=== PATIENT | male | born 1980 | race Caucasian/White ===

== ENCOUNTER 2020-01-16 00:09 | Inpatient (IN) | payer OTHER ==
[~2020-01-16] VITALS: Ht 170 cm; Wt 69.1 kg
[2020-01-16] VITALS (25 sets, daily range): BP systolic 85–132; BP diastolic 53–80
[~2020-01-16 00:09] MED LIST: ALPR2TAB6 PO; HALOPERIDOL 5 MG/ML (HALDOL) AMP ONE; HYOS0.1217 PO; INSU100I10 SQ; INSU100I14 SQ; INSU100I29 SQ; LORazepam INJ 2 MG/ML (ATIVAN) VIAL ONE; NF-ADDXR30 PO; ONDA-42 SL; RISP1TAB3 PO; VENL150C PO; diphenhydrAMINE 50 MG/ML INJ (BENADRYL) ONE
[2020-01-16] MEDS ORDERED: NS IV 1000 ML 1,000 ML IV SCH ×2 (00:10→00:50)
[2020-01-16] MEDS ORDERED: HALOPERIDOL 5 MG/ML (HALDOL) AMP IM/IV ONE (00:15)
[2020-01-16] MEDS ORDERED: diphenhydrAMINE 50 MG/ML INJ (BENADRYL) IVP ONE ×2 (00:15→00:30)
[2020-01-16] MEDS ORDERED: LORazepam INJ 2 MG/ML (ATIVAN) VIAL IVP ONE ×2 (00:15→00:30)
--- OUTSIDE RECORDS SUMMARY | 2020-01-16 00:16 | XMS REPORT ---
Author Author Darien VILLALOBOS Organization [facility] Address [address] [place] [address] Care Team Providers Care Building Associate Name Role Phone CHRISTOPHER VILLALOBOS Unavailable PROBLEMS Type Condition ICD9-CM Code [id number] Code Onset Dates Condition S tatus SNOMED Code Problem Diabetes type 1, controlled E10.9 Ac tive [id number] Problem Type 2 diabetes mellitus with hyperglycemia E11.65 Active 283279801618887 Problem Type 1 diabetes mellitus with hyperglycemia E10.65 Active [id number] Problem Uncontrolled type 1 diabetes mellitus without complication E10.9 Active 859090100 Problem Type 1 diabetes mellitus without complication E10. 9 Active 523432013 Problem Type 1 diabetes mellitus with diabetic polyneuropathy E10.42 Active 81785082 Problem Mood disorder F39 Active 297266 05 Problem Other chronic pain G89.29 Active 8 8128932 Problem Schizoaffective disorder, depressive type F25.1 Active [id number] ALLERGIES No Information ENCOUNTERS Encounter Location Date Diagnosis [facility] [address] [facility] [id number] [address] [place] [address] Oct, [facility] [address] [facility] [id number] [address] [place] [address] Jun, [facility] [address] [facility] [id number] [address] [place] [address] Jun, [facility] [address] [facility] [id number] [address] [place] [address] Jun, [facility] [address] [facility] [id number] [address] [place] [address] May, Type 1 diabetes mellitus wit hout complication E10.9 [facility] [address] [facility] [id number] [address] [place] [address] May, Type 1 diabetes mellitus wit hout complication E10.9 ; Encounter for immunization Z23 and Mood disorder F39 [facility] [address] [id number] [address] [place] [address] December, [place] [address] [id number] [address] [place] [address] Nov, [place] [address] [facility] [id number] [address] [place] [address] Nov, Uncontrolled type 1 diabetes mellitus without complication E10.9 [place] [address] [facility] [id number] [address] [place] [address] Nov, Impingement syndrome, should er, right M75.41 and Adhesive capsulitis of right shoulder M75.01 [place] [address] [facility] [id number] [address] [place] [address] Nov, Uncontrolled type 1 diabetes mellitus without complication E10.9 [place] [address] [place] [id number] [address] [place] [address] Oct, Uncontrolled type 1 diabetes mellitus without complication E10.9 ; Other chronic pain G89.29 ; Pain in right shoulder M25.511 and Schizoaffective disorder, depressive type F25.1 [place] [address] [facility] [id number] [address] [place] [address] May, Mood disorder F39 and Contro lled diabetes mellitus type 1 without complications E10.9 [place] [address] [facility] [id number] [address] [place] [address] May, [place] [address] [facility] [id number] [address] [place] [address] May, [place] [address] [facility] [id number] [address] [place] [address] 30 Apr, 2016 Mood disorder F39 ; 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 and Type 1 diabetes mellitus with hyperglycemia E10.65 [place] [address] [facility] [id number] [address] [place] [address] Apr, Mood disorder F39 [place] [address] [id number] [address] [place] [address] Mar, [facility] [address] [id number] [address] [place] [address] Feb, [facility] [address] [id number] [address] [place] [address] Jan, [facility] [address] [facility] [id number] [address] [place] [address] Jan, [facility] [address] [id number] [address] [place] [address] Jan, [facility] [address] [facility] [id number] [address] [place] [address] December, [facility] [address] [facility] [id number] [address] [place] [address] December, 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 and Controlled type 1 diabetes mellitus with diabetic neuropathy, with long-term current use of insulin E10.40 [facility] [address] [facility] [id number] [address] [place] [address] December, Schizo-affective schizophren ia F25.0 [facility] [address] [facility] [id number] [address] [place] [address] Nov, [facility] [address] [facility] [id number] [address] [place] [address] Nov, Anxiety disorder, unspecifie d F41.9 and Schizo-affective schizophrenia F25.0 [facility] [address] [facility] [id number] [address] [place] [address] Nov, Schizo-affective schizophren ia F25.0 [facility] [address] [facility] [id number] [address] [place] [address] Oct, [facility] [address] [facility] [id number] [address] [place] [address] Sep, [facility] [address] [place] [id number] [address] [place] [address] Sep, [facility] [address] [place] [id number] [place] [address] Sep, [facility] [address] [place] [id number] [address] [place] [address] Aug, [facility] [address] [address] Aug, [facility] [address] [place] [id number] [place] [address] Jul, [place] [address] [address] Jul, Diabetes type 1, controlled E10.9 [place] [address] [address] Jun, Diabetes mellitus without me ntion of complication, type II or unspecified type, uncontrolled 250.02 [place] [address] [address] 09 Jun, 2015 Diabetes type 1, controlled E10.9 [place] [address] [address] May, Diabetes mellitus without me ntion of complication, type II or unspecified type, uncontrolled 250.02 [place] [address] [address] May, Anxiety 300.00 [facility] [address] [id number] 09 May, 2015 Diabetes type 1, controlled E10.9 ; Schizo-affective schizophrenia F25.0 ; Mood disorder F39 and Bipolar 1 disorder F31.9 [place] [address] [address] May, [facility] [address] [address] May, Anxiety F41.9 and Depression F32.9 [facility] [address] [address] Apr, Diabetes mellitus without me ntion of complication, type II or unspecified type, uncontrolled 250.02 [facility] [address] [place] [id number] [place] [address] Apr, Anxiety 300.00 and Diabetes mellitus without mention of complication, type II or unspecified type, uncontrolled 250.02 [facility] [address] [address] Apr, [facility] [address] [address] Apr, Anxiety 300.00 and Depressio n 311 [facility] [address] [address] Apr, Major depression, recurrent 296.30 ; Anxiety, generalized 300.02 and No condition on Prole II V71.09 [facility] [address] [address] Apr, [facility] [address] [address] Mar, Diabetes mellitus without me ntion of complication, type II or unspecified type, uncontrolled 250.02 and Anxiety 300.00 [facility] [address] [address] Mar, [facility] [address] [address] Feb, [facility] [address] [address] Feb, [facility] [address] [address] Feb, [facility] [address] [address] Jan, [facility] [address] [id number] [address] [place] [address] Jan, [facility] [address] [id number] [address] [place] [address] Jan, [facility] [address] [id number] [address] [place] [address] Jan, [facility] [address] [id number] [address] [place] [address] December, [facility] [address] [id number] [address] [place] [id number] December, Dental examination V72.2 [facility] [address] [id number] [address] [place] [address] December, Tooth pain 525.9 [facility] [address] [id number] [address] [place] [address] December, [facility] [address] [id number] [address] [place] [address] Nov, [facility] [address] [id number] [address] [place] [address] Nov, [facility] [address] [id number] [address] [place] [address] Oct, [facility] [address] [id number] [address] [place] [address] Oct, [facility] [address] [id number] [address] [place] [address] Sep, [facility] [address] [id number] [address] [place] [address] Sep, [facility] [address] [id number] [address] [place] [address] Sep, [facility] [address] [id number] [address] [place] [address] Sep, [facility] [address] [id number] [address] [place] [address], [place] [address] Aug, [facility] [address] [id number] [address] [place] [address], [place] [address] Aug, [facility] [address] [id number] [address] [place] [address], [place] [address] Aug, [facility] [address] [id number] [address] [place] [address], [place] [address] Aug, [facility] [address] [id number] [address] [place] [address], [place] [address] Jul, [facility] [address] [id number] [address] [place] [address], [place] [address] Jul, [facility] [address] [id number] [address] [place] [address], [place] [address] Jun, [facility] [address] [id number] [address] [place] [address], [place] [address] Jun, [facility] [address] [id number] [address] [place] [address], [place] [address] May, [facility] [address] [id number] [address] [place] [address], [place] [address] May, [facility] [address] [id number] [address] [place] [address], [place] [address] May, [facility] [address] [id number] [address] [place] [address], [place] [address] May, [facility] [address] [id number] [address] [place] [address], [place] [address] May, [facility] [address] [id number] [address] [place] [address], [place] [address] May, [facility] [address] [id number] [address] [place] [address], [place] [address] Apr, [facility] [address] [id number] [address] [place] [address], [place] [address] Apr, [facility] [address] [id number] [facility] [place] [address] Apr, [facility] [address] [id number] [address] [place] [address], [place] [address] Apr, [facility] [address] [id number] [address] [place] [address], [place] [address] Apr, [facility] [address] [id number] [address] [place] [address], [place] [address] Apr, [facility] [address] [id number] [address] [place] [address], [place] [address] Mar, [facility] [address] [id number] [address] [place] [address], [place] [address] Mar, [facility] [address] [id number] [address] [place] [address], [place] [address] Mar, [facility] [address] [id number] [address] [place] [address], [place] [address] Mar, [facility] [address] [id number] [address] [place] [address], [place] [address] Feb, [facility] [address] [id number] [address] [place] [address], [place] [address] Feb, [facility] [address] [id number] [address] [place] [address], [place] [address] Feb, [facility] [address] [id number] [address] [place] [address], [place] [address] Feb, [facility] [address] [id number] [address] [place] [address], [place] [address] Jan, [facility] [address] [id number] [address] [place] [address], [place] [address] Jan, [facility] [address] [id number] [address] [place] [address], [place] [address] 16 Jan, 2014 [facility] [address] [id number] [address] [place] [address], [place] [address] Jan, [facility] [address] [id number] [facility] [place] [address] Jan, [facility] [address] [id number] [address] [place] [address], [place] [address] Jan, [facility] [address] [id number] [address] [place] [address], [place] [address] Jan, [facility] [address] [id number] [address] [place] [address], [place] [address] Jan, [facility] [address] [id number] [address] [place] [address], [place] [address] Jan, [facility] [address] [id number] [address] [place] [address], [place] [address] Jan, [facility] [address] [id number] [address] [place] [address], [place] [address] December, [facility] [address] [id number] [address] [place] [address], [place] [address] December, [facility] [address] [id number] [address] [place] [address], [place] [address] December, [facility] [address] [id number] [address] [place] [address], [place] [address] December, [facility] [address] [id number] [address] [place] [address], [place] [address] December, [facility] [address] [id number] [address] [place] [address], [place] [address] Nov, [facility] [address] [id number] [address] [place] [address], [place] [address] Nov, [facility] [address] [id number] [address] [place] [address], [place] [address] Nov, [facility] [address] [id number] [address] [place] [address], [place] [address] Oct, [facility] [address] [id number] [facility] [place] [address] 29 Oct, 2013 [facility] [address] [id number] [address] [place] [address], [place] [address] 29 Oct, 2013 [facility] [address] [id number] [facility] [place] [address] Oct, [facility] [address] [id number] [address] [place] [address], [place] [address] Oct, [facility] [address] [id number] [address] [place] [address], [place] [address] Oct, [facility] [address] [id number] [address] [place] [address], [place] [address] Oct, [facility] [address] [id number] [address] [place] [address], [place] [address] Oct, [facility] [address] [id number] [address] [place] [address], [place] [address] Oct, [facility] [address] [id number] [address] [place] [address], [place] [address] Sep, [facility] [address] [id number] [address] [place] [address], [place] [address] Sep, [facility] [address] [id number] [address] [place] [address], [place] [address] Aug, [facility] [address] [id number] [address] [place] [address], [place] [address] Aug, [facility] [address] [id number] [address] [place] [address], [place] [address] Aug, [facility] [address] [id number] [address] [place] [address], [place] [address] Aug, [facility] [address] [id number] [address] [place] [address], [place] [address] Jul, [facility] [address] [id number] [address] [place] [address], [place] [address] Jul, [facility] [address] [id number] [address] [place] [address], [place] [address] Jul, [facility] [address] [id number] [address] [place] [address], [place] [address] Jul, [facility] [address] [id number] [address] [place] [address], [place] [address] Jun, [facility] [address] [id number] [address] [place] [address], [place] [address] Jun, [facility] [address] [id number] [address] [place] [address], [place] [address] Jun, [facility] [address] [id number] [address] [place] [address], [place] [address] Jun, [facility] [address] [id number] [address] [place] [address], [place] [address] May, [facility] [address] [id number] [address] [place] [address], [place] [address] May, [facility] [address] [id number] [address] [place] [address], [place] [address] May, [facility] [address] [id number] [address] [place] [address] May, [facility] [address] [id number] [address] [place] [address] May, [facility] [address] [id number] [address] [place] [address] May, [facility] [address] [id number] [address] [place] [address], [place] [address] Apr, [facility] [address] [id number] [address] [place] [address], [place] [address] Mar, [facility] [address] [id number] [address] [place] [address], [place] [address] Mar, [facility] [address] [id number] [address] [place] [address], [place] [address] Mar, [facility] [address] [id number] [address] [place] [address], [place] [address] Feb, [facility] [address] [id number] [address] [place] [address], [place] [address] Feb, [facility] [address] [id number] [address] [place] [address], [place] [address] Feb, [facility] [address] [id number] [address] [place] [address], [place] [address] Jan, [facility] [address] [id number] [address] [place] [address], [place] [address] Jan, [facility] [address] [id number] [address] [place] [address], [place] [address] December, [facility] [address] [id number] [address] [place] [address], [place] [address] December, [facility] [address] [id number] [address] [place] [address], [place] [address] December, [facility] [address] [id number] [address] [place] [address], [place] [address] Nov, [facility] [address] [id number] [address] [place] [address], [place] [address] Nov, [facility] [address] [id number] [address] [place] [address], [place] [address] Nov, [facility] [address] [id number] [address] [place] [address], [place] [address] 2012 [facility] [address] [id number] [address] [place] [address], [place] [address] 15 Nov, 2012 [facility] [address] [id number] [address] [place] [address], [place] [address] Nov, [facility] [address] [id number] [address] [place] [address], [place] [address] Oct, [facility] [address] [id number] [address] [place] [address], [place] [address] 14 Oct, 2012 [facility] [address] [id number] [address] [place] [address], [place] [address] Oct, [facility] [address] [id number] [address] [place] [address], [place] [address] 06 Oct, 2012 [facility] [address] [id number] [address] [place] [address], [place] [address] 28 Sep, 2012 [facility] [address] [id number] [address] [place] [address], [place] [address] Sep, [facility] [address] [id number] [address] [place] [address], [place] [address] Sep, [facility] [address] [id number] [address] [place] [address], [place] [address] Sep, [facility] [address] [id number] [address] [place] [address], [place] [address] Sep, [facility] [address] [id number] [address] [place] [address], [place] [address] Aug, [facility] [address] [id number] [address] [place] [address], [place] [address] Aug, [facility] [address] [id number] [address] [place] [address], [place] [address] Aug, [facility] [address] [id number] [address] [place] [address], [place] [address] Aug, [facility] [address] [id number] [address] [place] [address], [place] [address] Aug, [facility] [address] [id number] [address] [place] [address], [place] [address] Aug, [facility] [address] [id number] [address] [place] [address], [place] [address] 15 May, 2011 [facility] [address] [id number] [address] [place] [address] May, IMMUNIZATIONS No Known Immunizations SOCIAL HISTORY Never Assessed REASON FOR VISIT PLAN OF CARE VITAL SIGNS Height 69 in 2013-07-03 Weight 151 lbs 2013-07-03 Heart Rate 100 bpm 2013-07-03 Respiratory Rate 20 2013-07-03 Blood pressure systolic 156 mmHg 2013-07-03 Blood pressure diastolic 90 mmHg 2013-07-03 MEDICATIONS Unknown Medications RESULTS No Results PROCEDURES No Known procedures INSTRUCTIONS MEDICATIONS ADMINISTERED No Known Medications MEDICAL (GENERAL) HISTORY Type Description Date Medical History type I diabetes Medical History hx of MRSA infections Medical History depression Medical History anxiety Surgical History I & D-MRSA Hospitalization History MRSA 2003
--- OUTSIDE RECORDS SUMMARY | 2020-01-16 00:16 | XMS REPORT ---
Author Author [employer] [facility] Address [address] [address] Care Team Providers Care Vision Care Associate Name Role Phone WILFREDOCHRISTOPHER Unavailable Unavailable WILFREDO, CHRISTOPHER Unavailable Unavailable WILFREDO, CHRISTOPHER Unavailable WILFREDO, CHRISTOPHER Unavailable Unavailable [facility] Unavailable DOUG SIERRA Unavailable Unavailable CORDELL MELENDEZ Unavailable Unavailable Migration, Doctor Unavailable Unavailable Migration, Doctor Unavailable Unavailable Migration, Doctor Unavailable Unavailable Migration, Doctor Unavailable Unavailable Migration, Doctor Unavailable Unavailable Migration, Doctor Unavailable Unavailable Migration, Doctor Unavailable Unavailable Migration, Doctor Unavailable Unavailable WILFREDO, CHRISTOPHER Unavailable WILFREDO, CHRISTOPHER Unavailable WILFREDO, CHRISTOPHER Unavailable WILFREDO, CHRISTOPHER Unavailable WILFREDO, CHRISTOPHER Unavailable WILFREDO, CHRISTOPHER Unavailable CORDELL Toscano Unavailable WILFREDO, CHRISTOPHER Unavailable WILFREDO, CHRISTOPHER Unavailable WILFREDO, CHRISTOPHER Unavailable WILFREDO, CHRISTOPHER Unavailable WILFREDO, CHRISTOPHER Unavailable WILFREDO, CHRISTOPHER Unavailable WILFREDO, CHRISTOPHER Unavailable CORDELL Toscano Unavailable NAHUN LLAMAS Unavailable Unavailable WILFREDO, CHRISTOPHER Unavailable WILFREDO, CHRISTOPHER Unavailable CORDELL Toscano Unavailable WILFREDO, CHRISTOPHER Unavailable WILFREDO, CHRISTOPHER Unavailable WILFREDO, CHRISTOPHER Unavailable WILFREDO, CHRISTOPHER Unavailable WILFREDO, CHRISTOPHER Unavailable WILFREDO, CHRISTOPHER Unavailable WILFREDO, CHRISTOPHER Unavailable WILFREDO, CHRISTOPHER Unavailable WILFREDO, CHRISTOPHER Unavailable WILFREDO, CHRISTOPHER Unavailable WILFREDO, CHRISTOPHER Unavailable WILFREDO, CHRISTOPHER Unavailable WILFREDO, CHRISTOPHER Unavailable WILFREDO, CHRISTOPHER Unavailable WILFREDO, CHRISTOPHER Unavailable WILFREDO, CHRISTOPHER Unavailable Migration, Doctor Unavailable Unavailable WILFREDO, CHRISTOPHER Unavailable WILFREDO, CHRISTOPHER Unavailable Unavailable Unavailable Unavailable Unavailable Allergies The data below is from unstructured sources Substance Reaction Event Type Date Status N.K.D.A. Unknown Non Corey g Allergy December, Unknown Substance Reaction Event Type N.K.D.A. Info Not Available Non Drug Allergy No Information Medications The data below is from unstructured sourcesNo Known Medications No Known Medications No Known Medications No Known Medications No Known Medications No Known Medications No Known Medications No Known Medications No Known Medications No Known Medications No Known Medications Unknown Medications Unknown Medications Unknown Medications Unknown Medications Unknown Medications Unknown Medications Unknown Medications Unknown Medications Unknown Medications Unknown Medications Unknown Medications Unknown Medications Unknown Medications Unknown Medications Unknown Medications Unknown Medications Unknown Medications Unknown Medications Unknown Medications Unknown Medications Unknown Medications Unknown Medications Unknown Medications Unknown Medications Unknown Medications Unknown Medications Unknown Medications Unknown Medications Unknown Medications Unknown Medications Unknown Medications Unknown Medications Unknown Medications Unknown Medications Unknown Medications Unknown Medications Unknown Medications Unknown Medications Unknown Medications Unknown Medications Unknown Medications Unknown Medications Unknown Medications Unknown Medications Unknown Medications Unknown Medications Unknown Medications Unknown Medications Unknown Medications Unknown Medications Unknown Medications Unknown Medications Unknown Medications Unknown Medications Unknown Medications Unknown Medications Unknown Medications No Known Medications No Known Medications No Known Medications No Known Medications No Known Medications No Known Medications No Known Medications No Known Medications No Known Medications No Known Medications No Known Medications No Known Medications No Known Medications No Known Medications No Known Medications No Known Medications No Known Medications No Known Medications No Known Medications No Known Medications No Known Medications No Known Medications No Known Medications No Known Medications No Known Medications No Known Medications No Known Medications No Known Medications No Known Medications No Known Medications No Known Medications No Known Medications No Known Medications No Known Medications No Known Medications No Known Medications No Known Medications No Known Medications No Known Medications No Known Medications No Known Medications No Known Medications No Known Medications No Known Medications No Known Medications No Known Medications No Known Medications No Known Medications No Known Medications No Known Medications No Known Medications No Known Medications No Known Medications No Known Medications No Known Medications No Known Medications Unknown Medications No Known Medications Problems Problem Normalized Date Last Normalized Normalized Provider Fa cility Classification Problem(s) Recorded Problem Problem Sta tus Duration Residual Chronic pain Episodic Active CHRISTOPHER Lo ity codes; Translations: [address] [place] [address] unclassified [ Other of [facility] (20 sources.) chronic pain] [place] ([id number]) Immunizations Encounter for Episodic Active CHRISTOPHER Briseno ommunity and screening immunization [address] [place] [address] for infectious Translations: of [facility] disease (20 [ - Encounter [place] ([id number]) sources.) for immunization Z23] Procedures Procedure Normalized Procedure Procedure Result Performer Facility Date 05-27-2013 Blood count complete no information no name [facility] auto&auto difrntl wbc [facility] ([id number]) 05-27-2013 Collection venous no information no name [facility] blood venipuncture [facility] ([id number]) 05-27-2013 Comprehensive no information no name [facility] metabolic panel [facility] ([id number]) 02-03-2014 Hemoglobin no information no name [facility] glycosylated a1c [facility] ([id number]) 09-16-2013 Hemoglobin no information no name [facility] glycosylated a1c [facility] ([id number]) 05-27-2013 Lipid panel no information no name [facility] ([id number]) 02-14-2014 Psychotherapy no information no name [facility] w/patient 45 minutes [facility] ([id number]) 05-27-2013 Rheumatoid factor no information no name [facility] quantitative [facility] ([id number]) 09-16-2013 Urine albumin no information no name [facility] semiquantitative [facility] ([id number]) Immunizations Normalized Immunization Date Notes Care Provider Facili ty Immunization influenza, seasonal, 06-17-2019 no information no name [facility] injectable [facility] ([id number]) Results The data below is from unstructured sourcesNo Known Results No Known Results No Known Results No Known Results No Known Results No Known Results No Known Results No Known Results No Known Results No Known Results No Known Results No Known Results No Known Results No Known Results No Known Results No Known Results No Known Results No Known Results No Known Results No Known Results No Known Results No Known Results No Known Results No Known Results No Known Results No Known Results No Known Results No Known Results No Known Results No Known Results No Known Results No Known Results No Known Results No Known Results No Known Results No Known Results No Known Results No Known Results No Known Results No Known Results No Known Results No Known Results No Known Results No Results No Results No Results No Results No Results No Results No Results No Results No Results No Results No Results No Results No Results No Results No Results No Results No Results No Results No Results No Results No Results No Results No Results No Results No Results No Results No Results No Results No Results No Results No Results No Results No Results No Results No Results No Results No Results No Results No Results No Results No Results No Results No Results No Results No Results No Results No Results No Results No Results No Results No Results No Results No Results No Results No Results No Results No Results No Results No Results No Results Vital Signs Vital Sign Value Interpretation Reference Date Time Care Prov ider Facility (Normalized) (Normalized) Range Body height 175.26 cm (no code) cm 11-15-2013 [facility] [id number] [address] [place] [address] ([id number]) Body height 175.26 cm (no code) cm 10-16-2013 [facility] 11:27-0500 15048 [facility] ([id number]) Body height 175.26 cm (no code) cm 09-16-2013 [facility] 14:15-[id number] [place] [address] ([id number]) Body height 175.26 cm (no code) cm 07-03-2013 [facility] 15:04-0500 [id number] (Other Health Center Phone: of [facility] ([id number]) Body 97.5 [degF] (no code) 97.8 - 99.0 03-03-2014 [facility] Temperature [degF] 10:32-[id number] [place] [address] ([id number]) Body 97.3 [degF] (no code) 97.8 - 99.0 02-03-2014 [facility] Temperature [degF] 18:18-[id number] [place] [address] ([id number]) Body 97.3 [degF] (no code) 97.8 - 99.0 11-15-2013 [facility] temperature [degF] 15:34-0400 40840 [facility] ([id number]) Body 96.8 [degF] (no code) 97.8 - 99.0 10-16-2013 [facility] temperature [degF] 11:270500 43140 [facility] ([id number]) Body 97.2 [degF] (no code) 97.8 - 99.0 09-16-2013 [facility] temperature [degF] 14:15-0500 75838 [facility] ([id number]) Body weight 69.81 kg (no code) kg 03-03-2014 [facility] 10:32-0400 12086 [facility] ([id number]) Body weight 68.09 kg (no code) kg 02-03-2014 [facility] 18:18-[id number] [place] [address] ([id number]) Body weight 71.99 kg (no code) kg 11-15-2013 [facility] 15:34-[id number] [place] [address] ([id number]) Body weight 68.22 kg (no code) kg 10-16-2013 [facility] 11:2705[id number] [place] [address] ([id number]) Body weight 68.72 kg (no code) kg 09-16-2013 [facility] 14:150500 [address] [place] [address] ([id number]) Body weight 68.49 kg (no code) kg 07-03-2013 [facility] 15:040500 [id number] (Other Health Center Phone: of [facility] ([id number]) Height 175.26 cm (no code) cm 03-03-2014 CHRISTOPHER Briseno [facility] 10:32-0400 20402 [facility] ([id number]) Height 175.26 cm (no code) cm 02-03-2014 CHRISTOPHER Briseno [facility] 18:180400 [id number] [place] [address] ([id number]) Interventions No Information Plan of Treatment The data below is from unstructured sources Discharge Date 02/10/16 4:58pm Disposition 81 HOME-SELF CARE W PLAN READM Instructions/Education Provided ALCO HOL AND SUBSTANCE ABUSE Prescriptions See Medication Section Additional Instructions/Education pt to be discharged to [facility] for [facility] Care Plan and Goals See Discharge In structions Section Goals No Information Social History No Information Functional Status The data below is from unstructured sources Query Response Date Etienne rded Patient Orientation Person Place Time Situation February 10, 2016 4:59pm Comprehension Ability Understands Co ncepts February 10, 2016 4:00pm Mental Status No Information Encounters Encounter Normalized Encounter Encounter Diagnosis Care Provi denilson Organization Date Type 07-12-2019 [facility] no information MANOHAR DALJIT (no phone) [facility] (no phone) 06-17-2019 [facility] Type 1 diabetes NAHUN LLAMAS (no [facility] mellitus without phone) (no phone) complications 07-12-2019 Patient encounter no information no name no or ganization name procedure 11-11-2019 Telephone encounter no information NAHUN LLAMAS (n o [facility] phone) (no phone) 07-12-2019 Telephone encounter no information NAHUN LLAMAS (n o [facility] phone) (no phone) 07-04-2019 Telephone encounter no information NAHUN LLAMAS (n o [facility] phone) (no phone) 06-19-2019 Telephone encounter Type 1 diabetes NAHUN LLAMAS ( no [facility] mellitus without phone) (no phone) complications Medical Equipment No Information Payers No Information History general Narrative - Reported Note Type Note Facility History general Narrative - Reported Type Medical type I diabetes History Medical hx of MRSA infections History Medical depression History Medical anxiety History Surgical I & D-MRSA History Hospitaliz MRSA 2004 ation History [facility] ([id number]) Summary Purpose eClinicalWorks SubmissioneClinicalWorks SubmissioneClinicalWorks SubmissioneClinicalWorks SubmissioneClinicalWorks SubmissioneClinicalWorks SubmissioneClinicalWorks SubmissioneClinicalWorks SubmissioneClinicalWorks SubmissioneClinicalWorks SubmissioneClinicalWorks SubmissioneClinicalWorks SubmissioneClinicalWorks SubmissioneClinicalWorks SubmissioneClinicalWorks SubmissioneClinicalWorks SubmissioneClinicalWorks SubmissioneClinicalWorks SubmissioneClinicalWorks SubmissioneClinicalWorks SubmissioneClinicalWorks SubmissioneClinicalWorks SubmissioneClinicalWorks SubmissioneClinicalWorks Submission Advance Directives Directive Response Recor ded Date/Time Advance Directives No 3:12am Health Care Power of Automatic Maintainer No 02/10/16 3:12am Organ Donor Yes 02/10/16 3:12am Resuscitation Status DNR-Pt Request 02/10/16 3:12am Discharge Instructions Patient Instructions Physician Instructions New, Converted or Re-Newed RX: Other (no changes to insulin regimen) Goal/Follow Up Appt: Please call [facility] at [phone] to arrange an appointment with Jitendra upon discharge. Patient Instructions: Please take insulin as prescribed. [facility]: Per [facility]. Discharge Diet: ADA Diet Pneu Vac Indicated: Yes Care Plan Patient Instructions:: Please take insulin as prescribed. Goal:: Please call [facility] at [phone] to arrange an appointment with Jitendra upon discharge. Additional Source Comments This clinical document has been generated using [employer] software that has been certified by the Office of the National Coordinator for Health Information Technology (ONC 15.99.04.3023.Diam.31.00.0.165801) and the National Committee for [employer] (NCQA, as an eMeasure certified technology). FOR RECORDS PERTAINING TO PATIENTS WHO ARE OR HAVE BEEN ENROLLED IN A CHEMICAL D EPENDENCY/SUBSTANCE ABUSE PROGRAM, SOME INFORMATION MAY BE OMITTED. This clinica l summary was aggregated from multiple sources. Caution should be exercised in using it in the provision of clinical care. This summary normalizes information from multiple sources, and as a consequence, information in this document may ma terially change the coding, format and clinical context of patient data. In radha tion, data may be omitted in some cases. CLINICAL DECISIONS SHOULD BE BASED ON T HE PRIMARY CLINICAL RECORDS. [employer] provides no warranty or guara ntee of the accuracy or completeness of information in this document.The followi ng information is based on time limited clinical information UNRECOGNIZED CONTENT PROVIDED BELOW FOR UNRECOGNIZED SECTION REASON FOR VISIT [id number] UNRECOGNIZED CONTENT PROVIDED BELOW FOR UNRECOGNIZED SECTION MEDICAL (GENERAL) HISTORY Type Description Date Medical History type I diabetes Medical History hx of MRSA infections Medical History depression Medical History anxiety Surgical History I & D-MRSA Hospitalization History MRSA 2004
--- OUTSIDE RECORDS SUMMARY | 2020-01-16 00:17 | XMS REPORT ---
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 9 Active 471883826 Problem Type 1 diabetes mellitus with diabetic polyneuropathy E10.42 Active 09627350 Problem Mood disorder F39 Active 212918 05 Problem Other chronic pain G89.29 Active 8 6281366 Problem Schizoaffective disorder, depressive type F25.1 Active [id number] ALLERGIES No Information ENCOUNTERS Encounter Location Date Diagnosis [facility] [address] [facility] [id number] [address] [place] [id number] Oct, [facility] [address] [facility] [id number] [address] [place] [id number] Jun, [facility] [address] [facility] [id number] [address] [place] [id number] Jun, [facility] [address] [facility] [id number] [address] [place] [id number] Jun, [facility] [address] [facility] [id number] [address] [place] [id number] May, Type 1 diabetes mellitus wit hout complication E10.9 [facility] [address] [facility] [id number] [address] [place] [id number] May, Type 1 diabetes mellitus wit hout complication E10.9 ; Encounter for immunization Z23 and Mood disorder F39 [facility] [address] [id number] [address] [place] [id number] December, [place] [address] [id number] [address] [place] [id number] Nov, [place] [address] [facility] [id number] [address] [place] [id number] Nov, Uncontrolled type 1 diabetes mellitus without complication E10.9 [place] [address] [facility] [id number] [address] [place] [phone] Nov, Impingement syndrome, should er, right M75.41 and Adhesive capsulitis of right shoulder M75.01 [place] [address] [facility] [id number] [address] [place] [address] Nov, Uncontrolled type 1 diabetes mellitus without complication E10.9 [place] [address] [place] [id number] [address] [place] [phone] Oct, Uncontrolled type 1 diabetes mellitus without complication E10.9 ; Other chronic pain G89.29 ; Pain in right shoulder M25.511 and Schizoaffective disorder, depressive type F25.1 [place] [address] [facility] [id number] [address] [place] [phone] May, Mood disorder F39 and Contro lled diabetes mellitus type 1 without complications E10.9 [place] [address] [facility] [id number] [address] [place] [address] May, [place] [address] [facility] [id number] [address] [place] [id number] May, [place] [address] [facility] [id number] [address] [place] [id number] 30 Apr, 2016 Mood disorder F39 ; 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 and Type 1 diabetes mellitus with hyperglycemia E10.65 [place] [address] [facility] [id number] [address] [place] [phone] Apr, Mood disorder F39 [place] [id number] [id number] [address] [place] [phone] Mar, [facility] [address] [id number] [address] [place] [id number] Feb, [facility] [address] [id number] [address] [place] [id number] Jan, [facility] [address] [facility] [id number] [address] [place] [id number] Jan, [facility] [address] [id number] [address] [place] [id number] Jan, [facility] [address] [facility] [id number] [address] [place] [id number] December, [facility] [address] [facility] [id number] [address] [place] [phone] December, 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 and Controlled type 1 diabetes mellitus with diabetic neuropathy, with long-term current use of insulin E10.40 [facility] [address] [facility] [id number] [address] [place] [id number] December, Schizo-affective schizophren ia F25.0 [facility] [address] [facility] [id number] [address] [place] [phone] Nov, [facility] [address] [facility] [id number] [address] [place] [id number] Nov, Anxiety disorder, unspecifie d F41.9 and Schizo-affective schizophrenia F25.0 [facility] [address] [facility] [id number] [address] [place] [phone] Nov, Schizo-affective schizophren ia F25.0 [facility] [address] [facility] [id number] [address] [place] [phone] Oct, [facility] [address] [facility] [id number] [address] [place] [phone] Sep, [facility] [address] [place] [id number] [address] [place] [phone] Sep, [facility] [address] [place] [id number] [place] [address] Sep, [facility] [address] [place] [id number] [address] [place] [id number] Aug, [facility] [address] [address] Aug, [facility] [address] [place] [id number] [place] [address] Jul, [place] [address] [id number] Jul, Diabetes type 1, controlled E10.9 [place] [address] [address] Jun, Diabetes mellitus without me ntion of complication, type II or unspecified type, uncontrolled 250.02 [place] [address] [id number] 09 Jun, 2015 Diabetes type 1, controlled E10.9 [place] [address] [address] May, Diabetes mellitus without me ntion of complication, type II or unspecified type, uncontrolled 250.02 [place] [address] [address] May, Anxiety 300.00 [facility] [address] [id number] 09 May, 2015 Diabetes type 1, controlled E10.9 ; Schizo-affective schizophrenia F25.0 ; Mood disorder F39 and Bipolar 1 disorder F31.9 [place] [address] [address] May, [facility] [address] [address] May, Anxiety F41.9 and Depression F32.9 [facility] [address] [address] Apr, Diabetes mellitus without me ntion of complication, type II or unspecified type, uncontrolled 250.02 [facility] [address] [place] [id number] [place] [address] Apr, Anxiety 300.00 and Diabetes mellitus without mention of complication, type II or unspecified type, uncontrolled 250.02 [facility] [address] [address] Apr, [facility] [address] [address] Apr, Anxiety 300.00 and Depressio n 311 [facility] [address] [address] Apr, Major depression, recurrent 296.30 ; Anxiety, generalized 300.02 and No condition on [place] II V71.09 [facility] [address] [address] Apr, [facility] [address] [address] Mar, Diabetes mellitus without me ntion of complication, type II or unspecified type, uncontrolled 250.02 and Anxiety 300.00 [facility] [address] [address] Mar, [facility] [address] [address] Feb, [facility] [address] [address] Feb, [facility] [address] [address] Feb, [facility] [address] [address] Jan, [facility] [address] [id number] [address] [place] [phone] Jan, [facility] [address] [id number] [address] [place] [phone] Jan, [facility] [address] [id number] [address] [place] [phone] Jan, [facility] [address] [id number] [address] [place] [phone] December, [facility] [address] [id number] [address] [place] [id number] December, Dental examination V72.2 [facility] [address] [id number] [address] [place] [phone] December, Tooth pain 525.9 [facility] [address] [id number] [address] [place] [phone] December, [facility] [address] [id number] [address] [place] [phone] Nov, [facility] [address] [id number] [address] [place] [id number] Nov, [facility] [address] [id number] [address] [place] [phone] Oct, [facility] [address] [id number] [address] [place] [id number] Oct, [facility] [address] [id number] [address] [place] [phone] Sep, [facility] [address] [id number] [address] [place] [id number] Sep, [facility] [address] [id number] [address] [place] [id number] Sep, [facility] [address] [id number] [address] [place] [phone] Sep, [facility] [address] [id number] [address] [place] [address], [place] [address] Aug, [facility] [address] [id number] [address] [place] [address], [place] [address] Aug, [facility] [address] [id number] [address] [place] [address], [place] [address] Aug, [facility] [address] [id number] [address] [place] [address], [place] [address] Aug, [facility] [address] [id number] [address] [place] [address], [place] [address] Jul, [facility] [address] [id number] [address] [place] [address], [place] [address] Jul, [facility] [address] [id number] [address] [place] [address], [place] [address] Jun, [facility] [address] [id number] [address] [place] [address], [place] [address] Jun, [facility] [address] [id number] [address] [place] [address], [place] [address] May, [facility] [address] [id number] [address] [place] [address], [place] [address] May, [facility] [address] [id number] [address] [place] [address], [place] [address] May, [facility] [address] [id number] [address] [place] [address], [place] [address] May, [facility] [address] [id number] [address] [place] [address], [place] [address] May, [facility] [address] [id number] [address] [place] [address], [place] [address] May, [facility] [address] [id number] [address] [place] [address], [place] [address] Apr, [facility] [address] [id number] [address] [place] [address], [place] [address] Apr, [facility] [address] [id number] [facility] [place] [address] Apr, [facility] [address] [id number] [address] [place] [address], [place] [address] Apr, [facility] [address] [id number] [address] [place] [address], [place] [address] Apr, [facility] [address] [id number] [address] [place] [address], [place] [address] Apr, [facility] [address] [id number] [address] [place] [address], [place] [address] Mar, [facility] [address] [id number] [address] [place] [address], [place] [address] Mar, [facility] [address] [id number] [address] [place] [address], [place] [address] Mar, [facility] [address] [id number] [address] [place] [address], [place] [address] Mar, [facility] [address] [id number] [address] [place] [address], [place] [address] Feb, [facility] [address] [id number] [address] [place] [address], [place] [address] Feb, [facility] [address] [id number] [address] [place] [address], [place] [address] Feb, [facility] [address] [id number] [address] [place] [address], [place] [address] Feb, [facility] [address] [id number] [address] [place] [address], [place] [address] Jan, [facility] [address] [id number] [address] [place] [address], [place] [address] Jan, [facility] [address] [id number] [address] [place] [address], [place] [address] 16 Jan, 2014 [facility] [address] [id number] [address] [place] [address], [place] [address] Jan, [facility] [address] [id number] [facility] [place] [address] Jan, [facility] [address] [id number] [address] [place] [address], [place] [address] Jan, [facility] [address] [id number] [address] [place] [address], [place] [address] Jan, [facility] [address] [id number] [address] [place] [address], [place] [address] Jan, [facility] [address] [id number] [address] [place] [address], [place] [address] Jan, [facility] [address] [id number] [address] [place] [address], [place] [address] Jan, [facility] [address] [id number] [address] [place] [address], [place] [address] December, [facility] [address] [id number] [address] [place] [address], [place] [address] December, [facility] [address] [id number] [address] [place] [address], [place] [address] December, [facility] [address] [id number] [address] [place] [address], [place] [address] December, [facility] [address] [id number] [address] [place] [address], [place] [address] December, [facility] [address] [id number] [address] [place] [address], [place] [address] Nov, [facility] [address] [id number] [address] [place] [address], [place] [address] Nov, [facility] [address] [id number] [address] [place] [address], [place] [address] Nov, [facility] [address] [id number] [address] [place] [address], [place] [address] Oct, [facility] [address] [id number] [facility] [place] [address] 29 Oct, 2013 [facility] [address] [id number] [address] [place] [address], [place] [address] 29 Oct, 2013 [facility] [address] [id number] [facility] [place] [address] Oct, [facility] [address] [id number] [address] [place] [address], [place] [address] Oct, [facility] [address] [id number] [address] [place] [address], [place] [address] Oct, [facility] [address] [id number] [address] [place] [address], [place] [address] Oct, [facility] [address] [id number] [address] [place] [address], [place] [address] Oct, [facility] [address] [id number] [address] [place] [address], [place] [address] Oct, [facility] [address] [id number] [address] [place] [address], [place] [address] Sep, [facility] [address] [id number] [address] [place] [address], [place] [address] Sep, [facility] [address] [id number] [address] [place] [address], [place] [address] Aug, [facility] [address] [id number] [address] [place] [address], [place] [address] Aug, [facility] [address] [id number] [address] [place] [address], [place] [address] Aug, [facility] [address] [id number] [address] [place] [address], [place] [address] Aug, [facility] [address] [id number] [address] [place] [address], [place] [address] Jul, [facility] [address] [id number] [address] [place] [address], [place] [address] Jul, [facility] [address] [id number] [address] [place] [address], [place] [address] Jul, [facility] [address] [id number] [address] [place] [address], [place] [address] Jul, [facility] [address] [id number] [address] [place] [address], [place] [address] Jun, [facility] [address] [id number] [address] [place] [address], [place] [address] Jun, [facility] [address] [id number] [address] [place] [address], [place] [address] Jun, [facility] [address] [id number] [address] [place] [address], [place] [address] Jun, [facility] [address] [id number] [address] [place] [address], [place] [address] May, [facility] [address] [id number] [address] [place] [address], [place] [address] May, [facility] [address] [id number] [address] [place] [address], [place] [address] May, [facility] [address] [id number] [address] [place] [address] May, [facility] [address] [id number] [address] [place] [address] May, [facility] [address] [id number] [address] [place] [address] May, [facility] [address] [id number] [address] [place] [address], [place] [address] Apr, [facility] [address] [id number] [address] [place] [address], [place] [address] Mar, [facility] [address] [id number] [address] [place] [address], [place] [address] Mar, [facility] [address] [id number] [address] [place] [address], [place] [address] Mar, [facility] [address] [id number] [address] [place] [address], [place] [address] Feb, [facility] [address] [id number] [address] [place] [address], [place] [address] Feb, [facility] [address] [id number] [address] [place] [address], [place] [address] Feb, [facility] [address] [id number] [address] [place] [address], [place] [address] Jan, [facility] [address] [id number] [address] [place] [address], [place] [address] Jan, [facility] [place] [address] [id number] [address] [place] [address], [place] [address] December, [facility] [place] [address] [id number] [address] [place] [address], [place] [address] December, [facility] [place] [address] [id number] [address] [place] [address], [place] [address] December, [facility] [place] [address] [id number] [address] [place] [address], [place] [address] Nov, [facility] [address] [id number] [address] [place] [address], [place] [address] Nov, [facility] [place] [address] [id number] [address] [place] [address], [place] [address] Nov, [facility] [place] [address] [id number] [address] [place] [address], [place] [address] 2012 [facility] [address] [id number] [address] [place] [address], [place] [address] 15 Nov, 2012 [facility] [address] [id number] [address] [place] [address], [place] [address] Nov, [facility] [place] [address] [id number] [address] [place] [address], [place] [address] Oct, [facility] [address] [id number] [address] [place] [address], [place] [address] 14 Oct, 2012 [facility] [address] [id number] [address] [place] [address], [place] [address] Oct, [facility] [address] [id number] [address] [place] [address], [place] [address] 06 Oct, 2012 [facility] [address] [id number] [address] [place] [address], [place] [address] 28 Sep, 2012 [facility] [address] [id number] [address] [place] [address], [place] [address] Sep, [facility] [address] [id number] [address] [place] [address], [place] [address] Sep, [facility] [address] [id number] [address] [place] [address], [place] [address] Sep, [facility] [address] [id number] [address] [place] [address], [place] [address] Sep, [facility] [address] [id number] [address] [place] [address], [place] [address] Aug, [facility] [address] [id number] [address] [place] [address], [place] [address] Aug, [facility] [address] [id number] [address] [place] [address], [place] [address] Aug, [facility] [address] [id number] [address] [place] [address], [place] [address] Aug, [facility] [address] [id number] [address] [place] [address], [place] [address] Aug, [facility] [address] [id number] [address] [place] [address], [place] [address] Aug, [facility] [address] [id number] [address] [place] [address], [place] [address] 15 May, 2011 [facility] [address] [id number] [address] [place] [address] May, IMMUNIZATIONS No Known Immunizations SOCIAL HISTORY Never Assessed REASON FOR VISIT PLAN OF CARE VITAL SIGNS MEDICATIONS Unknown Medications RESULTS No Results PROCEDURES No Known procedures INSTRUCTIONS MEDICATIONS ADMINISTERED No Known Medications MEDICAL (GENERAL) HISTORY Type Description Date Medical History type I diabetes Medical History hx of MRSA infections Medical History depression Medical History anxiety Surgical History [facility] Hospitalization History MRSA 2004
--- OUTSIDE RECORDS SUMMARY | 2020-01-16 00:17 | XMS REPORT ---
Author Author Darien VILLALOBOS Organization [facility] Address [address] [place] [address] Care Team Providers Care Inspector Air Carrier Name Role Phone CHRISTOPHER VILLALOBOS Unavailable PROBLEMS Type Condition ICD9-CM Code FAZ17-BW Code Onset Dates Condition S tatus SNOMED Code Problem Diabetes type 1, controlled E10.9 Ac tive 63265083 Problem Type 2 diabetes mellitus with hyperglycemia E11.65 Active 252609447539903 Problem Type 1 diabetes mellitus with hyperglycemia E10.65 Active [id number] Problem Uncontrolled type 1 diabetes mellitus without complication E10.9 Active 312122244 Problem Type 1 diabetes mellitus without complication E10. 9 Active 737697429 Problem Type 1 diabetes mellitus with diabetic polyneuropathy E10.42 Active 70537857 Problem Mood disorder F39 Active 077662 05 Problem Other chronic pain G89.29 Active 8 3899708 Problem Schizoaffective disorder, depressive type F25.1 Active [id number] ALLERGIES No Information ENCOUNTERS Encounter Location Date Diagnosis [facility] [address] [facility] [id number] [address] [place] [address] Oct, [facility] [address] [facility] [id number] [address] [place] [address] Jun, [facility] [address] [facility] [id number] [address] [place] [address] Jun, [facility] [address] [facility] [id number] [address] [place] [address] Jun, [facility] [address] [facility] [id number] [address] [place] [address] May, Type 1 diabetes mellitus wit hout complication E10.9 [facility] [address] [facility] [id number] [address] [place] [address] May, Type 1 diabetes mellitus wit hout complication E10.9 ; Encounter for immunization Z23 and Mood disorder F39 [facility] [address] [id number] [address] [place] [address] December, [place] [address] [id number] [address] [place] [address] Nov, [place] [address] [facility] [id number] [address] [place] [address] Nov, Uncontrolled type 1 diabetes mellitus without complication E10.9 [place] [address] [facility] [id number] [address] [place] [address] Nov, Impingement syndrome, should er, right M75.41 and Adhesive capsulitis of right shoulder M75.01 [place] [address] [facility] [id number] [address] [place] [address] Nov, Uncontrolled type 1 diabetes mellitus without complication E10.9 [place] [address] [place] [id number] [address] [place] [address] Oct, Uncontrolled type 1 diabetes mellitus without complication E10.9 ; Other chronic pain G89.29 ; Pain in right shoulder M25.511 and Schizoaffective disorder, depressive type F25.1 [place] [address] [facility] [id number] [address] [place] [address] May, Mood disorder F39 and Contro lled diabetes mellitus type 1 without complications E10.9 [place] [address] [facility] [id number] [address] [place] [address] May, [place] [address] [facility] [id number] [address] [place] [address] May, [place] [address] [facility] [id number] [address] [place] [address] 30 Apr, 2016 Mood disorder F39 ; 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 and Type 1 diabetes mellitus with hyperglycemia E10.65 [place] [address] [facility] [id number] [address] [place] [address] Apr, Mood disorder F39 [place] [address] [id number] [address] [place] [address] Mar, [facility] [address] [id number] [address] [place] [address] Feb, [facility] [address] [id number] [address] [place] [address] Jan, [facility] [address] [facility] [id number] [address] [place] [address] Jan, [facility] [address] [id number] [address] [place] [address] Jan, [facility] [address] [facility] [id number] [address] [place] [address] December, [facility] [address] [facility] [id number] [address] [place] [address] December, 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 and Controlled type 1 diabetes mellitus with diabetic neuropathy, with long-term current use of insulin E10.40 [facility] [address] [facility] [id number] [address] [place] [address] December, Schizo-affective schizophren ia F25.0 [facility] [address] [facility] [id number] [address] [place] [address] Nov, [facility] [address] [facility] [id number] [address] [place] [address] Nov, Anxiety disorder, unspecifie d F41.9 and Schizo-affective schizophrenia F25.0 [facility] [address] [facility] [id number] [address] [place] [address] Nov, Schizo-affective schizophren ia F25.0 [facility] [address] [facility] [id number] [address] [place] [address] Oct, [facility] [address] [facility] [id number] [address] [place] [address] Sep, [facility] [address] [place] [id number] [address] [place] [address] Sep, [facility] [address] [place] [id number] [place] [address] Sep, [facility] [address] [place] [id number] [address] [place] [address] Aug, [facility] [address] [address] Aug, [facility] [address] [place] [id number] [place] [address] Jul, [place] [address] [address] Jul, Diabetes type 1, controlled E10.9 [place] [address] [address] Jun, Diabetes mellitus without me ntion of complication, type II or unspecified type, uncontrolled 250.02 [place] [address] [address] 09 Jun, 2015 Diabetes type 1, controlled E10.9 [place] [address] [address] May, Diabetes mellitus without me ntion of complication, type II or unspecified type, uncontrolled 250.02 [place] [address] [address] May, Anxiety 300.00 [facility] [address] [address] 09 May, 2015 Diabetes type 1, controlled E10.9 ; Schizo-affective schizophrenia F25.0 ; Mood disorder F39 and Bipolar 1 disorder F31.9 [place] [address] [address] May, [facility] [address] [address] May, Anxiety F41.9 and Depression F32.9 [facility] [address] [address] Apr, Diabetes mellitus without me ntion of complication, type II or unspecified type, uncontrolled 250.02 [facility] [address] [place] [id number] [place] [address] Apr, Anxiety 300.00 and Diabetes mellitus without mention of complication, type II or unspecified type, uncontrolled 250.02 [facility] [address] [address] Apr, [facility] [address] [address] Apr, Anxiety 300.00 and Depressio n 311 [facility] [address] [address] Apr, Major depression, recurrent 296.30 ; Anxiety, generalized 300.02 and No condition on [place] V71.09 [facility] [address] [address] Apr, [facility] [address] [address] Mar, Diabetes mellitus without me ntion of complication, type II or unspecified type, uncontrolled 250.02 and Anxiety 300.00 [facility] [address] [address] Mar, [facility] [address] [address] Feb, [facility] [address] [address] Feb, [facility] [address] [address] Feb, [facility] [address] [address] Jan, [facility] [address] [id number] [address] [place] [address] Jan, [facility] [address] [id number] [address] [place] [address] Jan, [facility] [address] [id number] [address] [place] [address] Jan, [facility] [address] [id number] [address] [place] [address] December, [facility] [address] [id number] [address] [place] [id number] December, Dental examination V72.2 [facility] [address] [id number] [address] [place] [address] December, Tooth pain 525.9 [facility] [address] [id number] [address] [place] [address] December, [facility] [address] [id number] [address] [place] [address] Nov, [facility] [address] [id number] [address] [place] [address] Nov, [facility] [address] [id number] [address] [place] [address] Oct, [facility] [address] [id number] [address] [place] [address] Oct, [facility] [address] [id number] [address] [place] [address] Sep, [facility] [address] [id number] [address] [place] [address] Sep, [facility] [address] [id number] [address] [place] [address] Sep, [facility] [address] [id number] [address] [place] [address] Sep, [facility] [address] [id number] [address] [place] [address], [place] [address] Aug, [facility] [address] [id number] [address] [place] [address], [place] [address] Aug, [facility] [address] [id number] [address] [place] [address], [place] [address] Aug, [facility] [address] [id number] [address] [place] [address], [place] [address] Aug, [facility] [address] [id number] [address] [place] [address], [place] [address] Jul, [facility] [address] [id number] [address] [place] [address], [place] [address] Jul, [facility] [address] [id number] [address] [place] [address], [place] [address] Jun, [facility] [address] [id number] [address] [place] [address], [place] [address] Jun, [facility] [address] [id number] [address] [place] [address], [place] [address] May, [facility] [address] [id number] [address] [place] [address], [place] [address] May, [facility] [address] [id number] [address] [place] [address], [place] [address] May, [facility] [address] [id number] [address] [place] [address], [place] [address] May, [facility] [address] [id number] [address] [place] [address], [place] [address] May, [facility] [address] [id number] [address] [place] [address], [place] [address] May, [facility] [address] [id number] [address] [place] [address], [place] [address] Apr, [facility] [address] [id number] [address] [place] [address], [place] [address] Apr, [facility] [address] [id number] [facility] [place] [address] Apr, [facility] [address] [id number] [address] [place] [address], [place] [address] Apr, [facility] [address] [id number] [address] [place] [address], [place] [address] Apr, [facility] [address] [id number] [address] [place] [address], [place] [address] Apr, [facility] [address] [id number] [address] [place] [address], [place] [address] Mar, [facility] [address] [id number] [address] [place] [address], [place] [address] Mar, [facility] [address] [id number] [address] [place] [address], [place] [address] Mar, [facility] [address] [id number] [address] [place] [address], [place] [address] Mar, [facility] [address] [id number] [address] [place] [address], [place] [address] Feb, [facility] [address] [id number] [address] [place] [address], [place] [address] Feb, [facility] [address] [id number] [address] [place] [address], [place] [address] Feb, [facility] [address] [id number] [address] [place] [address], [place] [address] Feb, [facility] [address] [id number] [address] [place] [address], [place] [address] Jan, [facility] [address] [id number] [address] [place] [address], [place] [address] Jan, [facility] [address] [id number] [address] [place] [address], [place] [address] 16 Jan, 2014 [facility] [address] [id number] [address] [place] [address], [place] [address] Jan, [facility] [address] [id number] [facility] [place] [address] Jan, [facility] [address] [id number] [address] [place] [address], [place] [address] Jan, [facility] [address] [id number] [address] [place] [address], [place] [address] Jan, [facility] [address] [id number] [address] [place] [address], [place] [address] Jan, [facility] [address] [id number] [address] [place] [address], [place] [address] Jan, [facility] [address] [id number] [address] [place] [address], [place] [address] Jan, [facility] [address] [id number] [address] [place] [address], [place] [address] December, [facility] [address] [id number] [address] [place] [address], [place] [address] December, [facility] [address] [id number] [address] [place] [address], [place] [address] December, [facility] [address] [id number] [address] [place] [address], [place] [address] December, [facility] [address] [id number] [address] [place] [address], [place] [address] December, [facility] [address] [id number] [address] [place] [address], [place] [address] Nov, [facility] [address] [id number] [address] [place] [address], [place] [address] Nov, [facility] [address] [id number] [address] [place] [address], [place] [address] Nov, [facility] [address] [id number] [address] [place] [address], [place] [address] Oct, [facility] [address] [id number] [facility] [place] [address] 29 Oct, 2013 [facility] [address] [id number] [address] [place] [address], [place] [address] 29 Oct, 2013 [facility] [address] [id number] [facility] [place] [address] Oct, [facility] [address] [id number] [address] [place] [address], [place] [address] Oct, [facility] [address] [id number] [address] [place] [address], [place] [address] Oct, [facility] [address] [id number] [address] [place] [address], [place] [address] Oct, [facility] [address] [id number] [address] [place] [address], [place] [address] Oct, [facility] [address] [id number] [address] [place] [address], [place] [address] Oct, [facility] [address] [id number] [address] [place] [address], [place] [address] Sep, [facility] [address] [id number] [address] [place] [address], [place] [address] Sep, [facility] [address] [id number] [address] [place] [address], [place] [address] Aug, [facility] [address] [id number] [address] [place] [address], [place] [address] Aug, [facility] [address] [id number] [address] [place] [address], [place] [address] Aug, [facility] [address] [id number] [address] [place] [address], [place] [address] Aug, [facility] [address] [id number] [address] [place] [address], [place] [address] Jul, [facility] [address] [id number] [address] [place] [address], [place] [address] Jul, [facility] [address] [id number] [address] [place] [address], [place] [address] Jul, [facility] [address] [id number] [address] [place] [address], [place] [address] Jul, [facility] [address] [id number] [address] [place] [address], [place] [address] Jun, [facility] [address] [id number] [address] [place] [address], [place] [address] Jun, [facility] [address] [id number] [address] [place] [address], [place] [address] Jun, [facility] [address] [id number] [address] [place] [address], [place] [address] Jun, [facility] [address] [id number] [address] [place] [address], [place] [address] May, [facility] [address] [id number] [address] [place] [address], [place] [address] May, [facility] [address] [id number] [address] [place] [address], [place] [address] May, [facility] [address] [id number] [address] [place] [address] May, [facility] [address] [id number] [address] [place] [address] May, [facility] [address] [id number] [address] [place] [address] May, [facility] [address] [id number] [address] [place] [address], [place] [address] Apr, [facility] [address] [id number] [address] [place] [address], [place] [address] Mar, [facility] [address] [id number] [address] [place] [address], [place] [address] Mar, [facility] [address] [id number] [address] [place] [address], [place] [address] Mar, [facility] [address] [id number] [address] [place] [address], [place] [address] Feb, [facility] [address] [id number] [address] [place] [address], [place] [address] Feb, [facility] [address] [id number] [address] [place] [address], [place] [address] Feb, [facility] [address] [id number] [address] [place] [address], [place] [address] Jan, [facility] [address] [id number] [address] [place] [address], [place] [address] Jan, [facility] [address] [id number] [address] [place] [address], [place] [address] December, [facility] [address] [id number] [address] [place] [address], [place] [address] December, [facility] [address] [id number] [address] [place] [address], [place] [address] December, [facility] [address] [id number] [address] [place] [address], [place] [address] Nov, [facility] [address] [id number] [address] [place] [address], [place] [address] Nov, [facility] [address] [id number] [address] [place] [address], [place] [address] Nov, [facility] [address] [id number] [address] [place] [address], [place] [address] 2012 [facility] [address] [id number] [address] [place] [address], [place] [address] 15 Nov, 2012 [facility] [address] [id number] [address] [place] [address], [place] [address] Nov, [facility] [address] [id number] [address] [place] [address], [place] [address] Oct, [facility] [address] [id number] [address] [place] [address], [place] [address] 14 Oct, 2012 [facility] [address] [id number] [address] [place] [address], [place] [address] Oct, [facility] [address] [id number] [address] [place] [address], [place] [address] 06 Oct, 2012 [facility] [address] [id number] [address] [place] [address], [place] [address] 28 Sep, 2012 [facility] [address] [id number] [address] [place] [address], [place] [address] Sep, [facility] [address] [id number] [address] [place] [address], [place] [address] Sep, [facility] [address] [id number] [address] [place] [address], [place] [address] Sep, [facility] [address] [id number] [address] [place] [address], [place] [address] Sep, [facility] [address] [id number] [address] [place] [address], [place] [address] Aug, [facility] [address] [id number] [address] [place] [address], [place] [address] Aug, [facility] [address] [id number] [address] [place] [address], [place] [address] Aug, [facility] [address] [id number] [address] [place] [address], [place] [address] Aug, [facility] [address] [id number] [address] [place] [address], [place] [address] Aug, [facility] [address] [id number] [address] [place] [address], [place] [address] Aug, [facility] [address] [id number] [address] [place] [address], [place] [address] 15 May, 2011 [facility] [address] [id number] [address] [place] [address] May, IMMUNIZATIONS No Known Immunizations SOCIAL HISTORY [...]
--- OUTSIDE RECORDS SUMMARY | 2020-01-16 00:17 | XMS REPORT ---
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 9 Active 237907260 Problem Type 1 diabetes mellitus with diabetic polyneuropathy E10.42 Active 37298523 Problem Mood disorder F39 Active 145770 05 Problem Other chronic pain G89.29 Active 8 4853362 Problem Schizoaffective disorder, depressive type F25.1 Active [id number] ALLERGIES No Information ENCOUNTERS Encounter Location Date Diagnosis [facility] [address] [facility] [id number] [address] [place] [address] Oct, [facility] [address] [facility] [id number] [address] [place] [address] Jun, [facility] [address] [facility] [id number] [address] [place] [address] Jun, [facility] [address] [facility] [id number] [address] [place] [address] Jun, [facility] [address] [facility] [id number] [address] [place] [address] May, Type 1 diabetes mellitus wit hout complication E10.9 [facility] [address] [facility] [id number] [address] [place] [address] May, Type 1 diabetes mellitus wit hout complication E10.9 ; Encounter for immunization Z23 and Mood disorder F39 [facility] [address] [id number] [address] [place] [address] December, [facility] [address] [id number] [address] [place] [address] Nov, [facility] [address] [id number] [address] [place] [address] Nov, Uncontrolled type 1 diabetes mellitus without complication E10.9 [place] [address] [facility] [id number] [address] [place] [address] Nov, Impingement syndrome, should er, right M75.41 and Adhesive capsulitis of right shoulder M75.01 [place] [address] [facility] [id number] [address] [place] [address] Nov, Uncontrolled type 1 diabetes mellitus without complication E10.9 [place] [address] [facility] [id number] [address] [place] [address] Oct, Uncontrolled type 1 diabetes mellitus without complication E10.9 ; Other chronic pain G89.29 ; Pain in right shoulder M25.511 and Schizoaffective disorder, depressive type F25.1 [place] [address] [facility] [id number] [address] [place] [address] May, Mood disorder F39 and Contro lled diabetes mellitus type 1 without complications E10.9 [place] [address] [facility] [id number] [address] [place] [address] May, [facility] [address] [facility] [id number] [address] [place] [address] May, [place] [address] [id number] [address] [place] [address] Apr, Mood disorder F39 ; 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 and Type 1 diabetes mellitus with hyperglycemia E10.65 [facility] [address] [id number] [address] [place] [address] Apr, Mood disorder F39 [place] [address] [facility] [id number] [address] [place] [address] Mar, [facility] [address] [facility] [id number] [address] [place] [address] Feb, [facility] [address] [place] [id number] [address] [place] [address] Jan, [facility] [address] [place] [id number] [place] [address] Jan, [facility] [address] [place] [id number] [place] [address] Jan, [facility] [address] [place] [id number] [address] [place] [address] December, [facility] [address] [place] [id number] [place] [address] December, 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 and Controlled type 1 diabetes mellitus with diabetic neuropathy, with long-term current use of insulin E10.40 [facility] [address] [place] [id number] [address] [place] [address] December, Schizo-affective schizophren ia F25.0 [facility] [address] [place] [id number] [address] [place] [address] Nov, [facility] [address] [place] [id number] [place] [address] Nov, Anxiety disorder, unspecifie d F41.9 and Schizo-affective schizophrenia F25.0 [facility] [address] [place] [id number] [address] [place] [address] Nov, Schizo-affective schizophren ia F25.0 [facility] [address] [place] [id number] [address] [place] [address] Oct, [facility] [address] [place] [id number] [address] [place] [address] Sep, [facility] [address] [place] [id number] [address] [place] [address] Sep, [facility] [address] [facility] [id number] [address] [place] [address] Sep, [facility] [address] [place] [id number] [place] [address] Aug, [facility] [address] [place] [id number] [address] [place] [address] Aug, [facility] [address] [place] [id number] [address] [place] [address] Jul, [facility] [address] [place] [id number] [address] [place] [address] Jul, Diabetes type 1, controlled E10.9 [facility] [address] [place] [id number] [address] [place] [address] Jun, Diabetes mellitus without me ntion of complication, type II or unspecified type, uncontrolled 250.02 [facility] [address] [address] 09 Jun, 2015 Diabetes type 1, controlled E10.9 [facility] [address] [place] [id number] [address] [place] [address] May, Diabetes mellitus without me ntion of complication, type II or unspecified type, uncontrolled 250.02 [facility] [address] [place] [id number] [address] [place] [address] 12 May, 2015 Anxiety 300.00 [facility] [address] [place] [id number] [address] [place] [address] 09 May, 2015 Diabetes type 1, controlled E10.9 ; Schizo-affective schizophrenia F25.0 ; Mood disorder F39 and Bipolar 1 disorder F31.9 [facility] [address] [place] [id number] [address] [place] [address] May, [facility] [address] [place] [id number] [address] [place] [address] May, Anxiety F41.9 and Depression F32.9 [facility] [address] [address] Apr, Diabetes mellitus without me ntion of complication, type II or unspecified type, uncontrolled 250.02 [facility] [address] [address] Apr, Anxiety 300.00 and Diabetes mellitus without mention of complication, type II or unspecified type, uncontrolled 250.02 [facility] [address] [address] Apr, [facility] [address] [address] Apr, Anxiety 300.00 and Depressio n 311 [facility] [address] [address] Apr, Major depression, recurrent 296.30 ; Anxiety, generalized 300.02 and No condition on [place] II V71.09 [facility] [address] [address] Apr, [facility] [address] [address] Mar, Diabetes mellitus without me ntion of complication, type II or unspecified type, uncontrolled 250.02 and Anxiety 300.00 [facility] [address] [address] Mar, [facility] [address] [address] Feb, [facility] [address] [address] Feb, [facility] [address] [address] Feb, [facility] [address] [address] Jan, [facility] [address] [address] Jan, [facility] [address] [id number] [address] [place] [address] Jan, [facility] [address] [id number] [address] [place] [address] Jan, [facility] [address] [id number] [address] [place] [address] December, [facility] [address] [id number] [address] [place] [id number] December, Dental examination V72.2 [facility] [address] [id number] [address] [place] [address] December, Tooth pain 525.9 [facility] [address] [id number] [address] [place] [address] December, [facility] [address] [id number] [address] [place] [address] Nov, [facility] [address] [id number] [address] [place] [address] Nov, [facility] [address] [id number] [address] [place] [address] Oct, [facility] [address] [id number] [address] [place] [address] Oct, [facility] [address] [id number] [address] [place] [address] Sep, [facility] [address] [id number] [address] [place] [address] Sep, [facility] [address] [id number] [address] [place] [address] Sep, [facility] [address] [id number] [address] [place] [address] Sep, [facility] [address] [id number] [address] [place] [address] Aug, [facility] [address] [id number] [address] [place] [address], [place] [address] Aug, [facility] [address] [id number] [address] [place] [address], [place] [address] Aug, [facility] [address] [id number] [address] [place] [address], [place] [address] Aug, [facility] [address] [id number] [address] [place] [address], [place] [address] Jul, [facility] [address] [id number] [address] [place] [address], [place] [address] Jul, [facility] [address] [id number] [address] [place] [address], [place] [address] Jun, [facility] [address] [id number] [address] [place] [address], [place] [address] Jun, [facility] [address] [id number] [address] [place] [address], [place] [address] May, [facility] [address] [id number] [address] [place] [address], [place] [address] May, [facility] [address] [id number] [address] [place] [address], [place] [address] May, [facility] [address] [id number] [address] [place] [address], [place] [address] May, [facility] [address] [id number] [address] [place] [address], [place] [address] May, [facility] [address] [id number] [address] [place] [address], [place] [address] May, [facility] [address] [id number] [address] [place] [address], [place] [address] Apr, [facility] [address] [id number] [address] [place] [address], [place] [address] Apr, [facility] [address] [id number] [address] [place] [address], [place] [address] Apr, [facility] [address] [id number] [facility] [place] [address] Apr, [facility] [address] [id number] [address] [place] [address], [place] [address] Apr, [facility] [address] [id number] [address] [place] [address], [place] [address] Apr, [facility] [address] [id number] [address] [place] [address], [place] [address] Mar, [facility] [address] [id number] [address] [place] [address], [place] [address] Mar, [facility] [address] [id number] [address] [place] [address], [place] [address] Mar, [facility] [address] [id number] [address] [place] [address], [place] [address] Mar, [facility] [address] [id number] [address] [place] [address], [place] [address] Feb, [facility] [address] [id number] [address] [place] [address], [place] [address] Feb, [facility] [address] [id number] [address] [place] [address], [place] [address] Feb, [facility] [address] [id number] [address] [place] [address], [place] [address] Feb, [facility] [address] [id number] [address] [place] [address], [place] [address] Jan, [facility] [address] [id number] [address] [place] [address], [place] [address] Jan, [facility] [address] [id number] [address] [place] [address], [place] [address] Jan, [facility] [address] [id number] [address] [place] [address], [place] [address] Jan, [facility] [address] [id number] [facility] [place] [address] Jan, [facility] [address] [id number] [address] [place] [address], [place] [address] Jan, [facility] [address] [id number] [facility] [place] [address] Jan, [facility] [address] [id number] [address] [place] [address], [place] [address] Jan, [facility] [address] [id number] [address] [place] [address], [place] [address] Jan, [facility] [address] [id number] [address] [place] [address], [place] [address] Jan, [facility] [address] [id number] [address] [place] [address], [place] [address] December, [facility] [address] [id number] [address] [place] [address], [place] [address] December, [facility] [address] [id number] [address] [place] [address], [place] [address] December, [facility] [address] [id number] [address] [place] [address], [place] [address] December, [facility] [address] [id number] [address] [place] [address], [place] [address] December, [facility] [address] [id number] [address] [place] [address], [place] [address] Nov, [facility] [address] [id number] [address] [place] [address], [place] [address] Nov, [facility] [address] [id number] [address] [place] [address], [place] [address] Nov, [facility] [address] [id number] [address] [place] [address], [place] [address] Oct, [facility] [address] [id number] [address] [place] [address], [place] [address] Oct, [facility] [address] [id number] [address] [place] [address], [place] [address] Oct, [facility] [address] [id number] [address] [place] [address], [place] [address] Oct, [facility] [address] [id number] [address] [place] [address], [place] [address] Oct, [facility] [address] [id number] [address] [place] [address], [place] [address] Oct, [facility] [address] [id number] [address] [place] [address], [place] [address] Oct, [facility] [address] [id number] [address] [place] [address], [place] [address] Oct, [facility] [address] [id number] [address] [place] [address], [place] [address] Oct, [facility] [address] [id number] [address] [place] [address], [place] [address] Sep, [facility] [address] [id number] [address] [place] [address], [place] [address] Sep, [facility] [address] [id number] [address] [place] [address], [place] [address] Aug, [facility] [address] [id number] [address] [place] [address], [place] [address] Aug, [facility] [address] [id number] [address] [place] [address], [place] [address] Aug, [facility] [address] [id number] [address] [place] [address], [place] [address] Aug, [facility] [address] [id number] [address] [place] [address], [place] [address] Jul, [facility] [address] [id number] [address] [place] [address], [place] [address] Jul, [facility] [address] [id number] [address] [place] [address], [place] [address] Jul, [facility] [address] [id number] [address] [place] [address], [place] [address] Jul, [facility] [address] [id number] [address] [place] [address], [place] [address] Jun, [facility] [address] [id number] [address] [place] [address], [place] [address] Jun, [facility] [address] [id number] [address] [place] [address], [place] [address] Jun, [facility] [address] [id number] [address] [place] [address], [place] [address] Jun, [facility] [address] [id number] [address] [place] [address], [place] [address] May, [facility] [address] [id number] [address] [place] [address], [place] [address] May, [facility] [address] [id number] [address] [place] [address], [place] [address] May, [facility] [address] [id number] [address] [place] [address], [place] [address] May, [facility] [address] [id number] [address] [place] [address], [place] [address] May, [facility] [address] [id number] [address] [place] [address], [place] [address] May, [facility] [address] [id number] [address] [place] [address], [place] [address] Apr, [facility] [address] [id number] [address] [place] [address], [place] [address] Mar, [facility] [address] [id number] [address] [place] [address], [place] [address] Mar, [facility] [address] [id number] [address] [place] [address], [place] [address] Mar, [facility] [address] [id number] [address] [place] [address], [place] [address] Feb, [facility] [address] [id number] [address] [place] [address], [place] [address] Feb, [facility] [address] [id number] [address] [place] [address], [place] [address] Feb, [facility] [address] [id number] [address] [place] [address], [place] [address] Jan, [facility] [address] [id number] [address] [place] [address], [place] [address] Jan, [facility] [address] [id number] [address] [place] [address], [place] [address] December, [facility] [address] [id number] [address] [place] [address], [place] [address] December, [facility] [address] [id number] [address] [place] [address], [place] [address] December, [facility] [address] [id number] [address] [place] [address], [place] [address] Nov, [facility] [address] [id number] [address] [place] [address], [place] [address] 24 Nov, 2012 [facility] [address] [id number] [address] [place] [address], [place] [address] Nov, [facility] [address] [id number] [address] [place] [address], [place] [address] 2012 [facility] [address] [id number] [address] [place] [address], [place] [address] 15 Nov, 2012 [facility] [address] [id number] [address] [place] [address], [place] [address] 05 Nov, 2012 [facility] [address] [id number] [address] [place] [address], [place] [address] 25 Oct, 2012 [facility] [address] [id number] [address] [place] [address], [place] [address] Oct, [facility] [address] [id number] [address] [place] [address], [place] [address] Oct, [facility] [address] [id number] [address] [place] [address] Oct, [facility] [address] [id number] [address] [place] [address] Sep, [facility] [address] [id number] [address] [place] [address] Sep, [facility] [address] [id number] [address] [place] [address], [place] [address] Sep, [facility] [address] [id number] [address] [place] [address] Sep, [facility] [address] [id number] [address] [place] [address] Sep, [facility] [address] [id number] [address] [place] [address] Aug, [facility] [address] [id number] [address] [place] [address] Aug, [facility] [address] [id number] [address] [place] [phone] Aug, [facility] [address] [id number] [address] [place] [address] Aug, [facility] [address] [id number] [address] [place] [address] Aug, [facility] [address] [id number] [address] [place] [address] Aug, [facility] [address] [id number] [address] [place] [phone] May, [facility] [address] [id number] [address] [place] [phone] May, IMMUNIZATIONS No Known Immunizations SOCIAL HISTORY [...]
--- OUTSIDE RECORDS SUMMARY | 2020-01-16 00:17 | XMS REPORT ---
Author Author Darien VILLALOBOS Organization [facility] Address [address] [place] [address] Care Team Providers Care Scorer Helper Name Role Phone CHRISTOPHER VILLALOBOS Unavailable PROBLEMS Type Condition ICD9-CM Code CHX91-CB Code Onset Dates Condition S tatus SNOMED Code Problem Diabetes type 1, controlled E10.9 Ac tive 96555099 Problem Type 2 diabetes mellitus with hyperglycemia E11.65 Active [id number] Problem Type 1 diabetes mellitus with hyperglycemia E10.65 Active [id number] Problem Uncontrolled type 1 diabetes mellitus without complication E10.9 Active 206309184 Problem Type 1 diabetes mellitus without complication E10. 9 Active 891479359 Problem Type 1 diabetes mellitus with diabetic polyneuropathy E10.42 Active 86274484 Problem Mood disorder F39 Active 824530 05 Problem Other chronic pain G89.29 Active 8 6183192 Problem Schizoaffective disorder, depressive type F25.1 Active [id number] ALLERGIES No Information ENCOUNTERS Encounter Location Date Diagnosis [facility] [address] [facility] [id number] [address] [place] [phone] Oct, [facility] [address] [facility] [id number] [address] [place] [phone] Jun, [facility] [address] [facility] [id number] [address] [place] [phone] Jun, [facility] [address] [facility] [id number] [address] [place] [phone] Jun, [facility] [address] [facility] [id number] [address] [place] [phone] May, Type 1 diabetes mellitus wit hout complication E10.9 [facility] [address] [facility] [id number] [address] [place] [address] May, Type 1 diabetes mellitus wit hout complication E10.9 ; Encounter for immunization Z23 and Mood disorder F39 [facility] [address] [id number] [address] [place] [address] December, [place] [address] [id number] [address] [place] [phone] Nov, [place] [address] [facility] [id number] [address] [place] [phone] Nov, Uncontrolled type 1 diabetes mellitus without complication E10.9 [place] [address] [facility] [id number] [address] [place] [phone] Nov, Impingement syndrome, should er, right M75.41 and Adhesive capsulitis of right shoulder M75.01 [place] [address] [facility] [id number] [address] [place] [phone] Nov, Uncontrolled type 1 diabetes mellitus without complication E10.9 [place] [address] [place] [id number] [address] [place] [phone] Oct, Uncontrolled type 1 diabetes mellitus without complication E10.9 ; Other chronic pain G89.29 ; Pain in right shoulder M25.511 and Schizoaffective disorder, depressive type F25.1 [place] [address] [facility] [id number] [address] [place] [phone] May, Mood disorder F39 and Contro lled diabetes mellitus type 1 without complications E10.9 [place] [address] [facility] [id number] [address] [place] [phone] May, [place] [address] [facility] [id number] [address] [place] [phone] May, [place] [address] [facility] [id number] [address] [place] [phone] 30 Apr, 2016 Mood disorder F39 ; 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 and Type 1 diabetes mellitus with hyperglycemia E10.65 [place] [address] [facility] [id number] [address] [place] [phone] Apr, Mood disorder F39 [place] [address] [id number] [address] [place] [phone] Mar, [facility] [address] [id number] [address] [place] [phone] Feb, [facility] [address] [id number] [address] [place] [phone] Jan, [facility] [address] [facility] [id number] [address] [place] [phone] Jan, [facility] [address] [id number] [address] [place] [phone] Jan, [facility] [address] [facility] [id number] [address] [place] [phone] December, [facility] [address] 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 [id number] [address] [place] [phone] December, Schizo-affective schizophren ia F25.0 [facility] [address] [facility] [id number] [address] [place] [phone] Nov, [facility] [address] [facility] [id number] [address] [place] [address] Nov, Anxiety disorder, unspecifie d F41.9 and Schizo-affective schizophrenia F25.0 [facility] [address] [facility] [id number] [address] [place] [phone] Nov, Schizo-affective schizophren ia F25.0 [facility] [address] [facility] [id number] [address] [place] [phone] Oct, [facility] [address] [facility] [id number] [address] [place] [phone] Sep, [facility] [address] [place] [id number] [address] [place] [phone] Sep, [facility] [address] [place] [id number] [place] [address] Sep, [facility] [address] [place] [id number] [address] [place] [phone] Aug, [facility] [address] [id number] Aug, [facility] [address] [place] [id number] [place] [address] Jul, [place] [address] [address] Jul, Diabetes type 1, controlled E10.9 [place] [address] [address] Jun, Diabetes mellitus without me ntion of complication, type II or unspecified type, uncontrolled 250.02 [place] [address] [id number] 09 Jun, 2015 Diabetes type 1, controlled E10.9 [place] [address] [address] May, Diabetes mellitus without me ntion of complication, type II or unspecified type, uncontrolled 250.02 [place] [address] [address] May, Anxiety 300.00 [facility] [address] [id number] 09 May, 2015 Diabetes type 1, controlled E10.9 ; Schizo-affective schizophrenia F25.0 ; Mood disorder F39 and Bipolar 1 disorder F31.9 [place] [address] [phone] May, [facility] [address] [address] May, Anxiety F41.9 and Depression F32.9 [facility] [address] [address] Apr, Diabetes mellitus without me ntion of complication, type II or unspecified type, uncontrolled 250.02 [facility] [address] [place] [id number] [place] [address] Apr, Anxiety 300.00 and Diabetes mellitus without mention of complication, type II or unspecified type, uncontrolled 250.02 [facility] [address] [address] Apr, [facility] [address] [address] Apr, Anxiety 300.00 and Depressio n 311 [facility] [address] [address] Apr, Major depression, recurrent 296.30 ; Anxiety, generalized 300.02 and No condition on [place] II V71.09 [facility] [address] [address] Apr, [facility] [address] [address] Mar, Diabetes mellitus without me ntion of complication, type II or unspecified type, uncontrolled 250.02 and Anxiety 300.00 [facility] [address] [address] Mar, [facility] [address] [address] Feb, [facility] [address] [address] Feb, [facility] [address] [address] Feb, [facility] [address] [address] Jan, [facility] [address] [id number] [address] [place] [phone] Jan, [facility] [address] [id number] [address] [place] [phone] Jan, [facility] [address] [id number] [address] [place] [phone] Jan, [facility] [address] [id number] [address] [place] [phone] December, [facility] [address] [id number] [address] [place] [id number] December, Dental examination V72.2 [facility] [address] [id number] [address] [place] [phone] December, Tooth pain 525.9 [facility] [address] [id number] [address] [place] [phone] December, [facility] [address] [id number] [address] [place] [phone] Nov, [facility] [address] [id number] [address] [place] [phone] Nov, [facility] [address] [id number] [address] [place] [phone] Oct, [facility] [address] [id number] [address] [place] [phone] Oct, [facility] [address] [id number] [address] [place] [phone] Sep, [facility] [address] [id number] [address] [place] [phone] Sep, [facility] [address] [id number] [address] [place] [phone] Sep, [facility] [address] [id number] [address] [place] [phone] Sep, [facility] [address] [id number] [address] [place] [address], [place] [address] Aug, [facility] [address] [id number] [address] [place] [address], [place] [address] Aug, [facility] [address] [id number] [address] [place] [address], [place] [address] Aug, [facility] [address] [id number] [address] [place] [address], [place] [address] Aug, [facility] [address] [id number] [address] [place] [address], [place] [address] Jul, [facility] [address] [id number] [address] [place] [address], [place] [address] Jul, [facility] [address] [id number] [address] [place] [address], [place] [address] Jun, [facility] [address] [id number] [address] [place] [address], [place] [address] Jun, [facility] [address] [id number] [address] [place] [address], [place] [address] May, [facility] [address] [id number] [address] [place] [address], [place] [address] May, [facility] [address] [id number] [address] [place] [address], [place] [address] May, [facility] [address] [id number] [address] [place] [address], [place] [address] May, [facility] [address] [id number] [address] [place] [address], [place] [address] May, [facility] [address] [id number] [address] [place] [address], [place] [address] May, [facility] [address] [id number] [address] [place] [address], [place] [address] Apr, [facility] [address] [id number] [address] [place] [address], [place] [address] Apr, [facility] [address] [id number] [facility] [place] [address] Apr, [facility] [address] [id number] [address] [place] [address], [place] [address] Apr, [facility] [address] [id number] [address] [place] [address], [place] [address] Apr, [facility] [address] [id number] [address] [place] [address], [place] [address] Apr, [facility] [address] [id number] [address] [place] [address], [place] [address] Mar, [facility] [address] [id number] [address] [place] [address], [place] [address] Mar, [facility] [address] [id number] [address] [place] [address], [place] [address] Mar, [facility] [address] [id number] [address] [place] [address], [place] [address] Mar, [facility] [address] [id number] [address] [place] [address], [place] [address] Feb, [facility] [address] [id number] [address] [place] [address], [place] [address] Feb, [facility] [address] [id number] [address] [place] [address], [place] [address] Feb, [facility] [address] [id number] [address] [place] [address], [place] [address] Feb, [facility] [address] [id number] [address] [place] [address], [place] [address] Jan, [facility] [address] [id number] [address] [place] [address], [place] [address] Jan, [facility] [address] [id number] [address] [place] [address], [place] [address] 16 Jan, 2014 [facility] [address] [id number] [address] [place] [address], [place] [address] Jan, [facility] [address] [id number] [facility] [place] [address] Jan, [facility] [address] [id number] [address] [place] [address], [place] [address] Jan, [facility] [address] [id number] [address] [place] [address], [place] [address] Jan, [facility] [address] [id number] [address] [place] [address], [place] [address] Jan, [facility] [address] [id number] [address] [place] [address], [place] [address] Jan, [facility] [address] [id number] [address] [place] [address], [place] [address] Jan, [facility] [address] [id number] [address] [place] [address], [place] [address] December, [facility] [address] [id number] [address] [place] [address], [place] [address] December, [facility] [address] [id number] [address] [place] [address], [place] [address] December, [facility] [address] [id number] [address] [place] [address], [place] [address] December, [facility] [address] [id number] [address] [place] [address], [place] [address] December, [facility] [address] [id number] [address] [place] [address], [place] [address] Nov, [facility] [address] [id number] [address] [place] [address], [place] [address] Nov, [facility] [address] [id number] [address] [place] [address], [place] [address] Nov, [facility] [address] [id number] [address] [place] [address], [place] [address] Oct, [facility] [address] [id number] [facility] [place] [address] 29 Oct, 2013 [facility] [address] [id number] [address] [place] [address], [place] [address] 29 Oct, 2013 [facility] [address] [id number] [facility] [place] [address] Oct, [facility] [address] [id number] [address] [place] [address], [place] [address] Oct, [facility] [address] [id number] [address] [place] [address], [place] [address] Oct, [facility] [address] [id number] [address] [place] [address], [place] [address] Oct, [facility] [address] [id number] [address] [place] [address], [place] [address] Oct, [facility] [address] [id number] [address] [place] [address], [place] [address] Oct, [facility] [address] [id number] [address] [place] [address], [place] [address] Sep, [facility] [address] [id number] [address] [place] [address], [place] [address] Sep, [facility] [address] [id number] [address] [place] [address], [place] [address] Aug, [facility] [address] [id number] [address] [place] [address], [place] [address] Aug, [facility] [address] [id number] [address] [place] [address], [place] [address] Aug, [facility] [address] [id number] [address] [place] [address], [place] [address] Aug, [facility] [address] [id number] [address] [place] [address], [place] [address] Jul, [facility] [address] [id number] [address] [place] [address], [place] [address] Jul, [facility] [address] [id number] [address] [place] [address], [place] [address] Jul, [facility] [address] [id number] [address] [place] [address], [place] [address] Jul, [facility] [address] [id number] [address] [place] [address], [place] [address] Jun, [facility] [address] [id number] [address] [place] [address], [place] [address] Jun, [facility] [address] [id number] [address] [place] [address], [place] [address] Jun, [facility] [address] [id number] [address] [place] [address], [place] [address] Jun, [facility] [address] [id number] [address] [place] [address], [place] [address] May, [facility] [address] [id number] [address] [place] [address], [place] [address] May, [facility] [address] [id number] [address] [place] [address], [place] [address] May, [facility] [address] [id number] [address] [place] [address] May, [facility] [address] [id number] [address] [place] [address] May, [facility] [address] [id number] [address] [place] [address] May, [facility] [address] [id number] [address] [place] [address], [place] [address] Apr, [facility] [address] [id number] [address] [place] [address], [place] [address] Mar, [facility] [address] [id number] [address] [place] [address], [place] [address] Mar, [facility] [address] [id number] [address] [place] [address], [place] [address] Mar, [facility] [place] [address] [id number] [address] [place] [address], [place] [address] Feb, [facility] [address] [id number] [address] [place] [address], [place] [address] Feb, [facility] [address] [id number] [address] [place] [address], [place] [address] Feb, [facility] [address] [id number] [address] [place] [address], [place] [address] Jan, [facility] [address] [id number] [address] [place] [address], [place] [address] Jan, [facility] [place] [address] [id number] [address] [place] [address], [place] [address] December, [facility] [place] [address] [id number] [address] [place] [address], [place] [address] December, [facility] [place] [address] [id number] [address] [place] [address], [place] [address] December, [facility] [place] [address] [id number] [address] [place] [address], [place] [address] Nov, [facility] [address] [id number] [address] [place] [address], [place] [address] Nov, [facility] [place] [address] [id number] [address] [place] [address], [place] [address] Nov, [facility] [place] [address] [id number] [address] [place] [address], [place] [address] 2012 [facility] [address] [id number] [address] [place] [address], [place] [address] 15 Nov, 2012 [facility] [address] [id number] [address] [place] [address], [place] [address] Nov, [facility] [place] [address] [id number] [address] [place] [address], [place] [address] Oct, [facility] [address] [id number] [address] [place] [address], [place] [address] 14 Oct, 2012 [facility] [address] [id number] [address] [place] [address], [place] [address] Oct, [facility] [address] [id number] [address] [place] [address], [place] [address] 06 Oct, 2012 [facility] [address] [id number] [address] [place] [address], [place] [address] 28 Sep, 2012 [facility] [address] [id number] [address] [place] [address], [place] [address] Sep, [facility] [address] [id number] [address] [place] [address], [place] [address] Sep, [facility] [address] [id number] [address] [place] [address], [place] [address] Sep, [facility] [address] [id number] [address] [place] [address], [place] [address] Sep, [facility] [address] [id number] [address] [place] [address], [place] [address] Aug, [facility] [address] [id number] [address] [place] [address], [place] [address] Aug, [facility] [address] [id number] [address] [place] [address], [place] [address] Aug, [facility] [address] [id number] [address] [place] [address], [place] [address] Aug, [facility] [address] [id number] [address] [place] [address], [place] [address] Aug, [facility] [address] [id number] [address] [place] [address], [place] [address] Aug, [facility] [address] [id number] [address] [place] [address], [place] [address] 15 May, 2011 [facility] [address] [id number] [address] [place] [address] May, IMMUNIZATIONS No Known Immunizations SOCIAL HISTORY [...]
--- OUTSIDE RECORDS SUMMARY | 2020-01-16 00:17 | XMS REPORT ---
Author Author Darien VILLALOBOS Organization [facility] Address [address] [place] [address] Care Team Providers Care Clay Washer Name Role Phone CHRISTOPHER VILLALOBOS Unavailable PROBLEMS Type Condition ICD9-CM Code MNS50-HE Code Onset Dates Condition S tatus SNOMED Code Problem Diabetes type 1, controlled E10.9 Ac tive 03305942 Problem Type 2 diabetes mellitus with hyperglycemia E11.65 Active [id number] Problem Type 1 diabetes mellitus with hyperglycemia E10.65 Active [id number] Problem Uncontrolled type 1 diabetes mellitus without complication E10.9 Active 374543680 Problem Type 1 diabetes mellitus without complication E10. 9 Active 823292930 Problem Type 1 diabetes mellitus with diabetic polyneuropathy E10.42 Active 23332958 Problem Mood disorder F39 Active 532941 05 Problem Other chronic pain G89.29 Active 8 6245321 Problem Schizoaffective disorder, depressive type F25.1 Active [id number] ALLERGIES No Information ENCOUNTERS Encounter Location Date Diagnosis [facility] [address] [facility] [id number] [address] [place] [address] Oct, [facility] [address] [facility] [id number] [address] [place] [address] Jun, [facility] [address] [facility] [id number] [address] [place] [address] Jun, [facility] [address] [facility] [id number] [address] [place] [address] Jun, [facility] [address] [facility] [id number] [address] [place] [address] May, Type 1 diabetes mellitus wit hout complication E10.9 [facility] [address] [facility] [id number] [address] [place] [address] May, Type 1 diabetes mellitus wit hout complication E10.9 ; Encounter for immunization Z23 and Mood disorder F39 [facility] [address] [id number] [address] [place] [address] December, [place] [address] [id number] [address] [place] [address] Nov, [place] [address] [facility] [id number] [address] [place] [address] Nov, Uncontrolled type 1 diabetes mellitus without complication E10.9 [place] [address] [facility] [id number] [address] [place] [address] Nov, Impingement syndrome, should er, right M75.41 and Adhesive capsulitis of right shoulder M75.01 [place] [address] [facility] [id number] [address] [place] [address] Nov, Uncontrolled type 1 diabetes mellitus without complication E10.9 [place] [address] [place] [id number] [address] [place] [address] Oct, Uncontrolled type 1 diabetes mellitus without complication E10.9 ; Other chronic pain G89.29 ; Pain in right shoulder M25.511 and Schizoaffective disorder, depressive type F25.1 [place] [address] [facility] [id number] [address] [place] [address] May, Mood disorder F39 and Contro lled diabetes mellitus type 1 without complications E10.9 [place] [address] [facility] [id number] [address] [place] [address] May, [place] [address] [facility] [id number] [address] [place] [address] May, [place] [address] [facility] [id number] [address] [place] [address] 30 Apr, 2016 Mood disorder F39 ; 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 and Type 1 diabetes mellitus with hyperglycemia E10.65 [place] [address] [facility] [id number] [address] [place] [address] Apr, Mood disorder F39 [place] [address] [id number] [address] [place] [address] Mar, [facility] [address] [id number] [address] [place] [address] Feb, [facility] [address] [id number] [address] [place] [address] Jan, [facility] [address] [facility] [id number] [address] [place] [address] Jan, [facility] [address] [id number] [address] [place] [address] Jan, [facility] [address] [facility] [id number] [address] [place] [address] December, [facility] [address] [facility] [id number] [address] [place] [address] December, 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 and Controlled type 1 diabetes mellitus with diabetic neuropathy, with long-term current use of insulin E10.40 [facility] [address] [facility] [id number] [address] [place] [address] December, Schizo-affective schizophren ia F25.0 [facility] [address] [facility] [id number] [address] [place] [address] Nov, [facility] [address] [facility] [id number] [address] [place] [address] Nov, Anxiety disorder, unspecifie d F41.9 and Schizo-affective schizophrenia F25.0 [facility] [address] [facility] [id number] [address] [place] [address] Nov, Schizo-affective schizophren ia F25.0 [facility] [address] [facility] [id number] [address] [place] [address] Oct, [facility] [address] [facility] [id number] [address] [place] [address] Sep, [facility] [address] [place] [id number] [address] [place] [address] Sep, [facility] [address] [place] [id number] [place] [address] Sep, [facility] [address] [place] [id number] [address] [place] [address] Aug, [facility] [address] [address] Aug, [facility] [address] [place] [id number] [place] [address] Jul, [place] [address] [address] Jul, Diabetes type 1, controlled E10.9 [place] [address] [address] Jun, Diabetes mellitus without me ntion of complication, type II or unspecified type, uncontrolled 250.02 [place] [address] [address] 09 Jun, 2015 Diabetes type 1, controlled E10.9 [place] [address] [address] May, Diabetes mellitus without me ntion of complication, type II or unspecified type, uncontrolled 250.02 [place] [address] [address] May, Anxiety 300.00 [facility] [address] [address] 09 May, 2015 Diabetes type 1, controlled E10.9 ; Schizo-affective schizophrenia F25.0 ; Mood disorder F39 and Bipolar 1 disorder F31.9 [place] [address] [address] May, [facility] [address] [address] May, Anxiety F41.9 and Depression F32.9 [facility] [address] [address] Apr, Diabetes mellitus without me ntion of complication, type II or unspecified type, uncontrolled 250.02 [facility] [address] [place] [id number] [place] [address] Apr, Anxiety 300.00 and Diabetes mellitus without mention of complication, type II or unspecified type, uncontrolled 250.02 [facility] [address] [address] Apr, [facility] [address] [address] Apr, Anxiety 300.00 and Depressio n 311 [facility] [address] [address] Apr, Major depression, recurrent 296.30 ; Anxiety, generalized 300.02 and No condition on [place] II V71.09 [facility] [address] [address] Apr, [facility] [address] [address] Mar, Diabetes mellitus without me ntion of complication, type II or unspecified type, uncontrolled 250.02 and Anxiety 300.00 [facility] [address] [address] Mar, [facility] [address] [address] Feb, [facility] [address] [address] Feb, [facility] [address] [address] Feb, [facility] [address] [address] Jan, [facility] [address] [id number] [address] [place] [address] Jan, [facility] [address] [id number] [address] [place] [address] Jan, [facility] [address] [id number] [address] [place] [address] Jan, [facility] [address] [id number] [address] [place] [address] December, [facility] [address] [id number] [address] [place] [id number] December, Dental examination V72.2 [facility] [address] [id number] [address] [place] [address] December, Tooth pain 525.9 [facility] [address] [id number] [address] [place] [address] December, [facility] [address] [id number] [address] [place] [address] Nov, [facility] [address] [id number] [address] [place] [address] Nov, [facility] [address] [id number] [address] [place] [address] Oct, [facility] [address] [id number] [address] [place] [address] Oct, [facility] [address] [id number] [address] [place] [address] Sep, [facility] [address] [id number] [address] [place] [address] Sep, [facility] [address] [id number] [address] [place] [address] Sep, [facility] [address] [id number] [address] [place] [address] Sep, [facility] [address] [id number] [address] [place] [address], [place] [address] Aug, [facility] [address] [id number] [address] [place] [address], [place] [address] Aug, [facility] [address] [id number] [address] [place] [address], [place] [address] Aug, [facility] [address] [id number] [address] [place] [address], [place] [address] Aug, [facility] [address] [id number] [address] [place] [address], [place] [address] Jul, [facility] [address] [id number] [address] [place] [address], [place] [address] Jul, [facility] [address] [id number] [address] [place] [address], [place] [address] Jun, [facility] [address] [id number] [address] [place] [address], [place] [address] Jun, [facility] [address] [id number] [address] [place] [address], [place] [address] May, [facility] [address] [id number] [address] [place] [address], [place] [address] May, [facility] [address] [id number] [address] [place] [address], [place] [address] May, [facility] [address] [id number] [address] [place] [address], [place] [address] May, [facility] [address] [id number] [address] [place] [address], [place] [address] May, [facility] [address] [id number] [address] [place] [address], [place] [address] May, [facility] [address] [id number] [address] [place] [address], [place] [address] Apr, [facility] [address] [id number] [address] [place] [address], [place] [address] Apr, [facility] [address] [id number] [facility] [place] [address] Apr, [facility] [address] [id number] [address] [place] [address], [place] [address] Apr, [facility] [address] [id number] [address] [place] [address], [place] [address] Apr, [facility] [address] [id number] [address] [place] [address], [place] [address] Apr, [facility] [address] [id number] [address] [place] [address], [place] [address] Mar, [facility] [address] [id number] [address] [place] [address], [place] [address] Mar, [facility] [address] [id number] [address] [place] [address], [place] [address] Mar, [facility] [address] [id number] [address] [place] [address], [place] [address] Mar, [facility] [address] [id number] [address] [place] [address], [place] [address] Feb, [facility] [address] [id number] [address] [place] [address], [place] [address] Feb, [facility] [address] [id number] [address] [place] [address], [place] [address] Feb, [facility] [address] [id number] [address] [place] [address], [place] [address] Feb, [facility] [address] [id number] [address] [place] [address], [place] [address] Jan, [facility] [address] [id number] [address] [place] [address], [place] [address] Jan, [facility] [address] [id number] [address] [place] [address], [place] [address] 16 Jan, 2014 [facility] [address] [id number] [address] [place] [address], [place] [address] Jan, [facility] [address] [id number] [facility] [place] [address] Jan, [facility] [address] [id number] [address] [place] [address], [place] [address] Jan, [facility] [address] [id number] [address] [place] [address], [place] [address] Jan, [facility] [address] [id number] [address] [place] [address], [place] [address] Jan, [facility] [address] [id number] [address] [place] [address], [place] [address] Jan, [facility] [address] [id number] [address] [place] [address], [place] [address] Jan, [facility] [address] [id number] [address] [place] [address], [place] [address] December, [facility] [address] [id number] [address] [place] [address], [place] [address] December, [facility] [address] [id number] [address] [place] [address], [place] [address] December, [facility] [address] [id number] [address] [place] [address], [place] [address] December, [facility] [address] [id number] [address] [place] [address], [place] [address] December, [facility] [address] [id number] [address] [place] [address], [place] [address] Nov, [facility] [address] [id number] [address] [place] [address], [place] [address] Nov, [facility] [address] [id number] [address] [place] [address], [place] [address] Nov, [facility] [address] [id number] [address] [place] [address], [place] [address] Oct, [facility] [address] [id number] [facility] [place] [address] 29 Oct, 2013 [facility] [address] [id number] [address] [place] [address], [place] [address] 29 Oct, 2013 [facility] [address] [id number] [facility] [place] [address] Oct, [facility] [address] [id number] [address] [place] [address], [place] [address] Oct, [facility] [address] [id number] [address] [place] [address], [place] [address] Oct, [facility] [address] [id number] [address] [place] [address], [place] [address] Oct, [facility] [address] [id number] [address] [place] [address], [place] [address] Oct, [facility] [address] [id number] [address] [place] [address], [place] [address] Oct, [facility] [address] [id number] [address] [place] [address], [place] [address] Sep, [facility] [address] [id number] [address] [place] [address], [place] [address] Sep, [facility] [address] [id number] [address] [place] [address], [place] [address] Aug, [facility] [address] [id number] [address] [place] [address], [place] [address] Aug, [facility] [address] [id number] [address] [place] [address], [place] [address] Aug, [facility] [address] [id number] [address] [place] [address], [place] [address] Aug, [facility] [address] [id number] [address] [place] [address], [place] [address] Jul, [facility] [address] [id number] [address] [place] [address], [place] [address] Jul, [facility] [address] [id number] [address] [place] [address], [place] [address] Jul, [facility] [address] [id number] [address] [place] [address], [place] [address] Jul, [facility] [address] [id number] [address] [place] [address], [place] [address] Jun, [facility] [address] [id number] [address] [place] [address], [place] [address] Jun, [facility] [address] [id number] [address] [place] [address], [place] [address] Jun, [facility] [address] [id number] [address] [place] [address], [place] [address] Jun, [facility] [address] [id number] [address] [place] [address], [place] [address] May, [facility] [address] [id number] [address] [place] [address], [place] [address] May, [facility] [address] [id number] [address] [place] [address], [place] [address] May, [facility] [address] [id number] [address] [place] [address] May, [facility] [address] [id number] [address] [place] [address] May, [facility] [address] [id number] [address] [place] [address] May, [facility] [address] [id number] [address] [place] [address], [place] [address] Apr, [facility] [address] [id number] [address] [place] [address], [place] [address] Mar, [facility] [address] [id number] [address] [place] [address], [place] [address] Mar, [facility] [address] [id number] [address] [place] [address], [place] [address] Mar, [facility] [address] [id number] [address] [place] [address], [place] [address] Feb, [facility] [address] [id number] [address] [place] [address], [place] [address] Feb, [facility] [address] [id number] [address] [place] [address], [place] [address] Feb, [facility] [address] [id number] [address] [place] [address], [place] [address] Jan, [facility] [address] [id number] [address] [place] [address], [place] [address] Jan, [facility] [address] [id number] [address] [place] [address], [place] [address] December, [facility] [address] [id number] [address] [place] [address], [place] [address] December, [facility] [address] [id number] [address] [place] [address], [place] [address] December, [facility] [address] [id number] [address] [place] [address], [place] [address] Nov, [facility] [address] [id number] [address] [place] [address], [place] [address] Nov, [facility] [address] [id number] [address] [place] [address], [place] [address] Nov, [facility] [address] [id number] [address] [place] [address], [place] [address] 2012 [facility] [address] [id number] [address] [place] [address], [place] [address] 15 Nov, 2012 [facility] [address] [id number] [address] [place] [address], [place] [address] Nov, [facility] [address] [id number] [address] [place] [address], [place] [address] Oct, [facility] [address] [id number] [address] [place] [address], [place] [address] 14 Oct, 2012 [facility] [address] [id number] [address] [place] [address], [place] [address] Oct, [facility] [address] [id number] [address] [place] [address], [place] [address] 06 Oct, 2012 [facility] [address] [id number] [address] [place] [address], [place] [address] 28 Sep, 2012 [facility] [address] [id number] [address] [place] [address], [place] [address] Sep, [facility] [address] [id number] [address] [place] [address], [place] [address] Sep, [facility] [address] [id number] [address] [place] [address], [place] [address] Sep, [facility] [address] [id number] [address] [place] [address], [place] [address] Sep, [facility] [address] [id number] [address] [place] [address], [place] [address] Aug, [facility] [address] [id number] [address] [place] [address], [place] [address] Aug, [facility] [address] [id number] [address] [place] [address], [place] [address] Aug, [facility] [address] [id number] [address] [place] [address], [place] [address] Aug, [facility] [address] [id number] [address] [place] [address], [place] [address] Aug, [facility] [address] [id number] [address] [place] [address], [place] [address] Aug, [facility] [address] [id number] [address] [place] [address], [place] [address] 15 May, 2011 [facility] [address] [id number] [address] [place] [address] May, IMMUNIZATIONS No Known Immunizations SOCIAL HISTORY [...]
--- OUTSIDE RECORDS SUMMARY | 2020-01-16 00:17 | XMS REPORT ---
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 9 Active 298871810 Problem Type 1 diabetes mellitus with diabetic polyneuropathy E10.42 Active 03319169 Problem Mood disorder F39 Active 523766 05 Problem Other chronic pain G89.29 Active 8 5952546 Problem Schizoaffective disorder, depressive type F25.1 Active [id number] ALLERGIES No Information ENCOUNTERS Encounter Location Date Diagnosis [facility] [address] [facility] [id number] [address] [place] [id number] Oct, [facility] [address] [facility] [id number] [address] [place] [phone] Jun, [facility] [address] [facility] [id number] [address] [place] [id number] Jun, [facility] [address] [facility] [id number] [address] [place] [id number] Jun, [facility] [address] [facility] [id number] [address] [place] [id number] May, Type 1 diabetes mellitus wit hout complication E10.9 [facility] [address] [facility] [id number] [address] [place] [address] May, Type 1 diabetes mellitus wit hout complication E10.9 ; Encounter for immunization Z23 and Mood disorder F39 [facility] [address] [id number] [address] [place] [id number] December, [place] [address] [id number] [address] [place] [phone] Nov, [place] [address] [facility] [id number] [address] [place] [id number] Nov, Uncontrolled type 1 diabetes mellitus without complication E10.9 [place] [address] [facility] [id number] [address] [place] [id number] Nov, Impingement syndrome, should er, right M75.41 and Adhesive capsulitis of right shoulder M75.01 [place] [address] [facility] [id number] [address] [place] [id number] Nov, Uncontrolled type 1 diabetes mellitus without complication E10.9 [place] [address] [place] [id number] [address] [place] [id number] Oct, Uncontrolled type 1 diabetes mellitus without complication E10.9 ; Other chronic pain G89.29 ; Pain in right shoulder M25.511 and Schizoaffective disorder, depressive type F25.1 [place] [address] [facility] [id number] [address] [place] [id number] May, Mood disorder F39 and Contro lled diabetes mellitus type 1 without complications E10.9 [place] [address] [facility] [id number] [address] [place] [address] May, [place] [address] [facility] [id number] [address] [place] [address] May, [place] [address] [facility] [id number] [address] [place] [id number] 30 Apr, 2016 Mood disorder F39 ; 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 and Type 1 diabetes mellitus with hyperglycemia E10.65 [place] [address] [facility] [id number] [address] [place] [address] Apr, Mood disorder F39 [place] [id number] [id number] [address] [place] [phone] Mar, [facility] [address] [id number] [address] [place] [id number] Feb, [facility] [address] [id number] [address] [place] [id number] Jan, [facility] [address] [facility] [id number] [address] [place] [phone] Jan, [facility] [address] [id number] [address] [place] [id number] Jan, [facility] [address] [facility] [id number] [address] [place] [phone] December, [facility] [address] 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 [id number] [address] [place] [phone] December, Schizo-affective schizophren ia F25.0 [facility] [address] [facility] [id number] [address] [place] [id number] Nov, [facility] [address] [facility] [id number] [address] [place] [address] Nov, Anxiety disorder, unspecifie d F41.9 and Schizo-affective schizophrenia F25.0 [facility] [address] [facility] [id number] [address] [place] [id number] Nov, Schizo-affective schizophren ia F25.0 [facility] [address] [facility] [id number] [address] [place] [id number] Oct, [facility] [address] [facility] [id number] [address] [place] [id number] Sep, [facility] [address] [place] [id number] [address] [place] [phone] Sep, [facility] [address] [place] [id number] [place] [address] Sep, [facility] [address] [place] [id number] [address] [place] [phone] Aug, [facility] [address] [address] Aug, [facility] [address] [place] [id number] [place] [address] Jul, [place] [address] [address] Jul, Diabetes type 1, controlled E10.9 [place] [address] [address] Jun, Diabetes mellitus without me ntion of complication, type II or unspecified type, uncontrolled 250.02 [place] [address] [address] 09 Jun, 2015 Diabetes type 1, controlled E10.9 [place] [address] [address] May, Diabetes mellitus without me ntion of complication, type II or unspecified type, uncontrolled 250.02 [place] [address] [address] May, Anxiety 300.00 [facility] [address] [address] 09 May, 2015 Diabetes type 1, controlled E10.9 ; Schizo-affective schizophrenia F25.0 ; Mood disorder F39 and Bipolar 1 disorder F31.9 [place] [address] [address] May, [facility] [address] [address] May, Anxiety F41.9 and Depression F32.9 [facility] [address] [address] Apr, Diabetes mellitus without me ntion of complication, type II or unspecified type, uncontrolled 250.02 [facility] [address] [place] [id number] [place] [address] Apr, Anxiety 300.00 and Diabetes mellitus without mention of complication, type II or unspecified type, uncontrolled 250.02 [facility] [address] [address] Apr, [facility] [address] [address] Apr, Anxiety 300.00 and Depressio n 311 [facility] [address] [address] Apr, Major depression, recurrent 296.30 ; Anxiety, generalized 300.02 and No condition on [place] II V71.09 [facility] [address] [address] Apr, [facility] [address] [address] Mar, Diabetes mellitus without me ntion of complication, type II or unspecified type, uncontrolled 250.02 and Anxiety 300.00 [facility] [address] [address] Mar, [facility] [address] [address] Feb, [facility] [address] [id number] Feb, [facility] [address] [address] Feb, [facility] [address] [address] Jan, [facility] [address] [id number] [address] [place] [id number] Jan, [facility] [address] [id number] [address] [place] [id number] Jan, [facility] [address] [id number] [address] [place] [address] Jan, [facility] [address] [id number] [address] [place] [id number] December, [facility] [address] [id number] [address] [place] [id number] December, Dental examination V72.2 [facility] [address] [id number] [address] [place] [address] December, Tooth pain 525.9 [facility] [address] [id number] [address] [place] [id number] December, [facility] [address] [id number] [address] [place] [id number] Nov, [facility] [address] [id number] [address] [place] [phone] Nov, [facility] [address] [id number] [address] [place] [id number] Oct, [facility] [address] [id number] [address] [place] [id number] Oct, [facility] [address] [id number] [address] [place] [phone] Sep, [facility] [address] [id number] [address] [place] [id number] Sep, [facility] [address] [id number] [address] [place] [id number] Sep, [facility] [address] [id number] [address] [place] [id number] Sep, [facility] [address] [id number] [address] [place] [address], [place] [address] Aug, [facility] [address] [id number] [address] [place] [address], [place] [address] Aug, [facility] [address] [id number] [address] [place] [address], [place] [address] Aug, [facility] [address] [id number] [address] [place] [address], [place] [address] Aug, [facility] [address] [id number] [address] [place] [address], [place] [address] Jul, [facility] [address] [id number] [address] [place] [address], [place] [address] Jul, [facility] [address] [id number] [address] [place] [address], [place] [address] Jun, [facility] [address] [id number] [address] [place] [address], [place] [address] Jun, [facility] [address] [id number] [address] [place] [address], [place] [address] May, [facility] [address] [id number] [address] [place] [address], [place] [address] May, [facility] [address] [id number] [address] [place] [address], [place] [address] May, [facility] [address] [id number] [address] [place] [address], [place] [address] May, [facility] [address] [id number] [address] [place] [address], [place] [address] May, [facility] [address] [id number] [address] [place] [address], [place] [address] May, [facility] [address] [id number] [address] [place] [address], [place] [address] Apr, [facility] [address] [id number] [address] [place] [address], [place] [address] Apr, [facility] [address] [id number] [facility] [place] [address] Apr, [facility] [address] [id number] [address] [place] [address], [place] [address] Apr, [facility] [address] [id number] [address] [place] [address], [place] [address] Apr, [facility] [address] [id number] [address] [place] [address], [place] [address] Apr, [facility] [address] [id number] [address] [place] [address], [place] [address] Mar, [facility] [address] [id number] [address] [place] [address], [place] [address] Mar, [facility] [address] [id number] [address] [place] [address], [place] [address] Mar, [facility] [address] [id number] [address] [place] [address], [place] [address] Mar, [facility] [address] [id number] [address] [place] [address], [place] [address] Feb, [facility] [address] [id number] [address] [place] [address], [place] [address] Feb, [facility] [address] [id number] [address] [place] [address], [place] [address] Feb, [facility] [address] [id number] [address] [place] [address], [place] [address] Feb, [facility] [address] [id number] [address] [place] [address], [place] [address] Jan, [facility] [address] [id number] [address] [place] [address], [place] [address] Jan, [facility] [address] [id number] [address] [place] [address], [place] [address] 16 Jan, 2014 [facility] [address] [id number] [address] [place] [address], [place] [address] Jan, [facility] [address] [id number] [facility] [place] [address] Jan, [facility] [address] [id number] [address] [place] [address], [place] [address] Jan, [facility] [address] [id number] [address] [place] [address], [place] [address] Jan, [facility] [address] [id number] [address] [place] [address], [place] [address] Jan, [facility] [address] [id number] [address] [place] [address], [place] [address] Jan, [facility] [address] [id number] [address] [place] [address], [place] [address] Jan, [facility] [address] [id number] [address] [place] [address], [place] [address] December, [facility] [address] [id number] [address] [place] [address], [place] [address] December, [facility] [address] [id number] [address] [place] [address], [place] [address] December, [facility] [address] [id number] [address] [place] [address], [place] [address] December, [facility] [address] [id number] [address] [place] [address], [place] [address] December, [facility] [address] [id number] [address] [place] [address], [place] [address] Nov, [facility] [address] [id number] [address] [place] [address], [place] [address] Nov, [facility] [address] [id number] [address] [place] [address], [place] [address] Nov, [facility] [address] [id number] [address] [place] [address], [place] [address] Oct, [facility] [address] [id number] [facility] [place] [address] 29 Oct, 2013 [facility] [address] [id number] [address] [place] [address], [place] [address] 29 Oct, 2013 [facility] [address] [id number] [facility] [place] [address] Oct, [facility] [address] [id number] [address] [place] [address], [place] [address] Oct, [facility] [address] [id number] [address] [place] [address], [place] [address] Oct, [facility] [address] [id number] [address] [place] [address], [place] [address] Oct, [facility] [address] [id number] [address] [place] [address], [place] [address] Oct, [facility] [address] [id number] [address] [place] [address], [place] [address] Oct, [facility] [address] [id number] [address] [place] [address], [place] [address] Sep, [facility] [address] [id number] [address] [place] [address], [place] [address] Sep, [facility] [address] [id number] [address] [place] [address], [place] [address] Aug, [facility] [address] [id number] [address] [place] [address], [place] [address] Aug, [facility] [address] [id number] [address] [place] [address], [place] [address] Aug, [facility] [address] [id number] [address] [place] [address], [place] [address] Aug, [facility] [address] [id number] [address] [place] [address], [place] [address] Jul, [facility] [address] [id number] [address] [place] [address], [place] [address] Jul, [facility] [address] [id number] [address] [place] [address], [place] [address] Jul, [facility] [address] [id number] [address] [place] [address], [place] [address] Jul, [facility] [address] [id number] [address] [place] [address], [place] [address] Jun, [facility] [address] [id number] [address] [place] [address], [place] [address] Jun, [facility] [address] [id number] [address] [place] [address], [place] [address] Jun, [facility] [address] [id number] [address] [place] [address], [place] [address] Jun, [facility] [address] [id number] [address] [place] [address], [place] [address] May, [facility] [address] [id number] [address] [place] [address], [place] [address] May, [facility] [address] [id number] [address] [place] [address], [place] [address] May, [facility] [address] [id number] [address] [place] [address] May, [facility] [address] [id number] [address] [place] [address] May, [facility] [address] [id number] [address] [place] [address] May, [facility] [address] [id number] [address] [place] [address], [place] [address] Apr, [facility] [address] [id number] [address] [place] [address], [place] [address] Mar, [facility] [address] [id number] [address] [place] [address], [place] [address] Mar, [facility] [address] [id number] [address] [place] [address], [place] [address] Mar, [facility] [address] [id number] [address] [place] [address], [place] [address] Feb, [facility] [address] [id number] [address] [place] [address], [place] [address] Feb, [facility] [address] [id number] [address] [place] [address], [place] [address] Feb, [facility] [address] [id number] [address] [place] [address], [place] [address] Jan, [facility] [address] [id number] [address] [place] [address], [place] [address] Jan, [facility] [address] [id number] [address] [place] [address], [place] [address] December, [facility] [address] [id number] [address] [place] [address], [place] [address] December, [facility] [address] [id number] [address] [place] [address], [place] [address] December, [facility] [address] [id number] [address] [place] [address], [place] [address] Nov, [facility] [address] [id number] [address] [place] [address], [place] [address] Nov, [facility] [address] [id number] [address] [place] [address], [place] [address] Nov, [facility] [address] [id number] [address] [place] [address], [place] [address] 2012 [facility] [address] [id number] [address] [place] [address], [place] [address] 15 Nov, 2012 [facility] [address] [id number] [address] [place] [address], [place] [address] Nov, [facility] [address] [id number] [address] [place] [address], [place] [address] Oct, [facility] [address] [id number] [address] [place] [address], [place] [address] 14 Oct, 2012 [facility] [address] [id number] [address] [place] [address], [place] [address] Oct, [facility] [address] [id number] [address] [place] [address], [place] [address] 06 Oct, 2012 [facility] [address] [id number] [address] [place] [address], [place] [address] 28 Sep, 2012 [facility] [address] [id number] [address] [place] [address], [place] [address] Sep, [facility] [address] [id number] [address] [place] [address], [place] [address] Sep, [facility] [address] [id number] [address] [place] [address], [place] [address] Sep, [facility] [address] [id number] [address] [place] [address], [place] [address] Sep, [facility] [address] [id number] [address] [place] [address], [place] [address] Aug, [facility] [address] [id number] [address] [place] [address], [place] [address] Aug, [facility] [address] [id number] [address] [place] [address], [place] [address] Aug, [facility] [address] [id number] [address] [place] [address], [place] [address] Aug, [facility] [address] [id number] [address] [place] [address], [place] [address] Aug, [facility] [address] [id number] [address] [place] [address], [place] [address] Aug, [facility] [address] [id number] [address] [place] [address], [place] [address] 15 May, 2011 [facility] [address] [id number] [address] [place] [id number] 15 May, 2011 IMMUNIZATIONS No Known Immunizations SOCIAL HISTORY Never Assessed REASON FOR VISIT PLAN OF CARE VITAL SIGNS MEDICATIONS Unknown Medications RESULTS No Results PROCEDURES Procedure Date Ordered Result Body Site COMPLETE CBC W/AUTO DIFF WBC May 27, 2013 RHEUMATOID FACTOR, QUANT May 27, 2013 LIPID PANEL May 27, 2013 COMPREHEN METABOLIC PANEL May 27, 2013 VENIPUNCT, ROUTINE* May 27, 2013 INSTRUCTIONS MEDICATIONS ADMINISTERED No Known Medications MEDICAL (GENERAL) HISTORY Type Description Date Medical History type I diabetes Medical History hx of MRSA infections Medical History depression Medical History anxiety Surgical History I & D-[facility]SA Hospitalization History MRSA 2004
--- OUTSIDE RECORDS SUMMARY | 2020-01-16 00:18 | XMS REPORT ---
Author Author Darien VILLALOBOS Organization [facility] Address [address] [place] [address] Care Team Providers Care Box Office Agent Name Role Phone CHRISTOPHER VILLALOBOS Unavailable PROBLEMS Type Condition ICD9-CM Code LBW41-AT Code Onset Dates Condition S tatus SNOMED Code Problem Diabetes type 1, controlled E10.9 Ac tive 09485868 Problem Type 2 diabetes mellitus with hyperglycemia E11.65 Active [id number] Problem Type 1 diabetes mellitus with hyperglycemia E10.65 Active [id number] Problem Uncontrolled type 1 diabetes mellitus without complication E10.9 Active 318262872 Problem Type 1 diabetes mellitus without complication E10. 9 Active 842156034 Problem Type 1 diabetes mellitus with diabetic polyneuropathy E10.42 Active 76653819 Problem Mood disorder F39 Active 908476 05 Problem Other chronic pain G89.29 Active 8 6015888 Problem Schizoaffective disorder, depressive type F25.1 Active [id number] ALLERGIES No Information ENCOUNTERS Encounter Location Date Diagnosis [facility] [address] [facility] [id number] [address] [place] [address] Oct, [facility] [address] [facility] [id number] [address] [place] [address] Jun, [facility] [address] [facility] [id number] [address] [place] [address] Jun, [facility] [address] [facility] [id number] [address] [place] [address] Jun, [facility] [address] [facility] [id number] [address] [place] [address] May, Type 1 diabetes mellitus wit hout complication E10.9 [facility] [address] [facility] [id number] [address] [place] [address] May, Type 1 diabetes mellitus wit hout complication E10.9 ; Encounter for immunization Z23 and Mood disorder F39 [facility] [address] [id number] [address] [place] [address] December, [place] [address] [id number] [address] [place] [address] Nov, [place] [address] [facility] [id number] [address] [place] [address] Nov, Uncontrolled type 1 diabetes mellitus without complication E10.9 [place] [address] [facility] [id number] [address] [place] [address] Nov, Impingement syndrome, should er, right M75.41 and Adhesive capsulitis of right shoulder M75.01 [place] [address] [facility] [id number] [address] [place] [address] Nov, Uncontrolled type 1 diabetes mellitus without complication E10.9 [place] [address] [place] [id number] [address] [place] [address] Oct, Uncontrolled type 1 diabetes mellitus without complication E10.9 ; Other chronic pain G89.29 ; Pain in right shoulder M25.511 and Schizoaffective disorder, depressive type F25.1 [place] [address] [facility] [id number] [address] [place] [address] May, Mood disorder F39 and Contro lled diabetes mellitus type 1 without complications E10.9 [place] [address] [facility] [id number] [address] [place] [address] May, [place] [address] [facility] [id number] [address] [place] [address] May, [place] [address] [facility] [id number] [address] [place] [address] 30 Apr, 2016 Mood disorder F39 ; 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 and Type 1 diabetes mellitus with hyperglycemia E10.65 [place] [address] [facility] [id number] [address] [place] [address] Apr, Mood disorder F39 [place] [address] [id number] [address] [place] [address] Mar, [facility] [address] [id number] [address] [place] [address] Feb, [facility] [address] [id number] [address] [place] [address] Jan, [facility] [address] [facility] [id number] [address] [place] [address] Jan, [facility] [address] [id number] [address] [place] [address] Jan, [facility] [address] [facility] [id number] [address] [place] [address] December, [facility] [address] [facility] [id number] [address] [place] [address] December, 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0 [facility] [address] [facility] [id number] [address] [place] [address] Nov, Schizo-affective schizophren ia F25.0 [facility] [address] [facility] [id number] [address] [place] [address] Oct, [facility] [address] [facility] [id number] [address] [place] [address] Sep, [facility] [address] [place] [id number] [address] [place] [address] Sep, [facility] [address] [place] [id number] [place] [address] Sep, [facility] [address] [place] [id number] [address] [place] [address] Aug, [facility] [address] [address] Aug, [facility] [address] [place] [id number] [place] [address] Jul, [place] [address] [address] Jul, Diabetes type 1, controlled E10.9 [place] [address] [address] Jun, Diabetes mellitus without me ntion of complication, type II or unspecified type, uncontrolled 250.02 [place] [address] [address] 09 Jun, 2015 Diabetes type 1, controlled E10.9 [place] [address] [address] May, Diabetes mellitus without me ntion of complication, type II or unspecified type, uncontrolled 250.02 [place] [address] [address] May, Anxiety 300.00 [facility] [address] [address] 09 May, 2015 Diabetes type 1, controlled E10.9 ; Schizo-affective schizophrenia F25.0 ; Mood disorder F39 and Bipolar 1 disorder F31.9 [place] [address] [address] May, [facility] [address] [address] May, Anxiety F41.9 and Depression F32.9 [facility] [address] [address] Apr, Diabetes mellitus without me ntion of complication, type II or unspecified type, uncontrolled 250.02 [facility] [address] [place] [id number] [place] [address] Apr, Anxiety 300.00 and Diabetes mellitus without mention of complication, type II or unspecified type, uncontrolled 250.02 [facility] [address] [address] Apr, [facility] [address] [address] Apr, Anxiety 300.00 and Depressio n 311 [facility] [address] [address] Apr, Major depression, recurrent 296.30 ; Anxiety, generalized 300.02 and No condition on [place] II V71.09 [facility] [address] [address] Apr, [facility] [address] [address] Mar, Diabetes mellitus without me ntion of complication, type II or unspecified type, uncontrolled 250.02 and Anxiety 300.00 [facility] [address] [address] Mar, [facility] [address] [address] Feb, [facility] [address] [address] Feb, [facility] [address] [address] Feb, [facility] [address] [address] Jan, [facility] [address] [id number] [address] [place] [address] Jan, [facility] [address] [id number] [address] [place] [address] Jan, [facility] [address] [id number] [address] [place] [address] Jan, [facility] [address] [id number] [address] [place] [address] December, [facility] [address] [id number] [address] [place] [id number] December, Dental examination V72.2 [facility] [address] [id number] [address] [place] [address] December, Tooth pain 525.9 [facility] [address] [id number] [address] [place] [address] December, [facility] [address] [id number] [address] [place] [address] Nov, [facility] [address] [id number] [address] [place] [address] Nov, [facility] [address] [id number] [address] [place] [address] Oct, [facility] [address] [id number] [address] [place] [address] Oct, [facility] [address] [id number] [address] [place] [address] Sep, [facility] [address] [id number] [address] [place] [address] Sep, [facility] [address] [id number] [address] [place] [address] Sep, [facility] [address] [id number] [address] [place] [address] Sep, [facility] [address] [id number] [address] [place] [address], [place] [address] Aug, [facility] [address] [id number] [address] [place] [address], [place] [address] Aug, [facility] [address] [id number] [address] [place] [address], [place] [address] Aug, [facility] [address] [id number] [address] [place] [address], [place] [address] Aug, [facility] [address] [id number] [address] [place] [address], [place] [address] Jul, [facility] [address] [id number] [address] [place] [address], [place] [address] Jul, [facility] [address] [id number] [address] [place] [address], [place] [address] Jun, [facility] [address] [id number] [address] [place] [address], [place] [address] Jun, [facility] [address] [id number] [address] [place] [address], [place] [address] May, [facility] [address] [id number] [address] [place] [address], [place] [address] May, [facility] [address] [id number] [address] [place] [address], [place] [address] May, [facility] [address] [id number] [address] [place] [address], [place] [address] May, [facility] [address] [id number] [address] [place] [address], [place] [address] May, [facility] [address] [id number] [address] [place] [address], [place] [address] May, [facility] [address] [id number] [address] [place] [address], [place] [address] Apr, [facility] [address] [id number] [address] [place] [address], [place] [address] Apr, [facility] [address] [id number] [facility] [place] [address] Apr, [facility] [address] [id number] [address] [place] [address], [place] [address] Apr, [facility] [address] [id number] [address] [place] [address], [place] [address] Apr, [facility] [address] [id number] [address] [place] [address], [place] [address] Apr, [facility] [address] [id number] [address] [place] [address], [place] [address] Mar, [facility] [address] [id number] [address] [place] [address], [place] [address] Mar, [facility] [address] [id number] [address] [place] [address], [place] [address] Mar, [facility] [address] [id number] [address] [place] [address], [place] [address] Mar, [facility] [address] [id number] [address] [place] [address], [place] [address] Feb, [facility] [address] [id number] [address] [place] [address], [place] [address] Feb, [facility] [address] [id number] [address] [place] [address], [place] [address] Feb, [facility] [address] [id number] [address] [place] [address], [place] [address] Feb, [facility] [address] [id number] [address] [place] [address], [place] [address] Jan, [facility] [address] [id number] [address] [place] [address], [place] [address] Jan, [facility] [address] [id number] [address] [place] [address], [place] [address] 16 Jan, 2014 [facility] [address] [id number] [address] [place] [address], [place] [address] Jan, [facility] [address] [id number] [facility] [place] [address] Jan, [facility] [address] [id number] [address] [place] [address], [place] [address] Jan, [facility] [address] [id number] [address] [place] [address], [place] [address] Jan, [facility] [address] [id number] [address] [place] [address], [place] [address] Jan, [facility] [address] [id number] [address] [place] [address], [place] [address] Jan, [facility] [address] [id number] [address] [place] [address], [place] [address] Jan, [facility] [address] [id number] [address] [place] [address], [place] [address] December, [facility] [address] [id number] [address] [place] [address], [place] [address] December, [facility] [address] [id number] [address] [place] [address], [place] [address] December, [facility] [address] [id number] [address] [place] [address], [place] [address] December, [facility] [address] [id number] [address] [place] [address], [place] [address] December, [facility] [address] [id number] [address] [place] [address], [place] [address] Nov, [facility] [address] [id number] [address] [place] [address], [place] [address] Nov, [facility] [address] [id number] [address] [place] [address], [place] [address] Nov, [facility] [address] [id number] [address] [place] [address], [place] [address] Oct, [facility] [address] [id number] [facility] [place] [address] 29 Oct, 2013 [facility] [address] [id number] [address] [place] [address], [place] [address] 29 Oct, 2013 [facility] [address] [id number] [facility] [place] [address] Oct, [facility] [address] [id number] [address] [place] [address], [place] [address] Oct, [facility] [address] [id number] [address] [place] [address], [place] [address] Oct, [facility] [address] [id number] [address] [place] [address], [place] [address] Oct, [facility] [address] [id number] [address] [place] [address], [place] [address] Oct, [facility] [address] [id number] [address] [place] [address], [place] [address] Oct, [facility] [address] [id number] [address] [place] [address], [place] [address] Sep, [facility] [address] [id number] [address] [place] [address], [place] [address] Sep, [facility] [address] [id number] [address] [place] [address], [place] [address] Aug, [facility] [address] [id number] [address] [place] [address], [place] [address] Aug, [facility] [address] [id number] [address] [place] [address], [place] [address] Aug, [facility] [address] [id number] [address] [place] [address], [place] [address] Aug, [facility] [address] [id number] [address] [place] [address], [place] [address] Jul, [facility] [address] [id number] [address] [place] [address], [place] [address] Jul, [facility] [address] [id number] [address] [place] [address], [place] [address] Jul, [facility] [address] [id number] [address] [place] [address], [place] [address] Jul, [facility] [address] [id number] [address] [place] [address], [place] [address] Jun, [facility] [address] [id number] [address] [place] [address], [place] [address] Jun, [facility] [address] [id number] [address] [place] [address], [place] [address] Jun, [facility] [address] [id number] [address] [place] [address], [place] [address] Jun, [facility] [address] [id number] [address] [place] [address], [place] [address] May, [facility] [address] [id number] [address] [place] [address], [place] [address] May, [facility] [address] [id number] [address] [place] [address], [place] [address] May, [facility] [address] [id number] [address] [place] [address] May, [facility] [address] [id number] [address] [place] [address] May, [facility] [address] [id number] [address] [place] [address] May, [facility] [address] [id number] [address] [place] [address], [place] [address] Apr, [facility] [address] [id number] [address] [place] [address], [place] [address] Mar, [facility] [address] [id number] [address] [place] [address], [place] [address] Mar, [facility] [address] [id number] [address] [place] [address], [place] [address] Mar, [facility] [address] [id number] [address] [place] [address], [place] [address] Feb, [facility] [address] [id number] [address] [place] [address], [place] [address] Feb, [facility] [address] [id number] [address] [place] [address], [place] [address] Feb, [facility] [address] [id number] [address] [place] [address], [place] [address] Jan, [facility] [address] [id number] [address] [place] [address], [place] [address] Jan, [facility] [address] [id number] [address] [place] [address], [place] [address] December, [facility] [address] [id number] [address] [place] [address], [place] [address] December, [facility] [address] [id number] [address] [place] [address], [place] [address] December, [facility] [address] [id number] [address] [place] [address], [place] [address] Nov, [facility] [address] [id number] [address] [place] [address], [place] [address] Nov, [facility] [address] [id number] [address] [place] [address], [place] [address] Nov, [facility] [address] [id number] [address] [place] [address], [place] [address] 2012 [facility] [address] [id number] [address] [place] [address], [place] [address] 15 Nov, 2012 [facility] [address] [id number] [address] [place] [address], [place] [address] Nov, [facility] [address] [id number] [address] [place] [address], [place] [address] Oct, [facility] [address] [id number] [address] [place] [address], [place] [address] 14 Oct, 2012 [facility] [address] [id number] [address] [place] [address], [place] [address] Oct, [facility] [address] [id number] [address] [place] [address], [place] [address] 06 Oct, 2012 [facility] [address] [id number] [address] [place] [address], [place] [address] 28 Sep, 2012 [facility] [address] [id number] [address] [place] [address], [place] [address] Sep, [facility] [address] [id number] [address] [place] [address], [place] [address] Sep, [facility] [address] [id number] [address] [place] [address], [place] [address] Sep, [facility] [address] [id number] [address] [place] [address], [place] [address] Sep, [facility] [address] [id number] [address] [place] [address], [place] [address] Aug, [facility] [address] [id number] [address] [place] [address], [place] [address] Aug, [facility] [address] [id number] [address] [place] [address], [place] [address] Aug, [facility] [address] [id number] [address] [place] [address], [place] [address] Aug, [facility] [address] [id number] [address] [place] [address], [place] [address] Aug, [facility] [address] [id number] [address] [place] [address], [place] [address] Aug, [facility] [address] [id number] [address] [place] [address], [place] [address] 15 May, 2011 [facility] [address] [id number] [address] [place] [id number] May, IMMUNIZATIONS No Known Immunizations SOCIAL HISTORY [...]
--- OUTSIDE RECORDS SUMMARY | 2020-01-16 00:18 | XMS REPORT ---
Author Author Darien VILLALOBOS Organization [facility] Address [address] [place] [address] Care Team Providers Care Senior Instructor Name Role Phone CHRISTOPHER VILLALOBOS Unavailable PROBLEMS Type Condition ICD9-CM Code HLW50-VP Code Onset Dates Condition S tatus SNOMED Code Problem Diabetes type 1, controlled E10.9 Ac tive 59267635 Problem Type 2 diabetes mellitus with hyperglycemia E11.65 Active 826286769140304 Problem Type 1 diabetes mellitus with hyperglycemia E10.65 Active [id number] Problem Uncontrolled type 1 diabetes mellitus without complication E10.9 Active 929897567 Problem Type 1 diabetes mellitus without complication E10. 9 Active 299901917 Problem Type 1 diabetes mellitus with diabetic polyneuropathy E10.42 Active 49250791 Problem Mood disorder F39 Active 996674 05 Problem Other chronic pain G89.29 Active 8 9926495 Problem Schizoaffective disorder, depressive type F25.1 Active [id number] ALLERGIES No Information ENCOUNTERS Encounter Location Date Diagnosis [place] [address] [address] Oct, [facility] [address] [address] Jun, [facility] [address] [address] Jun, [facility] [address] [address] Jun, [facility] [address] [address] May, Type 1 diabetes mellitus without complic ation E10.9 [facility] [address] [address] May, Type 1 diabetes mellitus without complic ation E10.9 ; Encounter for immunization Z23 and Mood disorder F39 [place] [address] [address] December, [place] [address] [address] Nov, [place] [address] [address] Nov, Uncontrolled type 1 diabetes mellitus wi thout complication E10.9 [place] [address] [address] Nov, Impingement syndrome, shoulder, right M7 5.41 and Adhesive capsulitis of right shoulder M75.01 [place] [address] [address] Nov, Uncontrolled type 1 diabetes mellitus wi thout complication E10.9 [place] [address] [address] Oct, Uncontrolled type 1 diabetes mellitus wi thout complication E10.9 ; Other chronic pain G89.29 ; Pain in right shoulder M25.511 and Schizoaffective disorder, depressive type F25.1 [place] [address] [address] May, Mood disorder F39 and Controlled diabete s mellitus type 1 without complications E10.9 [place] [address] [address] May, [place] [address] [address] May, [place] [address] [address] Apr, Mood disorder F39 ; Type 1 diabetes jerome itus with diabetic polyneuropathy E10.42 and Type 1 diabetes mellitus with hyperglycemia E10.65 [place] [address] [address] Apr, Mood disorder F39 [place] [address] [address] Mar, [facility] [address] [place] [address] [id number] [place] [address] Feb, [facility] [id number] [place] [address] Jan, [facility] [id number] [place] [address] Jan, [facility] [address] [place] [address] [id number] [place] [address] Jan, [facility] [address] [place] [address] [id number] [place] [address] December, [facility] [address] [place] [address] [id number] [place] [address] December, Schizoid personality disorder in adult F 60.1 and Controlled type 1 diabetes mellitus with diabetic neuropathy, with long-term current use of insulin E10.40 [facility] [address] [place] [address] [id number] [place] [address] December, Schizo-affective schizophrenia F25.0 [facility] [address] [id number] [place] [address] Nov, [facility] [address] [address] Nov, Anxiety disorder, unspecified F41.9 and Schizo-affective schizophrenia F25.0 [facility] [id number] [place] [address] Nov, Schizo-affective schizophrenia F25.0 [facility] [address] [id number] [place] [address] Oct, [facility] [address] [id number] [place] [address] Sep, [facility] [address] [place] [address] [id number] [place] [address] Sep, [facility] [address] [id number] [place] [address] Sep, [facility] [address] [address] Aug, [facility] [address] [address] Aug, [facility] [address] [address] Jul, [place] [address] [address] Jul, Diabetes type 1, controlled E10.9 [place] [address] [address] Jun, Diabetes mellitus without mention of com plication, type II or unspecified type, uncontrolled 250.02 [place] [address] [address] Jun, Diabetes type 1, controlled E10.9 [place] [address] [address] May, Diabetes mellitus without mention of com plication, type II or unspecified type, uncontrolled 250.02 [place] [address] [address] May, Anxiety [address] [address] May, Diabetes type 1, controlled E10.9 ; Schi zo-affective schizophrenia F25.0 ; Mood disorder F39 and Bipolar 1 disorder F31.9 [place] [address] [address] May, [place] [address] [address] May, Anxiety F41.9 and Depression F32.[address] [address] Apr, Diabetes mellitus without mention of com plication, type II or unspecified type, uncontrolled 250.02 [place] [address] [address] Apr, Anxiety 300.00 and Diabetes mellitus wit hout mention of complication, type II or unspecified type, uncontrolled 250.02 [facility] [address] [address] Apr, [facility] [address] [address] Apr, Anxiety 300.00 and Depression 311 [facility] [address] [address] Apr, Major depression, recurrent 296.30 ; Anx iety, generalized 300.02 and No condition on Harmony II V71.09 [facility] [address] [address] Apr, [facility] [address] [address] Mar, Diabetes mellitus without mention of com plication, type II or unspecified type, uncontrolled 250.02 and Anxiety 300.00 [facility] [address] [address] Mar, [facility] [address] [address] Feb, [facility] [address] [address] Feb, [facility] [address] [address] Feb, [facility] [address] [address] Jan, [facility] [address] [address] Jan, [facility] [address] [address] Jan, [facility] [address] [address] Jan, [facility] [address] [address] December, [facility] [address] [facility] [place] [id number] December, Dental examination V72.2 [facility] [id number] [place] [address] December, Tooth pain 525.9 [facility] [id number] [place] [address] December, [facility] [id number] [place] [address] Nov, [facility] [id number] [place] [address] Nov, [facility] [id number] [place] [address] Oct, [facility] [id number] [place] [address] Oct, [facility] [id number] [place] [address] Sep, [facility] [id number] [place] [address] Sep, [facility] [id number] [place] [address] Sep, [facility] [id number] [place] [address] Sep, [facility] [id number] [place] [address] Aug, [facility] [id number] [place] [address] Aug, [facility] [id number] [place] [address] Aug, [facility] [id number] [place] [address] Aug, [facility] [id number] [place] [address] Jul, [facility] [address] [facility] [id number] [place] [address] Jul, [facility] [address] [id number] [place] [address] Jun, [facility] [id number] [place] [address] Jun, [facility] [id number] [place] [address] May, [facility] [address] [facility] [id number] [place] [address] May, [facility] [address] [facility] [id number] [place] [address] May, [facility] [id number] [place] [address] May, [facility] [id number] [place] [address] May, [facility] [id number] [place] [address] May, [facility] [id number] [place] [address] Apr, [facility] [id number] [place] [address] Apr, [facility] [id number] [place] [address] 17 Apr, 2014 [facility] [id number] [place] [address] 17 Apr, 2014 [facility] [id number] [place] [address] 08 Apr, 2014 [facility] [id number] [place] [address] 08 Apr, 2014 [facility] [id number] [place] [address] Mar, [facility] [id number] [place] [address] Mar, [facility] [address] [facility] [id number] [facility] [place] [address] Mar, [facility] [address] [facility] [id number] [facility] [place] [address] Mar, [facility] [id number] [place] [address] Feb, [facility] [address] [facility] [id number] [facility] [place] [address] Feb, [facility] [address] [facility] [id number] [facility] [place] [address] Feb, [facility] [address] [facility] [id number] [place] [address] Feb, [facility] [id number] [place] [address] Jan, [facility] [id number] [place] [address] Jan, [facility] [address] [facility] [id number] [place] [address] Jan, [facility] [id number] [place] [address] Jan, [facility] [id number] [place] [address] Jan, [facility] [id number] [place] [address] Jan, [facility] [address] [facility] [id number] [place] [address] Jan, [facility] [address] [facility] [id number] [place] [address] Jan, [facility] [id number] [place] [address] Jan, [facility] [id number] [place] [address] Jan, [facility] [id number] [place] [address] December, [facility] [id number] [place] [address] December, [facility] [id number] [place] [address] December, [facility] [id number] [place] [address] December, [facility] [id number] [place] [address] December, [facility] [id number] [place] [address] Nov, [facility] [id number] [place] [address] Nov, [facility] [id number] [place] [address] Nov, [facility] [id number] [place] [address] Oct, [facility] [id number] [place] [address] Oct, [facility] [id number] [place] [address] Oct, [facility] [id number] [place] [address] Oct, [facility] [id number] [place] [address] Oct, [facility] [id number] [place] [address] Oct, [facility] [id number] [place] [address] Oct, [facility] [id number] [place] [address] Oct, [facility] [id number] [place] [address] Oct, [facility] [id number] [place] [address] Sep, [facility] [id number] [place] [address] Sep, [facility] [id number] [place] [address] Aug, [facility] [id number] [place] [address] Aug, [facility] [id number] [place] [address] Aug, [facility] [id number] [place] [address] Aug, [facility] [id number] [place] [address] Jul, [facility] [id number] [place] [address] Jul, [facility] [id number] [place] [address] Jul, [facility] [id number] [place] [address] Jul, [facility] [id number] [place] [address] Jun, [facility] [id number] [place] [address] Jun, [facility] [id number] [place] [address] Jun, [facility] [id number] [place] [address] Jun, [facility] [id number] [place] [address] May, [facility] [id number] [place] [address] May, [facility] [id number] [place] [address] May, [facility] [id number] [place] [address] May, [facility] [id number] [place] [address] May, [facility] [id number] [place] [address] May, [facility] [id number] [place] [address] Apr, [facility] [id number] [place] [address] Mar, [facility] [id number] [place] [address] Mar, [facility] [id number] [place] [address] Mar, [facility] [id number] [place] [address] Feb, [facility] [id number] [place] [address] Feb, [facility] [id number] [place] [address] Feb, [facility] [id number] [place] [address] Jan, [facility] [id number] [place] [address] Jan, [facility] [id number] [place] [address] December, [facility] [id number] [place] [address] December, [facility] [id number] [place] [address] December, [facility] [id number] [place] [address] Nov, [facility] [id number] [facility] [place] [address] 24 Nov, 2012 [facility] [address] [id number] [place] [address] 23 Nov, 2012 [facility] [id number] [place] [address] 2012 [facility] [id number] [place] [address] 15 Nov, 2012 [facility] [id number] [place] [address] 05 Nov, 2012 [facility] [id number] [place] [address] 25 Oct, 2012 [facility] [id number] [place] [address] 14 Oct, 2012 [facility] [id number] [place] [address] Oct, [facility] [id number] [place] [address] 06 Oct, 2012 [facility] [id number] [place] [address] 28 Sep, 2012 [facility] [id number] [place] [address] Sep, [facility] [id number] [place] [address] 18 Sep, 2012 [facility] [id number] [place] [address] Sep, [facility] [id number] [place] [address] Sep, [facility] [id number] [place] [address] Aug, [facility] [id number] [place] [address] Aug, [facility] [id number] [place] [address] Aug, [facility] [id number] [place] [address] Aug, [facility] [id number] [place] [address] Aug, [facility] [id number] [place] [address] Aug, [facility] [id number] [place] [address] May, [facility] [id number] [place] [address] May, IMMUNIZATIONS No Known Immunizations SOCIAL HISTORY [...]
--- OUTSIDE RECORDS SUMMARY | 2020-01-16 00:18 | XMS REPORT ---
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 9 Active 330307931 Problem Type 1 diabetes mellitus with diabetic polyneuropathy E10.42 Active 70816818 Problem Mood disorder F39 Active 830078 05 Problem Other chronic pain G89.29 Active 8 9163251 Problem Schizoaffective disorder, depressive type F25.1 Active [id number] ALLERGIES No Information ENCOUNTERS Encounter Location Date Diagnosis [place] [address] [address] Oct, [facility] [address] [address] Jun, [facility] [address] [address] Jun, [facility] [address] [address] Jun, [facility] [address] [address] May, Type 1 diabetes mellitus without complic ation E10.9 [facility] [address] [address] May, Type 1 diabetes mellitus without complic ation E10.9 ; Encounter for immunization Z23 and Mood disorder F39 [place] [address] [address] December, [place] [address] [address] Nov, [place] [address] [address] Nov, Uncontrolled type 1 diabetes mellitus wi thout complication E10.9 [place] [address] [address] Nov, Impingement syndrome, shoulder, right M7 5.41 and Adhesive capsulitis of right shoulder M75.01 [place] [address] [address] Nov, Uncontrolled type 1 diabetes mellitus wi thout complication E10.9 [place] [address] [address] Oct, Uncontrolled type 1 diabetes mellitus wi thout complication E10.9 ; Other chronic pain G89.29 ; Pain in right shoulder M25.511 and Schizoaffective disorder, depressive type F25.1 [place] [address] [address] May, Mood disorder F39 and Controlled diabete s mellitus type 1 without complications E10.9 [place] [address] [address] May, [place] [address] [address] May, [place] [address] [address] Apr, Mood disorder F39 ; Type 1 diabetes jerome itus with diabetic polyneuropathy E10.42 and Type 1 diabetes mellitus with hyperglycemia E10.65 [place] [address] [address] Apr, Mood disorder F39 [place] [address] [address] Mar, [facility] [address] [place] [id number] [place] [address] Feb, [facility] [address] [place] [address] [id number] [place] [address] Jan, [facility] [id number] [place] [address] Jan, [facility] [address] [place] [address] [id number] [place] [address] Jan, [facility] [address] [place] [address] [id number] [place] [address] December, [facility] [address] [place] [address] [id number] [place] [address] December, Schizoid personality disorder in adult F 60.1 and Controlled type 1 diabetes mellitus with diabetic neuropathy, with long-term current use of insulin E10.40 [facility] [address] [place] [address] [id number] [place] [address] December, Schizo-affective schizophrenia F25.0 [facility] [address] [place] [address] [id number] [place] [address] Nov, [facility] [address] [address] Nov, Anxiety disorder, unspecified F41.9 and Schizo-affective schizophrenia F25.0 [facility] [address] [place] [id number] [place] [address] Nov, Schizo-affective schizophrenia F25.0 [facility] [address] [id number] [place] [address] Oct, [facility] [id number] [place] [address] Sep, [facility] [address] [address] [id number] [place] [address] Sep, [facility] [address] [place] [address] [id number] [place] [address] Sep, [facility] [address] [address] Aug, [facility] [address] [address] Aug, [facility] [address] [address] Jul, [place] [address] [address] Jul, Diabetes type 1, controlled E10.9 [place] [address] [address] Jun, Diabetes mellitus without mention of com plication, type II or unspecified type, uncontrolled 250.02 [place] [address] [address] Jun, Diabetes type 1, controlled E10.9 [place] [address] [address] May, Diabetes mellitus without mention of com plication, type II or unspecified type, uncontrolled 250.02 [place] [address] [address] May, Anxiety 300.[address] [address] May, Diabetes type 1, controlled E10.9 ; Schi zo-affective schizophrenia F25.0 ; Mood disorder F39 and Bipolar 1 disorder F31.9 [place] [address] [address] May, [place] [address] [address] May, Anxiety F41.9 and Depression F32.[address] [address] Apr, Diabetes mellitus without mention of com plication, type II or unspecified type, uncontrolled 250.02 [place] [address] [address] Apr, Anxiety 300.00 and Diabetes mellitus wit hout mention of complication, type II or unspecified type, uncontrolled 250.02 [facility] [address] [address] Apr, [facility] [address] [address] Apr, Anxiety 300.00 and Depression 311 [facility] [address] [address] Apr, Major depression, recurrent 296.30 ; Anx iety, generalized 300.02 and No condition on Winters II V71.09 [facility] [address] [address] Apr, [facility] [address] [address] Mar, Diabetes mellitus without mention of com plication, type II or unspecified type, uncontrolled 250.02 and Anxiety 300.00 [facility] [address] [address] Mar, [facility] [address] [address] Feb, [facility] [address] [address] Feb, [facility] [address] [address] Feb, [facility] [address] [address] Jan, [facility] [address] [address] Jan, [facility] [address] [address] Jan, [facility] [address] [address] Jan, [facility] [address] [address] December, [facility] [address] [id number] [place] [id number] December, Dental examination V72.2 [facility] [address] [id number] [place] [address] December, Tooth pain 525.9 [facility] [id number] [place] [address] December, [facility] [id number] [place] [address] Nov, [facility] [id number] [place] [address] Nov, [facility] [id number] [place] [address] Oct, [facility] [id number] [place] [address] Oct, [facility] [address] [id number] [place] [address] Sep, [facility] [address] [id number] [place] [address] Sep, [facility] [address] [id number] [place] [address] Sep, [facility] [address] [id number] [place] [address] Sep, [facility] [address] [id number] [place] [address] Aug, [facility] [id number] [place] [address] Aug, [facility] [id number] [place] [address] Aug, [facility] [address] [id number] [place] [address] Aug, [facility] [address] [place] [id number] [place] [address] Jul, [facility] [address] [facility] [id number] [place] [address] Jul, [facility] [address] [facility] [id number] [place] [address] Jun, [facility] [address] [id number] [place] [address] Jun, [facility] [address] [id number] [place] [address] May, [facility] [address] [facility] [id number] [place] [address] May, [facility] [address] [facility] [id number] [place] [address] May, [facility] [address] [facility] [id number] [place] [address] May, [facility] [address] [facility] [id number] [place] [address] May, [facility] [address] [facility] [id number] [place] [address] May, [facility] [address] [facility] [id number] [place] [address] Apr, [facility] [address] [facility] [id number] [place] [address] Apr, [facility] [address] [id number] [place] [address] 17 Apr, 2014 [facility] [address] [facility] [id number] [place] [address] 17 Apr, 2014 [facility] [address] [facility] [id number] [place] [address] 08 Apr, 2014 [facility] [address] [facility] [id number] [place] [address] 08 Apr, 2014 [facility] [address] [facility] [id number] [place] [address] Mar, [facility] [address] [facility] [id number] [place] [address] Mar, [facility] [address] [facility] [id number] [facility] [place] [address] Mar, [facility] [address] [facility] [id number] [facility] [place] [address] Mar, [facility] [address] [facility] [id number] [place] [address] Feb, [facility] [address] [facility] [id number] [facility] [place] [address] Feb, [facility] [address] [facility] [id number] [facility] [place] [address] Feb, [facility] [address] [facility] [id number] [place] [address] Feb, [facility] [address] [facility] [id number] [place] [address] Jan, [facility] [address] [facility] [id number] [place] [address] Jan, [facility] [address] [facility] [id number] [place] [address] Jan, [facility] [address] [facility] [id number] [place] [address] Jan, [facility] [address] [facility] [id number] [place] [address] Jan, [facility] [address] [id number] [place] [address] Jan, [facility] [address] [facility] [id number] [place] [address] Jan, [facility] [address] [facility] [id number] [place] [address] Jan, [facility] [address] [facility] [id number] [place] [address] Jan, [facility] [address] [id number] [place] [address] Jan, [facility] [address] [id number] [place] [address] December, [facility] [address] [id number] [place] [address] December, [facility] [address] [id number] [place] [address] December, [facility] [address] [id number] [place] [address] December, [facility] [address] [id number] [place] [address] December, [facility] [address] [id number] [place] [address] Nov, [facility] [address] [id number] [place] [address] Nov, [facility] [address] [id number] [place] [address] Nov, [facility] [address] [id number] [place] [address] Oct, [facility] [address] [id number] [place] [address] Oct, [facility] [address] [id number] [place] [address] Oct, [facility] [address] [id number] [place] [address] Oct, [facility] [address] [id number] [place] [address] Oct, [facility] [address] [id number] [place] [address] Oct, [facility] [address] [id number] [place] [address] Oct, [facility] [address] [id number] [place] [address] Oct, [facility] [address] [id number] [place] [address] Oct, [facility] [address] [id number] [place] [address] Sep, [facility] [address] [id number] [place] [address] Sep, [facility] [address] [id number] [place] [address] Aug, [facility] [address] [id number] [place] [address] Aug, [facility] [address] [id number] [place] [address] Aug, [facility] [address] [id number] [place] [address] Aug, [facility] [address] [id number] [place] [address] Jul, [facility] [address] [id number] [place] [address] Jul, [facility] [address] [id number] [place] [address] Jul, [facility] [address] [id number] [place] [address] Jul, [facility] [address] [id number] [place] [address] Jun, [facility] [address] [id number] [place] [address] Jun, [facility] [address] [id number] [place] [address] Jun, [facility] [address] [id number] [place] [address] Jun, [facility] [address] [id number] [place] [address] May, [facility] [address] [id number] [place] [address] May, [facility] [address] [id number] [place] [address] May, [facility] [address] [id number] [place] [address] May, [facility] [address] [id number] [place] [address] May, [facility] [address] [id number] [place] [address] May, [facility] [address] [id number] [place] [address] Apr, [facility] [address] [id number] [place] [address] Mar, [facility] [address] [id number] [place] [address] Mar, [facility] [address] [id number] [place] [address] Mar, [facility] [address] [id number] [place] [address] Feb, [facility] [address] [id number] [place] [address] Feb, [facility] [address] [id number] [place] [address] Feb, [facility] [address] [id number] [place] [address] Jan, [facility] [address] [id number] [place] [address] Jan, [facility] [address] [id number] [place] [address] December, [facility] [address] [id number] [place] [address] December, [facility] [address] [id number] [place] [address] December, [facility] [address] [id number] [place] [address] Nov, [facility] [address] [id number] [facility] [place] [address] 24 Nov, 2012 [facility] [address] [id number] [place] [address] 23 Nov, 2012 [facility] [address] [id number] [place] [address] 2012 [facility] [address] [id number] [place] [address] 15 Nov, 2012 [facility] [address] [id number] [place] [address] 05 Nov, 2012 [facility] [address] [id number] [place] [address] 25 Oct, 2012 [facility] [address] [id number] [place] [address] 14 Oct, 2012 [facility] [address] [id number] [place] [address] Oct, [facility] [address] [id number] [place] [address] 06 Oct, 2012 [facility] [address] [id number] [place] [address] 28 Sep, 2012 [facility] [address] [id number] [place] [address] Sep, [facility] [address] [id number] [place] [address] 18 Sep, 2012 [facility] [address] [id number] [place] [address] Sep, [facility] [address] [id number] [place] [address] Sep, [facility] [address] [id number] [place] [address] Aug, [facility] [address] [id number] [place] [address] Aug, [facility] [address] [id number] [place] [address] Aug, [facility] [address] [id number] [place] [address] Aug, [facility] [address] [id number] [place] [address] Aug, [facility] [address] [id number] [place] [address] Aug, [facility] [address] [id number] [place] [address] May, [facility] [address] [id number] [place] [address] May, IMMUNIZATIONS No Known Immunizations SOCIAL HISTORY [...]
--- OUTSIDE RECORDS SUMMARY | 2020-01-16 00:18 | XMS REPORT ---
Author Author Darien VILLALOBOS Organization [facility] Address [address] [place] [address] Care Team Providers Care Apartment Leasing Manager Name Role Phone CHRISTOPHER VILLALOBOS Unavailable PROBLEMS Type Condition ICD9-CM Code RBL61-CL Code Onset Dates Condition S tatus SNOMED Code Problem Diabetes type 1, controlled E10.9 Ac tive 69889476 Problem Type 2 diabetes mellitus with hyperglycemia E11.65 Active [id number] Problem Type 1 diabetes mellitus with hyperglycemia E10.65 Active [id number] Problem Uncontrolled type 1 diabetes mellitus without complication E10.9 Active 966805307 Problem Type 1 diabetes mellitus without complication E10. 9 Active 903512953 Problem Type 1 diabetes mellitus with diabetic polyneuropathy E10.42 Active 67896637 Problem Mood disorder F39 Active 864058 05 Problem Other chronic pain G89.29 Active 8 6318005 Problem Schizoaffective disorder, depressive type F25.1 Active [id number] ALLERGIES No Information ENCOUNTERS Encounter Location Date Diagnosis [facility] [address] [id number] [address] [place] [address] Oct, [facility] [address] [id number] [address] [place] [address] Jun, [facility] [address] [id number] [address] [place] [address] Jun, [facility] [address] [id number] [address] [place] [address] Jun, [facility] [address] [id number] [address] [place] [address] May, Type 1 diabetes mellitus wit hout complication E10.9 [facility] [address] [id number] [address] [place] [address] May, Type 1 diabetes mellitus wit hout complication E10.9 ; Encounter for immunization Z23 and Mood disorder F39 [facility] [address] [id number] [address] [place] [address] December, [place] [address] [id number] [address] [place] [address] Nov, [place] [address] [id number] [address] [place] [address] Nov, Uncontrolled type 1 diabetes mellitus without complication E10.9 [place] [address] [id number] [address] [place] [address] Nov, Impingement syndrome, should er, right M75.41 and Adhesive capsulitis of right shoulder M75.01 [place] [address] [id number] [address] [place] [address] Nov, Uncontrolled type 1 diabetes mellitus without complication E10.9 [place] [address] [place] [id number] [address] [place] [address] Oct, Uncontrolled type 1 diabetes mellitus without complication E10.9 ; Other chronic pain G89.29 ; Pain in right shoulder M25.511 and Schizoaffective disorder, depressive type F25.1 [place] [address] [id number] [address] [place] [address] May, Mood disorder F39 and Contro lled diabetes mellitus type 1 without complications E10.9 [place] [address] [id number] [address] [place] [address] May, [place] [address] [id number] [address] [place] [address] May, [place] [address] [id number] [address] [place] [address] 30 Apr, 2016 Mood disorder F39 ; 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 and Type 1 diabetes mellitus with hyperglycemia E10.65 [place] [address] [id number] [address] [place] [address] Apr, Mood disorder F39 [place] [id number] [id number] [address] [place] [address] Mar, [facility] [address] [id number] [address] [place] [address] Feb, [facility] [address] [id number] [address] [place] [address] Jan, [facility] [address] [id number] [address] [place] [address] Jan, [facility] [address] [id number] [address] [place] [address] Jan, [facility] [address] [id number] [address] [place] [address] December, [facility] [address] [id number] [address] [place] [address] December, 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 and Controlled type 1 diabetes mellitus with diabetic neuropathy, with long-term current use of insulin E10.40 [facility] [address] [id number] [address] [place] [address] December, Schizo-affective schizophren ia F25.0 [facility] [address] [id number] [address] [place] [address] Nov, [facility] [address] [id number] [address] [place] [address] Nov, Anxiety disorder, unspecifie d F41.9 and Schizo-affective schizophrenia F25.0 [facility] [address] [id number] [address] [place] [address] Nov, Schizo-affective schizophren ia F25.0 [facility] [address] [id number] [address] [place] [address] Oct, [facility] [address] [id number] [address] [place] [address] Sep, [facility] [address] [place] [id number] [address] [place] [address] Sep, [facility] [address] [place] [id number] [place] [address] Sep, [facility] [address] [place] [id number] [address] [place] [address] Aug, [facility] [address] [address] Aug, [facility] [address] [place] [id number] [place] [address] Jul, [place] [address] [address] Jul, Diabetes type 1, controlled E10.9 [place] [address] [address] Jun, Diabetes mellitus without me ntion of complication, type II or unspecified type, uncontrolled 250.02 [place] [address] [address] 09 Jun, 2015 Diabetes type 1, controlled E10.9 [place] [address] [address] May, Diabetes mellitus without me ntion of complication, type II or unspecified type, uncontrolled 250.02 [place] [address] [address] May, Anxiety 300.00 [facility] [address] [address] 09 May, 2015 Diabetes type 1, controlled E10.9 ; Schizo-affective schizophrenia F25.0 ; Mood disorder F39 and Bipolar 1 disorder F31.9 [place] [address] [address] May, [facility] [address] [address] May, Anxiety F41.9 and Depression F32.9 [facility] [address] [address] Apr, Diabetes mellitus without me ntion of complication, type II or unspecified type, uncontrolled 250.02 [facility] [address] [place] [id number] [place] [address] Apr, Anxiety 300.00 and Diabetes mellitus without mention of complication, type II or unspecified type, uncontrolled 250.02 [facility] [address] [address] Apr, [facility] [address] [address] Apr, Anxiety 300.00 and Depressio n 311 [facility] [address] [address] Apr, Major depression, recurrent 296.30 ; Anxiety, generalized 300.02 and No condition on [place] II V71.09 [facility] [address] [address] Apr, [facility] [address] [address] Mar, Diabetes mellitus without me ntion of complication, type II or unspecified type, uncontrolled 250.02 and Anxiety 300.00 [facility] [address] [address] Mar, [facility] [address] [address] Feb, [facility] [address] [address] Feb, [facility] [address] [address] Feb, [facility] [address] [address] Jan, [facility] [address] [id number] [address] [place] [address] Jan, [facility] [address] [id number] [address] [place] [address] Jan, [facility] [address] [id number] [address] [place] [address] Jan, [facility] [address] [id number] [address] [place] [address] December, [facility] [address] [id number] [address] [place] [id number] December, Dental examination V72.2 [facility] [address] [id number] [address] [place] [address] December, Tooth pain 525.9 [facility] [address] [id number] [address] [place] [address] December, [facility] [address] [id number] [address] [place] [address] Nov, [facility] [address] [id number] [address] [place] [address] Nov, [facility] [address] [id number] [address] [place] [address] Oct, [facility] [address] [id number] [address] [place] [address] Oct, [facility] [address] [id number] [address] [place] [address] Sep, [facility] [address] [id number] [address] [place] [address] Sep, [facility] [address] [id number] [address] [place] [address] Sep, [facility] [address] [id number] [address] [place] [address] Sep, [facility] [address] [id number] [address] [place] [address], [place] [address] Aug, [facility] [address] [id number] [address] [place] [address], [place] [address] Aug, [facility] [address] [id number] [address] [place] [address], [place] [address] Aug, [facility] [address] [id number] [address] [place] [address], [place] [address] Aug, [facility] [address] [id number] [address] [place] [address], [place] [address] Jul, [facility] [address] [id number] [address] [place] [address], [place] [address] Jul, [facility] [address] [id number] [address] [place] [address], [place] [address] Jun, [facility] [address] [id number] [address] [place] [address], [place] [address] Jun, [facility] [address] [id number] [address] [place] [address], [place] [address] May, [facility] [address] [id number] [address] [place] [address], [place] [address] May, [facility] [address] [id number] [address] [place] [address], [place] [address] May, [facility] [address] [id number] [address] [place] [address], [place] [address] May, [facility] [address] [id number] [address] [place] [address], [place] [address] May, [facility] [address] [id number] [address] [place] [address], [place] [address] May, [facility] [address] [id number] [address] [place] [address], [place] [address] Apr, [facility] [address] [id number] [address] [place] [address], [place] [address] Apr, [facility] [address] [id number] [facility] [place] [address] Apr, [facility] [address] [id number] [address] [place] [address], [place] [address] Apr, [facility] [address] [id number] [address] [place] [address], [place] [address] Apr, [facility] [address] [id number] [address] [place] [address], [place] [address] Apr, [facility] [address] [id number] [address] [place] [address], [place] [address] Mar, [facility] [address] [id number] [address] [place] [address], [place] [address] Mar, [facility] [address] [id number] [address] [place] [address], [place] [address] Mar, [facility] [address] [id number] [address] [place] [address], [place] [address] Mar, [facility] [address] [id number] [address] [place] [address], [place] [address] Feb, [facility] [address] [id number] [address] [place] [address], [place] [address] Feb, [facility] [address] [id number] [address] [place] [address], [place] [address] Feb, [facility] [address] [id number] [address] [place] [address], [place] [address] Feb, [facility] [address] [id number] [address] [place] [address], [place] [address] Jan, [facility] [address] [id number] [address] [place] [address], [place] [address] Jan, [facility] [address] [id number] [address] [place] [address], [place] [address] 16 Jan, 2014 [facility] [address] [id number] [address] [place] [address], [place] [address] Jan, [facility] [address] [id number] [facility] [place] [address] Jan, [facility] [address] [id number] [address] [place] [address], [place] [address] Jan, [facility] [address] [id number] [address] [place] [address], [place] [address] Jan, [facility] [address] [id number] [address] [place] [address], [place] [address] Jan, [facility] [address] [id number] [address] [place] [address], [place] [address] Jan, [facility] [address] [id number] [address] [place] [address], [place] [address] Jan, [facility] [address] [id number] [address] [place] [address], [place] [address] December, [facility] [address] [id number] [address] [place] [address], [place] [address] December, [facility] [address] [id number] [address] [place] [address], [place] [address] December, [facility] [address] [id number] [address] [place] [address], [place] [address] December, [facility] [address] [id number] [address] [place] [address], [place] [address] December, [facility] [address] [id number] [address] [place] [address], [place] [address] Nov, [facility] [address] [id number] [address] [place] [address], [place] [address] Nov, [facility] [address] [id number] [address] [place] [address], [place] [address] Nov, [facility] [address] [id number] [address] [place] [address], [place] [address] Oct, [facility] [address] [id number] [facility] [place] [address] 29 Oct, 2013 [facility] [address] [id number] [address] [place] [address], [place] [address] 29 Oct, 2013 [facility] [address] [id number] [facility] [place] [address] Oct, [facility] [address] [id number] [address] [place] [address], [place] [address] Oct, [facility] [address] [id number] [address] [place] [address], [place] [address] Oct, [facility] [address] [id number] [address] [place] [address], [place] [address] Oct, [facility] [address] [id number] [address] [place] [address], [place] [address] Oct, [facility] [address] [id number] [address] [place] [address], [place] [address] Oct, [facility] [address] [id number] [address] [place] [address], [place] [address] Sep, [facility] [address] [id number] [address] [place] [address], [place] [address] Sep, [facility] [address] [id number] [address] [place] [address], [place] [address] Aug, [facility] [address] [id number] [address] [place] [address], [place] [address] Aug, [facility] [address] [id number] [address] [place] [address], [place] [address] Aug, [facility] [address] [id number] [address] [place] [address], [place] [address] Aug, [facility] [address] [id number] [address] [place] [address], [place] [address] Jul, [facility] [address] [id number] [address] [place] [address], [place] [address] Jul, [facility] [address] [id number] [address] [place] [address], [place] [address] Jul, [facility] [address] [id number] [address] [place] [address], [place] [address] Jul, [facility] [address] [id number] [address] [place] [address], [place] [address] Jun, [facility] [address] [id number] [address] [place] [address], [place] [address] Jun, [facility] [address] [id number] [address] [place] [address], [place] [address] Jun, [facility] [address] [id number] [address] [place] [address], [place] [address] Jun, [facility] [address] [id number] [address] [place] [address], [place] [address] May, [facility] [address] [id number] [address] [place] [address], [place] [address] May, [facility] [address] [id number] [address] [place] [address], [place] [address] May, [facility] [address] [id number] [address] [place] [address] May, [facility] [address] [id number] [address] [place] [address] May, [facility] [address] [id number] [address] [place] [address] May, [facility] [address] [id number] [address] [place] [address], [place] [address] Apr, [facility] [address] [id number] [address] [place] [address], [place] [address] Mar, [facility] [address] [id number] [address] [place] [address], [place] [address] Mar, [facility] [address] [id number] [address] [place] [address], [place] [address] Mar, [facility] [address] [id number] [address] [place] [address], [place] [address] Feb, [facility] [address] [id number] [address] [place] [address], [place] [address] Feb, [facility] [address] [id number] [address] [place] [address], [place] [address] Feb, [facility] [address] [id number] [address] [place] [address], [place] [address] Jan, [facility] [address] [id number] [address] [place] [address], [place] [address] Jan, [facility] [address] [id number] [address] [place] [address], [place] [address] December, [facility] [address] [id number] [address] [place] [address], [place] [address] December, [facility] [address] [id number] [address] [place] [address], [place] [address] December, [facility] [address] [id number] [address] [place] [address], [place] [address] Nov, [facility] [address] [id number] [address] [place] [address], [place] [address] Nov, [facility] [address] [id number] [address] [place] [address], [place] [address] Nov, [facility] [address] [id number] [address] [place] [address], [place] [address] 2012 [facility] [address] [id number] [address] [place] [address], [place] [address] 15 Nov, 2012 [facility] [address] [id number] [address] [place] [address], [place] [address] Nov, [facility] [address] [id number] [address] [place] [address], [place] [address] Oct, [facility] [address] [id number] [address] [place] [address], [place] [address] 14 Oct, 2012 [facility] [address] [id number] [address] [place] [address], [place] [address] Oct, [facility] [address] [id number] [address] [place] [address], [place] [address] 06 Oct, 2012 [facility] [address] [id number] [address] [place] [address], [place] [address] 28 Sep, 2012 [facility] [address] [id number] [address] [place] [address], [place] [address] Sep, [facility] [address] [id number] [address] [place] [address], [place] [address] Sep, [facility] [address] [id number] [address] [place] [address], [place] [address] Sep, [facility] [address] [id number] [address] [place] [address], [place] [address] Sep, [facility] [address] [id number] [address] [place] [address], [place] [address] Aug, [facility] [address] [id number] [address] [place] [address], [place] [address] Aug, [facility] [address] [id number] [address] [place] [address], [place] [address] Aug, [facility] [address] [id number] [address] [place] [address], [place] [address] Aug, [facility] [address] [id number] [address] [place] [address], [place] [address] Aug, [facility] [address] [id number] [address] [place] [address], [place] [address] Aug, [facility] [address] [id number] [address] [place] [address], [place] [address] 15 May, 2011 [facility] [address] [id number] [address] [place] [address] May, IMMUNIZATIONS No Known Immunizations SOCIAL HISTORY Never Assessed REASON FOR VISIT PLAN OF CARE VITAL SIGNS Height 69 in 2013-09-16 Weight 151.5 lbs 2013-09-16 Temperature 97.2 degrees Fahrenheit 2013-09-16 Heart Rate 100 bpm 2013-09-16 Respiratory Rate 18 2013-09-16 Blood pressure systolic 148 mmHg 2013-09-16 Blood pressure diastolic 72 mmHg 2013-09-16 MEDICATIONS Unknown Medications RESULTS No Results PROCEDURES Procedure Date Ordered Result Body Site GLYCATED HEMOGLOBIN TEST Sep 16, 2013 MICROALBUMIN, SEMIQUANT Sep 16, 2013 INSTRUCTIONS MEDICATIONS ADMINISTERED No Known Medications MEDICAL (GENERAL) HISTORY Type Description Date Medical History type I diabetes Medical History hx of MRSA infections Medical History depression Medical History anxiety Surgical History I & D-MRSA Hospitalization History MRSA 2004
--- OUTSIDE RECORDS SUMMARY | 2020-01-16 00:19 | XMS REPORT ---
Author Author Darien VILLALOBOS Organization [facility] Address [address] [place] [address] Care Team Providers Care Cancer Program Coordinator Name Role Phone CHRISTOPHER VILLALOBOS Unavailable PROBLEMS Type Condition ICD9-CM Code EUE97-CQ Code Onset Dates Condition S tatus SNOMED Code Problem Diabetes type 1, controlled E10.9 Ac tive 14630310 Problem Type 2 diabetes mellitus with hyperglycemia E11.65 Active 873032053212929 Problem Type 1 diabetes mellitus with hyperglycemia E10.65 Active 565969042302123 Problem Uncontrolled type 1 diabetes mellitus without complication E10.9 Active 842470328 Problem Type 1 diabetes mellitus without complication E10. 9 Active 977350814 Problem Type 1 diabetes mellitus with diabetic polyneuropathy E10.42 Active 09085037 Problem Mood disorder F39 Active 360732 05 Problem Other chronic pain G89.29 Active 8 4764387 Problem Schizoaffective disorder, depressive type F25.1 Active 32644190 ALLERGIES No Information ENCOUNTERS Encounter Location Date Diagnosis [place] [address] [address] Jun, [facility] [address] [address] Jun, [facility] [address] [address] Jun, [facility] [address] [address] May, Type 1 diabetes mellitus without complic ation E10.9 [facility] [address] [address] May, Type 1 diabetes mellitus without complic ation E10.9 ; Encounter for immunization Z23 and Mood disorder F39 [facility] [address] [address] December, [place] [address] [address] Nov, [place] [address] [address] Nov, Uncontrolled type 1 diabetes mellitus wi thout complication E10.9 [place] [address] [address] Nov, Impingement syndrome, shoulder, right M7 5.41 and Adhesive capsulitis of right shoulder M75.01 [place] [address] [address] Nov, Uncontrolled type 1 diabetes mellitus wi thout complication E10.9 [place] [address] [address] Oct, Uncontrolled type 1 diabetes mellitus wi thout complication E10.9 ; Other chronic pain G89.29 ; Pain in right shoulder M25.511 and Schizoaffective disorder, depressive type F25.1 [place] [address] [address] May, Mood disorder F39 and Controlled diabete s mellitus type 1 without complications E10.9 [place] [address] [address] May, [place] [address] [address] May, [place] [address] [address] Apr, Mood disorder F39 ; Type 1 diabetes jerome itus with diabetic polyneuropathy E10.42 and Type 1 diabetes mellitus with hyperglycemia E10.65 [place] [address] [address] Apr, Mood disorder F39 [place] [address] [address] Mar, [place] [address] [address] Feb, [facility] [address] [id number] [place] [address] Jan, [facility] [address] [place] [id number] [place] [address] Jan, [facility] [address] [place] [id number] [place] [address] Jan, [facility] [address] [place] [id number] [place] [address] December, [facility] [address] [place] [id number] [place] [address] December, Schizoid personality disorder in adult F 60.1 and Controlled type 1 diabetes mellitus with diabetic neuropathy, with long-term current use of insulin E10.40 [facility] [address] [place] [id number] [place] [address] December, Schizo-affective schizophrenia F25.0 [facility] [address] [place] [id number] [place] [address] Nov, [facility] [address] [place] [id number] [place] [address] Nov, Anxiety disorder, unspecified F41.9 and Schizo-affective schizophrenia F25.0 [facility] [address] [place] [id number] [place] [address] Nov, Schizo-affective schizophrenia F25.0 [facility] [address] [place] [id number] [place] [address] Oct, [facility] [address] [place] [id number] [place] [address] Sep, [facility] [address] [place] [id number] [place] [address] Sep, [facility] [address] [place] [id number] [place] [address] Sep, [facility] [address] [place] [id number] [place] [address] Aug, [facility] [address] [address] Aug, [facility] [address] [address] Jul, [place] [address] [address] Jul, Diabetes type 1, controlled E10.9 [place] [address] [address] Jun, Diabetes mellitus without mention of com plication, type II or unspecified type, uncontrolled 250.02 [place] [address] [address] Jun, Diabetes type 1, controlled E10.9 [place] [address] [address] May, Diabetes mellitus without mention of com plication, type II or unspecified type, uncontrolled 250.02 [place] [address] [address] May, Anxiety 300.00 [place] [address] [address] May, Diabetes type 1, controlled E10.9 ; Schi zo-affective schizophrenia F25.0 ; Mood disorder F39 and Bipolar 1 disorder F31.9 [place] [address] [address] May, [place] [address] [address] May, Anxiety F41.9 and Depression F32.[address] [address] Apr, Diabetes mellitus without mention of com plication, type II or unspecified type, uncontrolled 250.02 [place] [address] [address] Apr, Anxiety 300.00 and Diabetes mellitus wit hout mention of complication, type II or unspecified type, uncontrolled 250.02 [facility] [address] [place] [id number] [place] [address] 16 Apr, 2015 [facility] [address] [address] Apr, Anxiety 300.00 and Depression 311 [facility] [address] [place] [id number] [place] [address] Apr, Major depression, recurrent 296.30 ; Anx iety, generalized 300.02 and No condition on [place] II V71.09 [facility] [address] [address] Apr, [facility] [address] [address] Mar, Diabetes mellitus without mention of com plication, type II or unspecified type, uncontrolled 250.02 and Anxiety 300.00 [facility] [address] [address] Mar, [facility] [address] [address] Feb, [facility] [address] [address] Feb, [facility] [address] [address] Feb, [facility] [address] [address] Jan, [facility] [address] [address] Jan, [facility] [address] [address] Jan, [facility] [address] [address] Jan, [facility] [address] [place] [id number] [place] [address] December, [facility] [address] [place] [id number] [place] [id number] December, Dental examination V72.2 [facility] [address] [place] [id number] [place] [address] December, Tooth pain 525.9 [facility] [address] [id number] [place] [address] December, [facility] [address] [place] [id number] [place] [address] Nov, [facility] [address] [place] [id number] [place] [address] Nov, [facility] [address] [place] [id number] [place] [address] Oct, [facility] [address] [place] [id number] [place] [address] Oct, [facility] [address] [place] [id number] [place] [address] Sep, [facility] [address] [place] [id number] [place] [address] Sep, [facility] [address] [place] [id number] [place] [address] Sep, [facility] [address] [place] [id number] [place] [address] Sep, [facility] [address] [place] [id number] [place] [address] Aug, [facility] [address] [place] [id number] [place] [address] Aug, [facility] [address] [place] [id number] [place] [address] Aug, [facility] [address] [place] [id number] [place] [address] Aug, [facility] [address] [place] [id number] [place] [address] Jul, [facility] [address] [place] [id number] [place] [address] Jul, [facility] [address] [facility] [id number] [place] [address] Jun, [facility] [address] [id number] [place] [address] Jun, [facility] [address] [id number] [place] [address] May, [facility] [address] [id number] [place] [address] May, [facility] [address] [facility] [id number] [place] [address] May, [facility] [address] [id number] [place] [address] May, [facility] [address] [id number] [place] [address] May, [facility] [address] [id number] [place] [address] May, [facility] [address] [id number] [place] [address] Apr, [facility] [address] [id number] [place] [address] Apr, [facility] [address] [id number] [place] [address] Apr, [facility] [address] [id number] [place] [address] Apr, [facility] [address] [id number] [place] [address] 08 Apr, 2014 [facility] [address] [id number] [place] [address] Apr, [facility] [address] [id number] [place] [address] Mar, [facility] [address] [id number] [place] [address] Mar, [facility] [address] [id number] [place] [address] Mar, [facility] [address] [facility] [id number] [place] [address] Mar, [facility] [address] [facility] [id number] [place] [address] Feb, [facility] [address] [id number] [place] [address] Feb, [facility] [address] [facility] [id number] [place] [address] Feb, [facility] [address] [facility] [id number] [place] [address] Feb, [facility] [address] [facility] [id number] [place] [address] Jan, [facility] [address] [id number] [place] [address] Jan, [facility] [address] [id number] [place] [address] Jan, [facility] [address] [facility] [id number] [place] [address] Jan, [facility] [address] [id number] [place] [address] Jan, [facility] [address] [id number] [place] [address] Jan, [facility] [address] [id number] [place] [address] Jan, [facility] [address] [facility] [id number] [place] [address] Jan, [facility] [address] [id number] [place] [address] Jan, [facility] [address] [id number] [place] [address] Jan, [facility] [address] [id number] [place] [address] December, [facility] [address] [id number] [place] [address] December, [facility] [address] [id number] [place] [address] December, [facility] [address] [id number] [place] [address] December, [facility] [address] [id number] [place] [address] December, [facility] [address] [id number] [place] [address] Nov, [facility] [address] [id number] [place] [address] Nov, [facility] [address] [id number] [place] [address] Nov, [facility] [address] [id number] [place] [address] Oct, [facility] [address] [id number] [place] [address] Oct, [facility] [address] [id number] [place] [address] Oct, [facility] [address] [id number] [place] [address] Oct, [facility] [address] [id number] [place] [address] Oct, [facility] [address] [id number] [place] [address] Oct, [facility] [address] [id number] [place] [address] Oct, [facility] [address] [id number] [place] [address] Oct, [facility] [address] [id number] [place] [address] Oct, [facility] [address] [id number] [place] [address] Sep, [facility] [address] [id number] [place] [address] Sep, [facility] [address] [id number] [place] [address] Aug, [facility] [address] [id number] [place] [address] Aug, [facility] [address] [id number] [place] [address] Aug, [facility] [address] [id number] [place] [address] Aug, [facility] [address] [id number] [place] [address] Jul, [facility] [address] [id number] [place] [address] Jul, [facility] [address] [id number] [place] [address] Jul, [facility] [address] [id number] [place] [address] Jul, [facility] [address] [id number] [place] [address] Jun, [facility] [address] [id number] [place] [address] Jun, [facility] [address] [id number] [place] [address] Jun, [facility] [address] [id number] [place] [address] Jun, [facility] [address] [id number] [place] [address] May, [facility] [address] [id number] [place] [address] May, [facility] [address] [id number] [place] [address] May, [facility] [address] [id number] [place] [address] 08 May, 2013 [facility] [address] [id number] [place] [address] May, [facility] [address] [id number] [place] [address] May, [facility] [address] [id number] [place] [address] Apr, [facility] [address] [id number] [place] [address] Mar, [facility] [address] [id number] [place] [address] Mar, [facility] [address] [id number] [place] [address] Mar, [facility] [address] [id number] [place] [address] Feb, [facility] [address] [id number] [place] [address] Feb, [facility] [address] [id number] [place] [address] Feb, [facility] [address] [id number] [place] [address] Jan, [facility] [address] [id number] [place] [address] Jan, [facility] [address] [id number] [place] [address] December, [facility] [address] [id number] [place] [address] December, [facility] [address] [id number] [place] [address] December, [facility] [address] [id number] [place] [address] Nov, [facility] [address] [id number] [place] [address] Nov, [facility] [address] [id number] [place] [address] 23 Nov, 2012 [facility] [address] [id number] [place] [address] 2012 [facility] [address] [id number] [place] [address] 15 Nov, 2012 [facility] [address] [id number] [place] [address] 05 Nov, 2012 [facility] [address] [id number] [place] [address] 25 Oct, 2012 [facility] [address] [id number] [place] [address] 14 Oct, 2012 [facility] [address] [id number] [place] [address] Oct, [facility] [address] [id number] [place] [address] Oct, [facility] [address] [id number] [place] [address] Sep, [facility] [address] [id number] [place] [address] Sep, [facility] [address] [id number] [place] [address] Sep, [facility] [address] [id number] [place] [address] Sep, [facility] [address] [id number] [place] [address] Sep, [facility] [address] [id number] [place] [address] Aug, [facility] [address] [id number] [place] [address] Aug, [facility] [address] [id number] [place] [address] Aug, [facility] [address] [id number] [place] [address] Aug, [facility] [address] [id number] [place] [address] Aug, [facility] [address] [id number] [place] [address] Aug, [facility] [address] [facility] [id number] [place] [address] May, [facility] [address] [id number] [place] [address] May, IMMUNIZATIONS No Known Immunizations SOCIAL HISTORY [...]
--- OUTSIDE RECORDS SUMMARY | 2020-01-16 00:19 | XMS REPORT ---
Author Author Darien VILLALOBOS Organization [facility] Address [address] [place] [address] Care Team Providers Care Budget Assistant Name Role Phone CHRISTOPHER VILLALOBOS Unavailable PROBLEMS Type Condition ICD9-CM Code [id number] Code Onset Dates Condition S tatus SNOMED Code Problem Diabetes type 1, controlled E10.9 Ac tive 64538104 Problem Type 2 diabetes mellitus with hyperglycemia E11.65 Active 823804658687448 Problem Type 1 diabetes mellitus with hyperglycemia E10.65 Active 077332404189105 Problem Uncontrolled type 1 diabetes mellitus without complication E10.9 Active 408525853 Problem Type 1 diabetes mellitus without complication E10. 9 Active 674247880 Problem Type 1 diabetes mellitus with diabetic polyneuropathy E10.42 Active 88786308 Problem Mood disorder F39 Active 081607 05 Problem Other chronic pain G89.29 Active 8 9708293 Problem Schizoaffective disorder, depressive type F25.1 Active [id number] ALLERGIES No Information ENCOUNTERS Encounter Location Date Diagnosis [place] [address] [address] Jun, [facility] [address] [address] Jun, [facility] [address] [address] Jun, [facility] [address] [address] May, Type 1 diabetes mellitus without complic ation E10.9 [facility] [address] [address] May, Type 1 diabetes mellitus without complic ation E10.9 ; Encounter for immunization Z23 and Mood disorder F39 [facility] [address] [address] December, [place] [address] [address] Nov, [place] [address] [address] Nov, Uncontrolled type 1 diabetes mellitus wi thout complication E10.9 [place] [address] [address] Nov, Impingement syndrome, shoulder, right M7 5.41 and Adhesive capsulitis of right shoulder M75.01 [place] [address] [address] Nov, Uncontrolled type 1 diabetes mellitus wi thout complication E10.9 [place] [address] [address] Oct, Uncontrolled type 1 diabetes mellitus wi thout complication E10.9 ; Other chronic pain G89.29 ; Pain in right shoulder M25.511 and Schizoaffective disorder, depressive type F25.1 [place] [address] [address] May, Mood disorder F39 and Controlled diabete s mellitus type 1 without complications E10.9 [place] [address] [address] May, [place] [address] [address] May, [place] [address] [address] Apr, Mood disorder F39 ; Type 1 diabetes jerome itus with diabetic polyneuropathy E10.42 and Type 1 diabetes mellitus with hyperglycemia E10.65 [place] [address] [address] Apr, Mood disorder F39 [place] [address] [address] Mar, [place] [address] [address] Feb, [facility] [id number] [place] [address] Jan, [facility] [address] [place] [id number] [place] [address] Jan, [facility] [address] [place] [address] [id number] [place] [address] Jan, [facility] [id number] [place] [address] December, [facility] [id number] [place] [address] December, Schizoid personality disorder in adult F 60.1 and Controlled type 1 diabetes mellitus with diabetic neuropathy, with long-term current use of insulin E10.40 [facility] [address] [place] [id number] [place] [address] December, Schizo-affective schizophrenia F25.0 [facility] [address] [id number] [place] [address] Nov, [facility] [address] [place] [address] [id number] [place] [address] Nov, Anxiety disorder, unspecified F41.9 and Schizo-affective schizophrenia F25.0 [facility] [id number] [place] [address] Nov, Schizo-affective schizophrenia F25.0 [facility] [address] [id number] [place] [address] Oct, [facility] [id number] [place] [address] Sep, [facility] [id number] [place] [address] Sep, [facility] [address] [place] [address] [id number] [place] [address] Sep, [facility] [address] [place] [id number] [place] [address] Aug, [facility] [address] [address] Aug, [facility] [address] [address] Jul, [place] [address] [address] Jul, Diabetes type 1, controlled E10.9 [place] [address] [address] Jun, Diabetes mellitus without mention of com plication, type II or unspecified type, uncontrolled 250.02 [place] [address] [address] Jun, Diabetes type 1, controlled E10.9 [place] [address] [address] May, Diabetes mellitus without mention of com plication, type II or unspecified type, uncontrolled 250.02 [place] [address] [address] May, Anxiety 300.00 [place] [address] [address] May, Diabetes type 1, controlled E10.9 ; Schi zo-affective schizophrenia F25.0 ; Mood disorder F39 and Bipolar 1 disorder F31.9 [place] [address] [address] May, [place] [address] [address] May, Anxiety F41.9 and Depression F32.[address] [address] Apr, Diabetes mellitus without mention of com plication, type II or unspecified type, uncontrolled 250.02 [place] [address] [address] Apr, Anxiety 300.00 and Diabetes mellitus wit hout mention of complication, type II or unspecified type, uncontrolled 250.02 [facility] [address] [place] [id number] [place] [address] 16 Apr, 2015 [facility] [address] [address] Apr, Anxiety 300.00 and Depression 311 [facility] [address] [address] [id number] [place] [address] Apr, Major depression, recurrent 296.30 ; Anx iety, generalized 300.02 and No condition on [place] II V71.09 [facility] [address] [address] Apr, [facility] [address] [address] Mar, Diabetes mellitus without mention of com plication, type II or unspecified type, uncontrolled 250.02 and Anxiety 300.00 [facility] [address] [address] Mar, [facility] [address] [address] Feb, [facility] [address] [address] Feb, [facility] [address] [address] Feb, [facility] [address] [address] Jan, [facility] [address] [address] Jan, [facility] [address] [address] Jan, [facility] [address] [address] Jan, [facility] [address] [place] [id number] [place] [address] December, [facility] [address] [id number] [place] [id number] December, Dental examination V72.2 [facility] [address] [place] [address] [id number] [place] [address] December, Tooth pain 525.9 [facility] [id number] [place] [address] December, [facility] [address] [address] [id number] [place] [address] Nov, [facility] [address] [address] [id number] [place] [address] Nov, [facility] [address] [id number] [place] [address] Oct, [facility] [id number] [place] [address] Oct, [facility] [address] [id number] [place] [address] Sep, [facility] [address] [id number] [place] [address] Sep, [facility] [address] [id number] [place] [address] Sep, [facility] [id number] [place] [address] Sep, [facility] [address] [id number] [place] [address] Aug, [facility] [id number] [place] [address] Aug, [facility] [address] [id number] [place] [address] Aug, [facility] [id number] [place] [address] Aug, [facility] [id number] [place] [address] Jul, [facility] [id number] [place] [address] Jul, [facility] [address] [facility] [id number] [place] [address] Jun, [facility] [id number] [place] [address] Jun, [facility] [id number] [place] [address] May, [facility] [id number] [place] [address] May, [facility] [address] [facility] [id number] [place] [address] May, [facility] [id number] [place] [address] May, [facility] [id number] [place] [address] May, [facility] [id number] [place] [address] May, [facility] [id number] [place] [address] Apr, [facility] [id number] [place] [address] Apr, [facility] [id number] [place] [address] Apr, [facility] [id number] [place] [address] Apr, [facility] [id number] [place] [address] 08 Apr, 2014 [facility] [id number] [place] [address] Apr, [facility] [id number] [place] [address] Mar, [facility] [id number] [place] [address] Mar, [facility] [id number] [place] [address] Mar, [facility] [address] [facility] [id number] [facility] [place] [address] Mar, [facility] [address] [facility] [id number] [facility] [place] [address] Feb, [facility] [id number] [place] [address] Feb, [facility] [address] [facility] [id number] [facility] [place] [address] Feb, [facility] [address] [facility] [id number] [facility] [place] [address] Feb, [facility] [address] [facility] [id number] [place] [address] Jan, [facility] [id number] [place] [address] Jan, [facility] [id number] [place] [address] Jan, [facility] [address] [facility] [id number] [place] [address] Jan, [facility] [id number] [place] [address] Jan, [facility] [id number] [place] [address] Jan, [facility] [id number] [place] [address] Jan, [facility] [address] [facility] [id number] [place] [address] Jan, [facility] [id number] [place] [address] Jan, [facility] [id number] [place] [address] Jan, [facility] [id number] [place] [address] December, [facility] [id number] [place] [address] December, [facility] [id number] [place] [address] December, [facility] [id number] [place] [address] December, [facility] [id number] [place] [address] December, [facility] [id number] [place] [address] Nov, [facility] [id number] [place] [address] Nov, [facility] [id number] [place] [address] Nov, [facility] [id number] [place] [address] Oct, [facility] [id number] [place] [address] Oct, [facility] [id number] [place] [address] Oct, [facility] [id number] [place] [address] Oct, [facility] [id number] [place] [address] Oct, [facility] [id number] [place] [address] Oct, [facility] [id number] [place] [address] Oct, [facility] [id number] [place] [address] Oct, [facility] [id number] [place] [address] Oct, [facility] [id number] [place] [address] Sep, [facility] [id number] [place] [address] Sep, [facility] [id number] [place] [address] Aug, [facility] [id number] [place] [address] Aug, [facility] [id number] [place] [address] Aug, [facility] [id number] [place] [address] Aug, [facility] [id number] [place] [address] Jul, [facility] [id number] [place] [address] Jul, [facility] [id number] [place] [address] Jul, [facility] [id number] [place] [address] Jul, [facility] [id number] [place] [address] Jun, [facility] [id number] [place] [address] Jun, [facility] [id number] [place] [address] Jun, [facility] [id number] [place] [address] Jun, [facility] [id number] [place] [address] May, [facility] [id number] [place] [address] May, [facility] [id number] [place] [address] May, [facility] [id number] [place] [address] 08 May, 2013 [facility] [id number] [place] [address] May, [facility] [id number] [place] [address] May, [facility] [id number] [place] [address] Apr, [facility] [id number] [place] [address] Mar, [facility] [id number] [place] [address] Mar, [facility] [id number] [place] [address] Mar, [facility] [id number] [place] [address] Feb, [facility] [id number] [place] [address] Feb, [facility] [id number] [place] [address] Feb, [facility] [id number] [place] [address] Jan, [facility] [id number] [place] [address] Jan, [facility] [id number] [place] [address] December, [facility] [id number] [place] [address] December, [facility] [id number] [place] [address] December, [facility] [id number] [place] [address] Nov, [facility] [id number] [place] [address] Nov, [facility] [id number] [place] [address] 23 Nov, 2012 [facility] [address] [id number] [place] [address] 2012 [facility] [id number] [place] [address] 15 Nov, 2012 [facility] [id number] [place] [address] 05 Nov, 2012 [facility] [id number] [place] [address] 25 Oct, 2012 [facility] [id number] [place] [address] 14 Oct, 2012 [facility] [id number] [place] [address] Oct, [facility] [id number] [place] [address] Oct, [facility] [id number] [place] [address] Sep, [facility] [id number] [place] [address] Sep, [facility] [id number] [place] [address] Sep, [facility] [id number] [place] [address] Sep, [facility] [id number] [place] [address] Sep, [facility] [id number] [place] [address] Aug, [facility] [id number] [place] [address] Aug, [facility] [id number] [place] [address] Aug, [facility] [id number] [place] [address] Aug, [facility] [id number] [place] [address] Aug, [facility] [id number] [place] [address] Aug, [facility] [address] [facility] [id number] [place] [address] May, [facility] [id number] [place] [address] May, IMMUNIZATIONS No Known Immunizations SOCIAL HISTORY [...]
--- OUTSIDE RECORDS SUMMARY | 2020-01-16 00:19 | XMS REPORT ---
Author Author Darien VILLALOBOS Organization [facility] Address [address] [place] [address] Care Team Providers Care Pneumatic Tube Fitter Name Role Phone CHRISTOPHER VILLALOBOS Unavailable PROBLEMS Type Condition ICD9-CM Code DPU25-QD Code Onset Dates Condition S tatus SNOMED Code Problem Diabetes type 1, controlled E10.9 Ac tive 33872322 Problem Type 2 diabetes mellitus with hyperglycemia E11.65 Active 120572165603263 Problem Type 1 diabetes mellitus with hyperglycemia E10.65 Active [id number] Problem Uncontrolled type 1 diabetes mellitus without complication E10.9 Active 498705768 Problem Type 1 diabetes mellitus without complication E10. 9 Active 183431036 Problem Type 1 diabetes mellitus with diabetic polyneuropathy E10.42 Active 30237979 Problem Mood disorder F39 Active 869475 05 Problem Other chronic pain G89.29 Active 8 5026669 Problem Schizoaffective disorder, depressive type F25.1 Active [id number] ALLERGIES No Information ENCOUNTERS Encounter Location Date Diagnosis [place] [address] [address] Jun, [facility] [address] [address] Jun, [facility] [address] [address] Jun, [facility] [address] [address] May, Type 1 diabetes mellitus without complic ation E10.9 [facility] [address] [address] May, Type 1 diabetes mellitus without complic ation E10.9 ; Encounter for immunization Z23 and Mood disorder F39 [facility] [address] [address] December, [place] [address] [address] Nov, [place] [address] [address] Nov, Uncontrolled type 1 diabetes mellitus wi thout complication E10.9 [place] [address] [address] Nov, Impingement syndrome, shoulder, right M7 5.41 and Adhesive capsulitis of right shoulder M75.01 [place] [address] [address] Nov, Uncontrolled type 1 diabetes mellitus wi thout complication E10.9 [place] [address] [address] Oct, Uncontrolled type 1 diabetes mellitus wi thout complication E10.9 ; Other chronic pain G89.29 ; Pain in right shoulder M25.511 and Schizoaffective disorder, depressive type F25.1 [place] [address] [address] May, Mood disorder F39 and Controlled diabete s mellitus type 1 without complications E10.9 [place] [address] [address] May, [place] [address] [address] May, [place] [address] [address] Apr, Mood disorder F39 ; Type 1 diabetes jerome itus with diabetic polyneuropathy E10.42 and Type 1 diabetes mellitus with hyperglycemia E10.65 [place] [address] [address] Apr, Mood disorder F39 [place] [address] [address] Mar, [place] [address] [address] Feb, [facility] [id number] [place] [address] Jan, [facility] [address] [place] [id number] [place] [address] Jan, [facility] [address] [place] [address] [id number] [place] [address] Jan, [facility] [address] [place] [id number] [place] [address] December, [facility] [address] [id number] [place] [address] December, Schizoid personality disorder in adult F 60.1 and Controlled type 1 diabetes mellitus with diabetic neuropathy, with long-term current use of insulin E10.40 [facility] [address] [place] [id number] [place] [address] December, Schizo-affective schizophrenia F25.0 [facility] [address] [place] [id number] [place] [address] Nov, [facility] [address] [place] [address] [id number] [place] [address] Nov, Anxiety disorder, unspecified F41.9 and Schizo-affective schizophrenia F25.0 [facility] [address] [place] [address] [id number] [place] [address] Nov, Schizo-affective schizophrenia F25.0 [facility] [address] [place] [address] [id number] [place] [address] Oct, [facility] [address] [place] [address] [id number] [place] [address] Sep, [facility] [address] [place] [address] [id number] [place] [address] Sep, [facility] [address] [place] [address] [id number] [place] [address] Sep, [facility] [address] [place] [id number] [place] [address] Aug, [facility] [address] [address] Aug, [facility] [address] [address] Jul, [place] [address] [address] Jul, Diabetes type 1, controlled E10.9 [place] [address] [address] Jun, Diabetes mellitus without mention of com plication, type II or unspecified type, uncontrolled 250.02 [place] [address] [address] Jun, Diabetes type 1, controlled E10.9 [place] [address] [address] May, Diabetes mellitus without mention of com plication, type II or unspecified type, uncontrolled 250.02 [place] [address] [address] May, Anxiety 300.00 [place] [address] [address] May, Diabetes type 1, controlled E10.9 ; Schi zo-affective schizophrenia F25.0 ; Mood disorder F39 and Bipolar 1 disorder F31.9 [place] [address] [address] May, [place] [address] [address] May, Anxiety F41.9 and Depression F32.[address] [address] Apr, Diabetes mellitus without mention of com plication, type II or unspecified type, uncontrolled 250.02 [place] [address] [address] Apr, Anxiety 300.00 and Diabetes mellitus wit hout mention of complication, type II or unspecified type, uncontrolled 250.02 [facility] [address] [id number] [place] [address] 16 Apr, 2015 [facility] [address] [address] Apr, Anxiety 300.00 and Depression 311 [facility] [address] [id number] [place] [address] Apr, Major depression, recurrent 296.30 ; Anx iety, generalized 300.02 and No condition on Sparkman II V71.09 [facility] [address] [address] Apr, [facility] [address] [address] Mar, Diabetes mellitus without mention of com plication, type II or unspecified type, uncontrolled 250.02 and Anxiety 300.00 [facility] [address] [address] Mar, [facility] [address] [address] Feb, [facility] [address] [address] Feb, [facility] [address] [address] Feb, [facility] [address] [address] Jan, [facility] [address] [address] Jan, [facility] [address] [address] Jan, [facility] [address] [address] Jan, [facility] [address] [address] [id number] [place] [address] December, [facility] [address] [place] [id number] [place] [id number] December, Dental examination V72.2 [facility] [address] [place] [id number] [place] [address] December, Tooth pain 525.9 [facility] [id number] [place] [address] December, [facility] [address] [place] [id number] [place] [address] Nov, [facility] [address] [place] [id number] [place] [address] Nov, [facility] [address] [place] [id number] [place] [address] Oct, [facility] [address] [place] [id number] [place] [address] Oct, [facility] [address] [place] [id number] [place] [address] Sep, [facility] [address] [place] [id number] [place] [address] Sep, [facility] [address] [place] [address] [id number] [place] [address] Sep, [facility] [address] [place] [id number] [place] [address] Sep, [facility] [address] [place] [id number] [place] [address] Aug, [facility] [address] [place] [id number] [place] [address] Aug, [facility] [address] [place] [id number] [place] [address] Aug, [facility] [address] [place] [id number] [place] [address] Aug, [facility] [address] [place] [id number] [place] [address] Jul, [facility] [address] [place] [id number] [place] [address] Jul, [facility] [address] [facility] [id number] [place] [address] Jun, [facility] [id number] [place] [address] Jun, [facility] [id number] [place] [address] May, [facility] [id number] [place] [address] May, [facility] [address] [facility] [id number] [place] [address] May, [facility] [id number] [place] [address] May, [facility] [id number] [place] [address] May, [facility] [id number] [place] [address] May, [facility] [id number] [place] [address] Apr, [facility] [id number] [place] [address] Apr, [facility] [id number] [place] [address] Apr, [facility] [id number] [place] [address] Apr, [facility] [id number] [place] [address] 08 Apr, 2014 [facility] [id number] [place] [address] Apr, [facility] [id number] [place] [address] Mar, [facility] [id number] [place] [address] Mar, [facility] [id number] [place] [address] Mar, [facility] [address] [facility] [id number] [facility] [place] [address] Mar, [facility] [address] [facility] [id number] [facility] [place] [address] Feb, [facility] [id number] [place] [address] Feb, [facility] [address] [facility] [id number] [facility] [place] [address] Feb, [facility] [address] [facility] [id number] [facility] [place] [address] Feb, [facility] [address] [facility] [id number] [place] [address] Jan, [facility] [id number] [place] [address] Jan, [facility] [id number] [place] [address] Jan, [facility] [address] [facility] [id number] [place] [address] Jan, [facility] [id number] [place] [address] Jan, [facility] [id number] [place] [address] Jan, [facility] [id number] [place] [address] Jan, [facility] [address] [facility] [id number] [place] [address] Jan, [facility] [id number] [place] [address] Jan, [facility] [id number] [place] [address] Jan, [facility] [id number] [place] [address] December, [facility] [id number] [place] [address] December, [facility] [id number] [place] [address] December, [facility] [id number] [place] [address] December, [facility] [id number] [place] [address] December, [facility] [id number] [place] [address] Nov, [facility] [id number] [place] [address] Nov, [facility] [id number] [place] [address] Nov, [facility] [id number] [place] [address] Oct, [facility] [id number] [place] [address] Oct, [facility] [id number] [place] [address] Oct, [facility] [id number] [place] [address] Oct, [facility] [id number] [place] [address] Oct, [facility] [id number] [place] [address] Oct, [facility] [id number] [place] [address] Oct, [facility] [id number] [place] [address] Oct, [facility] [id number] [place] [address] Oct, [facility] [id number] [place] [address] Sep, [facility] [id number] [place] [address] Sep, [facility] [id number] [place] [address] Aug, [facility] [id number] [place] [address] Aug, [facility] [id number] [place] [address] Aug, [facility] [id number] [place] [address] Aug, [facility] [id number] [place] [address] Jul, [facility] [id number] [place] [address] Jul, [facility] [id number] [place] [address] Jul, [facility] [id number] [place] [address] Jul, [facility] [id number] [place] [address] Jun, [facility] [id number] [place] [address] Jun, [facility] [id number] [place] [address] Jun, [facility] [id number] [place] [address] Jun, [facility] [id number] [place] [address] May, [facility] [id number] [place] [address] May, [facility] [id number] [place] [address] May, [facility] [id number] [place] [address] 08 May, 2013 [facility] [id number] [place] [address] May, [facility] [id number] [place] [address] May, [facility] [id number] [place] [address] Apr, [facility] [id number] [place] [address] Mar, [facility] [id number] [place] [address] Mar, [facility] [id number] [place] [address] Mar, [facility] [id number] [place] [address] Feb, [facility] [id number] [place] [address] Feb, [facility] [id number] [place] [address] Feb, [facility] [id number] [place] [address] Jan, [facility] [id number] [place] [address] Jan, [facility] [id number] [place] [address] December, [facility] [id number] [place] [address] December, [facility] [id number] [place] [address] December, [facility] [id number] [place] [address] Nov, [facility] [id number] [place] [address] Nov, [facility] [id number] [place] [address] 23 Nov, 2012 [facility] [address] [id number] [place] [address] 2012 [facility] [id number] [place] [address] 15 Nov, 2012 [facility] [id number] [place] [address] 05 Nov, 2012 [facility] [id number] [place] [address] 25 Oct, 2012 [facility] [id number] [place] [address] 14 Oct, 2012 [facility] [id number] [place] [address] Oct, [facility] [id number] [place] [address] Oct, [facility] [id number] [place] [address] Sep, [facility] [id number] [place] [address] Sep, [facility] [id number] [place] [address] Sep, [facility] [id number] [place] [address] Sep, [facility] [id number] [place] [address] Sep, [facility] [id number] [place] [address] Aug, [facility] [id number] [place] [address] Aug, [facility] [id number] [place] [address] Aug, [facility] [id number] [place] [address] Aug, [facility] [id number] [place] [address] Aug, [facility] [id number] [place] [address] Aug, [facility] [id number] [place] [address] May, [facility] [id number] [place] [address] May, IMMUNIZATIONS No Known Immunizations SOCIAL HISTORY Never Assessed REASON FOR VISIT PLAN OF CARE VITAL SIGNS Height 69 in 2013-11-15 Weight 158.7 lbs 2013-11-15 Temperature 97.3 degrees Fahrenheit 2013-11-15 Heart Rate 110 bpm 2013-11-15 Respiratory Rate 18 2013-11-15 Blood pressure systolic 128 mmHg 2013-11-15 Blood pressure diastolic 84 mmHg 2013-11-15 MEDICATIONS Unknown Medications RESULTS No Results PROCEDURES No Known procedures INSTRUCTIONS MEDICATIONS ADMINISTERED No Known Medications MEDICAL (GENERAL) HISTORY Type Description Date Medical History type I diabetes Medical History hx of MRSA infections Medical History depression Medical History anxiety Surgical History I & D-MRSA Hospitalization History MRSA 2003
--- OUTSIDE RECORDS SUMMARY | 2020-01-16 00:19 | XMS REPORT ---
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 9 Active 974890865 Problem Type 1 diabetes mellitus with diabetic polyneuropathy E10.42 Active 78408271 Problem Mood disorder F39 Active 851764 05 Problem Other chronic pain G89.29 Active 8 0337001 Problem Schizoaffective disorder, depressive type F25.1 Active 62911125 ALLERGIES No Information ENCOUNTERS Encounter Location Date Diagnosis [place] [address] [address] Jun, [facility] [address] [address] Jun, [facility] [address] [address] Jun, [facility] [address] [address] May, Type 1 diabetes mellitus without complic ation E10.9 [facility] [address] [address] May, Type 1 diabetes mellitus without complic ation E10.9 ; Encounter for immunization Z23 and Mood disorder F39 [facility] [address] [address] December, [place] [address] [address] Nov, [place] [address] [address] Nov, Uncontrolled type 1 diabetes mellitus wi thout complication E10.9 [place] [address] [address] Nov, Impingement syndrome, shoulder, right M7 5.41 and Adhesive capsulitis of right shoulder M75.01 [place] [address] [address] Nov, Uncontrolled type 1 diabetes mellitus wi thout complication E10.9 [place] [address] [address] Oct, Uncontrolled type 1 diabetes mellitus wi thout complication E10.9 ; Other chronic pain G89.29 ; Pain in right shoulder M25.511 and Schizoaffective disorder, depressive type F25.1 [place] [address] [address] May, Mood disorder F39 and Controlled diabete s mellitus type 1 without complications E10.9 [place] [address] [address] May, [place] [address] [address] May, [place] [address] [address] Apr, Mood disorder F39 ; Type 1 diabetes jerome itus with diabetic polyneuropathy E10.42 and Type 1 diabetes mellitus with hyperglycemia E10.65 [place] [address] [address] Apr, Mood disorder F39 [place] [address] [address] Mar, [place] [address] [address] Feb, [facility] [address] [id number] [place] [address] Jan, [facility] [address] [place] [id number] [place] [address] Jan, [facility] [address] [place] [address] [id number] [place] [address] Jan, [facility] [id number] [place] [address] December, [facility] [address] [id number] [place] [address] December, Schizoid personality disorder in adult F 60.1 and Controlled type 1 diabetes mellitus with diabetic neuropathy, with long-term current use of insulin E10.40 [facility] [address] [place] [id number] [place] [address] December, Schizo-affective schizophrenia F25.0 [facility] [address] [place] [address] [id number] [place] [address] Nov, [facility] [address] [place] [address] [id number] [place] [address] Nov, Anxiety disorder, unspecified F41.9 and Schizo-affective schizophrenia F25.0 [facility] [address] [place] [address] [id number] [place] [address] Nov, Schizo-affective schizophrenia F25.0 [facility] [address] [address] [id number] [place] [address] Oct, [facility] [id number] [place] [address] Sep, [facility] [address] [id number] [place] [address] Sep, [facility] [id number] [place] [address] Sep, [facility] [address] [id number] [place] [address] Aug, [facility] [address] [address] Aug, [facility] [address] [address] Jul, [place] [address] [address] Jul, Diabetes type 1, controlled E10.9 [place] [address] [address] Jun, Diabetes mellitus without mention of com plication, type II or unspecified type, uncontrolled 250.02 [place] [address] [address] Jun, Diabetes type 1, controlled E10.9 [place] [address] [address] May, Diabetes mellitus without mention of com plication, type II or unspecified type, uncontrolled 250.02 [place] [address] [address] May, Anxiety 300.00 [place] [address] [address] May, Diabetes type 1, controlled E10.9 ; Schi zo-affective schizophrenia F25.0 ; Mood disorder F39 and Bipolar 1 disorder F31.9 [place] [address] [address] May, [place] [address] [address] May, Anxiety F41.9 and Depression F32.[address] [address] Apr, Diabetes mellitus without mention of com plication, type II or unspecified type, uncontrolled 250.02 [place] [address] [address] Apr, Anxiety 300.00 and Diabetes mellitus wit hout mention of complication, type II or unspecified type, uncontrolled 250.02 [facility] [address] [place] [address] [id number] [place] [address] 16 Apr, 2015 [facility] [address] [address] Apr, Anxiety 300.00 and Depression 311 [facility] [address] [place] [id number] [place] [address] Apr, Major depression, recurrent 296.30 ; Anx iety, generalized 300.02 and No condition on Vaiden II V71.09 [facility] [address] [address] Apr, [facility] [address] [address] Mar, Diabetes mellitus without mention of com plication, type II or unspecified type, uncontrolled 250.02 and Anxiety 300.00 [facility] [address] [address] Mar, [facility] [address] [address] Feb, [facility] [address] [address] Feb, [facility] [address] [address] Feb, [facility] [address] [address] Jan, [facility] [address] [address] Jan, [facility] [address] [address] Jan, [facility] [address] [address] Jan, [facility] [address] [place] [id number] [place] [address] December, [facility] [id number] [place] [id number] December, Dental examination V72.2 [facility] [address] [id number] [place] [address] December, Tooth pain 525.9 [facility] [address] [id number] [place] [address] December, [facility] [address] [id number] [place] [address] Nov, [facility] [id number] [place] [address] Nov, [facility] [address] [id number] [place] [address] Oct, [facility] [address] [id number] [place] [address] Oct, [facility] [id number] [place] [address] Sep, [facility] [id number] [place] [address] Sep, [facility] [id number] [place] [address] Sep, [facility] [id number] [place] [address] Sep, [facility] [id number] [place] [address] Aug, [facility] [id number] [place] [address] Aug, [facility] [id number] [place] [address] Aug, [facility] [id number] [place] [address] Aug, [facility] [id number] [place] [address] Jul, [facility] [id number] [place] [address] Jul, [facility] [address] [facility] [id number] [place] [address] Jun, [facility] [address] [id number] [place] [address] Jun, [facility] [address] [id number] [place] [address] May, [facility] [address] [id number] [place] [address] May, [facility] [address] [facility] [id number] [place] [address] May, [facility] [address] [id number] [place] [address] May, [facility] [address] [id number] [place] [address] May, [facility] [address] [id number] [place] [address] May, [facility] [address] [id number] [place] [address] Apr, [facility] [address] [id number] [place] [address] Apr, [facility] [address] [id number] [place] [address] Apr, [facility] [address] [id number] [place] [address] Apr, [facility] [address] [id number] [place] [address] 08 Apr, 2014 [facility] [address] [id number] [place] [address] Apr, [facility] [address] [id number] [place] [address] Mar, [facility] [address] [id number] [place] [address] Mar, [facility] [address] [id number] [place] [address] Mar, [facility] [address] [facility] [id number] [facility] [place] [address] Mar, [facility] [address] [facility] [id number] [facility] [place] [address] Feb, [facility] [address] [id number] [place] [address] Feb, [facility] [address] [facility] [id number] [facility] [place] [address] Feb, [facility] [address] [facility] [id number] [facility] [place] [address] Feb, [facility] [address] [facility] [id number] [place] [address] Jan, [facility] [address] [id number] [place] [address] Jan, [facility] [address] [id number] [place] [address] Jan, [facility] [address] [facility] [id number] [place] [address] Jan, [facility] [address] [id number] [place] [address] Jan, [facility] [address] [id number] [place] [address] Jan, [facility] [address] [id number] [place] [address] Jan, [facility] [address] [facility] [id number] [place] [address] Jan, [facility] [address] [id number] [place] [address] Jan, [facility] [address] [id number] [place] [address] Jan, [facility] [address] [id number] [place] [address] December, [facility] [address] [id number] [place] [address] December, [facility] [address] [id number] [place] [address] December, [facility] [address] [id number] [place] [address] December, [facility] [address] [id number] [place] [address] December, [facility] [address] [id number] [place] [address] Nov, [facility] [address] [id number] [place] [address] Nov, [facility] [address] [id number] [place] [address] Nov, [facility] [address] [id number] [place] [address] Oct, [facility] [address] [id number] [place] [address] Oct, [facility] [address] [id number] [place] [address] Oct, [facility] [address] [id number] [place] [address] Oct, [facility] [address] [id number] [place] [address] Oct, [facility] [address] [id number] [place] [address] Oct, [facility] [address] [id number] [place] [address] Oct, [facility] [address] [id number] [place] [address] Oct, [facility] [address] [id number] [place] [address] Oct, [facility] [address] [id number] [place] [address] Sep, [facility] [address] [id number] [place] [address] Sep, [facility] [address] [id number] [place] [address] Aug, [facility] [address] [id number] [place] [address] Aug, [facility] [address] [id number] [place] [address] Aug, [facility] [address] [id number] [place] [address] Aug, [facility] [address] [id number] [place] [address] Jul, [facility] [address] [id number] [place] [address] Jul, [facility] [id number] [place] [address] Jul, [facility] [address] [id number] [place] [address] Jul, [facility] [address] [id number] [place] [address] Jun, [facility] [address] [id number] [place] [address] Jun, [facility] [address] [id number] [place] [address] Jun, [facility] [address] [id number] [place] [address] Jun, [facility] [address] [id number] [place] [address] May, [facility] [address] [id number] [place] [address] May, [facility] [address] [id number] [place] [address] May, [facility] [address] [id number] [place] [address] 08 May, 2013 [facility] [address] [id number] [place] [address] May, [facility] [address] [id number] [place] [address] May, [facility] [address] [id number] [place] [address] Apr, [facility] [address] [id number] [place] [address] Mar, [facility] [address] [id number] [place] [address] Mar, [facility] [address] [id number] [place] [address] Mar, [facility] [address] [id number] [place] [address] Feb, [facility] [address] [id number] [place] [address] Feb, [facility] [address] [id number] [place] [address] Feb, [facility] [address] [id number] [place] [address] Jan, [facility] [address] [id number] [place] [address] Jan, [facility] [address] [id number] [place] [address] December, [facility] [address] [id number] [place] [address] December, [facility] [address] [id number] [place] [address] December, [facility] [address] [id number] [place] [address] Nov, [facility] [address] [id number] [place] [address] Nov, [facility] [address] [id number] [place] [address] 23 Nov, 2012 [facility] [address] [id number] [place] [address] 2012 [facility] [address] [id number] [place] [address] 15 Nov, 2012 [facility] [address] [id number] [place] [address] 05 Nov, 2012 [facility] [address] [id number] [place] [address] 25 Oct, 2012 [facility] [address] [id number] [place] [address] 14 Oct, 2012 [facility] [address] [id number] [place] [address] Oct, [facility] [address] [id number] [place] [address] Oct, [facility] [address] [id number] [place] [address] Sep, [facility] [address] [id number] [place] [address] Sep, [facility] [address] [id number] [place] [address] Sep, [facility] [address] [id number] [place] [address] Sep, [facility] [address] [id number] [place] [address] Sep, [facility] [address] [id number] [place] [address] Aug, [facility] [address] [id number] [place] [address] Aug, [facility] [address] [id number] [place] [address] Aug, [facility] [address] [id number] [place] [address] Aug, [facility] [address] [id number] [place] [address] Aug, [facility] [address] [id number] [place] [address] Aug, [facility] [address] [id number] [place] [address] May, [facility] [address] [id number] [place] [address] May, IMMUNIZATIONS No Known Immunizations SOCIAL HISTORY Never Assessed REASON FOR VISIT PLAN OF CARE VITAL SIGNS Height 69 in 2013-10-16 Weight 150.4 lbs 2013-10-16 Temperature 96.8 degrees Fahrenheit 2013-10-16 Heart Rate 88 bpm 2013-10-16 Respiratory Rate 20 2013-10-16 Blood pressure systolic 110 mmHg 2013-10-16 Blood pressure diastolic 60 mmHg 2013-10-16 MEDICATIONS Unknown Medications RESULTS No Results PROCEDURES No Known procedures INSTRUCTIONS MEDICATIONS ADMINISTERED No Known Medications MEDICAL (GENERAL) HISTORY Type Description Date Medical History type I diabetes Medical History hx of MRSA infections Medical History depression Medical History anxiety Surgical History I & D-MRSA Hospitalization History MRSA 2003
--- OUTSIDE RECORDS SUMMARY | 2020-01-16 00:19 | XMS REPORT ---
Author Author Darien VILLALOBOS Organization [facility] Address [address] [place] [address] Care Team Providers Care Health [facility] Manager Name Role Phone CHRISTOPHER VILLALOBOS Unavailable PROBLEMS Type Condition ICD9-CM Code [id number] Code Onset Dates Condition S tatus SNOMED Code Problem Diabetes type 1, controlled E10.9 Ac tive 42397881 Problem Type 2 diabetes mellitus with hyperglycemia E11.65 Active 512397091709997 Problem Type 1 diabetes mellitus with hyperglycemia E10.65 Active [id number] Problem Uncontrolled type 1 diabetes mellitus without complication E10.9 Active 649433296 Problem Type 1 diabetes mellitus without complication E10. 9 Active 393327996 Problem Type 1 diabetes mellitus with diabetic polyneuropathy E10.42 Active 69352172 Problem Mood disorder F39 Active 863649 05 Problem Other chronic pain G89.29 Active 8 2519965 Problem Schizoaffective disorder, depressive type F25.1 Active [id number] ALLERGIES No Information ENCOUNTERS Encounter Location Date Diagnosis [place] [address] [address] Jun, [facility] [address] [address] Jun, [facility] [address] [address] Jun, [facility] [address] [address] May, Type 1 diabetes mellitus without complic ation E10.9 [facility] [address] [address] May, Type 1 diabetes mellitus without complic ation E10.9 ; Encounter for immunization Z23 and Mood disorder F39 [facility] [address] [address] December, [place] [address] [address] Nov, [place] [address] [address] Nov, Uncontrolled type 1 diabetes mellitus wi thout complication E10.9 [place] [address] [address] Nov, Impingement syndrome, shoulder, right M7 5.41 and Adhesive capsulitis of right shoulder M75.01 [place] [address] [address] Nov, Uncontrolled type 1 diabetes mellitus wi thout complication E10.9 [place] [address] [address] Oct, Uncontrolled type 1 diabetes mellitus wi thout complication E10.9 ; Other chronic pain G89.29 ; Pain in right shoulder M25.511 and Schizoaffective disorder, depressive type F25.1 [place] [address] [address] May, Mood disorder F39 and Controlled diabete s mellitus type 1 without complications E10.9 [place] [address] [address] May, [place] [address] [address] May, [place] [address] [address] Apr, Mood disorder F39 ; Type 1 diabetes jerome itus with diabetic polyneuropathy E10.42 and Type 1 diabetes mellitus with hyperglycemia E10.65 [place] [address] [address] Apr, Mood disorder F39 [place] [address] [address] Mar, [place] [address] [address] Feb, [facility] [address] [id number] [place] [address] Jan, [facility] [address] [place] [id number] [place] [address] Jan, [facility] [address] [place] [address] [id number] [place] [address] Jan, [facility] [address] [place] [id number] [place] [address] December, [facility] [address] [place] [id number] [place] [address] December, Schizoid personality disorder in adult F 60.1 and Controlled type 1 diabetes mellitus with diabetic neuropathy, with long-term current use of insulin E10.40 [facility] [address] [place] [address] [id number] [place] [address] December, Schizo-affective schizophrenia F25.0 [facility] [address] [place] [id number] [place] [address] Nov, [facility] [address] [place] [address] [id number] [place] [address] Nov, Anxiety disorder, unspecified F41.9 and Schizo-affective schizophrenia F25.0 [facility] [address] [place] [address] [id number] [place] [address] Nov, Schizo-affective schizophrenia F25.0 [facility] [address] [place] [address] [id number] [place] [address] Oct, [facility] [address] [place] [address] [id number] [place] [address] Sep, [facility] [address] [place] [id number] [place] [address] Sep, [facility] [address] [place] [id number] [place] [address] Sep, [facility] [address] [place] [id number] [place] [address] Aug, [facility] [address] [address] Aug, [facility] [address] [address] Jul, [place] [address] [address] Jul, Diabetes type 1, controlled E10.9 [place] [address] [address] Jun, Diabetes mellitus without mention of com plication, type II or unspecified type, uncontrolled 250.02 [place] [address] [address] Jun, Diabetes type 1, controlled E10.9 [place] [address] [address] May, Diabetes mellitus without mention of com plication, type II or unspecified type, uncontrolled 250.02 [place] [address] [address] May, Anxiety 300.00 [place] [address] [address] May, Diabetes type 1, controlled E10.9 ; Schi zo-affective schizophrenia F25.0 ; Mood disorder F39 and Bipolar 1 disorder F31.9 [place] [address] [address] May, [place] [address] [address] May, Anxiety F41.9 and Depression F32.[address] [address] Apr, Diabetes mellitus without mention of com plication, type II or unspecified type, uncontrolled 250.02 [place] [address] [address] Apr, Anxiety 300.00 and Diabetes mellitus wit hout mention of complication, type II or unspecified type, uncontrolled 250.02 [facility] [address] [place] [id number] [place] [address] 16 Apr, 2015 [facility] [address] [address] Apr, Anxiety 300.00 and Depression 311 [facility] [address] [place] [address] [id number] [place] [address] Apr, Major depression, recurrent 296.30 ; Anx iety, generalized 300.02 and No condition on Winston II V71.09 [facility] [address] [address] Apr, [facility] [address] [address] Mar, Diabetes mellitus without mention of com plication, type II or unspecified type, uncontrolled 250.02 and Anxiety 300.00 [facility] [address] [address] Mar, [facility] [address] [address] Feb, [facility] [address] [address] Feb, [facility] [address] [address] Feb, [facility] [address] [address] Jan, [facility] [address] [address] Jan, [facility] [address] [address] Jan, [facility] [address] [address] Jan, [facility] [address] [place] [address] [id number] [place] [address] December, [facility] [id number] [place] [id number] December, Dental examination V72.2 [facility] [id number] [place] [address] December, Tooth pain 525.9 [facility] [address] [id number] [place] [address] December, [facility] [address] [place] [id number] [place] [address] Nov, [facility] [address] [place] [id number] [place] [address] Nov, [facility] [address] [place] [address] [id number] [place] [address] Oct, [facility] [address] [place] [address] [id number] [place] [address] Oct, [facility] [address] [place] [id number] [place] [address] Sep, [facility] [address] [place] [id number] [place] [address] Sep, [facility] [address] [place] [id number] [place] [address] Sep, [facility] [address] [place] [id number] [place] [address] Sep, [facility] [address] [place] [id number] [place] [address] Aug, [facility] [address] [place] [id number] [place] [address] Aug, [facility] [address] [place] [address] [id number] [place] [address] Aug, [facility] [address] [place] [address] [id number] [place] [address] Aug, [facility] [address] [place] [id number] [place] [address] Jul, [facility] [address] [place] [id number] [place] [address] Jul, [facility] [address] [facility] [id number] [place] [address] Jun, [facility] [address] [id number] [place] [address] Jun, [facility] [address] [id number] [place] [address] May, [facility] [address] [id number] [place] [address] May, [facility] [address] [facility] [id number] [place] [address] May, [facility] [address] [id number] [place] [address] May, [facility] [address] [id number] [place] [address] May, [facility] [address] [id number] [place] [address] May, [facility] [address] [id number] [place] [address] Apr, [facility] [address] [id number] [place] [address] Apr, [facility] [address] [id number] [place] [address] Apr, [facility] [address] [id number] [place] [address] Apr, [facility] [address] [id number] [place] [address] 08 Apr, 2014 [facility] [address] [id number] [place] [address] Apr, [facility] [address] [id number] [place] [address] Mar, [facility] [address] [id number] [place] [address] Mar, [facility] [address] [id number] [place] [address] Mar, [facility] [address] [facility] [id number] [facility] [place] [address] Mar, [facility] [address] [facility] [id number] [facility] [place] [address] Feb, [facility] [address] [id number] [place] [address] Feb, [facility] [address] [facility] [id number] [facility] [place] [address] Feb, [facility] [address] [facility] [id number] [facility] [address] Feb, [facility] [address] [facility] [id number] [place] [address] Jan, [facility] [address] [id number] [place] [address] Jan, [facility] [address] [id number] [place] [address] Jan, [facility] [address] [facility] [id number] [place] [address] Jan, [facility] [address] [id number] [place] [address] Jan, [facility] [address] [id number] [place] [address] Jan, [facility] [address] [id number] [place] [address] Jan, [facility] [address] [facility] [id number] [place] [address] Jan, [facility] [address] [id number] [place] [address] Jan, [facility] [address] [id number] [place] [address] Jan, [facility] [address] [id number] [place] [address] December, [facility] [address] [id number] [place] [address] December, [facility] [address] [id number] [place] [address] December, [facility] [address] [id number] [place] [address] December, [facility] [address] [id number] [place] [address] December, [facility] [address] [id number] [place] [address] Nov, [facility] [address] [id number] [place] [address] Nov, [facility] [address] [id number] [place] [address] Nov, [facility] [address] [id number] [place] [address] Oct, [facility] [address] [id number] [place] [address] Oct, [facility] [address] [id number] [place] [address] Oct, [facility] [address] [id number] [place] [address] Oct, [facility] [address] [id number] [place] [address] Oct, [facility] [address] [id number] [place] [address] Oct, [facility] [address] [id number] [place] [address] Oct, [facility] [address] [id number] [place] [address] Oct, [facility] [address] [id number] [place] [address] Oct, [facility] [address] [id number] [place] [address] Sep, [facility] [address] [id number] [place] [address] Sep, [facility] [address] [id number] [place] [address] Aug, [facility] [address] [id number] [place] [address] Aug, [facility] [address] [id number] [place] [address] Aug, [facility] [address] [id number] [place] [address] Aug, [facility] [address] [id number] [place] [address] Jul, [facility] [address] [id number] [place] [address] Jul, [facility] [id number] [place] [address] Jul, [facility] [address] [id number] [place] [address] Jul, [facility] [address] [id number] [place] [address] Jun, [facility] [address] [id number] [place] [address] Jun, [facility] [address] [id number] [place] [address] Jun, [facility] [address] [id number] [place] [address] Jun, [facility] [address] [id number] [place] [address] May, [facility] [address] [id number] [place] [address] May, [facility] [address] [id number] [place] [address] May, [facility] [address] [id number] [place] [address] 08 May, 2013 [facility] [address] [id number] [place] [address] May, [facility] [address] [id number] [place] [address] May, [facility] [address] [id number] [place] [address] Apr, [facility] [address] [id number] [place] [address] Mar, [facility] [address] [id number] [place] [address] Mar, [facility] [address] [id number] [place] [address] Mar, [facility] [address] [id number] [place] [address] Feb, [facility] [address] [id number] [place] [address] Feb, [facility] [address] [id number] [place] [address] Feb, [facility] [address] [id number] [place] [address] Jan, [facility] [address] [id number] [place] [address] Jan, [facility] [address] [id number] [place] [address] December, [facility] [address] [id number] [place] [address] December, [facility] [address] [id number] [place] [address] December, [facility] [address] [id number] [place] [address] Nov, [facility] [address] [id number] [place] [address] Nov, [facility] [address] [id number] [place] [address] 23 Nov, 2012 [facility] [address] [id number] [place] [address] 2012 [facility] [address] [id number] [place] [address] 15 Nov, 2012 [facility] [address] [id number] [place] [address] 05 Nov, 2012 [facility] [address] [id number] [place] [address] 25 Oct, 2012 [facility] [address] [id number] [place] [address] 14 Oct, 2012 [facility] [address] [id number] [place] [address] Oct, [facility] [address] [id number] [place] [address] Oct, [facility] [address] [id number] [place] [address] Sep, [facility] [address] [id number] [place] [address] Sep, [facility] [address] [id number] [place] [address] Sep, [facility] [address] [id number] [place] [address] Sep, [facility] [address] [id number] [place] [address] Sep, [facility] [address] [id number] [place] [address] Aug, [facility] [address] [id number] [place] [address] Aug, [facility] [address] [id number] [place] [address] Aug, [facility] [address] [id number] [place] [address] Aug, [facility] [address] [id number] [place] [address] Aug, [facility] [address] [id number] [place] [address] Aug, [facility] [address] [facility] [id number] [place] [address] May, [facility] [address] [id number] [place] [address] May, IMMUNIZATIONS No Known Immunizations SOCIAL HISTORY [...]
--- OUTSIDE RECORDS SUMMARY | 2020-01-16 00:20 | XMS REPORT ---
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 9 Active 644173712 Problem Type 1 diabetes mellitus with diabetic polyneuropathy E10.42 Active 83654151 Problem Mood disorder F39 Active 477582 05 Problem Other chronic pain G89.29 Active 8 4116085 Problem Schizoaffective disorder, depressive type F25.1 Active [id number] ALLERGIES No Information ENCOUNTERS Encounter Location Date Diagnosis [place] [address] [address] Jun, [place] [address] [address] Jun, [place] [address] [address] Jun, [facility] [address] [address] May, Type 1 diabetes mellitus without complic ation E10.9 [place] [address] [address] May, Type 1 diabetes mellitus without complic ation E10.9 ; Encounter for immunization Z23 and Mood disorder F39 [place] [address] [address] December, [facility] [address] [address] Nov, [facility] [address] [address] Nov, Uncontrolled type 1 diabetes mellitus wi thout complication E10.9 [place] [address] [address] Nov, Impingement syndrome, shoulder, right M7 5.41 and Adhesive capsulitis of right shoulder M75.01 [place] [address] [address] Nov, Uncontrolled type 1 diabetes mellitus wi thout complication E10.9 [place] [address] [address] Oct, Uncontrolled type 1 diabetes mellitus wi thout complication E10.9 ; Other chronic pain G89.29 ; Pain in right shoulder M25.511 and Schizoaffective disorder, depressive type F25.1 [place] [address] [address] May, Mood disorder F39 and Controlled diabete s mellitus type 1 without complications E10.9 [place] [address] [address] May, [place] [address] [address] May, [facility] [address] [address] Apr, Mood disorder F39 ; Type 1 diabetes jerome itus with diabetic polyneuropathy E10.42 and Type 1 diabetes mellitus with hyperglycemia E10.65 [place] [address] [address] Apr, Mood disorder F39 [facility] [address] [address] Mar, [facility] [address] [address] Feb, [facility] [address] [place] [id number] [place] [address] Jan, [facility] [id number] [place] [address] Jan, [facility] [address] [place] [id number] [place] [address] Jan, [facility] [address] [address] December, [facility] [address] [address] December, Schizoid personality disorder in adult F 60.1 and Controlled type 1 diabetes mellitus with diabetic neuropathy, with long-term current use of insulin E10.40 [facility] [address] [id number] [place] [address] December, Schizo-affective schizophrenia F25.0 [facility] [address] [address] Nov, [facility] [address] [address] Nov, Anxiety disorder, unspecified F41.9 and Schizo-affective schizophrenia F25.0 [facility] [address] [place] [id number] [place] [address] Nov, Schizo-affective schizophrenia F25.0 [facility] [address] [id number] [place] [address] Oct, [facility] [address] [address] [id number] [place] [address] Sep, [facility] [address] [address] Sep, [facility] [address] [address] Sep, [facility] [address] [address] Aug, [place] [address] [address] Aug, [place] [address] [address] Jul, [place] [address] [address] Jul, Diabetes type 1, controlled E10.9 [place] [address] [address] Jun, Diabetes mellitus without mention of com plication, type II or unspecified type, uncontrolled 250.02 [place] [address] [address] Jun, Diabetes type 1, controlled E10.9 [place] [address] [address] May, Diabetes mellitus without mention of com plication, type II or unspecified type, uncontrolled 250.02 [place] [address] [address] May, Anxiety 300.[address] [address] May, Diabetes type 1, controlled E10.9 ; Schi zo-affective schizophrenia F25.0 ; Mood disorder F39 and Bipolar [address] disorder [address]31.[address] [address] May, [place] [address] [address] May, Anxiety F41.9 and Depression F32.[address] [address] Apr, Diabetes mellitus without mention of com plication, type II or unspecified type, uncontrolled 250.02 [place] [address] [address] Apr, Anxiety 300.00 and Diabetes mellitus wit hout mention of complication, type II or unspecified type, uncontrolled 250.02 [facility] [address] [place] [id number] [place] [address] Apr, [facility] [address] [address] Apr, Anxiety 300.00 and Depression 311 [facility] [address] [place] [id number] [place] [address] Apr, Major depression, recurrent 296.30 ; Anx iety, generalized 300.02 and No condition on [place] II V71.09 [facility] [address] [place] [id number] [place] [address] Apr, [facility] [address] [address] Mar, Diabetes mellitus without mention of com plication, type II or unspecified type, uncontrolled 250.02 and Anxiety 300.00 [facility] [address] [place] [id number] [place] [address] Mar, [facility] [address] [address] Feb, [facility] [address] [place] [id number] [place] [address] Feb, [facility] [address] [address] [id number] [place] [address] Feb, [facility] [address] [address] [id number] [place] [address] Jan, [facility] [address] [address] Jan, [facility] [address] [place] [id number] [place] [address] Jan, [facility] [address] [address] [id number] [place] [address] Jan, [facility] [address] [address] [id number] [place] [address] December, [facility] [id number] [place] [id number] December, Dental examination V72.2 [facility] [address] [place] [id number] [place] [address] December, Tooth pain 525.9 [facility] [address] [id number] [place] [address] December, [facility] [address] [id number] [place] [address] Nov, [facility] [address] [place] [id number] [place] [address] Nov, [facility] [address] [place] [id number] [place] [address] Oct, [facility] [address] [place] [address] [id number] [place] [address] Oct, [facility] [address] [place] [address] [id number] [place] [address] Sep, [facility] [address] [place] [id number] [place] [address] Sep, [facility] [address] [place] [id number] [place] [address] Sep, [facility] [address] [place] [id number] [place] [address] Sep, [facility] [address] [id number] [place] [address] Aug, [facility] [address] [place] [id number] [place] [address] Aug, [facility] [address] [place] [id number] [place] [address] Aug, [facility] [address] [place] [id number] [place] [address] Aug, [facility] [address] [id number] [place] [address] Jul, [facility] [address] [place] [id number] [place] [address] Jul, [facility] [address] [facility] [id number] [place] [address] Jun, [facility] [address] [facility] [id number] [place] [address] Jun, [facility] [address] [id number] [place] [address] May, [facility] [address] [facility] [id number] [place] [address] May, [facility] [address] [facility] [id number] [place] [address] May, [facility] [address] [id number] [place] [address] May, [facility] [address] [id number] [place] [address] May, [facility] [address] [id number] [place] [address] May, [facility] [address] [id number] [place] [address] Apr, [facility] [address] [id number] [place] [address] Apr, [facility] [address] [id number] [place] [address] Apr, [facility] [address] [id number] [place] [address] 17 Apr, 2014 [facility] [address] [id number] [place] [address] 08 Apr, 2014 [facility] [address] [id number] [place] [address] 08 Apr, 2014 [facility] [address] [id number] [place] [address] Mar, [facility] [address] [id number] [place] [address] Mar, [facility] [address] [id number] [place] [address] Mar, [facility] [address] [facility] [id number] [place] [address] Mar, [facility] [address] [facility] [id number] [place] [address] Feb, [facility] [address] [id number] [place] [address] Feb, [facility] [address] [facility] [id number] [place] [address] Feb, [facility] [address] [facility] [id number] [place] [address] Feb, [facility] [address] [id number] [place] [address] Jan, [facility] [address] [id number] [place] [address] Jan, [facility] [address] [id number] [place] [address] Jan, [facility] [address] [id number] [place] [address] Jan, [facility] [address] [id number] [place] [address] Jan, [facility] [address] [id number] [place] [address] Jan, [facility] [address] [id number] [place] [address] Jan, [facility] [address] [id number] [place] [address] Jan, [facility] [address] [id number] [place] [address] Jan, [facility] [address] [id number] [place] [address] Jan, [facility] [address] [id number] [place] [address] December, [facility] [address] [facility] [id number] [place] [address] December, [facility] [address] [id number] [place] [address] December, [facility] [address] [id number] [place] [address] December, [facility] [address] [id number] [place] [address] December, [facility] [address] [id number] [place] [address] Nov, [facility] [address] [id number] [place] [address] Nov, [facility] [address] [id number] [place] [address] Nov, [facility] [address] [id number] [place] [address] Oct, [facility] [address] [id number] [place] [address] Oct, [facility] [address] [id number] [place] [address] Oct, [facility] [address] [id number] [place] [address] Oct, [facility] [address] [id number] [place] [address] Oct, [facility] [address] [id number] [place] [address] Oct, [facility] [address] [facility] [id number] [place] [address] Oct, [facility] [address] [id number] [place] [address] Oct, [facility] [address] [id number] [place] [address] Oct, [facility] [address] [id number] [place] [address] Sep, [facility] [address] [id number] [place] [address] Sep, [facility] [address] [id number] [place] [address] Aug, [facility] [address] [id number] [place] [address] Aug, [facility] [address] [id number] [place] [address] Aug, [facility] [address] [id number] [place] [address] Aug, [facility] [address] [id number] [place] [address] Jul, [facility] [address] [id number] [place] [address] Jul, [facility] [address] [id number] [place] [address] Jul, [facility] [address] [id number] [place] [address] Jul, [facility] [address] [id number] [place] [address] Jun, [facility] [address] [id number] [place] [address] Jun, [facility] [address] [id number] [place] [address] Jun, [facility] [address] [id number] [place] [address] Jun, [facility] [address] [id number] [place] [address] May, [facility] [address] [id number] [place] [address] May, [facility] [id number] [place] [address] May, [facility] [address] [id number] [place] [address] 08 May, 2013 [facility] [address] [facility] [id number] [place] [address] May, [facility] [address] [id number] [place] [address] May, [facility] [address] [id number] [place] [address] Apr, [facility] [address] [id number] [place] [address] Mar, [facility] [address] [id number] [place] [address] Mar, [facility] [address] [id number] [place] [address] Mar, [facility] [address] [id number] [place] [address] Feb, [facility] [address] [id number] [place] [address] Feb, [facility] [address] [id number] [place] [address] Feb, [facility] [address] [id number] [place] [address] Jan, [facility] [address] [id number] [place] [address] Jan, [facility] [address] [id number] [place] [address] December, [facility] [address] [id number] [place] [address] December, [facility] [address] [id number] [place] [address] December, [facility] [address] [id number] [place] [address] Nov, [facility] [address] [id number] [place] [address] Nov, [facility] [address] [id number] [place] [address] 23 Nov, 2012 [facility] [address] [id number] [place] [address] 2012 [facility] [address] [id number] [place] [address] 15 Nov, 2012 [facility] [address] [id number] [place] [address] 05 Nov, 2012 [facility] [address] [id number] [place] [address] 25 Oct, 2012 [facility] [address] [id number] [place] [address] 14 Oct, 2012 [facility] [address] [id number] [place] [address] Oct, [facility] [address] [id number] [place] [address] 06 Oct, 2012 [facility] [address] [id number] [place] [address] 28 Sep, 2012 [facility] [address] [id number] [place] [address] Sep, [facility] [address] [id number] [place] [address] 18 Sep, 2012 [facility] [address] [id number] [place] [address] Sep, [facility] [address] [id number] [place] [address] Sep, [facility] [address] [id number] [place] [address] Aug, [facility] [address] [id number] [place] [address] Aug, [facility] [address] [id number] [place] [address] Aug, [facility] [address] [id number] [place] [address] Aug, [facility] [address] [id number] [place] [address] Aug, [facility] [address] [id number] [place] [address] Aug, [facility] [address] [id number] [place] [address] May, [facility] [address] [id number] [place] [address] May, IMMUNIZATIONS No Known Immunizations SOCIAL HISTORY Never Assessed REASON FOR VISIT PLAN OF CARE VITAL SIGNS MEDICATIONS Unknown Medications RESULTS No Results PROCEDURES Procedure Date Ordered Result Body Site PSYTX PT&/FAMILY 45 MINUTES February 14, 2014 INSTRUCTIONS MEDICATIONS ADMINISTERED No Known Medications MEDICAL (GENERAL) HISTORY Type Description Date Medical History type I diabetes Medical History hx of MRSA infections Medical History depression Medical History anxiety Surgical History I & D-MRSA Hospitalization History MRSA 2004
--- OUTSIDE RECORDS SUMMARY | 2020-01-16 00:20 | XMS REPORT ---
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 9 Active 589889784 Problem Type 1 diabetes mellitus with hyperglycemia E10.65 Active [id number] Problem Mood disorder F39 Active 245246 05 Problem Other chronic pain G89.29 Active 8 1834413 Problem Schizoaffective disorder, depressive type F25.1 Active 82584513 ALLERGIES No Information ENCOUNTERS Encounter Location Date Diagnosis [place] [id number] [address] Jun, [facility] [address] [address] Jun, [facility] [address] [address] Jun, [facility] [address] [address] May, Type 1 diabetes mellitus without complic ation E10.9 [facility] [address] [address] May, Type 1 diabetes mellitus without complic ation E10.9 ; Encounter for immunization Z23 and Mood disorder F39 [facility] [address] [address] December, [place] [address] [address] Nov, [place] [address] [address] Nov, Uncontrolled type 1 diabetes mellitus wi thout complication E10.9 [place] [address] [address] Nov, Impingement syndrome, shoulder, right M7 5.41 and Adhesive capsulitis of right shoulder M75.01 [place] [address] [address] Nov, Uncontrolled type 1 diabetes mellitus wi thout complication E10.9 [place] [address] [address] Oct, Uncontrolled type 1 diabetes mellitus wi thout complication E10.9 ; Other chronic pain G89.29 ; Pain in right shoulder M25.511 and Schizoaffective disorder, depressive type F25.1 [place] [address] [address] May, Mood disorder F39 and Controlled diabete s mellitus type 1 without complications E10.9 [place] [address] [address] May, [place] [address] [address] May, [place] [address] [address] Apr, Mood disorder F39 ; Type 1 diabetes jerome itus with diabetic polyneuropathy E10.42 and Type 1 diabetes mellitus with hyperglycemia E10.65 [place] [address] [address] Apr, Mood disorder F39 [place] [address] [address] Mar, [place] [address] [address] Feb, [facility] [address] [id number] [place] [address] Jan, [facility] [address] [place] [id number] [place] [address] Jan, [facility] [address] [id number] [place] [address] Jan, [facility] [address] [id number] [place] [address] December, [facility] [address] [place] [id number] [place] [address] December, Schizoid personality disorder in adult F 60.1 and Controlled type 1 diabetes mellitus with diabetic neuropathy, with long-term current use of insulin E10.40 [facility] [id number] [place] [address] December, Schizo-affective schizophrenia F25.0 [facility] [address] [place] [id number] [place] [address] Nov, [facility] [address] [address] [id number] [place] [address] Nov, Anxiety disorder, unspecified F41.9 and Schizo-affective schizophrenia F25.0 [facility] [address] [id number] [place] [address] Nov, Schizo-affective schizophrenia F25.0 [facility] [address] [id number] [place] [address] Oct, [facility] [address] [id number] [place] [address] Sep, [facility] [address] [id number] [place] [address] Sep, [facility] [address] [id number] [place] [address] Sep, [facility] [address] [id number] [place] [address] Aug, [facility] [address] [address] Aug, [facility] [address] [address] Jul, [place] [address] [address] Jul, Diabetes type 1, controlled E10.9 [place] [address] [address] Jun, Diabetes mellitus without mention of com plication, type II or unspecified type, uncontrolled 250.02 [place] [address] [address] Jun, Diabetes type 1, controlled E10.9 [place] [address] [address] May, Diabetes mellitus without mention of com plication, type II or unspecified type, uncontrolled 250.02 [place] [address] [address] May, Anxiety 300.00 [place] [address] [address] May, Diabetes type 1, controlled E10.9 ; Schi zo-affective schizophrenia F25.0 ; Mood disorder F39 and Bipolar 1 disorder F31.9 [place] [address] [address] May, [place] [address] [address] May, Anxiety F41.9 and Depression F32.[address] [address] Apr, Diabetes mellitus without mention of com plication, type II or unspecified type, uncontrolled 250.02 [place] [address] [address] Apr, Anxiety 300.00 and Diabetes mellitus wit hout mention of complication, type II or unspecified type, uncontrolled 250.02 [facility] [address] [place] [id number] [place] [address] 16 Apr, 2015 [facility] [address] [address] Apr, Anxiety 300.00 and Depression 311 [facility] [address] [place] [id number] [place] [address] Apr, Major depression, recurrent 296.30 ; Anx iety, generalized 300.02 and No condition on [place] II V71.09 [facility] [address] [address] Apr, [facility] [address] [address] Mar, Diabetes mellitus without mention of com plication, type II or unspecified type, uncontrolled 250.02 and Anxiety 300.00 [facility] [address] [address] Mar, [facility] [address] [address] Feb, [facility] [address] [address] Feb, [facility] [address] [address] Feb, [facility] [address] [address] Jan, [facility] [address] [address] Jan, [facility] [address] [address] Jan, [facility] [address] [address] Jan, [facility] [address] [place] [id number] [place] [address] December, [facility] [id number] [place] [id number] December, Dental examination V72.2 [facility] [id number] [place] [address] December, Tooth pain 525.9 [facility] [address] [id number] [place] [address] December, [facility] [id number] [place] [address] Nov, [facility] [id number] [place] [address] Nov, [facility] [address] [address] [id number] [place] [address] Oct, [facility] [address] [address] [id number] [place] [address] Oct, [facility] [id number] [place] [address] Sep, [facility] [id number] [place] [address] Sep, [facility] [id number] [place] [address] Sep, [facility] [address] [id number] [place] [address] Sep, [facility] [id number] [place] [address] Aug, [facility] [id number] [place] [address] Aug, [facility] [id number] [place] [address] Aug, [facility] [address] [id number] [place] [address] Aug, [facility] [id number] [place] [address] Jul, [facility] [id number] [place] [address] Jul, [facility] [address] [facility] [id number] [place] [address] Jun, [facility] [address] [id number] [place] [address] Jun, [facility] [address] [id number] [place] [address] May, [facility] [address] [id number] [place] [address] May, [facility] [address] [facility] [id number] [place] [address] May, [facility] [address] [id number] [place] [address] May, [facility] [address] [id number] [place] [address] May, [facility] [address] [id number] [place] [address] May, [facility] [address] [id number] [place] [address] Apr, [facility] [address] [id number] [place] [address] Apr, [facility] [address] [id number] [place] [address] Apr, [facility] [address] [id number] [place] [address] Apr, [facility] [address] [id number] [place] [address] 08 Apr, 2014 [facility] [address] [id number] [place] [address] Apr, [facility] [address] [id number] [place] [address] Mar, [facility] [address] [id number] [place] [address] Mar, [facility] [address] [id number] [place] [address] Mar, [facility] [address] [facility] [id number] [facility] [place] [address] Mar, [facility] [address] [facility] [id number] [facility] [place] [address] Feb, [facility] [address] [id number] [place] [address] Feb, [facility] [address] [facility] [id number] [facility] [place] [address] Feb, [facility] [address] [facility] [id number] [facility] [place] [address] Feb, [facility] [address] [facility] [id number] [place] [address] Jan, [facility] [address] [id number] [place] [address] Jan, [facility] [address] [id number] [place] [address] Jan, [facility] [address] [facility] [id number] [place] [address] Jan, [facility] [address] [id number] [place] [address] Jan, [facility] [address] [id number] [place] [address] Jan, [facility] [address] [id number] [place] [address] Jan, [facility] [address] [facility] [id number] [place] [address] Jan, [facility] [address] [id number] [place] [address] Jan, [facility] [address] [id number] [place] [address] Jan, [facility] [address] [id number] [place] [address] December, [facility] [address] [id number] [place] [address] December, [facility] [address] [id number] [place] [address] December, [facility] [address] [id number] [place] [address] December, [facility] [address] [id number] [place] [address] December, [facility] [address] [id number] [place] [address] Nov, [facility] [address] [id number] [place] [address] Nov, [facility] [address] [id number] [place] [address] Nov, [facility] [address] [id number] [place] [address] Oct, [facility] [address] [id number] [place] [address] Oct, [facility] [address] [id number] [place] [address] Oct, [facility] [address] [id number] [place] [address] Oct, [facility] [address] [id number] [place] [address] Oct, [facility] [address] [id number] [place] [address] Oct, [facility] [address] [id number] [place] [address] Oct, [facility] [address] [id number] [place] [address] Oct, [facility] [address] [id number] [place] [address] Oct, [facility] [address] [id number] [place] [address] Sep, [facility] [address] [id number] [place] [address] Sep, [facility] [address] [id number] [place] [address] Aug, [facility] [address] [id number] [place] [address] Aug, [facility] [address] [id number] [place] [address] Aug, [facility] [address] [id number] [place] [address] Aug, [facility] [address] [id number] [place] [address] Jul, [facility] [address] [id number] [place] [address] Jul, [facility] [id number] [place] [address] Jul, [facility] [address] [id number] [place] [address] Jul, [facility] [address] [id number] [place] [address] Jun, [facility] [address] [id number] [place] [address] Jun, [facility] [address] [id number] [place] [address] Jun, [facility] [address] [id number] [place] [address] Jun, [facility] [address] [id number] [place] [address] May, [facility] [address] [id number] [place] [address] May, [facility] [address] [id number] [place] [address] May, [facility] [address] [id number] [place] [address] 08 May, 2013 [facility] [address] [id number] [place] [address] May, [facility] [address] [id number] [place] [address] May, [facility] [address] [id number] [place] [address] Apr, [facility] [address] [id number] [place] [address] Mar, [facility] [address] [id number] [place] [address] Mar, [facility] [address] [id number] [place] [address] Mar, [facility] [address] [id number] [place] [address] Feb, [facility] [address] [id number] [place] [address] Feb, [facility] [address] [id number] [place] [address] Feb, [facility] [address] [id number] [place] [address] Jan, [facility] [address] [id number] [place] [address] Jan, [facility] [address] [id number] [place] [address] December, [facility] [address] [id number] [place] [address] December, [facility] [address] [id number] [place] [address] December, [facility] [address] [id number] [place] [address] Nov, [facility] [address] [id number] [place] [address] Nov, [facility] [address] [id number] [place] [address] 23 Nov, 2012 [facility] [address] [id number] [place] [address] 2012 [facility] [address] [id number] [place] [address] 15 Nov, 2012 [facility] [address] [id number] [place] [address] 05 Nov, 2012 [facility] [address] [id number] [place] [address] 25 Oct, 2012 [facility] [address] [id number] [place] [address] 14 Oct, 2012 [facility] [address] [id number] [place] [address] Oct, [facility] [address] [id number] [place] [address] Oct, [facility] [address] [id number] [place] [address] Sep, [facility] [address] [id number] [place] [address] Sep, [facility] [address] [id number] [place] [address] Sep, [facility] [address] [id number] [place] [address] Sep, [facility] [address] [id number] [place] [address] Sep, [facility] [address] [id number] [place] [address] Aug, [facility] [address] [id number] [place] [address] Aug, [facility] [address] [id number] [place] [address] Aug, [facility] [address] [id number] [place] [address] Aug, [facility] [address] [id number] [place] [address] Aug, [facility] [address] [id number] [place] [address] Aug, [facility] [address] [facility] [id number] [place] [address] May, [facility] [address] [id number] [place] [address] May, IMMUNIZATIONS No Known Immunizations SOCIAL HISTORY [...]
--- OUTSIDE RECORDS SUMMARY | 2020-01-16 00:20 | XMS REPORT ---
Author Author Darien VILLALOBOS Organization [facility] Address [address] [place] [address] Care Team Providers Care Stockfeed Miller Name Role Phone CHRISTOPHER VILLALOBOS Unavailable PROBLEMS Type Condition ICD9-CM Code POB04-[place] Code Onset Dates Condition S tatus SNOMED Code Problem Diabetes type 1, controlled E10.9 Ac tive 39962680 Problem Type 2 diabetes mellitus with hyperglycemia E11.65 Active [id number] Problem Type 1 diabetes mellitus with hyperglycemia E10.65 Active [id number] Problem Uncontrolled type 1 diabetes mellitus without complication E10.9 Active 521375961 Problem Type 1 diabetes mellitus without complication E10. 9 Active 792554915 Problem Type 1 diabetes mellitus with diabetic polyneuropathy E10.42 Active 42693422 Problem Mood disorder F39 Active 324263 05 Problem Other chronic pain G89.29 Active 8 6777791 Problem Schizoaffective disorder, depressive type F25.1 Active [id number] ALLERGIES No Information ENCOUNTERS Encounter Location Date Diagnosis [place] [address] [address] Jun, [facility] [address] [address] Jun, [facility] [address] [address] Jun, [facility] [address] [address] May, Type 1 diabetes mellitus without complic ation E10.9 [facility] [address] [address] May, Type 1 diabetes mellitus without complic ation E10.9 ; Encounter for immunization Z23 and Mood disorder F39 [facility] [address] [address] December, [place] [address] [address] Nov, [place] [address] [address] Nov, Uncontrolled type 1 diabetes mellitus wi thout complication E10.9 [place] [address] [address] Nov, Impingement syndrome, shoulder, right M7 5.41 and Adhesive capsulitis of right shoulder M75.01 [place] [address] [address] Nov, Uncontrolled type 1 diabetes mellitus wi thout complication E10.9 [place] [address] [address] Oct, Uncontrolled type 1 diabetes mellitus wi thout complication E10.9 ; Other chronic pain G89.29 ; Pain in right shoulder M25.511 and Schizoaffective disorder, depressive type F25.1 [place] [address] [address] May, Mood disorder F39 and Controlled diabete s mellitus type 1 without complications E10.9 [place] [address] [address] May, [place] [address] [address] May, [place] [address] [address] Apr, Mood disorder F39 ; Type 1 diabetes jerome itus with diabetic polyneuropathy E10.42 and Type 1 diabetes mellitus with hyperglycemia E10.65 [place] [address] [address] Apr, Mood disorder F39 [place] [address] [address] Mar, [place] [address] [address] Feb, [facility] [address] [id number] [place] [address] Jan, [facility] [address] [place] [id number] [place] [address] Jan, [facility] [address] [id number] [place] [address] Jan, [facility] [id number] [place] [address] December, [facility] [address] [place] [address] [id number] [place] [address] December, Schizoid personality disorder in adult F 60.1 and Controlled type 1 diabetes mellitus with diabetic neuropathy, with long-term current use of insulin E10.40 [facility] [address] [address] [id number] [place] [address] December, Schizo-affective schizophrenia F25.0 [facility] [address] [place] [address] [id number] [place] [address] Nov, [facility] [address] [address] [id number] [place] [address] Nov, Anxiety disorder, unspecified F41.9 and Schizo-affective schizophrenia F25.0 [facility] [address] [id number] [place] [address] Nov, Schizo-affective schizophrenia F25.0 [facility] [address] [place] [address] [id number] [place] [address] Oct, [facility] [address] [id number] [place] [address] Sep, [facility] [address] [place] [address] [id number] [place] [address] Sep, [facility] [address] [place] [address] [id number] [place] [address] Sep, [facility] [address] [place] [address] [id number] [place] [address] Aug, [facility] [address] [address] Aug, [facility] [address] [address] Jul, [place] [address] [address] Jul, Diabetes type 1, controlled E10.9 [place] [address] [address] Jun, Diabetes mellitus without mention of com plication, type II or unspecified type, uncontrolled 250.02 [place] [address] [address] Jun, Diabetes type 1, controlled E10.9 [place] [address] [address] May, Diabetes mellitus without mention of com plication, type II or unspecified type, uncontrolled 250.02 [place] [address] [address] May, Anxiety 300.00 [place] [address] [address] May, Diabetes type 1, controlled E10.9 ; Schi zo-affective schizophrenia F25.0 ; Mood disorder F39 and Bipolar 1 disorder F31.9 [place] [address] [address] May, [place] [address] [address] May, Anxiety F41.9 and Depression F32.[address] [address] Apr, Diabetes mellitus without mention of com plication, type II or unspecified type, uncontrolled 250.02 [place] [address] [address] Apr, Anxiety 300.00 and Diabetes mellitus wit hout mention of complication, type II or unspecified type, uncontrolled 250.02 [facility] [address] [place] [id number] [place] [address] 16 Apr, 2015 [facility] [address] [address] Apr, Anxiety 300.00 and Depression 311 [facility] [address] [place] [id number] [place] [address] Apr, Major depression, recurrent 296.30 ; Anx iety, generalized 300.02 and No condition on Miracle II V71.09 [facility] [address] [address] Apr, [facility] [address] [address] Mar, Diabetes mellitus without mention of com plication, type II or unspecified type, uncontrolled 250.02 and Anxiety 300.00 [facility] [address] [address] Mar, [facility] [address] [address] Feb, [facility] [address] [address] Feb, [facility] [address] [address] Feb, [facility] [address] [address] Jan, [facility] [address] [address] Jan, [facility] [address] [address] Jan, [facility] [address] [address] Jan, [facility] [address] [place] [address] [id number] [place] [address] December, [facility] [id number] [place] [id number] December, Dental examination V72.2 [facility] [address] [id number] [place] [address] December, Tooth pain 525.9 [facility] [address] [id number] [place] [address] December, [facility] [address] [id number] [place] [address] Nov, [facility] [address] [id number] [place] [address] Nov, [facility] [address] [place] [id number] [place] [address] Oct, [facility] [address] [place] [address] [id number] [place] [address] Oct, [facility] [id number] [place] [address] Sep, [facility] [address] [address] [id number] [place] [address] Sep, [facility] [id number] [place] [address] Sep, [facility] [address] [id number] [place] [address] Sep, [facility] [address] [id number] [place] [address] Aug, [facility] [id number] [place] [address] Aug, [facility] [address] [id number] [place] [address] Aug, [facility] [address] [id number] [place] [address] Aug, [facility] [id number] [place] [address] Jul, [facility] [address] [id number] [place] [address] Jul, [facility] [address] [facility] [id number] [place] [address] Jun, [facility] [address] [id number] [place] [address] Jun, [facility] [address] [id number] [place] [address] May, [facility] [address] [id number] [place] [address] May, [facility] [address] [facility] [id number] [place] [address] May, [facility] [address] [id number] [place] [address] May, [facility] [address] [id number] [place] [address] May, [facility] [address] [id number] [place] [address] May, [facility] [address] [id number] [place] [address] Apr, [facility] [address] [id number] [place] [address] Apr, [facility] [address] [id number] [place] [address] Apr, [facility] [address] [id number] [place] [address] Apr, [facility] [address] [id number] [place] [address] 08 Apr, 2014 [facility] [address] [id number] [place] [address] Apr, [facility] [address] [id number] [place] [address] Mar, [facility] [address] [id number] [place] [address] Mar, [facility] [address] [id number] [place] [address] Mar, [facility] [address] [facility] [id number] [place] [address] Mar, [facility] [address] [facility] [id number] [place] [address] Feb, [facility] [address] [id number] [place] [address] Feb, [facility] [address] [facility] [id number] [place] [address] Feb, [facility] [address] [facility] [id number] [place] [address] Feb, [facility] [address] [facility] [id number] [place] [address] Jan, [facility] [address] [id number] [place] [address] Jan, [facility] [address] [id number] [place] [address] Jan, [facility] [address] [facility] [id number] [place] [address] Jan, [facility] [address] [id number] [place] [address] Jan, [facility] [address] [id number] [place] [address] Jan, [facility] [address] [id number] [place] [address] Jan, [facility] [address] [facility] [id number] [place] [address] Jan, [facility] [address] [id number] [place] [address] Jan, [facility] [address] [id number] [place] [address] Jan, [facility] [address] [id number] [place] [address] December, [facility] [address] [id number] [place] [address] December, [facility] [address] [id number] [place] [address] December, [facility] [address] [id number] [place] [address] December, [facility] [address] [id number] [place] [address] December, [facility] [address] [id number] [place] [address] Nov, [facility] [address] [id number] [place] [address] Nov, [facility] [address] [id number] [place] [address] Nov, [facility] [address] [id number] [place] [address] Oct, [facility] [address] [id number] [place] [address] Oct, [facility] [address] [id number] [place] [address] Oct, [facility] [address] [id number] [place] [address] Oct, [facility] [address] [id number] [place] [address] Oct, [facility] [address] [id number] [place] [address] Oct, [facility] [address] [id number] [place] [address] Oct, [facility] [address] [id number] [place] [address] Oct, [facility] [address] [id number] [place] [address] Oct, [facility] [address] [id number] [place] [address] Sep, [facility] [address] [id number] [place] [address] Sep, [facility] [address] [id number] [place] [address] Aug, [facility] [address] [id number] [place] [address] Aug, [facility] [address] [id number] [place] [address] Aug, [facility] [address] [id number] [place] [address] Aug, [facility] [address] [id number] [place] [address] Jul, [facility] [address] [id number] [place] [address] Jul, [facility] [id number] [place] [address] Jul, [facility] [address] [id number] [place] [address] Jul, [facility] [address] [id number] [place] [address] Jun, [facility] [address] [id number] [place] [address] Jun, [facility] [address] [id number] [place] [address] Jun, [facility] [address] [id number] [place] [address] Jun, [facility] [address] [id number] [place] [address] May, [facility] [address] [id number] [place] [address] May, [facility] [address] [id number] [place] [address] May, [facility] [address] [id number] [place] [address] 08 May, 2013 [facility] [address] [id number] [place] [address] May, [facility] [address] [id number] [place] [address] May, [facility] [address] [id number] [place] [address] Apr, [facility] [address] [id number] [place] [address] Mar, [facility] [address] [id number] [place] [address] Mar, [facility] [address] [id number] [place] [address] Mar, [facility] [address] [id number] [place] [address] Feb, [facility] [address] [id number] [place] [address] Feb, [facility] [address] [id number] [place] [address] Feb, [facility] [address] [id number] [place] [address] Jan, [facility] [address] [id number] [place] [address] Jan, [facility] [address] [id number] [place] [address] December, [facility] [address] [id number] [place] [address] December, [facility] [address] [id number] [place] [address] December, [facility] [address] [id number] [place] [address] Nov, [facility] [address] [id number] [place] [address] Nov, [facility] [address] [id number] [place] [address] 23 Nov, 2012 [facility] [address] [id number] [place] [address] 2012 [facility] [address] [id number] [place] [address] 15 Nov, 2012 [facility] [address] [id number] [place] [address] 05 Nov, 2012 [facility] [address] [id number] [place] [address] 25 Oct, 2012 [facility] [address] [id number] [place] [address] 14 Oct, 2012 [facility] [address] [id number] [place] [address] Oct, [facility] [address] [id number] [place] [address] Oct, [facility] [address] [id number] [place] [address] Sep, [facility] [address] [id number] [place] [address] Sep, [facility] [address] [id number] [place] [address] Sep, [facility] [address] [id number] [place] [address] Sep, [facility] [address] [id number] [place] [address] Sep, [facility] [address] [id number] [place] [address] Aug, [facility] [address] [id number] [place] [address] Aug, [facility] [address] [id number] [place] [address] Aug, [facility] [address] [id number] [place] [address] Aug, [facility] [address] [id number] [place] [address] Aug, [facility] [address] [id number] [place] [address] Aug, [facility] [address] [facility] [id number] [place] [address] May, [facility] [address] [id number] [place] [address] May, IMMUNIZATIONS No Known Immunizations SOCIAL HISTORY [...]
--- OUTSIDE RECORDS SUMMARY | 2020-01-16 00:20 | XMS REPORT ---
Author Author Darien VILLALOBOS Organization [facility] Address [address] [place] [address] Care Team Providers Care Moto Mix Operator Name Role Phone CHRISTOPHER VILLALOBOS Unavailable PROBLEMS Type Condition ICD9-CM Code USL24-HZ Code Onset Dates Condition S tatus SNOMED Code Problem Diabetes type 1, controlled E10.9 Ac tive 18138565 Problem Type 2 diabetes mellitus with hyperglycemia E11.65 Active 027750887188242 Problem Type 1 diabetes mellitus with hyperglycemia E10.65 Active 147488254439424 Problem Uncontrolled type 1 diabetes mellitus without complication E10.9 Active 796300458 Problem Type 1 diabetes mellitus without complication E10. 9 Active 492684348 Problem Type 1 diabetes mellitus with diabetic polyneuropathy E10.42 Active 20581107 Problem Mood disorder F39 Active 020215 05 Problem Other chronic pain G89.29 Active 8 2335082 Problem Schizoaffective disorder, depressive type F25.1 Active [id number] ALLERGIES No Information ENCOUNTERS Encounter Location Date Diagnosis [place] [address] [address] Jun, [facility] [address] [address] Jun, [facility] [address] [address] Jun, [facility] [address] [address] May, Type 1 diabetes mellitus without complic ation E10.9 [facility] [address] [address] May, Type 1 diabetes mellitus without complic ation E10.9 ; Encounter for immunization Z23 and Mood disorder F39 [facility] [address] [address] December, [place] [address] [address] Nov, [place] [address] [address] Nov, Uncontrolled type 1 diabetes mellitus wi thout complication E10.9 [place] [address] [address] Nov, Impingement syndrome, shoulder, right M7 5.41 and Adhesive capsulitis of right shoulder M75.01 [place] [address] [address] Nov, Uncontrolled type 1 diabetes mellitus wi thout complication E10.9 [place] [address] [address] Oct, Uncontrolled type 1 diabetes mellitus wi thout complication E10.9 ; Other chronic pain G89.29 ; Pain in right shoulder M25.511 and Schizoaffective disorder, depressive type F25.1 [place] [address] [address] May, Mood disorder F39 and Controlled diabete s mellitus type 1 without complications E10.9 [place] [address] [address] May, [place] [address] [address] May, [place] [address] [address] Apr, Mood disorder F39 ; Type 1 diabetes jerome itus with diabetic polyneuropathy E10.42 and Type 1 diabetes mellitus with hyperglycemia E10.65 [place] [address] [address] Apr, Mood disorder F39 [place] [address] [address] Mar, [place] [address] [address] Feb, [facility] [address] [id number] [place] [address] Jan, [facility] [address] [place] [id number] [place] [address] Jan, [facility] [address] [id number] [place] [address] Jan, [facility] [address] [id number] [place] [address] December, [facility] [address] [place] [address] [id number] [place] [address] December, Schizoid personality disorder in adult F 60.1 and Controlled type 1 diabetes mellitus with diabetic neuropathy, with long-term current use of insulin E10.40 [facility] [address] [place] [address] [id number] [place] [address] December, Schizo-affective schizophrenia F25.0 [facility] [address] [place] [id number] [place] [address] Nov, [facility] [address] [place] [address] [id number] [place] [address] Nov, Anxiety disorder, unspecified F41.9 and Schizo-affective schizophrenia F25.0 [facility] [address] [place] [address] [id number] [place] [address] Nov, Schizo-affective schizophrenia F25.0 [facility] [address] [place] [address] [id number] [place] [address] Oct, [facility] [address] [id number] [place] [address] Sep, [facility] [address] [place] [address] [id number] [place] [address] Sep, [facility] [address] [id number] [place] [address] Sep, [facility] [address] [place] [id number] [place] [address] Aug, [facility] [address] [address] Aug, [facility] [address] [address] Jul, [place] [address] [address] Jul, Diabetes type 1, controlled E10.9 [place] [address] [address] Jun, Diabetes mellitus without mention of com plication, type II or unspecified type, uncontrolled 250.02 [place] [address] [address] Jun, Diabetes type 1, controlled E10.9 [place] [address] [address] May, Diabetes mellitus without mention of com plication, type II or unspecified type, uncontrolled 250.02 [place] [address] [address] May, Anxiety 300.00 [place] [address] [address] May, Diabetes type 1, controlled E10.9 ; Schi zo-affective schizophrenia F25.0 ; Mood disorder F39 and Bipolar 1 disorder F31.9 [place] [address] [address] May, [place] [address] [address] May, Anxiety F41.9 and Depression F32.[address] [address] Apr, Diabetes mellitus without mention of com plication, type II or unspecified type, uncontrolled 250.02 [place] [address] [address] Apr, Anxiety 300.00 and Diabetes mellitus wit hout mention of complication, type II or unspecified type, uncontrolled 250.02 [facility] [address] [place] [address] [id number] [place] [address] 16 Apr, 2015 [facility] [address] [address] Apr, Anxiety 300.00 and Depression 311 [facility] [address] [place] [id number] [place] [address] Apr, Major depression, recurrent 296.30 ; Anx iety, generalized 300.02 and No condition on [place] V71.09 [facility] [address] [address] Apr, [facility] [address] [address] Mar, Diabetes mellitus without mention of com plication, type II or unspecified type, uncontrolled 250.02 and Anxiety 300.00 [facility] [address] [address] Mar, [facility] [address] [address] Feb, [facility] [address] [address] Feb, [facility] [address] [address] Feb, [facility] [address] [address] Jan, [facility] [address] [address] Jan, [facility] [address] [address] Jan, [facility] [address] [address] Jan, [facility] [address] [place] [id number] [place] [address] December, [facility] [id number] [place] [id number] December, Dental examination V72.2 [facility] [address] [address] [id number] [place] [address] December, Tooth pain 525.9 [facility] [address] [id number] [place] [address] December, [facility] [address] [place] [address] [id number] [place] [address] Nov, [facility] [address] [id number] [place] [address] Nov, [facility] [address] [id number] [place] [address] Oct, [facility] [address] [place] [id number] [place] [address] Oct, [facility] [address] [place] [id number] [place] [address] Sep, [facility] [address] [id number] [place] [address] Sep, [facility] [address] [place] [id number] [place] [address] Sep, [facility] [address] [place] [address] [id number] [place] [address] Sep, [facility] [address] [place] [id number] [place] [address] Aug, [facility] [address] [id number] [place] [address] Aug, [facility] [address] [place] [id number] [place] [address] Aug, [facility] [address] [id number] [place] [address] Aug, [facility] [address] [id number] [place] [address] Jul, [facility] [address] [place] [id number] [place] [address] Jul, [facility] [address] [facility] [id number] [place] [address] Jun, [facility] [address] [id number] [place] [address] Jun, [facility] [address] [id number] [place] [address] May, [facility] [address] [id number] [place] [address] May, [facility] [address] [facility] [id number] [place] [address] May, [facility] [address] [id number] [place] [address] May, [facility] [address] [id number] [place] [address] May, [facility] [address] [id number] [place] [address] May, [facility] [address] [id number] [place] [address] Apr, [facility] [address] [id number] [place] [address] Apr, [facility] [address] [id number] [place] [address] Apr, [facility] [address] [id number] [place] [address] Apr, [facility] [address] [id number] [place] [address] 08 Apr, 2014 [facility] [address] [id number] [place] [address] Apr, [facility] [address] [id number] [place] [address] Mar, [facility] [address] [id number] [place] [address] Mar, [facility] [address] [id number] [place] [address] Mar, [facility] [address] [facility] [id number] [facility] [address] Mar, [facility] [address] [facility] [id number] [facility] [address] Feb, [facility] [address] [id number] [place] [address] Feb, [facility] [address] [facility] [id number] [facility] [place] [address] Feb, [facility] [address] [facility] [id number] [facility] [place] [address] Feb, [facility] [address] [facility] [id number] [place] [address] Jan, [facility] [address] [id number] [place] [address] Jan, [facility] [address] [id number] [place] [address] Jan, [facility] [address] [facility] [id number] [place] [address] Jan, [facility] [address] [id number] [place] [address] Jan, [facility] [address] [id number] [place] [address] Jan, [facility] [address] [id number] [place] [address] Jan, [facility] [address] [facility] [id number] [place] [address] Jan, [facility] [address] [id number] [place] [address] Jan, [facility] [address] [id number] [place] [address] Jan, [facility] [address] [id number] [place] [address] December, [facility] [address] [id number] [place] [address] December, [facility] [address] [id number] [place] [address] December, [facility] [address] [id number] [place] [address] December, [facility] [address] [id number] [place] [address] December, [facility] [address] [id number] [place] [address] Nov, [facility] [address] [id number] [place] [address] Nov, [facility] [address] [id number] [place] [address] Nov, [facility] [address] [id number] [place] [address] Oct, [facility] [address] [id number] [place] [address] Oct, [facility] [address] [id number] [place] [address] Oct, [facility] [address] [id number] [place] [address] Oct, [facility] [address] [id number] [place] [address] Oct, [facility] [address] [id number] [place] [address] Oct, [facility] [address] [id number] [place] [address] Oct, [facility] [address] [id number] [place] [address] Oct, [facility] [address] [id number] [place] [address] Oct, [facility] [address] [id number] [place] [address] Sep, [facility] [address] [id number] [place] [address] Sep, [facility] [address] [id number] [place] [address] Aug, [facility] [address] [id number] [place] [address] Aug, [facility] [address] [id number] [place] [address] Aug, [facility] [address] [id number] [place] [address] Aug, [facility] [address] [id number] [place] [address] Jul, [facility] [address] [id number] [place] [address] Jul, [facility] [address] [id number] [place] [address] Jul, [facility] [address] [id number] [place] [address] Jul, [facility] [address] [id number] [place] [address] Jun, [facility] [address] [id number] [place] [address] Jun, [facility] [address] [id number] [place] [address] Jun, [facility] [address] [id number] [place] [address] Jun, [facility] [address] [id number] [place] [address] May, [facility] [address] [id number] [place] [address] May, [facility] [address] [id number] [place] [address] May, [facility] [address] [id number] [place] [address] 08 May, 2013 [facility] [address] [id number] [place] [address] May, [facility] [address] [id number] [place] [address] May, [facility] [address] [id number] [place] [address] Apr, [facility] [address] [id number] [place] [address] Mar, [facility] [address] [id number] [place] [address] Mar, [facility] [address] [id number] [place] [address] Mar, [facility] [address] [id number] [place] [address] Feb, [facility] [address] [id number] [place] [address] Feb, [facility] [address] [id number] [place] [address] Feb, [facility] [address] [id number] [place] [address] Jan, [facility] [address] [id number] [place] [address] Jan, [facility] [address] [id number] [place] [address] December, [facility] [address] [id number] [place] [address] December, [facility] [address] [id number] [place] [address] December, [facility] [address] [id number] [place] [address] Nov, [facility] [address] [id number] [place] [address] Nov, [facility] [address] [id number] [place] [address] 23 Nov, 2012 [facility] [address] [id number] [place] [address] 2012 [facility] [address] [id number] [place] [address] 15 Nov, 2012 [facility] [address] [id number] [place] [address] 05 Nov, 2012 [facility] [address] [id number] [place] [address] 25 Oct, 2012 [facility] [address] [id number] [place] [address] 14 Oct, 2012 [facility] [address] [id number] [place] [address] Oct, [facility] [address] [id number] [place] [address] Oct, [facility] [address] [id number] [place] [address] Sep, [facility] [address] [id number] [place] [address] Sep, [facility] [address] [id number] [place] [address] Sep, [facility] [address] [id number] [place] [address] Sep, [facility] [address] [id number] [place] [address] Sep, [facility] [address] [id number] [place] [address] Aug, [facility] [address] [id number] [place] [address] Aug, [facility] [address] [id number] [place] [address] Aug, [facility] [address] [id number] [place] [address] Aug, [facility] [address] [id number] [place] [address] Aug, [facility] [address] [id number] [place] [address] Aug, [facility] [address] [facility] [id number] [place] [address] May, [facility] [address] [id number] [place] [address] May, IMMUNIZATIONS No Known Immunizations SOCIAL HISTORY [...]
--- OUTSIDE RECORDS SUMMARY | 2020-01-16 00:21 | XMS REPORT ---
Author Author Darien VILLALOBOS Organization [facility] Address [address] [place] [address] Care Team Providers Care Car Clerk Pullman Name Role Phone CHRISTOPHER VILLALOBOS Unavailable PROBLEMS Type Condition ICD9-CM Code YJR71-CT Code Onset Dates Condition S tatus SNOMED Code Problem Diabetes type 1, controlled E10.9 Ac tive 08124542 Problem Type 2 diabetes mellitus with hyperglycemia E11.65 Active 228022599819683 Problem Other chronic pain G89.29 Active 8 2966078 Problem Schizoaffective disorder, depressive type F25.1 Active 82414516 Problem Type 1 diabetes mellitus with hyperglycemia E10.65 Active [id number] Problem Type 1 diabetes mellitus with diabetic polyneuropathy E10.42 Active 49427223 Problem Mood disorder F39 Active 951447 05 Problem Uncontrolled type 1 diabetes mellitus without complication E10.9 Active [id number] ALLERGIES No Information ENCOUNTERS Encounter Location Date Diagnosis [place] [address] [place] [id number] [address] [place] [address] December, [place] [address] [place] [id number] [address] [place] [address] Nov, [place] [address] [place] [id number] [address] [place] [address] 14 Nov, 2016 Uncontrolled type 1 diabetes mellitus without complication E10.9 [facility] [address] [facility] [id number] [address] [place] [id number] 13 Nov, 2016 Impingement syndrome, should er, right M75.41 and Adhesive capsulitis of right shoulder M75.01 [facility] [address] [facility] [id number] [address] [place] [address] 03 Nov, 2016 Uncontrolled type 1 diabetes mellitus without complication E10.9 [facility] [address] [place] [id number] [address] [place] [address] Oct, Uncontrolled type 1 diabetes mellitus without complication E10.9 ; Other chronic pain G89.29 ; Pain in right shoulder M25.511 and Schizoaffective disorder, depressive type F25.1 [facility] [address] [id number] [address] [place] [address] May, Mood disorder F39 and Contro lled diabetes mellitus type 1 without complications E10.9 [facility] [address] [id number] [address] [place] [address] May, [facility] [address] [id number] [address] [place] [address] May, [facility] [address] [id number] [address] [place] [address] Apr, Mood disorder F39 ; 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 and Type 1 diabetes mellitus with hyperglycemia E10.65 [facility] [address] [id number] [address] [place] [address] Apr, Mood disorder F39 [facility] [address] [id number] [address] [place] [address] Mar, [facility] [address] [id number] [address] [place] [address] Feb, [facility] [address] [id number] [address] [place] [address] Jan, [facility] [address] [id number] [address] [place] [address] Jan, [facility] [address] [id number] [address] [place] [address] Jan, [facility] [address] [id number] [address] [place] [address] December, [facility] [address] [id number] [address] [place] [address] December, 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 and Controlled type 1 diabetes mellitus with diabetic neuropathy, with long-term current use of insulin E10.40 [facility] [address] [facility] [id number] [address] [place] [id number] December, Schizo-affective schizophren ia F25.0 [facility] [address] [facility] [id number] [address] [place] [address] Nov, [facility] [address] [facility] [id number] [address] [place] [address] Nov, Anxiety disorder, unspecifie d F41.9 and Schizo-affective schizophrenia F25.0 [facility] [address] [facility] [id number] [address] [place] [address] Nov, Schizo-affective schizophren ia F25.0 [facility] [address] [facility] [id number] [address] [place] [address] Oct, [facility] [address] [facility] [id number] [address] [place] [address] Sep, [facility] [address] [facility] [id number] [address] [place] [address] Sep, [facility] [address] [facility] [id number] [address] [place] [address] Sep, [facility] [address] [facility] [id number] [address] [place] [address] Aug, [facility] [address] [facility] [id number] [address] [place] [address] Aug, [facility] [address] [facility] [id number] [address] [place] [address] Jul, [facility] [address] [place] [id number] [address] [place] [address] Jul, Diabetes type 1, controlled E10.9 [facility] [address] [facility] [id number] [address] [place] [address] Jun, Diabetes mellitus without me ntion of complication, type II or unspecified type, uncontrolled 250.02 [facility] [address] [address] Jun, Diabetes type 1, controlled E10.9 [place] [address] [address] May, Diabetes mellitus without me ntion of complication, type II or unspecified type, uncontrolled 250.02 [place] [address] [address] May, Anxiety 300.00 [place] [address] [address] May, Diabetes type 1, controlled E10.9 ; Schizo-affective schizophrenia F25.0 ; Mood disorder F39 and Bipolar 1 disorder F31.9 [place] [address] [address] May, [place] [address] [address] May, Anxiety F41.9 and Depression F32.9 [place] [address] [address] Apr, Diabetes mellitus without me ntion of complication, type II or unspecified type, uncontrolled 250.02 [place] [address] [address] Apr, Anxiety 300.00 and Diabetes mellitus without mention of complication, type II or unspecified type, uncontrolled 250.02 [facility] [address] [address] Apr, [place] [address] [address] Apr, Anxiety 300.00 and Depressio n 311 [place] [address] [address] Apr, Major depression, recurrent 296.30 ; Anxiety, generalized 300.02 and No condition on [place] II V71.09 [facility] [address] [id number] [address] [place] [address] Apr, [facility] [address] [id number] [address] [place] [address] Mar, Diabetes mellitus without me ntion of complication, type II or unspecified type, uncontrolled 250.02 and Anxiety 300.00 [facility] [address] [id number] [address] [place] [id number] Mar, [facility] [address] [id number] [address] [place] [phone] Feb, [facility] [address] [id number] [address] [place] [address] Feb, [facility] [address] [id number] [address] [place] [address] Feb, [facility] [address] [id number] [address] [place] [address] Jan, [facility] [address] [id number] [address] [place] [phone] Jan, [facility] [address] [id number] [address] [place] [address] Jan, [facility] [address] [facility] [id number] [address] [place] [address] Jan, [facility] [address] [id number] [address] [place] [phone] December, [facility] [address] [id number] [address] [place] [id number] December, Dental examination V72.2 [facility] [address] [id number] [address] [place] [address] December, Tooth pain 525.9 [facility] [address] [id number] [address] [place] [address] December, [facility] [address] [id number] [address] [place] [address], [place] [address] 14 Nov, 2014 [facility] [address] [id number] [address] [place] [address], [place] [address] 13 Nov, 2014 [facility] [address] [id number] [address] [place] [address], [place] [address] Oct, [facility] [address] [id number] [address] [place] [address], [place] [address] Oct, [facility] [address] [id number] [address] [place] [address], [place] [address] Sep, [facility] [address] [id number] [address] [place] [address], [place] [address] Sep, [facility] [address] [id number] [address] [place] [address], [place] [address] Sep, [facility] [address] [id number] [address] [place] [address], [place] [address] Sep, [facility] [address] [id number] [address] [place] [address], [place] [address] Aug, [facility] [address] [id number] [address] [place] [address], [place] [address] Aug, [facility] [address] [id number] [address] [place] [address], [place] [address] Aug, [facility] [address] [id number] [address] [place] [address], [place] [address] Aug, [facility] [address] [id number] [address] [place] [address], [place] [address] Jul, [facility] [address] [id number] [address] [place] [address], [place] [address] Jul, [facility] [address] [id number] [address] [place] [address], [place] [address] Jun, [facility] [address] [id number] [address] [place] [address], [place] [address] Jun, [facility] [address] [id number] [address] [place] [address], [place] [address] May, [facility] [address] [id number] [address] [place] [address], [place] [address] May, [facility] [address] [id number] [address] [place] [address], [place] [address] May, [facility] [address] [id number] [address] [place] [address], [place] [address] May, [facility] [address] [id number] [address] [place] [address], [place] [address] May, [facility] [address] [id number] [address] [place] [address], [place] [address] May, [facility] [address] [id number] [address] [place] [address], [place] [address] Apr, [facility] [address] [id number] [address] [place] [address], [place] [address] Apr, [facility] [address] [id number] [address] [place] [address], [place] [address] 17 Apr, 2014 [facility] [address] [id number] [address] [place] [address], [place] [address] 17 Apr, 2014 [facility] [address] [id number] [address] [place] [address], [place] [address] 08 Apr, 2014 [facility] [address] [id number] [address] [place] [address], [place] [address] 08 Apr, 2014 [facility] [address] [id number] [address] [place] [address], [place] [address] Mar, [facility] [address] [id number] [address] [place] [address], [place] [address] Mar, [facility] [address] [id number] [address] [place] [address], [place] [address] Mar, [facility] [address] [id number] [address] [place] [address] Mar, [facility] [address] [id number] [facility] [place] [address] Feb, [facility] [address] [id number] [address] [place] [address], [place] [address] Feb, [facility] [address] [id number] [address] [place] [address], [place] [address] Feb, [facility] [address] [id number] [address] [place] [address], [place] [address] Feb, [facility] [address] [id number] [address] [place] [address], [place] [address] Jan, [facility] [address] [id number] [address] [place] [address], [place] [address] Jan, [facility] [address] [id number] [address] [place] [address], [place] [address] Jan, [facility] [address] [id number] [address] [place] [address], [place] [address] Jan, [facility] [address] [id number] [address] [place] [address], [place] [address] Jan, [facility] [address] [id number] [address] [place] [address], [place] [address] Jan, [facility] [address] [id number] [address] [place] [address], [place] [address] Jan, [facility] [address] [id number] [address] [place] [address], [place] [address] Jan, [facility] [address] [id number] [address] [place] [address], [place] [address] Jan, [facility] [address] [id number] [address] [place] [address], [place] [address] Jan, [facility] [address] [id number] [address] [place] [address], [place] [address] December, [facility] [address] [id number] [facility] [place] [address] December, [facility] [address] [id number] [facility] [place] [address] December, [facility] [address] [id number] [facility] [place] [address] December, [facility] [address] [id number] [facility] [place] [address] December, [facility] [address] [id number] [facility] [place] [address] Nov, [facility] [address] [id number] [address] [place] [address], [place] [address] Nov, [facility] [address] [id number] [address] [place] [address], [place] [address] Nov, [facility] [address] [id number] [address] [place] [address], [place] [address] Oct, [facility] [address] [id number] [address] [place] [address], [place] [address] Oct, [facility] [address] [id number] [address] [place] [address], [place] [address] Oct, [facility] [address] [id number] [address] [place] [address], [place] [address] Oct, [facility] [address] [id number] [address] [place] [address], [place] [address] Oct, [facility] [address] [id number] [address] [place] [address], [place] [address] Oct, [facility] [address] [id number] [address] [place] [address], [place] [address] Oct, [facility] [address] [id number] [address] [place] [address], [place] [address] Oct, [facility] [address] [id number] [address] [place] [address] [address] Oct, [facility] [address] [id number] [address] [place] [address], [place] [address] Sep, [facility] [address] [id number] [address] [place] [address], [place] [address] Sep, [facility] [address] [id number] [address] [place] [address], [place] [address] Aug, [facility] [address] [id number] [address] [place] [address], [place] [address] Aug, [facility] [address] [id number] [address] [place] [address], [place] [address] Aug, [facility] [address] [id number] [address] [place] [address], [place] [address] Aug, [facility] [address] [id number] [address] [place] [address], [place] [address] Jul, [facility] [address] [id number] [address] [place] [address], [place] [address] Jul, [facility] [address] [id number] [address] [place] [address], [place] [address] Jul, [facility] [address] [id number] [address] [place] [address], [place] [address] Jul, [facility] [address] [id number] [address] [place] [address], [place] [address] Jun, [facility] [address] [id number] [address] [place] [address] Jun, [facility] [address] [id number] [address] [place] [address], [place] [address] Jun, [facility] [address] [id number] [address] [place] [address], [place] [address] Jun, [facility] [address] [id number] [address] [place] [address], [place] [address] May, [facility] [address] [id number] [address] [place] [address], [place] [address] May, [facility] [address] [id number] [address] [place] [address], [place] [address] May, [facility] [address] [id number] [address] [place] [address], [place] [address] May, [facility] [address] [id number] [address] [place] [address], [place] [address] May, [facility] [address] [id number] [address] [place] [address], [place] [address] May, [facility] [address] [id number] [address] [place] [address], [place] [address] Apr, [facility] [address] [id number] [address] [place] [address], [place] [address] Mar, [facility] [address] [id number] [address] [place] [address], [place] [address] Mar, [facility] [address] [id number] [address] [place] [address], [place] [address] Mar, [facility] [address] [id number] [address] [place] [address], [place] [address] Feb, [facility] [address] [id number] [address] [place] [address], [place] [address] Feb, [facility] [address] [id number] [address] [place] [address], [place] [address] Feb, [facility] [address] [id number] [address] [place] [address], [place] [address] Jan, [facility] [address] [id number] [address] [place] [address], [place] [address] Jan, [facility] [address] [id number] [address] [place] [address], [place] [address] December, [facility] [address] [id number] [address] [place] [address], [place] [address] December, [facility] [address] [id number] [address] [place] [address], [place] [address] December, [facility] [address] [id number] [address] [place] [address], [place] [address] 29 Nov, 2012 [facility] [address] [id number] [address] [place] [address], [place] [address] 24 Nov, 2012 [facility] [address] [id number] [address] [place] [address], [place] [address] Nov, [facility] [address] [id number] [address] [place] [address], [place] [address] 2012 [facility] [address] [id number] [address] [place] [address], [place] [address] 15 Nov, 2012 [facility] [address] [id number] [address] [place] [address], [place] [address] Nov, [facility] [address] [id number] [address] [place] [address], [place] [address] Oct, [facility] [address] [id number] [address] [place] [address], [place] [address] Oct, [facility] [address] [id number] [address] [place] [address], [place] [address] Oct, [facility] [address] [id number] [address] [place] [address], [place] [address] Oct, [facility] [address] [id number] [address] [place] [address], [place] [address] 28 Sep, 2012 [facility] [address] [id number] [address] [place] [address], [place] [address] Sep, [facility] [address] [id number] [address] [place] [address], [place] [address] 18 Sep, 2012 [facility] [address] [id number] [address] [place] [address], [place] [address] Sep, [facility] [address] [id number] [address] [place] [id number] Sep, [facility] [address] [id number] [address] [place] [id number] Aug, [facility] [address] [id number] [address] [place] [id number] Aug, [facility] [address] [id number] [address] [place] [phone] Aug, [facility] [address] [id number] [address] [place] [id number] Aug, [facility] [address] [id number] [address] [place] [phone] Aug, [facility] [address] [id number] [address] [place] [id number] Aug, [facility] [address] [id number] [address] [place] [id number] May, [facility] [address] [id number] [address] [place] [id number] May, IMMUNIZATIONS No Known Immunizations SOCIAL HISTORY [...]
--- OUTSIDE RECORDS SUMMARY | 2020-01-16 00:21 | XMS REPORT ---
Author Author Darien VILLALOBOS Organization [facility] Address [address] [place] [address] Care Team Providers Care Electrician Ship Name Role Phone CHRISTOPHER VILLALOBOS Unavailable PROBLEMS Type Condition ICD9-CM Code WYS43-AW Code Onset Dates Condition S tatus SNOMED Code Problem Diabetes type 1, controlled E10.9 Ac tive 68840941 Problem Type 2 diabetes mellitus with hyperglycemia E11.65 Active [id number] Problem Type 1 diabetes mellitus with hyperglycemia E10.65 Active [id number] Problem Uncontrolled type 1 diabetes mellitus without complication E10.9 Active 098034370 Problem Type 1 diabetes mellitus without complication E10. 9 Active 490125789 Problem Type 1 diabetes mellitus with diabetic polyneuropathy E10.42 Active 41541512 Problem Mood disorder F39 Active 636502 05 Problem Other chronic pain G89.29 Active 8 1869675 Problem Schizoaffective disorder, depressive type F25.1 Active [id number] ALLERGIES No Information ENCOUNTERS Encounter Location Date Diagnosis [place] [address] [address] Jun, [facility] [address] [address] Jun, [facility] [address] [address] Jun, [facility] [address] [address] May, Type 1 diabetes mellitus without complic ation E10.9 [facility] [address] [address] May, Type 1 diabetes mellitus without complic ation E10.9 ; Encounter for immunization Z23 and Mood disorder F39 [facility] [address] [address] December, [place] [address] [address] Nov, [place] [address] [address] Nov, Uncontrolled type 1 diabetes mellitus wi thout complication E10.9 [place] [address] [address] Nov, Impingement syndrome, shoulder, right M7 5.41 and Adhesive capsulitis of right shoulder M75.01 [place] [address] [address] Nov, Uncontrolled type 1 diabetes mellitus wi thout complication E10.9 [place] [address] [address] Oct, Uncontrolled type 1 diabetes mellitus wi thout complication E10.9 ; Other chronic pain G89.29 ; Pain in right shoulder M25.511 and Schizoaffective disorder, depressive type F25.1 [place] [address] [address] May, Mood disorder F39 and Controlled diabete s mellitus type 1 without complications E10.9 [place] [address] [address] May, [place] [address] [address] May, [place] [address] [address] Apr, Mood disorder F39 ; Type 1 diabetes jerome itus with diabetic polyneuropathy E10.42 and Type 1 diabetes mellitus with hyperglycemia E10.65 [place] [address] [address] Apr, Mood disorder F39 [place] [address] [address] Mar, [place] [address] [address] Feb, [facility] [address] [id number] [place] [address] Jan, [facility] [address] [place] [id number] [place] [address] Jan, [facility] [id number] [place] [address] Jan, [facility] [id number] [place] [address] December, [facility] [id number] [place] [address] December, Schizoid personality disorder in adult F 60.1 and Controlled type 1 diabetes mellitus with diabetic neuropathy, with long-term current use of insulin E10.40 [facility] [address] [place] [id number] [place] [address] December, Schizo-affective schizophrenia F25.0 [facility] [address] [place] [id number] [place] [address] Nov, [facility] [address] [place] [id number] [place] [address] Nov, Anxiety disorder, unspecified F41.9 and Schizo-affective schizophrenia F25.0 [facility] [id number] [place] [address] Nov, Schizo-affective schizophrenia F25.0 [facility] [id number] [place] [address] Oct, [facility] [id number] [place] [address] Sep, [facility] [id number] [place] [address] Sep, [facility] [id number] [place] [address] Sep, [facility] [id number] [place] [address] Aug, [facility] [address] [address] Aug, [facility] [address] [address] Jul, [place] [address] [address] Jul, Diabetes type 1, controlled E10.9 [place] [address] [address] Jun, Diabetes mellitus without mention of com plication, type II or unspecified type, uncontrolled 250.02 [place] [address] [address] Jun, Diabetes type 1, controlled E10.9 [place] [address] [address] May, Diabetes mellitus without mention of com plication, type II or unspecified type, uncontrolled 250.02 [place] [address] [address] May, Anxiety 300.00 [place] [address] [address] May, Diabetes type 1, controlled E10.9 ; Schi zo-affective schizophrenia F25.0 ; Mood disorder F39 and Bipolar 1 disorder F31.9 [place] [address] [address] May, [place] [address] [address] May, Anxiety F41.9 and Depression F32.[address] [address] Apr, Diabetes mellitus without mention of com plication, type II or unspecified type, uncontrolled 250.02 [place] [address] [address] Apr, Anxiety 300.00 and Diabetes mellitus wit hout mention of complication, type II or unspecified type, uncontrolled 250.02 [facility] [address] [place] [address] [address] [place] [address] 16 Apr, 2015 [facility] [address] [address] Apr, Anxiety 300.00 and Depression 311 [facility] [address] [place] [address] [address] [place] [address] Apr, Major depression, recurrent 296.30 ; Anx iety, generalized 300.02 and No condition on Bruce II V71.09 [facility] [address] [address] Apr, [facility] [address] [address] Mar, Diabetes mellitus without mention of com plication, type II or unspecified type, uncontrolled 250.02 and Anxiety 300.00 [facility] [address] [address] Mar, [facility] [address] [address] Feb, [facility] [address] [address] Feb, [facility] [address] [address] Feb, [facility] [address] [address] Jan, [facility] [address] [address] Jan, [facility] [address] [address] Jan, [facility] [address] [address] Jan, [facility] [address] [place] [id number] [place] [address] December, [facility] [address] [id number] [place] [id number] December, Dental examination V72.2 [facility] [address] [place] [id number] [place] [address] December, Tooth pain 525.9 [facility] [address] [id number] [place] [address] December, [facility] [address] [place] [id number] [place] [address] Nov, [facility] [id number] [place] [address] Nov, [facility] [id number] [place] [address] Oct, [facility] [id number] [place] [address] Oct, [facility] [id number] [place] [address] Sep, [facility] [id number] [place] [address] Sep, [facility] [id number] [place] [address] Sep, [facility] [id number] [place] [address] Sep, [facility] [address] [place] [id number] [place] [address] Aug, [facility] [id number] [place] [address] Aug, [facility] [id number] [place] [address] Aug, [facility] [id number] [place] [address] Aug, [facility] [id number] [place] [address] Jul, [facility] [id number] [place] [address] Jul, [facility] [address] [facility] [id number] [place] [address] Jun, [facility] [address] [id number] [place] [address] Jun, [facility] [address] [id number] [place] [address] May, [facility] [address] [id number] [place] [address] May, [facility] [address] [facility] [id number] [place] [address] May, [facility] [address] [id number] [place] [address] May, [facility] [address] [id number] [place] [address] May, [facility] [address] [id number] [place] [address] May, [facility] [address] [id number] [place] [address] Apr, [facility] [address] [id number] [place] [address] Apr, [facility] [address] [id number] [place] [address] Apr, [facility] [address] [id number] [place] [address] Apr, [facility] [address] [id number] [place] [address] 08 Apr, 2014 [facility] [address] [id number] [place] [address] Apr, [facility] [address] [id number] [place] [address] Mar, [facility] [address] [id number] [place] [address] Mar, [facility] [address] [id number] [place] [address] Mar, [facility] [address] [facility] [id number] [place] [address] Mar, [facility] [address] [facility] [id number] [place] [address] Feb, [facility] [address] [id number] [place] [address] Feb, [facility] [address] [facility] [id number] [place] [address] Feb, [facility] [address] [facility] [id number] [place] [address] Feb, [facility] [address] [facility] [id number] [place] [address] Jan, [facility] [address] [id number] [place] [address] Jan, [facility] [address] [id number] [place] [address] Jan, [facility] [address] [facility] [id number] [place] [address] Jan, [facility] [address] [id number] [place] [address] Jan, [facility] [address] [id number] [place] [address] Jan, [facility] [address] [id number] [place] [address] Jan, [facility] [address] [facility] [id number] [place] [address] Jan, [facility] [address] [id number] [place] [address] Jan, [facility] [address] [id number] [place] [address] Jan, [facility] [address] [id number] [place] [address] December, [facility] [address] [id number] [place] [address] December, [facility] [address] [id number] [place] [address] December, [facility] [address] [id number] [place] [address] December, [facility] [address] [id number] [place] [address] December, [facility] [address] [id number] [place] [address] Nov, [facility] [address] [id number] [place] [address] Nov, [facility] [address] [id number] [place] [address] Nov, [facility] [address] [id number] [place] [address] Oct, [facility] [address] [id number] [place] [address] Oct, [facility] [address] [id number] [place] [address] Oct, [facility] [address] [id number] [place] [address] Oct, [facility] [address] [id number] [place] [address] Oct, [facility] [address] [id number] [place] [address] Oct, [facility] [address] [id number] [place] [address] Oct, [facility] [address] [id number] [place] [address] Oct, [facility] [address] [id number] [place] [address] Oct, [facility] [address] [id number] [place] [address] Sep, [facility] [address] [id number] [place] [address] Sep, [facility] [address] [id number] [place] [address] Aug, [facility] [address] [id number] [place] [address] Aug, [facility] [address] [id number] [place] [address] Aug, [facility] [address] [id number] [place] [address] Aug, [facility] [address] [id number] [place] [address] Jul, [facility] [address] [id number] [place] [address] Jul, [facility] [address] [place] [id number] [place] [address] Jul, [facility] [address] [id number] [place] [address] Jul, [facility] [address] [id number] [place] [address] Jun, [facility] [address] [id number] [place] [address] Jun, [facility] [address] [id number] [place] [address] Jun, [facility] [address] [id number] [place] [address] Jun, [facility] [address] [id number] [place] [address] May, [facility] [address] [id number] [place] [address] May, [facility] [address] [id number] [place] [address] May, [facility] [address] [id number] [place] [address] 08 May, 2013 [facility] [address] [id number] [place] [address] May, [facility] [address] [id number] [place] [address] May, [facility] [address] [id number] [place] [address] Apr, [facility] [address] [id number] [place] [address] Mar, [facility] [address] [id number] [place] [address] Mar, [facility] [address] [id number] [place] [address] Mar, [facility] [address] [id number] [place] [address] Feb, [facility] [address] [id number] [place] [address] Feb, [facility] [address] [id number] [place] [address] Feb, [facility] [address] [id number] [place] [address] Jan, [facility] [address] [id number] [place] [address] Jan, [facility] [address] [id number] [place] [address] December, [facility] [address] [id number] [place] [address] December, [facility] [address] [id number] [place] [address] December, [facility] [address] [id number] [place] [address] Nov, [facility] [address] [id number] [place] [address] Nov, [facility] [address] [id number] [place] [address] 23 Nov, 2012 [facility] [address] [id number] [place] [address] 2012 [facility] [address] [id number] [place] [address] 15 Nov, 2012 [facility] [address] [id number] [place] [address] 05 Nov, 2012 [facility] [address] [id number] [place] [address] 25 Oct, 2012 [facility] [address] [id number] [place] [address] 14 Oct, 2012 [facility] [address] [id number] [place] [address] Oct, [facility] [address] [id number] [place] [address] Oct, [facility] [address] [id number] [place] [address] Sep, [facility] [address] [id number] [place] [address] Sep, [facility] [address] [id number] [place] [address] Sep, [facility] [address] [id number] [place] [address] Sep, [facility] [address] [id number] [place] [address] Sep, [facility] [address] [id number] [place] [address] Aug, [facility] [address] [id number] [place] [address] Aug, [facility] [address] [id number] [place] [address] Aug, [facility] [address] [id number] [place] [address] Aug, [facility] [address] [id number] [place] [address] Aug, [facility] [address] [id number] [place] [address] Aug, [facility] [address] [id number] [place] [address] May, [facility] [address] [id number] [place] [address] May, IMMUNIZATIONS No Known Immunizations SOCIAL HISTORY Never Assessed REASON FOR VISIT PLAN OF CARE VITAL SIGNS Height 69 in 2014-03-03 Weight 153.9 lbs 2014-03-03 Temperature 97.5 degrees Fahrenheit 2014-03-03 Heart Rate 100 bpm 2014-03-03 Respiratory Rate 16 2014-03-03 Blood pressure systolic 126 mmHg 2014-03-03 Blood pressure diastolic 84 mmHg 2014-03-03 MEDICATIONS Unknown Medications RESULTS No Results PROCEDURES No Known procedures INSTRUCTIONS MEDICATIONS ADMINISTERED No Known Medications MEDICAL (GENERAL) HISTORY Type Description Date Medical History type I diabetes Medical History hx of MRSA infections Medical History depression Medical History anxiety Surgical History I & D-MRSA Hospitalization History MRSA 2003
--- OUTSIDE RECORDS SUMMARY | 2020-01-16 00:21 | XMS REPORT ---
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 Tender Name Role Phone CHRISTOPHER VILLALOBOS Unavailable PROBLEMS Type Condition ICD9-CM Code RUO39-CJ Code Onset Dates Condition S tatus SNOMED Code Problem Diabetes type 1, controlled E10.9 Ac tive 88096009 Problem Type 2 diabetes mellitus with hyperglycemia E11.65 Active 340791235350872 Problem Other chronic pain G89.29 Active 8 3985676 Problem Schizoaffective disorder, depressive type F25.1 Active 19970191 Problem Type 1 diabetes mellitus with hyperglycemia E10.65 Active [id number] Problem Type 1 diabetes mellitus with diabetic polyneuropathy E10.42 Active 31745981 Problem Mood disorder F39 Active 211193 05 Problem Uncontrolled type 1 diabetes mellitus without complication E10.9 Active [id number] ALLERGIES No Information ENCOUNTERS Encounter Location Date Diagnosis [place] [address] [place] [id number] [address] [place] [address] December, [place] [address] [place] [id number] [address] [place] [address] Nov, [place] [address] [place] [id number] [address] [place] [address] 14 Nov, 2016 Uncontrolled type 1 diabetes mellitus without complication E10.9 [facility] [address] [facility] [id number] [address] [place] [address] 13 Nov, 2016 Impingement syndrome, should er, right M75.41 and Adhesive capsulitis of right shoulder M75.01 [facility] [address] [facility] [id number] [address] [place] [address] 03 Nov, 2016 Uncontrolled type 1 diabetes mellitus without complication E10.9 [facility] [address] [place] [id number] [address] [place] [address] Oct, Uncontrolled type 1 diabetes mellitus without complication E10.9 ; Other chronic pain G89.29 ; Pain in right shoulder M25.511 and Schizoaffective disorder, depressive type F25.1 [facility] [address] [id number] [address] [place] [address] May, Mood disorder F39 and Contro lled diabetes mellitus type 1 without complications E10.9 [facility] [address] [id number] [address] [place] [address] May, [facility] [address] [id number] [address] [place] [address] May, [facility] [address] [id number] [address] [place] [address] Apr, Mood disorder F39 ; 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 and Type 1 diabetes mellitus with hyperglycemia E10.65 [facility] [address] [id number] [address] [place] [address] Apr, Mood disorder F39 [facility] [address] [id number] [address] [place] [address] Mar, [facility] [address] [id number] [address] [place] [address] Feb, [facility] [address] [id number] [address] [place] [address] Jan, [facility] [address] [id number] [address] [place] [address] Jan, [facility] [address] [id number] [address] [place] [address] Jan, [facility] [address] [id number] [address] [place] [address] December, [facility] [address] [id number] [address] [place] [address] December, 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 and Controlled type 1 diabetes mellitus with diabetic neuropathy, with long-term current use of insulin E10.40 [facility] [address] [facility] [id number] [address] [place] [address] December, Schizo-affective schizophren ia F25.0 [facility] [address] [facility] [id number] [address] [place] [address] Nov, [facility] [address] [facility] [id number] [address] [place] [address] Nov, Anxiety disorder, unspecifie d F41.9 and Schizo-affective schizophrenia F25.0 [facility] [address] [facility] [id number] [address] [place] [address] Nov, Schizo-affective schizophren ia F25.0 [facility] [address] [facility] [id number] [address] [place] [address] Oct, [facility] [address] [facility] [id number] [address] [place] [address] Sep, [facility] [address] [facility] [id number] [address] [place] [address] Sep, [facility] [address] [facility] [id number] [address] [place] [address] Sep, [facility] [address] [facility] [id number] [address] [place] [address] Aug, [facility] [address] [facility] [id number] [address] [place] [address] Aug, [facility] [address] [facility] [id number] [address] [place] [address] Jul, [facility] [address] [place] [id number] [address] [place] [address] Jul, Diabetes type 1, controlled E10.9 [facility] [address] [facility] [id number] [address] [place] [address] Jun, Diabetes mellitus without me ntion of complication, type II or unspecified type, uncontrolled 250.02 [facility] [address] [address] Jun, Diabetes type 1, controlled E10.9 [place] [address] [address] May, Diabetes mellitus without me ntion of complication, type II or unspecified type, uncontrolled 250.02 [place] [address] [address] May, Anxiety 300.00 [place] [address] [address] May, Diabetes type 1, controlled E10.9 ; Schizo-affective schizophrenia F25.0 ; Mood disorder F39 and Bipolar 1 disorder F31.9 [place] [address] [address] May, [place] [address] [address] May, Anxiety F41.9 and Depression F32.9 [place] [address] [id number] Apr, Diabetes mellitus without me ntion of complication, type II or unspecified type, uncontrolled 250.02 [place] [address] [address] Apr, Anxiety 300.00 and Diabetes mellitus without mention of complication, type II or unspecified type, uncontrolled 250.02 [facility] [address] [address] Apr, [place] [address] [address] Apr, Anxiety 300.00 and Depressio n 311 [place] [address] [address] Apr, Major depression, recurrent 296.30 ; Anxiety, generalized 300.02 and No condition on Merrick II V71.09 [facility] [address] [id number] [address] [place] [address] Apr, [facility] [address] [id number] [address] [place] [address] Mar, Diabetes mellitus without me ntion of complication, type II or unspecified type, uncontrolled 250.02 and Anxiety 300.00 [facility] [address] [id number] [address] [place] [address] Mar, [facility] [address] [id number] [address] [place] [address] Feb, [facility] [address] [id number] [address] [place] [address] Feb, [facility] [address] [id number] [address] [place] [address] Feb, [facility] [address] [id number] [address] [place] [address] Jan, [facility] [address] [id number] [address] [place] [address] Jan, [facility] [address] [id number] [address] [place] [address] Jan, [facility] [address] [facility] [id number] [address] [place] [address] Jan, [facility] [address] [id number] [address] [place] [address] December, [facility] [address] [id number] [address] [place] [address] [id number] December, Dental examination V72.2 [facility] [address] [id number] [address] [place] [address] December, Tooth pain 525.9 [facility] [address] [id number] [address] [place] [address] December, [facility] [address] [id number] [address] [place] [address], [place] [address] 14 Nov, 2014 [facility] [address] [id number] [address] [place] [address], [place] [address] 13 Nov, 2014 [facility] [address] [id number] [address] [place] [address], [place] [address] Oct, [facility] [address] [id number] [address] [place] [address], [place] [address] Oct, [facility] [address] [id number] [address] [place] [address], [place] [address] Sep, [facility] [address] [id number] [address] [place] [address], [place] [address] Sep, [facility] [address] [id number] [address] [place] [address], [place] [address] Sep, [facility] [address] [id number] [address] [place] [address], [place] [address] Sep, [facility] [address] [id number] [address] [place] [address], [place] [address] Aug, [facility] [address] [id number] [address] [place] [address], [place] [address] Aug, [facility] [address] [id number] [address] [place] [address], [place] [address] Aug, [facility] [address] [id number] [address] [place] [address], [place] [address] Aug, [facility] [address] [id number] [address] [place] [address], [place] [address] Jul, [facility] [address] [id number] [address] [place] [address], [place] [address] Jul, [facility] [address] [id number] [address] [place] [address], [place] [address] Jun, [facility] [address] [id number] [address] [place] [address], [place] [address] Jun, [facility] [address] [id number] [address] [place] [address], [place] [address] May, [facility] [address] [id number] [address] [place] [address], [place] [address] May, [facility] [address] [id number] [address] [place] [address], [place] [address] May, [facility] [address] [id number] [address] [place] [address], [place] [address] May, [facility] [address] [id number] [address] [place] [address], [place] [address] May, [facility] [address] [id number] [address] [place] [address], [place] [address] May, [facility] [address] [id number] [address] [place] [address], [place] [address] Apr, [facility] [address] [id number] [address] [place] [address], [place] [address] Apr, [facility] [address] [id number] [address] [place] [address], [place] [address] 17 Apr, 2014 [facility] [address] [id number] [address] [place] [address], [place] [address] 17 Apr, 2014 [facility] [address] [id number] [address] [place] [address], [place] [address] 08 Apr, 2014 [facility] [address] [id number] [address] [place] [address], [place] [address] 08 Apr, 2014 [facility] [address] [id number] [address] [place] [address], [place] [address] Mar, [facility] [address] [id number] [address] [place] [address], [place] [address] Mar, [facility] [address] [id number] [address] [place] [address], [place] [address] Mar, [facility] [address] [id number] [address] [place] [address] Mar, [facility] [address] [id number] [facility] [place] [address] Feb, [facility] [address] [id number] [address] [place] [address], [place] [address] Feb, [facility] [address] [id number] [address] [place] [address], [place] [address] Feb, [facility] [address] [id number] [address] [place] [address], [place] [address] Feb, [facility] [address] [id number] [address] [place] [address], [place] [address] Jan, [facility] [address] [id number] [address] [place] [address], [place] [address] Jan, [facility] [address] [id number] [address] [place] [address], [place] [address] Jan, [facility] [address] [id number] [address] [place] [address], [place] [address] Jan, [facility] [address] [id number] [address] [place] [address], [place] [address] Jan, [facility] [address] [id number] [address] [place] [address], [place] [address] Jan, [facility] [address] [id number] [address] [place] [address], [place] [address] Jan, [facility] [address] [id number] [address] [place] [address], [place] [address] Jan, [facility] [address] [id number] [address] [place] [address], [place] [address] Jan, [facility] [address] [id number] [address] [place] [address], [place] [address] Jan, [facility] [address] [id number] [address] [place] [address], [place] [address] December, [facility] [address] [id number] [facility] [place] [address] December, [facility] [address] [id number] [facility] [place] [address] December, [facility] [address] [id number] [facility] [place] [address] December, [facility] [address] [id number] [facility] [place] [address] December, [facility] [address] [id number] [facility] [place] [address] Nov, [facility] [address] [id number] [address] [place] [address], [place] [address] Nov, [facility] [address] [id number] [address] [place] [address], [place] [address] Nov, [facility] [address] [id number] [address] [place] [address], [place] [address] Oct, [facility] [address] [id number] [address] [place] [address], [place] [address] Oct, [facility] [address] [id number] [address] [place] [address], [place] [address] Oct, [facility] [address] [id number] [address] [place] [address], [place] [address] Oct, [facility] [address] [id number] [address] [place] [address], [place] [address] Oct, [facility] [address] [id number] [address] [place] [address], [place] [address] Oct, [facility] [address] [id number] [address] [place] [address], [place] [address] Oct, [facility] [address] [id number] [address] [place] [address], [place] [address] Oct, [facility] [address] [id number] [address] [place] [address] [address] Oct, [facility] [address] [id number] [address] [place] [address], [place] [address] Sep, [facility] [address] [id number] [address] [place] [address], [place] [address] Sep, [facility] [address] [id number] [address] [place] [address], [place] [address] Aug, [facility] [address] [id number] [address] [place] [address], [place] [address] Aug, [facility] [address] [id number] [address] [place] [address], [place] [address] Aug, [facility] [address] [id number] [address] [place] [address], [place] [address] Aug, [facility] [address] [id number] [address] [place] [address], [place] [address] Jul, [facility] [address] [id number] [address] [place] [address], [place] [address] Jul, [facility] [address] [id number] [address] [place] [address], [place] [address] Jul, [facility] [address] [id number] [address] [place] [address], [place] [address] Jul, [facility] [address] [id number] [address] [place] [address], [place] [address] Jun, [facility] [address] [id number] [address] [place] [address] Jun, [facility] [address] [id number] [address] [place] [address], [place] [address] Jun, [facility] [address] [id number] [address] [place] [address], [place] [address] Jun, [facility] [address] [id number] [address] [place] [address], [place] [address] May, [facility] [address] [id number] [address] [place] [address], [place] [address] May, [facility] [address] [id number] [address] [place] [address], [place] [address] May, [facility] [address] [id number] [address] [place] [address], [place] [address] May, [facility] [address] [id number] [address] [place] [address], [place] [address] May, [facility] [address] [id number] [address] [place] [address], [place] [address] May, [facility] [address] [id number] [address] [place] [address], [place] [address] Apr, [facility] [address] [id number] [address] [place] [address], [place] [address] Mar, [facility] [address] [id number] [address] [place] [address], [place] [address] Mar, [facility] [address] [id number] [address] [place] [address], [place] [address] Mar, [facility] [address] [id number] [address] [place] [address], [place] [address] Feb, [facility] [address] [id number] [address] [place] [address], [place] [address] Feb, [facility] [address] [id number] [address] [place] [address], [place] [address] Feb, [facility] [address] [id number] [address] [place] [address], [place] [address] Jan, [facility] [address] [id number] [address] [place] [address], [place] [address] Jan, [facility] [address] [id number] [address] [place] [address], [place] [address] December, [facility] [address] [id number] [address] [place] [address], [place] [address] December, [facility] [address] [id number] [address] [place] [address], [place] [address] December, [facility] [address] [id number] [address] [place] [address], [place] [address] 29 Nov, 2012 [facility] [address] [id number] [address] [place] [address], [place] [id number] 24 Nov, 2012 [facility] [address] [id number] [address] [place] [address], [place] [address] Nov, [facility] [address] [id number] [address] [place] [address], [place] [address] 2012 [facility] [address] [id number] [address] [place] [address], [place] [address] [address], [address] [facility] [address] [id number] [address] [place] [address], [place] [address] Nov, [facility] [address] [id number] [address] [place] [address], [place] [address] Oct, [facility] [address] [id number] [address] [place] [address], [place] [address] Oct, [facility] [address] [id number] [address] [place] [address], [place] [address] Oct, [facility] [address] [id number] [address] [place] [address], [place] [address] Oct, [facility] [address] [id number] [address] [place] [address], [place] [address] 28 Sep, 2012 [facility] [address] [id number] [address] [place] [address], [place] [address] Sep, [facility] [address] [id number] [address] [place] [address], [place] [id number] 18 Sep, 2012 [facility] [address] [id number] [address] [place] [address], [place] [address] Sep, [facility] [address] [id number] [address] [place] [id number] Sep, [facility] [address] [id number] [address] [place] [id number] Aug, [facility] [address] [id number] [address] [place] [id number] Aug, [facility] [address] [id number] [address] [place] [id number] Aug, [facility] [address] [id number] [address] [place] [id number] Aug, [facility] [address] [id number] [address] [place] [id number] Aug, [facility] [address] [id number] [address] [place] [id number] Aug, [facility] [address] [id number] [address] [place] [id number] May, [facility] [address] [id number] [address] [place] [id number] May, IMMUNIZATIONS No Known Immunizations SOCIAL HISTORY [...]
--- OUTSIDE RECORDS SUMMARY | 2020-01-16 00:21 | XMS REPORT ---
Author Author Darien VILLALOBOS Organization [facility] Address [address] [place] [address] Care Team Providers Care Sas Programmer Remote Name Role Phone CHRISTOPHER VILLALOBOS Unavailable PROBLEMS Type Condition ICD9-CM Code BSU24-[id number] Code Onset Dates Condition S tatus SNOMED Code Problem Diabetes type 1, controlled E10.9 Ac tive 91159810 Problem Type 2 diabetes mellitus with hyperglycemia E11.65 Active [id number] Problem Other chronic pain G89.29 Active 8 1336415 Problem Schizoaffective disorder, depressive type F25.1 Active 47687519 Problem Type 1 diabetes mellitus with hyperglycemia E10.65 Active 949033012099710 Problem Type 1 diabetes mellitus with diabetic polyneuropathy E10.42 Active 98293274 Problem Mood disorder F39 Active 908481 05 Problem Uncontrolled type 1 diabetes mellitus without complication E10.9 Active [id number] ALLERGIES No Information ENCOUNTERS Encounter Location Date Diagnosis [place] [address] [place] [id number] [address] [place] [address] December, [place] [address] [place] [id number] [address] [place] [address] Nov, [place] [address] [place] [id number] [address] [place] [address] 14 Nov, 2016 Uncontrolled type 1 diabetes mellitus without complication E10.9 [facility] [address] [facility] [id number] [address] [place] [address] 13 Nov, 2016 Impingement syndrome, should er, right M75.41 and Adhesive capsulitis of right shoulder M75.01 [facility] [address] [facility] [id number] [address] [place] [address] 03 Nov, 2016 Uncontrolled type 1 diabetes mellitus without complication E10.9 [facility] [address] [place] [id number] [address] [place] [address] Oct, Uncontrolled type 1 diabetes mellitus without complication E10.9 ; Other chronic pain G89.29 ; Pain in right shoulder M25.511 and Schizoaffective disorder, depressive type F25.1 [facility] [address] [id number] [address] [place] [address] May, Mood disorder F39 and Contro lled diabetes mellitus type 1 without complications E10.9 [facility] [address] [id number] [address] [place] [address] May, [facility] [address] [id number] [address] [place] [address] May, [facility] [address] [id number] [address] [place] [address] Apr, Mood disorder F39 ; 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 and Type 1 diabetes mellitus with hyperglycemia E10.65 [facility] [address] [id number] [address] [place] [address] Apr, Mood disorder F39 [facility] [address] [id number] [address] [place] [address] Mar, [facility] [address] [id number] [address] [place] [address] Feb, [facility] [address] [id number] [address] [place] [address] Jan, [facility] [address] [id number] [address] [place] [address] Jan, [facility] [address] [id number] [address] [place] [address] Jan, [facility] [address] [id number] [address] [place] [address] December, [facility] [address] [id number] [address] [place] [address] December, 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 and Controlled type 1 diabetes mellitus with diabetic neuropathy, with long-term current use of insulin E10.40 [facility] [address] [facility] [id number] [address] [place] [address] December, Schizo-affective schizophren ia F25.0 [facility] [address] [facility] [id number] [address] [place] [address] Nov, [facility] [address] [facility] [id number] [address] [place] [address] Nov, Anxiety disorder, unspecifie d F41.9 and Schizo-affective schizophrenia F25.0 [facility] [address] [facility] [id number] [address] [place] [address] Nov, Schizo-affective schizophren ia F25.0 [facility] [address] [facility] [id number] [address] [place] [address] Oct, [facility] [address] [facility] [id number] [address] [place] [address] Sep, [facility] [address] [facility] [id number] [address] [place] [address] Sep, [facility] [address] [facility] [id number] [address] [place] [address] Sep, [facility] [address] [facility] [id number] [address] [place] [address] Aug, [facility] [address] [facility] [id number] [address] [place] [address] Aug, [facility] [address] [facility] [id number] [address] [place] [address] Jul, [facility] [address] [place] [id number] [address] [place] [address] Jul, Diabetes type 1, controlled E10.9 [facility] [address] [facility] [id number] [address] [place] [address] Jun, Diabetes mellitus without me ntion of complication, type II or unspecified type, uncontrolled 250.02 [facility] [address] [address] Jun, Diabetes type 1, controlled E10.9 [place] [address] [address] May, Diabetes mellitus without me ntion of complication, type II or unspecified type, uncontrolled 250.02 [place] [address] [address] May, Anxiety 300.00 [place] [address] [address] May, Diabetes type 1, controlled E10.9 ; Schizo-affective schizophrenia F25.0 ; Mood disorder F39 and Bipolar 1 disorder F31.9 [place] [address] [address] May, [place] [address] [address] May, Anxiety F41.9 and Depression F32.9 [place] [address] [address] Apr, Diabetes mellitus without me ntion of complication, type II or unspecified type, uncontrolled 250.02 [place] [address] [address] Apr, Anxiety 300.00 and Diabetes mellitus without mention of complication, type II or unspecified type, uncontrolled 250.02 [facility] [address] [address] Apr, [place] [address] [address] Apr, Anxiety 300.00 and Depressio n 311 [place] [address] [address] Apr, Major depression, recurrent 296.30 ; Anxiety, generalized 300.02 and No condition on [place] II V71.09 [facility] [address] [id number] [address] [place] [address] Apr, [facility] [address] [id number] [address] [place] [address] Mar, Diabetes mellitus without me ntion of complication, type II or unspecified type, uncontrolled 250.02 and Anxiety 300.00 [facility] [address] [id number] [address] [place] [address] Mar, [facility] [address] [id number] [address] [place] [address] Feb, [facility] [address] [id number] [address] [place] [address] Feb, [facility] [address] [id number] [address] [place] [address] Feb, [facility] [address] [id number] [address] [place] [address] Jan, [facility] [address] [id number] [address] [place] [address] Jan, [facility] [address] [id number] [address] [place] [address] Jan, [facility] [address] [facility] [id number] [address] [place] [address] Jan, [facility] [address] [id number] [address] [place] [address] December, [facility] [address] [id number] [address] [place] [id number] December, Dental examination V72.2 [facility] [address] [id number] [address] [place] [address] December, Tooth pain 525.9 [facility] [address] [id number] [address] [place] [address] December, [facility] [address] [id number] [address] [place] [address], [place] [address] 14 Nov, 2014 [facility] [address] [id number] [address] [place] [address], [place] [address] 13 Nov, 2014 [facility] [address] [id number] [address] [place] [address], [place] [address] Oct, [facility] [address] [id number] [address] [place] [address], [place] [address] Oct, [facility] [address] [id number] [address] [place] [address], [place] [address] Sep, [facility] [address] [id number] [address] [place] [address], [place] [address] Sep, [facility] [address] [id number] [address] [place] [address], [place] [address] Sep, [facility] [address] [id number] [address] [place] [address], [place] [address] Sep, [facility] [address] [id number] [address] [place] [address], [place] [address] Aug, [facility] [address] [id number] [address] [place] [address], [place] [address] Aug, [facility] [address] [id number] [address] [place] [address], [place] [address] Aug, [facility] [address] [id number] [address] [place] [address], [place] [address] Aug, [facility] [address] [id number] [address] [place] [address], [place] [address] Jul, [facility] [address] [id number] [address] [place] [address], [place] [address] Jul, [facility] [address] [id number] [address] [place] [address], [place] [address] Jun, [facility] [address] [id number] [address] [place] [address], [place] [address] Jun, [facility] [address] [id number] [address] [place] [address], [place] [address] May, [facility] [address] [id number] [address] [place] [address], [place] [address] May, [facility] [address] [id number] [address] [place] [address], [place] [address] May, [facility] [address] [id number] [address] [place] [address], [place] [address] May, [facility] [address] [id number] [address] [place] [address], [place] [address] May, [facility] [address] [id number] [address] [place] [address], [place] [address] May, [facility] [address] [id number] [address] [place] [address], [place] [address] Apr, [facility] [address] [id number] [address] [place] [address], [place] [address] Apr, [facility] [address] [id number] [address] [place] [address], [place] [address] 17 Apr, 2014 [facility] [address] [id number] [address] [place] [address], [place] [address] 17 Apr, 2014 [facility] [address] [id number] [address] [place] [address], [place] [address] 08 Apr, 2014 [facility] [address] [id number] [address] [place] [address], [place] [address] 08 Apr, 2014 [facility] [address] [id number] [address] [place] [address], [place] [address] Mar, [facility] [address] [id number] [address] [place] [address], [place] [address] Mar, [facility] [address] [id number] [address] [place] [address], [place] [address] Mar, [facility] [address] [id number] [address] [place] [address] Mar, [facility] [address] [id number] [facility] [place] [address] Feb, [facility] [address] [id number] [address] [place] [address], [place] [address] Feb, [facility] [address] [id number] [address] [place] [address], [place] [address] Feb, [facility] [address] [id number] [address] [place] [address], [place] [address] Feb, [facility] [address] [id number] [address] [place] [address], [place] [address] Jan, [facility] [address] [id number] [address] [place] [address], [place] [address] Jan, [facility] [address] [id number] [address] [place] [address], [place] [address] Jan, [facility] [address] [id number] [address] [place] [address], [place] [address] Jan, [facility] [address] [id number] [address] [place] [address], [place] [address] Jan, [facility] [address] [id number] [address] [place] [address], [place] [address] Jan, [facility] [address] [id number] [address] [place] [address], [place] [address] Jan, [facility] [address] [id number] [address] [place] [address], [place] [address] Jan, [facility] [address] [id number] [address] [place] [address], [place] [address] Jan, [facility] [address] [id number] [address] [place] [address], [place] [address] Jan, [facility] [address] [id number] [address] [place] [address], [place] [address] December, [facility] [address] [id number] [facility] [place] [address] December, [facility] [address] [id number] [facility] [place] [address] December, [facility] [address] [id number] [facility] [place] [address] December, [facility] [address] [id number] [facility] [place] [address] December, [facility] [address] [id number] [facility] [place] [address] Nov, [facility] [address] [id number] [address] [place] [address], [place] [address] Nov, [facility] [address] [id number] [address] [place] [address], [place] [address] Nov, [facility] [address] [id number] [address] [place] [address], [place] [address] Oct, [facility] [address] [id number] [address] [place] [address], [place] [address] Oct, [facility] [address] [id number] [address] [place] [address], [place] [address] Oct, [facility] [address] [id number] [address] [place] [address], [place] [address] Oct, [facility] [address] [id number] [address] [place] [address], [place] [address] Oct, [facility] [address] [id number] [address] [place] [address], [place] [address] Oct, [facility] [address] [id number] [address] [place] [address], [place] [address] Oct, [facility] [address] [id number] [address] [place] [address], [place] [address] Oct, [facility] [address] [id number] [address] [place] [address] [address] Oct, [facility] [address] [id number] [address] [place] [address], [place] [address] Sep, [facility] [address] [id number] [address] [place] [address], [place] [address] Sep, [facility] [address] [id number] [address] [place] [address], [place] [address] Aug, [facility] [address] [id number] [address] [place] [address], [place] [address] Aug, [facility] [address] [id number] [address] [place] [address], [place] [address] Aug, [facility] [address] [id number] [address] [place] [address], [place] [address] Aug, [facility] [address] [id number] [address] [place] [address], [place] [address] Jul, [facility] [address] [id number] [address] [place] [address], [place] [address] Jul, [facility] [address] [id number] [address] [place] [address], [place] [address] Jul, [facility] [address] [id number] [address] [place] [address], [place] [address] Jul, [facility] [address] [id number] [address] [place] [address], [place] [address] Jun, [facility] [address] [id number] [address] [place] [address] Jun, [facility] [address] [id number] [address] [place] [address], [place] [address] Jun, [facility] [address] [id number] [address] [place] [address], [place] [address] Jun, [facility] [address] [id number] [address] [place] [address], [place] [address] May, [facility] [address] [id number] [address] [place] [address], [place] [address] May, [facility] [address] [id number] [address] [place] [address], [place] [address] May, [facility] [address] [id number] [address] [place] [address], [place] [address] May, [facility] [address] [id number] [address] [place] [address], [place] [address] May, [facility] [address] [id number] [address] [place] [address], [place] [address] May, [facility] [address] [id number] [address] [place] [address], [place] [address] Apr, [facility] [address] [id number] [address] [place] [address], [place] [address] Mar, [facility] [address] [id number] [address] [place] [address], [place] [address] Mar, [facility] [address] [id number] [address] [place] [address], [place] [address] Mar, [facility] [address] [id number] [address] [place] [address], [place] [address] Feb, [facility] [address] [id number] [address] [place] [address], [place] [address] Feb, [facility] [address] [id number] [address] [place] [address], [place] [address] Feb, [facility] [address] [id number] [address] [place] [address], [place] [address] Jan, [facility] [address] [id number] [address] [place] [address], [place] [address] Jan, [facility] [address] [id number] [address] [place] [address], [place] [address] December, [facility] [address] [id number] [address] [place] [address], [place] [address] December, [facility] [address] [id number] [address] [place] [address], [place] [address] December, [facility] [address] [id number] [address] [place] [address], [place] [address] 29 Nov, 2012 [facility] [address] [id number] [address] [place] [address], [place] [address] 24 Nov, 2012 [facility] [address] [id number] [address] [place] [address], [place] [address] Nov, [facility] [address] [id number] [address] [place] [address], [place] [address] 2012 [facility] [address] [id number] [address] [place] [address], [place] [address] 15 Nov, 2012 [facility] [address] [id number] [address] [place] [address], [place] [address] Nov, [facility] [address] [id number] [address] [place] [address], [place] [address] Oct, [facility] [address] [id number] [address] [place] [address], [place] [address] Oct, [facility] [address] [id number] [address] [place] [address], [place] [address] Oct, [facility] [address] [id number] [address] [place] [address], [place] [address] Oct, [facility] [address] [id number] [address] [place] [address], [place] [address] 28 Sep, 2012 [facility] [address] [id number] [address] [place] [address], [place] [address] Sep, [facility] [address] [id number] [address] [place] [address], [place] [address] 18 Sep, 2012 [facility] [address] [id number] [address] [place] [address], [place] [address] Sep, [facility] [address] [id number] [address] [place] [phone] Sep, [facility] [address] [id number] [address] [place] [phone] Aug, [facility] [address] [id number] [address] [place] [phone] Aug, [facility] [address] [id number] [address] [place] [phone] Aug, [facility] [address] [id number] [address] [place] [phone] Aug, [facility] [address] [id number] [address] [place] [phone] Aug, [facility] [address] [id number] [address] [place] [id number] Aug, [facility] [address] [id number] [address] [place] [phone] May, [facility] [address] [id number] [address] [place] [id number] May, IMMUNIZATIONS No Known Immunizations SOCIAL HISTORY [...]
--- OUTSIDE RECORDS SUMMARY | 2020-01-16 00:21 | XMS REPORT ---
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 9 Active 442406362 Problem Type 1 diabetes mellitus with diabetic polyneuropathy E10.42 Active 17503822 Problem Mood disorder F39 Active 507450 05 Problem Other chronic pain G89.29 Active 8 3970781 Problem Schizoaffective disorder, depressive type F25.1 Active [id number] ALLERGIES No Information ENCOUNTERS Encounter Location Date Diagnosis [place] [address] [address] Jun, [facility] [address] [address] Jun, [facility] [address] [address] Jun, [facility] [address] [address] May, Type 1 diabetes mellitus without complic ation E10.9 [facility] [address] [address] May, Type 1 diabetes mellitus without complic ation E10.9 ; Encounter for immunization Z23 and Mood disorder F39 [facility] [address] [address] December, [place] [address] [address] Nov, [place] [address] [address] Nov, Uncontrolled type 1 diabetes mellitus wi thout complication E10.9 [place] [address] [address] Nov, Impingement syndrome, shoulder, right M7 5.41 and Adhesive capsulitis of right shoulder M75.01 [place] [address] [address] Nov, Uncontrolled type 1 diabetes mellitus wi thout complication E10.9 [place] [address] [address] Oct, Uncontrolled type 1 diabetes mellitus wi thout complication E10.9 ; Other chronic pain G89.29 ; Pain in right shoulder M25.511 and Schizoaffective disorder, depressive type F25.1 [place] [address] [address] May, Mood disorder F39 and Controlled diabete s mellitus type 1 without complications E10.9 [place] [address] [address] May, [place] [address] [address] May, [place] [address] [address] Apr, Mood disorder F39 ; Type 1 diabetes jerome itus with diabetic polyneuropathy E10.42 and Type 1 diabetes mellitus with hyperglycemia E10.65 [place] [address] [address] Apr, Mood disorder F39 [place] [address] [address] Mar, [place] [address] [address] Feb, [facility] [address] [id number] [place] [address] Jan, [facility] [address] [place] [id number] [place] [address] Jan, [facility] [address] [place] [address] [id number] [place] [address] Jan, [facility] [address] [place] [address] [id number] [place] [address] December, [facility] [address] [address] [id number] [place] [address] December, Schizoid personality disorder in adult F 60.1 and Controlled type 1 diabetes mellitus with diabetic neuropathy, with long-term current use of insulin E10.40 [facility] [id number] [place] [address] December, Schizo-affective schizophrenia F25.0 [facility] [address] [id number] [place] [address] Nov, [facility] [id number] [place] [address] Nov, Anxiety disorder, unspecified F41.9 and Schizo-affective schizophrenia F25.0 [facility] [id number] [place] [address] Nov, Schizo-affective schizophrenia F25.0 [facility] [address] [place] [id number] [place] [address] Oct, [facility] [address] [place] [id number] [place] [address] Sep, [facility] [address] [id number] [place] [address] Sep, [facility] [address] [place] [address] [id number] [place] [address] Sep, [facility] [address] [place] [address] [id number] [place] [address] Aug, [facility] [address] [address] Aug, [facility] [address] [address] Jul, [place] [address] [address] Jul, Diabetes type 1, controlled E10.9 [place] [address] [address] Jun, Diabetes mellitus without mention of com plication, type II or unspecified type, uncontrolled 250.02 [place] [address] [address] Jun, Diabetes type 1, controlled E10.9 [place] [address] [address] May, Diabetes mellitus without mention of com plication, type II or unspecified type, uncontrolled 250.02 [place] [address] [address] May, Anxiety 300.00 [place] [address] [address] May, Diabetes type 1, controlled E10.9 ; Schi zo-affective schizophrenia F25.0 ; Mood disorder F39 and Bipolar 1 disorder F31.9 [place] [address] [address] May, [place] [address] [address] May, Anxiety F41.9 and Depression F32.[address] [address] Apr, Diabetes mellitus without mention of com plication, type II or unspecified type, uncontrolled 250.02 [place] [address] [address] Apr, Anxiety 300.00 and Diabetes mellitus wit hout mention of complication, type II or unspecified type, uncontrolled 250.02 [facility] [address] [id number] [place] [address] 16 Apr, 2015 [facility] [address] [address] Apr, Anxiety 300.00 and Depression 311 [facility] [address] [place] [id number] [place] [address] Apr, Major depression, recurrent 296.30 ; Anx iety, generalized 300.02 and No condition on [place] II V71.09 [facility] [address] [address] Apr, [facility] [address] [address] Mar, Diabetes mellitus without mention of com plication, type II or unspecified type, uncontrolled 250.02 and Anxiety 300.00 [facility] [address] [address] Mar, [facility] [address] [address] Feb, [facility] [address] [address] Feb, [facility] [address] [address] Feb, [facility] [address] [address] Jan, [facility] [address] [address] Jan, [facility] [address] [address] Jan, [facility] [address] [address] Jan, [facility] [address] [place] [id number] [place] [address] December, [facility] [id number] [place] [id number] December, Dental examination V72.2 [facility] [address] [id number] [place] [address] December, Tooth pain 525.9 [facility] [address] [id number] [place] [address] December, [facility] [address] [id number] [place] [address] Nov, [facility] [address] [place] [id number] [place] [address] Nov, [facility] [id number] [place] [address] Oct, [facility] [id number] [place] [address] Oct, [facility] [address] [id number] [place] [address] Sep, [facility] [address] [place] [id number] [place] [address] Sep, [facility] [address] [place] [id number] [place] [address] Sep, [facility] [address] [place] [address] [id number] [place] [address] Sep, [facility] [address] [place] [address] [id number] [place] [address] Aug, [facility] [id number] [place] [address] Aug, [facility] [id number] [place] [address] Aug, [facility] [id number] [place] [address] Aug, [facility] [id number] [place] [address] Jul, [facility] [id number] [place] [address] Jul, [facility] [address] [facility] [id number] [place] [address] Jun, [facility] [address] [id number] [place] [address] Jun, [facility] [address] [id number] [place] [address] May, [facility] [address] [id number] [place] [address] May, [facility] [address] [facility] [id number] [place] [address] May, [facility] [address] [id number] [place] [address] May, [facility] [address] [id number] [place] [address] May, [facility] [address] [id number] [place] [address] May, [facility] [address] [id number] [place] [address] Apr, [facility] [address] [id number] [place] [address] Apr, [facility] [address] [id number] [place] [address] Apr, [facility] [address] [id number] [place] [address] Apr, [facility] [address] [id number] [place] [address] 08 Apr, 2014 [facility] [address] [id number] [place] [address] Apr, [facility] [address] [id number] [place] [address] Mar, [facility] [address] [id number] [place] [address] Mar, [facility] [address] [id number] [place] [address] Mar, [facility] [address] [facility] [id number] [facility] [place] [address] Mar, [facility] [address] [facility] [id number] [facility] [place] [address] Feb, [facility] [address] [id number] [place] [address] Feb, [facility] [address] [facility] [id number] [facility] [place] [address] Feb, [facility] [address] [facility] [id number] [facility] [place] [address] Feb, [facility] [address] [facility] [id number] [place] [address] Jan, [facility] [address] [id number] [place] [address] Jan, [facility] [address] [id number] [place] [address] Jan, [facility] [address] [facility] [id number] [place] [address] Jan, [facility] [address] [id number] [place] [address] Jan, [facility] [address] [id number] [place] [address] Jan, [facility] [address] [id number] [place] [address] Jan, [facility] [address] [facility] [id number] [place] [address] Jan, [facility] [address] [id number] [place] [address] Jan, [facility] [address] [id number] [place] [address] Jan, [facility] [address] [id number] [place] [address] December, [facility] [address] [id number] [place] [address] December, [facility] [address] [id number] [place] [address] December, [facility] [address] [id number] [place] [address] December, [facility] [address] [id number] [place] [address] December, [facility] [address] [id number] [place] [address] Nov, [facility] [address] [id number] [place] [address] Nov, [facility] [address] [id number] [place] [address] Nov, [facility] [address] [id number] [place] [address] Oct, [facility] [address] [id number] [place] [address] Oct, [facility] [address] [id number] [place] [address] Oct, [facility] [address] [id number] [place] [address] Oct, [facility] [address] [id number] [place] [address] Oct, [facility] [address] [id number] [place] [address] Oct, [facility] [address] [id number] [place] [address] Oct, [facility] [address] [id number] [place] [address] Oct, [facility] [address] [id number] [place] [address] Oct, [facility] [address] [id number] [place] [address] Sep, [facility] [address] [id number] [place] [address] Sep, [facility] [address] [id number] [place] [address] Aug, [facility] [address] [id number] [place] [address] Aug, [facility] [address] [id number] [place] [address] Aug, [facility] [address] [id number] [place] [address] Aug, [facility] [address] [id number] [place] [address] Jul, [facility] [address] [id number] [place] [address] Jul, [facility] [id number] [place] [address] Jul, [facility] [address] [id number] [place] [address] Jul, [facility] [address] [id number] [place] [address] Jun, [facility] [address] [id number] [place] [address] Jun, [facility] [address] [id number] [place] [address] Jun, [facility] [address] [id number] [place] [address] Jun, [facility] [address] [id number] [place] [address] May, [facility] [address] [id number] [place] [address] May, [facility] [address] [id number] [place] [address] May, [facility] [address] [id number] [place] [address] 08 May, 2013 [facility] [address] [id number] [place] [address] May, [facility] [address] [id number] [place] [address] May, [facility] [address] [id number] [place] [address] Apr, [facility] [address] [id number] [place] [address] Mar, [facility] [address] [id number] [place] [address] Mar, [facility] [address] [id number] [place] [address] Mar, [facility] [address] [id number] [place] [address] Feb, [facility] [address] [id number] [place] [address] Feb, [facility] [address] [id number] [place] [address] Feb, [facility] [address] [id number] [place] [address] Jan, [facility] [address] [id number] [place] [address] Jan, [facility] [address] [id number] [place] [address] December, [facility] [address] [id number] [place] [address] December, [facility] [address] [id number] [place] [address] December, [facility] [address] [id number] [place] [address] Nov, [facility] [address] [id number] [place] [address] Nov, [facility] [address] [id number] [place] [address] 23 Nov, 2012 [facility] [address] [id number] [place] [address] 2012 [facility] [address] [id number] [place] [address] 15 Nov, 2012 [facility] [address] [id number] [place] [address] 05 Nov, 2012 [facility] [address] [id number] [place] [address] 25 Oct, 2012 [facility] [address] [id number] [place] [address] 14 Oct, 2012 [facility] [address] [id number] [place] [address] Oct, [facility] [address] [id number] [place] [address] Oct, [facility] [address] [id number] [place] [address] Sep, [facility] [address] [id number] [place] [address] Sep, [facility] [address] [id number] [place] [address] Sep, [facility] [address] [id number] [place] [address] Sep, [facility] [address] [id number] [place] [address] Sep, [facility] [address] [id number] [place] [address] Aug, [facility] [address] [id number] [place] [address] Aug, [facility] [address] [id number] [place] [address] Aug, [facility] [address] [id number] [place] [address] Aug, [facility] [address] [facility] [id number] [place] [address] Aug, [facility] [address] [id number] [place] [address] Aug, [facility] [address] [id number] [place] [address] May, [facility] [address] [id number] [place] [address] May, IMMUNIZATIONS No Known Immunizations SOCIAL HISTORY Never Assessed REASON FOR VISIT PLAN OF CARE VITAL SIGNS Height 69 in 2014-02-03 Weight 150.1 lbs 2014-02-03 Temperature 97.3 degrees Fahrenheit 2014-02-03 Heart Rate 88 bpm 2014-02-03 Respiratory Rate 18 2014-02-03 Blood pressure systolic 122 mmHg 2014-02-03 Blood pressure diastolic 86 mmHg 2014-02-03 MEDICATIONS Unknown Medications RESULTS No Results PROCEDURES Procedure Date Ordered Result Body Site GLYCATED HEMOGLOBIN TEST February 03, 2014 INSTRUCTIONS MEDICATIONS ADMINISTERED No Known Medications MEDICAL (GENERAL) HISTORY Type Description Date Medical History type I diabetes Medical History hx of MRSA infections Medical History depression Medical History anxiety Surgical History I & D-[facility] Hospitalization History MRSA 2003
--- OUTSIDE RECORDS SUMMARY | 2020-01-16 00:21 | XMS REPORT ---
Author Author Darien Toscano Organization [facility] Address [address] [place] [address] Care Team Providers Care G[employer] Support Name Role Phone Everton CORDELL Unavailable PROBLEMS Type Condition ICD9-CM Code [id number] Code Onset Dates Condition S tatus SNOMED Code Problem Diabetes type 1, controlled E10.9 Ac tive 44507039 Problem Type 2 diabetes mellitus with hyperglycemia E11.65 Active [id number] Problem Other chronic pain G89.29 Active 8 7251250 Problem Schizoaffective disorder, depressive type F25.1 Active 52058727 Problem Type 1 diabetes mellitus with hyperglycemia E10.65 Active [id number] Problem Type 1 diabetes mellitus with diabetic polyneuropathy E10.42 Active 68367290 Problem Mood disorder F39 Active 664323 05 Problem Uncontrolled type 1 diabetes mellitus without complication E10.9 Active [id number] ALLERGIES No Information ENCOUNTERS Encounter Location Date Diagnosis [place] [address] [address] [facility] [id number] [address] [place] [phone] December, [place] [address] [address] [facility] [id number] [address] [place] [phone] Nov, [place] [id number] [facility] [id number] [address] [place] [phone] 14 Nov, 2016 Uncontrolled type 1 diabetes mellitus without complication E10.9 [facility] [address] [facility] [id number] [address] [place] [phone] 13 Nov, 2016 Impingement syndrome, should er, right M75.41 and Adhesive capsulitis of right shoulder M75.01 [facility] [address] [facility] [id number] [address] [place] [phone] 03 Nov, 2016 Uncontrolled type 1 diabetes mellitus without complication E10.9 [facility] [address] [facility] [id number] [address] [place] [address] Oct, Uncontrolled type 1 diabetes mellitus without complication E10.9 ; Other chronic pain G89.29 ; Pain in right shoulder M25.511 and Schizoaffective disorder, depressive type F25.1 [facility] [address] [id number] [address] [place] [address] May, Mood disorder F39 and Contro lled diabetes mellitus type 1 without complications E10.9 [facility] [address] [id number] [address] [place] [phone] May, [facility] [address] [id number] [address] [place] [address] May, [facility] [address] [id number] [address] [place] [phone] Apr, Mood disorder F39 ; 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 and Type 1 diabetes mellitus with hyperglycemia E10.65 [facility] [address] [id number] [address] [place] [phone] Apr, Mood disorder F39 [facility] [address] [id number] [address] [place] [phone] Mar, [facility] [address] [id number] [address] [place] [id number] Feb, [facility] [address] [id number] [address] [place] [address] Jan, [facility] [address] [id number] [address] [place] [phone] Jan, [facility] [address] [id number] [address] [place] [address] Jan, [facility] [address] [id number] [address] [place] [address] December, [facility] [address] [facility] [id number] [address] [place] [phone] December, 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 and Controlled type 1 diabetes mellitus with diabetic neuropathy, with long-term current use of insulin E10.40 [facility] [address] [facility] [id number] [address] [place] [address] December, Schizo-affective schizophren ia F25.0 [facility] [address] [facility] [id number] [address] [place] [phone] Nov, [facility] [address] [facility] [id number] [address] [place] [address] Nov, Anxiety disorder, unspecifie d F41.9 and Schizo-affective schizophrenia F25.0 [facility] [address] [facility] [id number] [address] [place] [phone] Nov, Schizo-affective schizophren ia F25.0 [facility] [address] [facility] [id number] [address] [place] [phone] Oct, [facility] [address] [facility] [id number] [address] [place] [phone] Sep, [facility] [address] [facility] [id number] [address] [place] [address] Sep, [facility] [address] [place] [id number] [address] [place] [phone] Sep, [facility] [address] [facility] [id number] [address] [place] [phone] Aug, [facility] [address] [facility] [id number] [address] [place] [phone] Aug, [facility] [address] [facility] [id number] [address] [place] [phone] Jul, [facility] [address] [place] [id number] [address] [place] [phone] Jul, Diabetes type 1, controlled E10.9 [facility] [address] [facility] [id number] [address] [place] [address] Jun, Diabetes mellitus without me ntion of complication, type II or unspecified type, uncontrolled 250.02 [place] [address] [address] [place] [id number] [address] [place] [address] Jun, Diabetes type 1, controlled E10.9 [place] [address] [address] [place] [id number] [place], [place] [id number] May, Diabetes mellitus without me ntion of complication, type II or unspecified type, uncontrolled 250.02 [place] [address] [address] May, Anxiety 300.00 [place] [address] [address] May, Diabetes type 1, controlled E10.9 ; Schizo-affective schizophrenia F25.0 ; Mood disorder F39 and Bipolar 1 disorder F31.9 [place] [address] [address] May, [place] [address] [address] May, Anxiety F41.9 and Depression F32.9 [place] [address] [address] Apr, Diabetes mellitus without me ntion of complication, type II or unspecified type, uncontrolled 250.02 [place] [address] [id number] Apr, Anxiety 300.00 and Diabetes mellitus without mention of complication, type II or unspecified type, uncontrolled 250.02 [place] [address] [address] [place] [id number] [address] [place] [address] Apr, [place] [address] [address] Apr, Anxiety 300.00 and Depressio n 311 [place] [address] [address] Apr, Major depression, recurrent 296.30 ; Anxiety, generalized 300.02 and No condition on [place] II V71.09 [facility] [address] [id number] [address] [place] [phone] Apr, [facility] [address] [facility] [id number] [address] [place] [phone] Mar, Diabetes mellitus without me ntion of complication, type II or unspecified type, uncontrolled 250.02 and Anxiety 300.00 [facility] [address] [id number] [address] [place] [phone] Mar, [facility] [address] [id number] [address] [place] [phone] Feb, [facility] [address] [id number] [address] [place] [phone] Feb, [facility] [address] [facility] [id number] [address] [place] [phone] Feb, [facility] [address] [facility] [id number] [address] [place] [phone] Jan, [facility] [address] [id number] [address] [place] [phone] Jan, [facility] [address] [facility] [id number] [address] [place] [phone] Jan, [facility] [address] [facility] [id number] [address] [place] [phone] Jan, [facility] [address] [facility] [id number] [address] [place] [phone] December, [facility] [address] [id number] [address] [place] [id number] December, Dental examination V72.2 [facility] [address] [place] [id number] [address] [place] [phone] December, Tooth pain 525.9 [facility] [address] [facility] [id number] [address] [place] [phone] December, [facility] [address] [id number] [address] [place] [address], [place] [address] 14 Nov, 2014 [facility] [address] [id number] [address] [place] [address], [place] [address] Nov, [facility] [address] [id number] [address] [place] [address], [place] [address] Oct, [facility] [address] [id number] [address] [place] [address], [place] [address] Oct, [facility] [address] [id number] [address] [place] [address], [place] [address] Sep, [facility] [address] [id number] [address] [place] [address], [place] [address] Sep, [facility] [address] [id number] [address] [place] [address], [place] [address] Sep, [facility] [address] [id number] [address] [place] [address], [place] [address] Sep, [facility] [address] [id number] [address] [place] [address], [place] [address] Aug, [facility] [address] [id number] [address] [place] [address], [place] [address] Aug, [facility] [address] [id number] [address] [place] [address], [place] [address] Aug, [facility] [address] [id number] [address] [place] [address], [place] [address] Aug, [facility] [address] [id number] [address] [place] [address], [place] [address] Jul, [facility] [address] [id number] [address] [place] [address], [place] [address] Jul, [facility] [address] [id number] [address] [place] [address], [place] [address] Jun, [facility] [address] [id number] [address] [place] [phone] Jun, [facility] [address] [id number] [address] [place] [address], [place] [address] May, [facility] [address] [id number] [address] [place] [address], [place] [address] May, [facility] [address] [id number] [address] [place] [address], [place] [address] May, [facility] [address] [id number] [address] [place] [address], [place] [address] May, [facility] [address] [id number] [address] [place] [address], [place] [address] May, [facility] [address] [id number] [address] [place] [address], [place] [address] May, [facility] [address] [id number] [address] [place] [address], [place] [address] Apr, [facility] [address] [id number] [address] [place] [address], [place] [address] Apr, [facility] [address] [id number] [address] [place] [address], [place] [address] Apr, [facility] [address] [id number] [address] [place] [address], [place] [address] Apr, [facility] [address] [id number] [address] [place] [address], [place] [address] Apr, [facility] [address] [id number] [address] [place] [address], [place] [address] 08 Apr, 2014 [facility] [address] [id number] [address] [place] [address], [place] [address] Mar, [facility] [address] [id number] [address] [place] [address], [place] [address] Mar, [facility] [address] [id number] [address] [place] [address], [place] [address] Mar, [facility] [address] [id number] [facility] [place] [address] Mar, [facility] [address] [id number] [facility] [place] [address] Feb, [facility] [address] [id number] [facility] [place] [address] Feb, [facility] [address] [id number] [address] [place] [address], [place] [address] Feb, [facility] [address] [id number] [address] [place] [address], [place] [address] Feb, [facility] [address] [id number] [address] [place] [address], [place] [address] Jan, [facility] [address] [id number] [address] [place] [address], [place] [address] Jan, [facility] [address] [id number] [address] [place] [address], [place] [address] Jan, [facility] [address] [id number] [address] [place] [address], [place] [address] Jan, [facility] [address] [id number] [address] [place] [address], [place] [address] Jan, [facility] [address] [id number] [address] [place] [address], [place] [address] Jan, [facility] [address] [id number] [address] [place] [address], [place] [address] Jan, [facility] [address] [id number] [address] [place] [address], [place] [address] Jan, [facility] [address] [id number] [address] [place] [address], [place] [address] Jan, [facility] [address] [id number] [address] [place] [address], [place] [address] Jan, [facility] [address] [id number] [address] [place] [address], [place] [address] December, [facility] [address] [id number] [facility] [place] [address] December, [facility] [address] [id number] [address] [place] [address], [place] [address] December, [facility] [address] [id number] [address] [place] [address], [place] [address] December, [facility] [address] [id number] [address] [place] [address], [place] [address] December, [facility] [address] [id number] [address] [place] [address], [place] [address] Nov, [facility] [address] [id number] [address] [place] [address], [place] [address] Nov, [facility] [address] [id number] [address] [place] [address], [place] [address] Nov, [facility] [address] [id number] [address] [place] [address], [place] [address] Oct, [facility] [address] [id number] [address] [place] [address], [place] [address] Oct, [facility] [address] [id number] [address] [place] [address], [place] [address] Oct, [facility] [address] [id number] [address] [place] [address], [place] [address] Oct, [facility] [address] [id number] [address] [place] [address], [place] [address] Oct, [facility] [address] [id number] [address] [place] [address], [place] [address] Oct, [facility] [address] [id number] [address] [place] [address], [place] [address] Oct, [facility] [address] [id number] [address] [place] [address], [place] [address] Oct, [facility] [address] [id number] [address] [place] [address], [place] [address] Oct, [facility] [address] [id number] [address] [place] [address], [place] [address] Sep, [facility] [address] [id number] [address] [place] [address], [place] [address] Sep, [facility] [address] [id number] [address] [place] [address], [place] [address] Aug, [facility] [address] [id number] [address] [place] [address], [place] [address] Aug, [facility] [address] [id number] [address] [place] [address], [place] [address] Aug, [facility] [address] [id number] [address] [place] [address], [place] [address] Aug, [facility] [address] [id number] [address] [place] [address], [place] [address] Jul, [facility] [address] [id number] [address] [place] [address], [place] [address] Jul, [facility] [address] [id number] [address] [place] [address], [place] [address] Jul, [facility] [address] [id number] [address] [place] [address], [place] [address] Jul, [facility] [address] [id number] [address] [place] [address], [place] [address] Jun, [facility] [address] [id number] [address] [place] [address], [place] [address] Jun, [facility] [address] [id number] [address] [place] [address], [place] [address] Jun, [facility] [address] [id number] [address] [place] [address], [place] [address] Jun, [facility] [address] [id number] [address] [place] [address], [place] [address] May, [facility] [address] [id number] [address] [place] [address], [place] [address] May, [facility] [address] [id number] [address] [place] [address], [place] [address] May, [facility] [address] [id number] [address] [place] [address], [place] [address] May, [facility] [address] [id number] [address] [place] [address], [place] [address] May, [facility] [address] [id number] [address] [place] [address], [place] [address] May, [facility] [address] [id number] [address] [place] [address], [place] [address] Apr, [facility] [address] [id number] [address] [place] [address], [place] [address] Mar, [facility] [address] [id number] [address] [place] [address], [place] [address] Mar, [facility] [address] [id number] [address] [place] [address], [place] [address] Mar, [facility] [address] [id number] [address] [place] [address], [place] [address] Feb, [facility] [address] [id number] [address] [place] [address], [place] [address] Feb, [facility] [address] [id number] [address] [place] [address], [place] [address] Feb, [facility] [address] [id number] [address] [place] [address], [place] [address] Jan, [facility] [address] [id number] [address] [place] [address], [place] [address] Jan, [facility] [address] [id number] [address] [place] [address], [place] [address] December, [facility] [address] [id number] [address] [place] [address], [place] [address] December, [facility] [address] [id number] [address] [place] [address], [place] [address] December, [facility] [address] [id number] [address] [place] [address], [place] [address] 29 Nov, 2012 [facility] [address] [id number] [address] [place] [address], [place] [address] Nov, [facility] [address] [id number] [address] [place] [address], [place] [address] Nov, [facility] [address] [id number] [address] [place] [address], [place] [address] 2012 [facility] [address] [id number] [address] [place] [address], [place] [address] 15 Nov, 2012 [facility] [address] [id number] [address] [place] [address], [place] [phone] 05 Nov, 2012 [facility] [address] [id number] [address] [place] [address], [place] [address] Oct, [facility] [address] [id number] [address] [place] [address], [place] [phone] 14 Oct, 2012 [facility] [address] [id number] [address] [place] [address], [place] [address] Oct, [facility] [address] [id number] [address] [place] [address], [place] [phone] Oct, [facility] [address] [id number] [address] [place] [address], [place] [address] 28 Sep, 2012 [facility] [address] [id number] [address] [place] [address], [place] [address] Sep, [facility] [address] [id number] [address] [place] [address], [place] [address] 18 Sep, 2012 [facility] [address] [id number] [address] [place] [address], [place] [address] 11 Sep, 2012 [facility] [address] [id number] [address] [place] [phone] Sep, [facility] [address] [id number] [address] [place] [phone] Aug, [facility] [address] [id number] [address] [place] [phone] Aug, [facility] [address] [id number] [address] [place] [phone] Aug, [facility] [address] [id number] [address] [place] [id number] Aug, [facility] [address] [id number] [address] [place] [phone] Aug, [facility] [address] [id number] [address] [place] [phone] Aug, [facility] [address] [id number] [address] [place] [phone] May, [facility] [address] [id number] [address] [place] [phone] May, IMMUNIZATIONS No Known Immunizations SOCIAL HISTORY Never Assessed REASON FOR VISIT PLAN OF CARE VITAL SIGNS MEDICATIONS Unknown Medications RESULTS No Results PROCEDURES Procedure Date Ordered Result Body Site PSYCH DIAGNOSTIC EVALUATION January 24, 2014 INSTRUCTIONS MEDICATIONS ADMINISTERED No Known Medications MEDICAL (GENERAL) HISTORY Type Description Date Medical History type I diabetes Medical History hx of MRSA infections Medical History depression Medical History anxiety Surgical History I & D-MRSA Hospitalization History MRSA 2004
--- OUTSIDE RECORDS SUMMARY | 2020-01-16 00:22 | XMS REPORT ---
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 Name Role Phone Everton CORDELL Unavailable PROBLEMS Type Condition ICD9-CM Code HAT85-SG Code Onset Dates Condition S tatus SNOMED Code Problem Diabetes type 1, controlled E10.9 Ac tive 30644661 Problem Type 2 diabetes mellitus with hyperglycemia E11.65 Active 891653363627420 Problem Other chronic pain G89.29 Active 8 7418323 Problem Schizoaffective disorder, depressive type F25.1 Active 98884341 Problem Type 1 diabetes mellitus with hyperglycemia E10.65 Active [id number] Problem Type 1 diabetes mellitus with diabetic polyneuropathy E10.42 Active 33898967 Problem Mood disorder F39 Active 437501 05 Problem Uncontrolled type 1 diabetes mellitus without complication E10.9 Active [id number] ALLERGIES No Information ENCOUNTERS Encounter Location Date Diagnosis [place] [address] [address] [facility] [id number] [address] [place] [address] December, [place] [address] [address] [facility] [id number] [address] [place] [address] Nov, [facility] [address] [facility] [id number] [address] [place] [address] 14 Nov, 2016 Uncontrolled type 1 diabetes mellitus without complication E10.9 [facility] [address] [facility] [id number] [address] [place] [address] 13 Nov, 2016 Impingement syndrome, should er, right M75.41 and Adhesive capsulitis of right shoulder M75.01 [facility] [address] [facility] [id number] [address] [place] [address] 03 Nov, 2016 Uncontrolled type 1 diabetes mellitus without complication E10.9 [facility] [address] [facility] [id number] [address] [place] [address] Oct, Uncontrolled type 1 diabetes mellitus without complication E10.9 ; Other chronic pain G89.29 ; Pain in right shoulder M25.511 and Schizoaffective disorder, depressive type F25.1 [facility] [address] [id number] [address] [place] [address] May, Mood disorder F39 and Contro lled diabetes mellitus type 1 without complications E10.9 [facility] [address] [id number] [address] [place] [address] May, [facility] [address] [id number] [address] [place] [address] May, [facility] [address] [id number] [address] [place] [address] Apr, Mood disorder F39 ; 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 and Type 1 diabetes mellitus with hyperglycemia E10.65 [facility] [address] [id number] [address] [place] [address] Apr, Mood disorder F39 [facility] [address] [id number] [address] [place] [address] Mar, [facility] [address] [id number] [address] [place] [address] Feb, [facility] [address] [id number] [address] [place] [address] Jan, [facility] [address] [id number] [address] [place] [address] Jan, [facility] [address] [id number] [address] [place] [address] Jan, [facility] [address] [id number] [address] [place] [address] December, [facility] [address] [facility] [id number] [address] [place] [address] December, 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 and Controlled type 1 diabetes mellitus with diabetic neuropathy, with long-term current use of insulin E10.40 [facility] [address] [facility] [id number] [address] [place] [address] December, Schizo-affective schizophren ia F25.0 [facility] [address] [facility] [id number] [address] [place] [phone] Nov, [facility] [address] [facility] [id number] [address] [place] [address] Nov, Anxiety disorder, unspecifie d F41.9 and Schizo-affective schizophrenia F25.0 [facility] [address] [facility] [id number] [address] [place] [id number] Nov, Schizo-affective schizophren ia F25.0 [facility] [address] [facility] [id number] [address] [place] [address] Oct, [facility] [address] [facility] [id number] [address] [place] [address] Sep, [facility] [address] [facility] [id number] [address] [place] [address] Sep, [facility] [address] [place] [id number] [address] [place] [address] Sep, [facility] [address] [facility] [id number] [address] [place] [address] Aug, [facility] [address] [facility] [id number] [address] [place] [address] Aug, [facility] [address] [facility] [id number] [address] [place] [address] Jul, [facility] [address] [place] [id number] [address] [place] [address] Jul, Diabetes type 1, controlled E10.9 [facility] [address] [facility] [id number] [address] [place] [address] Jun, Diabetes mellitus without me ntion of complication, type II or unspecified type, uncontrolled 250.02 [place] [address] [address] [place] [id number] [place] [address] Jun, Diabetes type 1, controlled E10.9 [place] [address] [address] [place] [id number] [place], [place] [id number] May, Diabetes mellitus without me ntion of complication, type II or unspecified type, uncontrolled 250.02 [place] [address] [address] May, Anxiety 300.00 [place] [address] [address] May, Diabetes type 1, controlled E10.9 ; Schizo-affective schizophrenia F25.0 ; Mood disorder F39 and Bipolar 1 disorder F31.9 [place] [address] [address] May, [place] [address] [address] May, Anxiety F41.9 and Depression F32.9 [place] [address] [address] Apr, Diabetes mellitus without me ntion of complication, type II or unspecified type, uncontrolled 250.02 [place] [address] [address] Apr, Anxiety 300.00 and Diabetes mellitus without mention of complication, type II or unspecified type, uncontrolled 250.02 [place] [address] [address] [place] [id number] [place] [address] Apr, [place] [address] [address] Apr, Anxiety 300.00 and Depressio n 311 [place] [address] [address] Apr, Major depression, recurrent 296.30 ; Anxiety, generalized 300.02 and No condition on [place] II V71.09 [facility] [address] [id number] [address] [place] [address] Apr, [facility] [address] [facility] [id number] [address] [place] [address] Mar, Diabetes mellitus without me ntion of complication, type II or unspecified type, uncontrolled 250.02 and Anxiety 300.00 [facility] [address] [id number] [address] [place] [address] Mar, [facility] [address] [id number] [address] [place] [address] Feb, [facility] [address] [id number] [address] [place] [address] Feb, [facility] [address] [facility] [id number] [address] [place] [address] Feb, [facility] [address] [facility] [id number] [address] [place] [address] Jan, [facility] [address] [id number] [address] [place] [address] Jan, [facility] [address] [facility] [id number] [address] [place] [address] Jan, [facility] [address] [facility] [id number] [address] [place] [address] Jan, [facility] [address] [facility] [id number] [address] [place] [address] December, [facility] [address] [id number] [address] [place] [id number] December, Dental examination V72.2 [facility] [address] [place] [id number] [address] [place] [address] December, Tooth pain 525.9 [facility] [address] [facility] [id number] [address] [place] [address] December, [facility] [address] [id number] [address] [place] [address], [place] [address] 14 Nov, 2014 [facility] [address] [id number] [address] [place] [address], [place] [address] Nov, [facility] [address] [id number] [address] [place] [address], [place] [address] Oct, [facility] [address] [id number] [address] [place] [address], [place] [address] Oct, [facility] [address] [id number] [address] [place] [address], [place] [address] Sep, [facility] [address] [id number] [address] [place] [address], [place] [address] Sep, [facility] [address] [id number] [address] [place] [address], [place] [address] Sep, [facility] [address] [id number] [address] [place] [address], [place] [address] Sep, [facility] [address] [id number] [address] [place] [address], [place] [address] Aug, [facility] [address] [id number] [address] [place] [address], [place] [address] Aug, [facility] [address] [id number] [address] [place] [address], [place] [address] Aug, [facility] [address] [id number] [address] [place] [address], [place] [address] Aug, [facility] [address] [id number] [address] [place] [address], [place] [address] Jul, [facility] [address] [id number] [address] [place] [address], [place] [address] Jul, [facility] [address] [id number] [address] [place] [address], [place] [address] Jun, [facility] [address] [id number] [address] [place] [phone] Jun, [facility] [address] [id number] [address] [place] [address], [place] [address] May, [facility] [address] [id number] [address] [place] [address], [place] [address] May, [facility] [address] [id number] [address] [place] [address], [place] [address] May, [facility] [address] [id number] [address] [place] [address], [place] [address] May, [facility] [address] [id number] [address] [place] [address], [place] [address] May, [facility] [address] [id number] [address] [place] [address], [place] [address] May, [facility] [address] [id number] [address] [place] [address], [place] [address] Apr, [facility] [address] [id number] [address] [place] [address], [place] [address] Apr, [facility] [address] [id number] [address] [place] [address], [place] [address] Apr, [facility] [address] [id number] [address] [place] [address], [place] [address] Apr, [facility] [address] [id number] [address] [place] [address], [place] [address] Apr, [facility] [address] [id number] [address] [place] [address], [place] [address] 08 Apr, 2014 [facility] [address] [id number] [address] [place] [address], [place] [address] Mar, [facility] [address] [id number] [address] [place] [address], [place] [address] Mar, [facility] [address] [id number] [address] [place] [address], [place] [address] Mar, [facility] [address] [id number] [facility] [place] [address] Mar, [facility] [address] [id number] [facility] [place] [address] Feb, [facility] [address] [id number] [facility] [place] [address] Feb, [facility] [address] [id number] [address] [place] [address], [place] [address] Feb, [facility] [address] [id number] [address] [place] [address], [place] [address] Feb, [facility] [address] [id number] [address] [place] [address], [place] [address] Jan, [facility] [address] [id number] [address] [place] [address], [place] [address] Jan, [facility] [address] [id number] [address] [place] [address], [place] [address] Jan, [facility] [address] [id number] [address] [place] [address], [place] [address] Jan, [facility] [address] [id number] [address] [place] [address], [place] [address] Jan, [facility] [address] [id number] [address] [place] [address], [place] [address] Jan, [facility] [address] [id number] [address] [place] [address], [place] [address] Jan, [facility] [address] [id number] [address] [place] [address], [place] [address] Jan, [facility] [address] [id number] [address] [place] [address], [place] [address] Jan, [facility] [address] [id number] [address] [place] [address], [place] [address] Jan, [facility] [address] [id number] [address] [place] [address], [place] [address] December, [facility] [address] [id number] [facility] [place] [address] December, [facility] [address] [id number] [address] [place] [address], [place] [address] December, [facility] [address] [id number] [address] [place] [address], [place] [address] December, [facility] [address] [id number] [address] [place] [address], [place] [address] December, [facility] [address] [id number] [address] [place] [address], [place] [address] Nov, [facility] [address] [id number] [address] [place] [address], [place] [address] Nov, [facility] [address] [id number] [address] [place] [address], [place] [address] Nov, [facility] [address] [id number] [address] [place] [address], [place] [address] Oct, [facility] [address] [id number] [address] [place] [address], [place] [address] Oct, [facility] [address] [id number] [address] [place] [address], [place] [address] Oct, [facility] [address] [id number] [address] [place] [address], [place] [address] Oct, [facility] [address] [id number] [address] [place] [address], [place] [address] Oct, [facility] [address] [id number] [address] [place] [address], [place] [address] Oct, [facility] [address] [id number] [address] [place] [address], [place] [address] Oct, [facility] [address] [id number] [address] [place] [address], [place] [address] Oct, [facility] [address] [id number] [address] [place] [address], [place] [address] Oct, [facility] [address] [id number] [address] [place] [address], [place] [address] Sep, [facility] [address] [id number] [address] [place] [address], [place] [address] Sep, [facility] [address] [id number] [address] [place] [address], [place] [address] Aug, [facility] [address] [id number] [address] [place] [address], [place] [address] Aug, [facility] [address] [id number] [address] [place] [address], [place] [address] Aug, [facility] [address] [id number] [address] [place] [address], [place] [address] Aug, [facility] [address] [id number] [address] [place] [address], [place] [address] Jul, [facility] [address] [id number] [address] [place] [address], [place] [address] Jul, [facility] [address] [id number] [address] [place] [address], [place] [address] Jul, [facility] [address] [id number] [address] [place] [address], [place] [address] Jul, [facility] [address] [id number] [address] [place] [address], [place] [address] Jun, [facility] [address] [id number] [address] [place] [address], [place] [address] Jun, [facility] [address] [id number] [address] [place] [address], [place] [address] Jun, [facility] [address] [id number] [address] [place] [address], [place] [address] Jun, [facility] [address] [id number] [address] [place] [address], [place] [address] May, [facility] [address] [id number] [address] [place] [address], [place] [address] May, [facility] [address] [id number] [address] [place] [address], [place] [address] May, [facility] [address] [id number] [address] [place] [address], [place] [address] May, [facility] [address] [id number] [address] [place] [address], [place] [address] May, [facility] [address] [id number] [address] [place] [address], [place] [address] May, [facility] [address] [id number] [address] [place] [address], [place] [address] Apr, [facility] [address] [id number] [address] [place] [address], [place] [address] Mar, [facility] [address] [id number] [address] [place] [address], [place] [address] Mar, [facility] [address] [id number] [address] [place] [address], [place] [address] Mar, [facility] [address] [id number] [address] [place] [address], [place] [address] Feb, [facility] [address] [id number] [address] [place] [address], [place] [address] Feb, [facility] [address] [id number] [address] [place] [address], [place] [address] Feb, [facility] [address] [id number] [address] [place] [address], [place] [address] Jan, [facility] [address] [id number] [address] [place] [address], [place] [address] Jan, [facility] [address] [id number] [address] [place] [address], [place] [address] December, [facility] [address] [id number] [address] [place] [address], [place] [address] December, [facility] [address] [id number] [address] [place] [address], [place] [address] December, [facility] [address] [id number] [address] [place] [address], [place] [address] 29 Nov, 2012 [facility] [address] [id number] [address] [place] [address], [place] [address] Nov, [facility] [address] [id number] [address] [place] [address], [place] [address] Nov, [facility] [address] [id number] [address] [place] [address], [place] [address] 2012 [facility] [address] [id number] [address] [place] [address], [place] [address] 15 Nov, 2012 [facility] [address] [id number] [address] [place] [address], [place] [address] 05 Nov, 2012 [facility] [address] [id number] [address] [place] [address], [place] [address] Oct, [facility] [address] [id number] [address] [place] [address], [place] [address] 14 Oct, 2012 [facility] [address] [id number] [address] [place] [address], [place] [address] Oct, [facility] [address] [id number] [address] [place] [address], [place] [address] Oct, [facility] [address] [id number] [address] [place] [address], [place] [address] 28 Sep, 2012 [facility] [address] [id number] [address] [place] [address], [place] [address] Sep, [facility] [address] [id number] [address] [place] [address], [place] [address] 18 Sep, 2012 [facility] [address] [id number] [address] [place] [address], [place] [address] 11 Sep, 2012 [facility] [address] [id number] [address] [place] [id number] Sep, [facility] [address] [id number] [address] [place] [phone] Aug, [facility] [address] [id number] [address] [place] [address] Aug, [facility] [address] [id number] [address] [place] [id number] Aug, [facility] [address] [id number] [address] [place] [address] Aug, [facility] [address] [id number] [address] [place] [id number] Aug, [facility] [address] [id number] [address] [place] [id number] Aug, [facility] [address] [id number] [address] [place] [address] May, [facility] [address] [id number] [address] [place] [id number] May, IMMUNIZATIONS No Known Immunizations SOCIAL HISTORY Never Assessed REASON FOR VISIT PLAN OF CARE VITAL SIGNS MEDICATIONS Unknown Medications RESULTS No Results PROCEDURES Procedure Date Ordered Result Body Site PSYTX PT&/FAMILY 30 MINUTES March 14, 2014 INSTRUCTIONS MEDICATIONS ADMINISTERED No Known Medications MEDICAL (GENERAL) HISTORY Type Description Date Medical History type I diabetes Medical History hx of MRSA infections Medical History depression Medical History anxiety Surgical History I & D-MRSA Hospitalization History MRSA 2004
--- OUTSIDE RECORDS SUMMARY | 2020-01-16 00:22 | XMS REPORT ---
Author Author Darien VILLALOBOS Organization [facility] Address [address] [place] [address] Care Team Providers Care Health Information Technologist Name Role Phone CHRISTOPHER VILLALOBOS Unavailable PROBLEMS Type Condition ICD9-CM Code GES47-XR Code Onset Dates Condition S tatus SNOMED Code Problem Diabetes type 1, controlled E10.9 Ac tive 38320640 Problem Type 2 diabetes mellitus with hyperglycemia E11.65 Active [id number] Problem Other chronic pain G89.29 Active 8 8739981 Problem Schizoaffective disorder, depressive type F25.1 Active 08023850 Problem Type 1 diabetes mellitus with hyperglycemia E10.65 Active [id number] Problem Type 1 diabetes mellitus with diabetic polyneuropathy E10.42 Active 38964670 Problem Mood disorder F39 Active 026487 05 Problem Uncontrolled type 1 diabetes mellitus without complication E10.9 Active [id number] ALLERGIES No Information ENCOUNTERS Encounter Location Date Diagnosis [place] [address] [place] [id number] [address] [place] [id number] December, [place] [address] [place] [id number] [address] [place] [address] Nov, [place] [address] [place] [id number] [address] [place] [id number] 14 Nov, 2016 Uncontrolled type 1 diabetes mellitus without complication E10.9 [facility] [address] [facility] [id number] [address] [place] [id number] 13 Nov, 2016 Impingement syndrome, should er, right M75.41 and Adhesive capsulitis of right shoulder M75.01 [facility] [address] [facility] [id number] [address] [place] [id number] 03 Nov, 2016 Uncontrolled type 1 diabetes mellitus without complication E10.9 [facility] [address] [place] [id number] [address] [place] [id number] Oct, Uncontrolled type 1 diabetes mellitus without complication E10.9 ; Other chronic pain G89.29 ; Pain in right shoulder M25.511 and Schizoaffective disorder, depressive type F25.1 [facility] [address] [id number] [address] [place] [id number] May, Mood disorder F39 and Contro lled diabetes mellitus type [address] [facility] [address] [id number] [address] [place] [id number] May, [facility] [address] [id number] [address] [place] [address] May, [facility] [address] [id number] [address] [place] [id number] Apr, Mood disorder F39 ; 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 and Type 1 diabetes mellitus with hyperglycemia E10.65 [facility] [address] [id number] [address] [place] [phone] Apr, Mood disorder F39 [facility] [address] [id number] [address] [place] [phone] Mar, [facility] [address] [id number] [address] [place] [phone] Feb, [facility] [address] [id number] [address] [place] [id number] Jan, [facility] [address] [id number] [address] [place] [address] Jan, [facility] [address] [id number] [address] [place] [phone] Jan, [facility] [address] [id number] [address] [place] [address] December, [facility] [address] [id number] [address] [place] [address] December, 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 and Controlled type 1 diabetes mellitus with diabetic neuropathy, with long-term current use of insulin E10.40 [facility] [address] [facility] [id number] [address] [place] [id number] December, Schizo-affective schizophren ia F25.0 [facility] [address] [facility] [id number] [address] [place] [phone] Nov, [facility] [address] [facility] [id number] [address] [place] [phone] Nov, Anxiety disorder, unspecifie d F41.9 and Schizo-affective schizophrenia F25.0 [facility] [address] [facility] [id number] [address] [place] [phone] Nov, Schizo-affective schizophren ia F25.0 [facility] [address] [facility] [id number] [address] [place] [phone] Oct, [facility] [address] [facility] [id number] [address] [place] [address] Sep, [facility] [address] [facility] [id number] [address] [place] [phone] Sep, [facility] [address] [facility] [id number] [address] [place] [phone] Sep, [facility] [address] [facility] [id number] [address] [place] [phone] Aug, [facility] [address] [facility] [id number] [address] [place] [phone] Aug, [facility] [address] [facility] [id number] [address] [place] [phone] Jul, [facility] [address] [place] [id number] [address] [place] [id number] Jul, Diabetes type 1, controlled E10.9 [facility] [address] [facility] [id number] [address] [place] [phone] Jun, Diabetes mellitus without me ntion of complication, type II or unspecified type, uncontrolled 250.02 [facility] [address] [address] Jun, Diabetes type 1, controlled E10.9 [place] [address] [address] May, Diabetes mellitus without me ntion of complication, type II or unspecified type, uncontrolled 250.02 [place] [address] [address] May, Anxiety 300.00 [place] [address] [address] May, Diabetes type 1, controlled E10.9 ; Schizo-affective schizophrenia F25.0 ; Mood disorder F39 and Bipolar 1 disorder F31.9 [place] [address] [address] May, [place] [address] [address] May, Anxiety F41.9 and Depression F32.9 [place] [address] [address] Apr, Diabetes mellitus without me ntion of complication, type II or unspecified type, uncontrolled 250.02 [place] [address] [address] Apr, Anxiety 300.00 and Diabetes mellitus without mention of complication, type II or unspecified type, uncontrolled 250.02 [facility] [address] [address] Apr, [place] [address] [address] Apr, Anxiety 300.00 and Depressio n 311 [place] [address] [address] Apr, Major depression, recurrent 296.30 ; Anxiety, generalized 300.02 and No condition on Page II V71.09 [facility] [address] [id number] [address] [place] [address] Apr, [facility] [address] [id number] [address] [place] [phone] Mar, Diabetes mellitus without me ntion of complication, type II or unspecified type, uncontrolled 250.[address] [facility] [address] [id number] [address] [place] [address] Mar, [facility] [address] [id number] [address] [place] [phone] Feb, [facility] [address] [id number] [address] [place] [address] Feb, [facility] [address] [id number] [address] [place] [phone] Feb, [facility] [address] [id number] [address] [place] [phone] Jan, [facility] [address] [id number] [address] [place] [id number] Jan, [facility] [address] [id number] [address] [place] [phone] Jan, [facility] [address] [facility] [id number] [address] [place] [phone] Jan, [facility] [address] [id number] [address] [place] [id number] December, [facility] [address] [id number] [address] [place] [id number] December, Dental examination V72.2 [facility] [address] [id number] [address] [place] [id number] December, Tooth pain 525.9 [facility] [address] [id number] [address] [place] [phone] December, [facility] [address] [id number] [address] [place] [address], [place] [address] 14 Nov, 2014 [facility] [address] [id number] [address] [place] [address], [place] [address] 13 Nov, 2014 [facility] [address] [id number] [address] [place] [address], [place] [address] Oct, [facility] [address] [id number] [address] [place] [address], [place] [address] Oct, [facility] [address] [id number] [address] [place] [address], [place] [address] Sep, [facility] [address] [id number] [address] [place] [address], [place] [address] Sep, [facility] [address] [id number] [address] [place] [address], [place] [address] Sep, [facility] [address] [id number] [address] [place] [address], [place] [address] Sep, [facility] [address] [id number] [address] [place] [address], [place] [address] Aug, [facility] [address] [id number] [address] [place] [address], [place] [address] Aug, [facility] [address] [id number] [address] [place] [address], [place] [address] Aug, [facility] [address] [id number] [address] [place] [address], [place] [address] Aug, [facility] [address] [id number] [address] [place] [address], [place] [address] Jul, [facility] [address] [id number] [address] [place] [address], [place] [address] Jul, [facility] [address] [id number] [address] [place] [address], [place] [address] Jun, [facility] [address] [id number] [address] [place] [address], [place] [address] Jun, [facility] [address] [id number] [address] [place] [address], [place] [address] May, [facility] [address] [id number] [address] [place] [address], [place] [address] May, [facility] [address] [id number] [address] [place] [address], [place] [address] May, [facility] [address] [id number] [address] [place] [address], [place] [address] May, [facility] [address] [id number] [address] [place] [address], [place] [address] May, [facility] [address] [id number] [address] [place] [address], [place] [address] May, [facility] [address] [id number] [address] [place] [address], [place] [address] Apr, [facility] [address] [id number] [address] [place] [address], [place] [address] Apr, [facility] [address] [id number] [address] [place] [address], [place] [address] 17 Apr, 2014 [facility] [address] [id number] [address] [place] [address], [place] [address] 17 Apr, 2014 [facility] [address] [id number] [address] [place] [address], [place] [address] 08 Apr, 2014 [facility] [address] [id number] [address] [place] [address], [place] [address] 08 Apr, 2014 [facility] [address] [id number] [address] [place] [address], [place] [address] Mar, [facility] [address] [id number] [address] [place] [address], [place] [address] Mar, [facility] [address] [id number] [address] [place] [address], [place] [address] Mar, [facility] [address] [id number] [address] [place] [address] Mar, [facility] [address] [id number] [facility] [place] [address] Feb, [facility] [address] [id number] [address] [place] [address], [place] [address] Feb, [facility] [address] [id number] [address] [place] [address], [place] [address] Feb, [facility] [address] [id number] [address] [place] [address], [place] [address] Feb, [facility] [address] [id number] [address] [place] [address], [place] [address] Jan, [facility] [address] [id number] [address] [place] [address], [place] [address] Jan, [facility] [address] [id number] [address] [place] [address], [place] [address] Jan, [facility] [address] [id number] [address] [place] [address], [place] [address] Jan, [facility] [address] [id number] [address] [place] [address], [place] [address] Jan, [facility] [address] [id number] [address] [place] [address], [place] [address] Jan, [facility] [address] [id number] [address] [place] [address], [place] [address] Jan, [facility] [address] [id number] [address] [place] [address], [place] [address] Jan, [facility] [address] [id number] [address] [place] [address], [place] [address] Jan, [facility] [address] [id number] [address] [place] [address], [place] [address] Jan, [facility] [address] [id number] [address] [place] [address], [place] [address] December, [facility] [address] [id number] [facility] [place] [address] December, [facility] [address] [id number] [facility] [place] [address] December, [facility] [address] [id number] [facility] [place] [address] December, [facility] [address] [id number] [facility] [place] [address] December, [facility] [address] [id number] [facility] [place] [address] Nov, [facility] [address] [id number] [address] [place] [address], [place] [address] Nov, [facility] [address] [id number] [address] [place] [address], [place] [address] Nov, [facility] [address] [id number] [address] [place] [address], [place] [address] Oct, [facility] [address] [id number] [address] [place] [address], [place] [address] Oct, [facility] [address] [id number] [address] [place] [address], [place] [address] Oct, [facility] [address] [id number] [address] [place] [address], [place] [address] Oct, [facility] [address] [id number] [address] [place] [address], [place] [address] Oct, [facility] [address] [id number] [address] [place] [address], [place] [address] Oct, [facility] [address] [id number] [address] [place] [address], [place] [address] Oct, [facility] [address] [id number] [address] [place] [address], [place] [address] Oct, [facility] [address] [id number] [address] [place] [address] [address] Oct, [facility] [address] [id number] [address] [place] [address], [place] [address] Sep, [facility] [address] [id number] [address] [place] [address], [place] [address] Sep, [facility] [address] [id number] [address] [place] [address], [place] [address] Aug, [facility] [address] [id number] [address] [place] [address], [place] [address] Aug, [facility] [address] [id number] [address] [place] [address], [place] [address] Aug, [facility] [address] [id number] [address] [place] [address], [place] [address] Aug, [facility] [address] [id number] [address] [place] [address], [place] [address] Jul, [facility] [address] [id number] [address] [place] [address], [place] [address] Jul, [facility] [address] [id number] [address] [place] [address], [place] [address] Jul, [facility] [address] [id number] [address] [place] [address], [place] [address] Jul, [facility] [address] [id number] [address] [place] [address], [place] [address] Jun, [facility] [address] [id number] [address] [place] [address] Jun, [facility] [address] [id number] [address] [place] [address], [place] [address] Jun, [facility] [address] [id number] [address] [place] [address], [place] [address] Jun, [facility] [address] [id number] [address] [place] [address], [place] [address] May, [facility] [address] [id number] [address] [place] [address], [place] [address] May, [facility] [address] [id number] [address] [place] [address], [place] [address] May, [facility] [address] [id number] [address] [place] [address], [place] [address] May, [facility] [address] [id number] [address] [place] [address], [place] [address] May, [facility] [address] [id number] [address] [place] [address], [place] [address] May, [facility] [address] [id number] [address] [place] [address], [place] [address] Apr, [facility] [address] [id number] [address] [place] [address], [place] [address] Mar, [facility] [address] [id number] [address] [place] [address], [place] [address] Mar, [facility] [address] [id number] [address] [place] [address], [place] [address] Mar, [facility] [address] [id number] [address] [place] [address], [place] [address] Feb, [facility] [address] [id number] [address] [place] [address], [place] [address] Feb, [facility] [address] [id number] [address] [place] [address], [place] [address] Feb, [facility] [address] [id number] [address] [place] [address], [place] [address] Jan, [facility] [address] [id number] [address] [place] [address], [place] [address] Jan, [facility] [address] [id number] [address] [place] [address], [place] [address] December, [facility] [address] [id number] [address] [place] [address], [place] [address] December, [facility] [address] [id number] [address] [place] [address], [place] [address] December, [facility] [address] [id number] [address] [place] [address], [place] [address] 29 Nov, 2012 [facility] [address] [id number] [address] [place] [address], [place] [address] 24 Nov, 2012 [facility] [address] [id number] [address] [place] [address], [place] [address] Nov, [facility] [address] [id number] [address] [place] [address], [place] [address] 2012 [facility] [address] [id number] [address] [place] [address], [place] [address] 15 Nov, 2012 [facility] [address] [id number] [address] [place] [address], [place] [address] Nov, [facility] [address] [id number] [address] [place] [address], [place] [address] Oct, [facility] [address] [id number] [address] [place] [address], [place] [address] Oct, [facility] [address] [id number] [address] [place] [address], [place] [address] Oct, [facility] [address] [id number] [address] [place] [address], [place] [address] Oct, [facility] [address] [id number] [address] [place] [address], [place] [address] 28 Sep, 2012 [facility] [address] [id number] [address] [place] [address], [place] [address] Sep, [facility] [address] [id number] [address] [place] [address], [place] [address] 18 Sep, 2012 [facility] [address] [id number] [address] [place] [address], [place] [address] Sep, [facility] [address] [id number] [address] [place] [id number] Sep, [facility] [address] [id number] [address] [place] [id number] Aug, [facility] [address] [id number] [address] [place] [phone] Aug, [facility] [address] [id number] [address] [place] [phone] Aug, [facility] [address] [id number] [address] [place] [phone] Aug, [facility] [address] [id number] [address] [place] [phone] Aug, [facility] [address] [id number] [address] [place] [phone] Aug, [facility] [address] [id number] [address] [place] [id number] May, [facility] [address] [id number] [address] [place] [id number] May, IMMUNIZATIONS No Known Immunizations SOCIAL HISTORY [...]
--- OUTSIDE RECORDS SUMMARY | 2020-01-16 00:22 | XMS REPORT ---
Author Author Darien VILLALOBOS Organization [facility] Address [address] [place] [address] Care Team Providers Care Placement Secretary Name Role Phone CHRISTOPHER VILLALOBOS Unavailable PROBLEMS Type Condition ICD9-CM Code [id number] Code Onset Dates Condition S tatus SNOMED Code Problem Diabetes type 1, controlled E10.9 Ac tive 52317673 Problem Type 2 diabetes mellitus with hyperglycemia E11.65 Active [id number] Problem Other chronic pain G89.29 Active 8 6326372 Problem Schizoaffective disorder, depressive type F25.1 Active 68773022 Problem Type 1 diabetes mellitus with hyperglycemia E10.65 Active [id number] Problem Type 1 diabetes mellitus with diabetic polyneuropathy E10.42 Active 54754282 Problem Mood disorder F39 Active 738632 05 Problem Uncontrolled type 1 diabetes mellitus without complication E10.9 Active [id number] ALLERGIES No Information ENCOUNTERS Encounter Location Date Diagnosis [place] [address] [place] [id number] [place] [address] December, [place] [address] [place] [id number] [address] [place] [address] Nov, [place] [address] [place] [id number] [address] [place] [address] 14 Nov, 2016 Uncontrolled type 1 diabetes mellitus without complication E10.9 [facility] [address] [facility] [id number] [address] [place] [address] 13 Nov, 2016 Impingement syndrome, should er, right M75.41 and Adhesive capsulitis of right shoulder M75.01 [facility] [address] [facility] [id number] [address] [place] [address] 03 Nov, 2016 Uncontrolled type 1 diabetes mellitus without complication E10.9 [facility] [address] [place] [id number] [address] [place] [address] Oct, Uncontrolled type 1 diabetes mellitus without complication E10.9 ; Other chronic pain G89.29 ; Pain in right shoulder M25.511 and Schizoaffective disorder, depressive type F25.1 [facility] [address] [id number] [address] [place] [address] May, Mood disorder F39 and Contro lled diabetes mellitus type 1 without complications E10.9 [facility] [address] [id number] [address] [place] [address] May, [facility] [address] [id number] [address] [place] [address] May, [facility] [address] [id number] [address] [place] [address] Apr, Mood disorder F39 ; 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 and Type 1 diabetes mellitus with hyperglycemia E10.65 [facility] [address] [id number] [address] [place] [address] Apr, Mood disorder F39 [facility] [address] [id number] [address] [place] [address] Mar, [facility] [address] [id number] [address] [place] [address] Feb, [facility] [address] [id number] [address] [place] [address] Jan, [facility] [address] [id number] [address] [place] [address] Jan, [facility] [address] [id number] [address] [place] [address] Jan, [facility] [address] [id number] [address] [place] [address] December, [facility] [address] [id number] [address] [place] [address] December, 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 and Controlled type 1 diabetes mellitus with diabetic neuropathy, with long-term current use of insulin E10.40 [facility] [address] [facility] [id number] [address] [place] [address] December, Schizo-affective schizophren ia F25.0 [facility] [address] [facility] [id number] [address] [place] [address] Nov, [facility] [address] [facility] [id number] [address] [place] [address] Nov, Anxiety disorder, unspecifie d F41.9 and Schizo-affective schizophrenia F25.0 [facility] [address] [facility] [id number] [address] [place] [address] Nov, Schizo-affective schizophren ia F25.0 [facility] [address] [facility] [id number] [address] [place] [address] Oct, [facility] [address] [facility] [id number] [address] [place] [address] Sep, [facility] [address] [facility] [id number] [address] [place] [address] Sep, [facility] [address] [facility] [id number] [address] [place] [address] Sep, [facility] [address] [facility] [id number] [address] [place] [address] Aug, [facility] [address] [facility] [id number] [address] [place] [address] Aug, [facility] [address] [facility] [id number] [address] [place] [address] Jul, [facility] [address] [place] [id number] [address] [place] [address] Jul, Diabetes type 1, controlled E10.9 [facility] [address] [facility] [id number] [address] [place] [address] Jun, Diabetes mellitus without me ntion of complication, type II or unspecified type, uncontrolled 250.02 [facility] [address] [address] Jun, Diabetes type 1, controlled E10.9 [place] [address] [address] May, Diabetes mellitus without me ntion of complication, type II or unspecified type, uncontrolled 250.02 [place] [address] [address] May, Anxiety 300.00 [place] [address] [address] May, Diabetes type 1, controlled E10.9 ; Schizo-affective schizophrenia F25.0 ; Mood disorder F39 and Bipolar 1 disorder F31.9 [place] [address] [address] May, [place] [address] [address] May, Anxiety F41.9 and Depression F32.9 [place] [address] [address] Apr, Diabetes mellitus without me ntion of complication, type II or unspecified type, uncontrolled 250.02 [place] [address] [address] Apr, Anxiety 300.00 and Diabetes mellitus without mention of complication, type II or unspecified type, uncontrolled 250.02 [facility] [address] [address] Apr, [place] [address] [address] Apr, Anxiety 300.00 and Depressio n 311 [place] [address] [address] Apr, Major depression, recurrent 296.30 ; Anxiety, generalized 300.02 and No condition on [place] V71.09 [facility] [address] [id number] [address] [place] [address] Apr, [facility] [address] [id number] [address] [place] [address] Mar, Diabetes mellitus without me ntion of complication, type II or unspecified type, uncontrolled 250.02 and Anxiety 300.00 [facility] [address] [id number] [address] [place] [address] Mar, [facility] [address] [id number] [address] [place] [address] Feb, [facility] [address] [id number] [address] [place] [address] Feb, [facility] [address] [id number] [address] [place] [address] Feb, [facility] [address] [id number] [address] [place] [address] Jan, [facility] [address] [id number] [address] [place] [address] Jan, [facility] [address] [id number] [address] [place] [address] Jan, [facility] [address] [facility] [id number] [address] [place] [address] Jan, [facility] [address] [id number] [address] [place] [address] December, [facility] [address] [id number] [address] [place] [id number] December, Dental examination V72.2 [facility] [address] [id number] [address] [place] [address] December, Tooth pain 525.9 [facility] [address] [id number] [address] [place] [address] December, [facility] [address] [id number] [address] [place] [address], [place] [address] 14 Nov, 2014 [facility] [address] [id number] [address] [place] [address], [place] [address] 13 Nov, 2014 [facility] [address] [id number] [address] [place] [address], [place] [address] Oct, [facility] [address] [id number] [address] [place] [address], [place] [address] Oct, [facility] [address] [id number] [address] [place] [address], [place] [address] Sep, [facility] [address] [id number] [address] [place] [address], [place] [address] Sep, [facility] [address] [id number] [address] [place] [address], [place] [address] Sep, [facility] [address] [id number] [address] [place] [address], [place] [address] Sep, [facility] [address] [id number] [address] [place] [address], [place] [address] Aug, [facility] [address] [id number] [address] [place] [address], [place] [address] Aug, [facility] [address] [id number] [address] [place] [address], [place] [address] Aug, [facility] [address] [id number] [address] [place] [address], [place] [address] Aug, [facility] [address] [id number] [address] [place] [address], [place] [address] Jul, [facility] [address] [id number] [address] [place] [address], [place] [address] Jul, [facility] [address] [id number] [address] [place] [address], [place] [address] Jun, [facility] [address] [id number] [address] [place] [address], [place] [address] Jun, [facility] [address] [id number] [address] [place] [address], [place] [address] May, [facility] [address] [id number] [address] [place] [address], [place] [address] May, [facility] [address] [id number] [address] [place] [address], [place] [address] May, [facility] [address] [id number] [address] [place] [address], [place] [address] May, [facility] [address] [id number] [address] [place] [address], [place] [address] May, [facility] [address] [id number] [address] [place] [address], [place] [address] May, [facility] [address] [id number] [address] [place] [address], [place] [address] Apr, [facility] [address] [id number] [address] [place] [address], [place] [address] Apr, [facility] [address] [id number] [address] [place] [address], [place] [address] 17 Apr, 2014 [facility] [address] [id number] [address] [place] [address], [place] [address] 17 Apr, 2014 [facility] [address] [id number] [address] [place] [address], [place] [address] 08 Apr, 2014 [facility] [address] [id number] [address] [place] [address], [place] [address] 08 Apr, 2014 [facility] [address] [id number] [address] [place] [address], [place] [address] Mar, [facility] [address] [id number] [address] [place] [address], [place] [address] Mar, [facility] [address] [id number] [address] [place] [address], [place] [address] Mar, [facility] [address] [id number] [address] [place] [address] Mar, [facility] [address] [id number] [facility] [place] [address] Feb, [facility] [address] [id number] [address] [place] [address], [place] [address] Feb, [facility] [address] [id number] [address] [place] [address], [place] [address] Feb, [facility] [address] [id number] [address] [place] [address], [place] [address] Feb, [facility] [address] [id number] [address] [place] [address], [place] [address] Jan, [facility] [address] [id number] [address] [place] [address], [place] [address] Jan, [facility] [address] [id number] [address] [place] [address], [place] [address] Jan, [facility] [address] [id number] [address] [place] [address], [place] [address] Jan, [facility] [address] [id number] [address] [place] [address], [place] [address] Jan, [facility] [address] [id number] [address] [place] [address], [place] [address] Jan, [facility] [address] [id number] [address] [place] [address], [place] [address] Jan, [facility] [address] [id number] [address] [place] [address], [place] [address] Jan, [facility] [address] [id number] [address] [place] [address], [place] [address] Jan, [facility] [address] [id number] [address] [place] [address], [place] [address] Jan, [facility] [address] [id number] [address] [place] [address], [place] [address] December, [facility] [address] [id number] [facility] [place] [address] December, [facility] [address] [id number] [facility] [place] [address] December, [facility] [address] [id number] [facility] [place] [address] December, [facility] [address] [id number] [facility] [place] [address] December, [facility] [address] [id number] [facility] [place] [address] Nov, [facility] [address] [id number] [address] [place] [address], [place] [address] Nov, [facility] [address] [id number] [address] [place] [address], [place] [address] Nov, [facility] [address] [id number] [address] [place] [address], [place] [address] Oct, [facility] [address] [id number] [address] [place] [address], [place] [address] Oct, [facility] [address] [id number] [address] [place] [address], [place] [address] Oct, [facility] [address] [id number] [address] [place] [address], [place] [address] Oct, [facility] [address] [id number] [address] [place] [address], [place] [address] Oct, [facility] [address] [id number] [address] [place] [address], [place] [address] Oct, [facility] [address] [id number] [address] [place] [address], [place] [address] Oct, [facility] [address] [id number] [address] [place] [address], [place] [address] Oct, [facility] [address] [id number] [address] [place] [address] [address] Oct, [facility] [address] [id number] [address] [place] [address], [place] [address] Sep, [facility] [address] [id number] [address] [place] [address], [place] [address] Sep, [facility] [address] [id number] [address] [place] [address], [place] [address] Aug, [facility] [address] [id number] [address] [place] [address], [place] [address] Aug, [facility] [address] [id number] [address] [place] [address], [place] [address] Aug, [facility] [address] [id number] [address] [place] [address], [place] [address] Aug, [facility] [address] [id number] [address] [place] [address], [place] [address] Jul, [facility] [address] [id number] [address] [place] [address], [place] [address] Jul, [facility] [address] [id number] [address] [place] [address], [place] [address] Jul, [facility] [address] [id number] [address] [place] [address], [place] [address] Jul, [facility] [address] [id number] [address] [place] [address], [place] [address] Jun, [facility] [address] [id number] [address] [place] [address] Jun, [facility] [address] [id number] [address] [place] [address], [place] [address] Jun, [facility] [address] [id number] [address] [place] [address], [place] [address] Jun, [facility] [address] [id number] [address] [place] [address], [place] [address] May, [facility] [address] [id number] [address] [place] [address], [place] [address] May, [facility] [address] [id number] [address] [place] [address], [place] [address] May, [facility] [address] [id number] [address] [place] [address], [place] [address] May, [facility] [address] [id number] [address] [place] [address], [place] [address] May, [facility] [address] [id number] [address] [place] [address], [place] [address] May, [facility] [address] [id number] [address] [place] [address], [place] [address] Apr, [facility] [address] [id number] [address] [place] [address], [place] [address] Mar, [facility] [address] [id number] [address] [place] [address], [place] [address] Mar, [facility] [address] [id number] [address] [place] [address], [place] [address] Mar, [facility] [address] [id number] [address] [place] [address], [place] [address] Feb, [facility] [address] [id number] [address] [place] [address], [place] [address] Feb, [facility] [address] [id number] [address] [place] [address], [place] [address] Feb, [facility] [address] [id number] [address] [place] [address], [place] [address] Jan, [facility] [address] [id number] [address] [place] [address], [place] [address] Jan, [facility] [address] [id number] [address] [place] [address], [place] [address] December, [facility] [address] [id number] [address] [place] [address], [place] [address] December, [facility] [address] [id number] [address] [place] [address], [place] [address] December, [facility] [address] [id number] [address] [place] [address], [place] [address] 29 Nov, 2012 [facility] [address] [id number] [address] [place] [address], [place] [address] 24 Nov, 2012 [facility] [address] [id number] [address] [place] [address], [place] [address] Nov, [facility] [address] [id number] [address] [place] [id number], [place] [id number] 2012 [facility] [address] [id number] [address] [place] [id number], [place] [id number] 15 Nov, 2012 [facility] [address] [id number] [address] [place] [id number], [place] [id number] Nov, [facility] [address] [id number] [address] [place] [id number], [place] [id number] Oct, [facility] [address] [id number] [address] [place] [id number], [place] [id number] Oct, [facility] [address] [id number] [address] [place] [id number], [place] [id number] Oct, [facility] [address] [id number] [address] [place] [id number], [place] [id number] Oct, [facility] [address] [id number] [address] [place] [id number], [place] [id number] 28 Sep, 2012 [facility] [address] [id number] [address] [place] [id number], [place] [id number] Sep, [facility] [address] [id number] [address] [place] [id number], [place] [id number] 18 Sep, 2012 [facility] [address] [id number] [address] [place] [id number], [place] [id number] Sep, [facility] [address] [id number] [address] [place] [id number] Sep, [facility] [address] [id number] [address] [place] [phone] Aug, [facility] [address] [id number] [address] [place] [id number] Aug, [facility] [address] [id number] [address] [place] [id number] Aug, [facility] [address] [id number] [address] [place] [id number] Aug, [facility] [address] [id number] [address] [place] [id number] Aug, [facility] [address] [id number] [address] [place] [id number] Aug, [facility] [address] [id number] [address] [place] [id number] May, [facility] [address] [id number] [address] [place] [id number] May, IMMUNIZATIONS No Known Immunizations SOCIAL HISTORY [...]
--- OUTSIDE RECORDS SUMMARY | 2020-01-16 00:22 | XMS REPORT ---
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 Name Role Phone CHRISTOPHER VILLALOBOS Unavailable PROBLEMS Type Condition ICD9-CM Code LMN55-SX Code Onset Dates Condition S tatus SNOMED Code Problem Diabetes type 1, controlled E10.9 Ac tive 74972743 Problem Type 2 diabetes mellitus with hyperglycemia E11.65 Active [id number] Problem Other chronic pain G89.29 Active 8 1492427 Problem Schizoaffective disorder, depressive type F25.1 Active 97432055 Problem Type 1 diabetes mellitus with hyperglycemia E10.65 Active [id number] Problem Type 1 diabetes mellitus with diabetic polyneuropathy E10.42 Active 03793608 Problem Mood disorder F39 Active 875777 05 Problem Uncontrolled type 1 diabetes mellitus without complication E10.9 Active [id number] ALLERGIES No Information ENCOUNTERS Encounter Location Date Diagnosis [place] [address] [place] [id number] [address] [place] [address] December, [place] [address] [place] [id number] [address] [place] [address] Nov, [place] [address] [place] [id number] [address] [place] [address] 14 Nov, 2016 Uncontrolled type 1 diabetes mellitus without complication E10.9 [facility] [address] [facility] [id number] [address] [place] [address] 13 Nov, 2016 Impingement syndrome, should er, right M75.41 and Adhesive capsulitis of right shoulder M75.01 [facility] [address] [facility] [id number] [address] [place] [address] 03 Nov, 2016 Uncontrolled type 1 diabetes mellitus without complication E10.9 [facility] [address] [place] [id number] [address] [place] [address] Oct, Uncontrolled type 1 diabetes mellitus without complication E10.9 ; Other chronic pain G89.29 ; Pain in right shoulder M25.511 and Schizoaffective disorder, depressive type F25.1 [facility] [address] [id number] [address] [place] [address] May, Mood disorder F39 and Contro lled diabetes mellitus type 1 without complications E10.9 [facility] [address] [id number] [address] [place] [address] May, [facility] [address] [id number] [address] [place] [address] May, [facility] [address] [id number] [address] [place] [address] Apr, Mood disorder F39 ; 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 and Type 1 diabetes mellitus with hyperglycemia E10.65 [facility] [address] [id number] [address] [place] [address] Apr, Mood disorder F39 [facility] [address] [id number] [address] [place] [address] Mar, [facility] [address] [id number] [address] [place] [address] Feb, [facility] [address] [id number] [address] [place] [address] Jan, [facility] [address] [id number] [address] [place] [address] Jan, [facility] [address] [id number] [address] [place] [address] Jan, [facility] [address] [id number] [address] [place] [address] December, [facility] [address] [id number] [address] [place] [address] December, 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 and Controlled type 1 diabetes mellitus with diabetic neuropathy, with long-term current use of insulin E10.40 [facility] [address] [facility] [id number] [address] [place] [address] December, Schizo-affective schizophren ia F25.0 [facility] [address] [facility] [id number] [address] [place] [address] Nov, [facility] [address] [facility] [id number] [address] [place] [address] Nov, Anxiety disorder, unspecifie d F41.9 and Schizo-affective schizophrenia F25.0 [facility] [address] [facility] [id number] [address] [place] [address] Nov, Schizo-affective schizophren ia F25.0 [facility] [address] [facility] [id number] [address] [place] [address] Oct, [facility] [address] [facility] [id number] [address] [place] [address] Sep, [facility] [address] [facility] [id number] [address] [place] [address] Sep, [facility] [address] [facility] [id number] [address] [place] [address] Sep, [facility] [address] [facility] [id number] [address] [place] [address] Aug, [facility] [address] [facility] [id number] [address] [place] [address] Aug, [facility] [address] [facility] [id number] [address] [place] [address] Jul, [facility] [address] [place] [id number] [address] [place] [address] Jul, Diabetes type 1, controlled E10.9 [facility] [address] [facility] [id number] [address] [place] [address] Jun, Diabetes mellitus without me ntion of complication, type II or unspecified type, uncontrolled 250.02 [facility] [address] [address] Jun, Diabetes type 1, controlled E10.9 [place] [address] [address] May, Diabetes mellitus without me ntion of complication, type II or unspecified type, uncontrolled 250.02 [place] [address] [address] May, Anxiety 300.00 [place] [address] [address] May, Diabetes type 1, controlled E10.9 ; Schizo-affective schizophrenia F25.0 ; Mood disorder F39 and Bipolar 1 disorder F31.9 [place] [address] [address] May, [place] [address] [address] May, Anxiety F41.9 and Depression F32.9 [place] [address] [address] Apr, Diabetes mellitus without me ntion of complication, type II or unspecified type, uncontrolled 250.02 [place] [address] [address] Apr, Anxiety 300.00 and Diabetes mellitus without mention of complication, type II or unspecified type, uncontrolled 250.02 [facility] [address] [address] Apr, [place] [address] [address] Apr, Anxiety 300.00 and Depressio n 311 [place] [address] [address] Apr, Major depression, recurrent 296.30 ; Anxiety, generalized 300.02 and No condition on Windber II V71.09 [facility] [address] [id number] [address] [place] [address] Apr, [facility] [address] [id number] [address] [place] [address] Mar, Diabetes mellitus without me ntion of complication, type II or unspecified type, uncontrolled 250.02 and Anxiety 300.00 [facility] [address] [id number] [address] [place] [address] Mar, [facility] [address] [id number] [address] [place] [address] Feb, [facility] [address] [id number] [address] [place] [address] Feb, [facility] [address] [id number] [address] [place] [address] Feb, [facility] [address] [id number] [address] [place] [address] Jan, [facility] [address] [id number] [address] [place] [address] Jan, [facility] [address] [id number] [address] [place] [address] Jan, [facility] [address] [facility] [id number] [address] [place] [address] Jan, [facility] [address] [id number] [address] [place] [address] December, [facility] [address] [id number] [address] [place] [id number] December, Dental examination V72.2 [facility] [address] [id number] [address] [place] [address] December, Tooth pain 525.9 [facility] [address] [id number] [address] [place] [address] December, [facility] [address] [id number] [address] [place] [address], [place] [address] 14 Nov, 2014 [facility] [address] [id number] [address] [place] [address], [place] [address] 13 Nov, 2014 [facility] [address] [id number] [address] [place] [address], [place] [address] Oct, [facility] [address] [id number] [address] [place] [address], [place] [address] Oct, [facility] [address] [id number] [address] [place] [address], [place] [address] Sep, [facility] [address] [id number] [address] [place] [address], [place] [address] Sep, [facility] [address] [id number] [address] [place] [address], [place] [address] Sep, [facility] [address] [id number] [address] [place] [address], [place] [address] Sep, [facility] [address] [id number] [address] [place] [address], [place] [address] Aug, [facility] [address] [id number] [address] [place] [address], [place] [address] Aug, [facility] [address] [id number] [address] [place] [address], [place] [address] Aug, [facility] [address] [id number] [address] [place] [address], [place] [address] Aug, [facility] [address] [id number] [address] [place] [address], [place] [address] Jul, [facility] [address] [id number] [address] [place] [address], [place] [address] Jul, [facility] [address] [id number] [address] [place] [address], [place] [address] Jun, [facility] [address] [id number] [address] [place] [address], [place] [address] Jun, [facility] [address] [id number] [address] [place] [address], [place] [address] May, [facility] [address] [id number] [address] [place] [address], [place] [address] May, [facility] [address] [id number] [address] [place] [address], [place] [address] May, [facility] [address] [id number] [address] [place] [address], [place] [address] May, [facility] [address] [id number] [address] [place] [address], [place] [address] May, [facility] [address] [id number] [address] [place] [address], [place] [address] May, [facility] [address] [id number] [address] [place] [address], [place] [address] Apr, [facility] [address] [id number] [address] [place] [address], [place] [address] Apr, [facility] [address] [id number] [address] [place] [address], [place] [address] 17 Apr, 2014 [facility] [address] [id number] [address] [place] [address], [place] [address] 17 Apr, 2014 [facility] [address] [id number] [address] [place] [address], [place] [address] 08 Apr, 2014 [facility] [address] [id number] [address] [place] [address], [place] [address] 08 Apr, 2014 [facility] [address] [id number] [address] [place] [address], [place] [address] Mar, [facility] [address] [id number] [address] [place] [address], [place] [address] Mar, [facility] [address] [id number] [address] [place] [address], [place] [address] Mar, [facility] [address] [id number] [address] [place] [address] Mar, [facility] [address] [id number] [facility] [place] [address] Feb, [facility] [address] [id number] [address] [place] [address], [place] [address] Feb, [facility] [address] [id number] [address] [place] [address], [place] [address] Feb, [facility] [address] [id number] [address] [place] [address], [place] [address] Feb, [facility] [address] [id number] [address] [place] [address], [place] [address] Jan, [facility] [address] [id number] [address] [place] [address], [place] [address] Jan, [facility] [address] [id number] [address] [place] [address], [place] [address] Jan, [facility] [address] [id number] [address] [place] [address], [place] [address] Jan, [facility] [address] [id number] [address] [place] [address], [place] [address] Jan, [facility] [address] [id number] [address] [place] [address], [place] [address] Jan, [facility] [address] [id number] [address] [place] [address], [place] [address] Jan, [facility] [address] [id number] [address] [place] [address], [place] [address] Jan, [facility] [address] [id number] [address] [place] [address], [place] [address] Jan, [facility] [address] [id number] [address] [place] [address], [place] [address] Jan, [facility] [address] [id number] [address] [place] [address], [place] [address] December, [facility] [address] [id number] [facility] [place] [address] December, [facility] [address] [id number] [facility] [place] [address] December, [facility] [address] [id number] [facility] [place] [address] December, [facility] [address] [id number] [facility] [place] [address] December, [facility] [address] [id number] [facility] [place] [address] Nov, [facility] [address] [id number] [address] [place] [address], [place] [address] Nov, [facility] [address] [id number] [address] [place] [address], [place] [address] Nov, [facility] [address] [id number] [address] [place] [address], [place] [address] Oct, [facility] [address] [id number] [address] [place] [address], [place] [address] Oct, [facility] [address] [id number] [address] [place] [address], [place] [address] Oct, [facility] [address] [id number] [address] [place] [address], [place] [address] Oct, [facility] [address] [id number] [address] [place] [address], [place] [address] Oct, [facility] [address] [id number] [address] [place] [address], [place] [address] Oct, [facility] [address] [id number] [address] [place] [address], [place] [address] Oct, [facility] [address] [id number] [address] [place] [address], [place] [address] Oct, [facility] [address] [id number] [address] [place] [address] [address] Oct, [facility] [address] [id number] [address] [place] [address], [place] [address] Sep, [facility] [address] [id number] [address] [place] [address], [place] [address] Sep, [facility] [address] [id number] [address] [place] [address], [place] [address] Aug, [facility] [address] [id number] [address] [place] [address], [place] [address] Aug, [facility] [address] [id number] [address] [place] [address], [place] [address] Aug, [facility] [address] [id number] [address] [place] [address], [place] [address] Aug, [facility] [address] [id number] [address] [place] [address], [place] [address] Jul, [facility] [address] [id number] [address] [place] [address], [place] [address] Jul, [facility] [address] [id number] [address] [place] [address], [place] [address] Jul, [facility] [address] [id number] [address] [place] [address], [place] [address] Jul, [facility] [address] [id number] [address] [place] [address], [place] [address] Jun, [facility] [address] [id number] [address] [place] [address] Jun, [facility] [address] [id number] [address] [place] [address], [place] [address] Jun, [facility] [address] [id number] [address] [place] [address], [place] [address] Jun, [facility] [address] [id number] [address] [place] [address], [place] [address] May, [facility] [address] [id number] [address] [place] [address], [place] [address] May, [facility] [address] [id number] [address] [place] [address], [place] [address] May, [facility] [address] [id number] [address] [place] [address], [place] [address] May, [facility] [address] [id number] [address] [place] [address], [place] [address] May, [facility] [address] [id number] [address] [place] [address], [place] [address] May, [facility] [address] [id number] [address] [place] [address], [place] [address] Apr, [facility] [address] [id number] [address] [place] [address], [place] [address] Mar, [facility] [address] [id number] [address] [place] [address], [place] [address] Mar, [facility] [address] [id number] [address] [place] [address], [place] [address] Mar, [facility] [address] [id number] [address] [place] [address], [place] [address] Feb, [facility] [address] [id number] [address] [place] [address], [place] [address] Feb, [facility] [address] [id number] [address] [place] [address], [place] [address] Feb, [facility] [address] [id number] [address] [place] [address], [place] [address] Jan, [facility] [address] [id number] [address] [place] [address], [place] [address] Jan, [facility] [address] [id number] [address] [place] [address], [place] [address] December, [facility] [address] [id number] [address] [place] [address], [place] [address] December, [facility] [address] [id number] [address] [place] [address], [place] [address] December, [facility] [address] [id number] [address] [place] [address], [place] [address] 29 Nov, 2012 [facility] [address] [id number] [address] [place] [address], [place] [address] 24 Nov, 2012 [facility] [address] [id number] [address] [place] [address], [place] [address] Nov, [facility] [address] [id number] [address] [place] [address], [place] [address] 2012 [facility] [address] [id number] [address] [place] [address], [place] [address] 15 Nov, 2012 [facility] [address] [id number] [address] [place] [address], [place] [address] Nov, [facility] [address] [id number] [address] [place] [address], [place] [address] Oct, [facility] [address] [id number] [address] [place] [address], [place] [address] Oct, [facility] [address] [id number] [address] [place] [address], [place] [address] Oct, [facility] [address] [id number] [address] [place] [address], [place] [address] Oct, [facility] [address] [id number] [address] [place] [address], [place] [address] 28 Sep, 2012 [facility] [address] [id number] [address] [place] [address], [place] [address] Sep, [facility] [address] [id number] [address] [place] [address], [place] [address] 18 Sep, 2012 [facility] [address] [id number] [address] [place] [address], [place] [address] Sep, [facility] [address] [id number] [address] [place] [address] Sep, [facility] [address] [id number] [address] [place] [address] Aug, [facility] [address] [id number] [address] [place] [address] Aug, [facility] [address] [id number] [address] [place] [id number] Aug, [facility] [address] [id number] [address] [place] [id number] Aug, [facility] [address] [id number] [address] [place] [address] Aug, [facility] [address] [id number] [address] [place] [address] Aug, [facility] [address] [id number] [address] [place] [id number] May, [facility] [address] [id number] [address] [place] [id number] May, IMMUNIZATIONS No Known Immunizations SOCIAL HISTORY [...]
--- OUTSIDE RECORDS SUMMARY | 2020-01-16 00:22 | XMS REPORT ---
Author Author Darien VILLALOBOS Organization [facility] Address [address] [place] [address] Care Team Providers Care Newspaper Writer Name Role Phone CHRISTOPHER VILLALOBOS Unavailable PROBLEMS Type Condition ICD9-CM Code XGV90-RS Code Onset Dates Condition S tatus SNOMED Code Problem Diabetes type 1, controlled E10.9 Ac tive 16217656 Problem Type 2 diabetes mellitus with hyperglycemia E11.65 Active [id number] Problem Other chronic pain G89.29 Active 8 9324867 Problem Schizoaffective disorder, depressive type F25.1 Active 27400813 Problem Type 1 diabetes mellitus with hyperglycemia E10.65 Active [id number] Problem Type 1 diabetes mellitus with diabetic polyneuropathy E10.42 Active 83428084 Problem Mood disorder F39 Active 150287 05 Problem Uncontrolled type 1 diabetes mellitus without complication E10.9 Active [id number] ALLERGIES No Information ENCOUNTERS Encounter Location Date Diagnosis [place] [address] [place] [id number] [address] [place] [id number] December, [place] [address] [place] [id number] [address] [place] [address] Nov, [place] [address] [place] [id number] [address] [place] [id number] 14 Nov, 2016 Uncontrolled type 1 diabetes mellitus without complication E10.9 [facility] [address] [facility] [id number] [address] [place] [id number] 13 Nov, 2016 Impingement syndrome, should er, right M75.41 and Adhesive capsulitis of right shoulder M75.01 [facility] [address] [facility] [id number] [address] [place] [id number] 03 Nov, 2016 Uncontrolled type 1 diabetes mellitus without complication E10.9 [facility] [address] [place] [id number] [address] [place] [id number] Oct, Uncontrolled type 1 diabetes mellitus without complication E10.9 ; Other chronic pain G89.29 ; Pain in right shoulder M25.511 and Schizoaffective disorder, depressive type F25.1 [facility] [address] [id number] [address] [place] [id number] May, Mood disorder F39 and Contro lled diabetes mellitus type 1 without complications E10.9 [facility] [address] [id number] [address] [place] [phone] May, [facility] [address] [id number] [address] [place] [phone] May, [facility] [address] [id number] [address] [place] [id number] Apr, Mood disorder F39 ; 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 and Type 1 diabetes mellitus with hyperglycemia E10.65 [facility] [address] [id number] [address] [place] [phone] Apr, Mood disorder F39 [facility] [address] [id number] [address] [place] [phone] Mar, [facility] [address] [id number] [address] [place] [phone] Feb, [facility] [address] [id number] [address] [place] [address] Jan, [facility] [address] [id number] [address] [place] [id number] Jan, [facility] [address] [id number] [address] [place] [phone] Jan, [facility] [address] [id number] [address] [place] [id number] December, [facility] [address] [id number] [address] [place] [id number] December, 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 and Controlled type 1 diabetes mellitus with diabetic neuropathy, with long-term current use of insulin E10.40 [facility] [address] [facility] [id number] [address] [place] [id number] December, Schizo-affective schizophren ia F25.0 [facility] [address] [facility] [id number] [address] [place] [id number] Nov, [facility] [address] [facility] [id number] [address] [place] [id number] Nov, Anxiety disorder, unspecifie d F41.9 and Schizo-affective schizophrenia F25.0 [facility] [address] [facility] [id number] [address] [place] [phone] Nov, Schizo-affective schizophren ia F25.0 [facility] [address] [facility] [id number] [address] [place] [id number] Oct, [facility] [address] [facility] [id number] [address] [place] [id number] Sep, [facility] [address] [facility] [id number] [address] [place] [address] Sep, [facility] [address] [facility] [id number] [address] [place] [id number] Sep, [facility] [address] [facility] [id number] [address] [place] [phone] Aug, [facility] [address] [facility] [id number] [address] [place] [id number] Aug, [facility] [address] [facility] [id number] [address] [place] [id number] Jul, [facility] [address] [place] [id number] [address] [place] [id number] Jul, Diabetes type 1, controlled E10.9 [facility] [address] [facility] [id number] [address] [place] [id number] Jun, Diabetes mellitus without me ntion of complication, type II or unspecified type, uncontrolled 250.02 [facility] [address] [id number] Jun, Diabetes type 1, controlled E10.9 [place] [address] [address] May, Diabetes mellitus without me ntion of complication, type II or unspecified type, uncontrolled 250.02 [place] [address] [address] May, Anxiety 300.00 [place] [address] [address] May, Diabetes type 1, controlled E10.9 ; Schizo-affective schizophrenia F25.0 ; Mood disorder F39 and Bipolar 1 disorder F31.9 [place] [address] [address] May, [place] [address] [address] May, Anxiety F41.9 and Depression F32.9 [place] [address] [address] Apr, Diabetes mellitus without me ntion of complication, type II or unspecified type, uncontrolled 250.02 [place] [address] [id number] Apr, Anxiety 300.00 and Diabetes mellitus without mention of complication, type II or unspecified type, uncontrolled 250.02 [facility] [address] [id number] Apr, [place] [address] [address] Apr, Anxiety 300.00 and Depressio n 311 [place] [address] [address] Apr, Major depression, recurrent 296.30 ; Anxiety, generalized 300.02 and No condition on [place] V71.09 [facility] [address] [id number] [address] [place] [address] Apr, [facility] [address] [id number] [address] [place] [id number] Mar, Diabetes mellitus without me ntion of complication, type II or unspecified type, uncontrolled 250.02 and Anxiety 300.00 [facility] [address] [id number] [address] [place] [address] Mar, [facility] [address] [id number] [address] [place] [phone] Feb, [facility] [address] [id number] [address] [place] [phone] Feb, [facility] [address] [id number] [address] [place] [id number] Feb, [facility] [address] [id number] [address] [place] [id number] Jan, [facility] [address] [id number] [address] [place] [id number] Jan, [facility] [address] [id number] [address] [place] [phone] Jan, [facility] [address] [facility] [id number] [address] [place] [address] Jan, [facility] [address] [id number] [address] [place] [phone] December, [facility] [address] [id number] [address] [place] [address] [id number] December, Dental examination V72.2 [facility] [address] [id number] [address] [place] [id number] December, Tooth pain 525.9 [facility] [address] [id number] [address] [place] [phone] December, [facility] [address] [id number] [address] [place] [address], [place] [address] 14 Nov, 2014 [facility] [address] [id number] [address] [place] [address], [place] [address] 13 Nov, 2014 [facility] [address] [id number] [address] [place] [address], [place] [address] Oct, [facility] [address] [id number] [address] [place] [address], [place] [address] Oct, [facility] [address] [id number] [address] [place] [address], [place] [address] Sep, [facility] [address] [id number] [address] [place] [address], [place] [address] Sep, [facility] [address] [id number] [address] [place] [address], [place] [address] Sep, [facility] [address] [id number] [address] [place] [address], [place] [address] Sep, [facility] [address] [id number] [address] [place] [address], [place] [address] Aug, [facility] [address] [id number] [address] [place] [address], [place] [address] Aug, [facility] [address] [id number] [address] [place] [address], [place] [address] Aug, [facility] [address] [id number] [address] [place] [address], [place] [address] Aug, [facility] [address] [id number] [address] [place] [address], [place] [address] Jul, [facility] [address] [id number] [address] [place] [address], [place] [address] Jul, [facility] [address] [id number] [address] [place] [address], [place] [address] Jun, [facility] [address] [id number] [address] [place] [address], [place] [address] Jun, [facility] [address] [id number] [address] [place] [address], [place] [address] May, [facility] [address] [id number] [address] [place] [address], [place] [address] May, [facility] [address] [id number] [address] [place] [address], [place] [address] May, [facility] [address] [id number] [address] [place] [address], [place] [address] May, [facility] [address] [id number] [address] [place] [address], [place] [address] May, [facility] [address] [id number] [address] [place] [address], [place] [address] May, [facility] [address] [id number] [address] [place] [address], [place] [address] Apr, [facility] [address] [id number] [address] [place] [address], [place] [address] Apr, [facility] [address] [id number] [address] [place] [address], [place] [address] 17 Apr, 2014 [facility] [address] [id number] [address] [place] [address], [place] [address] 17 Apr, 2014 [facility] [address] [id number] [address] [place] [address], [place] [address] 08 Apr, 2014 [facility] [address] [id number] [address] [place] [address], [place] [address] 08 Apr, 2014 [facility] [address] [id number] [address] [place] [address], [place] [address] Mar, [facility] [address] [id number] [address] [place] [address], [place] [address] Mar, [facility] [address] [id number] [address] [place] [address], [place] [address] Mar, [facility] [address] [id number] [address] [place] [address] Mar, [facility] [address] [id number] [facility] [place] [address] Feb, [facility] [address] [id number] [address] [place] [address], [place] [address] Feb, [facility] [address] [id number] [address] [place] [address], [place] [address] Feb, [facility] [address] [id number] [address] [place] [address], [place] [address] Feb, [facility] [address] [id number] [address] [place] [address], [place] [address] Jan, [facility] [address] [id number] [address] [place] [address], [place] [address] Jan, [facility] [address] [id number] [address] [place] [address], [place] [address] Jan, [facility] [address] [id number] [address] [place] [address], [place] [address] Jan, [facility] [address] [id number] [address] [place] [address], [place] [address] Jan, [facility] [address] [id number] [address] [place] [address], [place] [address] Jan, [facility] [address] [id number] [address] [place] [address], [place] [address] Jan, [facility] [address] [id number] [address] [place] [address], [place] [address] Jan, [facility] [address] [id number] [address] [place] [address], [place] [address] Jan, [facility] [address] [id number] [address] [place] [address], [place] [address] Jan, [facility] [address] [id number] [address] [place] [address], [place] [address] December, [facility] [address] [id number] [facility] [place] [address] December, [facility] [address] [id number] [facility] [place] [address] December, [facility] [address] [id number] [facility] [place] [address] December, [facility] [address] [id number] [facility] [place] [address] December, [facility] [address] [id number] [facility] [place] [address] Nov, [facility] [address] [id number] [address] [place] [address], [place] [address] Nov, [facility] [address] [id number] [address] [place] [address], [place] [address] Nov, [facility] [address] [id number] [address] [place] [address], [place] [address] Oct, [facility] [address] [id number] [address] [place] [address], [place] [address] Oct, [facility] [address] [id number] [address] [place] [address], [place] [address] Oct, [facility] [address] [id number] [address] [place] [address], [place] [address] Oct, [facility] [address] [id number] [address] [place] [address], [place] [address] Oct, [facility] [address] [id number] [address] [place] [address], [place] [address] Oct, [facility] [address] [id number] [address] [place] [address], [place] [address] Oct, [facility] [address] [id number] [address] [place] [address], [place] [address] Oct, [facility] [address] [id number] [address] [place] [address] [address] Oct, [facility] [address] [id number] [address] [place] [address], [place] [address] Sep, [facility] [address] [id number] [address] [place] [address], [place] [address] Sep, [facility] [address] [id number] [address] [place] [address], [place] [address] Aug, [facility] [address] [id number] [address] [place] [address], [place] [address] Aug, [facility] [address] [id number] [address] [place] [address], [place] [address] Aug, [facility] [address] [id number] [address] [place] [address], [place] [address] Aug, [facility] [address] [id number] [address] [place] [address], [place] [address] Jul, [facility] [address] [id number] [address] [place] [address], [place] [address] Jul, [facility] [address] [id number] [address] [place] [address], [place] [address] Jul, [facility] [address] [id number] [address] [place] [address], [place] [address] Jul, [facility] [address] [id number] [address] [place] [address], [place] [address] Jun, [facility] [address] [id number] [address] [place] [address] Jun, [facility] [address] [id number] [address] [place] [address], [place] [address] Jun, [facility] [address] [id number] [address] [place] [address], [place] [address] Jun, [facility] [address] [id number] [address] [place] [address], [place] [address] May, [facility] [address] [id number] [address] [place] [address], [place] [address] May, [facility] [address] [id number] [address] [place] [address], [place] [address] May, [facility] [address] [id number] [address] [place] [address], [place] [address] May, [facility] [address] [id number] [address] [place] [address], [place] [address] May, [facility] [address] [id number] [address] [place] [address], [place] [address] May, [facility] [address] [id number] [address] [place] [address], [place] [address] Apr, [facility] [address] [id number] [address] [place] [address], [place] [address] Mar, [facility] [address] [id number] [address] [place] [address], [place] [address] Mar, [facility] [address] [id number] [address] [place] [address], [place] [address] Mar, [facility] [address] [id number] [address] [place] [address], [place] [address] Feb, [facility] [address] [id number] [address] [place] [address], [place] [address] Feb, [facility] [address] [id number] [address] [place] [address], [place] [address] Feb, [facility] [address] [id number] [address] [place] [address], [place] [address] Jan, [facility] [address] [id number] [address] [place] [address], [place] [address] Jan, [facility] [address] [id number] [address] [place] [address], [place] [address] December, [facility] [address] [id number] [address] [place] [address], [place] [address] December, [facility] [address] [id number] [address] [place] [address], [place] [address] December, [facility] [address] [id number] [address] [place] [address], [place] [address] 29 Nov, 2012 [facility] [address] [id number] [address] [place] [address], [place] [address] 24 Nov, 2012 [facility] [address] [id number] [address] [place] [address], [place] [address] Nov, [facility] [address] [id number] [address] [place] [address], [place] [address] 2012 [facility] [address] [id number] [address] [place] [address], [place] [address] 15 Nov, 2012 [facility] [address] [id number] [address] [place] [address], [place] [address] Nov, [facility] [address] [id number] [address] [place] [address], [place] [address] Oct, [facility] [address] [id number] [address] [place] [address], [place] [address] Oct, [facility] [address] [id number] [address] [place] [address], [place] [id number] Oct, [facility] [address] [id number] [address] [place] [address], [place] [id number] Oct, [facility] [address] [id number] [address] [place] [address], [place] [id number] 28 Sep, 2012 [facility] [address] [id number] [address] [place] [address], [place] [id number] Sep, [facility] [address] [id number] [address] [place] [address], [place] [id number] 18 Sep, 2012 [facility] [address] [id number] [address] [place] [address], [place] [id number] Sep, [facility] [address] [id number] [address] [place] [phone] Sep, [facility] [address] [id number] [address] [place] [phone] Aug, [facility] [address] [id number] [address] [place] [phone] Aug, [facility] [address] [id number] [address] [place] [id number] Aug, [facility] [address] [id number] [address] [place] [phone] Aug, [facility] [address] [id number] [address] [place] [id number] Aug, [facility] [address] [id number] [address] [place] [phone] Aug, [facility] [address] [id number] [address] [place] [phone] May, [facility] [address] [id number] [address] [place] [id number] May, IMMUNIZATIONS No Known Immunizations SOCIAL HISTORY [...]
--- OUTSIDE RECORDS SUMMARY | 2020-01-16 00:22 | XMS REPORT ---
Author Author Darien VILLALOBOS Organization [facility] Address [address] [place] [address] Care Team Providers Care Rn Acls Name Role Phone CHRISTOPHER VILLALOBOS Unavailable PROBLEMS Type Condition ICD9-CM Code CFL64-AS Code Onset Dates Condition S tatus SNOMED Code Problem Diabetes type 1, controlled E10.9 Ac tive 49264153 Problem Type 2 diabetes mellitus with hyperglycemia E11.65 Active 910305392725650 Problem Other chronic pain G89.29 Active 8 2198204 Problem Schizoaffective disorder, depressive type F25.1 Active 91476357 Problem Type 1 diabetes mellitus with hyperglycemia E10.65 Active [id number] Problem Type 1 diabetes mellitus with diabetic polyneuropathy E10.42 Active 01429799 Problem Mood disorder F39 Active 046580 05 Problem Uncontrolled type 1 diabetes mellitus without complication E10.9 Active [id number] ALLERGIES No Information ENCOUNTERS Encounter Location Date Diagnosis [place] [address] [place] [id number] [address] [place] [address] December, [place] [address] [place] [id number] [address] [place] [address] Nov, [place] [address] [place] [id number] [address] [place] [address] 14 Nov, 2016 Uncontrolled type 1 diabetes mellitus without complication E10.9 [facility] [address] [facility] [id number] [address] [place] [address] 13 Nov, 2016 Impingement syndrome, should er, right M75.41 and Adhesive capsulitis of right shoulder M75.01 [facility] [address] [facility] [id number] [address] [place] [address] 03 Nov, 2016 Uncontrolled type 1 diabetes mellitus without complication E10.9 [facility] [address] [place] [id number] [address] [place] [address] Oct, Uncontrolled type 1 diabetes mellitus without complication E10.9 ; Other chronic pain G89.29 ; Pain in right shoulder M25.511 and Schizoaffective disorder, depressive type F25.1 [facility] [address] [id number] [address] [place] [address] May, Mood disorder F39 and Contro lled diabetes mellitus type 1 without complications E10.9 [facility] [address] [id number] [address] [place] [address] May, [facility] [address] [id number] [address] [place] [address] May, [facility] [address] [id number] [address] [place] [address] Apr, Mood disorder F39 ; 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 and Type 1 diabetes mellitus with hyperglycemia E10.65 [facility] [address] [id number] [address] [place] [address] Apr, Mood disorder F39 [facility] [address] [id number] [address] [place] [address] Mar, [facility] [address] [id number] [address] [place] [address] Feb, [facility] [address] [id number] [address] [place] [address] Jan, [facility] [address] [id number] [address] [place] [address] Jan, [facility] [address] [id number] [address] [place] [address] Jan, [facility] [address] [id number] [address] [place] [address] December, [facility] [address] [id number] [address] [place] [address] December, 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 and Controlled type 1 diabetes mellitus with diabetic neuropathy, with long-term current use of insulin E10.40 [facility] [address] [facility] [id number] [address] [place] [address] December, Schizo-affective schizophren ia F25.0 [facility] [address] [facility] [id number] [address] [place] [address] Nov, [facility] [address] [facility] [id number] [address] [place] [address] Nov, Anxiety disorder, unspecifie d F41.9 and Schizo-affective schizophrenia F25.0 [facility] [address] [facility] [id number] [address] [place] [address] Nov, Schizo-affective schizophren ia F25.0 [facility] [address] [facility] [id number] [address] [place] [address] Oct, [facility] [address] [facility] [id number] [address] [place] [address] Sep, [facility] [address] [facility] [id number] [address] [place] [address] Sep, [facility] [address] [facility] [id number] [address] [place] [address] Sep, [facility] [address] [facility] [id number] [address] [place] [address] Aug, [facility] [address] [facility] [id number] [address] [place] [address] Aug, [facility] [address] [facility] [id number] [address] [place] [address] Jul, [facility] [address] [place] [id number] [address] [place] [address] Jul, Diabetes type 1, controlled E10.9 [facility] [address] [facility] [id number] [address] [place] [address] Jun, Diabetes mellitus without me ntion of complication, type II or unspecified type, uncontrolled 250.02 [facility] [address] [address] Jun, Diabetes type 1, controlled E10.9 [place] [address] [address] May, Diabetes mellitus without me ntion of complication, type II or unspecified type, uncontrolled 250.02 [place] [address] [address] May, Anxiety 300.00 [place] [address] [address] May, Diabetes type 1, controlled E10.9 ; Schizo-affective schizophrenia F25.0 ; Mood disorder F39 and Bipolar 1 disorder F31.9 [place] [address] [address] May, [place] [address] [address] May, Anxiety F41.9 and Depression F32.9 [place] [address] [address] Apr, Diabetes mellitus without me ntion of complication, type II or unspecified type, uncontrolled 250.02 [place] [address] [address] Apr, Anxiety 300.00 and Diabetes mellitus without mention of complication, type II or unspecified type, uncontrolled 250.02 [facility] [address] [address] Apr, [place] [address] [address] Apr, Anxiety 300.00 and Depressio n 311 [place] [address] [address] Apr, Major depression, recurrent 296.30 ; Anxiety, generalized 300.02 and No condition on [place] II V71.09 [facility] [address] [id number] [address] [place] [address] Apr, [facility] [address] [id number] [address] [place] [address] Mar, Diabetes mellitus without me ntion of complication, type II or unspecified type, uncontrolled 250.02 and Anxiety 300.00 [facility] [address] [id number] [address] [place] [address] Mar, [facility] [address] [id number] [address] [place] [address] Feb, [facility] [address] [id number] [address] [place] [address] Feb, [facility] [address] [id number] [address] [place] [address] Feb, [facility] [address] [id number] [address] [place] [address] Jan, [facility] [address] [id number] [address] [place] [address] Jan, [facility] [address] [id number] [address] [place] [address] Jan, [facility] [address] [facility] [id number] [address] [place] [address] Jan, [facility] [address] [id number] [address] [place] [address] December, [facility] [address] [id number] [address] [place] [id number] December, Dental examination V72.2 [facility] [address] [id number] [address] [place] [address] December, Tooth pain 525.9 [facility] [address] [id number] [address] [place] [address] December, [facility] [address] [id number] [address] [place] [address], [place] [address] 14 Nov, 2014 [facility] [address] [id number] [address] [place] [address], [place] [address] 13 Nov, 2014 [facility] [address] [id number] [address] [place] [address], [place] [address] Oct, [facility] [address] [id number] [address] [place] [address], [place] [address] Oct, [facility] [address] [id number] [address] [place] [address], [place] [address] Sep, [facility] [address] [id number] [address] [place] [address], [place] [address] Sep, [facility] [address] [id number] [address] [place] [address], [place] [address] Sep, [facility] [address] [id number] [address] [place] [address], [place] [address] Sep, [facility] [address] [id number] [address] [place] [address], [place] [address] Aug, [facility] [address] [id number] [address] [place] [address], [place] [address] Aug, [facility] [address] [id number] [address] [place] [address], [place] [address] Aug, [facility] [address] [id number] [address] [place] [address], [place] [address] Aug, [facility] [address] [id number] [address] [place] [address], [place] [address] Jul, [facility] [address] [id number] [address] [place] [address], [place] [address] Jul, [facility] [address] [id number] [address] [place] [address], [place] [address] Jun, [facility] [address] [id number] [address] [place] [address], [place] [address] Jun, [facility] [address] [id number] [address] [place] [address], [place] [address] May, [facility] [address] [id number] [address] [place] [address], [place] [address] May, [facility] [address] [id number] [address] [place] [address], [place] [address] May, [facility] [address] [id number] [address] [place] [address], [place] [address] May, [facility] [address] [id number] [address] [place] [address], [place] [address] May, [facility] [address] [id number] [address] [place] [address], [place] [address] May, [facility] [address] [id number] [address] [place] [address], [place] [address] Apr, [facility] [address] [id number] [address] [place] [address], [place] [address] Apr, [facility] [address] [id number] [address] [place] [address], [place] [address] 17 Apr, 2014 [facility] [address] [id number] [address] [place] [address], [place] [address] 17 Apr, 2014 [facility] [address] [id number] [address] [place] [address], [place] [address] 08 Apr, 2014 [facility] [address] [id number] [address] [place] [address], [place] [address] 08 Apr, 2014 [facility] [address] [id number] [address] [place] [address], [place] [address] Mar, [facility] [address] [id number] [address] [place] [address], [place] [address] Mar, [facility] [address] [id number] [address] [place] [address], [place] [address] Mar, [facility] [address] [id number] [address] [place] [address] Mar, [facility] [address] [id number] [facility] [place] [address] Feb, [facility] [address] [id number] [address] [place] [address], [place] [address] Feb, [facility] [address] [id number] [address] [place] [address], [place] [address] Feb, [facility] [address] [id number] [address] [place] [address], [place] [address] Feb, [facility] [address] [id number] [address] [place] [address], [place] [address] Jan, [facility] [address] [id number] [address] [place] [address], [place] [address] Jan, [facility] [address] [id number] [address] [place] [address], [place] [address] Jan, [facility] [address] [id number] [address] [place] [address], [place] [address] Jan, [facility] [address] [id number] [address] [place] [address], [place] [address] Jan, [facility] [address] [id number] [address] [place] [address], [place] [address] Jan, [facility] [address] [id number] [address] [place] [address], [place] [address] Jan, [facility] [address] [id number] [address] [place] [address], [place] [address] Jan, [facility] [address] [id number] [address] [place] [address], [place] [address] Jan, [facility] [address] [id number] [address] [place] [address], [place] [address] Jan, [facility] [address] [id number] [address] [place] [address], [place] [address] December, [facility] [address] [id number] [facility] [place] [address] December, [facility] [address] [id number] [facility] [place] [address] December, [facility] [address] [id number] [facility] [place] [address] December, [facility] [address] [id number] [facility] [place] [address] December, [facility] [address] [id number] [facility] [place] [address] Nov, [facility] [address] [id number] [address] [place] [address], [place] [address] Nov, [facility] [address] [id number] [address] [place] [address], [place] [address] Nov, [facility] [address] [id number] [address] [place] [address], [place] [address] Oct, [facility] [address] [id number] [address] [place] [address], [place] [address] Oct, [facility] [address] [id number] [address] [place] [address], [place] [address] Oct, [facility] [address] [id number] [address] [place] [address], [place] [address] Oct, [facility] [address] [id number] [address] [place] [address], [place] [address] Oct, [facility] [address] [id number] [address] [place] [address], [place] [address] Oct, [facility] [address] [id number] [address] [place] [address], [place] [address] Oct, [facility] [address] [id number] [address] [place] [address], [place] [address] Oct, [facility] [address] [id number] [address] [place] [address] [address] Oct, [facility] [address] [id number] [address] [place] [address], [place] [address] Sep, [facility] [address] [id number] [address] [place] [address], [place] [address] Sep, [facility] [address] [id number] [address] [place] [address], [place] [address] Aug, [facility] [address] [id number] [address] [place] [address], [place] [address] Aug, [facility] [address] [id number] [address] [place] [address], [place] [address] Aug, [facility] [address] [id number] [address] [place] [address], [place] [address] Aug, [facility] [address] [id number] [address] [place] [address], [place] [address] Jul, [facility] [address] [id number] [address] [place] [address], [place] [address] Jul, [facility] [address] [id number] [address] [place] [address], [place] [address] Jul, [facility] [address] [id number] [address] [place] [address], [place] [address] Jul, [facility] [address] [id number] [address] [place] [address], [place] [address] Jun, [facility] [address] [id number] [address] [place] [address] Jun, [facility] [address] [id number] [address] [place] [address], [place] [address] Jun, [facility] [address] [id number] [address] [place] [address], [place] [address] Jun, [facility] [address] [id number] [address] [place] [address], [place] [address] May, [facility] [address] [id number] [address] [place] [address], [place] [address] May, [facility] [address] [id number] [address] [place] [address], [place] [address] May, [facility] [address] [id number] [address] [place] [address], [place] [address] May, [facility] [address] [id number] [address] [place] [address], [place] [address] May, [facility] [address] [id number] [address] [place] [address], [place] [address] May, [facility] [address] [id number] [address] [place] [address], [place] [address] Apr, [facility] [address] [id number] [address] [place] [address], [place] [address] Mar, [facility] [address] [id number] [address] [place] [address], [place] [address] Mar, [facility] [address] [id number] [address] [place] [address], [place] [address] Mar, [facility] [address] [id number] [address] [place] [address], [place] [address] Feb, [facility] [address] [id number] [address] [place] [address], [place] [address] Feb, [facility] [address] [id number] [address] [place] [address], [place] [address] Feb, [facility] [address] [id number] [address] [place] [address], [place] [address] Jan, [facility] [address] [id number] [address] [place] [address], [place] [address] Jan, [facility] [address] [id number] [address] [place] [address], [place] [address] December, [facility] [address] [id number] [address] [place] [address], [place] [address] December, [facility] [address] [id number] [address] [place] [address], [place] [address] December, [facility] [address] [id number] [address] [place] [address], [place] [address] 29 Nov, 2012 [facility] [address] [id number] [address] [place] [address], [place] [address] 24 Nov, 2012 [facility] [address] [id number] [address] [place] [address], [place] [address] Nov, [facility] [address] [id number] [address] [place] [address], [place] [address] 2012 [facility] [address] [id number] [address] [place] [address], [place] [address] 15 Nov, 2012 [facility] [address] [id number] [address] [place] [address], [place] [address] Nov, [facility] [address] [id number] [address] [place] [address], [place] [id number] Oct, [facility] [address] [id number] [address] [place] [address], [place] [address] Oct, [facility] [address] [id number] [address] [place] [address], [place] [address] Oct, [facility] [address] [id number] [address] [place] [address], [place] [address] Oct, [facility] [address] [id number] [address] [place] [address], [place] [address] 28 Sep, 2012 [facility] [address] [id number] [address] [place] [address], [place] [id number] Sep, [facility] [address] [id number] [address] [place] [address], [place] [id number] 18 Sep, 2012 [facility] [address] [id number] [address] [place] [address], [place] [address] Sep, [facility] [address] [id number] [address] [place] [phone] Sep, [facility] [address] [id number] [address] [place] [phone] Aug, [facility] [address] [id number] [address] [place] [id number] Aug, [facility] [address] [id number] [address] [place] [id number] Aug, [facility] [address] [id number] [address] [place] [id number] Aug, [facility] [address] [id number] [address] [place] [id number] Aug, [facility] [address] [id number] [address] [place] [phone] Aug, [facility] [address] [id number] [address] [place] [phone] May, [facility] [address] [id number] [address] [place] [id number] May, IMMUNIZATIONS No Known Immunizations SOCIAL HISTORY Never Assessed REASON FOR VISIT PLAN OF CARE VITAL SIGNS Height 69 in 2014-05-21 Weight 176.4 lbs 2014-05-21 Temperature 96.9 degrees Fahrenheit 2014-05-21 Heart Rate 88 bpm 2014-05-21 Respiratory Rate 16 2014-05-21 Blood pressure systolic 138 mmHg 2014-05-21 Blood pressure diastolic 76 mmHg 2014-05-21 MEDICATIONS Unknown Medications RESULTS No Results PROCEDURES Procedure Date Ordered Result Body Site GLYCATED HEMOGLOBIN TEST May 21, 2014 INSTRUCTIONS MEDICATIONS ADMINISTERED No Known Medications MEDICAL (GENERAL) HISTORY Type Description Date Medical History type I diabetes Medical History hx of MRSA infections Medical History depression Medical History anxiety Surgical History I & D-MRSA Hospitalization History MRSA 2003
--- OUTSIDE RECORDS SUMMARY | 2020-01-16 00:23 | XMS REPORT ---
Author Author Darien VILLALOBOS Organization [facility] Address [address] [place] [address] Care Team Providers Care Product Marketing Analyst Name Role Phone CHRISTOPHER VILLALOBOS Unavailable PROBLEMS Type Condition ICD9-CM Code WNW29-II Code Onset Dates Condition S tatus SNOMED Code Problem Diabetes type 1, controlled E10.9 Ac tive 91468662 Problem Type 2 diabetes mellitus with hyperglycemia E11.65 Active 988749197908164 Problem Other chronic pain G89.29 Active 8 8903599 Problem Schizoaffective disorder, depressive type F25.1 Active 50551149 Problem Type 1 diabetes mellitus with hyperglycemia E10.65 Active [id number] Problem Type 1 diabetes mellitus with diabetic polyneuropathy E10.42 Active 48091928 Problem Mood disorder F39 Active 521784 05 Problem Uncontrolled type 1 diabetes mellitus without complication E10.9 Active [id number] ALLERGIES No Information ENCOUNTERS Encounter Location Date Diagnosis [place] [address] [place] [id number] [address] [place] [address] December, [place] [address] [place] [id number] [address] [place] [address] Nov, [place] [address] [place] [id number] [address] [place] [address] 14 Nov, 2016 Uncontrolled type 1 diabetes mellitus without complication E10.9 [facility] [address] [facility] [id number] [address] [place] [address] 13 Nov, 2016 Impingement syndrome, should er, right M75.41 and Adhesive capsulitis of right shoulder M75.01 [facility] [address] [facility] [id number] [address] [place] [address] 03 Nov, 2016 Uncontrolled type 1 diabetes mellitus without complication E10.9 [facility] [address] [place] [id number] [address] [place] [address] Oct, Uncontrolled type 1 diabetes mellitus without complication E10.9 ; Other chronic pain G89.29 ; Pain in right shoulder M25.511 and Schizoaffective disorder, depressive type F25.1 [facility] [address] [id number] [address] [place] [address] May, Mood disorder F39 and Contro lled diabetes mellitus type 1 without complications E10.9 [facility] [address] [id number] [address] [place] [address] May, [facility] [address] [id number] [address] [place] [address] May, [facility] [address] [id number] [address] [place] [address] Apr, Mood disorder F39 ; 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 and Type 1 diabetes mellitus with hyperglycemia E10.65 [facility] [address] [id number] [address] [place] [address] Apr, Mood disorder F39 [facility] [address] [id number] [address] [place] [address] Mar, [facility] [address] [id number] [address] [place] [address] Feb, [facility] [address] [id number] [address] [place] [address] Jan, [facility] [address] [id number] [address] [place] [address] Jan, [facility] [address] [id number] [address] [place] [address] Jan, [facility] [address] [id number] [address] [place] [address] December, [facility] [address] [id number] [address] [place] [address] December, 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 and Controlled type 1 diabetes mellitus with diabetic neuropathy, with long-term current use of insulin E10.40 [facility] [address] [facility] [id number] [address] [place] [address] December, Schizo-affective schizophren ia F25.0 [facility] [address] [facility] [id number] [address] [place] [address] Nov, [facility] [address] [facility] [id number] [address] [place] [address] Nov, Anxiety disorder, unspecifie d F41.9 and Schizo-affective schizophrenia F25.0 [facility] [address] [facility] [id number] [address] [place] [address] Nov, Schizo-affective schizophren ia F25.0 [facility] [address] [facility] [id number] [address] [place] [address] Oct, [facility] [address] [facility] [id number] [address] [place] [address] Sep, [facility] [address] [facility] [id number] [address] [place] [address] Sep, [facility] [address] [facility] [id number] [address] [place] [address] Sep, [facility] [address] [facility] [id number] [address] [place] [address] Aug, [facility] [address] [facility] [id number] [address] [place] [address] Aug, [facility] [address] [facility] [id number] [address] [place] [address] Jul, [facility] [address] [place] [id number] [address] [place] [address] Jul, Diabetes type 1, controlled E10.9 [facility] [address] [facility] [id number] [address] [place] [address] Jun, Diabetes mellitus without me ntion of complication, type II or unspecified type, uncontrolled 250.02 [facility] [address] [address] Jun, Diabetes type 1, controlled E10.9 [place] [address] [address] May, Diabetes mellitus without me ntion of complication, type II or unspecified type, uncontrolled 250.02 [place] [address] [address] May, Anxiety 300.00 [place] [address] [address] May, Diabetes type 1, controlled E10.9 ; Schizo-affective schizophrenia F25.0 ; Mood disorder F39 and Bipolar 1 disorder F31.9 [place] [address] [address] May, [place] [address] [address] May, Anxiety F41.9 and Depression F32.9 [place] [address] [address] Apr, Diabetes mellitus without me ntion of complication, type II or unspecified type, uncontrolled 250.02 [place] [address] [address] Apr, Anxiety 300.00 and Diabetes mellitus without mention of complication, type II or unspecified type, uncontrolled 250.02 [facility] [address] [address] Apr, [place] [address] [address] Apr, Anxiety 300.00 and Depressio n 311 [place] [address] [address] Apr, Major depression, recurrent 296.30 ; Anxiety, generalized 300.02 and No condition on [place] II V71.09 [facility] [address] [id number] [address] [place] [address] Apr, [facility] [address] [id number] [address] [place] [address] Mar, Diabetes mellitus without me ntion of complication, type II or unspecified type, uncontrolled 250.02 and Anxiety 300.00 [facility] [address] [id number] [address] [place] [address] Mar, [facility] [address] [id number] [address] [place] [address] Feb, [facility] [address] [id number] [address] [place] [address] Feb, [facility] [address] [id number] [address] [place] [address] Feb, [facility] [address] [id number] [address] [place] [address] Jan, [facility] [address] [id number] [address] [place] [address] Jan, [facility] [address] [id number] [address] [place] [address] Jan, [facility] [address] [facility] [id number] [address] [place] [address] Jan, [facility] [address] [id number] [address] [place] [address] December, [facility] [address] [id number] [address] [place] [id number] December, Dental examination V72.2 [facility] [address] [id number] [address] [place] [address] December, Tooth pain 525.9 [facility] [address] [id number] [address] [place] [address] December, [facility] [address] [id number] [address] [place] [address], [place] [address] 14 Nov, 2014 [facility] [address] [id number] [address] [place] [address], [place] [address] 13 Nov, 2014 [facility] [address] [id number] [address] [place] [address], [place] [address] Oct, [facility] [address] [id number] [address] [place] [address], [place] [address] Oct, [facility] [address] [id number] [address] [place] [address], [place] [address] Sep, [facility] [address] [id number] [address] [place] [address], [place] [address] Sep, [facility] [address] [id number] [address] [place] [address], [place] [address] Sep, [facility] [address] [id number] [address] [place] [address], [place] [address] Sep, [facility] [address] [id number] [address] [place] [address], [place] [address] Aug, [facility] [address] [id number] [address] [place] [address], [place] [address] Aug, [facility] [address] [id number] [address] [place] [address], [place] [address] Aug, [facility] [address] [id number] [address] [place] [address], [place] [address] Aug, [facility] [address] [id number] [address] [place] [address], [place] [address] Jul, [facility] [address] [id number] [address] [place] [address], [place] [address] Jul, [facility] [address] [id number] [address] [place] [address], [place] [address] Jun, [facility] [address] [id number] [address] [place] [address], [place] [address] Jun, [facility] [address] [id number] [address] [place] [address], [place] [address] May, [facility] [address] [id number] [address] [place] [address], [place] [address] May, [facility] [address] [id number] [address] [place] [address], [place] [address] May, [facility] [address] [id number] [address] [place] [address], [place] [address] May, [facility] [address] [id number] [address] [place] [address], [place] [address] May, [facility] [address] [id number] [address] [place] [address], [place] [address] May, [facility] [address] [id number] [address] [place] [address], [place] [address] Apr, [facility] [address] [id number] [address] [place] [address], [place] [address] Apr, [facility] [address] [id number] [address] [place] [address], [place] [address] 17 Apr, 2014 [facility] [address] [id number] [address] [place] [address], [place] [id number] 17 Apr, 2014 [facility] [address] [id number] [address] [place] [address], [place] [address] 08 Apr, 2014 [facility] [address] [id number] [address] [place] [address], [place] [id number] 08 Apr, 2014 [facility] [address] [id number] [address] [place] [address], [place] [address] Mar, [facility] [address] [id number] [address] [place] [address], [place] [address] Mar, [facility] [address] [id number] [address] [place] [address], [place] [address] Mar, [facility] [address] [id number] [address] [place] [address] Mar, [facility] [address] [id number] [facility] [place] [address] Feb, [facility] [address] [id number] [address] [place] [address], [place] [address] Feb, [facility] [address] [id number] [address] [place] [address], [place] [address] Feb, [facility] [address] [id number] [address] [place] [address], [place] [address] Feb, [facility] [address] [id number] [address] [place] [address], [place] [address] Jan, [facility] [address] [id number] [address] [place] [address], [place] [address] Jan, [facility] [address] [id number] [address] [place] [address], [place] [address] Jan, [facility] [address] [id number] [address] [place] [address], [place] [address] Jan, [facility] [address] [id number] [address] [place] [address], [place] [address] Jan, [facility] [address] [id number] [address] [place] [address], [place] [address] Jan, [facility] [address] [id number] [address] [place] [address], [place] [address] Jan, [facility] [address] [id number] [address] [place] [address], [place] [address] Jan, [facility] [address] [id number] [address] [place] [address], [place] [address] Jan, [facility] [address] [id number] [address] [place] [address], [place] [address] Jan, [facility] [address] [id number] [address] [place] [address], [place] [address] December, [facility] [address] [id number] [facility] [place] [address] December, [facility] [address] [id number] [facility] [place] [address] December, [facility] [address] [id number] [facility] [place] [address] December, [facility] [address] [id number] [facility] [place] [address] December, [facility] [address] [id number] [facility] [place] [address] Nov, [facility] [address] [id number] [address] [place] [address], [place] [address] Nov, [facility] [address] [id number] [address] [place] [address], [place] [address] Nov, [facility] [address] [id number] [address] [place] [address], [place] [address] Oct, [facility] [address] [id number] [address] [place] [address], [place] [address] Oct, [facility] [address] [id number] [address] [place] [address], [place] [address] Oct, [facility] [address] [id number] [address] [place] [address], [place] [address] Oct, [facility] [address] [id number] [address] [place] [address], [place] [address] Oct, [facility] [address] [id number] [address] [place] [address], [place] [address] Oct, [facility] [address] [id number] [address] [place] [address], [place] [address] Oct, [facility] [address] [id number] [address] [place] [address], [place] [address] Oct, [facility] [address] [id number] [address] [place] [address] [address] Oct, [facility] [address] [id number] [address] [place] [address], [place] [address] Sep, [facility] [address] [id number] [address] [place] [address], [place] [address] Sep, [facility] [address] [id number] [address] [place] [address], [place] [address] Aug, [facility] [address] [id number] [address] [place] [address], [place] [address] Aug, [facility] [address] [id number] [address] [place] [address], [place] [address] Aug, [facility] [address] [id number] [address] [place] [address], [place] [address] Aug, [facility] [address] [id number] [address] [place] [address], [place] [address] Jul, [facility] [address] [id number] [address] [place] [address], [place] [address] Jul, [facility] [address] [id number] [address] [place] [address], [place] [address] Jul, [facility] [address] [id number] [address] [place] [address], [place] [address] Jul, [facility] [address] [id number] [address] [place] [address], [place] [address] Jun, [facility] [address] [id number] [address] [place] [address] Jun, [facility] [address] [id number] [address] [place] [address], [place] [address] Jun, [facility] [address] [id number] [address] [place] [address], [place] [address] Jun, [facility] [address] [id number] [address] [place] [address], [place] [address] May, [facility] [address] [id number] [address] [place] [address], [place] [address] May, [facility] [address] [id number] [address] [place] [address], [place] [address] May, [facility] [address] [id number] [address] [place] [address], [place] [address] May, [facility] [address] [id number] [address] [place] [address], [place] [address] May, [facility] [address] [id number] [address] [place] [address], [place] [address] May, [facility] [address] [id number] [address] [place] [address], [place] [address] Apr, [facility] [address] [id number] [address] [place] [address], [place] [address] Mar, [facility] [address] [id number] [address] [place] [address], [place] [address] Mar, [facility] [address] [id number] [address] [place] [address], [place] [address] Mar, [facility] [address] [id number] [address] [place] [address], [place] [address] Feb, [facility] [address] [id number] [address] [place] [address], [place] [address] Feb, [facility] [address] [id number] [address] [place] [address], [place] [address] Feb, [facility] [address] [id number] [address] [place] [address], [place] [address] Jan, [facility] [address] [id number] [address] [place] [address], [place] [address] Jan, [facility] [address] [id number] [address] [place] [address], [place] [address] December, [facility] [address] [id number] [address] [place] [address], [place] [address] December, [facility] [address] [id number] [address] [place] [address], [place] [address] December, [facility] [address] [id number] [address] [place] [address], [place] [address] 29 Nov, [address] [facility] [address] [id number] [address] [place] [address], [place] [id number] 24 Nov, 2012 [facility] [address] [id number] [address] [place] [address], [place] [address] Nov, [facility] [address] [id number] [address] [place] [address], [place] [address] 2012 [facility] [address] [id number] [address] [place] [address], [place] [address] 15 Nov, 2012 [facility] [address] [id number] [address] [place] [address], [place] [address] Nov, [facility] [address] [id number] [address] [place] [address], [place] [address] Oct, [facility] [address] [id number] [address] [place] [address], [place] [id number] Oct, [facility] [address] [id number] [address] [place] [address], [place] [id number] Oct, [facility] [address] [id number] [address] [place] [address], [place] [id number] Oct, [facility] [address] [id number] [address] [place] [address], [place] [id number] 28 Sep, 2012 [facility] [address] [id number] [address] [place] [address], [place] [id number] Sep, [facility] [address] [id number] [address] [place] [address], [place] [id number] 18 Sep, 2012 [facility] [address] [id number] [address] [place] [address], [place] [id number] Sep, [facility] [address] [id number] [address] [place] [id number] Sep, [facility] [address] [id number] [address] [place] [id number] Aug, [facility] [address] [id number] [address] [place] [id number] Aug, [facility] [address] [id number] [address] [place] [id number] Aug, [facility] [address] [id number] [address] [place] [id number] Aug, [facility] [address] [id number] [address] [place] [id number] Aug, [facility] [address] [id number] [address] [place] [id number] Aug, [facility] [address] [id number] [address] [place] [id number] May, [facility] [address] [id number] [address] [place] [phone] May, IMMUNIZATIONS No Known Immunizations SOCIAL HISTORY [...]
--- OUTSIDE RECORDS SUMMARY | 2020-01-16 00:23 | XMS REPORT ---
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 Spray Gun Name Role Phone CHRISTOPHER VILLALOBOS Unavailable PROBLEMS Type Condition ICD9-CM Code DTO09-HH Code Onset Dates Condition S tatus SNOMED Code Problem Diabetes type 1, controlled E10.9 Ac tive 03210638 Problem Type 2 diabetes mellitus with hyperglycemia E11.65 Active 635532915517243 Problem Other chronic pain G89.29 Active 8 5951136 Problem Schizoaffective disorder, depressive type F25.1 Active 88838016 Problem Type 1 diabetes mellitus with hyperglycemia E10.65 Active [id number] Problem Type 1 diabetes mellitus with diabetic polyneuropathy E10.42 Active 96047180 Problem Mood disorder F39 Active 649575 05 Problem Uncontrolled type 1 diabetes mellitus without complication E10.9 Active [id number] ALLERGIES No Information ENCOUNTERS Encounter Location Date Diagnosis [place] [address] [place] [id number] [address] [place] [address] December, [place] [address] [place] [id number] [address] [place] [address] Nov, [place] [address] [place] [id number] [address] [place] [address] 14 Nov, 2016 Uncontrolled type 1 diabetes mellitus without complication E10.9 [facility] [address] [facility] [id number] [address] [place] [address] 13 Nov, 2016 Impingement syndrome, should er, right M75.41 and Adhesive capsulitis of right shoulder M75.01 [facility] [address] [facility] [id number] [address] [place] [address] 03 Nov, 2016 Uncontrolled type 1 diabetes mellitus without complication E10.9 [facility] [address] [place] [id number] [address] [place] [address] Oct, Uncontrolled type 1 diabetes mellitus without complication E10.9 ; Other chronic pain G89.29 ; Pain in right shoulder M25.511 and Schizoaffective disorder, depressive type F25.1 [facility] [address] [id number] [address] [place] [address] May, Mood disorder F39 and Contro lled diabetes mellitus type 1 without complications E10.9 [facility] [address] [id number] [address] [place] [address] May, [facility] [address] [id number] [address] [place] [address] May, [facility] [address] [id number] [address] [place] [address] Apr, Mood disorder F39 ; 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 and Type 1 diabetes mellitus with hyperglycemia E10.65 [facility] [address] [id number] [address] [place] [address] Apr, Mood disorder F39 [facility] [address] [id number] [address] [place] [address] Mar, [facility] [address] [id number] [address] [place] [address] Feb, [facility] [address] [id number] [address] [place] [address] Jan, [facility] [address] [id number] [address] [place] [address] Jan, [facility] [address] [id number] [address] [place] [address] Jan, [facility] [address] [id number] [address] [place] [address] December, [facility] [address] [id number] [address] [place] [address] December, 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 and Controlled type 1 diabetes mellitus with diabetic neuropathy, with long-term current use of insulin E10.40 [facility] [address] [facility] [id number] [address] [place] [address] December, Schizo-affective schizophren ia F25.0 [facility] [address] [facility] [id number] [address] [place] [address] Nov, [facility] [address] [facility] [id number] [address] [place] [address] Nov, Anxiety disorder, unspecifie d F41.9 and Schizo-affective schizophrenia F25.0 [facility] [address] [facility] [id number] [address] [place] [address] Nov, Schizo-affective schizophren ia F25.0 [facility] [address] [facility] [id number] [address] [place] [address] Oct, [facility] [address] [facility] [id number] [address] [place] [address] Sep, [facility] [address] [facility] [id number] [address] [place] [address] Sep, [facility] [address] [facility] [id number] [address] [place] [address] Sep, [facility] [address] [facility] [id number] [address] [place] [address] Aug, [facility] [address] [facility] [id number] [address] [place] [address] Aug, [facility] [address] [facility] [id number] [address] [place] [address] Jul, [facility] [address] [place] [id number] [address] [place] [address] Jul, Diabetes type 1, controlled E10.9 [facility] [address] [facility] [id number] [address] [place] [address] Jun, Diabetes mellitus without me ntion of complication, type II or unspecified type, uncontrolled 250.02 [facility] [address] [address] Jun, Diabetes type 1, controlled E10.9 [place] [address] [address] May, Diabetes mellitus without me ntion of complication, type II or unspecified type, uncontrolled 250.02 [place] [address] [address] May, Anxiety 300.00 [place] [address] [address] May, Diabetes type 1, controlled E10.9 ; Schizo-affective schizophrenia F25.0 ; Mood disorder F39 and Bipolar 1 disorder F31.9 [place] [address] [address] May, [place] [address] [address] May, Anxiety F41.9 and Depression F32.9 [place] [address] [address] Apr, Diabetes mellitus without me ntion of complication, type II or unspecified type, uncontrolled 250.02 [place] [address] [address] Apr, Anxiety 300.00 and Diabetes mellitus without mention of complication, type II or unspecified type, uncontrolled 250.02 [facility] [address] [address] Apr, [place] [address] [address] Apr, Anxiety 300.00 and Depressio n 311 [place] [address] [address] Apr, Major depression, recurrent 296.30 ; Anxiety, generalized 300.02 and No condition on [place] V71.09 [facility] [address] [id number] [address] [place] [address] Apr, [facility] [address] [id number] [address] [place] [address] Mar, Diabetes mellitus without me ntion of complication, type II or unspecified type, uncontrolled 250.02 and Anxiety 300.00 [facility] [address] [id number] [address] [place] [address] Mar, [facility] [address] [id number] [address] [place] [address] Feb, [facility] [address] [id number] [address] [place] [address] Feb, [facility] [address] [id number] [address] [place] [address] Feb, [facility] [address] [id number] [address] [place] [address] Jan, [facility] [address] [id number] [address] [place] [address] Jan, [facility] [address] [id number] [address] [place] [address] Jan, [facility] [address] [facility] [id number] [address] [place] [address] Jan, [facility] [address] [id number] [address] [place] [address] December, [facility] [address] [id number] [address] [place] [id number] December, Dental examination V72.2 [facility] [address] [id number] [address] [place] [address] December, Tooth pain 525.9 [facility] [address] [id number] [address] [place] [address] December, [facility] [address] [id number] [address] [place] [address], [place] [address] 14 Nov, 2014 [facility] [address] [id number] [address] [place] [address], [place] [address] 13 Nov, 2014 [facility] [address] [id number] [address] [place] [address], [place] [address] Oct, [facility] [address] [id number] [address] [place] [address], [place] [address] Oct, [facility] [address] [id number] [address] [place] [address], [place] [address] Sep, [facility] [address] [id number] [address] [place] [address], [place] [address] Sep, [facility] [address] [id number] [address] [place] [address], [place] [address] Sep, [facility] [address] [id number] [address] [place] [address], [place] [address] Sep, [facility] [address] [id number] [address] [place] [address], [place] [address] Aug, [facility] [address] [id number] [address] [place] [address], [place] [address] Aug, [facility] [address] [id number] [address] [place] [address], [place] [address] Aug, [facility] [address] [id number] [address] [place] [address], [place] [address] Aug, [facility] [address] [id number] [address] [place] [address], [place] [address] Jul, [facility] [address] [id number] [address] [place] [address], [place] [address] Jul, [facility] [address] [id number] [address] [place] [address], [place] [address] Jun, [facility] [address] [id number] [address] [place] [address], [place] [address] Jun, [facility] [address] [id number] [address] [place] [address], [place] [address] May, [facility] [address] [id number] [address] [place] [address], [place] [address] May, [facility] [address] [id number] [address] [place] [address], [place] [address] May, [facility] [address] [id number] [address] [place] [address], [place] [address] May, [facility] [address] [id number] [address] [place] [address], [place] [address] May, [facility] [address] [id number] [address] [place] [address], [place] [address] May, [facility] [address] [id number] [address] [place] [address], [place] [address] Apr, [facility] [address] [id number] [address] [place] [address], [place] [address] Apr, [facility] [address] [id number] [address] [place] [address], [place] [address] 17 Apr, 2014 [facility] [address] [id number] [address] [place] [address], [place] [address] 17 Apr, 2014 [facility] [address] [id number] [address] [place] [address], [place] [address] 08 Apr, 2014 [facility] [address] [id number] [address] [place] [address], [place] [address] 08 Apr, 2014 [facility] [address] [id number] [address] [place] [address], [place] [address] Mar, [facility] [address] [id number] [address] [place] [address], [place] [address] Mar, [facility] [address] [id number] [address] [place] [address], [place] [address] Mar, [facility] [address] [id number] [address] [place] [address] Mar, [facility] [address] [id number] [facility] [place] [address] Feb, [facility] [address] [id number] [address] [place] [address], [place] [address] Feb, [facility] [address] [id number] [address] [place] [address], [place] [address] Feb, [facility] [address] [id number] [address] [place] [address], [place] [address] Feb, [facility] [address] [id number] [address] [place] [address], [place] [address] Jan, [facility] [address] [id number] [address] [place] [address], [place] [address] Jan, [facility] [address] [id number] [address] [place] [address], [place] [address] Jan, [facility] [address] [id number] [address] [place] [address], [place] [address] Jan, [facility] [address] [id number] [address] [place] [address], [place] [address] Jan, [facility] [address] [id number] [address] [place] [address], [place] [address] Jan, [facility] [address] [id number] [address] [place] [address], [place] [address] Jan, [facility] [address] [id number] [address] [place] [address], [place] [address] Jan, [facility] [address] [id number] [address] [place] [address], [place] [address] Jan, [facility] [address] [id number] [address] [place] [address], [place] [address] Jan, [facility] [address] [id number] [address] [place] [address], [place] [address] December, [facility] [address] [id number] [facility] [place] [address] December, [facility] [address] [id number] [facility] [place] [address] December, [facility] [address] [id number] [facility] [place] [address] December, [facility] [address] [id number] [facility] [place] [address] December, [facility] [address] [id number] [facility] [place] [address] Nov, [facility] [address] [id number] [address] [place] [address], [place] [address] Nov, [facility] [address] [id number] [address] [place] [address], [place] [address] Nov, [facility] [address] [id number] [address] [place] [address], [place] [address] Oct, [facility] [address] [id number] [address] [place] [address], [place] [address] Oct, [facility] [address] [id number] [address] [place] [address], [place] [address] Oct, [facility] [address] [id number] [address] [place] [address], [place] [address] Oct, [facility] [address] [id number] [address] [place] [address], [place] [address] Oct, [facility] [address] [id number] [address] [place] [address], [place] [address] Oct, [facility] [address] [id number] [address] [place] [address], [place] [address] Oct, [facility] [address] [id number] [address] [place] [address], [place] [address] Oct, [facility] [address] [id number] [address] [place] [address] [address] Oct, [facility] [address] [id number] [address] [place] [address], [place] [address] Sep, [facility] [address] [id number] [address] [place] [address], [place] [address] Sep, [facility] [address] [id number] [address] [place] [address], [place] [address] Aug, [facility] [address] [id number] [address] [place] [address], [place] [address] Aug, [facility] [address] [id number] [address] [place] [address], [place] [address] Aug, [facility] [address] [id number] [address] [place] [address], [place] [address] Aug, [facility] [address] [id number] [address] [place] [address], [place] [address] Jul, [facility] [address] [id number] [address] [place] [address], [place] [address] Jul, [facility] [address] [id number] [address] [place] [address], [place] [address] Jul, [facility] [address] [id number] [address] [place] [address], [place] [address] Jul, [facility] [address] [id number] [address] [place] [address], [place] [address] Jun, [facility] [address] [id number] [address] [place] [address] Jun, [facility] [address] [id number] [address] [place] [address], [place] [address] Jun, [facility] [address] [id number] [address] [place] [address], [place] [address] Jun, [facility] [address] [id number] [address] [place] [address], [place] [address] May, [facility] [address] [id number] [address] [place] [address], [place] [address] May, [facility] [address] [id number] [address] [place] [address], [place] [address] May, [facility] [address] [id number] [address] [place] [address], [place] [address] May, [facility] [address] [id number] [address] [place] [address], [place] [address] May, [facility] [address] [id number] [address] [place] [address], [place] [address] May, [facility] [address] [id number] [address] [place] [address], [place] [address] Apr, [facility] [address] [id number] [address] [place] [address], [place] [address] Mar, [facility] [address] [id number] [address] [place] [address], [place] [address] Mar, [facility] [address] [id number] [address] [place] [address], [place] [address] Mar, [facility] [address] [id number] [address] [place] [address], [place] [address] Feb, [facility] [address] [id number] [address] [place] [address], [place] [address] Feb, [facility] [address] [id number] [address] [place] [address], [place] [address] Feb, [facility] [address] [id number] [address] [place] [address], [place] [address] Jan, [facility] [address] [id number] [address] [place] [address], [place] [address] Jan, [facility] [address] [id number] [address] [place] [address], [place] [address] December, [facility] [address] [id number] [address] [place] [address], [place] [address] December, [facility] [address] [id number] [address] [place] [address], [place] [address] December, [facility] [address] [id number] [address] [place] [address], [place] [address] 29 Nov, 2012 [facility] [address] [id number] [address] [place] [address], [place] [address] 24 Nov, 2012 [facility] [address] [id number] [address] [place] [address], [place] [address] Nov, [facility] [address] [id number] [address] [place] [address], [place] [address] 2012 [facility] [address] [id number] [address] [place] [address], [place] [address] 15 Nov, 2012 [facility] [address] [id number] [address] [place] [address], [place] [address] Nov, [facility] [address] [id number] [address] [place] [address], [place] [address] Oct, [facility] [address] [id number] [address] [place] [address], [place] [address] Oct, [facility] [address] [id number] [address] [place] [address], [place] [address] Oct, [facility] [address] [id number] [address] [place] [address], [place] [address] Oct, [facility] [address] [id number] [address] [place] [address], [place] [address] 28 Sep, 2012 [facility] [address] [id number] [address] [place] [address], [place] [address] Sep, [facility] [address] [id number] [address] [place] [address], [place] [address] 18 Sep, 2012 [facility] [address] [id number] [address] [place] [address], [place] [address] Sep, [facility] [address] [id number] [address] [place] [id number] Sep, [facility] [address] [id number] [address] [place] [phone] Aug, [facility] [address] [id number] [address] [place] [id number] Aug, [facility] [address] [id number] [address] [place] [id number] Aug, [facility] [address] [id number] [address] [place] [address] Aug, [facility] [address] [id number] [address] [place] [address] Aug, [facility] [address] [id number] [address] [place] [id number] Aug, [facility] [address] [id number] [address] [place] [phone] May, [facility] [address] [id number] [address] [place] [address] May, IMMUNIZATIONS No Known Immunizations SOCIAL HISTORY [...]
--- OUTSIDE RECORDS SUMMARY | 2020-01-16 00:23 | XMS REPORT ---
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 [employer] Name Role Phone CHRISTOPHER VILLALOBOS Unavailable PROBLEMS Type Condition ICD9-CM Code WLE38-CH Code Onset Dates Condition S tatus SNOMED Code Problem Diabetes type 1, controlled E10.9 Ac tive 35228004 Problem Type 2 diabetes mellitus with hyperglycemia E11.65 Active [id number] Problem Other chronic pain G89.29 Active 8 7451873 Problem Schizoaffective disorder, depressive type F25.1 Active 61399863 Problem Type 1 diabetes mellitus with hyperglycemia E10.65 Active [id number] Problem Type 1 diabetes mellitus with diabetic polyneuropathy E10.42 Active 82277159 Problem Mood disorder F39 Active 884880 05 Problem Uncontrolled type 1 diabetes mellitus without complication E10.9 Active [id number] ALLERGIES No Information ENCOUNTERS Encounter Location Date Diagnosis [place] [address] [place] [id number] [place] [id number] December, [place] [address] [place] [id number] [address] [place] [id number] Nov, [place] [address] [place] [id number] [address] [place] [id number] 14 Nov, 2016 Uncontrolled type 1 diabetes mellitus without complication E10.9 [facility] [address] [facility] [id number] [address] [place] [id number] 13 Nov, 2016 Impingement syndrome, should er, right M75.41 and Adhesive capsulitis of right shoulder M75.01 [facility] [address] [facility] [id number] [address] [place] [id number] 03 Nov, 2016 Uncontrolled type 1 diabetes mellitus without complication E10.9 [facility] [address] [place] [id number] [address] [place] [id number] Oct, Uncontrolled type 1 diabetes mellitus without complication E10.9 ; Other chronic pain G89.29 ; Pain in right shoulder M25.511 and Schizoaffective disorder, depressive type F25.1 [facility] [address] [id number] [address] [place] [id number] May, Mood disorder F39 and Contro lled diabetes mellitus type 1 without complications E10.9 [facility] [address] [id number] [address] [place] [id number] May, [facility] [address] [id number] [address] [place] [id number] May, [facility] [address] [id number] [address] [place] [id number] Apr, Mood disorder F39 ; 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 and Type 1 diabetes mellitus with hyperglycemia E10.65 [facility] [address] [id number] [address] [place] [id number] Apr, Mood disorder F39 [facility] [address] [id number] [address] [place] [id number] Mar, [facility] [address] [id number] [address] [place] [id number] Feb, [facility] [address] [id number] [address] [place] [id number] Jan, [facility] [address] [id number] [address] [place] [id number] Jan, [facility] [address] [id number] [address] [place] [id number] Jan, [facility] [address] [id number] [address] [place] [id number] December, [facility] [address] [id number] [address] [place] [id number] December, 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 and Controlled type 1 diabetes mellitus with diabetic neuropathy, with long-term current use of insulin E10.40 [facility] [address] [facility] [id number] [address] [place] [id number] December, Schizo-affective schizophren ia F25.0 [facility] [address] [facility] [id number] [address] [place] [id number] Nov, [facility] [address] [facility] [id number] [address] [place] [id number] Nov, Anxiety disorder, unspecifie d F41.9 and Schizo-affective schizophrenia F25.0 [facility] [address] [facility] [id number] [address] [place] [id number] Nov, Schizo-affective schizophren ia F25.0 [facility] [address] [facility] [id number] [address] [place] [id number] Oct, [facility] [address] [facility] [id number] [address] [place] [id number] Sep, [facility] [address] [facility] [id number] [address] [place] [id number] Sep, [facility] [address] [facility] [id number] [address] [place] [id number] Sep, [facility] [address] [facility] [id number] [address] [place] [id number] Aug, [facility] [address] [facility] [id number] [address] [place] [id number] Aug, [facility] [address] [facility] [id number] [address] [place] [id number] Jul, [facility] [address] [place] [id number] [address] [place] [id number] Jul, Diabetes type 1, controlled E10.9 [facility] [address] [facility] [id number] [address] [place] [id number] Jun, Diabetes mellitus without me ntion of complication, type II or unspecified type, uncontrolled 250.02 [facility] [address] [address] Jun, Diabetes type 1, controlled E10.9 [place] [address] [address] May, Diabetes mellitus without me ntion of complication, type II or unspecified type, uncontrolled 250.02 [place] [address] [address] May, Anxiety 300.00 [place] [address] [address] May, Diabetes type 1, controlled E10.9 ; Schizo-affective schizophrenia F25.0 ; Mood disorder F39 and Bipolar 1 disorder F31.9 [place] [address] [address] May, [place] [address] [address] May, Anxiety F41.9 and Depression F32.9 [place] [address] [id number] Apr, Diabetes mellitus without me ntion of complication, type II or unspecified type, uncontrolled 250.02 [place] [address] [address] Apr, Anxiety 300.00 and Diabetes mellitus without mention of complication, type II or unspecified type, uncontrolled 250.02 [facility] [address] [id number] Apr, [place] [address] [address] Apr, Anxiety 300.00 and Depressio n 311 [place] [address] [id number] Apr, Major depression, recurrent 296.30 ; Anxiety, generalized 300.02 and No condition on Bruno II V71.09 [facility] [address] [id number] [address] [place] [id number] Apr, [facility] [address] [id number] [address] [place] [id number] Mar, Diabetes mellitus without me ntion of complication, type II or unspecified type, uncontrolled 250.02 and Anxiety 300.00 [facility] [address] [id number] [address] [place] [id number] Mar, [facility] [address] [id number] [address] [place] [id number] Feb, [facility] [address] [id number] [address] [place] [id number] Feb, [facility] [address] [id number] [address] [place] [id number] Feb, [facility] [address] [id number] [address] [place] [id number] Jan, [facility] [address] [id number] [address] [place] [id number] Jan, [facility] [address] [id number] [address] [place] [id number] Jan, [facility] [address] [facility] [id number] [address] [place] [id number] Jan, [facility] [address] [id number] [address] [place] [id number] December, [facility] [address] [id number] [address] [place] [id number] December, Dental examination V72.2 [facility] [address] [id number] [address] [place] [id number] December, Tooth pain 525.9 [facility] [address] [id number] [address] [place] [id number] December, [facility] [address] [id number] [address] [place] [address], [place] [address] 14 Nov, 2014 [facility] [address] [id number] [address] [place] [address], [place] [address] 13 Nov, 2014 [facility] [address] [id number] [address] [place] [address], [place] [address] Oct, [facility] [address] [id number] [address] [place] [address], [place] [address] Oct, [facility] [address] [id number] [address] [place] [address], [place] [address] Sep, [facility] [address] [id number] [address] [place] [address], [place] [address] Sep, [facility] [address] [id number] [address] [place] [address], [place] [address] Sep, [facility] [address] [id number] [address] [place] [address], [place] [address] Sep, [facility] [address] [id number] [address] [place] [address], [place] [address] Aug, [facility] [address] [id number] [address] [place] [address], [place] [address] Aug, [facility] [address] [id number] [address] [place] [address], [place] [address] Aug, [facility] [address] [id number] [address] [place] [address], [place] [address] Aug, [facility] [address] [id number] [address] [place] [address], [place] [address] Jul, [facility] [address] [id number] [address] [place] [address], [place] [address] Jul, [facility] [address] [id number] [address] [place] [address], [place] [address] Jun, [facility] [address] [id number] [address] [place] [address], [place] [address] Jun, [facility] [address] [id number] [address] [place] [address], [place] [address] May, [facility] [address] [id number] [address] [place] [address], [place] [address] May, [facility] [address] [id number] [address] [place] [address], [place] [address] May, [facility] [address] [id number] [address] [place] [address], [place] [address] May, [facility] [address] [id number] [address] [place] [address], [place] [address] May, [facility] [address] [id number] [address] [place] [address], [place] [address] May, [facility] [address] [id number] [address] [place] [address], [place] [address] Apr, [facility] [address] [id number] [address] [place] [address], [place] [address] Apr, [facility] [address] [id number] [address] [place] [address], [place] [address] 17 Apr, 2014 [facility] [address] [id number] [address] [place] [address], [place] [address] 17 Apr, 2014 [facility] [address] [id number] [address] [place] [address], [place] [address] 08 Apr, 2014 [facility] [address] [id number] [address] [place] [address], [place] [address] 08 Apr, 2014 [facility] [address] [id number] [address] [place] [address], [place] [address] Mar, [facility] [address] [id number] [address] [place] [address], [place] [address] Mar, [facility] [address] [id number] [address] [place] [address], [place] [address] Mar, [facility] [address] [id number] [address] [place] [id number] Mar, [facility] [address] [id number] [facility] [place] [address] Feb, [facility] [address] [id number] [address] [place] [address], [place] [address] Feb, [facility] [address] [id number] [address] [place] [address], [place] [address] Feb, [facility] [address] [id number] [address] [place] [address], [place] [address] Feb, [facility] [address] [id number] [address] [place] [address], [place] [address] Jan, [facility] [address] [id number] [address] [place] [address], [place] [address] Jan, [facility] [address] [id number] [address] [place] [address], [place] [address] Jan, [facility] [address] [id number] [address] [place] [address], [place] [address] Jan, [facility] [address] [id number] [address] [place] [address], [place] [address] Jan, [facility] [address] [id number] [address] [place] [address], [place] [address] Jan, [facility] [address] [id number] [address] [place] [address], [place] [address] Jan, [facility] [address] [id number] [address] [place] [address], [place] [address] Jan, [facility] [address] [id number] [address] [place] [address], [place] [address] Jan, [facility] [address] [id number] [address] [place] [address], [place] [address] Jan, [facility] [address] [id number] [address] [place] [address], [place] [address] December, [facility] [address] [id number] [facility] [place] [address] December, [facility] [address] [id number] [facility] [place] [address] December, [facility] [address] [id number] [facility] [place] [address] December, [facility] [address] [id number] [facility] [place] [address] December, [facility] [address] [id number] [facility] [place] [address] Nov, [facility] [address] [id number] [address] [place] [address], [place] [address] Nov, [facility] [address] [id number] [address] [place] [address], [place] [address] Nov, [facility] [address] [id number] [address] [place] [address], [place] [address] Oct, [facility] [address] [id number] [address] [place] [address], [place] [address] Oct, [facility] [address] [id number] [address] [place] [address], [place] [address] Oct, [facility] [address] [id number] [address] [place] [address], [place] [address] Oct, [facility] [address] [id number] [address] [place] [address], [place] [address] Oct, [facility] [address] [id number] [address] [place] [address], [place] [address] Oct, [facility] [address] [id number] [address] [place] [address], [place] [address] Oct, [facility] [address] [id number] [address] [place] [address], [place] [address] Oct, [facility] [address] [id number] [address] [place] [address] [address] Oct, [facility] [address] [id number] [address] [place] [address], [place] [address] Sep, [facility] [address] [id number] [address] [place] [address], [place] [address] Sep, [facility] [address] [id number] [address] [place] [address], [place] [address] Aug, [facility] [address] [id number] [address] [place] [address], [place] [address] Aug, [facility] [address] [id number] [address] [place] [address], [place] [address] Aug, [facility] [address] [id number] [address] [place] [address], [place] [address] Aug, [facility] [address] [id number] [address] [place] [address], [place] [address] Jul, [facility] [address] [id number] [address] [place] [address], [place] [address] Jul, [facility] [address] [id number] [address] [place] [address], [place] [address] Jul, [facility] [address] [id number] [address] [place] [address], [place] [address] Jul, [facility] [address] [id number] [address] [place] [address], [place] [address] Jun, [facility] [address] [id number] [address] [place] [id number] Jun, [facility] [address] [id number] [address] [place] [address], [place] [address] Jun, [facility] [address] [id number] [address] [place] [address], [place] [address] Jun, [facility] [address] [id number] [address] [place] [address], [place] [address] May, [facility] [address] [id number] [address] [place] [address], [place] [address] May, [facility] [address] [id number] [address] [place] [address], [place] [address] May, [facility] [address] [id number] [address] [place] [address], [place] [address] May, [facility] [address] [id number] [address] [place] [address], [place] [address] May, [facility] [address] [id number] [address] [place] [address], [place] [address] May, [facility] [address] [id number] [address] [place] [address], [place] [address] Apr, [facility] [address] [id number] [address] [place] [address], [place] [address] Mar, [facility] [address] [id number] [address] [place] [address], [place] [address] Mar, [facility] [address] [id number] [address] [place] [address], [place] [address] Mar, [facility] [address] [id number] [address] [place] [address], [place] [address] Feb, [facility] [address] [id number] [address] [place] [address], [place] [address] Feb, [facility] [address] [id number] [address] [place] [address], [place] [address] Feb, [facility] [address] [id number] [address] [place] [address], [place] [address] Jan, [facility] [address] [id number] [address] [place] [address], [place] [address] Jan, [facility] [address] [id number] [address] [place] [address], [place] [address] December, [facility] [address] [id number] [address] [place] [address], [place] [address] December, [facility] [address] [id number] [address] [place] [address], [place] [address] December, [facility] [address] [id number] [address] [place] [address], [place] [address] 29 Nov, 2012 [facility] [address] [id number] [address] [place] [address], [place] [address] 24 Nov, 2012 [facility] [address] [id number] [address] [place] [address], [place] [address] Nov, [facility] [address] [id number] [address] [place] [address], [place] [address] 2012 [facility] [address] [id number] [address] [place] [address], [place] [address] 15 Nov, 2012 [facility] [address] [id number] [address] [place] [address], [place] [address] Nov, [facility] [address] [id number] [address] [place] [address], [place] [address] Oct, [facility] [address] [id number] [address] [place] [address], [place] [address] Oct, [facility] [address] [id number] [address] [place] [address], [place] [address] Oct, [facility] [address] [id number] [address] [place] [address], [place] [address] Oct, [facility] [address] [id number] [address] [place] [address], [place] [address] 28 Sep, 2012 [facility] [address] [id number] [address] [place] [address], [place] [address] Sep, [facility] [address] [id number] [address] [place] [address], [place] [address] 18 Sep, 2012 [facility] [address] [id number] [address] [place] [address], [place] [address] Sep, [facility] [address] [id number] [address] [place] [id number] Sep, [facility] [address] [id number] [address] [place] [id number] Aug, [facility] [address] [id number] [address] [place] [id number] Aug, [facility] [address] [id number] [address] [place] [id number] Aug, [facility] [address] [id number] [address] [place] [id number] Aug, [facility] [address] [id number] [address] [place] [phone] Aug, [facility] [address] [id number] [address] [place] [phone] Aug, [facility] [address] [id number] [address] [place] [id number] May, [facility] [address] [id number] [address] [place] [id number] May, IMMUNIZATIONS No Known Immunizations SOCIAL HISTORY [...]
--- OUTSIDE RECORDS SUMMARY | 2020-01-16 00:23 | XMS REPORT ---
Author Author Darien VILLALOBOS Organization [facility] Address [address] [place] [address] Care Team Providers Care Sports Physical Therapist Name Role Phone CHRISTOPHER VILLALOBOS Unavailable PROBLEMS Type Condition ICD9-CM Code [id number] Code Onset Dates Condition S tatus SNOMED Code Problem Diabetes type 1, controlled E10.9 Ac tive 47487220 Problem Type 2 diabetes mellitus with hyperglycemia E11.65 Active 490850409771315 Problem Other chronic pain G89.29 Active 8 7002685 Problem Schizoaffective disorder, depressive type F25.1 Active 79374869 Problem Type 1 diabetes mellitus with hyperglycemia E10.65 Active [id number] Problem Type 1 diabetes mellitus with diabetic polyneuropathy E10.42 Active 54913659 Problem Mood disorder F39 Active 204468 05 Problem Uncontrolled type 1 diabetes mellitus without complication E10.9 Active [id number] ALLERGIES No Information ENCOUNTERS Encounter Location Date Diagnosis [place] [address] [place] [id number] [address] [place] [id number] December, [place] [address] [place] [id number] [address] [place] [address] Nov, [place] [address] [place] [id number] [address] [place] [id number] 14 Nov, 2016 Uncontrolled type 1 diabetes mellitus without complication E10.9 [facility] [address] [facility] [id number] [address] [place] [address] 13 Nov, 2016 Impingement syndrome, should er, right M75.41 and Adhesive capsulitis of right shoulder M75.01 [facility] [address] [facility] [id number] [address] [place] [address] 03 Nov, 2016 Uncontrolled type 1 diabetes mellitus without complication E10.9 [facility] [address] [place] [id number] [address] [place] [address] Oct, Uncontrolled type 1 diabetes mellitus without complication E10.9 ; Other chronic pain G89.29 ; Pain in right shoulder M25.511 and Schizoaffective disorder, depressive type F25.1 [facility] [address] [id number] [address] [place] [address] May, Mood disorder F39 and Contro lled diabetes mellitus type 1 without complications E10.9 [facility] [address] [id number] [address] [place] [address] May, [facility] [address] [id number] [address] [place] [address] May, [facility] [address] [id number] [address] [place] [address] Apr, Mood disorder F39 ; 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 and Type 1 diabetes mellitus with hyperglycemia E10.65 [facility] [address] [id number] [address] [place] [address] Apr, Mood disorder F39 [facility] [address] [id number] [address] [place] [address] Mar, [facility] [address] [id number] [address] [place] [address] Feb, [facility] [address] [id number] [address] [place] [address] Jan, [facility] [address] [id number] [address] [place] [address] Jan, [facility] [address] [id number] [address] [place] [address] Jan, [facility] [address] [id number] [address] [place] [address] December, [facility] [address] [id number] [address] [place] [address] December, 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 and Controlled type 1 diabetes mellitus with diabetic neuropathy, with long-term current use of insulin E10.40 [facility] [address] [facility] [id number] [address] [place] [address] December, Schizo-affective schizophren ia F25.0 [facility] [address] [facility] [id number] [address] [place] [address] Nov, [facility] [address] [facility] [id number] [address] [place] [address] Nov, Anxiety disorder, unspecifie d F41.9 and Schizo-affective schizophrenia F25.0 [facility] [address] [facility] [id number] [address] [place] [address] Nov, Schizo-affective schizophren ia F25.0 [facility] [address] [facility] [id number] [address] [place] [address] Oct, [facility] [address] [facility] [id number] [address] [place] [address] Sep, [facility] [address] [facility] [id number] [address] [place] [address] Sep, [facility] [address] [facility] [id number] [address] [place] [address] Sep, [facility] [address] [facility] [id number] [address] [place] [address] Aug, [facility] [address] [facility] [id number] [address] [place] [address] Aug, [facility] [address] [facility] [id number] [address] [place] [address] Jul, [facility] [address] [place] [id number] [address] [place] [address] Jul, Diabetes type 1, controlled E10.9 [facility] [address] [facility] [id number] [address] [place] [address] Jun, Diabetes mellitus without me ntion of complication, type II or unspecified type, uncontrolled 250.02 [facility] [address] [address] Jun, Diabetes type 1, controlled E10.9 [place] [address] [address] May, Diabetes mellitus without me ntion of complication, type II or unspecified type, uncontrolled 250.02 [place] [address] [address] May, Anxiety 300.00 [place] [address] [address] May, Diabetes type 1, controlled E10.9 ; Schizo-affective schizophrenia F25.0 ; Mood disorder F39 and Bipolar 1 disorder F31.9 [place] [address] [address] May, [place] [address] [address] May, Anxiety F41.9 and Depression F32.9 [place] [address] [address] Apr, Diabetes mellitus without me ntion of complication, type II or unspecified type, uncontrolled 250.02 [place] [address] [address] Apr, Anxiety 300.00 and Diabetes mellitus without mention of complication, type II or unspecified type, uncontrolled 250.02 [facility] [address] [address] Apr, [place] [address] [address] Apr, Anxiety 300.00 and Depressio n 311 [place] [address] [address] Apr, Major depression, recurrent 296.30 ; Anxiety, generalized 300.02 and No condition on [place] II V71.09 [facility] [address] [id number] [address] [place] [address] Apr, [facility] [address] [id number] [address] [place] [address] Mar, Diabetes mellitus without me ntion of complication, type II or unspecified type, uncontrolled 250.02 and Anxiety 300.00 [facility] [address] [id number] [address] [place] [address] Mar, [facility] [address] [id number] [address] [place] [address] Feb, [facility] [address] [id number] [address] [place] [address] Feb, [facility] [address] [id number] [address] [place] [address] Feb, [facility] [address] [id number] [address] [place] [address] Jan, [facility] [address] [id number] [address] [place] [address] Jan, [facility] [address] [id number] [address] [place] [address] Jan, [facility] [address] [facility] [id number] [address] [place] [address] Jan, [facility] [address] [id number] [address] [place] [address] December, [facility] [address] [id number] [address] [place] [id number] December, Dental examination V72.2 [facility] [address] [id number] [address] [place] [address] December, Tooth pain 525.9 [facility] [address] [id number] [address] [place] [address] December, [facility] [address] [id number] [address] [place] [address], [place] [address] 14 Nov, 2014 [facility] [address] [id number] [address] [place] [address], [place] [address] 13 Nov, 2014 [facility] [address] [id number] [address] [place] [address], [place] [address] Oct, [facility] [address] [id number] [address] [place] [address], [place] [address] Oct, [facility] [address] [id number] [address] [place] [address], [place] [address] Sep, [facility] [address] [id number] [address] [place] [address], [place] [address] Sep, [facility] [address] [id number] [address] [place] [address], [place] [address] Sep, [facility] [address] [id number] [address] [place] [address], [place] [address] Sep, [facility] [address] [id number] [address] [place] [address], [place] [address] Aug, [facility] [address] [id number] [address] [place] [address], [place] [address] Aug, [facility] [address] [id number] [address] [place] [address], [place] [address] Aug, [facility] [address] [id number] [address] [place] [address], [place] [address] Aug, [facility] [address] [id number] [address] [place] [address], [place] [address] Jul, [facility] [address] [id number] [address] [place] [address], [place] [address] Jul, [facility] [address] [id number] [address] [place] [address], [place] [address] Jun, [facility] [address] [id number] [address] [place] [address], [place] [address] Jun, [facility] [address] [id number] [address] [place] [address], [place] [address] May, [facility] [address] [id number] [address] [place] [address], [place] [address] May, [facility] [address] [id number] [address] [place] [address], [place] [address] May, [facility] [address] [id number] [address] [place] [address], [place] [address] May, [facility] [address] [id number] [address] [place] [address], [place] [address] May, [facility] [address] [id number] [address] [place] [address], [place] [address] May, [facility] [address] [id number] [address] [place] [address], [place] [address] Apr, [facility] [address] [id number] [address] [place] [address], [place] [address] Apr, [facility] [address] [id number] [address] [place] [address], [place] [address] 17 Apr, 2014 [facility] [address] [id number] [address] [place] [address], [place] [address] 17 Apr, 2014 [facility] [address] [id number] [address] [place] [address], [place] [address] 08 Apr, 2014 [facility] [address] [id number] [address] [place] [address], [place] [address] 08 Apr, 2014 [facility] [address] [id number] [address] [place] [address], [place] [address] Mar, [facility] [address] [id number] [address] [place] [address], [place] [address] Mar, [facility] [address] [id number] [address] [place] [address], [place] [address] Mar, [facility] [address] [id number] [address] [place] [address] Mar, [facility] [address] [id number] [facility] [place] [address] Feb, [facility] [address] [id number] [address] [place] [address], [place] [address] Feb, [facility] [address] [id number] [address] [place] [address], [place] [address] Feb, [facility] [address] [id number] [address] [place] [address], [place] [address] Feb, [facility] [address] [id number] [address] [place] [address], [place] [address] Jan, [facility] [address] [id number] [address] [place] [address], [place] [address] Jan, [facility] [address] [id number] [address] [place] [address], [place] [address] Jan, [facility] [address] [id number] [address] [place] [address], [place] [address] Jan, [facility] [address] [id number] [address] [place] [address], [place] [address] Jan, [facility] [address] [id number] [address] [place] [address], [place] [address] Jan, [facility] [address] [id number] [address] [place] [address], [place] [address] Jan, [facility] [address] [id number] [address] [place] [address], [place] [address] Jan, [facility] [address] [id number] [address] [place] [address], [place] [address] Jan, [facility] [address] [id number] [address] [place] [address], [place] [address] Jan, [facility] [address] [id number] [address] [place] [address], [place] [address] December, [facility] [address] [id number] [facility] [place] [address] December, [facility] [address] [id number] [facility] [place] [address] December, [facility] [address] [id number] [facility] [place] [address] December, [facility] [address] [id number] [facility] [place] [address] December, [facility] [address] [id number] [facility] [place] [address] Nov, [facility] [address] [id number] [address] [place] [address], [place] [address] Nov, [facility] [address] [id number] [address] [place] [address], [place] [address] Nov, [facility] [address] [id number] [address] [place] [address], [place] [address] Oct, [facility] [address] [id number] [address] [place] [address], [place] [address] Oct, [facility] [address] [id number] [address] [place] [address], [place] [address] Oct, [facility] [address] [id number] [address] [place] [address], [place] [address] Oct, [facility] [address] [id number] [address] [place] [address], [place] [address] Oct, [facility] [address] [id number] [address] [place] [address], [place] [address] Oct, [facility] [address] [id number] [address] [place] [address], [place] [address] Oct, [facility] [address] [id number] [address] [place] [address], [place] [address] Oct, [facility] [address] [id number] [address] [place] [address] [address] Oct, [facility] [address] [id number] [address] [place] [address], [place] [address] Sep, [facility] [address] [id number] [address] [place] [address], [place] [address] Sep, [facility] [address] [id number] [address] [place] [address], [place] [address] Aug, [facility] [address] [id number] [address] [place] [address], [place] [address] Aug, [facility] [address] [id number] [address] [place] [address], [place] [address] Aug, [facility] [address] [id number] [address] [place] [address], [place] [address] Aug, [facility] [address] [id number] [address] [place] [address], [place] [address] Jul, [facility] [address] [id number] [address] [place] [address], [place] [address] Jul, [facility] [address] [id number] [address] [place] [address], [place] [address] Jul, [facility] [address] [id number] [address] [place] [address], [place] [address] Jul, [facility] [address] [id number] [address] [place] [address], [place] [address] Jun, [facility] [address] [id number] [address] [place] [address] Jun, [facility] [address] [id number] [address] [place] [address], [place] [address] Jun, [facility] [address] [id number] [address] [place] [address], [place] [address] Jun, [facility] [address] [id number] [address] [place] [address], [place] [address] May, [facility] [address] [id number] [address] [place] [address], [place] [address] May, [facility] [address] [id number] [address] [place] [address], [place] [address] May, [facility] [address] [id number] [address] [place] [address], [place] [address] May, [facility] [address] [id number] [address] [place] [address], [place] [address] May, [facility] [address] [id number] [address] [place] [address], [place] [address] May, [facility] [address] [id number] [address] [place] [address], [place] [address] Apr, [facility] [address] [id number] [address] [place] [address], [place] [address] Mar, [facility] [address] [id number] [address] [place] [address], [place] [address] Mar, [facility] [address] [id number] [address] [place] [address], [place] [address] Mar, [facility] [address] [id number] [address] [place] [address], [place] [address] Feb, [facility] [address] [id number] [address] [place] [address], [place] [address] Feb, [facility] [address] [id number] [address] [place] [address], [place] [address] Feb, [facility] [address] [id number] [address] [place] [address], [place] [address] Jan, [facility] [address] [id number] [address] [place] [address], [place] [address] Jan, [facility] [address] [id number] [address] [place] [address], [place] [address] December, [facility] [address] [id number] [address] [place] [address], [place] [address] December, [facility] [address] [id number] [address] [place] [address], [place] [address] December, [facility] [address] [id number] [address] [place] [address], [place] [address] 29 Nov, 2012 [facility] [address] [id number] [address] [place] [address], [place] [address] 24 Nov, 2012 [facility] [address] [id number] [address] [place] [address], [place] [id number] Nov, [facility] [address] [id number] [address] [place] [address], [place] [id number] 2012 [facility] [address] [id number] [address] [place] [address], [place] [id number] 15 Nov, 2012 [facility] [address] [id number] [address] [place] [address], [place] [id number] Nov, [facility] [address] [id number] [address] [place] [address], [place] [id number] Oct, [facility] [address] [id number] [address] [place] [address], [place] [id number] Oct, [facility] [address] [id number] [address] [place] [address], [place] [id number] Oct, [facility] [address] [id number] [address] [place] [address], [place] [id number] Oct, [facility] [address] [id number] [address] [place] [address], [place] [id number] 28 Sep, 2012 [facility] [address] [id number] [address] [place] [address], [place] [id number] Sep, [facility] [address] [id number] [address] [place] [address], [place] [id number] 18 Sep, 2012 [facility] [address] [id number] [address] [place] [address], [place] [id number] Sep, [facility] [address] [id number] [address] [place] [id number] Sep, [facility] [address] [id number] [address] [place] [id number] Aug, [facility] [address] [id number] [address] [place] [id number] Aug, [facility] [address] [id number] [address] [place] [id number] Aug, [facility] [address] [id number] [address] [place] [id number] Aug, [facility] [address] [id number] [address] [place] [id number] Aug, [facility] [address] [id number] [address] [place] [id number] Aug, [facility] [address] [id number] [address] [place] [id number] May, [facility] [address] [id number] [address] [place] [id number] May, IMMUNIZATIONS No Known Immunizations SOCIAL HISTORY [...]
--- OUTSIDE RECORDS SUMMARY | 2020-01-16 00:23 | XMS REPORT ---
Author Author Darien VILLALOBOS Organization [facility] Address [address] [place] [address] Care Team Providers Care Pattern Scratcher Name Role Phone CHRISTOPHER VILLALOBOS Unavailable PROBLEMS Type Condition ICD9-CM Code LZT83-AP Code Onset Dates Condition S tatus SNOMED Code Problem Diabetes type 1, controlled E10.9 Ac tive 49632416 Problem Type 2 diabetes mellitus with hyperglycemia E11.65 Active [id number] Problem Other chronic pain G89.29 Active 8 4404898 Problem Schizoaffective disorder, depressive type F25.1 Active 84110004 Problem Type 1 diabetes mellitus with hyperglycemia E10.65 Active [id number] Problem Type 1 diabetes mellitus with diabetic polyneuropathy E10.42 Active 80414616 Problem Mood disorder F39 Active 692751 05 Problem Uncontrolled type 1 diabetes mellitus without complication E10.9 Active [id number] ALLERGIES No Information ENCOUNTERS Encounter Location Date Diagnosis [place] [address] [place] [id number] [address] [place] [phone] December, [place] [address] [place] [id number] [address] [place] [phone] Nov, [place] [address] [place] [id number] [address] [place] [id number] 14 Nov, 2016 Uncontrolled type 1 diabetes mellitus without complication E10.9 [facility] [address] [facility] [id number] [address] [place] [phone] 13 Nov, 2016 Impingement syndrome, should er, right M75.41 and Adhesive capsulitis of right shoulder M75.01 [facility] [address] [facility] [id number] [address] [place] [phone] 03 Nov, 2016 Uncontrolled type 1 diabetes mellitus without complication E10.9 [facility] [address] [place] [id number] [address] [place] [phone] Oct, Uncontrolled type 1 diabetes mellitus without complication E10.9 ; Other chronic pain G89.29 ; Pain in right shoulder M25.511 and Schizoaffective disorder, depressive type F25.1 [facility] [address] [id number] [address] [place] [phone] May, Mood disorder F39 and Contro lled diabetes mellitus type [address] [facility] [address] [id number] [address] [place] [phone] May, [facility] [address] [id number] [address] [place] [phone] May, [facility] [address] [id number] [address] [place] [phone] Apr, Mood disorder F39 ; 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 and Type 1 diabetes mellitus with hyperglycemia E10.65 [facility] [address] [id number] [address] [place] [phone] Apr, Mood disorder F39 [facility] [address] [id number] [address] [place] [phone] Mar, [facility] [address] [id number] [address] [place] [phone] Feb, [facility] [address] [id number] [address] [place] [phone] Jan, [facility] [address] [id number] [address] [place] [phone] Jan, [facility] [address] [id number] [address] [place] [phone] Jan, [facility] [address] [id number] [address] [place] [phone] December, [facility] [address] [id number] [address] [place] [phone] December, 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 and Controlled type 1 diabetes mellitus with diabetic neuropathy, with long-term current use of insulin E10.40 [facility] [address] [facility] [id number] [address] [place] [phone] December, Schizo-affective schizophren ia F25.0 [facility] [address] [facility] [id number] [address] [place] [phone] Nov, [facility] [address] [facility] [id number] [address] [place] [phone] Nov, Anxiety disorder, unspecifie d F41.9 and Schizo-affective schizophrenia F25.0 [facility] [address] [facility] [id number] [address] [place] [phone] Nov, Schizo-affective schizophren ia F25.0 [facility] [address] [facility] [id number] [address] [place] [phone] Oct, [facility] [address] [facility] [id number] [address] [place] [phone] Sep, [facility] [address] [facility] [id number] [address] [place] [phone] Sep, [facility] [address] [facility] [id number] [address] [place] [phone] Sep, [facility] [address] [facility] [id number] [address] [place] [phone] Aug, [facility] [address] [facility] [id number] [address] [place] [phone] Aug, [facility] [address] [facility] [id number] [address] [place] [phone] Jul, [facility] [address] [place] [id number] [address] [place] [phone] Jul, Diabetes type 1, controlled E10.9 [facility] [address] [facility] [id number] [address] [place] [phone] Jun, Diabetes mellitus without me ntion of complication, type II or unspecified type, uncontrolled 250.02 [facility] [address] [phone] Jun, Diabetes type 1, controlled E10.9 [place] [address] [address] May, Diabetes mellitus without me ntion of complication, type II or unspecified type, uncontrolled 250.02 [place] [address] [address] May, Anxiety 300.00 [place] [address] [id number] May, Diabetes type 1, controlled E10.9 ; Schizo-affective schizophrenia F25.0 ; Mood disorder F39 and Bipolar 1 disorder F31.9 [place] [address] [address] May, [place] [address] [address] May, Anxiety F41.9 and Depression F32.9 [place] [address] [address] Apr, Diabetes mellitus without me ntion of complication, type II or unspecified type, uncontrolled 250.02 [place] [address] [address] Apr, Anxiety 300.00 and Diabetes mellitus without mention of complication, type II or unspecified type, uncontrolled 250.02 [facility] [address] [address] Apr, [place] [address] [address] Apr, Anxiety 300.00 and Depressio n 311 [place] [address] [address] Apr, Major depression, recurrent 296.30 ; Anxiety, generalized 300.02 and No condition on Ryan II V71.09 [facility] [address] [id number] [address] [place] [phone] Apr, [facility] [address] [id number] [address] [place] [phone] Mar, Diabetes mellitus without me ntion of complication, type II or unspecified type, uncontrolled 250.[address] [facility] [address] [id number] [address] [place] [phone] Mar, [facility] [address] [id number] [address] [place] [phone] Feb, [facility] [address] [id number] [address] [place] [phone] Feb, [facility] [address] [id number] [address] [place] [phone] Feb, [facility] [address] [id number] [address] [place] [phone] Jan, [facility] [address] [id number] [address] [place] [phone] Jan, [facility] [address] [id number] [address] [place] [phone] Jan, [facility] [address] [facility] [id number] [address] [place] [phone] Jan, [facility] [address] [id number] [address] [place] [phone] December, [facility] [address] [id number] [address] [place] [id number] December, Dental examination V72.2 [facility] [address] [id number] [address] [place] [phone] December, Tooth pain 525.9 [facility] [address] [id number] [address] [place] [phone] December, [facility] [address] [id number] [address] [place] [address], [place] [address] 14 Nov, 2014 [facility] [address] [id number] [address] [place] [address], [place] [address] 13 Nov, 2014 [facility] [address] [id number] [address] [place] [address], [place] [address] Oct, [facility] [address] [id number] [address] [place] [address], [place] [address] Oct, [facility] [address] [id number] [address] [place] [address], [place] [address] Sep, [facility] [address] [id number] [address] [place] [address], [place] [address] Sep, [facility] [address] [id number] [address] [place] [address], [place] [address] Sep, [facility] [address] [id number] [address] [place] [address], [place] [address] Sep, [facility] [address] [id number] [address] [place] [address], [place] [address] Aug, [facility] [address] [id number] [address] [place] [address], [place] [address] Aug, [facility] [address] [id number] [address] [place] [address], [place] [address] Aug, [facility] [address] [id number] [address] [place] [address], [place] [address] Aug, [facility] [address] [id number] [address] [place] [address], [place] [address] Jul, [facility] [address] [id number] [address] [place] [address], [place] [address] Jul, [facility] [address] [id number] [address] [place] [address], [place] [address] Jun, [facility] [address] [id number] [address] [place] [address], [place] [address] Jun, [facility] [address] [id number] [address] [place] [address], [place] [address] May, [facility] [address] [id number] [address] [place] [address], [place] [address] May, [facility] [address] [id number] [address] [place] [address], [place] [address] May, [facility] [address] [id number] [address] [place] [address], [place] [address] May, [facility] [address] [id number] [address] [place] [address], [place] [address] May, [facility] [address] [id number] [address] [place] [address], [place] [address] May, [facility] [address] [id number] [address] [place] [address], [place] [address] Apr, [facility] [address] [id number] [address] [place] [address], [place] [address] Apr, [facility] [address] [id number] [address] [place] [address], [place] [address] 17 Apr, 2014 [facility] [address] [id number] [address] [place] [address], [place] [address] 17 Apr, 2014 [facility] [address] [id number] [address] [place] [address], [place] [address] 08 Apr, 2014 [facility] [address] [id number] [address] [place] [address], [place] [address] 08 Apr, 2014 [facility] [address] [id number] [address] [place] [address], [place] [address] Mar, [facility] [address] [id number] [address] [place] [address], [place] [address] Mar, [facility] [address] [id number] [address] [place] [address], [place] [address] Mar, [facility] [address] [id number] [address] [place] [phone] Mar, [facility] [address] [id number] [facility] [address] Feb, [facility] [address] [id number] [address] [place] [address], [place] [address] Feb, [facility] [address] [id number] [address] [place] [address], [place] [address] Feb, [facility] [address] [id number] [address] [place] [address], [place] [address] Feb, [facility] [address] [id number] [address] [place] [address], [place] [address] Jan, [facility] [address] [id number] [address] [place] [address], [place] [address] Jan, [facility] [address] [id number] [address] [place] [address], [place] [address] Jan, [facility] [address] [id number] [address] [place] [address], [place] [address] Jan, [facility] [address] [id number] [address] [place] [address], [place] [address] Jan, [facility] [address] [id number] [address] [place] [address], [place] [address] Jan, [facility] [address] [id number] [address] [place] [address], [place] [address] Jan, [facility] [address] [id number] [address] [place] [address], [place] [address] Jan, [facility] [address] [id number] [address] [place] [address], [place] [address] Jan, [facility] [address] [id number] [address] [place] [address], [place] [address] Jan, [facility] [address] [id number] [address] [place] [address], [place] [address] December, [facility] [address] [id number] [facility] [address] December, [facility] [address] [id number] [facility] [address] December, [facility] [address] [id number] [facility] [address] December, [facility] [address] [id number] [facility] [address] December, [facility] [address] [id number] [facility] [address] Nov, [facility] [address] [id number] [address] [place] [address], [place] [address] Nov, [facility] [address] [id number] [address] [place] [address], [place] [address] Nov, [facility] [address] [id number] [address] [place] [address], [place] [address] Oct, [facility] [address] [id number] [address] [place] [address], [place] [address] Oct, [facility] [address] [id number] [address] [place] [address], [place] [address] Oct, [facility] [address] [id number] [address] [place] [address], [place] [address] Oct, [facility] [address] [id number] [address] [place] [address], [place] [address] Oct, [facility] [address] [id number] [address] [place] [address], [place] [address] Oct, [facility] [address] [id number] [address] [place] [address], [place] [address] Oct, [facility] [address] [id number] [address] [place] [address], [place] [address] Oct, [facility] [address] [id number] [address] [place] [address] [address] Oct, [facility] [address] [id number] [address] [place] [address], [place] [address] Sep, [facility] [address] [id number] [address] [place] [address], [place] [address] Sep, [facility] [address] [id number] [address] [place] [address], [place] [address] Aug, [facility] [address] [id number] [address] [place] [address], [place] [address] Aug, [facility] [address] [id number] [address] [place] [address], [place] [address] Aug, [facility] [address] [id number] [address] [place] [address], [place] [address] Aug, [facility] [address] [id number] [address] [place] [address], [place] [address] Jul, [facility] [address] [id number] [address] [place] [address], [place] [address] Jul, [facility] [address] [id number] [address] [place] [address], [place] [address] Jul, [facility] [address] [id number] [address] [place] [address], [place] [address] Jul, [facility] [address] [id number] [address] [place] [address], [place] [address] Jun, [facility] [address] [id number] [address] [place] [id number] Jun, [facility] [address] [id number] [address] [place] [address], [place] [address] Jun, [facility] [address] [id number] [address] [place] [address], [place] [address] Jun, [facility] [address] [id number] [address] [place] [address], [place] [address] May, [facility] [address] [id number] [address] [place] [address], [place] [address] May, [facility] [address] [id number] [address] [place] [address], [place] [address] May, [facility] [address] [id number] [address] [place] [address], [place] [address] May, [facility] [address] [id number] [address] [place] [address], [place] [address] May, [facility] [address] [id number] [address] [place] [address], [place] [address] May, [facility] [address] [id number] [address] [place] [address], [place] [address] Apr, [facility] [address] [id number] [address] [place] [address], [place] [address] Mar, [facility] [address] [id number] [address] [place] [address], [place] [address] Mar, [facility] [address] [id number] [address] [place] [address], [place] [address] Mar, [facility] [address] [id number] [address] [place] [address], [place] [address] Feb, [facility] [address] [id number] [address] [place] [address], [place] [address] Feb, [facility] [address] [id number] [address] [place] [address], [place] [address] Feb, [facility] [address] [id number] [address] [place] [address], [place] [address] Jan, [facility] [address] [id number] [address] [place] [address], [place] [address] Jan, [facility] [address] [id number] [address] [place] [address], [place] [address] December, [facility] [address] [id number] [address] [place] [address], [place] [address] December, [facility] [address] [id number] [address] [place] [address], [place] [id number] December, [facility] [address] [id number] [address] [place] [address], [place] [id number] 29 Nov, 2012 [facility] [address] [id number] [address] [place] [address], [place] [id number] 24 Nov, 2012 [facility] [address] [id number] [address] [place] [address], [place] [id number] Nov, [facility] [address] [id number] [address] [place] [address], [place] [id number] 2012 [facility] [address] [id number] [address] [place] [address], [place] [id number] 15 Nov, 2012 [facility] [address] [id number] [address] [place] [address], [place] [id number] Nov, [facility] [address] [id number] [address] [place] [address], [place] [id number] Oct, [facility] [address] [id number] [address] [place] [address], [place] [id number] Oct, [facility] [address] [id number] [address] [place] [address], [place] [id number] Oct, [facility] [address] [id number] [address] [place] [address], [place] [id number] Oct, [facility] [address] [id number] [address] [place] [address], [place] [id number] 28 Sep, 2012 [facility] [address] [id number] [address] [place] [address], [place] [id number] Sep, [facility] [address] [id number] [address] [place] [address], [place] [id number] 18 Sep, 2012 [facility] [address] [id number] [address] [place] [address], [place] [id number] Sep, [facility] [address] [id number] [address] [place] [id number] Sep, [facility] [address] [id number] [address] [place] [id number] Aug, [facility] [address] [id number] [address] [place] [id number] Aug, [facility] [address] [id number] [address] [place] [id number] Aug, [facility] [address] [id number] [address] [place] [id number] Aug, [facility] [address] [id number] [address] [place] [id number] Aug, [facility] [address] [id number] [address] [place] [id number] Aug, [facility] [address] [id number] [address] [place] [id number] May, [facility] [address] [id number] [address] [place] [id number] May, IMMUNIZATIONS No Known Immunizations SOCIAL HISTORY [...]
--- OUTSIDE RECORDS SUMMARY | 2020-01-16 00:24 | XMS REPORT ---
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 Name Role Phone Migration, Doctor Unavailable Unavailable PROBLEMS Type Condition ICD9-CM Code [id number] Code Onset Dates Condition S tatus SNOMED Code Problem Diabetes type 1, controlled E10.9 Ac tive 78527519 Problem Type 2 diabetes mellitus with hyperglycemia E11.65 Active 140184232364104 Problem Other chronic pain G89.29 Active 8 8454180 Problem Schizoaffective disorder, depressive type F25.1 Active 88573313 Problem Type 1 diabetes mellitus with hyperglycemia E10.65 Active 198599371706349 Problem Type 1 diabetes mellitus with diabetic polyneuropathy E10.42 Active 10069376 Problem Mood disorder F39 Active 367476 05 Problem Uncontrolled type 1 diabetes mellitus without complication E10.9 Active [id number] ALLERGIES No Information ENCOUNTERS Encounter Location Date Diagnosis [facility] [address] [id number] [address] [place] [address] December, [facility] [address] [id number] [address] [place] [address] Nov, [facility] [address] [id number] [address] [place] [address] 14 Nov, 2016 Uncontrolled type 1 diabetes mellitus without complication E10.9 [facility] [address] [id number] [address] [place] [id number] 13 Nov, 2016 Impingement syndrome, should er, right M75.41 and Adhesive capsulitis of right shoulder M75.01 [facility] [address] [id number] [address] [place] [address] 03 Nov, 2016 Uncontrolled type 1 diabetes mellitus without complication E10.9 [facility] [address] [id number] [address] [place] [address] Oct, Uncontrolled type 1 diabetes mellitus without complication E10.9 ; Other chronic pain G89.29 ; Pain in right shoulder M25.511 and Schizoaffective disorder, depressive type F25.1 [facility] [address] [id number] [address] [place] [address] May, Mood disorder F39 and Contro lled diabetes mellitus type 1 without complications E10.9 [facility] [address] [id number] [address] [place] [address] May, [facility] [address] [id number] [address] [place] [address] May, [facility] [address] [id number] [address] [place] [address] Apr, Mood disorder F39 ; 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 and Type 1 diabetes mellitus with hyperglycemia E10.65 [facility] [address] [id number] [address] [place] [address] Apr, Mood disorder F39 [facility] [address] [id number] [address] [place] [address] Mar, [facility] [address] [id number] [address] [place] [address] Feb, [facility] [address] [id number] [address] [place] [address] Jan, [facility] [address] [id number] [address] [place] [address] Jan, [facility] [address] [id number] [address] [place] [phone] Jan, [facility] [address] [id number] [address] [place] [address] December, [facility] [address] [facility] [id number] [address] [place] [address] December, 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 and Controlled type 1 diabetes mellitus with diabetic neuropathy, with long-term current use of insulin E10.40 [facility] [address] [facility] [id number] [address] [place] [address] December, Schizo-affective schizophren ia F25.0 [facility] [address] [facility] [id number] [address] [place] [address] Nov, [facility] [address] [facility] [id number] [address] [place] [address] Nov, Anxiety disorder, unspecifie d F41.9 and Schizo-affective schizophrenia F25.0 [facility] [address] [facility] [id number] [address] [place] [phone] Nov, Schizo-affective schizophren ia F25.0 [facility] [address] [facility] [id number] [address] [place] [address] Oct, [facility] [address] [id number] [address] [place] [address] Sep, [facility] [address] [id number] [address] [place] [address] Sep, [facility] [address] [facility] [id number] [address] [place] [address] Sep, [facility] [address] [id number] [address] [place] [address] Aug, [facility] [address] [id number] [address] [place] [address] Aug, [facility] [address] [id number] [address] [place] [address] Jul, [facility] [address] [id number] [address] [place] [address] Jul, Diabetes type 1, controlled E10.9 [facility] [address] [id number] [address] [place] [address] Jun, Diabetes mellitus without me ntion of complication, type II or unspecified type, uncontrolled 250.02 [facility] [address] [id number] [address] [place] [address] Jun, Diabetes type 1, controlled E10.9 [address] [place] [address] [address] May, Diabetes mellitus without me ntion of complication, type II or unspecified type, uncontrolled 250.02 [address] [address] [address] May, Anxiety 300.00 [address] [place] [address] [address] May, Diabetes type 1, controlled E10.9 ; Schizo-affective schizophrenia F25.0 ; Mood disorder F39 and Bipolar 1 disorder F31.9 [address] [address] [address] May, [place] [address] [address] May, Anxiety F41.9 and Depression F32.9 [address] [place] [address] [address] Apr, Diabetes mellitus without me ntion of complication, type II or unspecified type, uncontrolled 250.02 [address] [place] [address] [address] Apr, Anxiety 300.00 and Diabetes mellitus without mention of complication, type II or unspecified type, uncontrolled 250.02 [address] [address] [address] Apr, [address] [place] [address] [address] Apr, Anxiety 300.00 and Depressio n [address] [address] Apr, Major depression, recurrent 296.30 ; Anxiety, generalized 300.02 and No condition on [place] II V71.09 [place] [address] [address] Apr, [facility] [address] [id number] [address] [place] [address] Mar, Diabetes mellitus without me ntion of complication, type II or unspecified type, uncontrolled 250.02 and Anxiety 300.00 [facility] [address] [id number] [address] [place] [address] Mar, [facility] [address] [id number] [address] [place] [address] Feb, [facility] [address] [id number] [address] [place] [address] Feb, [facility] [address] [id number] [address] [place] [address] Feb, [facility] [address] [id number] [address] [place] [address] Jan, [facility] [address] [id number] [address] [place] [address] Jan, [facility] [address] [id number] [address] [place] [address] Jan, [facility] [address] [id number] [address] [place] [address] Jan, [facility] [address] [id number] [address] [place] [address] December, [facility] [address] [id number] [address] [place] [id number] December, Dental examination V72.2 [facility] [address] [id number] [address] [place] [address] December, Tooth pain 525.9 [facility] [address] [id number] [address] [place] [address] December, [facility] [address] [id number] [address] [place] [address] Nov, [facility] [address] [id number] [address] [place] [address], [place] [address] Nov, [facility] [address] [id number] [address] [place] [address], [place] [address] Oct, [facility] [address] [id number] [address] [place] [address], [place] [address] Oct, [facility] [address] [id number] [address] [place] [address], [place] [address] Sep, [facility] [address] [id number] [address] [place] [address], [place] [address] Sep, [facility] [address] [id number] [address] [place] [address], [place] [address] Sep, [facility] [address] [id number] [address] [place] [address], [place] [address] Sep, [facility] [address] [id number] [address] [place] [address], [place] [address] Aug, [facility] [address] [id number] [address] [place] [address], [place] [address] Aug, [facility] [address] [id number] [address] [place] [address], [place] [address] Aug, [facility] [address] [id number] [address] [place] [address], [place] [address] Aug, [facility] [address] [id number] [address] [place] [address], [place] [address] Jul, [facility] [address] [id number] [address] [place] [address], [place] [address] Jul, [facility] [address] [id number] [address] [place] [address], [place] [address] Jun, [facility] [address] [id number] [address] [place] [address], [place] [address] Jun, [facility] [address] [id number] [address] [place] [address], [place] [address] May, [facility] [address] [id number] [address] [place] [address], [place] [address] May, [facility] [address] [id number] [address] [place] [address], [place] [address] May, [facility] [address] [id number] [address] [place] [address], [place] [address] May, [facility] [address] [id number] [address] [place] [address], [place] [address] May, [facility] [address] [id number] [address] [place] [address], [place] [address] May, [facility] [address] [id number] [address] [place] [address], [place] [address] Apr, [facility] [address] [id number] [address] [place] [address], [place] [address] Apr, [facility] [address] [id number] [address] [place] [address], [place] [address] Apr, [facility] [address] [id number] [address] [place] [address], [place] [address] Apr, [facility] [address] [id number] [address] [place] [address], [place] [address] Apr, [facility] [address] [id number] [address] [place] [address], [place] [address] Apr, [facility] [address] [id number] [address] [place] [address], [place] [address] Mar, [facility] [address] [id number] [address] [place] [address], [place] [address] Mar, [facility] [address] [id number] [address] [place] [address], [place] [address] Mar, [facility] [address] [id number] [address] [place] [address], [place] [address] Mar, [facility] [address] [id number] [facility] [place] [address] Feb, [facility] [address] [id number] [facility] [place] [address] Feb, [facility] [address] [id number] [facility] [place] [address] Feb, [facility] [address] [id number] [facility] [place] [address] Feb, [facility] [address] [id number] [facility] [place] [address] Jan, [facility] [address] [id number] [address] [place] [address], [place] [address] Jan, [facility] [address] [id number] [address] [place] [address], [place] [address] Jan, [facility] [address] [id number] [address] [place] [address], [place] [address] Jan, [facility] [address] [id number] [address] [place] [address], [place] [address] Jan, [facility] [address] [id number] [address] [place] [address], [place] [address] Jan, [facility] [address] [id number] [address] [place] [address], [place] [address] Jan, [facility] [address] [id number] [address] [place] [address], [place] [address] Jan, [facility] [address] [id number] [address] [place] [address], [place] [address] Jan, [facility] [address] [id number] [address] [place] [address], [place] [address] Jan, [facility] [address] [id number] [address] [place] [address], [place] [address] December, [facility] [address] [id number] [address] [place] [address], [place] [address] December, [facility] [address] [id number] [facility] [place] [address] December, [facility] [address] [id number] [address] [place] [address], [place] [address] December, [facility] [address] [id number] [address] [place] [address], [place] [address] December, [facility] [address] [id number] [address] [place] [address], [place] [address] Nov, [facility] [address] [id number] [address] [place] [address], [place] [address] Nov, [facility] [address] [id number] [address] [place] [address], [place] [address] Nov, [facility] [address] [id number] [address] [place] [address], [place] [address] Oct, [facility] [address] [id number] [address] [place] [address], [place] [address] Oct, [facility] [address] [id number] [address] [place] [address], [place] [address] Oct, [facility] [address] [id number] [address] [place] [address], [place] [address] Oct, [facility] [address] [id number] [address] [place] [address], [place] [address] Oct, [facility] [address] [id number] [address] [place] [address], [place] [address] Oct, [facility] [address] [id number] [address] [place] [address], [place] [address] Oct, [facility] [address] [id number] [address] [place] [address], [place] [address] Oct, [facility] [address] [id number] [address] [place] [address], [place] [address] Oct, [facility] [address] [id number] [address] [place] [address], [place] [address] Sep, [facility] [address] [id number] [address] [place] [address], [place] [address] Sep, [facility] [address] [id number] [address] [place] [address], [place] [address] Aug, [facility] [address] [id number] [address] [place] [address], [place] [address] Aug, [facility] [address] [id number] [address] [place] [address], [place] [address] Aug, [facility] [address] [id number] [address] [place] [address], [place] [address] Aug, [facility] [address] [id number] [address] [place] [address], [place] [address] Jul, [facility] [address] [id number] [address] [place] [address], [place] [address] Jul, [facility] [address] [id number] [address] [place] [address], [place] [address] Jul, [facility] [address] [id number] [address] [place] [address], [place] [address] Jul, [facility] [address] [id number] [address] [place] [address], [place] [address] Jun, [facility] [address] [id number] [address] [place] [address], [place] [address] Jun, [facility] [address] [id number] [address] [place] [address], [place] [address] Jun, [facility] [address] [id number] [address] [place] [address], [place] [address] Jun, [facility] [address] [id number] [address] [place] [address], [place] [address] May, [facility] [address] [id number] [address] [place] [address], [place] [address] May, [facility] [address] [id number] [address] [place] [address], [place] [address] May, [facility] [address] [id number] [address] [place] [address], [place] [address] May, [facility] [address] [id number] [address] [place] [address], [place] [address] May, [facility] [address] [id number] [address] [place] [address], [place] [address] May, [facility] [address] [id number] [address] [place] [address], [place] [address] Apr, [facility] [address] [id number] [address] [place] [address], [place] [address] Mar, [facility] [address] [id number] [address] [place] [address], [place] [address] Mar, [facility] [address] [id number] [address] [place] [address], [place] [address] Mar, [facility] [address] [id number] [address] [place] [address], [place] [address] Feb, [facility] [address] [id number] [address] [place] [address], [place] [address] Feb, [facility] [address] [id number] [address] [place] [address], [place] [address] Feb, [facility] [address] [id number] [address] [place] [address], [place] [address] Jan, [facility] [address] [id number] [address] [place] [address], [place] [address] Jan, [facility] [address] [id number] [address] [place] [address], [place] [address] December, [facility] [address] [id number] [address] [place] [address], [place] [address] December, [facility] [address] [id number] [address] [place] [address], [place] [address] December, [facility] [address] [id number] [address] [place] [address], [place] [address] 29 Nov, 2012 [facility] [address] [id number] [address] [place] [address], [place] [address] 24 Nov, 2012 [facility] [address] [id number] [address] [place] [address], [place] [address] Nov, [facility] [address] [id number] [address] [place] [address], [place] [address] 2012 [facility] [address] [id number] [address] [place] [address], [place] [address] 15 Nov, 2012 [facility] [address] [id number] [address] [place] [address], [place] [address] 05 Nov, 2012 [facility] [address] [id number] [address] [place] [address], [place] [address] Oct, [facility] [address] [id number] [address] [place] [address], [place] [id number] 14 Oct, 2012 [facility] [address] [id number] [address] [place] [address], [place] [address] Oct, [facility] [address] [id number] [address] [place] [address], [place] [address] Oct, [facility] [address] [id number] [address] [place] [address], [place] [address] 28 Sep, 2012 [facility] [address] [id number] [address] [place] [address], [place] [address] Sep, [facility] [address] [id number] [address] [place] [address], [place] [address] 18 Sep, 2012 [facility] [address] [id number] [address] [place] [address], [place] [address] Sep, [facility] [address] [id number] [address] [place] [address], [place] [address] Sep, [facility] [address] [id number] [address] [place] [phone] Aug, [facility] [address] [id number] [address] [place] [phone] Aug, [facility] [address] [id number] [address] [place] [phone] Aug, [facility] [address] [id number] [address] [place] [id number] Aug, [facility] [address] [id number] [address] [place] [id number] Aug, [facility] [address] [id number] [address] [place] [phone] Aug, [facility] [address] [id number] [address] [place] [id number] May, [facility] [address] [id number] [address] [place] [id number] May, IMMUNIZATIONS No Known Immunizations SOCIAL HISTORY Never Assessed REASON FOR VISIT EMR-[facility] PLAN OF CARE VITAL SIGNS MEDICATIONS Unknown Medications RESULTS No Results PROCEDURES No Known procedures INSTRUCTIONS MEDICATIONS ADMINISTERED No Known Medications MEDICAL (GENERAL) HISTORY Type Description Date Medical History type I diabetes Medical History hx of MRSA infections Medical History depression Medical History anxiety Surgical History I & D-[facility] Hospitalization History MRSA 2003
--- OUTSIDE RECORDS SUMMARY | 2020-01-16 00:24 | XMS REPORT ---
Author Author Darien Guerra Doctor Organization [facility] Address Unknown Phone Unavailable Care Team Providers Care Senior Loan Officer Name Role Phone Migration, Doctor Unavailable Unavailable PROBLEMS Type Condition ICD9-CM Code VYN19-GQ Code Onset Dates Condition S tatus SNOMED Code Problem Diabetes type 1, controlled E10.9 Ac tive 72043059 Problem Type 2 diabetes mellitus with hyperglycemia E11.65 Active 892911055995926 Problem Other chronic pain G89.29 Active 8 7991778 Problem Schizoaffective disorder, depressive type F25.1 Active 14444130 Problem Type 1 diabetes mellitus with hyperglycemia E10.65 Active [id number] Problem Type 1 diabetes mellitus with diabetic polyneuropathy E10.42 Active 26656101 Problem Mood disorder F39 Active 832411 05 Problem Uncontrolled type 1 diabetes mellitus without complication E10.9 Active [id number] ALLERGIES No Information ENCOUNTERS Encounter Location Date Diagnosis [facility] [address] [id number] [address] [place] [address] December, [facility] [address] [id number] [address] [place] [address] Nov, [facility] [address] [id number] [address] [place] [address] 14 Nov, 2016 Uncontrolled type 1 diabetes mellitus without complication E10.9 [facility] [address] [id number] [address] [place] [address] 13 Nov, 2016 Impingement syndrome, should er, right M75.41 and Adhesive capsulitis of right shoulder M75.01 [facility] [address] [id number] [address] [place] [address] 03 Nov, 2016 Uncontrolled type 1 diabetes mellitus without complication E10.9 [facility] [address] [id number] [address] [place] [address] Oct, Uncontrolled type 1 diabetes mellitus without complication E10.9 ; Other chronic pain G89.29 ; Pain in right shoulder M25.511 and Schizoaffective disorder, depressive type F25.1 [facility] [address] [id number] [address] [place] [address] May, Mood disorder F39 and Contro lled diabetes mellitus type 1 without complications E10.9 [facility] [address] [id number] [address] [place] [address] May, [facility] [address] [id number] [address] [place] [address] May, [facility] [address] [id number] [address] [place] [address] Apr, Mood disorder F39 ; 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 and Type 1 diabetes mellitus with hyperglycemia E10.65 [facility] [address] [id number] [address] [place] [address] Apr, Mood disorder F39 [facility] [address] [id number] [address] [place] [address] Mar, [facility] [address] [id number] [address] [place] [address] Feb, [facility] [address] [id number] [address] [place] [address] Jan, [facility] [address] [id number] [address] [place] [address] Jan, [facility] [address] [id number] [address] [place] [address] Jan, [facility] [address] [id number] [address] [place] [address] December, [facility] [address] [facility] [id number] [address] [place] [address] December, 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 and Controlled type 1 diabetes mellitus with diabetic neuropathy, with long-term current use of insulin E10.40 [facility] [address] [facility] [id number] [address] [place] [address] December, Schizo-affective schizophren ia F25.0 [facility] [address] [facility] [id number] [address] [place] [address] Nov, [facility] [address] [facility] [id number] [address] [place] [address] Nov, Anxiety disorder, unspecifie d F41.9 and Schizo-affective schizophrenia F25.0 [facility] [address] [facility] [id number] [address] [place] [address] Nov, Schizo-affective schizophren ia F25.0 [facility] [address] [facility] [id number] [address] [place] [address] Oct, [facility] [address] [id number] [address] [place] [address] Sep, [facility] [address] [id number] [address] [place] [address] Sep, [facility] [address] [facility] [id number] [address] [place] [address] Sep, [facility] [address] [id number] [address] [place] [address] Aug, [facility] [address] [id number] [address] [place] [address] Aug, [facility] [address] [id number] [address] [place] [address] Jul, [facility] [address] [id number] [address] [place] [address] Jul, Diabetes type 1, controlled E10.9 [facility] [address] [id number] [address] [place] [address] Jun, Diabetes mellitus without me ntion of complication, type II or unspecified type, uncontrolled 250.02 [facility] [address] [id number] [address] [place] [address] Jun, Diabetes type 1, controlled E10.9 [place] [address] [address] May, Diabetes mellitus without me ntion of complication, type II or unspecified type, uncontrolled 250.02 [place] [address] [address] May, Anxiety 300.00 [place] [address] [address] May, Diabetes type 1, controlled E10.9 ; Schizo-affective schizophrenia F25.0 ; Mood disorder F39 and Bipolar 1 disorder F31.9 [place] [address] [address] May, [place] [address] [address] May, Anxiety F41.9 and Depression F32.9 [place] [address] [address] Apr, Diabetes mellitus without me ntion of complication, type II or unspecified type, uncontrolled 250.02 [place] [address] [address] Apr, Anxiety 300.00 and Diabetes mellitus without mention of complication, type II or unspecified type, uncontrolled 250.02 [place] [address] [address] Apr, [place] [address] [address] Apr, Anxiety 300.00 and Depressio n 311 [place] [address] [address] [address] Apr, Major depression, recurrent 296.30 ; Anxiety, generalized 300.02 and No condition on [facility] V71.09 [place] [address] [address] Apr, [facility] [address] [id number] [address] [place] [address] Mar, Diabetes mellitus without me ntion of complication, type II or unspecified type, uncontrolled 250.02 and Anxiety 300.00 [facility] [address] [id number] [address] [place] [address] Mar, [facility] [address] [id number] [address] [place] [address] Feb, [facility] [address] [id number] [address] [place] [address] Feb, [facility] [address] [id number] [address] [place] [address] Feb, [facility] [address] [id number] [address] [place] [address] Jan, [facility] [address] [id number] [address] [place] [address] Jan, [facility] [address] [id number] [address] [place] [address] Jan, [facility] [address] [id number] [address] [place] [address] Jan, [facility] [address] [id number] [address] [place] [address] December, [facility] [address] [id number] [address] [place] [id number] December, Dental examination V72.2 [facility] [address] [id number] [address] [place] [address] December, Tooth pain 525.9 [facility] [address] [id number] [address] [place] [address] December, [facility] [address] [id number] [address] [place] [address] Nov, [facility] [address] [id number] [address] [place] [address], [place] [address] Nov, [facility] [address] [id number] [address] [place] [address], [place] [address] Oct, [facility] [address] [id number] [address] [place] [address], [place] [address] Oct, [facility] [address] [id number] [address] [place] [address], [place] [address] Sep, [facility] [address] [id number] [address] [place] [address], [place] [address] Sep, [facility] [address] [id number] [address] [place] [address], [place] [address] Sep, [facility] [address] [id number] [address] [place] [address], [place] [address] Sep, [facility] [address] [id number] [address] [place] [address], [place] [address] Aug, [facility] [address] [id number] [address] [place] [address], [place] [address] Aug, [facility] [address] [id number] [address] [place] [address], [place] [address] Aug, [facility] [address] [id number] [address] [place] [address], [place] [address] Aug, [facility] [address] [id number] [address] [place] [address], [place] [address] Jul, [facility] [address] [id number] [address] [place] [address], [place] [address] Jul, [facility] [address] [id number] [address] [place] [address], [place] [address] Jun, [facility] [address] [id number] [address] [place] [address], [place] [address] Jun, [facility] [address] [id number] [address] [place] [address], [place] [address] May, [facility] [address] [id number] [address] [place] [address], [place] [address] May, [facility] [address] [id number] [address] [place] [address], [place] [address] May, [facility] [address] [id number] [address] [place] [address], [place] [address] May, [facility] [address] [id number] [address] [place] [address], [place] [address] May, [facility] [address] [id number] [address] [place] [address], [place] [address] May, [facility] [address] [id number] [address] [place] [address], [place] [address] Apr, [facility] [address] [id number] [address] [place] [address], [place] [address] Apr, [facility] [address] [id number] [address] [place] [address], [place] [address] Apr, [facility] [address] [id number] [address] [place] [address], [place] [address] Apr, [facility] [address] [id number] [address] [place] [address], [place] [address] Apr, [facility] [address] [id number] [address] [place] [address], [place] [address] Apr, [facility] [address] [id number] [address] [place] [address], [place] [address] Mar, [facility] [address] [id number] [address] [place] [address], [place] [address] Mar, [facility] [address] [id number] [address] [place] [address], [place] [address] Mar, [facility] [address] [id number] [address] [place] [address], [place] [address] Mar, [facility] [address] [id number] [facility] [place] [address] Feb, [facility] [address] [id number] [facility] [place] [address] Feb, [facility] [address] [id number] [facility] [place] [address] Feb, [facility] [address] [id number] [facility] [place] [address] Feb, [facility] [address] [id number] [facility] [place] [address] Jan, [facility] [address] [id number] [address] [place] [address], [place] [address] Jan, [facility] [address] [id number] [address] [place] [address], [place] [address] Jan, [facility] [address] [id number] [address] [place] [address], [place] [address] Jan, [facility] [address] [id number] [address] [place] [address], [place] [address] Jan, [facility] [address] [id number] [address] [place] [address], [place] [address] Jan, [facility] [address] [id number] [address] [place] [address], [place] [address] Jan, [facility] [address] [id number] [address] [place] [address], [place] [address] Jan, [facility] [address] [id number] [address] [place] [address], [place] [address] Jan, [facility] [address] [id number] [address] [place] [address], [place] [address] Jan, [facility] [address] [id number] [address] [place] [address], [place] [address] December, [facility] [address] [id number] [address] [place] [address], [place] [address] December, [facility] [address] [id number] [facility] [place] [address] December, [facility] [address] [id number] [address] [place] [address], [place] [address] December, [facility] [address] [id number] [address] [place] [address], [place] [address] December, [facility] [address] [id number] [address] [place] [address], [place] [address] Nov, [facility] [address] [id number] [address] [place] [address], [place] [address] Nov, [facility] [address] [id number] [address] [place] [address], [place] [address] Nov, [facility] [address] [id number] [address] [place] [address], [place] [address] Oct, [facility] [address] [id number] [address] [place] [address], [place] [address] Oct, [facility] [address] [id number] [address] [place] [address], [place] [address] Oct, [facility] [address] [id number] [address] [place] [address], [place] [address] Oct, [facility] [address] [id number] [address] [place] [address], [place] [address] Oct, [facility] [address] [id number] [address] [place] [address], [place] [address] Oct, [facility] [address] [id number] [address] [place] [address], [place] [address] Oct, [facility] [address] [id number] [address] [place] [address], [place] [address] Oct, [facility] [address] [id number] [address] [place] [address], [place] [address] Oct, [facility] [address] [id number] [address] [place] [address], [place] [address] Sep, [facility] [address] [id number] [address] [place] [address], [place] [address] Sep, [facility] [address] [id number] [address] [place] [address], [place] [address] Aug, [facility] [address] [id number] [address] [place] [address], [place] [address] Aug, [facility] [address] [id number] [address] [place] [address], [place] [address] Aug, [facility] [address] [id number] [address] [place] [address], [place] [address] Aug, [facility] [address] [id number] [address] [place] [address], [place] [address] Jul, [facility] [address] [id number] [address] [place] [address], [place] [address] Jul, [facility] [address] [id number] [address] [place] [address], [place] [address] Jul, [facility] [address] [id number] [address] [place] [address], [place] [address] Jul, [facility] [address] [id number] [address] [place] [address], [place] [address] Jun, [facility] [address] [id number] [address] [place] [address], [place] [address] Jun, [facility] [address] [id number] [address] [place] [address], [place] [address] Jun, [facility] [address] [id number] [address] [place] [address], [place] [address] Jun, [facility] [address] [id number] [address] [place] [address], [place] [address] May, [facility] [address] [id number] [address] [place] [address], [place] [address] May, [facility] [address] [id number] [address] [place] [address], [place] [address] May, [facility] [address] [id number] [address] [place] [address], [place] [address] May, [facility] [address] [id number] [address] [place] [address], [place] [address] May, [facility] [address] [id number] [address] [place] [address], [place] [address] May, [facility] [address] [id number] [address] [place] [address], [place] [address] Apr, [facility] [address] [id number] [address] [place] [address], [place] [address] Mar, [facility] [address] [id number] [address] [place] [address], [place] [address] Mar, [facility] [address] [id number] [address] [place] [address], [place] [address] Mar, [facility] [address] [id number] [address] [place] [address], [place] [address] Feb, [facility] [address] [id number] [address] [place] [address], [place] [address] Feb, [facility] [address] [id number] [address] [place] [address], [place] [address] Feb, [facility] [address] [id number] [address] [place] [address], [place] [address] Jan, [facility] [address] [id number] [address] [place] [address], [place] [address] Jan, [facility] [address] [id number] [address] [place] [address], [place] [address] December, [facility] [address] [id number] [address] [place] [address], [place] [address] December, [facility] [address] [id number] [address] [place] [address], [place] [address] December, [facility] [address] [id number] [address] [place] [address], [place] [address] 29 Nov, 2012 [facility] [address] [id number] [address] [place] [address], [place] [address] 24 Nov, 2012 [facility] [address] [id number] [address] [place] [address], [place] [address] Nov, [facility] [address] [id number] [address] [place] [address], [place] [address] 2012 [facility] [address] [id number] [address] [place] [address], [place] [address] 15 Nov, 2012 [facility] [address] [id number] [address] [place] [address], [place] [address] 05 Nov, 2012 [facility] [address] [id number] [address] [place] [address], [place] [address] Oct, [facility] [address] [id number] [address] [place] [address], [place] [address] 14 Oct, 2012 [facility] [address] [id number] [address] [place] [address], [place] [address] Oct, [facility] [address] [id number] [address] [place] [address], [place] [address] Oct, [facility] [address] [id number] [address] [place] [address], [place] [address] 28 Sep, 2012 [facility] [address] [id number] [address] [place] [address], [place] [address] Sep, [facility] [address] [id number] [address] [place] [address], [place] [address] 18 Sep, 2012 [facility] [address] [id number] [address] [place] [address], [place] [address] Sep, [facility] [address] [id number] [address] [place] [address], [place] [address] Sep, [facility] [address] [id number] [address] [place] [phone] Aug, [facility] [address] [id number] [address] [place] [id number] Aug, [facility] [address] [id number] [address] [place] [phone] Aug, [facility] [address] [id number] [address] [place] [address] Aug, [facility] [address] [id number] [address] [place] [address] Aug, [facility] [address] [id number] [address] [place] [phone] Aug, [facility] [address] [id number] [address] [place] [phone] May, [facility] [address] [id number] [address] [place] [phone] May, IMMUNIZATIONS No Known Immunizations SOCIAL HISTORY Never Assessed REASON FOR VISIT EMR-[facility] [place] PLAN OF CARE VITAL SIGNS MEDICATIONS Unknown Medications RESULTS No Results PROCEDURES No Known procedures INSTRUCTIONS MEDICATIONS ADMINISTERED No Known Medications MEDICAL (GENERAL) HISTORY Type Description Date Medical History type I diabetes Medical History hx of MRSA infections Medical History depression Medical History anxiety Surgical History I & D-MRSA Hospitalization History MRSA 2003
--- OUTSIDE RECORDS SUMMARY | 2020-01-16 00:24 | XMS REPORT ---
Author Author Darien Guerra Doctor Organization [facility] Address Unknown Phone Unavailable Care Team Providers Care Mapping Pilot Name Role Phone Migration, Doctor Unavailable Unavailable PROBLEMS Type Condition ICD9-CM Code [id number] Code Onset Dates Condition S tatus SNOMED Code Problem Diabetes type 1, controlled E10.9 Ac tive 26717581 Problem Type 2 diabetes mellitus with hyperglycemia E11.65 Active 750493803164818 Problem Other chronic pain G89.29 Active 8 1714606 Problem Schizoaffective disorder, depressive type F25.1 Active 02975868 Problem Type 1 diabetes mellitus with hyperglycemia E10.65 Active 580874823050027 Problem Type 1 diabetes mellitus with diabetic polyneuropathy E10.42 Active 47941740 Problem Mood disorder F39 Active 096000 05 Problem Uncontrolled type 1 diabetes mellitus without complication E10.9 Active [id number] ALLERGIES No Information ENCOUNTERS Encounter Location Date Diagnosis [facility] [address] [id number] [address] [place] [address] December, [facility] [address] [id number] [address] [place] [address] Nov, [facility] [address] [id number] [address] [place] [address] 14 Nov, 2016 Uncontrolled type 1 diabetes mellitus without complication E10.9 [facility] [address] [id number] [address] [place] [address] 13 Nov, 2016 Impingement syndrome, should er, right M75.41 and Adhesive capsulitis of right shoulder M75.01 [facility] [address] [id number] [address] [place] [address] 03 Nov, 2016 Uncontrolled type 1 diabetes mellitus without complication E10.9 [facility] [address] [id number] [address] [place] [address] Oct, Uncontrolled type 1 diabetes mellitus without complication E10.9 ; Other chronic pain G89.29 ; Pain in right shoulder M25.511 and Schizoaffective disorder, depressive type F25.1 [facility] [address] [id number] [address] [place] [address] May, Mood disorder F39 and Contro lled diabetes mellitus type 1 without complications E10.9 [facility] [address] [id number] [address] [place] [address] May, [facility] [address] [id number] [address] [place] [address] May, [facility] [address] [id number] [address] [place] [address] Apr, Mood disorder F39 ; 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 and Type 1 diabetes mellitus with hyperglycemia E10.65 [facility] [address] [id number] [address] [place] [address] Apr, Mood disorder F39 [facility] [address] [id number] [address] [place] [address] Mar, [facility] [address] [id number] [address] [place] [address] Feb, [facility] [address] [id number] [address] [place] [address] Jan, [facility] [address] [id number] [address] [place] [address] Jan, [facility] [address] [id number] [address] [place] [address] Jan, [facility] [address] [id number] [address] [place] [address] December, [facility] [address] [facility] [id number] [address] [place] [address] December, 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 and Controlled type 1 diabetes mellitus with diabetic neuropathy, with long-term current use of insulin E10.40 [facility] [address] [facility] [id number] [address] [place] [address] December, Schizo-affective schizophren ia F25.0 [facility] [address] [facility] [id number] [address] [place] [address] Nov, [facility] [address] [facility] [id number] [address] [place] [address] Nov, Anxiety disorder, unspecifie d F41.9 and Schizo-affective schizophrenia F25.0 [facility] [address] [facility] [id number] [address] [place] [address] Nov, Schizo-affective schizophren ia F25.0 [facility] [address] [facility] [id number] [address] [place] [address] Oct, [facility] [address] [id number] [address] [place] [address] Sep, [facility] [address] [id number] [address] [place] [address] Sep, [facility] [address] [facility] [id number] [address] [place] [address] Sep, [facility] [address] [id number] [address] [place] [address] Aug, [facility] [address] [id number] [address] [place] [address] Aug, [facility] [address] [id number] [address] [place] [address] Jul, [facility] [address] [id number] [address] [place] [address] Jul, Diabetes type 1, controlled E10.9 [facility] [address] [id number] [address] [place] [address] Jun, Diabetes mellitus without me ntion of complication, type II or unspecified type, uncontrolled 250.02 [facility] [address] [id number] [address] [place] [address] Jun, Diabetes type 1, controlled E10.9 [address] [address] [address] May, Diabetes mellitus without me ntion of complication, type II or unspecified type, uncontrolled 250.02 [address] [address] May, Anxiety 300.00 [place] [address] [address] May, Diabetes type 1, controlled E10.9 ; Schizo-affective schizophrenia F25.0 ; Mood disorder F39 and Bipolar 1 disorder F31.9 [place] [address] [address] May, [place] [address] [address] May, Anxiety F41.9 and Depression F32.9 [place] [address] [address] Apr, Diabetes mellitus without me ntion of complication, type II or unspecified type, uncontrolled 250.02 [address] [address] [address] Apr, Anxiety 300.00 and Diabetes mellitus without mention of complication, type II or unspecified type, uncontrolled 250.02 [address] [address] [address] Apr, [place] [address] [address] Apr, Anxiety 300.00 and Depressio n [address] [address] Apr, Major depression, recurrent 296.30 ; Anxiety, generalized 300.02 and No condition on [place] II V71.09 [place] [address] [address] Apr, [facility] [address] [id number] [address] [place] [address] Mar, Diabetes mellitus without me ntion of complication, type II or unspecified type, uncontrolled 250.02 and Anxiety 300.00 [facility] [address] [id number] [address] [place] [address] Mar, [facility] [address] [id number] [address] [place] [address] Feb, [facility] [address] [id number] [address] [place] [address] Feb, [facility] [address] [id number] [address] [place] [address] Feb, [facility] [address] [id number] [address] [place] [address] Jan, [facility] [address] [id number] [address] [place] [address] Jan, [facility] [address] [id number] [address] [place] [address] Jan, [facility] [address] [id number] [address] [place] [address] Jan, [facility] [address] [id number] [address] [place] [address] December, [facility] [address] [id number] [address] [place] [id number] December, Dental examination V72.2 [facility] [address] [id number] [address] [place] [address] December, Tooth pain 525.9 [facility] [address] [id number] [address] [place] [address] December, [facility] [address] [id number] [address] [place] [address] Nov, [facility] [address] [id number] [address] [place] [address], [place] [address] Nov, [facility] [address] [id number] [address] [place] [address], [place] [address] Oct, [facility] [address] [id number] [address] [place] [address], [place] [address] Oct, [facility] [address] [id number] [address] [place] [address], [place] [address] Sep, [facility] [address] [id number] [address] [place] [address], [place] [address] Sep, [facility] [address] [id number] [address] [place] [address], [place] [address] Sep, [facility] [address] [id number] [address] [place] [address], [place] [address] Sep, [facility] [address] [id number] [address] [place] [address], [place] [address] Aug, [facility] [address] [id number] [address] [place] [address], [place] [address] Aug, [facility] [address] [id number] [address] [place] [address], [place] [address] Aug, [facility] [address] [id number] [address] [place] [address], [place] [address] Aug, [facility] [address] [id number] [address] [place] [address], [place] [address] Jul, [facility] [address] [id number] [address] [place] [address], [place] [address] Jul, [facility] [address] [id number] [address] [place] [address], [place] [address] Jun, [facility] [address] [id number] [address] [place] [address], [place] [address] Jun, [facility] [address] [id number] [address] [place] [address], [place] [address] May, [facility] [address] [id number] [address] [place] [address], [place] [address] May, [facility] [address] [id number] [address] [place] [address], [place] [address] May, [facility] [address] [id number] [address] [place] [address], [place] [address] May, [facility] [address] [id number] [address] [place] [address], [place] [address] May, [facility] [address] [id number] [address] [place] [address], [place] [address] May, [facility] [address] [id number] [address] [place] [address], [place] [address] Apr, [facility] [address] [id number] [address] [place] [address], [place] [address] Apr, [facility] [address] [id number] [address] [place] [address], [place] [address] Apr, [facility] [address] [id number] [address] [place] [address], [place] [address] Apr, [facility] [address] [id number] [address] [place] [address], [place] [address] Apr, [facility] [address] [id number] [address] [place] [address], [place] [address] Apr, [facility] [address] [id number] [address] [place] [address], [place] [address] Mar, [facility] [address] [id number] [address] [place] [address], [place] [address] Mar, [facility] [address] [id number] [address] [place] [address], [place] [address] Mar, [facility] [address] [id number] [address] [place] [address], [place] [address] Mar, [facility] [address] [id number] [facility] [place] [address] Feb, [facility] [address] [id number] [facility] [place] [address] Feb, [facility] [address] [id number] [facility] [place] [address] Feb, [facility] [address] [id number] [facility] [place] [address] Feb, [facility] [address] [id number] [facility] [place] [address] Jan, [facility] [address] [id number] [address] [place] [address], [place] [address] Jan, [facility] [address] [id number] [address] [place] [address], [place] [address] Jan, [facility] [address] [id number] [address] [place] [address], [place] [address] Jan, [facility] [address] [id number] [address] [place] [address], [place] [address] Jan, [facility] [address] [id number] [address] [place] [address], [place] [address] Jan, [facility] [address] [id number] [address] [place] [address], [place] [address] Jan, [facility] [address] [id number] [address] [place] [address], [place] [address] Jan, [facility] [address] [id number] [address] [place] [address], [place] [address] Jan, [facility] [address] [id number] [address] [place] [address], [place] [address] Jan, [facility] [address] [id number] [address] [place] [address], [place] [address] December, [facility] [address] [id number] [address] [place] [address], [place] [address] December, [facility] [address] [id number] [facility] [place] [address] December, [facility] [address] [id number] [address] [place] [address], [place] [address] December, [facility] [address] [id number] [address] [place] [address], [place] [address] December, [facility] [address] [id number] [address] [place] [address], [place] [address] Nov, [facility] [address] [id number] [address] [place] [address], [place] [address] Nov, [facility] [address] [id number] [address] [place] [address], [place] [address] Nov, [facility] [address] [id number] [address] [place] [address], [place] [address] Oct, [facility] [address] [id number] [address] [place] [address], [place] [address] Oct, [facility] [address] [id number] [address] [place] [address], [place] [address] Oct, [facility] [address] [id number] [address] [place] [address], [place] [address] Oct, [facility] [address] [id number] [address] [place] [address], [place] [address] Oct, [facility] [address] [id number] [address] [place] [address], [place] [address] Oct, [facility] [address] [id number] [address] [place] [address], [place] [address] Oct, [facility] [address] [id number] [address] [place] [address], [place] [address] Oct, [facility] [address] [id number] [address] [place] [address], [place] [address] Oct, [facility] [address] [id number] [address] [place] [address], [place] [address] Sep, [facility] [address] [id number] [address] [place] [address], [place] [address] Sep, [facility] [address] [id number] [address] [place] [address], [place] [address] Aug, [facility] [address] [id number] [address] [place] [address], [place] [address] Aug, [facility] [address] [id number] [address] [place] [address], [place] [address] Aug, [facility] [address] [id number] [address] [place] [address], [place] [address] Aug, [facility] [address] [id number] [address] [place] [address], [place] [address] Jul, [facility] [address] [id number] [address] [place] [address], [place] [address] Jul, [facility] [address] [id number] [address] [place] [address], [place] [address] Jul, [facility] [address] [id number] [address] [place] [address], [place] [address] Jul, [facility] [address] [id number] [address] [place] [address], [place] [address] Jun, [facility] [address] [id number] [address] [place] [address], [place] [address] Jun, [facility] [address] [id number] [address] [place] [address], [place] [address] Jun, [facility] [address] [id number] [address] [place] [address], [place] [address] Jun, [facility] [address] [id number] [address] [place] [address], [place] [address] May, [facility] [address] [id number] [address] [place] [address], [place] [address] May, [facility] [address] [id number] [address] [place] [address], [place] [address] May, [facility] [address] [id number] [address] [place] [address], [place] [address] May, [facility] [address] [id number] [address] [place] [address], [place] [address] May, [facility] [address] [id number] [address] [place] [address], [place] [address] May, [facility] [address] [id number] [address] [place] [address], [place] [address] Apr, [facility] [address] [id number] [address] [place] [address], [place] [address] Mar, [facility] [address] [id number] [address] [place] [address], [place] [address] Mar, [facility] [address] [id number] [address] [place] [address], [place] [address] Mar, [facility] [address] [id number] [address] [place] [address], [place] [address] Feb, [facility] [address] [id number] [address] [place] [address], [place] [address] Feb, [facility] [address] [id number] [address] [place] [address], [place] [address] Feb, [facility] [address] [id number] [address] [place] [address], [place] [address] Jan, [facility] [address] [id number] [address] [place] [address], [place] [address] Jan, [facility] [address] [id number] [address] [place] [address], [place] [address] December, [facility] [address] [id number] [address] [place] [address], [place] [address] December, [facility] [address] [id number] [address] [place] [address], [place] [address] December, [facility] [address] [id number] [address] [place] [address], [place] [address] 29 Nov, 2012 [facility] [address] [id number] [address] [place] [address], [place] [address] 24 Nov, 2012 [facility] [address] [id number] [address] [place] [address], [place] [address] Nov, [facility] [address] [id number] [address] [place] [address], [place] [address] 2012 [facility] [address] [id number] [address] [place] [address], [place] [address] 15 Nov, 2012 [facility] [address] [id number] [address] [place] [address], [place] [address] 05 Nov, 2012 [facility] [address] [id number] [address] [place] [address], [place] [address] Oct, [facility] [address] [id number] [address] [place] [address], [place] [address] 14 Oct, 2012 [facility] [address] [id number] [address] [place] [address], [place] [address] Oct, [facility] [address] [id number] [address] [place] [address], [place] [address] Oct, [facility] [address] [id number] [address] [place] [address], [place] [address] 28 Sep, 2012 [facility] [address] [id number] [address] [place] [address], [place] [address] Sep, [facility] [address] [id number] [address] [place] [address], [place] [address] 18 Sep, 2012 [facility] [address] [id number] [address] [place] [address], [place] [address] Sep, [facility] [address] [id number] [address] [place] [address], [place] [address] Sep, [facility] [address] [id number] [address] [place] [phone] Aug, [facility] [address] [id number] [address] [place] [phone] Aug, [facility] [address] [id number] [address] [place] [phone] Aug, [facility] [address] [id number] [address] [place] [phone] Aug, [facility] [address] [id number] [address] [place] [phone] Aug, [facility] [address] [id number] [address] [place] [phone] Aug, [facility] [address] [id number] [address] [place] [phone] May, [facility] [address] [id number] [address] [place] [phone] May, IMMUNIZATIONS No Known Immunizations SOCIAL HISTORY Never Assessed REASON FOR VISIT EMR-[facility] [place] OF CARE VITAL SIGNS MEDICATIONS Unknown Medications RESULTS No Results PROCEDURES No Known procedures INSTRUCTIONS MEDICATIONS ADMINISTERED No Known Medications MEDICAL (GENERAL) HISTORY Type Description Date Medical History type I diabetes Medical History hx of MRSA infections Medical History depression Medical History anxiety Surgical History I & D-MRSA Hospitalization History MRSA 2003
--- OUTSIDE RECORDS SUMMARY | 2020-01-16 00:24 | XMS REPORT ---
Author Author Darien Guerra Doctor Organization [facility] Address Unknown Phone Unavailable Care Team Providers Care Marketing Services Manager Name Role Phone Migration, Doctor Unavailable Unavailable PROBLEMS Type Condition ICD9-CM Code [id number] Code Onset Dates Condition S tatus SNOMED Code Problem Diabetes type 1, controlled E10.9 Ac tive 20332419 Problem Type 2 diabetes mellitus with hyperglycemia E11.65 Active [id number] Problem Other chronic pain G89.29 Active 8 1566910 Problem Schizoaffective disorder, depressive type F25.1 Active 85267872 Problem Type 1 diabetes mellitus with hyperglycemia E10.65 Active [id number] Problem Type 1 diabetes mellitus with diabetic polyneuropathy E10.42 Active 60215366 Problem Mood disorder F39 Active 021492 05 Problem Uncontrolled type 1 diabetes mellitus without complication E10.9 Active [id number] ALLERGIES No Information ENCOUNTERS Encounter Location Date Diagnosis [facility] [address] [id number] [address] [place] [address] December, [facility] [address] [id number] [address] [place] [address] Nov, [facility] [address] [id number] [address] [place] [address] 14 Nov, 2016 Uncontrolled type 1 diabetes mellitus without complication E10.9 [facility] [address] [id number] [address] [place] [address] 13 Nov, 2016 Impingement syndrome, should er, right M75.41 and Adhesive capsulitis of right shoulder M75.01 [facility] [address] [id number] [address] [place] [address] 03 Nov, 2016 Uncontrolled type 1 diabetes mellitus without complication E10.9 [facility] [address] [id number] [address] [place] [address] Oct, Uncontrolled type 1 diabetes mellitus without complication E10.9 ; Other chronic pain G89.29 ; Pain in right shoulder M25.511 and Schizoaffective disorder, depressive type F25.1 [facility] [address] [id number] [address] [place] [address] May, Mood disorder F39 and Contro lled diabetes mellitus type 1 without complications E10.9 [facility] [address] [id number] [address] [place] [address] May, [facility] [address] [id number] [address] [place] [address] May, [facility] [address] [id number] [address] [place] [address] Apr, Mood disorder F39 ; 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 and Type 1 diabetes mellitus with hyperglycemia E10.65 [facility] [address] [id number] [address] [place] [address] Apr, Mood disorder F39 [facility] [address] [id number] [address] [place] [address] Mar, [facility] [address] [id number] [address] [place] [address] Feb, [facility] [address] [id number] [address] [place] [address] Jan, [facility] [address] [id number] [address] [place] [address] Jan, [facility] [address] [id number] [address] [place] [address] Jan, [facility] [address] [id number] [address] [place] [address] December, [facility] [address] [facility] [id number] [address] [place] [address] December, 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 and Controlled type 1 diabetes mellitus with diabetic neuropathy, with long-term current use of insulin E10.40 [facility] [address] [facility] [address] [facility] [id number] [address] [place] [address] December, Schizo-affective schizophren ia F25.0 [facility] [address] [facility] [address] [facility] [id number] [address] [place] [address] Nov, [facility] [address] [facility] [address] [facility] [id number] [address] [place] [address] Nov, Anxiety disorder, unspecifie d F41.9 and Schizo-affective schizophrenia F25.0 [facility] [address] [facility] [address] [facility] [id number] [address] [place] [address] Nov, Schizo-affective schizophren ia F25.0 [facility] [address] [facility] [facility] [id number] [address] [place] [address] Oct, [facility] [address] [id number] [address] [place] [address] Sep, [facility] [address] [id number] [address] [place] [address] Sep, [facility] [address] [facility] [address] [facility] [id number] [address] [place] [address] Sep, [facility] [address] [id number] [address] [place] [address] Aug, [facility] [address] [id number] [address] [place] [address] Aug, [facility] [address] [id number] [address] [place] [address] Jul, [facility] [address] [id number] [address] [place] [address] Jul, Diabetes type 1, controlled E10.9 [facility] [address] [id number] [address] [place] [address] Jun, Diabetes mellitus without me ntion of complication, type II or unspecified type, uncontrolled 250.02 [facility] [address] [id number] [address] [place] [address] Jun, Diabetes type 1, controlled E10.9 [address] [address] May, Diabetes mellitus without me ntion of complication, type II or unspecified type, uncontrolled 250.02 [address] [place] [address] [address] May, Anxiety 300.00 [place] [address] [address] May, Diabetes type 1, controlled E10.9 ; Schizo-affective schizophrenia F25.0 ; Mood disorder F39 and Bipolar 1 disorder F31.9 [address] [address] [address] May, [place] [address] [address] May, Anxiety F41.9 and Depression F32.9 [place] [address] [address] Apr, Diabetes mellitus without me ntion of complication, type II or unspecified type, uncontrolled 250.02 [address] [place] [address] [address] Apr, Anxiety 300.00 and Diabetes mellitus without mention of complication, type II or unspecified type, uncontrolled 250.02 [address] [address] [address] Apr, [place] [address] [address] Apr, Anxiety 300.00 and Depressio n 311 [address] [address] Apr, Major depression, recurrent 296.30 ; Anxiety, generalized 300.02 and No condition on [place] II V71.09 [place] [address] [address] Apr, [facility] [address] [id number] [address] [place] [address] Mar, Diabetes mellitus without me ntion of complication, type II or unspecified type, uncontrolled 250.02 and Anxiety 300.00 [facility] [address] [id number] [address] [place] [address] Mar, [facility] [address] [id number] [address] [place] [address] Feb, [facility] [address] [id number] [address] [place] [address] Feb, [facility] [address] [id number] [address] [place] [address] Feb, [facility] [address] [id number] [address] [place] [address] Jan, [facility] [address] [id number] [address] [place] [address] Jan, [facility] [address] [id number] [address] [place] [address] Jan, [facility] [address] [id number] [address] [place] [address] Jan, [facility] [address] [id number] [address] [place] [address] December, [facility] [address] [id number] [address] [place] [id number] December, Dental examination V72.2 [facility] [address] [id number] [address] [place] [address] December, Tooth pain 525.9 [facility] [address] [id number] [address] [place] [address] December, [facility] [address] [id number] [address] [place] [address] Nov, [facility] [address] [id number] [address] [place] [address], [place] [address] Nov, [facility] [address] [id number] [address] [place] [address], [place] [address] Oct, [facility] [address] [id number] [address] [place] [address], [place] [address] Oct, [facility] [address] [id number] [address] [place] [address], [place] [address] Sep, [facility] [address] [id number] [address] [place] [address], [place] [address] Sep, [facility] [address] [id number] [address] [place] [address], [place] [address] Sep, [facility] [address] [id number] [address] [place] [address], [place] [address] Sep, [facility] [address] [id number] [address] [place] [address], [place] [address] Aug, [facility] [address] [id number] [address] [place] [address], [place] [address] Aug, [facility] [address] [id number] [address] [place] [address], [place] [address] Aug, [facility] [address] [id number] [address] [place] [address], [place] [address] Aug, [facility] [address] [id number] [address] [place] [address], [place] [address] Jul, [facility] [address] [id number] [address] [place] [address], [place] [address] Jul, [facility] [address] [id number] [address] [place] [address], [place] [address] Jun, [facility] [address] [id number] [address] [place] [address], [place] [address] Jun, [facility] [address] [id number] [address] [place] [address], [place] [address] May, [facility] [address] [id number] [address] [place] [address], [place] [address] May, [facility] [address] [id number] [address] [place] [address], [place] [address] May, [facility] [address] [id number] [address] [place] [address], [place] [address] May, [facility] [address] [id number] [address] [place] [address], [place] [address] May, [facility] [address] [id number] [address] [place] [address], [place] [address] May, [facility] [address] [id number] [address] [place] [address], [place] [address] Apr, [facility] [address] [id number] [address] [place] [address], [place] [address] Apr, [facility] [address] [id number] [address] [place] [address], [place] [address] Apr, [facility] [address] [id number] [address] [place] [address], [place] [address] Apr, [facility] [address] [id number] [address] [place] [address], [place] [address] Apr, [facility] [address] [id number] [address] [place] [address], [place] [address] Apr, [facility] [address] [id number] [address] [place] [address], [place] [address] Mar, [facility] [address] [id number] [address] [place] [address], [place] [address] Mar, [facility] [address] [id number] [address] [place] [address], [place] [address] Mar, [facility] [address] [id number] [address] [place] [address], [place] [address] Mar, [facility] [address] [id number] [facility] [place] [address] Feb, [facility] [address] [id number] [facility] [place] [address] Feb, [facility] [address] [id number] [facility] [place] [address] Feb, [facility] [address] [id number] [facility] [place] [address] Feb, [facility] [address] [id number] [facility] [place] [address] Jan, [facility] [address] [id number] [address] [place] [address], [place] [address] Jan, [facility] [address] [id number] [address] [place] [address], [place] [address] Jan, [facility] [address] [id number] [address] [place] [address], [place] [address] Jan, [facility] [address] [id number] [address] [place] [address], [place] [address] Jan, [facility] [address] [id number] [address] [place] [address], [place] [address] Jan, [facility] [address] [id number] [address] [place] [address], [place] [address] Jan, [facility] [address] [id number] [address] [place] [address], [place] [address] Jan, [facility] [address] [id number] [address] [place] [address], [place] [address] Jan, [facility] [address] [id number] [address] [place] [address], [place] [address] Jan, [facility] [address] [id number] [address] [place] [address], [place] [address] December, [facility] [address] [id number] [address] [place] [address], [place] [address] December, [facility] [address] [id number] [facility] [place] [address] December, [facility] [address] [id number] [address] [place] [address], [place] [address] December, [facility] [address] [id number] [address] [place] [address], [place] [address] December, [facility] [address] [id number] [address] [place] [address], [place] [address] Nov, [facility] [address] [id number] [address] [place] [address], [place] [address] Nov, [facility] [address] [id number] [address] [place] [address], [place] [address] Nov, [facility] [address] [id number] [address] [place] [address], [place] [address] Oct, [facility] [address] [id number] [address] [place] [address], [place] [address] Oct, [facility] [address] [id number] [address] [place] [address], [place] [address] Oct, [facility] [address] [id number] [address] [place] [address], [place] [address] Oct, [facility] [address] [id number] [address] [place] [address], [place] [address] Oct, [facility] [address] [id number] [address] [place] [address], [place] [address] Oct, [facility] [address] [id number] [address] [place] [address], [place] [address] Oct, [facility] [address] [id number] [address] [place] [address], [place] [address] Oct, [facility] [address] [id number] [address] [place] [address], [place] [address] Oct, [facility] [address] [id number] [address] [place] [address], [place] [address] Sep, [facility] [address] [id number] [address] [place] [address], [place] [address] Sep, [facility] [address] [id number] [address] [place] [address], [place] [address] Aug, [facility] [address] [id number] [address] [place] [address], [place] [address] Aug, [facility] [address] [id number] [address] [place] [address], [place] [address] Aug, [facility] [address] [id number] [address] [place] [address], [place] [address] Aug, [facility] [address] [id number] [address] [place] [address], [place] [address] Jul, [facility] [address] [id number] [address] [place] [address], [place] [address] Jul, [facility] [address] [id number] [address] [place] [address], [place] [address] Jul, [facility] [address] [id number] [address] [place] [address], [place] [address] Jul, [facility] [address] [id number] [address] [place] [address], [place] [address] Jun, [facility] [address] [id number] [address] [place] [address], [place] [address] Jun, [facility] [address] [id number] [address] [place] [address], [place] [address] Jun, [facility] [address] [id number] [address] [place] [address], [place] [address] Jun, [facility] [address] [id number] [address] [place] [address], [place] [address] May, [facility] [address] [id number] [address] [place] [address], [place] [address] May, [facility] [address] [id number] [address] [place] [address], [place] [address] May, [facility] [address] [id number] [address] [place] [address], [place] [address] May, [facility] [address] [id number] [address] [place] [address], [place] [address] May, [facility] [address] [id number] [address] [place] [address], [place] [address] May, [facility] [address] [id number] [address] [place] [address], [place] [address] Apr, [facility] [address] [id number] [address] [place] [address], [place] [address] Mar, [facility] [address] [id number] [address] [place] [address], [place] [address] Mar, [facility] [address] [id number] [address] [place] [address], [place] [address] Mar, [facility] [address] [id number] [address] [place] [address], [place] [address] Feb, [facility] [address] [id number] [address] [place] [address], [place] [address] Feb, [facility] [address] [id number] [address] [place] [address], [place] [address] Feb, [facility] [address] [id number] [address] [place] [address], [place] [address] Jan, [facility] [address] [id number] [address] [place] [address], [place] [address] Jan, [facility] [address] [id number] [address] [place] [address], [place] [address] December, [facility] [address] [id number] [address] [place] [address], [place] [address] December, [facility] [address] [id number] [address] [place] [address], [place] [address] December, [facility] [address] [id number] [address] [place] [address], [place] [address] 29 Nov, 2012 [facility] [address] [id number] [address] [place] [address], [place] [address] 24 Nov, 2012 [facility] [address] [id number] [address] [place] [address], [place] [address] Nov, [facility] [address] [id number] [address] [place] [address], [place] [id number] 2012 [facility] [address] [id number] [address] [place] [address], [place] [phone] 15 Nov, 2012 [facility] [address] [id number] [address] [place] [address], [place] [phone] 05 Nov, 2012 [facility] [address] [id number] [address] [place] [address], [place] [address] Oct, [facility] [address] [id number] [address] [place] [address], [place] [address] 14 Oct, 2012 [facility] [address] [id number] [address] [place] [address], [place] [address] Oct, [facility] [address] [id number] [address] [place] [address], [place] [phone] Oct, [facility] [address] [id number] [address] [place] [address], [place] [phone] 28 Sep, 2012 [facility] [address] [id number] [address] [place] [address], [place] [address] Sep, [facility] [address] [id number] [address] [place] [address], [place] [address] 18 Sep, 2012 [facility] [address] [id number] [address] [place] [address], [place] [phone] Sep, [facility] [address] [id number] [address] [place] [address], [place] [address] Sep, [facility] [address] [id number] [address] [place] [phone] Aug, [facility] [address] [id number] [address] [place] [phone] Aug, [facility] [address] [id number] [address] [place] [phone] Aug, [facility] [address] [id number] [address] [place] [phone] Aug, [facility] [address] [id number] [address] [place] [phone] Aug, [facility] [address] [id number] [address] [place] [phone] Aug, [facility] [address] [id number] [address] [place] [phone] May, [facility] [address] [id number] [address] [place] [id number] May, IMMUNIZATIONS No Known Immunizations SOCIAL HISTORY [...]
--- OUTSIDE RECORDS SUMMARY | 2020-01-16 00:24 | XMS REPORT ---
Author Author Darien Guerra Doctor Organization [facility] Address Unknown Phone Unavailable Care Team Providers Care Manager Medical Device Name Role Phone Migration, Doctor Unavailable Unavailable PROBLEMS Type Condition ICD9-CM Code VER48-IN Code Onset Dates Condition S tatus SNOMED Code Problem Diabetes type 1, controlled E10.9 Ac tive 60359487 Problem Type 2 diabetes mellitus with hyperglycemia E11.65 Active [id number] Problem Other chronic pain G89.29 Active 8 4010361 Problem Schizoaffective disorder, depressive type F25.1 Active 56117426 Problem Type 1 diabetes mellitus with hyperglycemia E10.65 Active 367950225992275 Problem Type 1 diabetes mellitus with diabetic polyneuropathy E10.42 Active 15169612 Problem Mood disorder F39 Active 536463 05 Problem Uncontrolled type 1 diabetes mellitus without complication E10.9 Active [id number] ALLERGIES No Information ENCOUNTERS Encounter Location Date Diagnosis [facility] [address] [id number] [address] [place] [address] December, [facility] [address] [id number] [address] [place] [address] Nov, [facility] [address] [id number] [address] [place] [address] 14 Nov, 2016 Uncontrolled type 1 diabetes mellitus without complication E10.9 [facility] [address] [id number] [address] [place] [address] 13 Nov, 2016 Impingement syndrome, should er, right M75.41 and Adhesive capsulitis of right shoulder M75.01 [facility] [address] [id number] [address] [place] [address] 03 Nov, 2016 Uncontrolled type 1 diabetes mellitus without complication E10.9 [facility] [address] [id number] [address] [place] [address] Oct, Uncontrolled type 1 diabetes mellitus without complication E10.9 ; Other chronic pain G89.29 ; Pain in right shoulder M25.511 and Schizoaffective disorder, depressive type F25.1 [facility] [address] [id number] [address] [place] [address] May, Mood disorder F39 and Contro lled diabetes mellitus type [address] [facility] [address] [id number] [address] [place] [address] May, [facility] [address] [id number] [address] [place] [address] May, [facility] [address] [id number] [address] [place] [address] Apr, Mood disorder F39 ; 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 and Type 1 diabetes mellitus with hyperglycemia E10.65 [facility] [address] [id number] [address] [place] [address] Apr, Mood disorder F39 [facility] [address] [id number] [address] [place] [address] Mar, [facility] [address] [id number] [address] [place] [address] Feb, [facility] [address] [id number] [address] [place] [address] Jan, [facility] [address] [id number] [address] [place] [address] Jan, [facility] [address] [id number] [address] [place] [address] Jan, [facility] [address] [id number] [address] [place] [address] December, [facility] [address] 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 [address] [facility] [id number] [address] [place] [address] December, Schizo-affective schizophren ia F25.0 [facility] [address] [facility] [id number] [address] [place] [address] Nov, [facility] [address] [facility] [id number] [address] [place] [address] Nov, Anxiety disorder, unspecifie d F41.9 and Schizo-affective schizophrenia F25.0 [facility] [address] [facility] [id number] [address] [place] [address] Nov, Schizo-affective schizophren ia F25.0 [facility] [address] [facility] [id number] [address] [place] [address] Oct, [facility] [address] [id number] [address] [place] [address] Sep, [facility] [address] [id number] [address] [place] [address] Sep, [facility] [address] [facility] [id number] [address] [place] [address] Sep, [facility] [address] [id number] [address] [place] [address] Aug, [facility] [address] [id number] [address] [place] [address] Aug, [facility] [address] [id number] [address] [place] [address] Jul, [facility] [address] [id number] [address] [place] [address] Jul, Diabetes type 1, controlled E10.9 [facility] [address] [id number] [address] [place] [address] Jun, Diabetes mellitus without me ntion of complication, type II or unspecified type, uncontrolled 250.02 [facility] [address] [id number] [address] [place] [address] Jun, Diabetes type 1, controlled E10.9 [place] [address] [address] May, Diabetes mellitus without me ntion of complication, type II or unspecified type, uncontrolled 250.02 [place] [address] [address] May, Anxiety 300.00 [place] [address] [address] May, Diabetes type 1, controlled E10.9 ; Schizo-affective schizophrenia F25.0 ; Mood disorder F39 and Bipolar 1 disorder F31.9 [place] [address] [address] May, [place] [address] [address] May, Anxiety F41.9 and Depression F32.9 [place] [address] [address] Apr, Diabetes mellitus without me ntion of complication, type II or unspecified type, uncontrolled 250.02 [place] [address] [address] Apr, Anxiety 300.00 and Diabetes mellitus without mention of complication, type II or unspecified type, uncontrolled 250.02 [place] [address] [address] Apr, [place] [address] [address] Apr, Anxiety 300.00 and Depressio n 311 [place] [address] [address] Apr, Major depression, recurrent 296.30 ; Anxiety, generalized 300.02 and No condition on Wells II V71.09 [place] [address] [address] Apr, [facility] [address] [id number] [address] [place] [address] Mar, Diabetes mellitus without me ntion of complication, type II or unspecified type, uncontrolled 250.[address] [facility] [address] [id number] [address] [place] [address] Mar, [facility] [address] [id number] [address] [place] [address] Feb, [facility] [address] [id number] [address] [place] [address] Feb, [facility] [address] [id number] [address] [place] [address] Feb, [facility] [address] [id number] [address] [place] [address] Jan, [facility] [address] [id number] [address] [place] [address] Jan, [facility] [address] [id number] [address] [place] [address] Jan, [facility] [address] [id number] [address] [place] [address] Jan, [facility] [address] [id number] [address] [place] [address] December, [facility] [address] [id number] [address] [place] [id number] December, Dental examination V72.2 [facility] [address] [id number] [address] [place] [address] December, Tooth pain 525.9 [facility] [address] [id number] [address] [place] [address] December, [facility] [address] [id number] [address] [place] [address] Nov, [facility] [address] [id number] [address] [place] [address], [place] [address] Nov, [facility] [address] [id number] [address] [place] [address], [place] [address] Oct, [facility] [address] [id number] [address] [place] [address], [place] [address] Oct, [facility] [address] [id number] [address] [place] [address], [place] [address] Sep, [facility] [address] [id number] [address] [place] [address], [place] [address] Sep, [facility] [address] [id number] [address] [place] [address], [place] [address] Sep, [facility] [address] [id number] [address] [place] [address], [place] [address] Sep, [facility] [address] [id number] [address] [place] [address], [place] [address] Aug, [facility] [address] [id number] [address] [place] [address], [place] [address] Aug, [facility] [address] [id number] [address] [place] [address], [place] [address] Aug, [facility] [address] [id number] [address] [place] [address], [place] [address] Aug, [facility] [address] [id number] [address] [place] [address], [place] [address] Jul, [facility] [address] [id number] [address] [place] [address], [place] [address] Jul, [facility] [address] [id number] [address] [place] [address], [place] [address] Jun, [facility] [address] [id number] [address] [place] [address], [place] [address] Jun, [facility] [address] [id number] [address] [place] [address], [place] [address] May, [facility] [address] [id number] [address] [place] [address], [place] [address] May, [facility] [address] [id number] [address] [place] [address], [place] [address] May, [facility] [address] [id number] [address] [place] [address], [place] [address] May, [facility] [address] [id number] [address] [place] [address], [place] [address] May, [facility] [address] [id number] [address] [place] [address], [place] [address] May, [facility] [address] [id number] [address] [place] [address], [place] [address] Apr, [facility] [address] [id number] [address] [place] [address], [place] [address] Apr, [facility] [address] [id number] [address] [place] [address], [place] [address] Apr, [facility] [address] [id number] [address] [place] [address], [place] [address] Apr, [facility] [address] [id number] [address] [place] [address], [place] [address] Apr, [facility] [address] [id number] [address] [place] [address], [place] [address] Apr, [facility] [address] [id number] [address] [place] [address], [place] [address] Mar, [facility] [address] [id number] [address] [place] [address], [place] [address] Mar, [facility] [address] [id number] [address] [place] [address], [place] [address] Mar, [facility] [address] [id number] [address] [place] [address], [place] [address] Mar, [facility] [address] [id number] [facility] [place] [address] Feb, [facility] [address] [id number] [facility] [place] [address] Feb, [facility] [address] [id number] [facility] [place] [address] Feb, [facility] [address] [id number] [facility] [place] [address] Feb, [facility] [address] [id number] [facility] [place] [address] Jan, [facility] [address] [id number] [address] [place] [address], [place] [address] Jan, [facility] [address] [id number] [address] [place] [address], [place] [address] Jan, [facility] [address] [id number] [address] [place] [address], [place] [address] Jan, [facility] [address] [id number] [address] [place] [address], [place] [address] Jan, [facility] [address] [id number] [address] [place] [address], [place] [address] Jan, [facility] [address] [id number] [address] [place] [address], [place] [address] Jan, [facility] [address] [id number] [address] [place] [address], [place] [address] Jan, [facility] [address] [id number] [address] [place] [address], [place] [address] Jan, [facility] [address] [id number] [address] [place] [address], [place] [address] Jan, [facility] [address] [id number] [address] [place] [address], [place] [address] December, [facility] [address] [id number] [address] [place] [address], [place] [address] December, [facility] [address] [id number] [facility] [place] [address] December, [facility] [address] [id number] [address] [place] [address], [place] [address] December, [facility] [address] [id number] [address] [place] [address], [place] [address] December, [facility] [address] [id number] [address] [place] [address], [place] [address] Nov, [facility] [address] [id number] [address] [place] [address], [place] [address] Nov, [facility] [address] [id number] [address] [place] [address], [place] [address] Nov, [facility] [address] [id number] [address] [place] [address], [place] [address] Oct, [facility] [address] [id number] [address] [place] [address], [place] [address] Oct, [facility] [address] [id number] [address] [place] [address], [place] [address] Oct, [facility] [address] [id number] [address] [place] [address], [place] [address] Oct, [facility] [address] [id number] [address] [place] [address], [place] [address] Oct, [facility] [address] [id number] [address] [place] [address], [place] [address] Oct, [facility] [address] [id number] [address] [place] [address], [place] [address] Oct, [facility] [address] [id number] [address] [place] [address], [place] [address] Oct, [facility] [address] [id number] [address] [place] [address], [place] [address] Oct, [facility] [address] [id number] [address] [place] [address], [place] [address] Sep, [facility] [address] [id number] [address] [place] [address], [place] [address] Sep, [facility] [address] [id number] [address] [place] [address], [place] [address] Aug, [facility] [address] [id number] [address] [place] [address], [place] [address] Aug, [facility] [address] [id number] [address] [place] [address], [place] [address] Aug, [facility] [address] [id number] [address] [place] [address], [place] [address] Aug, [facility] [address] [id number] [address] [place] [address], [place] [address] Jul, [facility] [address] [id number] [address] [place] [address], [place] [address] Jul, [facility] [address] [id number] [address] [place] [address], [place] [address] Jul, [facility] [address] [id number] [address] [place] [address], [place] [address] Jul, [facility] [address] [id number] [address] [place] [address], [place] [address] Jun, [facility] [address] [id number] [address] [place] [address], [place] [address] Jun, [facility] [address] [id number] [address] [place] [address], [place] [address] Jun, [facility] [address] [id number] [address] [place] [address], [place] [address] Jun, [facility] [address] [id number] [address] [place] [address], [place] [address] May, [facility] [address] [id number] [address] [place] [address], [place] [address] May, [facility] [address] [id number] [address] [place] [address], [place] [address] May, [facility] [address] [id number] [address] [place] [address], [place] [address] May, [facility] [address] [id number] [address] [place] [address], [place] [address] May, [facility] [address] [id number] [address] [place] [address], [place] [address] May, [facility] [address] [id number] [address] [place] [address], [place] [address] Apr, [facility] [address] [id number] [address] [place] [address], [place] [address] Mar, [facility] [address] [id number] [address] [place] [address], [place] [address] Mar, [facility] [address] [id number] [address] [place] [address], [place] [address] Mar, [facility] [address] [id number] [address] [place] [address], [place] [address] Feb, [facility] [address] [id number] [address] [place] [address], [place] [address] Feb, [facility] [address] [id number] [address] [place] [address], [place] [address] Feb, [facility] [address] [id number] [address] [place] [address], [place] [address] Jan, [facility] [address] [id number] [address] [place] [address], [place] [address] Jan, [facility] [address] [id number] [address] [place] [address], [place] [address] December, [facility] [address] [id number] [address] [place] [address], [place] [address] December, [facility] [address] [id number] [address] [place] [address], [place] [address] December, [facility] [address] [id number] [address] [place] [address], [place] [address] 29 Nov, 2012 [facility] [address] [id number] [address] [place] [address], [place] [address] 24 Nov, 2012 [facility] [address] [id number] [address] [place] [address], [place] [address] Nov, [facility] [address] [id number] [address] [place] [address], [place] [address] 2012 [facility] [address] [id number] [address] [place] [address], [place] [id number] 15 Nov, 2012 [facility] [address] [id number] [address] [place] [address], [place] [id number] 05 Nov, 2012 [facility] [address] [id number] [address] [place] [address], [place] [address] Oct, [facility] [address] [id number] [address] [place] [address], [place] [id number] 14 Oct, 2012 [facility] [address] [id number] [address] [place] [address], [place] [address] Oct, [facility] [address] [id number] [address] [place] [address], [place] [id number] Oct, [facility] [address] [id number] [address] [place] [address], [place] [id number] 28 Sep, 2012 [facility] [address] [id number] [address] [place] [address], [place] [id number] Sep, [facility] [address] [id number] [address] [place] [address], [place] [id number] 18 Sep, 2012 [facility] [address] [id number] [address] [place] [address], [place] [id number] Sep, [facility] [address] [id number] [address] [place] [address], [place] [address] Sep, [facility] [address] [id number] [address] [place] [id number] Aug, [facility] [address] [id number] [address] [place] [id number] Aug, [facility] [address] [id number] [address] [place] [phone] Aug, [facility] [address] [id number] [address] [place] [phone] Aug, [facility] [address] [id number] [address] [place] [phone] Aug, [facility] [address] [id number] [address] [place] [phone] Aug, [facility] [address] [id number] [address] [place] [phone] May, [facility] [address] [id number] [address] [place] [phone] May, IMMUNIZATIONS No Known Immunizations SOCIAL HISTORY Never Assessed REASON FOR VISIT EMR-[facility] [place], [place] PLAN OF CARE VITAL SIGNS MEDICATIONS Unknown Medications RESULTS No Results PROCEDURES No Known procedures INSTRUCTIONS MEDICATIONS ADMINISTERED No Known Medications MEDICAL (GENERAL) HISTORY Type Description Date Medical History type I diabetes Medical History hx of MRSA infections Medical History depression Medical History anxiety Surgical History I & D-MRSA Hospitalization History MRSA 2003
--- OUTSIDE RECORDS SUMMARY | 2020-01-16 00:24 | XMS REPORT ---
Author Author Darien Guerra Doctor Organization [facility] Address Unknown Phone Unavailable Care Team Providers Care Biomedical Equipment Support Specialist Name Role Phone Migration, Doctor Unavailable Unavailable PROBLEMS Type Condition ICD9-CM Code RAS41-IN Code Onset Dates Condition S tatus SNOMED Code Problem Diabetes type 1, controlled E10.9 Ac tive 06406121 Problem Type 2 diabetes mellitus with hyperglycemia E11.65 Active 586042047831046 Problem Other chronic pain G89.29 Active 8 6494263 Problem Schizoaffective disorder, depressive type F25.1 Active 94614161 Problem Type 1 diabetes mellitus with hyperglycemia E10.65 Active 119154285124468 Problem Type 1 diabetes mellitus with diabetic polyneuropathy E10.42 Active 96342992 Problem Mood disorder F39 Active 091853 05 Problem Uncontrolled type 1 diabetes mellitus without complication E10.9 Active [id number] ALLERGIES No Information ENCOUNTERS Encounter Location Date Diagnosis [facility] [address] [id number] [address] [place] [id number] December, [facility] [address] [id number] [address] [place] [phone] Nov, [facility] [address] [id number] [address] [place] [id number] 14 Nov, 2016 Uncontrolled type 1 diabetes mellitus without complication E10.9 [facility] [address] [id number] [address] [place] [id number] 13 Nov, 2016 Impingement syndrome, should er, right M75.41 and Adhesive capsulitis of right shoulder M75.01 [facility] [address] [id number] [address] [place] [id number] 03 Nov, 2016 Uncontrolled type 1 diabetes mellitus without complication E10.9 [facility] [address] [id number] [address] [place] [phone] Oct, Uncontrolled type 1 diabetes mellitus without complication E10.9 ; Other chronic pain G89.29 ; Pain in right shoulder M25.511 and Schizoaffective disorder, depressive type F25.1 [facility] [address] [id number] [address] [place] [phone] May, Mood disorder F39 and Contro lled diabetes mellitus type 1 without complications E10.9 [facility] [address] [id number] [address] [place] [phone] May, [facility] [address] [id number] [address] [place] [phone] May, [facility] [address] [id number] [address] [place] [phone] Apr, Mood disorder F39 ; 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 and Type 1 diabetes mellitus with hyperglycemia E10.65 [facility] [address] [id number] [address] [place] [phone] Apr, Mood disorder F39 [facility] [address] [id number] [address] [place] [phone] Mar, [facility] [address] [id number] [address] [place] [phone] Feb, [facility] [address] [id number] [address] [place] [phone] Jan, [facility] [address] [id number] [address] [place] [phone] Jan, [facility] [address] [id number] [address] [place] [phone] Jan, [facility] [address] [id number] [address] [place] [phone] December, [facility] [address] [facility] [id number] [address] [place] [phone] December, 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 and Controlled type 1 diabetes mellitus with diabetic neuropathy, with long-term current use of insulin E10.40 [facility] [address] [facility] [id number] [address] [place] [phone] December, Schizo-affective schizophren ia F25.0 [facility] [address] [facility] [id number] [address] [place] [phone] Nov, [facility] [address] [facility] [id number] [address] [place] [phone] Nov, Anxiety disorder, unspecifie d F41.9 and Schizo-affective schizophrenia F25.0 [facility] [address] [facility] [id number] [address] [place] [phone] Nov, Schizo-affective schizophren ia F25.0 [facility] [address] [facility] [id number] [address] [place] [phone] Oct, [facility] [address] [id number] [address] [place] [phone] Sep, [facility] [address] [id number] [address] [place] [phone] Sep, [facility] [address] [facility] [id number] [address] [place] [phone] Sep, [facility] [address] [id number] [address] [place] [phone] Aug, [facility] [address] [id number] [address] [place] [phone] Aug, [facility] [address] [id number] [address] [place] [phone] Jul, [facility] [address] [id number] [address] [place] [phone] Jul, Diabetes type 1, controlled E10.9 [facility] [address] [id number] [address] [place] [phone] Jun, Diabetes mellitus without me ntion of complication, type II or unspecified type, uncontrolled 250.02 [facility] [address] [id number] [address] [place] [address] Jun, Diabetes type 1, controlled E10.9 [place] [address] [address] May, Diabetes mellitus without me ntion of complication, type II or unspecified type, uncontrolled 250.02 [place] [address] [address] May, Anxiety 300.00 [place] [address] [address] May, Diabetes type 1, controlled E10.9 ; Schizo-affective schizophrenia F25.0 ; Mood disorder F39 and Bipolar 1 disorder F31.9 [place] [address] [address] May, [place] [address] [address] May, Anxiety F41.9 and Depression F32.9 [place] [address] [address] Apr, Diabetes mellitus without me ntion of complication, type II or unspecified type, uncontrolled 250.02 [place] [address] [address] Apr, Anxiety 300.00 and Diabetes mellitus without mention of complication, type II or unspecified type, uncontrolled 250.02 [place] [address] [address] Apr, [place] [address] [address] Apr, Anxiety 300.00 and Depressio n 311 [address] [address] Apr, Major depression, recurrent 296.30 ; Anxiety, generalized 300.02 and No condition on [place] II V71.09 [place] [address] [address] Apr, [facility] [address] [id number] [address] [place] [address] Mar, Diabetes mellitus without me ntion of complication, type II or unspecified type, uncontrolled 250.02 and Anxiety 300.00 [facility] [address] [id number] [address] [place] [phone] Mar, [facility] [address] [id number] [address] [place] [phone] Feb, [facility] [address] [id number] [address] [place] [phone] Feb, [facility] [address] [id number] [address] [place] [phone] Feb, [facility] [address] [id number] [address] [place] [phone] Jan, [facility] [address] [id number] [address] [place] [phone] Jan, [facility] [address] [id number] [address] [place] [phone] Jan, [facility] [address] [id number] [address] [place] [phone] Jan, [facility] [address] [id number] [address] [place] [phone] December, [facility] [address] [id number] [address] [place] [id number] December, Dental examination V72.2 [facility] [address] [id number] [address] [place] [phone] December, Tooth pain 525.9 [facility] [address] [id number] [address] [place] [phone] December, [facility] [address] [id number] [address] [place] [phone] Nov, [facility] [address] [id number] [address] [place] [address], [place] [address] Nov, [facility] [address] [id number] [address] [place] [address], [place] [address] Oct, [facility] [address] [id number] [address] [place] [address], [place] [address] Oct, [facility] [address] [id number] [address] [place] [address], [place] [address] Sep, [facility] [address] [id number] [address] [place] [address], [place] [address] Sep, [facility] [address] [id number] [address] [place] [address], [place] [address] Sep, [facility] [address] [id number] [address] [place] [address], [place] [address] Sep, [facility] [address] [id number] [address] [place] [address], [place] [address] Aug, [facility] [address] [id number] [address] [place] [address], [place] [address] Aug, [facility] [address] [id number] [address] [place] [address], [place] [address] Aug, [facility] [address] [id number] [address] [place] [address], [place] [address] Aug, [facility] [address] [id number] [address] [place] [address], [place] [address] Jul, [facility] [address] [id number] [address] [place] [address], [place] [address] Jul, [facility] [address] [id number] [address] [place] [address], [place] [address] Jun, [facility] [address] [id number] [address] [place] [address], [place] [address] Jun, [facility] [address] [id number] [address] [place] [address], [place] [address] May, [facility] [address] [id number] [address] [place] [address], [place] [address] May, [facility] [address] [id number] [address] [place] [address], [place] [address] May, [facility] [address] [id number] [address] [place] [address], [place] [address] May, [facility] [address] [id number] [address] [place] [address], [place] [address] May, [facility] [address] [id number] [address] [place] [address], [place] [address] May, [facility] [address] [id number] [address] [place] [address], [place] [address] Apr, [facility] [address] [id number] [address] [place] [address], [place] [address] Apr, [facility] [address] [id number] [address] [place] [address], [place] [address] Apr, [facility] [address] [id number] [address] [place] [address], [place] [address] Apr, [facility] [address] [id number] [address] [place] [address], [place] [address] Apr, [facility] [address] [id number] [address] [place] [address], [place] [address] Apr, [facility] [address] [id number] [address] [place] [address], [place] [address] Mar, [facility] [address] [id number] [address] [place] [address], [place] [address] Mar, [facility] [address] [id number] [address] [place] [address], [place] [address] Mar, [facility] [address] [id number] [address] [place] [address], [place] [address] Mar, [facility] [address] [id number] [facility] [place] [address] Feb, [facility] [address] [id number] [facility] [place] [address] Feb, [facility] [address] [id number] [facility] [place] [address] Feb, [facility] [address] [id number] [facility] [place] [address] Feb, [facility] [address] [id number] [facility] [place] [address] Jan, [facility] [address] [id number] [address] [place] [address], [place] [address] Jan, [facility] [address] [id number] [address] [place] [address], [place] [address] Jan, [facility] [address] [id number] [address] [place] [address], [place] [address] Jan, [facility] [address] [id number] [address] [place] [address], [place] [address] Jan, [facility] [address] [id number] [address] [place] [address], [place] [address] Jan, [facility] [address] [id number] [address] [place] [address], [place] [address] Jan, [facility] [address] [id number] [address] [place] [address], [place] [address] Jan, [facility] [address] [id number] [address] [place] [address], [place] [address] Jan, [facility] [address] [id number] [address] [place] [address], [place] [address] Jan, [facility] [address] [id number] [address] [place] [address], [place] [address] December, [facility] [address] [id number] [address] [place] [address], [place] [address] December, [facility] [address] [id number] [facility] [place] [address] December, [facility] [address] [id number] [address] [place] [address], [place] [address] December, [facility] [address] [id number] [address] [place] [address], [place] [address] December, [facility] [address] [id number] [address] [place] [address], [place] [address] Nov, [facility] [address] [id number] [address] [place] [address], [place] [address] Nov, [facility] [address] [id number] [address] [place] [address], [place] [address] Nov, [facility] [address] [id number] [address] [place] [address], [place] [address] Oct, [facility] [address] [id number] [address] [place] [address], [place] [address] Oct, [facility] [address] [id number] [address] [place] [address], [place] [address] Oct, [facility] [address] [id number] [address] [place] [address], [place] [address] Oct, [facility] [address] [id number] [address] [place] [address], [place] [address] Oct, [facility] [address] [id number] [address] [place] [address], [place] [address] Oct, [facility] [address] [id number] [address] [place] [address], [place] [address] Oct, [facility] [address] [id number] [address] [place] [address], [place] [address] Oct, [facility] [address] [id number] [address] [place] [address], [place] [address] Oct, [facility] [address] [id number] [address] [place] [address], [place] [address] Sep, [facility] [address] [id number] [address] [place] [address], [place] [address] Sep, [facility] [address] [id number] [address] [place] [address], [place] [address] Aug, [facility] [address] [id number] [address] [place] [address], [place] [address] Aug, [facility] [address] [id number] [address] [place] [address], [place] [address] Aug, [facility] [address] [id number] [address] [place] [address], [place] [address] Aug, [facility] [address] [id number] [address] [place] [address], [place] [address] Jul, [facility] [address] [id number] [address] [place] [address], [place] [address] Jul, [facility] [address] [id number] [address] [place] [address], [place] [address] Jul, [facility] [address] [id number] [address] [place] [address], [place] [address] Jul, [facility] [address] [id number] [address] [place] [address], [place] [address] Jun, [facility] [address] [id number] [address] [place] [address], [place] [address] Jun, [facility] [address] [id number] [address] [place] [address], [place] [address] Jun, [facility] [address] [id number] [address] [place] [address], [place] [address] Jun, [facility] [address] [id number] [address] [place] [address], [place] [address] May, [facility] [address] [id number] [address] [place] [address], [place] [address] May, [facility] [address] [id number] [address] [place] [address], [place] [address] May, [facility] [address] [id number] [address] [place] [address], [place] [address] May, [facility] [address] [id number] [address] [place] [address], [place] [address] May, [facility] [address] [id number] [address] [place] [address], [place] [address] May, [facility] [address] [id number] [address] [place] [address], [place] [address] Apr, [facility] [address] [id number] [address] [place] [address], [place] [address] Mar, [facility] [address] [id number] [address] [place] [address], [place] [address] Mar, [facility] [address] [id number] [address] [place] [address], [place] [address] Mar, [facility] [address] [id number] [address] [place] [address], [place] [address] Feb, [facility] [address] [id number] [address] [place] [address], [place] [address] Feb, [facility] [address] [id number] [address] [place] [address], [place] [id number] Feb, [facility] [address] [id number] [address] [place] [address], [place] [id number] Jan, [facility] [address] [id number] [address] [place] [address], [place] [id number] Jan, [facility] [address] [id number] [address] [place] [address], [place] [id number] December, [facility] [address] [id number] [address] [place] [address], [place] [id number] December, [facility] [address] [id number] [address] [place] [address], [place] [id number] December, [facility] [address] [id number] [address] [place] [address], [place] [id number] 29 Nov, 2012 [facility] [address] [id number] [address] [place] [address], [place] [id number] 24 Nov, 2012 [facility] [address] [id number] [address] [place] [address], [place] [id number] Nov, [facility] [address] [id number] [address] [place] [address], [place] [id number] 2012 [facility] [address] [id number] [address] [place] [address], [place] [id number] 15 Nov, 2012 [facility] [address] [id number] [address] [place] [address], [place] [id number] 05 Nov, 2012 [facility] [address] [id number] [address] [place] [address], [place] [id number] Oct, [facility] [address] [id number] [address] [place] [address], [place] [id number] 14 Oct, 2012 [facility] [address] [id number] [address] [place] [address], [place] [id number] Oct, [facility] [address] [id number] [address] [place] [address], [place] [id number] Oct, [facility] [address] [id number] [address] [place] [address], [place] [id number] 28 Sep, 2012 [facility] [address] [id number] [address] [place] [address], [place] [id number] Sep, [facility] [address] [id number] [address] [place] [address], [place] [id number] 18 Sep, 2012 [facility] [address] [id number] [address] [place] [address], [place] [id number] Sep, [facility] [address] [id number] [address] [place] [address], [place] [id number] Sep, [facility] [address] [id number] [address] [place] [phone] Aug, [facility] [address] [id number] [address] [place] [phone] Aug, [facility] [address] [id number] [address] [place] [phone] Aug, [facility] [address] [id number] [address] [place] [phone] Aug, [facility] [address] [id number] [address] [place] [id number] Aug, [facility] [address] [id number] [address] [place] [id number] Aug, [facility] [address] [id number] [address] [place] [phone] May, [facility] [address] [id number] [address] [place] [id number] May, IMMUNIZATIONS No Known Immunizations SOCIAL HISTORY Never Assessed REASON FOR VISIT EMR-[facility] PLAN OF CARE VITAL SIGNS MEDICATIONS Unknown Medications RESULTS No Results PROCEDURES No Known procedures INSTRUCTIONS MEDICATIONS ADMINISTERED No Known Medications MEDICAL (GENERAL) HISTORY Type Description Date Medical History type I diabetes Medical History hx of MRSA infections Medical History depression Medical History anxiety Surgical History I & D-MRSA Hospitalization History MRSA 2003
--- OUTSIDE RECORDS SUMMARY | 2020-01-16 00:25 | XMS REPORT ---
Author Author Darien Guerra Doctor Organization [facility] Address Unknown Phone Unavailable Care Team Providers Care Cyber Legal Advisor Name Role Phone Migration, Doctor Unavailable Unavailable PROBLEMS Type Condition ICD9-CM Code [id number] Code Onset Dates Condition S tatus SNOMED Code Problem Diabetes type 1, controlled E10.9 Ac tive 15155204 Problem Type 2 diabetes mellitus with hyperglycemia E11.65 Active 841738525321029 Problem Other chronic pain G89.29 Active 8 1950103 Problem Schizoaffective disorder, depressive type F25.1 Active 07580664 Problem Type 1 diabetes mellitus with hyperglycemia E10.65 Active 793450302122250 Problem Type 1 diabetes mellitus with diabetic polyneuropathy E10.42 Active 00241897 Problem Mood disorder F39 Active 235150 05 Problem Uncontrolled type 1 diabetes mellitus without complication E10.9 Active 869978110 ALLERGIES No Information ENCOUNTERS Encounter Location Date Diagnosis [facility] [address] [id number] [address] [place] [address] December, [facility] [address] [id number] [address] [place] [address] Nov, [facility] [address] [id number] [address] [place] [address] 14 Nov, 2016 Uncontrolled type 1 diabetes mellitus without complication E10.9 [facility] [address] [id number] [address] [place] [address] 13 Nov, 2016 Impingement syndrome, should er, right M75.41 and Adhesive capsulitis of right shoulder M75.01 [facility] [address] [id number] [address] [place] [address] 03 Nov, 2016 Uncontrolled type 1 diabetes mellitus without complication E10.9 [facility] [address] [id number] [address] [place] [address] Oct, Uncontrolled type 1 diabetes mellitus without complication E10.9 ; Other chronic pain G89.29 ; Pain in right shoulder M25.511 and Schizoaffective disorder, depressive type F25.1 [facility] [address] [id number] [address] [place] [address] May, Mood disorder F39 and Contro lled diabetes mellitus type 1 without complications E10.9 [facility] [address] [id number] [address] [place] [address] May, [facility] [address] [id number] [address] [place] [address] May, [facility] [address] [id number] [address] [place] [address] Apr, Mood disorder F39 ; 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 and Type 1 diabetes mellitus with hyperglycemia E10.65 [facility] [address] [id number] [address] [place] [address] Apr, Mood disorder F39 [facility] [address] [id number] [address] [place] [address] Mar, [facility] [address] [id number] [address] [place] [address] Feb, [facility] [address] [id number] [address] [place] [address] Jan, [facility] [address] [id number] [address] [place] [address] Jan, [facility] [address] [id number] [address] [place] [address] Jan, [facility] [address] [id number] [address] [place] [id number] December, [facility] [address] [facility] [id number] [address] [place] [address] December, 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 and Controlled type 1 diabetes mellitus with diabetic neuropathy, with long-term current use of insulin E10.40 [facility] [address] [facility] [id number] [address] [place] [address] December, Schizo-affective schizophren ia F25.0 [facility] [address] [facility] [id number] [address] [place] [address] Nov, [facility] [address] [facility] [id number] [address] [place] [id number] Nov, Anxiety disorder, unspecifie d F41.9 and Schizo-affective schizophrenia F25.0 [facility] [address] [facility] [id number] [address] [place] [address] Nov, Schizo-affective schizophren ia F25.0 [facility] [address] [facility] [id number] [address] [place] [phone] Oct, [facility] [address] [id number] [address] [place] [address] Sep, [facility] [address] [id number] [address] [place] [address] Sep, [facility] [address] [facility] [id number] [address] [place] [address] Sep, [facility] [address] [id number] [address] [place] [phone] Aug, [facility] [address] [id number] [address] [place] [address] Aug, [facility] [address] [id number] [address] [place] [address] Jul, [facility] [address] [id number] [address] [place] [address] Jul, Diabetes type 1, controlled E10.9 [facility] [address] [id number] [address] [place] [address] Jun, Diabetes mellitus without me ntion of complication, type II or unspecified type, uncontrolled 250.02 [facility] [address] [id number] [address] [place] [address] Jun, Diabetes type 1, controlled E10.9 [place] [address] [address] May, Diabetes mellitus without me ntion of complication, type II or unspecified type, uncontrolled 250.02 [place] [address] [address] May, Anxiety 300.00 [place] [address] [address] May, Diabetes type 1, controlled E10.9 ; Schizo-affective schizophrenia F25.0 ; Mood disorder F39 and Bipolar 1 disorder F31.9 [place] [address] [address] May, [place] [address] [address] May, Anxiety F41.9 and Depression F32.9 [place] [address] [address] Apr, Diabetes mellitus without me ntion of complication, type II or unspecified type, uncontrolled 250.02 [place] [address] [address] Apr, Anxiety 300.00 and Diabetes mellitus without mention of complication, type II or unspecified type, uncontrolled 250.02 [place] [address] [address] Apr, [place] [address] [address] Apr, Anxiety 300.00 and Depressio n 311 [address] [address] [address] Apr, Major depression, recurrent 296.30 ; Anxiety, generalized 300.02 and No condition on [place] II V71.09 [place] [address] [address] Apr, [facility] [address] [id number] [address] [place] [address] Mar, Diabetes mellitus without me ntion of complication, type II or unspecified type, uncontrolled 250.02 and Anxiety 300.00 [facility] [address] [id number] [address] [place] [address] Mar, [facility] [address] [id number] [address] [place] [address] Feb, [facility] [address] [id number] [address] [place] [phone] Feb, [facility] [address] [id number] [address] [place] [phone] Feb, [facility] [address] [id number] [address] [place] [phone] Jan, [facility] [address] [id number] [address] [place] [phone] Jan, [facility] [address] [id number] [address] [place] [phone] Jan, [facility] [address] [id number] [address] [place] [address] Jan, [facility] [address] [id number] [address] [place] [address] December, [facility] [address] [id number] [address] [place] [id number] December, Dental examination V72.2 [facility] [address] [id number] [address] [place] [address] December, Tooth pain 525.9 [facility] [address] [id number] [address] [place] [address] December, [facility] [address] [id number] [address] [place] [phone] Nov, [facility] [address] [id number] [address] [place] [address], [place] [address] Nov, [facility] [address] [id number] [address] [place] [address], [place] [address] Oct, [facility] [address] [id number] [address] [place] [address], [place] [address] Oct, [facility] [address] [id number] [address] [place] [address], [place] [address] Sep, [facility] [address] [id number] [address] [place] [address], [place] [address] Sep, [facility] [address] [id number] [address] [place] [address], [place] [address] Sep, [facility] [address] [id number] [address] [place] [address], [place] [address] Sep, [facility] [address] [id number] [address] [place] [address], [place] [address] Aug, [facility] [address] [id number] [address] [place] [address], [place] [address] Aug, [facility] [address] [id number] [address] [place] [address], [place] [address] Aug, [facility] [address] [id number] [address] [place] [address], [place] [address] Aug, [facility] [address] [id number] [address] [place] [address], [place] [address] Jul, [facility] [address] [id number] [address] [place] [address], [place] [address] Jul, [facility] [address] [id number] [address] [place] [address], [place] [address] Jun, [facility] [address] [id number] [address] [place] [address], [place] [address] Jun, [facility] [address] [id number] [address] [place] [address], [place] [address] May, [facility] [address] [id number] [address] [place] [address], [place] [address] May, [facility] [address] [id number] [address] [place] [address], [place] [address] May, [facility] [address] [id number] [address] [place] [address], [place] [address] May, [facility] [address] [id number] [address] [place] [address], [place] [address] May, [facility] [address] [id number] [address] [place] [address], [place] [address] May, [facility] [address] [id number] [address] [place] [address], [place] [address] Apr, [facility] [address] [id number] [address] [place] [address], [place] [address] Apr, [facility] [address] [id number] [address] [place] [address], [place] [address] Apr, [facility] [address] [id number] [address] [place] [address], [place] [address] Apr, [facility] [address] [id number] [address] [place] [address], [place] [address] Apr, [facility] [address] [id number] [address] [place] [address], [place] [address] Apr, [facility] [address] [id number] [address] [place] [address], [place] [address] Mar, [facility] [address] [id number] [address] [place] [address], [place] [address] Mar, [facility] [address] [id number] [address] [place] [address], [place] [address] Mar, [facility] [address] [id number] [address] [place] [address], [place] [address] Mar, [facility] [address] [id number] [facility] [place] [address] Feb, [facility] [address] [id number] [facility] [place] [address] Feb, [facility] [address] [id number] [facility] [place] [address] Feb, [facility] [address] [id number] [facility] [place] [address] Feb, [facility] [address] [id number] [facility] [place] [address] Jan, [facility] [address] [id number] [address] [place] [address], [place] [address] Jan, [facility] [address] [id number] [address] [place] [address], [place] [address] Jan, [facility] [address] [id number] [address] [place] [address], [place] [address] Jan, [facility] [address] [id number] [address] [place] [address], [place] [address] Jan, [facility] [address] [id number] [address] [place] [address], [place] [address] Jan, [facility] [address] [id number] [address] [place] [address], [place] [address] Jan, [facility] [address] [id number] [address] [place] [address], [place] [address] Jan, [facility] [address] [id number] [address] [place] [address], [place] [address] Jan, [facility] [address] [id number] [address] [place] [address], [place] [address] Jan, [facility] [address] [id number] [address] [place] [address], [place] [address] December, [facility] [address] [id number] [address] [place] [address], [place] [address] December, [facility] [address] [id number] [facility] [place] [address] December, [facility] [address] [id number] [address] [place] [address], [place] [address] December, [facility] [address] [id number] [address] [place] [address], [place] [address] December, [facility] [address] [id number] [address] [place] [address], [place] [address] Nov, [facility] [address] [id number] [address] [place] [address], [place] [address] Nov, [facility] [address] [id number] [address] [place] [address], [place] [address] Nov, [facility] [address] [id number] [address] [place] [address], [place] [address] Oct, [facility] [address] [id number] [address] [place] [address], [place] [address] Oct, [facility] [address] [id number] [address] [place] [address], [place] [address] Oct, [facility] [address] [id number] [address] [place] [address], [place] [address] Oct, [facility] [address] [id number] [address] [place] [address], [place] [address] Oct, [facility] [address] [id number] [address] [place] [address], [place] [address] Oct, [facility] [address] [id number] [address] [place] [address], [place] [address] Oct, [facility] [address] [id number] [address] [place] [address], [place] [address] Oct, [facility] [address] [id number] [address] [place] [address], [place] [address] Oct, [facility] [address] [id number] [address] [place] [address], [place] [address] Sep, [facility] [address] [id number] [address] [place] [address], [place] [address] Sep, [facility] [address] [id number] [address] [place] [address], [place] [address] Aug, [facility] [address] [id number] [address] [place] [address], [place] [address] Aug, [facility] [address] [id number] [address] [place] [address], [place] [address] Aug, [facility] [address] [id number] [address] [place] [address], [place] [address] Aug, [facility] [address] [id number] [address] [place] [address], [place] [address] Jul, [facility] [address] [id number] [address] [place] [address], [place] [address] Jul, [facility] [address] [id number] [address] [place] [address], [place] [address] Jul, [facility] [address] [id number] [address] [place] [address], [place] [address] Jul, [facility] [address] [id number] [address] [place] [address], [place] [address] Jun, [facility] [address] [id number] [address] [place] [address], [place] [address] Jun, [facility] [address] [id number] [address] [place] [address], [place] [address] Jun, [facility] [address] [id number] [address] [place] [address], [place] [address] Jun, [facility] [address] [id number] [address] [place] [address], [place] [address] May, [facility] [address] [id number] [address] [place] [address], [place] [address] May, [facility] [address] [id number] [address] [place] [address], [place] [address] May, [facility] [address] [id number] [address] [place] [address], [place] [address] May, [facility] [address] [id number] [address] [place] [address], [place] [address] May, [facility] [address] [id number] [address] [place] [address], [place] [address] May, [facility] [address] [id number] [address] [place] [address], [place] [address] Apr, [facility] [address] [id number] [address] [place] [address], [place] [address] Mar, [facility] [address] [id number] [address] [place] [address], [place] [address] Mar, [facility] [address] [id number] [address] [place] [address], [place] [address] Mar, [facility] [address] [id number] [address] [place] [address], [place] [address] Feb, [facility] [address] [id number] [address] [place] [address], [place] [address] Feb, [facility] [address] [id number] [address] [place] [address], [place] [address] Feb, [facility] [address] [id number] [address] [place] [address], [place] [address] Jan, [facility] [address] [id number] [address] [place] [address], [place] [address] Jan, [facility] [address] [id number] [address] [place] [address], [place] [address] December, [facility] [address] [id number] [address] [place] [address], [place] [address] December, [facility] [address] [id number] [address] [place] [address], [place] [address] December, [facility] [address] [id number] [address] [place] [address], [place] [address] 29 Nov, 2012 [facility] [address] [id number] [address] [place] [address], [place] [address] 24 Nov, 2012 [facility] [address] [id number] [address] [place] [address], [place] [address] Nov, [facility] [address] [id number] [address] [place] [address], [place] [address] 2012 [facility] [address] [id number] [address] [place] [address], [place] [address] 15 Nov, 2012 [facility] [address] [id number] [address] [place] [address], [place] [address] 05 Nov, 2012 [facility] [address] [id number] [address] [place] [address], [place] [address] Oct, [facility] [address] [id number] [address] [place] [address], [place] [id number] 14 Oct, 2012 [facility] [address] [id number] [address] [place] [address], [place] [id number] Oct, [facility] [address] [id number] [address] [place] [address], [place] [id number] Oct, [facility] [address] [id number] [address] [place] [address], [place] [id number] 28 Sep, 2012 [facility] [address] [id number] [address] [place] [address], [place] [id number] Sep, [facility] [address] [id number] [address] [place] [address], [place] [id number] 18 Sep, 2012 [facility] [address] [id number] [address] [place] [address], [place] [id number] Sep, [facility] [address] [id number] [address] [place] [address], [place] [id number] Sep, [facility] [address] [id number] [address] [place] [phone] Aug, [facility] [address] [id number] [address] [place] [phone] Aug, [facility] [address] [id number] [address] [place] [id number] Aug, [facility] [address] [id number] [address] [place] [phone] Aug, [facility] [address] [id number] [address] [place] [phone] Aug, [facility] [address] [id number] [address] [place] [id number] Aug, [facility] [address] [id number] [address] [place] [phone] May, [facility] [address] [id number] [address] [place] [phone] May, IMMUNIZATIONS No Known Immunizations SOCIAL HISTORY Never Assessed REASON FOR VISIT [facility] [place] PLAN OF CARE VITAL SIGNS MEDICATIONS Medication Instructions Dosage Frequency Start Date End Date Duration S tat Wellbutrin XL 150 mg take 2 tablets by O ral route 1 time per day voucher 1st fill Aug, Active GlucaGen HypoKit 1 mg 1 time per day PRN use as direct ed for hypoglycemia Apr, Active Adderall XR 30 mg take 1 capsule by Or al route in the morning 2 times per day upon awakening for ADHD Oct, Act sukhi Levemir Flexpen 100 unit/mL (3 mL) 35 Un it by Subcutaneous route 1 time per day Jan, Active Pen [place] 32 g 32 gauge by Subcutaneous route for us e with flex pens Jan, Active Risperdal 1 mg 1 tablet by Oral route 3 times per day Sep, Active NovoLog Flexpen 100 unit/mL inject 15 Un its by Subcutaneous route before meals 3 times per day Apr, Active RESULTS No Results PROCEDURES No Known procedures INSTRUCTIONS MEDICATIONS ADMINISTERED No Known Medications MEDICAL (GENERAL) HISTORY Type Description Date Medical History type I diabetes Medical History hx of MRSA infections Medical History depression Medical History anxiety Surgical History I & D-MRSA Hospitalization History MRSA 2003
--- OUTSIDE RECORDS SUMMARY | 2020-01-16 00:25 | XMS REPORT ---
Author Author Darien Guerra Doctor Organization [facility] Address Unknown Phone Unavailable Care Team Providers Care Lumber Carrier Operator Name Role Phone Migration, Doctor Unavailable Unavailable PROBLEMS Type Condition ICD9-CM Code FME48-PT Code Onset Dates Condition S tatus SNOMED Code Problem Diabetes type 1, controlled E10.9 Ac tive 43235586 Problem Type 2 diabetes mellitus with hyperglycemia E11.65 Active 295655151099452 Problem Other chronic pain G89.29 Active 8 1967960 Problem Schizoaffective disorder, depressive type F25.1 Active 10745549 Problem Type 1 diabetes mellitus with hyperglycemia E10.65 Active [id number] Problem Type 1 diabetes mellitus with diabetic polyneuropathy E10.42 Active 20003057 Problem Mood disorder F39 Active 927906 05 Problem Uncontrolled type 1 diabetes mellitus without complication E10.9 Active [id number] ALLERGIES No Information ENCOUNTERS Encounter Location Date Diagnosis [facility] [address] [id number] [address] [place] [phone] December, [facility] [address] [id number] [address] [place] [phone] Nov, [facility] [address] [id number] [address] [place] [phone] 14 Nov, 2016 Uncontrolled type 1 diabetes mellitus without complication E10.9 [facility] [address] [id number] [address] [place] [id number] 13 Nov, 2016 Impingement syndrome, should er, right M75.41 and Adhesive capsulitis of right shoulder M75.01 [facility] [address] [id number] [address] [place] [phone] 03 Nov, 2016 Uncontrolled type 1 diabetes mellitus without complication E10.9 [facility] [address] [id number] [address] [place] [phone] Oct, Uncontrolled type 1 diabetes mellitus without complication E10.9 ; Other chronic pain G89.29 ; Pain in right shoulder M25.511 and Schizoaffective disorder, depressive type F25.1 [facility] [address] [id number] [address] [place] [phone] May, Mood disorder F39 and Contro lled diabetes mellitus type 1 without complications E10.9 [facility] [address] [id number] [address] [place] [phone] May, [facility] [address] [id number] [address] [place] [phone] May, [facility] [address] [id number] [address] [place] [phone] Apr, Mood disorder F39 ; 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 and Type 1 diabetes mellitus with hyperglycemia E10.65 [facility] [address] [id number] [address] [place] [phone] Apr, Mood disorder F39 [facility] [address] [id number] [address] [place] [phone] Mar, [facility] [address] [id number] [address] [place] [phone] Feb, [facility] [address] [id number] [address] [place] [phone] Jan, [facility] [address] [id number] [address] [place] [phone] Jan, [facility] [address] [id number] [address] [place] [phone] Jan, [facility] [address] [id number] [address] [place] [phone] December, [facility] [address] [facility] [id number] [address] [place] [phone] December, 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 and Controlled type 1 diabetes mellitus with diabetic neuropathy, with long-term current use of insulin E10.40 [facility] [address] [facility] [id number] [address] [place] [phone] December, Schizo-affective schizophren ia F25.0 [facility] [address] [facility] [id number] [address] [place] [phone] Nov, [facility] [address] [facility] [id number] [address] [place] [phone] Nov, Anxiety disorder, unspecifie d F41.9 and Schizo-affective schizophrenia F25.0 [facility] [address] [facility] [id number] [address] [place] [phone] Nov, Schizo-affective schizophren ia F25.0 [facility] [address] [facility] [id number] [address] [place] [phone] Oct, [facility] [address] [id number] [address] [place] [phone] Sep, [facility] [address] [id number] [address] [place] [phone] Sep, [facility] [address] [facility] [id number] [address] [place] [phone] Sep, [facility] [address] [id number] [address] [place] [address] Aug, [facility] [address] [id number] [address] [place] [phone] Aug, [facility] [address] [id number] [address] [place] [phone] Jul, [facility] [address] [id number] [address] [place] [address] Jul, Diabetes type 1, controlled E10.9 [facility] [address] [id number] [address] [place] [phone] Jun, Diabetes mellitus without me ntion of complication, type II or unspecified type, uncontrolled 250.02 [facility] [address] [id number] [address] [place] [address] Jun, Diabetes type 1, controlled E10.9 [place] [address] [address] May, Diabetes mellitus without me ntion of complication, type II or unspecified type, uncontrolled 250.02 [place] [address] [address] May, Anxiety 300.00 [place] [address] [address] May, Diabetes type 1, controlled E10.9 ; Schizo-affective schizophrenia F25.0 ; Mood disorder F39 and Bipolar 1 disorder F31.9 [place] [address] [address] May, [place] [address] [address] May, Anxiety F41.9 and Depression F32.9 [place] [address] [address] Apr, Diabetes mellitus without me ntion of complication, type II or unspecified type, uncontrolled 250.02 [place] [address] [address] Apr, Anxiety 300.00 and Diabetes mellitus without mention of complication, type II or unspecified type, uncontrolled 250.02 [place] [address] [address] Apr, [place] [address] [address] Apr, Anxiety 300.00 and Depressio n [address] [place] [address] [address] Apr, Major depression, recurrent 296.30 ; Anxiety, generalized 300.02 and No condition on [place] II V71.09 [place] [address] [address] Apr, [facility] [address] [id number] [address] [place] [address] Mar, Diabetes mellitus without me ntion of complication, type II or unspecified type, uncontrolled 250.02 and Anxiety 300.00 [facility] [address] [id number] [address] [place] [phone] Mar, [facility] [address] [id number] [address] [place] [phone] Feb, [facility] [address] [id number] [address] [place] [phone] Feb, [facility] [address] [id number] [address] [place] [phone] Feb, [facility] [address] [id number] [address] [place] [phone] Jan, [facility] [address] [id number] [address] [place] [phone] Jan, [facility] [address] [id number] [address] [place] [phone] Jan, [facility] [address] [id number] [address] [place] [phone] Jan, [facility] [address] [id number] [address] [place] [phone] December, [facility] [address] [id number] [address] [place] [id number] December, Dental examination V72.2 [facility] [address] [id number] [address] [place] [phone] December, Tooth pain 525.9 [facility] [address] [id number] [address] [place] [phone] December, [facility] [address] [id number] [address] [place] [phone] Nov, [facility] [address] [id number] [address] [place] [address], [place] [address] Nov, [facility] [address] [id number] [address] [place] [address], [place] [address] Oct, [facility] [address] [id number] [address] [place] [address], [place] [address] Oct, [facility] [address] [id number] [address] [place] [address], [place] [address] Sep, [facility] [address] [id number] [address] [place] [address], [place] [address] Sep, [facility] [address] [id number] [address] [place] [address], [place] [address] Sep, [facility] [address] [id number] [address] [place] [address], [place] [address] Sep, [facility] [address] [id number] [address] [place] [address], [place] [address] Aug, [facility] [address] [id number] [address] [place] [address], [place] [address] Aug, [facility] [address] [id number] [address] [place] [address], [place] [address] Aug, [facility] [address] [id number] [address] [place] [address], [place] [address] Aug, [facility] [address] [id number] [address] [place] [address], [place] [address] Jul, [facility] [address] [id number] [address] [place] [address], [place] [address] Jul, [facility] [address] [id number] [address] [place] [address], [place] [address] Jun, [facility] [address] [id number] [address] [place] [address], [place] [address] Jun, [facility] [address] [id number] [address] [place] [address], [place] [address] May, [facility] [address] [id number] [address] [place] [address], [place] [address] May, [facility] [address] [id number] [address] [place] [address], [place] [address] May, [facility] [address] [id number] [address] [place] [address], [place] [address] May, [facility] [address] [id number] [address] [place] [address], [place] [address] May, [facility] [address] [id number] [address] [place] [address], [place] [address] May, [facility] [address] [id number] [address] [place] [address], [place] [address] Apr, [facility] [address] [id number] [address] [place] [address], [place] [address] Apr, [facility] [address] [id number] [address] [place] [address], [place] [address] Apr, [facility] [address] [id number] [address] [place] [address], [place] [address] Apr, [facility] [address] [id number] [address] [place] [address], [place] [address] Apr, [facility] [address] [id number] [address] [place] [address], [place] [address] Apr, [facility] [address] [id number] [address] [place] [address], [place] [address] Mar, [facility] [address] [id number] [address] [place] [address], [place] [address] Mar, [facility] [address] [id number] [address] [place] [address], [place] [address] Mar, [facility] [address] [id number] [address] [place] [address], [place] [address] Mar, [facility] [address] [id number] [facility] [place] [address] Feb, [facility] [address] [id number] [facility] [place] [address] Feb, [facility] [address] [id number] [facility] [place] [address] Feb, [facility] [address] [id number] [facility] [place] [address] Feb, [facility] [address] [id number] [facility] [place] [address] Jan, [facility] [address] [id number] [address] [place] [address], [place] [address] Jan, [facility] [address] [id number] [address] [place] [address], [place] [address] Jan, [facility] [address] [id number] [address] [place] [address], [place] [address] Jan, [facility] [address] [id number] [address] [place] [address], [place] [address] Jan, [facility] [address] [id number] [address] [place] [address], [place] [address] Jan, [facility] [address] [id number] [address] [place] [address], [place] [address] Jan, [facility] [address] [id number] [address] [place] [address], [place] [address] Jan, [facility] [address] [id number] [address] [place] [address], [place] [address] Jan, [facility] [address] [id number] [address] [place] [address], [place] [address] Jan, [facility] [address] [id number] [address] [place] [address], [place] [address] December, [facility] [address] [id number] [address] [place] [address], [place] [address] December, [facility] [address] [id number] [facility] [place] [address] December, [facility] [address] [id number] [address] [place] [address], [place] [address] December, [facility] [address] [id number] [address] [place] [address], [place] [address] December, [facility] [address] [id number] [address] [place] [address], [place] [address] Nov, [facility] [address] [id number] [address] [place] [address], [place] [address] Nov, [facility] [address] [id number] [address] [place] [address], [place] [address] Nov, [facility] [address] [id number] [address] [place] [address], [place] [address] Oct, [facility] [address] [id number] [address] [place] [address], [place] [address] Oct, [facility] [address] [id number] [address] [place] [address], [place] [address] Oct, [facility] [address] [id number] [address] [place] [address], [place] [address] Oct, [facility] [address] [id number] [address] [place] [address], [place] [address] Oct, [facility] [address] [id number] [address] [place] [address], [place] [address] Oct, [facility] [address] [id number] [address] [place] [address], [place] [address] Oct, [facility] [address] [id number] [address] [place] [address], [place] [address] Oct, [facility] [address] [id number] [address] [place] [address], [place] [address] Oct, [facility] [address] [id number] [address] [place] [address], [place] [address] Sep, [facility] [address] [id number] [address] [place] [address], [place] [address] Sep, [facility] [address] [id number] [address] [place] [address], [place] [address] Aug, [facility] [address] [id number] [address] [place] [address], [place] [address] Aug, [facility] [address] [id number] [address] [place] [address], [place] [address] Aug, [facility] [address] [id number] [address] [place] [address], [place] [address] Aug, [facility] [address] [id number] [address] [place] [address], [place] [address] Jul, [facility] [address] [id number] [address] [place] [address], [place] [address] Jul, [facility] [address] [id number] [address] [place] [address], [place] [address] Jul, [facility] [address] [id number] [address] [place] [address], [place] [address] Jul, [facility] [address] [id number] [address] [place] [address], [place] [address] Jun, [facility] [address] [id number] [address] [place] [address], [place] [address] Jun, [facility] [address] [id number] [address] [place] [address], [place] [address] Jun, [facility] [address] [id number] [address] [place] [address], [place] [address] Jun, [facility] [address] [id number] [address] [place] [address], [place] [address] May, [facility] [address] [id number] [address] [place] [address], [place] [address] May, [facility] [address] [id number] [address] [place] [address], [place] [address] May, [facility] [address] [id number] [address] [place] [address], [place] [address] May, [facility] [address] [id number] [address] [place] [address], [place] [address] May, [facility] [address] [id number] [address] [place] [address], [place] [address] May, [facility] [address] [id number] [address] [place] [address], [place] [address] Apr, [facility] [address] [id number] [address] [place] [address], [place] [address] Mar, [facility] [address] [id number] [address] [place] [address], [place] [address] Mar, [facility] [address] [id number] [address] [place] [address], [place] [address] Mar, [facility] [address] [id number] [address] [place] [address], [place] [address] Feb, [facility] [address] [id number] [address] [place] [address], [place] [address] Feb, [facility] [address] [id number] [address] [place] [address], [place] [address] Feb, [facility] [address] [id number] [address] [place] [address], [place] [address] Jan, [facility] [address] [id number] [address] [place] [address], [place] [address] Jan, [facility] [address] [id number] [address] [place] [address], [place] [address] December, [facility] [address] [id number] [address] [place] [address], [place] [address] December, [facility] [address] [id number] [address] [place] [address], [place] [address] December, [facility] [address] [id number] [address] [place] [address], [place] [address] 29 Nov, 2012 [facility] [address] [id number] [address] [place] [address], [place] [address] 24 Nov, 2012 [facility] [address] [id number] [address] [place] [address], [place] [address] Nov, [facility] [address] [id number] [address] [place] [address], [place] [address] 2012 [facility] [address] [id number] [address] [place] [address], [place] [address] 15 Nov, 2012 [facility] [address] [id number] [address] [place] [address], [place] [address] 05 Nov, 2012 [facility] [address] [id number] [address] [place] [address], [place] [address] Oct, [facility] [address] [id number] [address] [place] [address], [place] [address] 14 Oct, 2012 [facility] [address] [id number] [address] [place] [address], [place] [address] Oct, [facility] [address] [id number] [address] [place] [address], [place] [address] Oct, [facility] [address] [id number] [address] [place] [address], [place] [address] 28 Sep, 2012 [facility] [address] [id number] [address] [place] [address], [place] [address] Sep, [facility] [address] [id number] [address] [place] [address], [place] [address] 18 Sep, 2012 [facility] [address] [id number] [address] [place] [address], [place] [address] Sep, [facility] [address] [id number] [address] [place] [address], [place] [address] Sep, [facility] [address] [id number] [address] [place] [phone] Aug, [facility] [address] [id number] [address] [place] [phone] Aug, [facility] [address] [id number] [address] [place] [phone] Aug, [facility] [address] [id number] [address] [place] [phone] Aug, [facility] [address] [id number] [address] [place] [phone] Aug, [facility] [address] [id number] [address] [place] [phone] Aug, [facility] [address] [id number] [address] [place] [phone] May, [facility] [address] [id number] [address] [place] [phone] May, IMMUNIZATIONS No Known Immunizations SOCIAL HISTORY Never Assessed REASON FOR VISIT EMR-[facility] [place] PLAN OF CARE VITAL SIGNS MEDICATIONS Unknown Medications RESULTS No Results PROCEDURES No Known procedures INSTRUCTIONS MEDICATIONS ADMINISTERED No Known Medications MEDICAL (GENERAL) HISTORY Type Description Date Medical History type I diabetes Medical History hx of MRSA infections Medical History depression Medical History anxiety Surgical History [facility] Hospitalization History MRSA 2003
--- OUTSIDE RECORDS SUMMARY | 2020-01-16 00:25 | XMS REPORT ---
Author Author Darien VILLALOBOS Organization [employer] Address Unknown Phone Unavailable Care Team Providers Care Wildlife Biologist Name Role Phone CHRISTOPHER VILLALOBOS CP Unavailable Allergies No Known Allergies Problems Problem Type Condition Code Onset Dates Condition Statu s Problem Diabetes type 1, controlled E10.9 Active Medications Medication Code System Code Instructions Start Date End Date Status Dosage Adderall XR [facility] [id number] 30 MG 2 times a day October 29, 2014 1 capsule Results No Known Results Summary Purpose [employer] Submission
--- OUTSIDE RECORDS SUMMARY | 2020-01-16 00:25 | XMS REPORT ---
Author Author Darien VILLALOBOS Organization [employer] Address Unknown Phone Unavailable Care Team Providers Care Plasterer Foreman Name Role Phone CHRISTOPHER VILLALOBOS CP Unavailable Allergies No Known Allergies Problems Problem Type Condition ICD-9 Code Onset Dates Condition Statu s Problem Diabetes mellitus without me ntion of complication, type I [juvenile type], not stated as uncontrolled 250.01 Active Problem Bipolar I disorder, most rec ent episode (or current) mixed, severe, without mention of psychotic behavior 296.63 Ac tive Problem Unspecified episodic mood disorder 296.90 Active Problem Diabetes mellitus without me ntion of complication, type I [juvenile type], uncontrolled 250.03 Active Problem Unspecified arthropathy, site unspecified 716.90 Active Problem Other and unspecified hyperlipidemia 272.4 Active Problem Diabetes mellitus without me ntion of complication, type II or unspecified type, uncontrolled 250.02 Active Problem Attention deficit disorder o f childhood without mention of hyperactivity 314.00 Active Problem Nondependent tobacco use disorder 305.1 Active Problem Schizoaffective disorder, unspecified 295.70 Active Problem Cellulitis and abscess of unspecified site 682.9 Active Medications Medication Code System Code Instructions Start Date End Date Status Dosage Adderall XR [facility] [address]-44 30 MG [facility] take by Oral route 2 times per day for ADHD Results No Known Results Summary Purpose [employer] Submission
--- OUTSIDE RECORDS SUMMARY | 2020-01-16 00:25 | XMS REPORT ---
Author Darien Longo Organization [employer] Address Unknown Phone Unavailable Care Team Providers Care Supervisor Brine Name Role Phone CHRISTOPHER VILLALOBOS CP Unavailable [...] abscess of unspecified site 682.9 Active Medications No Known Medications Results No Known Results Summary Purpose [employer] Submission
--- OUTSIDE RECORDS SUMMARY | 2020-01-16 00:25 | XMS REPORT ---
Author Author Darien Guerra Doctor Organization [facility] Address Unknown Phone Unavailable Care Team Providers Care Leasing Director Name Role Phone Migration, Doctor Unavailable Unavailable PROBLEMS Type Condition ICD9-CM Code WPA28-DD Code Onset Dates Condition S tatus SNOMED Code Problem Diabetes type 1, controlled E10.9 Ac tive 80458811 Problem Type 2 diabetes mellitus with hyperglycemia E11.65 Active 296730484322152 Problem Other chronic pain G89.29 Active 8 5615065 Problem Schizoaffective disorder, depressive type F25.1 Active 34347872 Problem Type 1 diabetes mellitus with hyperglycemia E10.65 Active [id number] Problem Type 1 diabetes mellitus with diabetic polyneuropathy E10.42 Active 41734141 Problem Mood disorder F39 Active 922624 05 Problem Uncontrolled type 1 diabetes mellitus without complication E10.9 Active [id number] ALLERGIES No Information ENCOUNTERS Encounter Location Date Diagnosis [facility] [address] [id number] [address] [place] [phone] December, [facility] [address] [id number] [address] [place] [phone] Nov, [facility] [address] [id number] [address] [place] [id number] 14 Nov, 2016 Uncontrolled type 1 diabetes mellitus without complication E10.9 [facility] [address] [id number] [address] [place] [id number] 13 Nov, 2016 Impingement syndrome, should er, right M75.41 and Adhesive capsulitis of right shoulder M75.01 [facility] [address] [id number] [address] [place] [phone] 03 Nov, 2016 Uncontrolled type 1 diabetes mellitus without complication E10.9 [facility] [address] [id number] [address] [place] [phone] Oct, Uncontrolled type 1 diabetes mellitus without complication E10.9 ; Other chronic pain G89.29 ; Pain in right shoulder M25.511 and Schizoaffective disorder, depressive type F25.1 [facility] [address] [id number] [address] [place] [phone] May, Mood disorder F39 and Contro lled diabetes mellitus type 1 without complications E10.9 [facility] [address] [id number] [address] [place] [phone] May, [facility] [address] [id number] [address] [place] [phone] May, [facility] [address] [id number] [address] [place] [phone] Apr, Mood disorder F39 ; 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 and Type 1 diabetes mellitus with hyperglycemia E10.65 [facility] [address] [id number] [address] [place] [phone] Apr, Mood disorder F39 [facility] [address] [id number] [address] [place] [phone] Mar, [facility] [address] [id number] [address] [place] [phone] Feb, [facility] [address] [id number] [address] [place] [phone] Jan, [facility] [address] [id number] [address] [place] [phone] Jan, [facility] [address] [id number] [address] [place] [phone] Jan, [facility] [address] [id number] [address] [place] [phone] December, [facility] [address] [facility] [id number] [address] [place] [phone] December, 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 and Controlled type 1 diabetes mellitus with diabetic neuropathy, with long-term current use of insulin E10.40 [facility] [address] [facility] [id number] [address] [place] [phone] December, Schizo-affective schizophren ia F25.0 [facility] [address] [facility] [id number] [address] [place] [phone] Nov, [facility] [address] [facility] [id number] [address] [place] [phone] Nov, Anxiety disorder, unspecifie d F41.9 and Schizo-affective schizophrenia F25.0 [facility] [address] [facility] [id number] [address] [place] [phone] Nov, Schizo-affective schizophren ia F25.0 [facility] [address] [facility] [id number] [address] [place] [phone] Oct, [facility] [address] [id number] [address] [place] [phone] Sep, [facility] [address] [id number] [address] [place] [address] Sep, [facility] [address] [facility] [id number] [address] [place] [phone] Sep, [facility] [address] [id number] [address] [place] [address] Aug, [facility] [address] [id number] [address] [place] [phone] Aug, [facility] [address] [id number] [address] [place] [phone] Jul, [facility] [address] [id number] [address] [place] [address] Jul, Diabetes type 1, controlled E10.9 [facility] [address] [id number] [address] [place] [address] Jun, Diabetes mellitus without me ntion of complication, type II or unspecified type, uncontrolled 250.02 [facility] [address] [id number] [address] [place] [address] Jun, Diabetes type 1, controlled E10.9 [place] [address] [address] May, Diabetes mellitus without me ntion of complication, type II or unspecified type, uncontrolled 250.02 [place] [address] [address] May, Anxiety 300.00 [place] [address] [address] May, Diabetes type 1, controlled E10.9 ; Schizo-affective schizophrenia F25.0 ; Mood disorder F39 and Bipolar 1 disorder F31.9 [place] [address] [address] May, [place] [address] [address] May, Anxiety F41.9 and Depression F32.9 [place] [address] [address] Apr, Diabetes mellitus without me ntion of complication, type II or unspecified type, uncontrolled 250.02 [place] [address] [address] Apr, Anxiety 300.00 and Diabetes mellitus without mention of complication, type II or unspecified type, uncontrolled 250.02 [place] [address] [address] Apr, [place] [address] [address] Apr, Anxiety 300.00 and Depressio n 311 [place] [address] [address] Apr, Major depression, recurrent 296.30 ; Anxiety, generalized 300.02 and No condition on [place] II V71.09 [place] [address] [address] Apr, [facility] [address] [id number] [address] [place] [address] Mar, Diabetes mellitus without me ntion of complication, type II or unspecified type, uncontrolled 250.02 and Anxiety 300.00 [facility] [address] [id number] [address] [place] [phone] Mar, [facility] [address] [id number] [address] [place] [phone] Feb, [facility] [address] [id number] [address] [place] [address] Feb, [facility] [address] [id number] [address] [place] [phone] Feb, [facility] [address] [id number] [address] [place] [phone] Jan, [facility] [address] [id number] [address] [place] [phone] Jan, [facility] [address] [id number] [address] [place] [phone] Jan, [facility] [address] [id number] [address] [place] [phone] Jan, [facility] [address] [id number] [address] [place] [phone] December, [facility] [address] [id number] [address] [place] [id number] December, Dental examination V72.2 [facility] [address] [id number] [address] [place] [phone] December, Tooth pain 525.9 [facility] [address] [id number] [address] [place] [phone] December, [facility] [address] [id number] [address] [place] [phone] Nov, [facility] [address] [id number] [address] [place] [address], [place] [address] Nov, [facility] [address] [id number] [address] [place] [address], [place] [address] Oct, [facility] [address] [id number] [address] [place] [address], [place] [address] Oct, [facility] [address] [id number] [address] [place] [address], [place] [address] Sep, [facility] [address] [id number] [address] [place] [address], [place] [address] Sep, [facility] [address] [id number] [address] [place] [address], [place] [address] Sep, [facility] [address] [id number] [address] [place] [address], [place] [address] Sep, [facility] [address] [id number] [address] [place] [address], [place] [address] Aug, [facility] [address] [id number] [address] [place] [address], [place] [address] Aug, [facility] [address] [id number] [address] [place] [address], [place] [address] Aug, [facility] [address] [id number] [address] [place] [address], [place] [address] Aug, [facility] [address] [id number] [address] [place] [address], [place] [address] Jul, [facility] [address] [id number] [address] [place] [address], [place] [address] Jul, [facility] [address] [id number] [address] [place] [address], [place] [address] Jun, [facility] [address] [id number] [address] [place] [address], [place] [address] Jun, [facility] [address] [id number] [address] [place] [address], [place] [address] May, [facility] [address] [id number] [address] [place] [address], [place] [address] May, [facility] [address] [id number] [address] [place] [address], [place] [address] May, [facility] [address] [id number] [address] [place] [address], [place] [address] May, [facility] [address] [id number] [address] [place] [address], [place] [address] May, [facility] [address] [id number] [address] [place] [address], [place] [address] May, [facility] [address] [id number] [address] [place] [address], [place] [address] Apr, [facility] [address] [id number] [address] [place] [address], [place] [address] Apr, [facility] [address] [id number] [address] [place] [address], [place] [address] Apr, [facility] [address] [id number] [address] [place] [address], [place] [address] Apr, [facility] [address] [id number] [address] [place] [address], [place] [address] Apr, [facility] [address] [id number] [address] [place] [address], [place] [address] Apr, [facility] [address] [id number] [address] [place] [address], [place] [address] Mar, [facility] [address] [id number] [address] [place] [address], [place] [address] Mar, [facility] [address] [id number] [address] [place] [address], [place] [address] Mar, [facility] [address] [id number] [address] [place] [address], [place] [address] Mar, [facility] [address] [id number] [facility] [address] Feb, [facility] [address] [id number] [facility] [address] Feb, [facility] [address] [id number] [facility] [address] Feb, [facility] [address] [id number] [facility] [address] Feb, [facility] [address] [id number] [facility] [address] Jan, [facility] [address] [id number] [address] [place] [address], [place] [address] Jan, [facility] [address] [id number] [address] [place] [address], [place] [address] Jan, [facility] [address] [id number] [address] [place] [address], [place] [address] Jan, [facility] [address] [id number] [address] [place] [address], [place] [address] Jan, [facility] [address] [id number] [address] [place] [address], [place] [address] Jan, [facility] [address] [id number] [address] [place] [address], [place] [address] Jan, [facility] [address] [id number] [address] [place] [address], [place] [address] Jan, [facility] [address] [id number] [address] [place] [address], [place] [address] Jan, [facility] [address] [id number] [address] [place] [address], [place] [address] Jan, [facility] [address] [id number] [address] [place] [address], [place] [address] December, [facility] [address] [id number] [address] [place] [address], [place] [address] December, [facility] [address] [id number] [facility] [address] December, [facility] [address] [id number] [address] [place] [address], [place] [address] December, [facility] [address] [id number] [address] [place] [address], [place] [address] December, [facility] [address] [id number] [address] [place] [address], [place] [address] Nov, [facility] [address] [id number] [address] [place] [address], [place] [address] Nov, [facility] [address] [id number] [address] [place] [address], [place] [address] Nov, [facility] [address] [id number] [address] [place] [address], [place] [address] Oct, [facility] [address] [id number] [address] [place] [address], [place] [address] Oct, [facility] [address] [id number] [address] [place] [address], [place] [address] Oct, [facility] [address] [id number] [address] [place] [address], [place] [address] Oct, [facility] [address] [id number] [address] [place] [address], [place] [address] Oct, [facility] [address] [id number] [address] [place] [address], [place] [address] Oct, [facility] [address] [id number] [address] [place] [address], [place] [address] Oct, [facility] [address] [id number] [address] [place] [address], [place] [address] Oct, [facility] [address] [id number] [address] [place] [address], [place] [address] Oct, [facility] [address] [id number] [address] [place] [address], [place] [address] Sep, [facility] [address] [id number] [address] [place] [address], [place] [address] Sep, [facility] [address] [id number] [address] [place] [address], [place] [address] Aug, [facility] [address] [id number] [address] [place] [address], [place] [address] Aug, [facility] [address] [id number] [address] [place] [address], [place] [address] Aug, [facility] [address] [id number] [address] [place] [address], [place] [address] Aug, [facility] [address] [id number] [address] [place] [address], [place] [address] Jul, [facility] [address] [id number] [address] [place] [address], [place] [address] Jul, [facility] [address] [id number] [address] [place] [address], [place] [address] Jul, [facility] [address] [id number] [address] [place] [address], [place] [address] Jul, [facility] [address] [id number] [address] [place] [address], [place] [address] Jun, [facility] [address] [id number] [address] [place] [address], [place] [address] Jun, [facility] [address] [id number] [address] [place] [address], [place] [address] Jun, [facility] [address] [id number] [address] [place] [address], [place] [address] Jun, [facility] [address] [id number] [address] [place] [address], [place] [address] May, [facility] [address] [id number] [address] [place] [address], [place] [address] May, [facility] [address] [id number] [address] [place] [address], [place] [address] May, [facility] [address] [id number] [address] [place] [address], [place] [address] May, [facility] [address] [id number] [address] [place] [address], [place] [address] May, [facility] [address] [id number] [address] [place] [address], [place] [address] May, [facility] [address] [id number] [address] [place] [address], [place] [address] Apr, [facility] [address] [id number] [address] [place] [address], [place] [address] Mar, [facility] [address] [id number] [address] [place] [address], [place] [address] Mar, [facility] [address] [id number] [address] [place] [address], [place] [address] Mar, [facility] [address] [id number] [address] [place] [address], [place] [address] Feb, [facility] [address] [id number] [address] [place] [address], [place] [address] Feb, [facility] [address] [id number] [address] [place] [address], [place] [address] Feb, [facility] [address] [id number] [address] [place] [address], [place] [address] Jan, [facility] [address] [id number] [address] [place] [address], [place] [address] Jan, [facility] [address] [id number] [address] [place] [address], [place] [address] December, [facility] [address] [id number] [address] [place] [address], [place] [address] December, [facility] [address] [id number] [address] [place] [address], [place] [address] December, [facility] [address] [id number] [address] [place] [address], [place] [address] 29 Nov, 2012 [facility] [address] [id number] [address] [place] [address], [place] [address] 24 Nov, 2012 [facility] [address] [id number] [address] [place] [address], [place] [address] Nov, [facility] [address] [id number] [address] [place] [address], [place] [address] 2012 [facility] [address] [id number] [address] [place] [address], [place] [address] 15 Nov, 2012 [facility] [address] [id number] [address] [place] [address], [place] [address] 05 Nov, 2012 [facility] [address] [id number] [address] [place] [address], [place] [address] Oct, [facility] [address] [id number] [address] [place] [address], [place] [phone] 14 Oct, 2012 [facility] [address] [id number] [address] [place] [address], [place] [phone] Oct, [facility] [address] [id number] [address] [place] [address], [place] [phone] Oct, [facility] [address] [id number] [address] [place] [address], [place] [phone] 28 Sep, 2012 [facility] [address] [id number] [address] [place] [address], [place] [phone] Sep, [facility] [address] [id number] [address] [place] [address], [place] [phone] 18 Sep, 2012 [facility] [address] [id number] [address] [place] [address], [place] [phone] Sep, [facility] [address] [id number] [address] [place] [address], [place] [phone] Sep, [facility] [address] [id number] [address] [place] [phone] Aug, [facility] [address] [id number] [address] [place] [phone] Aug, [facility] [address] [id number] [address] [place] [phone] Aug, [facility] [address] [id number] [address] [place] [phone] Aug, [facility] [address] [id number] [address] [place] [phone] Aug, [facility] [address] [id number] [address] [place] [phone] Aug, [facility] [address] [id number] [address] [place] [phone] May, [facility] [address] [id number] [address] [place] [phone] May, IMMUNIZATIONS No Known Immunizations SOCIAL HISTORY Never Assessed REASON FOR VISIT EMR[facility] [place] OF CARE VITAL SIGNS MEDICATIONS Unknown Medications RESULTS No Results PROCEDURES No Known procedures INSTRUCTIONS MEDICATIONS ADMINISTERED No Known Medications MEDICAL (GENERAL) HISTORY Type Description Date Medical History type I diabetes Medical History hx of MRSA infections Medical History depression Medical History anxiety Surgical History [facility] Hospitalization History MRSA 2003
--- OUTSIDE RECORDS SUMMARY | 2020-01-16 00:25 | XMS REPORT ---
Author Darien Longo Organization [employer] Address Unknown Phone Unavailable Care Team Providers Care Ad Operations Specialist Name Role Phone CHRISTOPHER VILLALOBOS CP Unavailable Allergies No Known Allergies Problems Problem Type Condition Code Onset Dates Condition Statu s Problem Type 1 diabetes mellitus with hyperglycemia E10.65 Active Problem Type 2 diabetes mellitus with hyperglycemia E11.65 Active Problem Type 1 diabetes mellitus with diabetic polyneuropathy E10.42 Active Problem Diabetes type 1, controlled E10.9 Active Medications Medication Code System Code Instructions Start Date End Date Status Dosage Levemir Flexpen [facility] [address]-93 100 unit/mL (3 mL) Once a d ay January 30, 2014 40 Unit by Subcutaneous rout e 1 time per day GlucaGen HypoKit [facility] [address]-42 1 MG May 12, 2014 1 time per day PRN use as directed for hypoglycemia NovoLog Flexpen [facility] [address]-04 100 UNIT/ML Subcutaneous 3 times a day May 07, 2014 inject 15 Units by S ubcutaneous route before meals 3 times per day Results No Known Results Summary Purpose [employer] Submission
--- OUTSIDE RECORDS SUMMARY | 2020-01-16 00:25 | XMS REPORT ---
Author Author Darien Guerra Doctor Organization [facility] Address Unknown Phone Unavailable Care Team Providers Care Climatology Professor Name Role Phone Migration, Doctor Unavailable Unavailable PROBLEMS Type Condition ICD9-CM Code SVB21-DN Code Onset Dates Condition S tatus SNOMED Code Problem Diabetes type 1, controlled E10.9 Ac tive 70540995 Problem Type 2 diabetes mellitus with hyperglycemia E11.65 Active [id number] Problem Other chronic pain G89.29 Active 8 6585936 Problem Schizoaffective disorder, depressive type F25.1 Active 67653334 Problem Type 1 diabetes mellitus with hyperglycemia E10.65 Active [id number] Problem Type 1 diabetes mellitus with diabetic polyneuropathy E10.42 Active 23304754 Problem Mood disorder F39 Active 657712 05 Problem Uncontrolled type 1 diabetes mellitus without complication E10.9 Active [id number] ALLERGIES No Information ENCOUNTERS Encounter Location Date Diagnosis [facility] [address] [id number] [address] [place] [phone] December, [facility] [address] [id number] [address] [place] [id number] Nov, [facility] [address] [id number] [address] [place] [id number] 14 Nov, 2016 Uncontrolled type 1 diabetes mellitus without complication E10.9 [facility] [address] [id number] [address] [place] [id number] 13 Nov, 2016 Impingement syndrome, should er, right M75.41 and Adhesive capsulitis of right shoulder M75.01 [facility] [address] [id number] [address] [place] [id number] 03 Nov, 2016 Uncontrolled type 1 diabetes mellitus without complication E10.9 [facility] [address] [id number] [address] [place] [id number] Oct, Uncontrolled type 1 diabetes mellitus without complication E10.9 ; Other chronic pain G89.29 ; Pain in right shoulder M25.511 and Schizoaffective disorder, depressive type F25.1 [facility] [address] [id number] [address] [place] [id number] May, Mood disorder F39 and Contro lled diabetes mellitus type 1 without complications E10.9 [facility] [address] [id number] [address] [place] [id number] May, [facility] [address] [id number] [address] [place] [address] May, [facility] [address] [id number] [address] [place] [id number] Apr, Mood disorder F39 ; 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 and Type 1 diabetes mellitus with hyperglycemia E10.65 [facility] [address] [id number] [address] [place] [address] Apr, Mood disorder F39 [facility] [address] [id number] [address] [place] [id number] Mar, [facility] [address] [id number] [address] [place] [phone] Feb, [facility] [address] [id number] [address] [place] [id number] Jan, [facility] [address] [id number] [address] [place] [phone] Jan, [facility] [address] [id number] [address] [place] [phone] Jan, [facility] [address] [id number] [address] [place] [id number] December, [facility] [address] [facility] [id number] [address] [place] [address] December, 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 and Controlled type 1 diabetes mellitus with diabetic neuropathy, with long-term current use of insulin E10.40 [facility] [address] [facility] [id number] [address] [place] [address] December, Schizo-affective schizophren ia F25.0 [facility] [address] [facility] [id number] [address] [place] [phone] Nov, [facility] [address] [facility] [id number] [address] [place] [id number] Nov, Anxiety disorder, unspecifie d F41.9 and Schizo-affective schizophrenia F25.0 [facility] [address] [facility] [id number] [address] [place] [id number] Nov, Schizo-affective schizophren ia F25.0 [facility] [address] [facility] [id number] [address] [place] [phone] Oct, [facility] [address] [id number] [address] [place] [phone] Sep, [facility] [address] [id number] [address] [place] [phone] Sep, [facility] [address] [facility] [id number] [address] [place] [address] Sep, [facility] [address] [id number] [address] [place] [address] Aug, [facility] [address] [id number] [address] [place] [address] Aug, [facility] [address] [id number] [address] [place] [address] Jul, [facility] [address] [id number] [address] [place] [address] Jul, Diabetes type 1, controlled E10.9 [facility] [address] [id number] [address] [place] [address] Jun, Diabetes mellitus without me ntion of complication, type II or unspecified type, uncontrolled 250.02 [facility] [address] [id number] [address] [place] [address] Jun, Diabetes type 1, controlled E10.9 [place] [address] [address] May, Diabetes mellitus without me ntion of complication, type II or unspecified type, uncontrolled 250.02 [place] [address] [address] May, Anxiety 300.00 [place] [address] [address] May, Diabetes type 1, controlled E10.9 ; Schizo-affective schizophrenia F25.0 ; Mood disorder F39 and Bipolar 1 disorder F31.9 [place] [address] [address] May, [place] [address] [address] May, Anxiety F41.9 and Depression F32.9 [place] [address] [address] Apr, Diabetes mellitus without me ntion of complication, type II or unspecified type, uncontrolled 250.02 [place] [address] [address] Apr, Anxiety 300.00 and Diabetes mellitus without mention of complication, type II or unspecified type, uncontrolled 250.02 [place] [address] [address] Apr, [place] [address] [address] Apr, Anxiety 300.00 and Depressio n 311 [place] [address] [address] Apr, Major depression, recurrent 296.30 ; Anxiety, generalized 300.02 and No condition on [place] II V71.09 [place] [address] [address] Apr, [facility] [address] [id number] [address] [place] [address] Mar, Diabetes mellitus without me ntion of complication, type II or unspecified type, uncontrolled 250.02 and Anxiety 300.00 [facility] [address] [id number] [address] [place] [phone] Mar, [facility] [address] [id number] [address] [place] [phone] Feb, [facility] [address] [id number] [address] [place] [phone] Feb, [facility] [address] [id number] [address] [place] [address] Feb, [facility] [address] [id number] [address] [place] [phone] Jan, [facility] [address] [id number] [address] [place] [phone] Jan, [facility] [address] [id number] [address] [place] [phone] Jan, [facility] [address] [id number] [address] [place] [phone] Jan, [facility] [address] [id number] [address] [place] [address] December, [facility] [address] [id number] [address] [place] [id number] December, Dental examination V72.2 [facility] [address] [id number] [address] [place] [id number] December, Tooth pain 525.9 [facility] [address] [id number] [address] [place] [address] December, [facility] [address] [id number] [address] [place] [address] Nov, [facility] [address] [id number] [address] [place] [address], [place] [address] Nov, [facility] [address] [id number] [address] [place] [address], [place] [address] Oct, [facility] [address] [id number] [address] [place] [address], [place] [address] Oct, [facility] [address] [id number] [address] [place] [address], [place] [address] Sep, [facility] [address] [id number] [address] [place] [address], [place] [address] Sep, [facility] [address] [id number] [address] [place] [address], [place] [address] Sep, [facility] [address] [id number] [address] [place] [address], [place] [address] Sep, [facility] [address] [id number] [address] [place] [address], [place] [address] Aug, [facility] [address] [id number] [address] [place] [address], [place] [address] Aug, [facility] [address] [id number] [address] [place] [address], [place] [address] Aug, [facility] [address] [id number] [address] [place] [address], [place] [address] Aug, [facility] [address] [id number] [address] [place] [address], [place] [address] Jul, [facility] [address] [id number] [address] [place] [address], [place] [address] Jul, [facility] [address] [id number] [address] [place] [address], [place] [address] Jun, [facility] [address] [id number] [address] [place] [address], [place] [address] Jun, [facility] [address] [id number] [address] [place] [address], [place] [address] May, [facility] [address] [id number] [address] [place] [address], [place] [address] May, [facility] [address] [id number] [address] [place] [address], [place] [address] May, [facility] [address] [id number] [address] [place] [address], [place] [address] May, [facility] [address] [id number] [address] [place] [address], [place] [address] May, [facility] [address] [id number] [address] [place] [address], [place] [address] May, [facility] [address] [id number] [address] [place] [address], [place] [address] Apr, [facility] [address] [id number] [address] [place] [address], [place] [address] Apr, [facility] [address] [id number] [address] [place] [address], [place] [address] Apr, [facility] [address] [id number] [address] [place] [address], [place] [address] Apr, [facility] [address] [id number] [address] [place] [address], [place] [address] Apr, [facility] [address] [id number] [address] [place] [address], [place] [address] Apr, [facility] [address] [id number] [address] [place] [address], [place] [address] Mar, [facility] [address] [id number] [address] [place] [address], [place] [address] Mar, [facility] [address] [id number] [address] [place] [address], [place] [address] Mar, [facility] [address] [id number] [address] [place] [address], [place] [address] Mar, [facility] [address] [id number] [facility] [place] [address] Feb, [facility] [address] [id number] [facility] [place] [address] Feb, [facility] [address] [id number] [facility] [place] [address] Feb, [facility] [address] [id number] [facility] [place] [address] Feb, [facility] [address] [id number] [facility] [place] [address] Jan, [facility] [address] [id number] [address] [place] [address], [place] [address] Jan, [facility] [address] [id number] [address] [place] [address], [place] [address] Jan, [facility] [address] [id number] [address] [place] [address], [place] [address] Jan, [facility] [address] [id number] [address] [place] [address], [place] [address] Jan, [facility] [address] [id number] [address] [place] [address], [place] [address] Jan, [facility] [address] [id number] [address] [place] [address], [place] [address] Jan, [facility] [address] [id number] [address] [place] [address], [place] [address] Jan, [facility] [address] [id number] [address] [place] [address], [place] [address] Jan, [facility] [address] [id number] [address] [place] [address], [place] [address] Jan, [facility] [address] [id number] [address] [place] [address], [place] [address] December, [facility] [address] [id number] [address] [place] [address], [place] [address] December, [facility] [address] [id number] [facility] [place] [address] December, [facility] [address] [id number] [address] [place] [address], [place] [address] December, [facility] [address] [id number] [address] [place] [address], [place] [address] December, [facility] [address] [id number] [address] [place] [address], [place] [address] Nov, [facility] [address] [id number] [address] [place] [address], [place] [address] Nov, [facility] [address] [id number] [address] [place] [address], [place] [address] Nov, [facility] [address] [id number] [address] [place] [address], [place] [address] Oct, [facility] [address] [id number] [address] [place] [address], [place] [address] Oct, [facility] [address] [id number] [address] [place] [address], [place] [address] Oct, [facility] [address] [id number] [address] [place] [address], [place] [address] Oct, [facility] [address] [id number] [address] [place] [address], [place] [address] Oct, [facility] [address] [id number] [address] [place] [address], [place] [address] Oct, [facility] [address] [id number] [address] [place] [address], [place] [address] Oct, [facility] [address] [id number] [address] [place] [address], [place] [address] Oct, [facility] [address] [id number] [address] [place] [address], [place] [address] Oct, [facility] [address] [id number] [address] [place] [address], [place] [address] Sep, [facility] [address] [id number] [address] [place] [address], [place] [address] Sep, [facility] [address] [id number] [address] [place] [address], [place] [address] Aug, [facility] [address] [id number] [address] [place] [address], [place] [address] Aug, [facility] [address] [id number] [address] [place] [address], [place] [address] Aug, [facility] [address] [id number] [address] [place] [address], [place] [address] Aug, [facility] [address] [id number] [address] [place] [address], [place] [address] Jul, [facility] [address] [id number] [address] [place] [address], [place] [address] Jul, [facility] [address] [id number] [address] [place] [address], [place] [address] Jul, [facility] [address] [id number] [address] [place] [address], [place] [address] Jul, [facility] [address] [id number] [address] [place] [address], [place] [address] Jun, [facility] [address] [id number] [address] [place] [address], [place] [address] Jun, [facility] [address] [id number] [address] [place] [address], [place] [address] Jun, [facility] [address] [id number] [address] [place] [address], [place] [address] Jun, [facility] [address] [id number] [address] [place] [address], [place] [address] May, [facility] [address] [id number] [address] [place] [address], [place] [address] May, [facility] [address] [id number] [address] [place] [address], [place] [address] May, [facility] [address] [id number] [address] [place] [address], [place] [address] May, [facility] [address] [id number] [address] [place] [address], [place] [address] May, [facility] [address] [id number] [address] [place] [address], [place] [address] May, [facility] [address] [id number] [address] [place] [address], [place] [address] Apr, [facility] [address] [id number] [address] [place] [address], [place] [address] Mar, [facility] [address] [id number] [address] [place] [address], [place] [address] Mar, [facility] [address] [id number] [address] [place] [address], [place] [address] Mar, [facility] [address] [id number] [address] [place] [address], [place] [address] Feb, [facility] [address] [id number] [address] [place] [address], [place] [address] Feb, [facility] [address] [id number] [address] [place] [address], [place] [address] Feb, [facility] [address] [id number] [address] [place] [address], [place] [address] Jan, [facility] [address] [id number] [address] [place] [address], [place] [address] Jan, [facility] [address] [id number] [address] [place] [address], [place] [address] December, [facility] [address] [id number] [address] [place] [address], [place] [address] December, [facility] [address] [id number] [address] [place] [address], [place] [address] December, [facility] [address] [id number] [address] [place] [address], [place] [address] 29 Nov, 2012 [facility] [address] [id number] [address] [place] [address], [place] [address] 24 Nov, 2012 [facility] [address] [id number] [address] [place] [address], [place] [address] Nov, [facility] [address] [id number] [address] [place] [address], [place] [address] 2012 [facility] [address] [id number] [address] [place] [address], [place] [address] 15 Nov, 2012 [facility] [address] [id number] [address] [place] [address], [place] [address] 05 Nov, 2012 [facility] [address] [id number] [address] [place] [address], [place] [id number] Oct, [facility] [address] [id number] [address] [place] [address], [place] [id number] 14 Oct, 2012 [facility] [address] [id number] [address] [place] [address], [place] [id number] Oct, [facility] [address] [id number] [address] [place] [address], [place] [phone] Oct, [facility] [address] [id number] [address] [place] [address], [place] [phone] 28 Sep, 2012 [facility] [address] [id number] [address] [place] [address], [place] [phone] Sep, [facility] [address] [id number] [address] [place] [address], [place] [id number] 18 Sep, 2012 [facility] [address] [id number] [address] [place] [address], [place] [id number] Sep, [facility] [address] [id number] [address] [place] [address], [place] [id number] Sep, [facility] [address] [id number] [address] [place] [phone] Aug, [facility] [address] [id number] [address] [place] [phone] Aug, [facility] [address] [id number] [address] [place] [phone] Aug, [facility] [address] [id number] [address] [place] [phone] Aug, [facility] [address] [id number] [address] [place] [phone] Aug, [facility] [address] [id number] [address] [place] [phone] Aug, [facility] [address] [id number] [address] [place] [phone] May, [facility] [address] [id number] [address] [place] [phone] May, IMMUNIZATIONS No Known Immunizations SOCIAL HISTORY Never Assessed REASON FOR VISIT EMR-[facility] PLAN OF CARE VITAL SIGNS MEDICATIONS Unknown Medications RESULTS No Results PROCEDURES No Known procedures INSTRUCTIONS MEDICATIONS ADMINISTERED No Known Medications MEDICAL (GENERAL) HISTORY Type Description Date Medical History type I diabetes Medical History hx of MRSA infections Medical History depression Medical History anxiety Surgical History [facility] Hospitalization History MRSA 2003
--- OUTSIDE RECORDS SUMMARY | 2020-01-16 00:25 | XMS REPORT ---
Author Darien Longo Organization [employer] Address Unknown Phone Unavailable Care Team Providers Care Digital Marketing Executive Name Role Phone CHRISTOPHER VILLALOBOS CP Unavailable Allergies No Known Allergies Problems Problem Type Condition Code Onset Dates Condition Statu s Assessment Diabetes mellitus without me ntion of complication, type II or unspecified type, uncontrolled 250.02 Active Problem Diabetes type 1, controlled E10.9 Active Medications Medication Code System Code Instructions Start Date End Date Status Dosage Adderall XR [facility] [address]-66 30 MG 2 times a day October 29, 2014 1 capsule Results No Known Results Summary Purpose [employer] Submission
--- OUTSIDE RECORDS SUMMARY | 2020-01-16 00:25 | XMS REPORT ---
Author Author Darien VILLALOBOS Organization [employer] Address Unknown Phone Unavailable Care Team Providers Care Sole Stapler [place] Name Role Phone CHRISTOPHER VILLALOBOS CP Unavailable Allergies No Known Allergies Problems Problem Type Condition Code Onset Dates Condition Statu s Problem Diabetes type 1, controlled E10.9 Active Medications Medication Code System Code Instructions Start Date End Date Status Dosage Adderall XR [facility] [address]-80 30 MG 2 times a day October 29, 2014 1 capsule Results No Known Results Summary Purpose [employer] Submission
--- OUTSIDE RECORDS SUMMARY | 2020-01-16 00:25 | XMS REPORT ---
Author Author Darien VILLALOBOS Organization [employer] Address Unknown Phone Unavailable Care Team Providers Care [employer]orer [employer] Name Role Phone CHRISTOPHER VILLALOBOS CP Unavailable Allergies No Known Allergies Problems Problem Type Condition Code Onset Dates Condition Statu s Problem Diabetes type 1, controlled E10.9 Active Problem Type 2 diabetes mellitus with hyperglycemia E11.65 Active Medications No Known Medications Results No Known Results Summary Purpose [employer] Submission
--- OUTSIDE RECORDS SUMMARY | 2020-01-16 00:25 | XMS REPORT ---
Author Author Darien VILLALOBOS Organization [employer] Address Unknown Phone Unavailable Care Team Providers Care Bundle Helper Name Role Phone CHRISTOPHER VILLALOBOS CP Unavailable [...] Problem Unspecified episodic mood disorder 296.90 Active Assessment Diabetes mellitus without me ntion of complication, type II or unspecified type, uncontrolled 250.02 Active Problem Diabetes mellitus without me ntion [...] XR [facility] [address]-47 30 MG 2 times a day October 29, 2014 1 capsule Results No Known Results Summary Purpose [employer] Submission
--- OUTSIDE RECORDS SUMMARY | 2020-01-16 00:26 | XMS REPORT ---
Author Author Darien VILLALOBOS Organization [facility] Address [address] [place] [address] Care Team Providers Care Z Os Mainframe Systems Programmer Name Role Phone CHRISTOPHER VILLALOBOS Unavailable PROBLEMS Type Condition ICD9-CM Code [id number] Code Onset Dates Condition S tatus SNOMED Code Problem Type 2 diabetes mellitus with hyperglycemia E11.65 Active 938867457900793 Problem Diabetes type 1, controlled E10.9 Ac tive 68739679 Problem Schizoaffective disorder, depressive type F25.1 Active 39516690 Problem Other chronic pain G89.29 Active 8 7064515 Problem Type 1 diabetes mellitus with diabetic polyneuropathy E10.42 Active 46521697 Problem Type 1 diabetes mellitus with hyperglycemia E10.65 Active 003667637783204 Problem Uncontrolled type 1 diabetes mellitus without complication E10.9 Active 085290756 Problem Mood disorder F39 Active 990999 05 ALLERGIES No Known Allergies SOCIAL HISTORY Never Assessed PLAN OF CARE VITAL SIGNS Height 69 in 2016-10-21 Weight 168.4 lbs 2016-10-21 Temperature 97.5 degrees Fahrenheit 2016-10-21 Heart Rate 92 bpm 2016-10-21 Respiratory Rate 18 2016-10-21 BMI 24.87 kg/m2 2016-10-21 Blood pressure systolic 128 mmHg 2016-10-21 Blood pressure diastolic 86 mmHg 2016-10-21 MEDICATIONS Medication Instructions Dosage Frequency Start Date End Date Duration S tatus Risperdal 4 MG Orally 2 times a day 1 tablet 12h December, Active Tramadol HCl 50 mg Orally every 6 hrs 1 tablet as needed 6h Oct, Active Levemir Flexpen 100 unit/mL (3 mL) 40 Un it by Subcutaneous route 1 time per day 24h Jan, 90 days Active HydrOXYzine HCl 50 mg Orally every 8 hrs 1 tablet as needed 8h 02 S 2015 Active NovoLog Flexpen 100 UNIT/ML Subcutaneous 3 times a day injec t 15 Units by Subcutaneous route before meals 3 times per day 8h 17 Apr, 2014 90 days Active GlucaGen HypoKit 1 MG 1 time per day PRN use as direct ed for hypoglycemia Apr, Active Pen [place] 32 g 32 gauge by Subcutaneous route for us e with flex pens Jan, Active RESULTS Name Result Date Reference Range A1C (IN HOUSE) 2016-10-21 A1C IN HOUSE 11.5 4.3 - 5.6 % Previous A1c 9.3 Lot 0672 Exp date Xray : Shoulder, Right 2 view (IN HOUSE) 2016-10 PROCEDURES Procedure Date Ordered Result Body Site X-RAY EXAM OF SHOULDER October 21, 2016 GLYCATED HEMOGLOBIN TEST October 21, 2016 IMMUNIZATIONS No Known Immunizations MEDICAL (GENERAL) HISTORY Type Description Date Medical History type I diabetes Medical History hx of MRSA infections Medical History depression Medical History anxiety Surgical History [facility] Hospitalization History MRSA 2004
--- OUTSIDE RECORDS SUMMARY | 2020-01-16 00:26 | XMS REPORT ---
Author Darien Longo [facility] [employer] Address Unknown Phone Unavailable Care Team Providers Care Computer Systems Technology Instructor Name Role Phone CHRISTOPHER VILLALOBOS CP Unavailable Allergies, Adverse Reactions, Alerts Substance Reaction Event Type N.K.D.A. Info Not Available Non Drug Allergy Problems Problem Type Condition ICD-9 Code Onset Dates Condition Statu s Problem Diabetes mellitus without me ntion of complication, type I [juvenile type], not stated as uncontrolled 250.01 Active Problem Bipolar I disorder, most rec ent episode (or current) mixed, severe, without mention of psychotic behavior 296.63 Ac tive Problem Unspecified episodic mood disorder 296.90 Active Problem Unspecified arthropathy, site unspecified 716.90 [...] and abscess of unspecified site 682.9 Active Assessment Diabetes mellitus without me ntion of complication, type II or unspecified type, uncontrolled 250.02 Active Assessment Anxiety 300.00 Active Problem Diabetes mellitus without me ntion of complication, type I [juvenile type], uncontrolled 250.03 Active Medications Medication Code System Code Instructions Start Date End Date Status Dosage Risperidone [facility] [address]-24 1 MG 3 times a day 1 tablet NovoLog Flexpen [facility] [address]-18 100 UNIT/ML Subcutaneous 3 times a day May 07, 2014 inject 15 Units by S ubcutaneous route before meals 3 times per day Xanax [facility] [address]-25 1 MG Orally Three times a day Apr 29 5 1 tablet Adderall XR [facility] [address]-71 30 MG 2 times a day October 29, 2014 1 capsule Pen Joseph ND 0 32 g January 30, 2014 32 gau ge by Subcutaneous route for use with flex pens GlucaGen HypoKit [facility] [address]-56 1 MG May 12, 2014 1 time per day PRN use as directed for hypoglycemia Levemir Flexpen [facility] 0 100 unit/mL (3 mL) Once a day January 30, 2014 35 Unit by Subcutaneous route 1 time per day Effexor XR [facility] [address]-71 75 MG Orally Once a day, LEONEL SNEED 1st fill Apr 29, 2015 1 capsule with food Procedures Procedure Coding System Code Date Office Visit, Est Pt., Level 3 CPT-4 30407 S ept 2014 URINALYSIS, AUTO, W/O SCOPE CPT-4 00508 May 11, 2015 Vital Signs Date/Time: May 11, 2015 Temperature 97.7 F Weight 158.1 lbs Height 69 in BMI 23.34 Index Blood Pressure Diastolic 82 mmHg Blood Pressure Systolic 132 mmHg Cardiac Monitoring Heart Rate 92 bpm Results Name Result Date Reference Range Unit Abnormali ty Flag UA LONG DIP (IN HOUSE) Summary Purpose [employer]ClinicalWorks Submission
--- OUTSIDE RECORDS SUMMARY | 2020-01-16 00:26 | XMS REPORT ---
Author Author Darien VILLALOBOS Organization [employer] Address Unknown Phone Unavailable Care Team Providers Care Furnace Door Tender Name Role Phone CHRISTOPHER VILLALOBOS CP Unavailable [...] Instructions Start Date End Date Status Dosage GlucaGen HypoKit [facility] [address]-89 1 MG May 12, 2014 1 time per day PRN use as directed for hypoglycemia Results No Known Results Summary Purpose [employer] Submission
--- OUTSIDE RECORDS SUMMARY | 2020-01-16 00:26 | XMS REPORT | Continuity of Care Document ---
Author Organization Unknown Address Unknown Phone Unavailable Allergies Active Description Code Type Severity Reaction Onset Reported/Identified Relationship to Patient Clinical Status Yes No Known Drug Allergies [id number] Drug Allergy Unknown N/A 12/02/2013 Medications There is no data. Problems Date Dx Coded Attending Type Code Diagnosis Diagnosed By 06/04/2011 CHRISTOPHER VILLALOBOS APRN 250.01 DIABETES MELLITUS WITHOUT MENTION OF COM PLICATION TYPE I [JUVENILE TYPE] NOT STATED UNCONTROLLED 06/04/2011 CHRISTOPHER VILLALOBOS APRN 46 6.0 ACUTE BRONCHITIS 06/04/2011 CHRISTOPHER VILLALOBOS APRN 250.01 DIABETES MELLITUS WITHOUT MENTION OF COM PLICATION TYPE I [JUVENILE TYPE] NOT STATED UNCONTROLLED 06/04/2011 CHRISTOPHER VILLALOBOS APRN 46 6.0 ACUTE BRONCHITIS 06/04/2011 CHRISTOPHER VILLALOBOS APRN 250.01 DIABETES MELLITUS WITHOUT MENTION OF COM PLICATION TYPE I [JUVENILE TYPE] NOT STATED UNCONTROLLED 06/04/2011 CHRISTOPHER VILLALOBOS APRN 46 6.0 ACUTE BRONCHITIS 06/04/2011 CHRISTOPHER VILLALOBOS APRN 250.01 DIABETES MELLITUS WITHOUT MENTION OF COM PLICATION TYPE I [JUVENILE TYPE] NOT STATED UNCONTROLLED 06/04/2011 CHRISTOPHER VILLALOBOS APRN 46 6.0 ACUTE BRONCHITIS 06/04/2011 CHRISTOPHER VILLALOBOS APRN 250.01 Diabetes Mellitus Without Mention Of Com plication Type I [juvenile Type] Not Stated As Uncontrolled 06/04/2011 CHRISTOPHER VILLALOBOS APRN 46 6.0 Acute Bronchitis 06/04/2011 250.01 Noreen betes Mellitus Without Mention Of Complication Type I [juvenile Type] Not Stated As Uncontrolled 06/04/2011 466.0 Acut e Bronchitis 06/04/2011 CHRISTOPHER VILLALOBOS APRN 250.01 Diabetes Mellitus Without Mention Of Com plication Type I [juvenile Type] Not Stated As Uncontrolled 06/04/2011 CHRISTOPHER VILLALOBOS APRN 46 6.0 Acute Bronchitis 06/04/2011 CHRISTOPHER VILLALOBOS APRN 250.01 Diabetes Mellitus Without Mention Of Com plication Type I [juvenile Type] Not Stated As Uncontrolled 06/04/2011 CHRISTOPHER VILLALOBOS APRN 46 6.0 Acute Bronchitis 06/04/2011 WHITE DDS, [place] J 250.01 Diabetes Mellitus Without Mention Of Com plication Type I [juvenile Type] Not Stated As Uncontrolled 06/04/2011 WHITE DDS, [place] J 46 6.0 Acute Bronchitis 06/04/2011 250.01 Noreen betes Mellitus Without Mention Of Complication Type I [juvenile Type] Not Stated As Uncontrolled 06/04/2011 466.0 Acut e Bronchitis 06/04/2011 CHRISTOPHER VILLALOBOS APRN 250.01 Diabetes Mellitus Without Mention Of Com plication Type I [juvenile Type] Not Stated As Uncontrolled 06/04/2011 CHRISTOPHER VILLALOBOS APRN 46 6.0 Acute Bronchitis 06/04/2011 CHRISTOPHER VILLALOBOS APRN 250.01 Diabetes Mellitus Without Mention Of Com plication Type I [juvenile Type] Not Stated As Uncontrolled 06/04/2011 CHRISTOPHER VILLALOBOS APRN 46 6.0 Acute Bronchitis 06/04/2011 CHRISTOPHER VILLALOBOS APRN 250.01 Diabetes Mellitus Without Mention Of Com plication Type I [juvenile Type] Not Stated As Uncontrolled 06/04/2011 CHRISTOPHER VILLALOBOS APRN 46 6.0 Acute Bronchitis 06/04/2011 CHRISTOPHER VILLALOBOS APRN 250.01 Diabetes Mellitus Without Mention Of Com plication Type I [juvenile Type] Not Stated As Uncontrolled 06/04/2011 CHRISTOPHER VILLALOBOS APRN 46 6.0 Acute Bronchitis 06/04/2011 CHRISTOPHER VILLALOBOS APRN 250.01 Diabetes Mellitus Without Mention Of Com plication Type I [juvenile Type] Not Stated As Uncontrolled 06/04/2011 CHRISTOPHER VILLALOBOS APRN 46 6.0 Acute Bronchitis 06/04/2011 NORA BOWMANFCORDELL W 250.01 Diabetes Mellitus Without Mention Of Com plication Type I [juvenile Type] Not Stated As Uncontrolled 06/04/2011 NORA IOANAMF, CORDELL W 466.0 Acute Bronchitis 06/04/2011 CHRISTOPHER VILLALOBOS APRN 250.01 Diabetes Mellitus Without Mention Of Com plication Type I [juvenile Type] Not Stated As Uncontrolled 06/04/2011 CHRISTOPHER VILLALOBOS APRN 46 6.0 Acute Bronchitis 06/04/2011 NORA IOANAMF, CORDELL W 250.01 Diabetes Mellitus Without Mention Of Com plication Type I [juvenile Type] Not Stated As Uncontrolled 06/04/2011 NORA LCMF, CORDELL W 466.0 Acute Bronchitis 06/04/2011 CHRISTOPHER VILLALOBOS APRN T 250.01 Diabetes Mellitus Without Mention Of Com plication Type I [juvenile Type] Not Stated As Uncontrolled 06/04/2011 CHRISTOPHER VILLALOBOS APRN 46 6.0 Acute Bronchitis 06/04/2011 NORA LCMF, CORDELL W 250.01 Diabetes Mellitus Without Mention Of Com plication Type I [juvenile Type] Not Stated As Uncontrolled 06/04/2011 NORA LCMF, CORDELL W 466.0 Acute Bronchitis 06/04/2011 CHRISTOPHER VILLALOBOS APRN T 250.01 Diabetes Mellitus Without Mention Of Com plication Type I [juvenile Type] Not Stated As Uncontrolled 06/04/2011 CHRISTOPHER VILLALOBOS APRN 46 6.0 Acute Bronchitis 06/04/2011 CHRISTOPHER VILLALOBOS APRN 250.01 Diabetes Mellitus Without Mention Of Com plication Type I [juvenile Type] Not Stated As Uncontrolled 06/04/2011 CHRISTOPHER VILLALOBOS APRN 46 6.0 Acute Bronchitis 09/08/2011 CHRISTOPHER VILLALOBOS APRN 68 2.9 CELLULITIS AND ABSCESS OF UNSPECIFIED SITES 09/08/2011 CHRISTOPHER VILLALOBOS APRN T 68 2.9 CELLULITIS AND ABSCESS OF UNSPECIFIED SITES 09/08/2011 CHRISTOPHER VILLALOBOS APRN T 68 2.9 CELLULITIS AND ABSCESS OF UNSPECIFIED SITES 09/08/2011 CHRISTOPHER VILLALOBOS APRN T 68 2.9 CELLULITIS AND ABSCESS OF UNSPECIFIED SITES 09/08/2011 CHRISTOPHER VILLALOBOS APRN T 68 2.9 Cellulitis And Abscess Of Unspecified Sites 09/08/2011 682.9 Cell ulitis And Abscess Of Unspecified Sites 09/08/2011 CHRISTOPHER VILLALOBOS APRN T 68 2.9 Cellulitis And Abscess Of Unspecified Sites 09/08/2011 CHRISTOPHER VILLALOBOS APRN T 68 2.9 Cellulitis And Abscess Of Unspecified Sites 09/08/2011 NALDO LEAVITT, [place] Roman 68 2.9 Cellulitis And Abscess Of Unspecified Sites 09/08/2011 682.9 Cell ulitis And Abscess Of Unspecified Sites 09/08/2011 CHRISTOPHER VILLALOBOS APRN T 68 2.9 Cellulitis And Abscess Of Unspecified Sites 09/08/2011 CHRISTOPHER VILLALOBOS APRN T 68 2.9 Cellulitis And Abscess Of Unspecified Sites 09/08/2011 CHRISTOPHER VILLALOBOS APRN T 68 2.9 Cellulitis And Abscess Of Unspecified Sites 09/08/2011 CHRISTOPHER VILLALOBOS APRN 68 2.9 Cellulitis And Abscess Of Unspecified Sites 09/08/2011 CHRISTOPHER VILLALOBOS APRN T 68 2.9 Cellulitis And Abscess Of Unspecified Sites 09/08/2011 NORA LCMF, CORDELL W 682.9 Cellulitis And Abscess Of Unspecified Sites 09/08/2011 CHRISTOPHER VILLALOBOS APRN 68 2.9 Cellulitis And Abscess Of Unspecified Sites 09/08/2011 NORA LCMF, CORDELL W 682.9 Cellulitis And Abscess Of Unspecified Sites 09/08/2011 CHRISTOPHER VILLALOBOS APRN 68 2.9 Cellulitis And Abscess Of Unspecified Sites 09/08/2011 NORA LCMF, CORDELL W 682.9 Cellulitis And Abscess Of Unspecified Sites 09/08/2011 CHRISTOPHER VILLALOBOS APRN T 68 2.9 Cellulitis And Abscess Of Unspecified Sites 09/08/2011 CHRISTOPHER VILLALOBOS APRN 68 2.9 Cellulitis And Abscess Of Unspecified Sites 09/19/2012 CHRISTOPHER VILLALOBOS APRN 250.03 DIABETES 1 UNCONTROLLED 09/19/2012 CHRISTOPHER IVLLALOBOS APRN 250.03 DIABETES 1 UNCONTROLLED 09/19/2012 CHRISTOPHER VILLALOBOS APRN 250.03 DIABETES 1 UNCONTROLLED 09/19/2012 CHRISTOPHER VILLALOBOS APRN 250.03 DIABETES 1 UNCONTROLLED 09/19/2012 CHRISTOPHER VILLALOBOS APRN 250.03 DIABETES 1 UNCONTROLLED 09/19/2012 250.03 NOREEN BETES MELLITUS TYPE 1 - UNCONTROLLED 09/19/2012 CHRISTOPHER VILLALOBOS APRN 250.03 DIABETES MELLITUS TYPE 1 - UNCONTROLLED 09/19/2012 CHRISTOPHER VILLALOBOS APRN 250.03 DIABETES MELLITUS TYPE 1 - UNCONTROLLED 09/19/2012 NALDO SOLANOS, [place] Roman 250.03 DIABETES MELLITUS TYPE 1 - UNCONTROLLED 09/19/2012 250.03 NOREEN BETES MELLITUS TYPE 1 - UNCONTROLLED 09/19/2012 CHRISTOPHER VILLALOBOS APRN 250.03 DIABETES MELLITUS TYPE 1 - UNCONTROLLED 09/19/2012 CHRISTOPHER VILLALOBOS APRN 250.03 DIABETES MELLITUS TYPE 1 - UNCONTROLLED 09/19/2012 CHRISTOPHER VILLALOBOS APRN 250.03 DIABETES MELLITUS TYPE 1 - UNCONTROLLED 09/19/2012 CHRISTOPHER VILLALOBOS APRN 250.03 DIABETES MELLITUS TYPE 1 - UNCONTROLLED 09/19/2012 CHRISTOPHRE VILLALOBOS APRN 250.03 DIABETES MELLITUS TYPE 1 - UNCONTROLLED 09/19/2012 [facility] 250.03 DIABETES MELLITUS TYPE 1 - UNCONTROLLED 09/19/2012 CHRISTOPHER VILLALOBOS APRN 250.03 DIABETES MELLITUS TYPE 1 - UNCONTROLLED 09/19/2012 NORA LCMF, CORDELL W 250.03 DIABETES MELLITUS TYPE 1 - UNCONTROLLED 09/19/2012 CHRISTOPHER VILLALOBOS APRN 250.03 DIABETES MELLITUS TYPE 1 - UNCONTROLLED 09/19/2012 NORA MF, CORDELL W 250.03 DIABETES MELLITUS TYPE 1 - UNCONTROLLED 09/19/2012 CHRISTOPHER VILLALOBOS APRN 250.03 DIABETES MELLITUS TYPE 1 - UNCONTROLLED 09/19/2012 CHRISTOPHER VILLALOBOS APRN 250.03 DIABETES MELLITUS TYPE 1 - UNCONTROLLED 10/10/2012 CHRISTOPHER VILLALOBOS APRN 30 5.1 TOBACCO ABUSE 10/10/2012 CHRISTOPHER VILLALOBOS APRN 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 10/10/2012 CHRISTOPHER VILLALOBOS APRN 30 5.1 TOBACCO ABUSE 10/10/2012 CHRISTOPHER VILLALOBOS APRN 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 10/10/2012 CHRISTOPHER VILLALOBOS APRN 30 5.1 TOBACCO ABUSE 10/10/2012 CHRISTOPHER VILLALOBOS APRN 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 10/10/[address] PHOTOGRAPHER ABUSE 10/10/2012 314.00 ADH D INATTENTIVE 10/10/2012 CHRISTOPHER VILLALOBOS APRN 30 5.1 TOBACCO ABUSE 10/10/2012 CHRISTOPHER VILLALOBOS APRN 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 10/10/2012 CHRISTOPHER VILLALOBOS APRN 30 5.1 TOBACCO ABUSE 10/10/2012 CHRISTOPHER VILLALOBOS APRN 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 10/10/2012 [place] DDS, [place] J 30 5.1 TOBACCO ABUSE 10/10/2012 [place]DS, [place] J 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 10/10/[address] PHOTOGRAPHER ABUSE 10/10/2012 314.00 ADH D INATTENTIVE 10/10/2012 CHRISTOPHER VILLALOBOS APRN 30 5.1 TOBACCO ABUSE 10/10/2012 CHRISTOPHER VILLALOBOS APRN 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 10/10/2012 CHRISTOPHER VILLALOBOS APRN 30 5.1 TOBACCO ABUSE 10/10/2012 CHRISTOPHER VILLALOBOS APRN 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 10/10/2012 CHRISTOPHER VILLALOBOS APRN 30 5.1 TOBACCO ABUSE 10/10/2012 WILFREDO PETROPHYSICIST, CHRISTOPHER T 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 10/10/2012 CHRISTOPHER VILLALOBOS APRN T 30 5.1 TOBACCO ABUSE 10/10/2012 CHRISTOPHER VILLALOBOS APRN T 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 10/10/2012 CHRISTOPHER VILLALOBOS APRN T 30 5.1 TOBACCO ABUSE 10/10/2012 WILFREDO VIVAR, CHRISTOPHER T 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 10/10/2012 NORA LCMF, CORDELL W 305.1 TOBACCO ABUSE 10/10/2012 NORA LCMF, CORDELL W 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 10/10/2012 CHRISTOPHER VILLALOBOS APRN T 30 5.1 TOBACCO ABUSE 10/10/2012 CHRISTOPHER VILLALOBOS APRN T 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 10/10/2012 NORA LCMF, CORDELL W 305.1 TOBACCO ABUSE 10/10/2012 NORA LCMF, CORDELL W 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 10/10/2012 CHRISTOPHER VILLALOBOS APRN T 30 5.1 TOBACCO ABUSE 10/10/2012 CHRISTOPHER VILLALOBOS APRN T 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 10/10/2012 NORA LCMF, CORDELL W 305.1 TOBACCO ABUSE 10/10/2012 NORA LCMF, CORDELL W 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 10/10/2012 CHRISTOPHER VILLALOBOS APRN T 30 5.1 TOBACCO ABUSE 10/10/2012 CHRISTOPHER VILLALOBOS APRN T 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 10/10/2012 CHRISTOPHER VILLALOBOS APRN T 30 5.1 TOBACCO ABUSE 10/10/2012 CHRISTOPHER VILLALOBOS APRN T 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 11/23/2012 CHRISTOPHER VILLALOBOS APRN T 27 2.4 HYPERLIPIDEMIA 11/23/2012 272.4 HYPE RLIPIDEMIA 11/23/2012 CHRISTOPHER VILLALOBOS APRN T 27 2.4 HYPERLIPIDEMIA 11/23/2012 CHRISTOPHER VILLALOBOS APRN T 27 2.4 HYPERLIPIDEMIA 11/23/2012 WHITE DDS, [place] J 27 2.4 HYPERLIPIDEMIA 11/23/2012 272.4 HYPE RLIPIDEMIA 11/23/2012 CHRISTOPHER VILLALOBOS APRN T 27 2.4 HYPERLIPIDEMIA 11/23/2012 CHRISTOPHER VILLALOBOS APRN T 27 2.4 HYPERLIPIDEMIA 11/23/2012 CHRISTOPHER VILLALOBOS APRN T 27 2.4 HYPERLIPIDEMIA 11/23/2012 CHRISTOPHER VILLALOBOS APRN T 27 2.4 HYPERLIPIDEMIA 11/23/2012 CHRISTOPHER VILLALOBOS APRN 27 2.4 HYPERLIPIDEMIA 11/23/2012 NORA LCMF, CORDELL W 272.4 HYPERLIPIDEMIA 11/23/2012 CHRISTOPHER VILLALOBOS APRN T 27 2.4 HYPERLIPIDEMIA 11/23/2012 NORA LCMF, CORDELL W 272.4 HYPERLIPIDEMIA 11/23/2012 CHRISTOPHER VILLALOBOS APRN T 27 2.4 HYPERLIPIDEMIA 11/23/2012 NORA LCMF, CORDELL W 272.4 HYPERLIPIDEMIA 11/23/2012 CHRISTOPHER VILLALOBOS APRN T 27 2.4 HYPERLIPIDEMIA 11/23/2012 CHRISTOPHER VILLALOBOS APRN T 27 2.4 HYPERLIPIDEMIA 05/24/2013 CHRISTOPHER VILLALOBOS APRN T 250.02 DIABETES II UNCONTROLLED (UNCOMPLICATED) 05/24/2013 CHRISTOPHER VILLALOBOS APRN 716.90 ARTHRITIS/ ARTHROPATHY, UNSPECIFIED 05/24/2013 WH[place] DDS, [place] J 250.02 DIABETES II UNCONTROLLED (UNCOMPLICATED) 05/24/2013 WHITE DDS, [place] J 716.90 ARTHRITIS/ ARTHROPATHY, UNSPECIFIED 05/24/2013 250.02 NOREEN BETES II UNCONTROLLED (UNCOMPLICATED) 05/24/2013 716.90 ART HRITIS/ ARTHROPATHY, UNSPECIFIED 05/24/2013 CHRISTOPHER VILLALOBOS APRN 250.02 DIABETES II UNCONTROLLED (UNCOMPLICATED) 05/24/2013 CHRISTOPHER VILLALOBOS APRN 716.90 ARTHRITIS/ ARTHROPATHY, UNSPECIFIED 05/24/2013 CHRISTOPHER VILLALOBOS APRN T 250.02 DIABETES II UNCONTROLLED (UNCOMPLICATED) 05/24/2013 CHRISTOPHER VILLALOBOS APRN 716.90 ARTHRITIS/ ARTHROPATHY, UNSPECIFIED 05/24/2013 CHRISTOPHER VILLALOBOS APRN 250.02 DIABETES II UNCONTROLLED (UNCOMPLICATED) 05/24/2013 CHRISTOPHER VILLALOBOS APRN 716.90 ARTHRITIS/ ARTHROPATHY, UNSPECIFIED 05/24/2013 CHRISTOPHER VILLALOBOS APRN T 250.02 DIABETES II UNCONTROLLED (UNCOMPLICATED) 05/24/2013 CHRISTOPHER VILLALOBOS APRN 716.90 ARTHRITIS/ ARTHROPATHY, UNSPECIFIED 05/24/2013 CHRISTOPHER VILLALOBOS APRN T 250.02 DIABETES II UNCONTROLLED (UNCOMPLICATED) 05/24/2013 CHRISTOPHER VILLALOBOS APRN T 716.90 ARTHRITIS/ ARTHROPATHY, UNSPECIFIED 05/24/2013 NORA LCMF, CORDELL W 250.02 DIABETES II UNCONTROLLED (UNCOMPLICATED) 05/24/2013 NORA LCMF, CORDELL W 716.90 ARTHRITIS/ ARTHROPATHY, UNSPECIFIED 05/24/2013 CHRISTOPHER VILLALOBOS APRN T 250.02 DIABETES II UNCONTROLLED (UNCOMPLICATED) 05/24/2013 CHRISTOPHER VILLALOBOS APRN T 716.90 ARTHRITIS/ ARTHROPATHY, UNSPECIFIED 05/24/2013 NORA IOANAMF, CORDELL W 250.02 DIABETES II UNCONTROLLED (UNCOMPLICATED) 05/24/2013 NORA LCMF, CORDELL W 716.90 ARTHRITIS/ ARTHROPATHY, UNSPECIFIED 05/24/2013 CHRISTOPHER VILLALOBOS APRN 250.02 DIABETES II UNCONTROLLED (UNCOMPLICATED) 05/24/2013 CHRISTOPHER VILLALOBOS APRN 716.90 ARTHRITIS/ ARTHROPATHY, UNSPECIFIED 05/24/2013 NORA IOANAMF, CORDELL W 250.02 DIABETES II UNCONTROLLED (UNCOMPLICATED) 05/24/2013 NORA IOANAMF, CORDELL W 716.90 ARTHRITIS/ ARTHROPATHY, UNSPECIFIED 05/24/2013 CHRISTOPHER VILLALOBOS APRN 250.02 DIABETES II UNCONTROLLED (UNCOMPLICATED) 05/24/2013 CHRISTOPHER VILLALOBOS APRN 716.90 ARTHRITIS/ ARTHROPATHY, UNSPECIFIED 05/24/2013 CHRISTOPHER VILLALOBOS APRN T 250.02 DIABETES II UNCONTROLLED (UNCOMPLICATED) 05/24/2013 CHRISTOPHER VILLALOBOS APRN 716.90 ARTHRITIS/ ARTHROPATHY, UNSPECIFIED 09/16/2013 CHRISTOPHER VILLALOBOS APRN T 250.01 DIABETES 1 CONTROLLED 09/16/2013 CHRISTOPHER VILLALOBOS APRN T 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 09/16/2013 CHRISTOPHER VILLALOBOS APRN T 250.01 DIABETES 1 CONTROLLED 09/16/2013 CHRISTOPHER VILLALOBOS APRN 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 09/16/2013 CHRISTOPHER VILLALOBOS APRN T 250.01 DIABETES 1 CONTROLLED 09/16/2013 CHRISTOPHER VILLALOBOS APRN T 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 09/16/2013 NORA IOANAF, CORDELL W 250.01 DIABETES 1 CONTROLLED 09/16/2013 NORA IOANAMF, CORDELL W 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 09/16/2013 CHRISTOPHER VILLALOBOS APRN T 250.01 DIABETES 1 CONTROLLED 09/16/2013 CHRISTOPHER VILLALOBOS APRN T 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 09/16/2013 NORA LCMF, CORDELL W 250.01 DIABETES 1 CONTROLLED 09/16/2013 NORA IOANAMF, CORDELL W 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 09/16/2013 WILFREDO VIVAR CHRISTOPHER T 250.01 DIABETES 1 CONTROLLED 09/16/2013 WILFREDO VIVAR, CHRISTOPHER T 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 09/16/2013 NORA IOANAMF, CORDELL W 250.01 DIABETES 1 CONTROLLED 09/16/2013 NORA IOANAMF, CORDELL W 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 09/16/2013 WILFREDO OLSENN, CHRISTOPHER T 250.01 DIABETES 1 CONTROLLED 09/16/2013 WILFREDO OLSENN, CHRISTOPHER T 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 09/16/2013 WILFREDO OLSENN, CHRISTOPHER T 250.01 DIABETES 1 CONTROLLED 09/16/2013 WILFREDO OLSENN, CHRISTOPHER T 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 10/16/2013 WILFREDO VIVAR, CHRISTOPHER T 296.90 MOOD DISORDER 10/16/2013 WILFREDO VIVAR, CHRISTOPHER T 296.90 MOOD DISORDER 10/16/2013 NORA LCMF, CORDELL W 296.90 MOOD DISORDER 10/16/2013 CHRISTOPHER VILLALOBOS APRN T 296.90 MOOD DISORDER 10/16/2013 NORA LCMF, CORDELL W 296.90 MOOD DISORDER 10/16/2013 CHRISTOPHER VILLALOBOS APRN T 296.90 MOOD DISORDER 10/16/2013 NORA LCMF, CORDELL W 296.90 MOOD DISORDER 10/16/2013 WILFREDO VIVAR, CHRISTOPHER T 296.90 MOOD DISORDER 10/16/2013 WILFREDO VIVAR, CHRISTOPHER T 296.90 MOOD DISORDER 12/02/2013 TURNER SOOD DO Ot 305.70 AMPHETAMINE ABUSE-UNSPEC 12/02/2013 TURNER SOOD DO Ot 789.09 ABDOMINAL PAIN, OTHER SPECIFIED SITE 01/24/2014 NORA IOANAMF, CORDELL W 295.70 P SCHIZO AFFECTIVE 01/24/2014 CHRISTOPHER VILLALOBOS APRN T 295.70 P SCHIZO AFFECTIVE 01/24/2014 NORA IOANAMF, CORDELL W 295.70 P SCHIZO AFFECTIVE 01/24/2014 CHRISTOPHER VILLALOBOS APRN T 295.70 P SCHIZO AFFECTIVE 01/24/2014 NORA IOANAMF, CORDELL W 295.70 P SCHIZO AFFECTIVE 01/24/2014 CHRISTOPHER VILLALOBOS APRN T 295.70 P SCHIZO AFFECTIVE 01/24/2014 CHRISTOPHER VILLALOBOS APRN T 295.70 P SCHIZO AFFECTIVE 03/14/2014 NORA LCMF, CORDELL W 296.63 MO BIPOLAR I MIXED SEVERE W/O PSYCHOTIC BEHAVIOR 03/14/2014 CHRISTOPHER VILLALOBOS APRN 296.63 MO BIPOLAR I MIXED SEVERE W/O PSYCHOTIC BEHAVIOR 03/14/2014 CHRISTOPHER VILLLAOBOS APRN 296.63 MO BIPOLAR I MIXED SEVERE W/O PSYCHOTIC BEHAVIOR 02/10/2016 SERA PRUITT MD Ot D72.829 ELEVATED WHITE BLOOD CELL COUNT, UNSPECI 02/10/2016 SERA PRUITT MD Ot E10.649 TYPE 1 DIABETES MELLITUS WITH HYPOGLYCEM 02/10/2016 SERA PRUITT MD Ot E86 .1 HYPOVOLEMIA 02/10/2016 SERA PRUITT MD Ot F17.210 NICOTINE DEPENDENCE, CIGARETTES, UNCOMPL 02/10/2016 SERA PRUITT MD Ot F25 .0 SCHIZOAFFECTIVE DISORDER, BIPOLAR TYPE 02/10/2016 SERA PRUITT MD Ot T38.3X2A POISN BY INSULIN AND ORAL HYPOGLYCEMIC D 02/10/2016 SERA PRUITT MD Ot Z79 .4 MCC (CURRENT) USE OF INSULIN Procedures Code Description [place] [address] A1C (IN-HOUSE) 09/19/2012 95342 ROUT INE VENIPUNCTURE 09/21/2012 18620 MICR O ALBUMIN-IN HOUSE 09/21/2012 94646 CBC 09/21/2012 76813 LIPI D PANEL 09/21/2012 66851 CMP 09/21/2012 3284554 GF R CALC (RESULT ONLY) 09/21/2012 00230 A1C (IN-HOUSE) 12/24/2012 02509 A1C (IN-HOUSE) 05/24/2013 69382 ROUT INE VENIPUNCTURE 05/27/2013 27603 CBC 05/27/2013 38341 CMP 05/27/2013 16264 LIPI D PANEL 05/27/2013 3824146 GF R CALC (RESULT ONLY) 05/27/2013 31127 RA FACTOR 05/27/2013 22645 MICR O ALBUMIN-IN HOUSE 09/16/2013 80789 A1C (IN-HOUSE) 09/16/2013 28264 PSYC H DIAGNOSTIC EVALUATION 01/24/2014 36492 A1C (IN-HOUSE) 02/03/2014 28757 PSYT X PT&/FAMILY 45 MINUTES 02/17/2014 86641 PSYT X PT&/FAMILY 30 MINUTES 03/14/2014 83968 PSYT X PT&/FAMILY 30 MINUTES 03/26/2014 33777 PSYT X PT&/FAMILY 30 MINUTES 03/28/2014 83947 PSYT X PT&/FAMILY 30 MINUTES 03/28/2014 00073 A1C (IN-HOUSE) 05/21/2014 Results There is no data. Encounters ACCT No. Visit Date/Time Discharge Status Pt. Type Provider Facility Loc./Unit Complaint [id number] 07/12/2019 13:40:00 07/12/2019 23:59: 59 CLS Outpatient MURIEL SOLER[facility] [id number] 02/10/2016 02:18:00 016 16:58:00 DIS Inpatient EDMOND SOLER, SERA [facility] ICU SUICIDE ATTEMPT,INSULIN OVERDOSE,HYPERGLYCEMIA [id number] 12/02/2013 12:16:00 014 15:02:00 DIS Emergency BARRIE DO, TURNER [facility] ER ABDOMINAL PAIN [id number] 09/05/2014 11:09:00 09/05/2014 23:59: 59 CLS Outpatient CHRISTOPHER VILLALOBOS APRN [id number] 05/21/2014 09:59:00 05/21/2014 23:59: 59 CLS Outpatient CHRISTOPHER VILLALOBOS APRN [id number] 03/14/2014 15:22:00 03/14/2014 23:59: 59 CLS Outpatient CORDELL VILLANUEVA [id number] 03/03/2014 08:32:00 03/03/2014 23:59: 59 CLS Outpatient CHRISTOPHER VILLALOBOS APRN [id number] 02/14/2014 16:03:00 02/14/2014 23:59: 59 CLS Outpatient CORDELL VILLANUEVA [id number] 02/03/2014 16:18:00 02/03/2014 23:59: 59 CLS Outpatient CHRISTOPHER VILLALOBOS APRN [id number] 01/24/2014 13:38:00 01/24/2014 23:59: 59 CLS Outpatient CORDELL VILLANUEVA [id number] 11/15/2013 14:34:00 11/15/2013 23:59: 59 CLS Outpatient CHRISTOPHER VILLALOBOS APRN [id number] 10/16/2013 10:27:00 10/16/2013 23:59: 59 CLS Outpatient CHRISTOPHER VILLALOBOS APRN [id number] 09/16/2013 14:15:00 09/16/2013 23:59: 59 CLS Outpatient CHRISTOPHER VILLALOBOS APRN [id number] 07/31/2013 14:46:00 07/31/2013 23:59: 59 CLS Outpatient CHRISTOPHER VILLALOBOS APRN [id number] 07/03/2013 15:04:00 07/03/2013 23:59: 59 CLS Outpatient CHRISTOPHER VILLALOBOS APRN [id number] 05/29/2013 08:38:00 05/29/2013 23:59: 59 CLS Outpatient [id number] 05/27/2013 09:06:00 05/27/2013 23:59: 59 CLS Outpatient [place] DDS [id number] 05/24/2013 14:15:00 05/24/2013 23:59: 59 CLS Outpatient CHRISTOPHER VILLALOBOS APRN [id number] 12/24/2012 09:40:00 12/24/2012 23:59: 59 CLS Outpatient CHRISTOPHER VILLALOBOS APRN Anil [id number] 11/23/2012 10:20:00 11/23/2012 23:59: 59 CLS Outpatient CHRISTOPHER VILLALOBOS APRN [id number] 10/24/2012 13:51:00 10/24/2012 23:59: 59 CLS Outpatient CHRISTOPHER VILLALOBOS APRN [id number] 10/10/2012 09:46:00 10/10/2012 23:59: 59 CLS Outpatient CHRISTOPHER VILLALOBOS APRN [id number] 09/21/2012 08:22:00 09/21/2012 23:59: 59 CLS Outpatient CHRISTOPHER VILLALOBOS APRN Anil [id number] 09/19/2012 11:01:00 09/19/2012 23:59: 59 CLS Outpatient CHRISTOPHER VILLALOBOS APRN Anil [id number] 12/05/2012 16:09:00 Document Registration
--- OUTSIDE RECORDS SUMMARY | 2020-01-16 00:26 | XMS REPORT ---
Author Author Darien VILLALOBOS Organization [employer] Address Unknown Phone Unavailable Care Team Providers Care Railway Shunter Name Role Phone CHRISTOPHER VILLALOBOS CP Unavailable Allergies No Known Allergies Problems Problem Type Condition Code Onset Dates Condition Statu s Problem Diabetes type 1, controlled E10.9 Active Medications Medication Code System Code Instructions Start Date End Date Status Dosage Xanax [facility] [address]-64 2 MG Orally Twice a day Apr 29, 2015 1 tablet Results No Known Results Summary Purpose [employer] Submission
--- OUTSIDE RECORDS SUMMARY | 2020-01-16 00:26 | XMS REPORT ---
Author Darien Longo Organization [employer] Address Unknown Phone Unavailable Care Team Providers Care Freight Associate Name Role Phone CHRISTOPHER VILLALOBOS CP Unavailable Allergies No Known Allergies Problems Problem Type Condition Code Onset Dates Condition Statu s Problem Diabetes type 1, controlled E10.9 Active Medications No Known Medications Results No Known Results Summary Purpose [employer] Submission
--- OUTSIDE RECORDS SUMMARY | 2020-01-16 00:26 | XMS REPORT ---
Author Darien Longo [facility] eClinicalWorks Address Unknown Phone Unavailable Care Team Providers Care Convertible Power Shovel Operator Name Role Phone CHRISTOPHER VILLALOBOS CP Unavailable Allergies, Adverse Reactions, Alerts Substance Reaction Event Type N.K.D.A. Info Not Available Non Drug Allergy Problems Problem Type Condition Code Onset Dates Condition Statu s Problem Type 1 diabetes mellitus with diabetic polyneuropathy E10.42 Active Problem Type 1 diabetes mellitus with hyperglycemia E10.65 Active Problem Mood disorder F39 Active Assessment Mood disorder F39 Active Assessment Controlled diabetes mellitus type 1 without complicati ons E10.9 Active Problem Type 2 diabetes mellitus with hyperglycemia E11.65 Active Problem Diabetes type 1, controlled E10.9 Active Medications Medication Code System Code Instructions Start Date End Date Status Dosage GlucaGen HypoKit [facility] [address]-25 1 MG May 12, 2014 1 time per day PRN use as directed for hypoglycemia NovoLog Flexpen [facility] [address]-48 100 UNIT/ML Subcutaneous 3 times a day May 07, 2014 inject 15 Units by S ubcutaneous route before meals 3 times per day Levemir Flexpen [facility] [address]-13 100 unit/mL (3 mL) Once a d ay January 30, 2014 40 Unit by Subcutaneous rout e 1 time per day Escitalopram Oxalate [facility] [address]-26 10 mg Orally Once a day May 222015 1 tablet Risperdal [facility] [address]-43 3 MG Orally 2 times a day January 11, 2016 1 tablet Wellbutrin SR [facility] [address]-78 150 MG Orally Twice a day May 20 016 1 tablet Pen Minto [facility] 0 32 g January 30, 2014 32 gau ge by Subcutaneous route for use with flex pens HydrOXYzine HCl [facility] [address]-57 50 mg Orally every 8 hrs Apr 22, 2016 1 tablet as needed Procedures Procedure Coding System Code Date Office Visit, Est Pt., Level 3 CPT-4 45458 O 2015 GLYCATED HEMOGLOBIN TEST CPT-4 54924 Jun 16, 2016 Vital Signs Date/Time: Jun 16, 2016 Cardiac Monitoring Heart Rate 88 bpm Weight 170 lbs Height 69 in BMI 25.10 Index Blood Pressure Diastolic 84 mmHg Blood Pressure Systolic 122 mmHg Results Name Result Date Reference Range Unit Abnormali ty Flag A1C (IN HOUSE) ----A1C IN HOUSE 9.3 [id number] 4.3 - 5.6 % ----Previous A1c 9.5 [id number] ----Lot [id number] ----Exp date [id number] Summary Purpose eClinicalWorks Submission
--- OUTSIDE RECORDS SUMMARY | 2020-01-16 00:26 | XMS REPORT ---
Author Author Darien MELENDEZ Organization eClinicalWorks Address Unknown Phone Unavailable Care Team Providers Care Photography Manager Name Role Phone CORDELL MELENDEZ CP Unavailable Allergies No Known Allergies Problems [...] abscess of unspecified site 682.9 Active Assessment No condition on [place] II V71.09 Acti ve Assessment Anxiety, generalized 300.02 Active Assessment Major depression, recurrent 296.30 Active Problem Diabetes mellitus without me ntion of complication, type I [juvenile type], uncontrolled 250.03 Active Medications No Known Medications Procedures Procedure Coding System Code Date Psychotherapy, patient &/family, 45 minutes, established patient CPT-4 78485 Apr 29, 2015 Results No Known Results Summary Purpose eClinicalWorks Submission
--- OUTSIDE RECORDS SUMMARY | 2020-01-16 00:26 | XMS REPORT ---
Author Darien Longo Organization eClinicalWorks Address Unknown Phone Unavailable Care Team Providers Care Home Companion Name Role Phone CHRISTOPHER VILLALOBOS CP Unavailable Allergies, Adverse Reactions, Alerts Substance Reaction Event Type N.K.D.A. Info Not Available Non Drug Allergy Problems Problem Type Condition Code Onset Dates Condition Statu s Assessment Diabetes type 1, controlled E10.9 Active Problem Diabetes type 1, controlled E10.9 Active Medications Medication Code System Code Instructions Start Date End Date Status Dosage Risperidone [facility] [address]-11 1 MG 3 times a day 1 tablet Xanax [facility] [address]-46 2 MG Orally Twice a day Apr 29, 2015 1 tablet Levemir Flexpen [place] 0 100 unit/mL (3 mL) Once a day January 30, 2014 38 Unit by Subcutaneous route 1 time per day Adderall XR [facility] [address]-15 30 MG 2 times a day October 29, 2014 1 capsule NovoLog Flexpen [facility] [address]-55 100 UNIT/ML Subcutaneous 3 times a day May 07, 2014 inject 15 Units by S ubcutaneous route before meals 3 times per day Effexor XR [facility] [address]-22 150 MG Orally Once a day Apr 29, 2015 1 capsule with food Pen [place] NDC 0 32 g January 30, 2014 32 gau ge by Subcutaneous route for use with flex pens Procedures Procedure Coding System Code Date Office Visit, Est Pt., Level 3 CPT-4 56188 N ov 2014 Vital Signs Date/Time: Jun 29, 2015 Temperature 97.7 F Weight 154.4 lbs Height 69 in BMI 22.80 Index Blood Pressure Diastolic 78 mmHg Blood Pressure Systolic 116 mmHg Cardiac Monitoring Heart Rate 120 bpm Results No Known Results Summary Purpose eClinicalWorks Submission
--- OUTSIDE RECORDS SUMMARY | 2020-01-16 00:26 | XMS REPORT ---
Author Author Darien MELENDEZ Organization eClinicalWorks Address Unknown Phone Unavailable Care Team Providers Care Nnp Name Role Phone CORDELL MELENDEZ CP Unavailable [...] abscess of unspecified site 682.9 Active Assessment Depression F32.9 Active Assessment Anxiety F41.9 Active Problem Diabetes mellitus without me ntion of complication, type I [juvenile type], uncontrolled 250.03 Active Medications No Known Medications Procedures Procedure Coding System Code Date Psychotherapy, patient &/family, 45 minutes, established patient CPT-4 23124 May 27, 2015 Results No Known Results Summary Purpose eClinicalWorks Submission
--- OUTSIDE RECORDS SUMMARY | 2020-01-16 00:26 | XMS REPORT ---
Author Author Darien VILLALOBOS Organization [facility] Address [address] [place] [address] Care Team Providers Care Brand Strategy Manager Name Role Phone CHRISTOPHER VILLALOBOS Unavailable PROBLEMS Type Condition ICD9-CM Code IWK87-DM Code Onset Dates Condition S tatus SNOMED Code Problem Type 2 diabetes mellitus with hyperglycemia E11.65 Active 103888314371260 Problem Diabetes type 1, controlled E10.9 Ac tive 77853362 Assessment Schizoid personality disorder 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 December, Active 51985589 Assessment Controlled type 1 diabetes m ellitus with diabetic neuropathy, with long-term current use of insulin E10.40 December, Active 39232714 ALLERGIES Substance Reaction Event Type Date Status N.K.D.A. Unknown Non Drug Allergy December, Unknown SOCIAL HISTORY No smoking Hx information available PLAN OF CARE VITAL SIGNS Height 69 in 2016-01-11 Weight 158.8 lbs 2016-01-11 Heart Rate 100 bpm 2016-01-11 Respiratory Rate 22 2016-01-11 BMI 23.45 kg/m2 2016-01-11 Blood pressure systolic 136 mmHg 2016-01-11 Blood pressure diastolic 86 mmHg 2016-01-11 MEDICATIONS Medication Instructions Dosage Frequency Start Date End Date Duration S tatus Pen [place] 32 g 32 gauge by Subcutaneous route for us e with flex pens Jan, Active Levemir Flexpen 100 unit/mL (3 mL) 40 Un it by Subcutaneous route 1 time per day 24h Jan, Active Risperidone 2 MG Orally 3 times a day 1 tablet 8h Active Effexor XR 150 MG Orally Once a day 1 capsule with food 24h Apr, Active Adderall XR 30 MG 1 capsule 12h Oct, Active GlucaGen HypoKit 1 MG 1 time per day PRN use as direct ed for hypoglycemia Apr, Active Xanax 2 MG Orally Twice a day 1 tablet 12h Apr, Active NovoLog Flexpen 100 UNIT/ML Subcutaneous 3 times a day injec t 15 Units by Subcutaneous route before meals 3 times per day 8h 17 Apr, 2014 Active RESULTS Name Result Date Reference Range A1C (IN HOUSE) 2016-01-11 A1C IN HOUSE 9.5 4.3 - 5.6 % Previous A1c 9.0 Lot [id number] Exp date 10/2017 PROCEDURES Procedure Date Ordered Related Diagnosis Body Site GLYCATED HEMOGLOBIN TEST January 11, 2016 Office Visit, Est Pt., Level 3 January 11, 2016 IMMUNIZATIONS No Known Immunizations
--- OUTSIDE RECORDS SUMMARY | 2020-01-16 00:26 | XMS REPORT ---
Author Darien Longo Organization eClinicalWorks Address Unknown Phone Unavailable Care Team Providers Care Bag Sorter Name Role Phone CHRISTOPHER VILLALOBOS CP Unavailable Allergies No Known Allergies Problems Problem Type Condition Code Onset Dates Condition Statu s Assessment Diabetes mellitus without me ntion of complication, type II or unspecified type, uncontrolled 250.02 Active Problem Diabetes type 1, controlled E10.9 Active Medications Medication Code System Code Instructions Start Date End Date Status Dosage Adderall XR [facility] [address]-51 30 MG 2 times a day October 29, 2014 1 capsule Results No Known Results Summary Purpose eClinicalWorks Submission
--- OUTSIDE RECORDS SUMMARY | 2020-01-16 00:26 | XMS REPORT ---
Author Darien Longo [facility] eClinicalWorks Address Unknown Phone Unavailable Care Team Providers Care Tip Puncher Name Role Phone CHRISTOPHER VILLALOBOS CP Unavailable [...] abscess of unspecified site 682.9 Active Assessment Anxiety 300.00 Active Assessment Diabetes mellitus without me ntion of complication, type II or unspecified type, uncontrolled 250.02 Active Problem Diabetes mellitus without me ntion of complication, type I [juvenile type], uncontrolled 250.03 Active Medications Medication Code System Code Instructions Start Date End Date Status Dosage NovoLog Flexpen [facility] [address]-66 100 UNIT/ML Subcutaneous 3 times a day May 07, 2014 inject 15 Units by S ubcutaneous route before meals 3 times per day Clonazepam [facility] [address]-90 1 MG Orally Twice a day Apr 17, 2015 1 tablet Pen [place] NDC 0 32 g January 30, 2014 32 gau ge by Subcutaneous route for use [place] [address]-00 30 MG 2 times a day October 29, 2014 1 capsule Levemir Flexpen NDC 0 100 unit/mL (3 mL) Once a day January 30, 2014 35 Unit by Subcutaneous route 1 time per day GlucaGen HypoKit [facility] [address]-37 1 mg May 12, 2014 1 time per day PRN use as directed for hypoglycemia Risperidone [facility] [address]-51 1 MG 3 times a day 1 tablet Procedures Procedure Coding System Code Date MICROALBUMIN, SEMIQUANT CPT-4 63397 Apr 17, 2015 Office Visit, Est Pt., Level 3 CPT-4 30152 A 2014 GLYCATED HEMOGLOBIN TEST CPT-4 53705 Apr 17, 2015 Vital Signs Date/Time: Apr 17, 2015 Temperature 97.0 F Weight 161 lbs Height 69 in BMI 23.77 Index Blood Pressure Diastolic 92 mmHg Blood Pressure Systolic 138 mmHg Cardiac Monitoring Heart Rate 88 bpm Results Name Result Date Reference Range Unit Abnormali ty Flag A1C (IN HOUSE) Summary Purpose eClinicalWorks Submission
--- OUTSIDE RECORDS SUMMARY | 2020-01-16 00:26 | XMS REPORT ---
Author Author Darien VILLALOBOS Organization eClinicalWorks Address Unknown Phone Unavailable Care Team Providers Care Traditional [place] Health Practitioner Name Role Phone CHRISTOPHER VILLALOBOS CP Unavailable Allergies No Known Allergies Problems Problem Type Condition Code Onset Dates Condition Statu s Problem Diabetes type 1, controlled E10.9 Active Medications Medication Code System Code Instructions Start Date End Date Status Dosage Adderall XR [facility] [address]-55 30 MG 2 times a day October 29, 2014 1 capsule Results No Known Results Summary Purpose eClinicalWorks Submission
--- OUTSIDE RECORDS SUMMARY | 2020-01-16 00:26 | XMS REPORT ---
Author Darien Longo [facility] eClinicalWorks Address Unknown Phone Unavailable Care Team Providers Care Ship'S Master Name Role Phone CHRISTOPHER VILLALOBOS CP Unavailable Allergies, Adverse Reactions, Alerts Substance Reaction Event Type N.K.D.A. 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 Assessment Type 1 diabetes mellitus with hyperglycemia E10.65 Active Problem Diabetes type 1, controlled E10.9 Active Assessment Mood disorder F39 Active Medications Medication Code System Code Instructions Start Date End Date Status Dosage Pen [place] 0 32 g January 30, 2014 32 gau ge by Subcutaneous route for use with flex pens Risperdal [facility][NOTE 3] [address]-24 3 MG Orally 2 times a day January 11, 2016 1 tablet Levemir Flexpen [facility][NOTE 3] [address]-88 100 unit/mL (3 mL) Once a d ay January 30, 2014 40 Unit by Subcutaneous rout e 1 time per day NovoLog Flexpen [facility][NOTE 3] [address]-94 100 UNIT/ML Subcutaneous 3 times a day May 07, 2014 inject 15 Units by S ubcutaneous route before meals 3 times per day HydrOXYzine HCl [facility][NOTE 3] [address]-69 50 mg Orally every 8 hrs Apr 22, 2016 1 tablet as needed Wellbutrin SR [facility][NOTE 3] [address]-33 150 MG Orally Twice a day May 20 016 1 tablet GlucaGen HypoKit [facility][NOTE 3] [address]-68 1 MG May 12, 2014 1 time per day PRN use as directed for hypoglycemia Procedures Procedure Coding System Code Date Office Visit, Est Pt., Level 3 CPT-4 69292 S ept 2015 Vital Signs Date/Time: May 20, 2016 Cardiac Monitoring Heart Rate 106 bpm Weight 170 lbs Height 69 in BMI 25.10 Index Blood Pressure Diastolic 88 mmHg Blood Pressure Systolic 130 mmHg Results No Known Results Summary Purpose eClinicalWorks Submission
--- OUTSIDE RECORDS SUMMARY | 2020-01-16 00:26 | XMS REPORT ---
Author Author Darien VILLALOBOS Organization eClinicalWorks Address Unknown Phone Unavailable Care Team Providers Care Drilling Machine Runner Name Role Phone CHRISTOPHER VILLALOBOS CP Unavailable Allergies No Known Allergies Problems Problem Type Condition Code Onset Dates Condition Statu s Assessment Anxiety 300.00 Active Problem Diabetes type 1, controlled E10.9 Active Medications Medication Code System Code Instructions Start Date End Date Status Dosage Xanax [facility] [address]-03 1 MG Orally Three times a day Apr 29, 201 5 1 tablet Results No Known Results Summary Purpose eClinicalWorks Submission
[2020-01-16 00:27] LABS: ABG BASE EXCESS -1.5 MMOL/L (-2.5-2.5); ABG OXYGEN SATURATION 100 % (94-100); ABG PCO2 27 MMHG (35-45); ABG PH 7.51 (7.37-7.43); ABG PO2 156 MMHG (79-93); ABG TCO2 22.1 MMOL/L (21.0-31.0)
[2020-01-16 00:29] LABS: BASOPHILS # (AUTO) 0.1 10^3/uL (0.0-0.1); BASOPHILS % (AUTO) 1 % (0-10); EOSINOPHILS # (AUTO) 0.3 10^3/uL (0.0-0.3); EOSINOPHILS % (AUTO) 3 % (0-10); HEMATOCRIT 39 % (40-54); HEMOGLOBIN 13.6 G/DL (13.3-17.7); LYMPHOCYTES # (AUTO) 2.9 X 10^3 (1.0-4.0); LYMPHOCYTES % (AUTO) 28 % (12-44); MEAN CORPUSCULAR HEMOGLOBIN 31 PG (25-34); MEAN CORPUSCULAR HGB CONC 35 G/DL (32-36); MEAN CORPUSCULAR VOLUME 89 FL (80-99); MEAN PLATELET VOLUME 11.1 FL (7.4-10.4); MONOCYTES # (AUTO) 0.6 X 10^3 (0.0-1.0); MONOCYTES % (AUTO) 6 % (0-12); NEUTROPHILS # (AUTO) 6.6 X 10^3 (1.8-7.8); NEUTROPHILS % (AUTO) 62 % (42-75); PLATELET COUNT 310 10^3/uL (130-400); RED CELL DISTRIBUTION WIDTH 13.8 % (10.0-14.5); WHITE BLOOD COUNT 10.6 10^3/uL (4.3-11.0)
--- NOTE | 2020-01-16 00:29 | ED General ---
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 EMS CHECKED BLOOD GLUCOSE AND WAS TOO HIGH TO READ--PT HAS TYPE 1 DIABETES, CLAIMS HE TOOK "8 UNITS" NO IV BY EMS PT ALSO LONG-TERM IV DRUG USER--STATES HE USED TO USE COCAINE IV, NOW JUST USES METH--CLAIMS HE LAST USED YESTERDAY--"SHOT UP AND MISSED" PCP: DR. MURIEL JACOBSON Allergies and Home Medications Allergies Coded Allergies: No Known Drug Allergies (Unverified , 12/02/13) Home Medications Insulin Aspart 300 Units/3 Ml Solution, 10 UNITS SQ AC, (Reported) LAST P/U THROUGH [facility] 08/2015 FOR 3 BOXES Insulin Detemir 100 Unit/1 Ml Insuln.pen, 40 UNITS SQ HS, (Reported) LAST P/U 11/04/15 THROUGH [facility] FOR 3 BOXES Patient Home Medication List Home Medication List Reviewed: Yes Review of Systems Review of Systems Constitutional: other (PT UNABLE TO ANSWER MANY QUESTIONS DUE TO CURRENT AGITATED STATE--APPEARS TO BE UNDER THE INFLUENCE OF SOME SUBSTANCE) Past Wcqxzfy-Hjaptb-Vvgieg Hx Patient Social History Alcohol Use: Occasionally Uses (HISTORY OF ABUSE, NOW ONLY "OCCASIONALLY" DRINKS) Recreational Drug Use: Yes (+ IV METH AND COCAINE, THC, OTHERS) Drug of Choice: +IV METH AND COCAINE, THC, OTHERS Smoking Status: Current Everyday Smoker (1-2 PPD) Type Used: Cigarettes Immunizations Up To Date Tetanus Booster (TDap): Unknown Past Medical History Surgeries: Yes (I&D OF ABSCESS TO CHIN/NECK AREA) Respiratory: No Currently Using CPAP: No Currently Using BIPAP: No Cardiac: No Neurological: No Genitourinary: No Gastrointestinal: Yes (HEPATITIS) Liver Disease/Jaundice, Hepatitis Musculoskeletal: No Endocrine: Yes (TYPE 1 DIABETES) Diabetes, Insulin dep HEENT: No Cancer: No Psychosocial: Yes (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 1.6oz. [id number]; 24.2 BMI Method:Stated General Appearance: WD/WN, Other (EXTREMELY ANXIOUS/AGITATED, CONSTANT MOVEMENTS OF ENTIRE BODY/THRASHING ALL OVER, SCREAMING AND YELLING WITH ANY INTERVENTION SUCH OBTAINING VITALS, STARTING IV, ETC. ) HEENT: PERRL/EOMI Neck: Normal Inspection Respiratory: Normal Breath Sounds, No Accessory Muscle Use, No Respiratory Distress Cardiovascular: No Edema, No Murmur, Tachycardia Gastrointestinal: No Organomegaly, Non Tender, Soft Extremity: Normal Capillary Refill, Normal Range of Motion, Non Tender, No Calf Tenderness, No Pedal Edema, Other (MULTIPLE TRACK YARBROUGH OF VARIOUS AGES--SCARS, SCABS, SORES TO ARMS AND HANDS) Neurologic/Psychiatric: Alert, No Motor/Sensory Deficits, test engineering intern II-XII Norm as Tested, Other (UNABLE TO FULLY DETERMINE ORIENTATION DUE TO CURRENT STATE OF AGITATION, NEURO IS GROSSLY INTACT, BUT PT HAS DIFFICULTY FOLLOWING COMMANDS DUE TO AGITATION/ANXIETY--DIFFICULTY CONCENTRATING. ) Skin: Normal Color, Warm/Dry, Other (TRACK YARBROUGH NOTED ABOVE) Focused Exam Lactate Level 01/16/20 00:28: Lactic Acid Level 3.42*H Lactic Acid Level Laboratory Tests Test 01/16/20 00:28 Lactic Acid Level 3.42 MMOL/L (0.50-2.00) *H Progress/Results/Core Measures Suspected Sepsis SIRS Temperature: Pulse: Respiratory Rate: Laboratory Tests 01/16/20 00:14: White Blood Count 10.6 Blood Pressure / Mean: 01/16/20 00:28: Lactic Acid Level 3.42*H Laboratory Tests 01/16/20 00:14: Creatinine 1.38H, INR Comment 1.0, Platelet Count 310, Total Bilirubin 1.1H Results/Orders Lab Results Laboratory Tests Test 01/16/20 00:14 01/16/20 00:16 01/16/20 00:20 01/16/20 00:28 Range/Units White Blood Count 10.6 4.3-11.0 10^3/uL Red Blood Count 4.34 L 4.35-5.85 10^6/uL Hemoglobin 13.6 13.3-17.7 G/DL Hematocrit 39 L 40-54 % Mean Corpuscular Volume 89 80-99 FL Mean Corpuscular Hemoglobin 31 25-34 PG Mean Corpuscular Hemoglobin Concent 35 32-36 G/DL Red Cell Distribution Width 13.8 10.0-14.5 % Platelet Count 310 130-400 10^3/uL Mean Platelet Volume 11.1 H 7.4-10.4 FL Neutrophils (%) (Auto) 62 42-75 % Lymphocytes (%) (Auto) 28 12-44 % Monocytes (%) (Auto) 6 0-12 % Eosinophils (%) (Auto) 3 0-10 % Basophils (%) (Auto) 1 0-10 % Neutrophils # (Auto) 6.6 1.8-7.8 X 10^3 Lymphocytes # (Auto) 2.9 1.0-4.0 X 10^3 Monocytes # (Auto) 0.6 0.0-1.0 X 10^3 Eosinophils # (Auto) 0.3 0.0-0.3 10^3/uL Basophils # (Auto) 0.1 0.0-0.1 10^3/uL Prothrombin Time 13.8 12.2-14.7 SEC INR Comment 1.0 0.8-1.4 Activated Partial Thromboplast Time 27 24-35 SEC Sodium Level 131 L 135-145 MMOL/L Potassium Level 5.3 H 3.6-5.0 MMOL/L Chloride Level 98 98-107 MMOL/L Carbon Dioxide Level 19 L 21-32 MMOL/L Anion Gap 14 5-14 MMOL/L Blood Urea Nitrogen 20 H 7-18 MG/DL Creatinine 1.38 H 0.60-1.30 MG/DL Estimat Glomerular Filtration Rate 57 BUN/Creatinine Ratio 14 Glucose Level 732 *H 70-105 MG/DL Calcium Level 9.2 8.5-10.1 MG/DL Corrected Calcium 9.3 8.5-10.1 MG/DL Magnesium Level 1.9 1.6-2.4 MG/DL Total Bilirubin 1.1 H 0.1-1.0 MG/DL Aspartate Amino Transf (AST/SGOT) 19 5-34 U/L Alanine Aminotransferase (ALT/SGPT) 23 0-55 U/L Alkaline Phosphatase 114 40-136 U/L Total Protein 6.8 6.4-8.2 GM/DL Albumin 3.9 3.2-4.5 GM/DL Amylase Level 29 25-125 U/L Lipase 45 8-78 U/L TSH [place] Testing 1.25 0.35-4.94 UIU/ML Acetaminophen Level < 10 L 10-30 UG/ML Serum Alcohol < 10 <10 MG/DL Glucometer > 600 *H 70-110 MG/DL Blood Gas Puncture Site RT RADIAL Blood Gas Patient Temperature 36.3 Arterial Blood pH 7.51 H 7.37-7.43 Arterial Blood Partial Pressure CO2 27 L 35-45 MMHG Arterial Blood Partial Pressure O2 156 H 79-93 MMHG Arterial Blood HCO3 21 L 23-27 MMOL/L Arterial Blood Total CO2 22.1 21.0-31.0 MMOL/L Arterial Blood Oxygen Saturation 100 94-100 % Arterial Blood Base Excess -1.5 -2.5-2.5 MMOL/L [place] Test P Blood Gas Ventilator Setting NO Blood Gas Inspired Oxygen ROOM AIR Lactic Acid Level 3.42 *H 0.50-2.00 MMOL/L Test 01/16/20 01:05 01/16/20 01:28 Range/Units Urine Color YELLOW Urine Clarity CLEAR Urine pH 6.5 5-9 Urine Specific [place] <=1.005 1.016-1.022 Urine Protein NEGATIVE NEGATIVE Urine Glucose (UA) 3+ H NEGATIVE Urine Ketones NEGATIVE NEGATIVE Urine Nitrite NEGATIVE NEGATIVE Urine Bilirubin NEGATIVE NEGATIVE Urine Urobilinogen 0.2 < = 1.0 MG/DL Urine Leukocyte Esterase NEGATIVE NEGATIVE Urine RBC (Auto) NEGATIVE NEGATIVE Urine RBC 0-2 /HPF Urine WBC NONE /HPF Urine Crystals NONE /LPF Urine Bacteria NEGATIVE /HPF Urine Casts NONE /LPF Urine Mucus NEGATIVE /LPF Urine Culture Indicated NO Urine Opiates Screen NEGATIVE NEGATIVE Urine Oxycodone Screen NEGATIVE NEGATIVE Urine Methadone Screen NEGATIVE NEGATIVE Urine Propoxyphene Screen NEGATIVE NEGATIVE Urine Barbiturates Screen NEGATIVE NEGATIVE Ur Tricyclic Antidepressants Screen NEGATIVE NEGATIVE Urine Phencyclidine Screen NEGATIVE NEGATIVE Urine Amphetamines Screen POSITIVE H NEGATIVE Urine Methamphetamines Screen NEGATIVE NEGATIVE Urine Benzodiazepines Screen NEGATIVE NEGATIVE Urine Cocaine Screen NEGATIVE NEGATIVE Urine Cannabinoids Screen POSITIVE H NEGATIVE My Orders Orders - TURNER SOOD DO Accucheck Stat ONCE (01/16/20:10) Ed Iv/Invasive Line Start (01/16/20:10) Ekg Tracing (01/16/20:10) Monitor-Rhythm Ecg Trace Only (01/16/20:10) Acetaminophen (01/16/20:10) Alcohol (01/16/20:10) Amylase (01/16/20:10) Arterial Blood Gas (01/16/20:) Cbc With Automated Diff (01/16/20:) Comprehensive Metabolic Panel (01/16/20:) Drug Screen Stat (Urine) (01/16/20:10) Lactic Acid Analyzer (01/16/20:10) Lipase (01/16/20:10) Magnesium (01/16/20:10) Protime With Inr (01/16/20:10) Partial Thromboplastin Time (01/16/20:10) Thyroid Analyzer (01/16/20:10) Ua Culture If Indicated (01/16/20:10) Ed Iv/Invasive Line Start (01/16/20:10) Ns Iv 1000 Ml (Sodium Chloride 0.9%) (01/16/20 00:10) Diphenhydramine Injection (Benadryl Inje (01/16/20 00:15) Lorazepam Injection (Ativan Injection) (01/16/20 00:15) Haloperidol Injection (Haldol Injectio (01/16/20 00:15) Diphenhydramine Injection (Benadryl Inje (01/16/20 00:09) Haloperidol Injection (Haldol Injectio (01/16/20 00:09) Lorazepam Injection (Ativan Injection) (01/16/20 00:09) Haloperidol Injection (Haldol Injectio (01/16/20 00:30) Diphenhydramine Injection (Benadryl Inje (01/16/20 00:30) Lorazepam Injection (Ativan Injection) (01/16/20 00:30) Ed Iv/Invasive Line Start (01/16/20 00:50) Ns Iv 1000 Ml (Sodium Chloride 0.9%) (01/16/20 00:50) Insulin (Regular) Human (Humulin R (Per (01/16/20 01:00) Haloperidol Injection (Haldol Injectio (01/16/20 01:00) Catheter(Urinary) Insert & Ass 03,15 (01/16/20 00:51) Accucheck Stat ONCE (01/16/20 01:30) Medications Given in ED Current Medications Medications Dose Ordered Sig/Andre Route Start Time Stop Time Status Last Admin Dose Admin Diphenhydramine HCl 50 mg ONCE ONCE IVP 01/16/20 00:15 01/16/20 00:16 DC 01/16/20 00:15 50 MG Diphenhydramine HCl 50 mg ONCE ONCE IVP 01/16/20 00:30 01/16/20 00:31 DC 01/16/20 00:30 50 MG Haloperidol Lactate 5 mg ONCE ONCE IM/IV 01/16/20 00:15 01/16/20 00:16 DC 01/16/20 00:15 5 MG Haloperidol Lactate 5 mg ONCE ONCE IV 01/16/20 00:30 01/16/20 00:31 DC 01/16/20 00:30 5 MG Lorazepam 2 mg ONCE ONCE IVP 01/16/20 00:15 01/16/20 00:16 DC 01/16/20 00:15 2 MG Lorazepam 2 mg ONCE ONCE IVP 01/16/20 00:30 01/16/20 00:31 DC 01/16/20 00:30 2 MG Vital Signs/I&O 01/16/20 00:11 Temp 36.3 Pulse 121 Resp 36 B/P (MAP) 124/95 (105) Pulse Ox 98 O2 Delivery Room Air Capillary Refill : Progress Note : Progress Note GIVEN IV FLUIDS AND IV INSULIN GIVEN BENADRYL/ATIVAN/HALDOL FOR AGITATION--MULTIPLE DOSES--WITH MODERATE IMPROVEMENT NO DETERIORATION IN PT'S CONDITION DURING ER STAY ECG Initial ECG Impression Date: January 16, 2020 Initial ECG Impression Time: 00:32 Initial ECG Rate: 104 Initial ECG Rhythm: S.Tach Departure Communication (Admissions) 54--SPOKE WITH DR. ARTEAGA, ACCEPTS PT FOR ADMIT 57--SPOKE WITH DR. MORAN, E-ICU PHYSICIAN AND GAVE REPORT. Impression Primary Impression: Uncontrolled type 1 diabetes mellitus Additional Impressions: Acute psychosis CHRONIC IV METHAMPHETAMINE USE Electrolyte imbalance Mild dehydration Lactic acidosis Disposition: ADMITTED INPATIENT Condition: Improved Admissions Decision to Admit Reason: Admit from ER (General) Decision to Admit/Date: January 16, 2020 Time/Decision to Admit Time: 00:55 Departure-Patient Inst. Referrals: [facility] (PCP/Family) Primary Care Physician TURNER SOOD DO January 16, 2020 00:29
[2020-01-16 00:30] LABS: ALLENS TEST P; INSPIRED O2 ROOM AIR; PATIENT TEMP 36.3; VENTILATOR NO
[2020-01-16] MEDS ORDERED: HALOPERIDOL 5 MG/ML (HALDOL) AMP IV ONE ×2 (00:30→01:00)
[2020-01-16 00:40] LABS: ALBUMIN 3.9 GM/DL (3.2-4.5); CHLORIDE 98 MMOL/L (98-107); POTASSIUM 5.3 MMOL/L (3.6-5.0); SODIUM 131 MMOL/L (135-145)
[2020-01-16 00:42] LABS: CALCIUM 9.2 MG/DL (8.5-10.1)
[2020-01-16 00:43] LABS: AMYLASE 29 U/L (25-125); TOTAL PROTEIN 6.8 GM/DL (6.4-8.2)
[2020-01-16 00:44] LABS: CARBON DIOXIDE 19 MMOL/L (21-32)
[2020-01-16 00:45] LABS: BILIRUBIN,TOTAL 1.1 MG/DL (0.1-1.0)
[2020-01-16 00:46] LABS: ALKALINE PHOSPHATASE 114 U/L (40-136)
[2020-01-16 00:47] LABS: CREATININE SERUM 1.38 MG/DL (0.60-1.30); GFR ESTIMATED 57
[2020-01-16 00:48] LABS: BUN/CREATININE RATIO 14
[2020-01-16 00:49] LABS: ALANINE AMINOTRANSFERASE 23 U/L (0-55)
[2020-01-16 00:50] LABS: MAGNESIUM 1.9 MG/DL (1.6-2.4)
[2020-01-16 00:51] LABS: ACETAMINOPHEN < 10 UG/ML (10-30); GLUCOSE 732 MG/DL (70-105); LIPASE 45 U/L (8-78); PROTHROMBIN TIME PATIENT 13.8 SEC (12.2-14.7)
[2020-01-16] MEDS ORDERED: inSUlin (REGULAR) HUMAN 1 UNIT/0.01 ML (CHARGE PER UNIT) IV ONE (01:00)
[2020-01-16 01:11] LABS: TSH (THYROID ANALYZER) 1.25 UIU/ML (0.35-4.94)
[2020-01-16 01:14] LABS: BILIRUBIN,URINE NEGATIVE (NEGATIVE); CLARITY,URINE CLEAR; COLOR,URINE YELLOW; GLUCOSE, URINE (UA) 3+ (NEGATIVE); KETONES,URINE NEGATIVE (NEGATIVE); LEUKOCYTE ESTERASE ,URINE NEGATIVE (NEGATIVE); NITRITE,URINE NEGATIVE (NEGATIVE); PH,URINE 6.5 (5-9); PROTEIN,URINE NEGATIVE (NEGATIVE)
--- OUTSIDE RECORDS SUMMARY | 2020-01-16 01:21 | XMS REPORT ---
Author Author [facility]calia. [facility] Data[facility]. [facility] Address [address] [address] Care Team Providers Care Duplicating Machine Servicer Name Role Phone WILFREDOCHRISTOPHER Unavailable Unavailable WILFREDO, CHRISTOPHER Unavailable Unavailable WILFREDO, CHRISTOPHER Unavailable WILFREDO, CHRISTOPHER Unavailable Unavailable [facility] Unavailable [phone] Unavailable Unavailable CORDELL MELENDEZ Unavailable [...] WILFREDO, CHRISTOPHER Unavailable WILFREDO, CHRISTOPHER Unavailable WILFREDO, CHRISTOPEHR Unavailable WILFREDO, CHRISTOPHER Unavailable Migration, Doctor Unavailable Unavailable WILFREDO, CHRISTOPHER Unavailable WILFREDO, CHRISTOPHER Unavailable SERA LAINEZ MD Unavailable Unavailable SERA LAINEZ MD Unavailable Unavailable TURNER SOOD DO Unavailable Unavailable Unavailable Unavailable Unavailable Unavailable Unavailable Unavailable Unavailable Unavailable Allergies The [...] Episodic Active CHRISTOPHER Lo ity codes; Translations: [address] [place] [address] unclassified [ Other of [facility] (20 sources.) chronic pain] [place] ([address]) Immunizations Encounter for Episodic Active CHRISTOPHER WILFREDO Briseno ommunity and screening immunization [address] [place] [address] for infectious Translations: of [facility] disease (20 [ - Encounter [place] ([address]) sources.) for immunization Z23] Fluid and Hypovolemia 01-15-2020 - Episodic Active SERA DENNY [facility] Via electrolyte , MD [place] disorders (1 Hospital - source.) [place] ([address]) Other termite helper 01-15-2020 - Episodic Active SERA LAINEZ [facility] Via aftercare (1 (current) use , MD [place] source.) of insulin [facility] ([address]14) Substance-rela Nicotine 01-15-2020 - Chronic Active SERA UGALDE [facility] Via juanito disorders dependence, , MD [place] (1 source.) cigarettes, Hospital - [facility] ([address]) Suicide and Poisoning by 01-15-2020 - Episodic Active SERA AYALA [facility] Via intentional insulin and MD [place]rick self-inflicted oral Hospital - injury (1 hypoglycemic [place] source.) [antidiabetic] ([address]298) drugs, intentional self-harm, initial encounter Procedures Procedure Normalized Procedure Procedure Result Performer Facility Date 05-27-2013 Blood count complete no information no name [facility] auto&auto difrntl wbc Center [facility] ([address]75) 05-27-2013 Collection venous no information no name [facility] blood venipuncture [facility] (55956) 05-27-2013 Comprehensive no information no name [facility] metabolic panel [facility] (51156) 02-03-2014 Hemoglobin no information no name [facility] glycosylated a1c [facility] (60664) 09-16-2013 Hemoglobin no information no name [facility] glycosylated a1c [facility] (30609) 05-27-2013 Lipid panel no information no name [facility] (69664) 02-14-2014 Psychotherapy no information no name [facility] w/patient 45 minutes [facility] ([id number]) 05-27-2013 Rheumatoid factor no information no name [facility] (88312) 09-16-2013 Urine albumin no information no name [facility] semiquantitative [facility] (62248) Immunizations Normalized Immunization Date Notes Care Provider Facili ty Immunization influenza, seasonal, 06-17-2019 no information no name [facility] injectable [facility] ([id number]) Results Test Name Value Interpretation Reference Range Date Time Fa cility (Normalized) (Normalized) (Medline Reference) not yet categorized on 2020-01-15 Arterial patency P (no code) 01-15-2020 PENDING L OCATION Wrist artery 20:20-0400 [facility] (40426) --pre arterial puncture Body site RT RADIAL (no code) 01-15-2020 PENDING LOCATI ON 20:20-0400 [facility] (60558) Inhaled oxygen ROOM AIR (no code) 01-15-2020 PENDING LOC ATION flow rate 20:20-0400 [facility] (81622) Ventilation mode NO (no code) 01-15-2020 PENDING L OCATION Ventilator 20:20-0400 [facility] (11590) laboratory on 2020-01-15 Acetaminophen ug/mL (L) 01-15-2020 PENDING LOCA TION [Mass/Vol] 20:14-0400 [facility] (38830) Albumin 3.9 g/dL (NEG) 3.4 - 5.4 g/dL 01-15-2020 PENDING LOCATION [Mass/Vol] 20:14-0400 [facility] (10171) ALP [Catalytic 114 U/L (NEG) 44 - 147 U/L 01-15-2020 PEND ING LOCATION activity/Vol] 20:14-0400 [facility] (54276) ALT [Catalytic 23 U/L (NEG) 4 - 40 U/L 01-15-2020 PENDIN G LOCATION activity/Vol] 20:14-0400 [facility] (04776) Amylase 29 U/L (NEG) 40 - 140 U/L 01-15-2020 PENDING L OCATION [Catalytic 20:0 [facility] (94642) activity/Vol] Anion gap 14 mmol/L (NEG) 3 - 11 mmol/L 01-15-2020 PENDING LOCATION [Moles/Vol] 20:14-0400 [facility] (14749) aPTT Coag (PPP) 27 s (NEG) 25 - 35 s 01-15-2020 PENDIN G LOCATION [Time] 20: [facility] () AST [Catalytic 19 U/L (NEG) 10 - 34 U/L 01-15-2020 PENDI NG LOCATION activity/Vol] 20:14-0400 [facility] (48461) Base excess Calc 1.5 mmol/L (NEG) -2 - 2 mmol/L 01-15-2020 PENDING LOCATION (Bld) 20:20-0400 [facility] (32485) [Moles/Vol] Basophils (Bld) 0.1 10*3/uL (NEG) 0 - 0.3 10*3/uL 01-15-2020 PENDING LOCATION [#/Vol] 20:140400 [facility] (18913) Basophils/100 1 % (NEG) 0.5 - 1 % 01-15-2020 PENDING LOCATION WBC (Bld) 20:14-0400 [facility] (70314) Bilirubin 1.1 mg/dL (H) 0.1 - 1.2 mg/dL 01-15-2020 PENDIN G LOCATION [Mass/Vol] 20:14-0400 [facility] (59849) Calcium 9.2 mg/dL (NEG) 8.5 - 10.2 mg/dL 01-15-2020 PENDI NG LOCATION [Mass/Vol] 20:14-0400 [facility] (17164) Calcium 9.3 mg/dL (NEG) 8.5 - 10.2 mg/dL 01-15-2020 PENDI NG LOCATION [Mass/Vol] 20:14-0400 [facility] (11285) Chloride 98 mmol/L (NEG) 95 - 106 mmol/L 01-15-2020 PENDIN G LOCATION [Moles/Vol] 20:14-0400 [facility] (10021) CO2 (Bld) 27 mm[Hg] (L) 35 - 45 mm[Hg] 01-15-2020 PENDING LOCATION [Partial 20:20-0400 [facility] (99228) pressure] CO2 [Moles/Vol] 19 mmol/L (L) 23 - 29 mmol/L 01-15-2020 P ENDING LOCATION 20:14-0400 [facility] (09003) CO2 [Moles/Vol] 22.1 mmol/L (NEG) 23 - 29 mmol/L 01-15-2020 PENDING LOCATION 20:20-0400 [facility] (86107) Creatinine 1.38 mg/dL (H) 01-15-2020 PENDING LOCATI ON [Mass/Vol] 20:140400 [facility] (29410) Creatinine and 57 (no code) 01-15-2020 PENDING LOC ATION Glomerular 20:14-0 [facility] () filtration rate.predicted panel - Serum, Plasma or Blood Eosinophils 0.3 10*3/uL (NEG) 0.05 - 0.5 01-15-2020 PENDING LOCATION (Bld) [#/Vol] 10*3/uL 20:140 [facility] (35480) Eosinophils/100 3 % (NEG) 1 - 4 % 01-15-2020 [facility] LOCATION WBC (Bld) 20:14-0400 [facility] (28048) Erythrocyte 13.8 % (NEG) 11.6 - 14.6 % 01-15-2020 [facility] LOCATION distribution 20:140400 [facility] (22133) width (RBC) [Ratio] Ethanol mg/dL (NEG) 0 - 80 mg/dL 01-15-2020 PENDING L OCATION [Mass/Vol] 20:14-0400 [facility] (45558) Glucose 732 mg/dL (HH) 60 - 125 mg/dL 01-15-2020 PENDING LOCATION [Mass/Vol] 20:14-0400 [facility] (08309) Glucose mg/dL (HH) 60 - 125 mg/dL 01-15-2020 PENDING LOCATION [Mass/Vol] 20:16-0400 [facility] (44379) HCO3 (Bld) 21 mmol/L (L) 22 - 28 mmol/L 01-15-2020 PENDIN G LOCATION [Moles/Vol] 20:20-0400 [facility] (52867) Hematocrit (Bld) 39 % (L) 36.1 - 50.3 % 01-15-2020 P ENDING LOCATION [Volume 20:14-0400 [facility] (23105) fraction] Hemoglobin (Bld) 13.6 g/dL (NEG) 12.1 - 17.2 g/dL 01-15-2020 PENDING LOCATION [Mass/Vol] 20:14-0400 [facility] (20227) INR Coag 1.0 (NEG) 01-15-2020 PENDING LOCATI ON (Platelet poor 20:14-0400 [facility] (92804) plasma or blood) [Relative time] Lipase 45 U/L (NEG) 10 - 73 U/L 01-15-2020 PENDING LO CATION [Catalytic 20:14-0400 [facility] (12243) activity/Vol] Lymphocytes 2.9 10*3/uL (NEG) 0.9 - 2.9 01-15-2020 PENDING LOCATION (Bld) [#/Vol] 10*3/uL 20:14-0400 [facility] (70589) Lymphocytes/100 28 % (NEG) 20 - 40 % 01-15-2020 PENDIN G LOCATION WBC (Bld) 20:14-0400 [facility] (80013) Magnesium 1.9 mg/dL (NEG) 1.7 - 2.2 mg/dL 01-15-2020 PENDIN G LOCATION [Mass/Vol] 20:14-0400 [facility] (20433) MCH (RBC) 31 pg (NEG) 27 - 31 pg 01-15-2020 PENDING LOC ATION [Entitic mass] 20:14-0400 [facility] (86520) MCHC (RBC) 35 g/dL (NEG) 32 - 36 g/dL 01-15-2020 PENDING LOCATION [Mass/Vol] 20:14-0400 [facility] (77264) MCV (RBC) 89 (NEG) 01-15-2020 PENDING LOCATI ON [Entitic vol] 20:14-0400 [facility] (36464) Monocytes (Bld) 0.6 10*3/uL (NEG) 0.3 - 0.9 01-15-2020 PEND ING LOCATION [#/Vol] 10*3/uL 20:14-0400 [facility] (71841) Monocytes/100 6 % (NEG) 2 - 8 % 01-15-2020 PENDING LOCATION WBC (Bld) 20:14-0400 [facility] (01907) Neutrophils 6.6 10*3/uL (NEG) 1.7 - 7 10*3/uL 01-15-2020 [facility] LOCATION (Bld) [#/Vol] 20:14-0400 [facility] (28400) Neutrophils/100 62 % (NEG) 40 - 60 % 01-15-2020 PENDIN G LOCATION WBC (Bld) 20:14-0400 [facility] (64311) Oxygen (Bld) 156 mm[Hg] (H) 75 - 100 mm[Hg] 01-15-2020 [facility] LOCATION [Partial 20:20-0400 [facility] (06361) pressure] pH adjusted to 7.51 (H) 01-15-2020 PENDING LOC ATION patient's actual 20:20-0400 [facility] (71253) temperature (BldA) Platelet mean 11.1 (H) 01-15-2020 PENDING LOCA TION volume (Bld) 20:14-0400 [facility] (72007) [Entitic vol] Platelets (Bld) 310 10*3/uL (NEG) 150 - 450 01-15-2020 PEND ING LOCATION [#/Vol] 10*3/uL 20:14-0400 [facility] (45925) Potassium 5.3 mmol/L (H) 3.7 - 5.2 mmol/L 01-15-2020 PEND ING LOCATION [Moles/Vol] 20:14-0400 [facility] (80262) Protein 6.8 g/dL (NEG) 6.4 - 8.3 g/dL 01-15-2020 PENDING LOCATION [Mass/Vol] 20:14-0400 [facility] (82125) PT Coag (PPP) 13.8 s (NEG) 9.4 - 12.5 s 01-15-2020 PENDI NG LOCATION [Time] 20:14-0400 [facility] (63081) RBC (Bld) 4.34 10*6/uL (L) 4.2 - 6.1 01-15-2020 PENDING L OCATION [#/Vol] 10*6/uL 20:14-0400 [facility] (93406) SaO2% (BldA) 100 (NEG) 01-15-2020 PENDING LOCAT ION [Mass fraction] 20:20-0400 [facility] (44078) Sodium 131 mmol/L (L) 135 - 145 mmol/L 01-15-2020 PEND ING LOCATION [Moles/Vol] 20:14-0400 [facility] (77237) Urea nitrogen 20 mg/dL (H) 7 - 20 mg/dL 01-15-2020 PENDI NG LOCATION [Mass/Vol] 20:14-0400 [facility] (46591) Urea 14 mg/mg (no code) 6 - 22 mg/mg 01-15-2020 PENDING L OCATION nitrogen/Creatin 20:14-0400 [facility] (62129) ine [Mass ratio] WBC (Bld) 10.6 10*3/uL (NEG) 3.5 - 10.5 01-15-2020 PENDING LOCATION [#/Vol] 10*3/uL 20:14-0400 [facility] (84780) Vital Signs Vital Sign Value Interpretation Reference Date Time Care [facility] ider Facility (Normalized) (Normalized) Range Body height 175.26 cm (no code) cm 11-15-2013 [facility] 15:34-[id number] [place] [address] (13654) Body height 175.26 cm (no code) cm 10-16-2013 [facility] 11:27-[address] [facility] (35841) Body height 175.26 cm (no code) cm 09-16-2013 [facility] 14:15-[id number] [place] [address] (05844) Body height 175.26 cm (no code) cm 07-03-2013 [facility] 15:04-0500 85766 (Other Health Center Phone: of [facility] ) [place] ([address]) Body 36.3 (no code) 01-15-2020 no name PENDING temperature 20:20-0400 LOCATION [facility] (30046) Body 97.5 [degF] (no code) 97.8 - 99.0 03-03-2014 [facility] [place] Temperature [degF] 10:32-0400 87598 [facility] (04316) Body 97.3 [degF] (no code) 97.8 - 99.0 02-03-2014 [facility] [place] Temperature [degF] 18:18-[id number] [place] [address] (36593) Body 97.3 [degF] (no code) 97.8 - 99.0 11-15-2013 [facility] [place] temperature [degF] 15:34-0400 17864 [facility] (11889) Body 96.8 [degF] (no code) 97.8 - 99.0 10-16-2013 [facility] [place] temperature [degF] 11:27-[id number] [place] [address] (95849) Body 97.2 [degF] (no code) 97.8 - 99.0 09-16-2013 [facility] [place] temperature [degF] 14:15-[id number] [place] [address] (66530) Body weight 69.81 kg (no code) kg 03-03-2014 [facility] 10:32-[id number] [place] [address] (99028) Body weight 68.09 kg (no code) kg 02-03-2014 [facility] 18:18-[address] [place] [address] (63680) Body weight 71.99 kg (no code) kg 11-15-2013 [facility] 15:34-[id number] [place] [address] (55867) Body weight 68.22 kg (no code) kg 10-16-2013 [facility] 11:27-[id number] [place] [address] (77583) Body weight 68.72 kg (no code) kg 09-16-2013 [facility] 14:15-[id number] [place] [address] (94462) Body weight 68.49 kg (no code) kg 07-03-2013 [facility] [id number]:[id number] [facility] (Other [facility] Center Phone: of [facility] ) [place] ([address]286) Height 175.26 cm (no code) cm 03-03-2014 CHRISTOPHER Briseno [facility] 10:320400 88431 [facility] (49504) Height 175.26 cm (no code) cm 02-03-2014 CHRISTOPHER Briseno [facility] 18:18-[address] [place] [address] (05245) Interventions No Information Plan of Treatment The data below is from unstructured sources Discharge Date 02/10/16 4:58pm Disposition 81 HOME-SELF CARE W PLAN READM Instructions/Education Provided ALCO HOL AND SUBSTANCE ABUSE Prescriptions See Medication Section Additional Instructions/Education pt to be discharged to [facility] [place] for transfer to [facility] Care Plan and Goals See [...] Care Provi denilson Organization Date Type 07-12-2019 [facility] no information MANOHAR DALJIT (no phone) [facility] (no phone) 06-17-2019 [facility] Type 1 diabetes NAHUN LLAMAS (no [facility] mellitus without phone) (no phone) complications 01-15-2020 Emergency department no information TURNER SOOD DO (no [facility] patient visit phone) [facility] (no phone) 02-09-2016 Evaluation and no information SERA LAINEZ MD (n o [facility] - management of phone) [facility] 02-10-2016 inpatient (no phone) 07-12-2019 Patient encounter no information no name no or ganization name procedure 11-11-2019 Telephone encounter no information NAHUN LLAMAS (n o [facility] phone) (no phone) 07-12-2019 Telephone encounter no information NAHUN LLAMAS (n o [facility] phone) (no phone) 07-04-2019 Telephone encounter no information NAHUN LLAMAS (n o [facility] phone) (no phone) 06-19-2019 Telephone encounter Type 1 diabetes NAHUN LLAMAS ( no [facility] mellitus without phone) (no phone) complications Medical Equipment No Information Payers No Information History general Narrative - Reported Note Type Note Facility History general Narrative - Reported Type Medical type I diabetes History Medical hx of MRSA infections History Medical depression History Medical anxiety History Surgical I & D-MRSA History Hospitaliz MRSA 2004 ation History [facility] ([id number]) Summary Purpose eClinicalWorks SubmissioneClinicalWorks SubmissioneClinicalWorks SubmissioneClinicalWorks SubmissioneClinicalWorks SubmissioneClinicalWorks SubmissioneClinicalWorks SubmissioneClinicalWorks SubmissioneClinicalWorks SubmissioneClinicalWorks SubmissioneClinicalWorks SubmissioneClinicalWorks SubmissioneClinicalWorks SubmissioneClinicalWorks SubmissioneClinicalWorks SubmissioneClinicalWorks SubmissioneClinicalWorks SubmissioneClinicalWorks SubmissioneClinicalWorks SubmissioneClinicalWorks SubmissioneClinicalWorks SubmissioneClinicalWorks SubmissioneClinicalWorks SubmissioneClinicalWorks Submission Advance Directives Directive Response Recor ded Date/Time Advance Directives No 3:12am Health Care Power of Communication Skills Instructor No 02/10/16 3:12am Organ Donor Yes 02/10/16 3:12am Resuscitation Status DNR-Pt Request 02/10/16 3:12am Discharge Instructions Patient Instructions Physician Instructions New, Converted or Re-Newed RX: Other (no changes to insulin regimen) Goal/Follow Up Appt: Please call [facility] at [phone] to arrange an appointment with Jitendra upon discharge. Patient Instructions: Please take insulin as prescribed. Return to The Hospital For: Per [facility]. Discharge Diet: ADA Diet Pneu Vac Indicated: Yes Care Plan Patient Instructions:: Please take insulin as prescribed. Goal:: Please call [facility] at [phone] to arrange an appointment with Jitendra upon discharge. Additional Source Comments This clinical document has been generated using [employer] software that has been certified by the Office of the National Coordinator for Health Information Technology (ONC 15.99.04.3023.Diam.31.00.0.972378) and the National Committee for Filenet Developer (NCQA, as an eMeasure certified technology). FOR [...] BASED ON T HE PRIMARY CLINICAL RECORDS. [employer] provides no warranty or guara ntee of the accuracy or completeness of information in this document.The followi ng information is based on time limited clinical information UNRECOGNIZED CONTENT PROVIDED BELOW FOR UNRECOGNIZED SECTION REASON FOR VISIT [id number] UNRECOGNIZED CONTENT PROVIDED BELOW FOR UNRECOGNIZED SECTION MEDICAL (GENERAL) HISTORY Type Description Date Medical History type I diabetes Medical History hx of MRSA infections Medical History depression Medical History anxiety Surgical History I & D-MRSA Hospitalization History MRSA 2003
[2020-01-16 01:23] LABS: BACTERIA,URINE NEGATIVE /HPF; RBC,URINE 0-2 /HPF
--- OUTSIDE RECORDS SUMMARY | 2020-01-16 01:26 | XMS REPORT | Continuity of Care Document ---
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 ABUSE 10/10/2012 314.00 ADH D INATTENTIVE 10/10/2012 CHRISTOPHER VILLALOBOS APRN 30 5.1 TOBACCO ABUSE 10/10/2012 CHRISTOPHER VILLALOBOS APRN 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 10/10/2012 CHRISTOPHER VILLALOBOS APRN 30 5.1 TOBACCO ABUSE 10/10/2012 CHRISTOPHER VILLALOBOS APRN 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 10/10/2012 WHITE DDS, HI J 30 5.1 TOBACCO ABUSE 10/10/2012 WHITE DDS, HI J 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 10/10/2012 305.1 TOBA AVIATION 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 ABUSE 10/10/2012 314.00 ADH D INATTENTIVE 10/10/2012 CHRISTOPHER VILLALOBOS APRN 30 5.1 TOBACCO ABUSE 10/10/2012 CHRISTOPHER VILLALOBOS APRN 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 10/10/2012 CHRISTOPHER VILLALOBOS APRN 30 5.1 TOBACCO ABUSE 10/10/2012 CHRISTOPHER VILLALOBOS APRN 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 10/10/2012 CHRISTOPHER VILLALOBOS APRN 30 5.1 TOBACCO ABUSE 10/10/2012 WILFREDO SERVER ADMINISTRATOR, CHRISTOPHER T 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 10/10/2012 CHRISTOPHER [...] MIXED SEVERE W/O PSYCHOTIC BEHAVIOR 03/14/2014 CHRISTOPHER VILLALBOOS APRN 296.63 MO BIPOLAR I MIXED SEVERE [...] 02/10/2016 SERA PRUITT MD Ot Z79 .4 LONG-TERM (CURRENT) USE OF INSULIN Procedures Code [place] [address] A1C (IN-HOUSE) 09/19/2012 90496 ROUT INE VENIPUNCTURE 09/21/2012 81206 MICR O ALBUMIN-IN HOUSE 09/21/2012 99387 CBC 09/21/2012 32450 LIPI D PANEL 09/21/2012 94537 CMP 09/21/2012 [id number] GF R CALC (RESULT ONLY) 09/21/2012 49167 A1C (IN-HOUSE) 12/24/2012 26660 A1C (IN-HOUSE) 05/24/2013 78921 ROUT INE VENIPUNCTURE 05/27/2013 35280 CBC 05/27/2013 46646 CMP 05/27/2013 52445 LIPI D PANEL 05/27/2013 [id number] GF R CALC (RESULT ONLY) 05/27/2013 28272 RA FACTOR 05/27/2013 94514 MICR O ALBUMIN-IN HOUSE 09/16/2013 05741 A1C (IN-HOUSE) 09/16/2013 90409 PSYC H DIAGNOSTIC EVALUATION 01/24/2014 87645 A1C (IN-HOUSE) 02/03/2014 34058 PSYT X PT&/FAMILY 45 MINUTES 02/17/2014 33218 PSYT X PT&/FAMILY 30 MINUTES 03/14/2014 09616 PSYT X PT&/FAMILY 30 MINUTES 03/26/2014 68185 PSYT X PT&/FAMILY 30 MINUTES 03/28/2014 00343 PSYT X PT&/FAMILY 30 MINUTES 03/28/2014 45766 A1C (IN-HOUSE) 05/21/2014 Results There is no data. Encounters ACCT No. Visit Date/Time Discharge Status Pt. Type Provider Facility Loc./Unit Complaint [id number] 07/12/2019 13:40:00 07/12/2019 23:59: 59 CLS Outpatient [facility] [id number] 02/10/2016 02:18:00 016 16:58:00 DIS Inpatient EDMOND SOLER, SERA Blanc [facility] ICU SUICIDE ATTEMPT,INSULIN OVERDOSE,HYPERGLYCEMIA [id number] 12/02/2013 12:16:00 014 15:02:00 DIS Emergency BARRIE DO, TURNER blanc [facility] ER ABDOMINAL PAIN [id number] 09/05/2014 11:09:00 09/05/2014 23:59: 59 CLS Outpatient CHRISTOPHER VILLALOBOS APRN [id number] 05/21/2014 09:59:00 05/21/2014 23:59: 59 CLS Outpatient CHRISTOPHER VILLALOBOS APRN [id number] 03/14/2014 15:22:00 03/14/2014 23:59: 59 CLS Outpatient CORDELL VILLANUEVA [id number] 03/03/2014 08:32:00 03/03/2014 23:59: 59 CLS Outpatient CHRISTOPHER VILLALOBOS APRN [id number] 02/14/2014 16:03:00 02/14/2014 23:59: 59 CLS Outpatient CORDELL VILLANUEVA [id number] 02/03/2014 16:18:00 02/03/2014 23:59: 59 CLS Outpatient CHRISTOPHER VILLALOBOS APRN [id number] 01/24/2014 13:38:00 01/24/2014 23:59: 59 CLS Outpatient CORDELL VILLANUEVA [id number] 11/15/2013 14:34:00 11/15/2013 23:59: 59 CLS Outpatient CHRISTOPHER VILLALOBOS APRN [id number] 10/16/2013 10:27:00 10/16/2013 23:59: 59 CLS Outpatient CHRISTOPHER VILLALOBOS APRN [id number] 09/16/2013 14:15:00 09/16/2013 23:59: 59 CLS Outpatient CHRISTOPHER VILLALOBOS APRN [id number] 07/31/2013 14:46:00 07/31/2013 23:59: 59 CLS Outpatient CHRISTOPHER VILLALOBOS APRN [id number] 07/03/2013 15:04:00 07/03/2013 23:59: 59 CLS Outpatient CHRISTOPHER VILLALOBOS APRN [id number] 05/29/2013 08:38:00 05/29/2013 23:59: 59 CLS Outpatient [id number] 05/27/2013 09:06:00 05/27/2013 23:59: 59 CLS Outpatient HI [place] DDS [id number] 05/24/2013 14:15:00 05/24/2013 23:59: 59 CLS Outpatient CHRISTOPHER VILLALOBOS APRN [id number] 12/24/2012 09:40:00 12/24/2012 23:59: 59 CLS Outpatient CHRISTOPHER VILLALOBOS APRN Anil [id number] 11/23/2012 10:20:00 11/23/2012 23:59: 59 CLS Outpatient CHRISTOPHER VILLALOBOS APRN [id number] 10/24/2012 13:51:00 10/24/2012 23:59: 59 CLS Outpatient CHRISTOPHER VILLALOBOS APRN [id number] 10/10/2012 09:46:00 10/10/2012 23:59: 59 CLS Outpatient CHRISTOPHER VILLALOBOS APRN [id number] 09/21/2012 08:22:00 09/21/2012 23:59: 59 CLS Outpatient CHRISTOPHER VILLALOBOS APRN Anil [id number] 09/19/2012 11:01:00 09/19/2012 23:59: 59 CLS Outpatient CHRISTOPHER VILLALOBOS APRN Anil [id number] 12/05/2012 16:09:00 Document Registration
[2020-01-16 01:32] LABS: AMPHETAMINE SCREEN, URINE POSITIVE (NEGATIVE); BARBITURATE SCREEN URINE NEGATIVE (NEGATIVE); BENZODIAZEPINES SCREEN URINE NEGATIVE (NEGATIVE); CANNABINOID SCREEN, URINE POSITIVE (NEGATIVE); COCAINE SCREEN URINE NEGATIVE (NEGATIVE); METHADONE STAT NEGATIVE (NEGATIVE); METHAMPHETAMINE SCREEN URINE S NEGATIVE (NEGATIVE); OPIATE SCREEN URINE NEGATIVE (NEGATIVE); OXYCODONE STAT NEGATIVE (NEGATIVE); PROPOXYPHENE STAT NEGATIVE (NEGATIVE); TRICYCLIC ANTIDEPRESSANTS SCRE NEGATIVE (NEGATIVE)
[2020-01-16] MEDS ORDERED: DEXTROSE 50% 50 ML (IMS) SYR ONE (02:39)
[2020-01-16] MEDS: D5W 1000 ML IV SOLUTION 1,000 ML IV SCH (02:55)
[2020-01-16] MEDS: DEXTROSE 10% IV SOLUTION 1,000 ML IV SCH ×2 (03:11→14:38)
[2020-01-16 03:14] LABS: MEAN PLATELET VOLUME 10.9 FL (7.4-10.4); RED CELL DISTRIBUTION WIDTH 13.7 % (10.0-14.5); WHITE BLOOD COUNT 9.8 10^3/uL (4.3-11.0)
[2020-01-16] MEDS ORDERED: diphenhydrAMINE 50 MG/ML INJ (BENADRYL) IV PRN (03:15)
[2020-01-16] MEDS ORDERED: D5 1/2 NS IV 1,000 ML IV SCH (03:15)
[2020-01-16] MEDS ORDERED: HALOPERIDOL 5 MG/ML (HALDOL) AMP IM PRN (03:15)
[2020-01-16] MEDS ORDERED: REGULAR inSUlin DRIP 250 UNITS/NS 250 ML IV SCH ×2 (03:15)
[2020-01-16] MEDS ORDERED: 1/2 NS IV SOLUTION 1,000 ML IV SCH (03:15)
[2020-01-16] MEDS ORDERED: POTASSIUM CL 10MEQ/50ML IVPB 50 ML IV SCH (03:15)
[2020-01-16] MEDS ORDERED: LORazepam INJ 2 MG/ML (ATIVAN) VIAL IV PRN ×2 (03:15→07:15)
[2020-01-16 03:34] LABS: CHLORIDE 110 MMOL/L (98-107); POTASSIUM 4.1 MMOL/L (3.6-5.0); SODIUM 142 MMOL/L (135-145)
[2020-01-16 03:35] LABS: GLUCOSE 85 MG/DL (70-105)
[2020-01-16 03:37] LABS: CARBON DIOXIDE 22 MMOL/L (21-32)
[2020-01-16] MEDS ORDERED: DexMEDEtomidine 250 ML DRIP 250 ML IV ONE (03:37)
[2020-01-16 03:39] LABS: CREATININE SERUM 0.81 MG/DL (0.60-1.30); GFR ESTIMATED > 60
[2020-01-16 03:40] LABS: BUN/CREATININE RATIO 23
[2020-01-16] MEDS ORDERED: DexMEDEtomidine 250 ML DRIP 250 ML IV SCH (03:45)
[2020-01-16] MEDS ORDERED: LACTATED RINGERS 2,000 ML IV ONE (05:03)
--- NOTE | 2020-01-16 05:03 | Pulmonary Consultation ---
History of Present Illness History of Present Illness Date Seen by Provider: January 16, 2020 Time Seen by Provider: 04:58 Date of Admission History of Present Illness 39 yo with hx of paranoid schizophrenia and drug use presented to ED secondary to acute psychosis and agitation. Pt is currently in 4 point leather restraints. Allergies and Home Medications Allergies Coded Allergies: No Known Drug Allergies (Unverified , 12/02/13) Home Medications Insulin Aspart 300 Units/3 Ml Solution, 10 UNITS SQ AC, (Reported) LAST P/U THROUGH PALS 08/2015 FOR 3 BOXES Insulin Detemir 100 Unit/1 Ml Insuln.pen, 40 UNITS SQ HS, (Reported) LAST P/U 11/04/15 THROUGH PALS FOR 3 BOXES Past Lajlhjk-[id number]-Hqrquc Hx Patient Social History Alcohol Use: Occasionally Uses (HISTORY OF ABUSE, NOW ONLY "OCCASIONALLY" DRINKS) Recreational Drug Use: Yes (+ IV METH AND COCAINE, THC, OTHERS) Drug of Choice: +IV METH AND COCAINE, THC, OTHERS Smoking Status: Current Everyday Smoker (1-2 PPD) Type Used: Cigarettes 2nd Hand Smoke Exposure: Yes Recent Foreign Travel: No Contact w/Someone Who Travel: No Recent Infectious Disease Expo: No Recent Hopitalizations: No Physical Abuse: No Sexual Abuse: No Mistreated: No Fear: No Immunizations Up To Date Tetanus Booster (TDap): Unknown Seasonal Allergies Seasonal Allergies: No Past Medical History Surgeries: Yes (I&D OF ABSCESS TO CHIN/NECK AREA) Respiratory: No Currently Using CPAP: No Currently Using BIPAP: No Cardiac: No Neurological: No Genitourinary: No Gastrointestinal: Yes (HEPATITIS) Liver Disease/Jaundice, Hepatitis Musculoskeletal: No Endocrine: Yes (TYPE 1 DIABETES) Diabetes, Insulin dep HEENT: No Cancer: No Psychosocial: Yes (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) ADD/ADHD, Anxiety, Bipolar, Schizophrenia, Depression Integumentary: Yes (HX OF MRSA) Blood Disorders: No Family Medical History Alcoholism G8 BROTHER Arthritis Asthma 19 MOTHER (copd & hypotention) Cardiovascular disease 19 FATHER (cva) Completed stroke 19 FATHER Hypercholesterolemia 19 FATHER G8 SISTER Hypertension 19 FATHER Thyroid disease G8 SISTER (hyperthyroid) Review of Systems Time Seen by Provider: 05:10 Sepsis Event Evaluation Height, Weight, BMI Height: 5'8.00" Weight: 162lbs. 1.6oz. 73.804006wf; 23.42 BMI Method:Stated Exam Exam Vital Signs Date Time Temp Pulse Resp B/P (MAP) Pulse Ox O2 Delivery O2 Flow Rate FiO2 01/16/20 04:15 76 01/16/20 03:30 84 15 98 Room Air 01/16/20 03:05 96 Room Air 01/16/20 03:00 89 13 104/54 (71) 97 Room Air 01/16/20 02:30 97 14 101/55 (70) 97 Room Air 01/16/20 02:15 98 25 96/54 (68) 97 Room Air 01/16/20 02:00 100 18 101/58 (72) 97 Room Air 01/16/20 01:48 115 01/16/20 01:46 36.8 99 24 108/67 (81) 97 Room Air 01/16/20 01:45 96 Room Air 01/16/20 01:38 36.7 98 29 101/59 99 Room Air 01/16/20 00:11 36.3 121 36 124/95 (105) 98 Room Air I & O 01/16/20 07:00 Intake Total 2000 ml Output Total 350 ml Balance 1650 ml Height & Weight Height: 5'8.00" Weight: 162lbs. 1.6oz. 73.706669iu; 23.42 BMI Method:Stated General Appearance: WD/WN, Other (EXTREMELY ANXIOUS/AGITATED, CONSTANT MOVEMENTS OF ENTIRE BODY/THRASHING ALL OVER, SCREAMING AND YELLING WITH ANY INTERVENTION SUCH OBTAINING VITALS, STARTING IV, ETC. ) HEENT: PERRL/EOMI Neck: Normal Inspection Respiratory: Normal Breath Sounds, No Accessory Muscle Use, No Respiratory Distress Cardiovascular: No Edema, No Murmur, Tachycardia Capillary Refill: Less Than 3 Seconds Extremity: Normal Capillary Refill, Normal Range of Motion, Non Tender, No Calf Tenderness, No Pedal Edema, Other (MULTIPLE TRACK YARBROUGH OF VARIOUS AGES--SCARS, SCABS, SORES TO ARMS AND HANDS) Neurologic/Psychiatric: Alert, No Motor/Sensory Deficits, branch mechanic II-XII Norm as Tested, Other (UNABLE TO FULLY DETERMINE ORIENTATION DUE TO CURRENT STATE OF AGITATION, NEURO IS GROSSLY INTACT, BUT PT HAS DIFFICULTY FOLLOWING COMMANDS DUE TO AGITATION/ANXIETY--DIFFICULTY CONCENTRATING. ) Skin: Normal Color, Warm/Dry, Other (TRACK YARBROUGH NOTED ABOVE) Results Lab Laboratory Tests 01/16/20 00:14 01/16/20 02:32 Assessment/Plan Assessment/Plan paranoid schizophrenia -Geodon x 1 now -Pt has PRN Haldol -Ativan PRN -Precedex gtt IV drug use -UDS is positive for amphetamines and Marijuanna Hyperglycemia -- This is not DKA -D/C DKA protocol PEDRO TORRES DO January 16, 2020 05:03
[2020-01-16] MEDS ORDERED: LACTATED RINGERS 1,000 ML IV ONE (05:15)
[2020-01-16] MEDS ORDERED: ENOXAPARIN 40 MG/0.4 ML (LOVENOX) SYR SC SCH (05:15)
[2020-01-16 05:16] LABS: PHOSPHORUS 2.3 MG/DL (2.3-4.7)
[2020-01-16] MEDS: LACTATED RINGERS 1,000 ML IV SCH ×4 (05:27→19:57)
[2020-01-16] MEDS: POTASSIUM CL 10MEQ/50ML IVPB 50 ML IV SCH (05:28)
[2020-01-16] MEDS: MAGNESIUM 1 GM/100 ML IVPB 100 ML IV SCH (05:28)
[2020-01-16] MEDS: KCL 20 MEQ TAB (K-DUR) PO SCH (05:28)
--- NOTE | 2020-01-16 05:29 | NUR ---
TIMELINE NOTE 0330- PT BECAME INCREASINGLY AGITATED AND PULLING AT CATHETER AND ATTEMPTING TO GET OUT OF BED. ORDERED HALDOL GIVEN AT THIS TIME. 0340- NO DECREASE IN AGITATION AT THIS TIME. ORDERED ATIVAN AND BENADRYL GIVEN. MITTEN RESTRAINTS APPLIED. 0345- THIS RN, MARC, RN, APOLLO, RN AND RAUL, OUTSIDE CUTTER IN THE ROOM HOLDING PT DOWN AT THIS TIME. ORDERS RECEIVED FOR PRECEDEX DRIP FROM DR MORAN FROM [facility] ICU. 0400- PT STILL INCREASINGLY AGITATED AND ATTEMPTING TO GET UP. E-ICU CALLED AND ORDERS FOR LEATHER RESTRAINTS GIVEN. PT PLACED IN RESTRAINTS AT THIS TIME. 0410- DR TORRES TO SEE PT AT THIS TIME. AGREES WITH LEATHER RESTRAINT ORDER. WILL RE-EVALUATE IN 3 HR AFTER ORDER FROM DR MORAN EXPIRES.
[2020-01-16] MEDS ORDERED: ZIPRASIDONE INJECTION 10 MG in WATER (STERILE) FOR INJECTION 1.2 ML IM NR (06:22)
[2020-01-16] MEDS ORDERED: ZIPRASIDONE INJECTION 10 MG in WATER (STERILE) FOR INJECTION 1.2 ML IM PRN (06:30)
[2020-01-16] MEDS: ENOXAPARIN 40 MG/0.4 ML (LOVENOX) SYR SQ SCH (06:34)
--- NOTE | 2020-01-16 10:42 | History & Physical ---
HPI History of Present Illness: 30 yo male brought to hospital due to confusion, agitation and found to have high blood sugar. He admitted to recent IV methamphetamine use. Due to severe agitation required multiple doses of sedating medications and ultimately Precedex drip overnight which has since been held due to hypotension and near bradycardia. He remains sedated this morning except when blood pressure cuff goes off he begins to moan, roll and pull at lines. His blood sugar was over 700 on arrival, but rapidly decreased to less than 100, not needing insulin drip and on D5 continuous now to keep blood sugar adequate. Exam Limitations: clinical condition Date seen by provider: January 16, 2020 Time Seen by Provider: 09:15 Attending Physician Latricia Reed MD [facility] [place] Consult Date of Admission January 16, 2020 at 00:55 Home Medications Home Medications Reviewed patient Home Medication Reconciliation performed by pharmacy medication reconciliations senior service technician and/or nursing. Patients Allergies have been reviewed. Allergies Coded Allergies: No Known Drug Allergies (Unverified , 12/02/13) [id number]-[id number] Hx Patient Social History Alcohol Use: Occasionally Uses (HISTORY OF ABUSE, NOW ONLY "OCCASIONALLY" DRINKS) Recreational Drug Use: Yes (+ IV METH AND COCAINE, THC, OTHERS) Drug of Choice: +IV METH AND COCAINE, THC, OTHERS Smoking Status: Current Everyday Smoker (1-2 PPD) Type Used: Cigarettes 2nd Hand Smoke Exposure: Yes Recent Foreign Travel: No Contact w/other who traveled: No Recent Hopitalizations: No Recent Infectious Disease Expo: No Immunizations Up To Date Tetanus Booster (TDap): Unknown Past Medical History PMHx: DMI Schizoaffective Depression Family Medical History Family History: Alcoholism G8 BROTHER Arthritis Asthma 19 MOTHER (copd & hypotention) Cardiovascular disease 19 FATHER (cva) Completed stroke 19 FATHER Hypercholesterolemia 19 FATHER G8 SISTER Hypertension 19 FATHER Thyroid disease G8 SISTER (hyperthyroid) Review of Systems ([facility]) Constitutional: other (unable to obtain due to patient condition) Reviewed Test Results Reviewed Test Results Lab Laboratory Tests Test 01/16/20 00:14 01/16/20 00:16 01/16/20 00:20 01/16/20 00:28 Range/Units White Blood Count 10.6 4.3-11.0 10^3/uL Red Blood Count 4.34 L 4.35-5.85 10^6/uL Hemoglobin 13.6 13.3-17.7 G/DL Hematocrit 39 L 40-54 % Mean Corpuscular Volume 89 80-99 FL Mean Corpuscular Hemoglobin 31 25-34 PG Mean Corpuscular Hemoglobin Concent 35 32-36 G/DL Red Cell Distribution Width 13.8 10.0-14.5 % Platelet Count 310 130-400 10^3/uL Mean Platelet Volume 11.1 H 7.4-10.4 FL Neutrophils (%) (Auto) 62 42-75 % Lymphocytes (%) (Auto) 28 12-44 % Monocytes (%) (Auto) 6 0-12 % Eosinophils (%) (Auto) 3 0-10 % Basophils (%) (Auto) 1 0-10 % Neutrophils # (Auto) 6.6 1.8-7.8 X 10^3 Lymphocytes # (Auto) 2.9 1.0-4.0 X 10^3 Monocytes # (Auto) 0.6 0.0-1.0 X 10^3 Eosinophils # (Auto) 0.3 0.0-0.3 10^3/uL Basophils # (Auto) 0.1 0.0-0.1 10^3/uL Prothrombin Time 13.8 12.2-14.7 SEC INR Comment 1.0 0.8-1.4 Activated Partial Thromboplast Time 27 24-35 SEC Sodium Level 131 L 135-145 MMOL/L Potassium Level 5.3 H 3.6-5.0 MMOL/L Chloride Level 98 98-107 MMOL/L Carbon Dioxide Level 19 L 21-32 MMOL/L Anion Gap 14 5-14 MMOL/L Blood Urea Nitrogen 20 H 7-18 MG/DL Creatinine 1.38 H 0.60-1.30 MG/DL Estimat Glomerular Filtration Rate 57 BUN/Creatinine Ratio 14 Glucose Level 732 *H 70-105 MG/DL Calcium Level 9.2 8.5-10.1 MG/DL Corrected Calcium 9.3 8.5-10.1 MG/DL Magnesium Level 1.9 1.6-2.4 MG/DL Total Bilirubin 1.1 H 0.1-1.0 MG/DL Aspartate Amino Transf (AST/SGOT) 19 5-34 U/L Alanine Aminotransferase (ALT/SGPT) 23 0-55 U/L Alkaline Phosphatase 114 40-136 U/L Total Protein 6.8 6.4-8.2 GM/DL Albumin 3.9 3.2-4.5 GM/DL Amylase Level 29 25-125 U/L Lipase 45 8-78 U/L TSH [place] Testing 1.25 0.35-4.94 UIU/ML Acetaminophen Level < 10 L 10-30 UG/ML Serum Alcohol < 10 <10 MG/DL Glucometer > 600 *H 70-110 MG/DL Blood Gas Puncture Site RT RADIAL Blood Gas Patient Temperature 36.3 Arterial Blood pH 7.51 H 7.37-7.43 Arterial Blood Partial Pressure CO2 27 L 35-45 MMHG Arterial Blood Partial Pressure O2 156 H 79-93 MMHG Arterial Blood HCO3 21 L 23-27 MMOL/L Arterial Blood Total CO2 22.1 21.0-31.0 MMOL/L Arterial Blood Oxygen Saturation 100 94-100 % Arterial Blood Base Excess -1.5 -2.5-2.5 MMOL/L Rommel Test P Blood Gas Ventilator Setting NO Blood Gas Inspired Oxygen ROOM AIR Lactic Acid Level 3.42 *H 0.50-2.00 MMOL/L Test 01/16/20 01:05 01/16/20 01:28 01/16/20 01:50 01/16/20 02:32 Range/Units Urine Color YELLOW Urine Clarity CLEAR Urine pH 6.5 5-9 Urine Specific [place] <=1.005 1.016-1.022 Urine Protein NEGATIVE NEGATIVE Urine Glucose (UA) 3+ H NEGATIVE Urine Ketones NEGATIVE NEGATIVE Urine Nitrite NEGATIVE NEGATIVE Urine Bilirubin NEGATIVE NEGATIVE Urine Urobilinogen 0.2 < = 1.0 MG/DL Urine Leukocyte Esterase NEGATIVE NEGATIVE Urine RBC (Auto) NEGATIVE NEGATIVE Urine RBC 0-2 /HPF Urine WBC NONE /HPF Urine Crystals NONE /LPF Urine Bacteria NEGATIVE /HPF Urine Casts NONE /LPF Urine Mucus NEGATIVE /LPF Urine Culture Indicated NO Urine Opiates Screen NEGATIVE NEGATIVE Urine Oxycodone Screen NEGATIVE NEGATIVE Urine Methadone Screen NEGATIVE NEGATIVE Urine Propoxyphene Screen NEGATIVE NEGATIVE Urine Barbiturates Screen NEGATIVE NEGATIVE Ur Tricyclic Antidepressants Screen NEGATIVE NEGATIVE Urine Phencyclidine Screen NEGATIVE NEGATIVE Urine Amphetamines Screen POSITIVE H NEGATIVE Urine Methamphetamines Screen NEGATIVE NEGATIVE Urine Benzodiazepines Screen NEGATIVE NEGATIVE Urine Cocaine Screen NEGATIVE NEGATIVE Urine Cannabinoids Screen POSITIVE H NEGATIVE Glucometer 318 H 181 H 70-110 MG/DL White Blood Count 9.8 4.3-11.0 10^3/uL Red Blood Count 4.13 L 4.35-5.85 10^6/uL Hemoglobin 13.0 L 13.3-17.7 G/DL Hematocrit 37 L 40-54 % Mean Corpuscular Volume 89 80-99 FL Mean Corpuscular Hemoglobin 31 25-34 PG Mean Corpuscular Hemoglobin Concent 35 32-36 G/DL Red Cell Distribution Width 13.7 10.0-14.5 % Platelet Count 284 130-400 10^3/uL Mean Platelet Volume 10.9 H 7.4-10.4 FL Sodium Level 142 135-145 MMOL/L Potassium Level 4.1 3.6-5.0 MMOL/L Chloride Level 110 #H 98-107 MMOL/L Carbon Dioxide Level 22 21-32 MMOL/L Anion Gap 10 5-14 MMOL/L Blood Urea Nitrogen 19 H 7-18 MG/DL Creatinine 0.81 0.60-1.30 MG/DL Estimat Glomerular Filtration Rate > 60 BUN/Creatinine Ratio 23 Glucose Level 85 70-105 MG/DL Lactic Acid Level 1.30 0.50-2.00 MMOL/L Calcium Level 9.0 8.5-10.1 MG/DL Phosphorus Level 2.3 2.3-4.7 MG/DL Magnesium Level 2.0 1.6-2.4 MG/DL Test 01/16/20 02:43 01/16/20 03:54 01/16/20 04:40 01/16/20 05:41 Range/Units Glucometer 97 156 H 125 H 122 H 70-110 MG/DL Test 01/16/20 07:50 01/16/20 09:48 Range/Units Glucometer 115 H 154 H 70-110 MG/DL Physical Exam-([facility]) Physical Exam Vital Signs VS - Last 72 Hours, by Label 01/16/20 01/16/20 01/16/20 01/16/20 00:11 01:38 01:45 01:46 Temp 36.3 36.7 36.8 Pulse 121 98 99 Resp 36 29 24 B/P (MAP) 124/95 (105) 101/59 108/67 (81) Pulse Ox 98 99 96 97 O2 Delivery Room Air Room Air Room Air Room Air 01/16/20 01/16/20 01/16/20 01/16/20 01:48 02:00 02:15 02:30 Pulse 115 100 98 97 Resp 18 25 14 B/P (MAP) 101/58 (72) 96/54 (68) 101/55 (70) Pulse Ox 97 97 97 O2 Delivery Room Air Room Air Room Air 01/16/20 01/16/20 01/16/20 01/16/20 03:00 03:05 03:30 04:00 Pulse 89 84 86 Resp 13 15 27 B/P (MAP) 104/54 (71) 106/80 (89) Pulse Ox 97 96 98 99 O2 Delivery Room Air Room Air Room Air Room Air 01/16/20 01/16/20 01/16/20 01/16/20 04:15 05:00 06:00 07:00 Pulse 76 75 64 64 Resp 24 25 21 B/P (MAP) 90/55 (67) 90/55 (67) 89/56 (67) Pulse Ox 99 94 97 O2 Delivery Room Air Room Air Room Air 01/16/20 01/16/20 01/16/20 01/16/20 07:02 07:25 08:00 08:00 Temp 36.5 Pulse 63 64 Resp 12 B/P (MAP) 91/54 (66) Pulse Ox 97 97 O2 Delivery Room Air Room Air Capillary Refill : Less Than 3 Seconds General Appearance: no apparent distress, other (sedated) Respiratory: lungs clear, normal breath sounds Cardiovascular: regular rate, rhythm, no murmur Peripheral Pulses: 2+ Dorsalis Pedis (R), 2+ Left Dors-Pedis (L) Gastrointestinal: normal bowel sounds, non tender, soft Extremities: no pedal edema Neurologic/Psychiatric: other (moans in response to questions, moving all extremities) Skin: other (scabbed lesion near right edge of mouth) Assessment/Plan Assessment/Plan Admission Status: Inpatient Order (span 2 midnights) Reason for Inpatient Admission: Severe agitation and hyperglycemia (1) Acute psychosis Status: Acute Assessment & Plan: Requiring multiple sedating medications last night. Suspect secondary to combination of behavioral health disorders, methamphetamine use and marked hyperglycemia. currently has haloperidol, ziprasidone and lorazepam prn available. Precedex drip held due to hypotension. (2) Uncontrolled type 1 diabetes mellitus Status: Acute Assessment & Plan: Markedly elevated glucose on admit but without acidosis. Blood sugar normalized with insulin overnight. Sliding scale insulin. Qualifiers: Qualified Codes: E10.65 - Type 1 diabetes mellitus with hyperglycemia (3) Schizoaffective disorder Status: Chronic (4) Methamphetamine abuse Status: Chronic (5) Hyperkalemia Status: Resolved (6) Hyponatremia Status: Resolved Assessment & Plan: Pseudohyponatremia secondary to hyperglycemia. (7) Acute renal insufficiency Status: Resolved Assessment & Plan: Resolved overnight with hydration. (8) Hypotension Status: Acute Assessment & Plan: Received 2 liter boluses since admission along with continuous IVF. Suspect secondary to sedating medications. Repeat LR 1000 cc bolus now. No evidence of infection. (9) DVT prophylaxis Status: Acute Assessment & Plan: Enoxaparin Clinical Quality Measures DVT/VTE Risk/Contraindication: Risk Factor Score Per Nursin RFS Level Per Nursing on Admit: 4+=Very High LATRICIA REED MD January 16, 2020 10:42
[2020-01-16] MEDS ORDERED: INSU100I32 SQ (10:54)
[2020-01-16] MEDS ORDERED: INSU100I55 SQ (10:54)
[2020-01-16] MEDS ORDERED: inSUlin ASPART (NovoLOG) 1 UNIT/0.01 ML (CHARGE PER UNIT) SC PRN (11:00)
[2020-01-16] MEDS ORDERED: ENOXAPARIN 40 MG/0.4 ML (LOVENOX) SYR SQ SCH (11:00)
[2020-01-16] MEDS: inSUlin ASPART (NovoLOG) 1 UNIT/0.01 ML (CHARGE PER UNIT) SC SCH ×4 (16:30→23:37)
[2020-01-17] VITALS (11 sets, daily range): BP systolic 99–138; BP diastolic 51–91
[2020-01-17] MEDS: D5W 1000 ML IV SOLUTION 1,000 ML IV SCH ×2 (02:16→10:10)
[2020-01-17] MEDS: LACTATED RINGERS 1,000 ML IV SCH ×2 (02:38→10:10)
[2020-01-17] MEDS ORDERED: DEXTROSE 50% 50 ML (IMS) SYR ONE (03:24)
--- NOTE | 2020-01-17 03:36 | NUR ---
THIS RN ADMINISTERED 25ML OF D50 DUE TO PT BLOOD SUGAR LEVEL OF 60 AND RESTARTED D5W AT 30ML/HR, WILL CONTINUE TO MONITOR BLOOD SUGAR LEVELS. Addendum: 01/17/20 at 0343 by RUTH LY RN BARCODE NOT SCANNED ON E-MAR DUE TO D50 BEING IN A VIAL RATHER THAN THE NORMAL D50 EMERGENCY SYRINGE.
[2020-01-17 03:43] LABS: BASOPHILS # (AUTO) 0.1 10^3/uL (0.0-0.1); BASOPHILS % (AUTO) 1 % (0-10); EOSINOPHILS # (AUTO) 0.3 10^3/uL (0.0-0.3); EOSINOPHILS % (AUTO) 4 % (0-10); HEMATOCRIT 38 % (40-54); HEMOGLOBIN 12.8 G/DL (13.3-17.7); LYMPHOCYTES # (AUTO) 3.5 X 10^3 (1.0-4.0); LYMPHOCYTES % (AUTO) 44 % (12-44); MEAN CORPUSCULAR HEMOGLOBIN 31 PG (25-34); MEAN CORPUSCULAR HGB CONC 34 G/DL (32-36); MEAN CORPUSCULAR VOLUME 92 FL (80-99); MEAN PLATELET VOLUME 10.8 FL (7.4-10.4); MONOCYTES # (AUTO) 0.5 X 10^3 (0.0-1.0); MONOCYTES % (AUTO) 6 % (0-12); NEUTROPHILS # (AUTO) 3.6 X 10^3 (1.8-7.8); NEUTROPHILS % (AUTO) 46 % (42-75); PLATELET COUNT 233 10^3/uL (130-400); RED CELL DISTRIBUTION WIDTH 13.8 % (10.0-14.5)
[2020-01-17] MEDS: inSUlin ASPART (NovoLOG) 1 UNIT/0.01 ML (CHARGE PER UNIT) SC SCH (03:45)
[2020-01-17] MEDS ORDERED: DEXTROSE 50% 50 ML (IMS) SYR IV ONE (03:45)
[2020-01-17 04:02] LABS: CHLORIDE 108 MMOL/L (98-107); POTASSIUM 3.7 MMOL/L (3.6-5.0); SODIUM 138 MMOL/L (135-145)
[2020-01-17 04:03] LABS: CALCIUM 8.1 MG/DL (8.5-10.1)
[2020-01-17 04:05] LABS: CARBON DIOXIDE 22 MMOL/L (21-32)
--- NOTE | 2020-01-17 04:05 | NUR ---
REPEAT BLOOD SUGAR LEVEL 108.
[2020-01-17 04:07] LABS: GLUCOSE 59 MG/DL (70-105)
[2020-01-17 04:08] LABS: BUN/CREATININE RATIO 15; CREATININE SERUM 0.71 MG/DL (0.60-1.30); GFR ESTIMATED > 60
[2020-01-17] MEDS: KCL 20 MEQ TAB (K-DUR) PO SCH (04:09)
[2020-01-17] MEDS: POTASSIUM CL 10MEQ/50ML IVPB 50 ML IV SCH (04:09)
[2020-01-17 04:10] LABS: MAGNESIUM 1.8 MG/DL (1.6-2.4)
[2020-01-17] MEDS: MAGNESIUM 1 GM/100 ML IVPB 100 ML IV SCH (04:11)
--- NOTE | 2020-01-17 05:11 | Pulmonary Progress Note ---
Subjective Date Seen by a Provider: January 17, 2020 Time Seen by a Provider: 05:05 Subjective/Events-last exam Pt appears to be doing better. Sepsis Event Evaluation Height, Weight, BMI Height: 5'8.00" Weight: 162lbs. 1.6oz. 73.834818qe; 23.42 BMI Method:Stated Focused Exam Lactate Level 01/16/20 00:28: Lactic Acid Level 3.42*H 01/16/20 02:32: Lactic Acid Level 1.30 Exam Exam Vital Signs Date Time Temp Pulse Resp B/P (MAP) Pulse Ox O2 Delivery O2 Flow Rate FiO2 01/17/20 03:26 36.6 01/17/20 03:23 Room Air 01/17/20 03:21 66 101/70 01/17/20 02:14 66 119/76 01/17/20 02:00 71 21 119/76 (90) 97 Room Air 01/17/20 01:00 80 01/17/20 01:00 75 16 126/79 (95) 99 Room Air 01/17/20 00:40 76 138/79 01/17/20 00:00 73 18 138/79 (98) 97 Room Air 01/16/20 23:55 75 132/80 01/16/20 23:31 36.9 01/16/20 23:25 Room Air 01/16/20 23:00 75 29 132/80 (97) 97 Room Air 01/16/20 22:00 78 16 120/54 (76) 98 Room Air 01/16/20 21:00 80 24 124/74 (91) 98 Room Air 01/16/20 20:00 80 19 120/79 (93) 99 Room Air 01/16/20 19:23 Room Air 01/16/20 19:19 37.2 01/16/20 19:00 80 01/16/20 19:00 73 13 122/76 (91) 98 Room Air 01/16/20 18:00 80 21 105/56 (72) 100 Room Air 01/16/20 17:00 75 27 98/62 (74) 99 Room Air 01/16/20 16:21 100 Room Air 01/16/20 16:00 77 39 93/53 (66) 97 Room Air 01/16/20 15:00 82 42 105/72 (83) 98 Room Air 01/16/20 14:00 71 21 102/70 (81) Room Air 01/16/20 13:02 84 01/16/20 13:00 73 21 97/68 (78) 96 Room Air 01/16/20 12:00 36.6 01/16/20 12:00 67 21 87/53 (64) 96 Room Air 01/16/20 11:27 98 Room Air 01/16/20 11:00 67 20 88/56 (67) 98 Room Air 01/16/20 10:00 64 20 85/58 (67) 97 Room Air 01/16/20 09:00 60 21 85/56 (66) 97 Room Air 01/16/20 08:00 36.5 01/16/20 08:00 64 12 91/54 (66) 97 Room Air 01/16/20 07:25 97 Room Air 01/16/20 07:02 63 01/16/20 07:00 64 21 89/56 (67) 97 Room Air 01/16/20 06:00 64 25 90/55 (67) 94 Room Air I & O 01/17/20 07:00 Intake Total 2000 ml Output Total 1475 ml Balance 525 ml Height & Weight Height: 5'8.00" Weight: 162lbs. 1.6oz. 73.887036sg; 23.42 BMI Method:Stated General Appearance: WD/WN, Other (EXTREMELY ANXIOUS/AGITATED, CONSTANT MOV EMENTS OF ENTIRE BODY/THRASHING ALL OVER, SCREAMING AND YELLING WITH ANY INTERVENTION SUCH OBTAINING VITALS, STARTING IV, ETC. ) HEENT: PERRL/EOMI Neck: Normal Inspection Respiratory: Normal Breath Sounds, No Accessory Muscle Use, No Respiratory Distress Cardiovascular: No Edema, No Murmur, Tachycardia Capillary Refill: Less Than 3 Seconds Peripheral Pulses: 2+ Dorsalis Pedis (R), 2+ Left Dors-Pedis (L) Gastrointestinal: normal bowel sounds, non tender, soft Extremity: Normal Capillary Refill, Normal Range of Motion, Non Tender, No Calf Tenderness, No Pedal Edema, Other (MULTIPLE TRACK YARBROUGH OF VARIOUS AGES--SCARS, SCABS, SORES TO ARMS AND HANDS) Neurologic/Psychiatric: Alert, No Motor/Sensory Deficits, rifle case repairer II-XII Norm as Tested, Other (UNABLE TO FULLY DETERMINE ORIENTATION DUE TO CURRENT STATE OF AGITATION, NEURO IS GROSSLY INTACT, BUT PT HAS DIFFICULTY FOLLOWING COMMANDS DUE TO AGITATION/ANXIETY--DIFFICULTY CONCENTRATING. ) Skin: Normal Color, Warm/Dry, Other (TRACK YARBROUGH NOTED ABOVE) Results Lab Laboratory Tests 01/16/20 00:14 01/16/20 02:32 01/17/20 03:17 Assessment/Plan Assessment/Plan paranoid schizophrenia -Pt has PRN Haldol -Ativan PRN -Precedex gtt-- D/C IV drug use -UDS is positive for amphetamines and Marijuanna Hyperglycemia -- -Monitor PEDRO TORRES DO January 17, 2020 05:11
[2020-01-17] MEDS ORDERED: LACTATED RINGERS 1,000 ML IV SCH (05:15)
--- NOTE | 2020-01-17 05:24 | NUR ---
210ML PRECEDEX WASTED BY THIS RN AND WITNESSED BY MILANA ESTRADA.
[2020-01-17] MEDS: ENOXAPARIN 40 MG/0.4 ML (LOVENOX) SYR SQ SCH (06:08)
[2020-01-17] MEDS ORDERED: inSUlin ASPART (NovoLOG) 1 UNIT/0.01 ML (CHARGE PER UNIT) SC SCH (08:00)
--- NOTE | 2020-01-17 08:22 | Diagnostic Imaging Report ---
INDICATION: Uncontrolled diabetes, psychosis. COMPARISON: 12/02/2013 TECHNIQUE: Single radiograph of the chest dated 01/17/2020. FINDINGS: The cardiac silhouette is within normal limits in size. No significant pulmonary vascular congestion. The lungs are clear. No pleural effusion. No pneumothorax. No acute osseous abnormality. IMPRESSION: Stable exam without acute cardiopulmonary abnormality. Dictated by: Dictated on workstation # [id number]
[2020-01-17] MEDS ORDERED: PANTOPRAZOLE 40 MG (PROTONIX) TAB PO SCH (09:00)
[2020-01-17] MEDS ORDERED: risperiDONE 2 MG (RisperDAL) TAB PO SCH (09:00)
--- NOTE | 2020-01-17 09:31 | NUR ---
THIS NURSE GAVE REPORT TO RASHAD CORTÉS. PT WAS TAKEN DOWN VIA WHEELCHAIR WITH BELONGINGS. NURSE SOLORZANO NOTIFIED OF PT ARRIVAL.
--- NOTE | 2020-01-17 09:56 | NUR ---
TRANSFERRED FROM ICU TO ROOM 409. ALERT AND COOPERATIVE. C/O OF FEELING TIRED AND UNABLE TO REMEMBER WHAT HAPPENED THE LAST FEW DAYS. X 1 IV SITE TO LEFT FOREARM IN PLACE. RIGHT F/A SALINE LOCK IN PLACE. DENIES DISCOMFORT AT THIS TIME.
[2020-01-17] MEDS ORDERED: INSU100I14 SQ (10:03)
[2020-01-17] MEDS ORDERED: RISP1TAB3 PO (10:06)
--- NOTE | 2020-01-17 10:10 | Discharge Summary ---
Discharge Summary Hospital Course Problems/Diagnosis: (1) Acute psychosis Status: Resolved Resolution Date/Time: 01/17/20 @ 10:07 Assessment & Plan: Requiring multiple sedating medications last night. Suspect secondary to combination of behavioral health disorders, methamphetamine use and marked hyperglycemia. currently has haloperidol, ziprasidone and lorazepam prn available. Precedex drip held due to hypotension. 01/16 alert and appropriately interactive and oriented today. (2) Uncontrolled type 1 diabetes mellitus Status: Acute Assessment & Plan: Markedly elevated glucose on admit but without acidosis. Blood sugar normalized with insulin overnight. Sliding scale insulin. 01/16 glucose got low with treatment, required D5 on and off, glucose 200 this morning. He reports he has plenty of insulin at home, just hadn't been regularly taking it. Discussed importance of not missing doses. Qualifiers: Qualified Codes: E10.65 - Type 1 diabetes mellitus with hyperglycemia (3) Schizoaffective disorder Status: Chronic Assessment & Plan: He reports benefit in past with risperidone, chart review notes multiple previous medications. Will resume risperidone for now and scheduled with for follow up. Qualifiers: Qualified Codes: F25.0 - Schizoaffective disorder, bipolar type (4) Methamphetamine abuse Status: Chronic Assessment & Plan: Declines treatment referral. (5) Hyperkalemia Status: Resolved Resolution Date/Time: 01/16/20 @ 10:48 (6) Hyponatremia Status: Resolved Resolution Date/Time: 01/16/20 @ 10:48 Assessment & Plan: Pseudohyponatremia secondary to hyperglycemia. (7) Acute renal insufficiency Status: Resolved Resolution Date/Time: 01/16/20 @ 10:48 Assessment & Plan: Resolved overnight with hydration. (8) Hypotension Status: Resolved Resolution Date/Time: 01/17/20 @ 10:09 Assessment & Plan: Received 2 liter boluses since admission along with continuous IVF. Suspect secondary to sedating medications. Repeat LR 1000 cc bolus now. No evidence of infection. Hospital Course Date of Admission: January 16, 2020 at 00:55 Admission Diagnosis : Family Physician/[place] [place] [facility] Date of Discharge: 01/17/20 Discharge Diagnosis: See problem list Hospital Course: See problem list Labs and Pending Lab Test: Laboratory Tests 01/16/20 12:07: Glucometer 127H 01/16/20 16:29: Glucometer 116H 01/16/20 19:56: Glucometer 162H 01/16/20 23:33: Glucometer 242H 01/17/20 03:17: White Blood Count 8.0, Red Blood Count 4.13L, Hemoglobin 12.8L, Hematocrit 38L, Mean Corpuscular Volume 92, Mean Corpuscular Hemoglobin 31, Mean Corpuscular Hemoglobin Concent 34, Red Cell Distribution Width 13.8, Platelet Count 233, Mean Platelet Volume 10.8H, Neutrophils (%) (Auto) 46, Lymphocytes (%) (Auto) 44, Monocytes (%) (Auto) 6, Eosinophils (%) (Auto) 4, Basophils (%) (Auto) 1, Neutrophils # (Auto) 3.6, Lymphocytes # (Auto) 3.5, Monocytes # (Auto) 0.5, Eosinophils # (Auto) 0.3, Basophils # (Auto) 0.1, Sodium Level 138, Potassium Level 3.7, Chloride Level 108H, Carbon Dioxide Level 22, Anion Gap 8, Blood Urea Nitrogen 11, Creatinine 0.71, Estimat Glomerular Filtration Rate > 60, BUN/Creatinine Ratio 15, Glucose Level 59*L, Calcium Level 8.1L, Phosphorus Level 3.0, Magnesium Level 1.8 01/17/20 03:28: Glucometer 60*L 01/17/20 04:04: Glucometer 108 01/17/20 08:15: Glucometer 207H Microbiology 01/16/20 MRSA Screen - Final, Complete MRSA not isolated Home Meds Active Risperidone 1 Mg Tablet 1 Mg PO BID Reported Novolog Flexpen (Insulin Aspart) 300 Units/3 Ml Solution 16 Units SQ AC Tresiba Flextouch U-100 (Insulin Degludec) 100 Unit/1 Ml Insuln.pen 40 Unit SQ HS Assessment/Pt DC Instructions Follow up with Dr. Reed at [facility] on January 19 at 10 am. Follow up with Hermann in Behavioral Health at [facility] on 02/11 at 3 pm. Discharge Diet: ADA Diet Activity as Tolerated: Yes Discharge Physical Examination Allergies: Coded Allergies: No Known Drug Allergies (Unverified , 12/02/13) General Appearance: No Apparent Distress, WD/WN Respiratory: Lungs Clear Cardiovascular: Regular Rate, Rhythm, No Murmur Gastrointestinal: Normal Bowel Sounds, Non Tender, Soft Neurologic/Psychiatric: Alert, Normal Mood/Affect, Other (oriented to self, location, year but not sure of date due to poor memory of last few days) Copy Copies To 1: NAHUN LLAMAS MD Clinical Quality Measures DVT/VTE Risk/Contraindication: Risk Factor Score Per Nursin RFS Level Per Nursing on Admit: 4+=Very High LATRICIA REED MD January 17, 2020 10:10
--- NOTE | 2020-01-17 14:00 | NUR ---
6 Addendum: 01/17/20 at 1413 by RASHAD JOHNSON RN WRONG
--- NOTE | 2020-01-17 14:00 | NUR ---
DULCE NAVAS demonstrates understanding of discharge instructions and accurately returns instructions upon questioning. Copy of Post-Discharge Instructions given to PT. DULCE NAVAS is able to manage continuing needs after discharge. Patients belongings returned to PT. Patient discharged from [facility] on 01/17/20 at 1400 . DULCE NAVAS left floor via W/C, accompanied by STAFF AND FATHER PER AUTO.
--- NOTE | 2020-01-17 14:06 | NUR ---
CM/SS visited with the patient for discharge planning. Plan: The patient is having a friend pick him up and take him home. He reports that he does not live in [place] anymore and lives in [place]. The patient reports that he came into the hospital for hallucinations. He states he has never had that before but believes it was do to "gummies" he ate. He denies any drug use other than marijuana. The patient reports he used to have an addiction to Meth but has not used that in the last 3 months. He states that he is not currently seeing any one as a primary care physician or for mental health. CM/SS asked if the patient felt his substance use was a problem? He stated "no, not at this time." and did not want to seek out services. The patient is listed as self-pay; however, he has insurance. CM/SS contacted Registration to inform them. No further needs.
== END 2020-01-17 14:00 | disposition home or self-care (01) | DRG 638 ==
LOC: EDUNIT# 00:09 → ER 00:11 → ICU 00:55 → 4TH 01-17 09:51
PROVIDERS: ADMIT Family Medicine; ATTEND Family Medicine
DX: E10.65 Type 1 diabetes mellitus with hyperglycemia (principal); E87.2 Acidosis; F25.0 Schizoaffective disorder, bipolar type; F15.159 Other stimulant abuse with stimulant-induced psychotic disorder, unspecified; E87.1 Hypo-osmolality and hyponatremia; F31.9 Bipolar disorder, unspecified; F41.9 Anxiety disorder, unspecified; F90.9 Attention-deficit hyperactivity disorder, unspecified type; I95.2 Hypotension due to drugs; E86.0 Dehydration; E87.5 Hyperkalemia; N28.9 Disorder of kidney and ureter, unspecified; Z79.4 Long term (current) use of insulin; T42.75XA Adverse effect of unspecified antiepileptic and sedative-hypnotic drugs, initial encounter
CPT/HCPCS: 36415; 51702; 71045; 80048; 80053; 80306; 80320; 80329; 81000; 82150; 82805; 82962; 83036; 83605; 83690; 83735; 84100; 84443; 85025; 85027; 85610; 85730; 87081; 93005; 93041; 96361; 96374; 96375; 96376

== ENCOUNTER 2020-02-12 18:14 | Emergency (ER) | payer OTHER ==
[~2020-02-12] VITALS: Ht 175 cm; Wt 69.1 kg
[~2020-02-12 18:14] MED LIST changes: -HALOPERIDOL 5 MG/ML (HALDOL) AMP ONE; +INSU100I32 SQ; +INSU100I55 SQ; -LORazepam INJ 2 MG/ML (ATIVAN) VIAL ONE; -diphenhydrAMINE 50 MG/ML INJ (BENADRYL) ONE
[2020-02-12 18:22] VITALS: BP 148/93
--- NOTE | 2020-02-12 18:37 | ED General ---
General Stated Complaint: LEFT HAND NUMB,TINGLING Source of Information: Patient Exam Limitations: No Limitations History of Present Illness Date Seen by Provider: Feb 12, 2020 Time Seen by Provider: 18:35 Initial Comments To ER with reports of weird sensations throughout his body earlier today. These included a weird taste, dry mouth, chills body wide. No nausea no vomiting. Hasn't used methamphetamine in 2 weeks she states. Timing/Duration: 1-2 Days Severity: Moderate Allergies and Home Medications Allergies Coded Allergies: No Known Drug Allergies (Unverified , 12/02/13) Home Medications Insulin Aspart 300 Units/3 Ml Solution, 16 UNITS SQ AC, (Reported) Insulin Degludec 100 Unit/1 Ml Insuln.pen, 40 UNIT SQ HS, (Reported) Risperidone 1 Mg Tablet, 1 MG PO BID Prescribed by: LATRICIA ARTEAGA on 01/17/20 1006 Patient Home Medication List Home Medication List Reviewed: Yes Review of Systems Review of Systems Constitutional: see HPI EENTM: see HPI Respiratory: no symptoms reported Cardiovascular: no symptoms reported Genitourinary: no symptoms reported Musculoskeletal: no symptoms reported Skin: no symptoms reported Psychiatric/Neurological: See HPI, Anxiety Past Rfistqp-Hecmmy-Mudgij Hx Patient Social History Drug of Choice: +IV METH AND COCAINE, THC, OTHERS Type Used: Cigarettes 2nd Hand Smoke Exposure: Yes Recent Foreign Travel: No Contact w/Someone Who Travel: No Recent Hopitalizations: No Immunizations Up To Date Tetanus Booster (TDap): Unknown Seasonal Allergies Seasonal Allergies: No Past Medical History Surgeries: Yes (I&D OF ABSCESS TO CHIN/NECK AREA) Respiratory: No Currently Using CPAP: No Currently Using BIPAP: No Cardiac: No Neurological: No Genitourinary: No Gastrointestinal: Yes (HEPATITIS) Liver Disease/Jaundice, Hepatitis Musculoskeletal: No Endocrine: Yes (TYPE 1 DIABETES) Diabetes, Insulin dep HEENT: No Cancer: No Psychosocial: Yes (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) ADD/ADHD, Anxiety, Bipolar, Schizophrenia, Depression Integumentary: Yes (HX OF MRSA) Blood Disorders: No Family Medical History Alcoholism G8 BROTHER Arthritis Asthma 19 MOTHER (copd & hypotention) Cardiovascular disease 19 FATHER (cva) Completed stroke 19 FATHER Hypercholesterolemia 19 FATHER G8 SISTER Hypertension 19 FATHER Thyroid disease G8 SISTER (hyperthyroid) Physical Exam Vital Signs Capillary Refill : Height, Weight, BMI Height: 5'8.00" Weight: 162lbs. 1.6oz. [id number]; 23.42 BMI Method:Stated General Appearance: No Apparent Distress, WD/WN Eyes: Bilateral Eye Normal Inspection, Bilateral Eye PERRL, Bilateral Eye EOMI Neck: Full Range of Motion, Normal Inspection Respiratory: No Accessory Muscle Use, No Respiratory Distress Cardiovascular: Regular Rate, Rhythm, Normal Peripheral Pulses Gastrointestinal: Normal Bowel Sounds, Non Tender, Soft Extremity: Normal Capillary Refill, Normal Inspection Neurologic/Psychiatric: Alert, Oriented x3 Skin: Normal Color, Warm/Dry Progress/Results/Core Measures Suspected Sepsis SIRS Temperature: Pulse: Respiratory Rate: Laboratory Tests 02/12/20 18:30: White Blood Count 12.1H Blood Pressure / Mean: Laboratory Tests 02/12/20 18:30: Platelet Count 349 Results/Orders Lab Results Laboratory Tests Test 02/12/20 18:30 Range/Units White Blood Count 12.1 H 4.3-11.0 10^3/uL Red Blood Count 4.71 4.35-5.85 10^6/uL Hemoglobin 14.7 13.3-17.7 G/DL Hematocrit 42 40-54 % Mean Corpuscular Volume 88 80-99 FL Mean Corpuscular Hemoglobin 31 25-34 PG Mean Corpuscular Hemoglobin Concent 35 32-36 G/DL Red Cell Distribution Width 12.3 10.0-14.5 % Platelet Count 349 130-400 10^3/uL Mean Platelet Volume 10.8 H 7.4-10.4 FL Neutrophils (%) (Auto) 54 42-75 % Lymphocytes (%) (Auto) 35 12-44 % Monocytes (%) (Auto) 6 0-12 % Eosinophils (%) (Auto) 4 0-10 % Basophils (%) (Auto) 1 0-10 % Neutrophils # (Auto) 6.6 1.8-7.8 X 10^3 Lymphocytes # (Auto) 4.2 H 1.0-4.0 X 10^3 Monocytes # (Auto) 0.8 0.0-1.0 X 10^3 Eosinophils # (Auto) 0.5 H 0.0-0.3 10^3/uL Basophils # (Auto) 0.1 0.0-0.1 10^3/uL My Orders Orders - MOE SOLITARIO APRN Cbc With Automated Diff (02/12/20 18:33) Comprehensive Metabolic Panel (02/12/20 18:33) Ua Culture If Indicated (02/12/20 18:33) Drug Screen Stat (Urine) (02/12/20 18:33) Ed Iv/Invasive Line Start (02/12/20 18:33) Ns Iv 1000 Ml (Sodium Chloride 0.9%) (02/12/20 18:45) Lorazepam Injection (Ativan Injection) (02/12/20 18:45) Lorazepam Injection (Ativan Injection) (02/12/20 18:45) Medications Given in ED Current Medications Medications Dose Ordered Sig/Andre Route Start Time Stop Time Status Last Admin Dose Admin Lorazepam 1 mg ONCE PRN IVP 02/12/20 18:45 02/12/20 18:43 1 MG Vital Signs/I&O Capillary Refill : Departure Communication (Admissions) 6034-patient received 1 mg of lorazepam, this was just a few minutes ago. He now states he feels much better and would like to sign out AGAINST MEDICAL ADVICE. Labs are not yet back. Impression Primary Impression: Left against medical advice Disposition: 07 AGAINST MEDICAL ADVICE Condition: Against Medical Advice Departure-Patient Inst. Referrals: [facility] (PCP/Family) Primary Care Physician MOE SOLITARIO APRN Feb 12, 2020 18:37
[2020-02-12 18:45] LABS: BASOPHILS # (AUTO) 0.1 10^3/uL (0.0-0.1); BASOPHILS % (AUTO) 1 % (0-10); EOSINOPHILS # (AUTO) 0.5 10^3/uL (0.0-0.3); EOSINOPHILS % (AUTO) 4 % (0-10); HEMATOCRIT 42 % (40-54); HEMOGLOBIN 14.7 G/DL (13.3-17.7); LYMPHOCYTES # (AUTO) 4.2 X 10^3 (1.0-4.0); LYMPHOCYTES % (AUTO) 35 % (12-44); MEAN CORPUSCULAR HEMOGLOBIN 31 PG (25-34); MEAN CORPUSCULAR HGB CONC 35 G/DL (32-36); MEAN CORPUSCULAR VOLUME 88 FL (80-99); MEAN PLATELET VOLUME 10.8 FL (7.4-10.4); MONOCYTES # (AUTO) 0.8 X 10^3 (0.0-1.0); MONOCYTES % (AUTO) 6 % (0-12); NEUTROPHILS # (AUTO) 6.6 X 10^3 (1.8-7.8); NEUTROPHILS % (AUTO) 54 % (42-75); PLATELET COUNT 349 10^3/uL (130-400); RED CELL DISTRIBUTION WIDTH 12.3 % (10.0-14.5); WHITE BLOOD COUNT 12.1 10^3/uL (4.3-11.0)
[2020-02-12] MEDS ORDERED: NS IV 1000 ML 1,000 ML IV SCH (18:45)
[2020-02-12] MEDS ORDERED: LORazepam INJ 2 MG/ML (ATIVAN) VIAL IVP PRN ×2 (18:45)
[2020-02-12 19:16] LABS: ALANINE AMINOTRANSFERASE 21 U/L (0-55); ALBUMIN 3.8 GM/DL (3.2-4.5); ALKALINE PHOSPHATASE 81 U/L (40-136); BILIRUBIN,TOTAL 0.4 MG/DL (0.1-1.0); BUN/CREATININE RATIO 17; CALCIUM 8.9 MG/DL (8.5-10.1); CARBON DIOXIDE 22 MMOL/L (21-32); CHLORIDE 105 MMOL/L (98-107); CREATININE SERUM 0.84 MG/DL (0.60-1.30); GFR ESTIMATED > 60; POTASSIUM 3.2 MMOL/L (3.6-5.0); SODIUM 138 MMOL/L (135-145); TOTAL PROTEIN 6.8 GM/DL (6.4-8.2)
[2020-02-12 19:40] LABS: GLUCOSE 46 MG/DL (70-105)
== END 2020-02-12 18:54 | disposition left against medical advice (07) ==
LOC: EDUNIT# 18:14 → ER 18:15
DX: R20.0 Anesthesia of skin (principal); R20.2 Paresthesia of skin; R68.2 Dry mouth, unspecified; R68.83 Chills (without fever); R43.9 Unspecified disturbances of smell and taste; E10.9 Type 1 diabetes mellitus without complications; F20.9 Schizophrenia, unspecified; F31.9 Bipolar disorder, unspecified; F41.9 Anxiety disorder, unspecified; Z79.4 Long term (current) use of insulin; Z77.22 Contact with and (suspected) exposure to environmental tobacco smoke (acute) (chronic); Z82.49 Family history of ischemic heart disease and other diseases of the circulatory system
CPT/HCPCS: 36415; 80053; 85025

== ENCOUNTER 2020-02-23 21:26 | Emergency (ER) | payer OTHER ==
[~2020-02-23] VITALS: Ht 175 cm; Wt 72.5 kg
--- NOTE | 2020-02-23 21:36 | ED General ---
General Stated Complaint: ANXIETY Source of Information: Patient Exam Limitations: No Limitations History of Present Illness Date Seen by Provider: Feb 23, 2020 Time Seen by Provider: 21:34 Initial Comments To ER by EMS from home with reports of shortness of breath chest pain and anxiety that began 1.5 hours ago. He injected methamphetamine 2 hours ago.He is known diabetic, Fingerstick glucose by EMS was 167. No n/v/d. Timing/Duration: 1-2 Days Severity: Moderate Allergies and Home Medications Allergies Coded Allergies: No Known Drug Allergies (Unverified , 12/02/13) Home Medications Insulin Aspart 300 Units/3 Ml Solution, 16 UNITS SQ AC, (Reported) Insulin Degludec 100 Unit/1 Ml Insuln.pen, 40 UNIT SQ HS, (Reported) Risperidone 1 Mg Tablet, 1 MG PO BID Prescribed by: LATRICIA ARTEAGA on 01/17/20 1006 Patient Home Medication List Home Medication List Reviewed: Yes Review of Systems Review of Systems Constitutional: see HPI EENTM: see HPI Respiratory: see HPI, short of breath Cardiovascular: no symptoms reported Genitourinary: no symptoms reported Musculoskeletal: no symptoms reported Skin: no symptoms reported Psychiatric/Neurological: No Symptoms Reported Hematologic/Lymphatic: No Symptoms Reported Immunological/Allergic: no symptoms reported Past Lkcngpy-Wlkgao-Rjiorp Hx Patient Social History Drug of Choice: meth and marijuana Type Used: Cigarettes 2nd Hand Smoke Exposure: Yes Recent Hopitalizations: No Immunizations Up To Date Tetanus Booster (TDap): Unknown Seasonal Allergies Seasonal Allergies: No Past Medical History Surgeries: Yes (I&D OF ABSCESS TO CHIN/NECK AREA) Respiratory: No Currently Using CPAP: No Currently Using BIPAP: No Cardiac: No Neurological: No Genitourinary: No Gastrointestinal: Yes (HEPATITIS) Liver Disease/Jaundice, Hepatitis Musculoskeletal: No Endocrine: Yes (TYPE 1 DIABETES) Diabetes, Insulin dep HEENT: No Cancer: No Psychosocial: Yes (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) ADD/ADHD, Anxiety, Bipolar, Schizophrenia, Depression Integumentary: Yes (HX OF MRSA) Blood Disorders: No Family Medical History Alcoholism G8 BROTHER Arthritis Asthma 19 MOTHER (copd & hypotention) Cardiovascular disease 19 FATHER (cva) Completed stroke 19 FATHER Hypercholesterolemia 19 FATHER G8 SISTER Hypertension 19 FATHER Thyroid disease G8 SISTER (hyperthyroid) Physical Exam Vital Signs Vital Signs - First Documented 02/23/20 21:44 Temp 36.9 Pulse 120 Resp 18 B/P (MAP) 147/87 (107) Pulse Ox 98 Capillary Refill : Height, Weight, BMI Height: 5'8.00" Weight: 162lbs. 1.6oz. 73.283346mt; 22.00 BMI Method:Stated General Appearance: No Apparent Distress, WD/WN Eyes: Bilateral Eye Normal Inspection, Bilateral Eye PERRL, Bilateral Eye EOMI HEENT: PERRL/EOMI, TMs Normal Neck: Full Range of Motion, Normal Inspection Respiratory: No Accessory Muscle Use, No Respiratory Distress Gastrointestinal: Non Tender, Soft Extremity: Normal Capillary Refill, Normal Inspection Neurologic/Psychiatric: Alert, Other (anxious) Skin: Normal Color, Warm/Dry Progress/Results/Core Measures Suspected Sepsis SIRS Temperature: Pulse: Respiratory Rate: Blood Pressure / Mean: Results/Orders My Orders Orders - MOE SOLITARIO APRN Lorazepam Injection (Ativan Injection) (02/23/20 21:45) Vital Signs/I&O 02/23/20 21:44 Temp 36.9 Pulse 120 Resp 18 B/P (MAP) 147/87 (107) Pulse Ox 98 Capillary Refill : Departure Communication (Admissions) 4572-patient now appears much calm her and states that he feels "a lot better". He received 2 mg of IV lorazepam. Impression Primary Impression: Panic disorder Additional Impression: Methamphetamine abuse Disposition: 01 HOME, SELF-CARE Condition: Stable Departure-Patient Inst. Decision time for Depature: 21:35 Referrals: [facility] (PCP/Family) Primary Care Physician LATRICIA ARTEAGA MD Patient Instructions: Methamphetamine Scripts Hydroxyzine HCl (Hydroxyzine HCl) 50 Mg Tablet 50 MG PO Q6H PRN for NAUSEA/VOMITING, #14 TAB Prov: MOE SOLITARIO APRN 02/23/20 MOE SOLITARIO APRN Feb 23, 2020 21:36
[2020-02-23] MEDS ORDERED: LORazepam INJ 2 MG/ML (ATIVAN) VIAL IVP PRN (21:45)
[2020-02-23] MEDS ORDERED: HYDR50TA76 PO (22:21)
[2020-02-23 22:37] VITALS: BP 147/87
[2020-02-23] MEDS ORDERED: LORazepam INJ 2 MG/ML (ATIVAN) VIAL IVP ONE (22:45)
== END 2020-02-23 22:38 | disposition home or self-care (01) ==
LOC: EDUNIT# 21:26 → ER 21:27
DX: F41.0 Panic disorder [episodic paroxysmal anxiety] (principal); F15.10 Other stimulant abuse, uncomplicated; E10.9 Type 1 diabetes mellitus without complications; Z79.4 Long term (current) use of insulin; F90.9 Attention-deficit hyperactivity disorder, unspecified type; F31.9 Bipolar disorder, unspecified; F20.9 Schizophrenia, unspecified; Z86.14 Personal history of Methicillin resistant Staphylococcus aureus infection; Z79.899 Other long term (current) drug therapy
CPT/HCPCS: 99284

== ENCOUNTER 2020-04-04 03:03 | Emergency (ER) | payer OTHER ==
[~2020-04-04] VITALS: Ht 175.3 cm; Wt 61.2 kg
[~2020-04-04 03:03] MED LIST changes: +HYDR50TA76 PO
--- OUTSIDE RECORDS SUMMARY | 2020-04-04 03:10 | XMS REPORT ---
Author Author Darien VILLALOBOS Organization [facility] Address [address] [place] [address] Care Team Providers Care Cash Processor Name Role Phone CHRISTOPHER VILLALOBOS Unavailable PROBLEMS Type Condition ICD9-CM Code TGI28-HW Code Onset Dates Condition S tatus SNOMED Code Problem Schizoaffective disorder, depressive type F25.1 Active 03862975 Problem Other chronic pain G89.29 Active 8 0483307 Problem Type 1 diabetes mellitus without complication E10. 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 Active 349649843 Problem Mixed hyperlipidemia E78.2 Active 446215888 Problem Anxiety disorder, unspecified F41.9 Active 875208884 Problem Schizoaffective disorder, bipolar type F25.0 Active 16507633 Problem Panic disorder F41.0 Active 25120 1005 ALLERGIES No Information ENCOUNTERS Encounter Location Date Diagnosis [facility] [address] [facility] [id number] [address] [place] [id number] Apr, [facility] [address] [facility] [id number] [address] [place] [phone] Feb, [facility] [address] [facility] [id number] [address] [place] [id number] Feb, [facility] [address] [facility] [id number] [address] [place] [address] Feb, [facility] [address] [facility] [id number] [address] [place] [phone] Feb, Type 1 diabetes mellitus wit hout complication E10.9 [facility] [address] [facility] [id number] [address] [place] [address] Feb, Methamphetamine use disorder , severe, dependence F15.20 ; 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 and Stimulant- induced mood disorder with mixed depressive and manic symptoms F15.94 [place] [address] [address] Feb, Panic disorder F41.0 and Andre izoaffective disorder, bipolar type F25.0 [place] [address] [address] Feb, Counseled by nurse Z71.9 and Light-headed feeling R42 [address] [address] Feb, [facility] [address] [address] Feb, Anxiety disorder, unspecifie d F41.9 [place] [address] [address] Jan, Type 1 diabetes mellitus wit hout complication E10.9 ; Schizoaffective disorder, depressive type F25.1 and Mixed hyperlipidemia E78.2 [place] [address] [address] Jan, [facility] [place] [address] [address] Jan, Hordeolum externum of left u pper eyelid H00.014 [place] [address] [place] [address] Jan, Anxiety disorder, unspecifie d F41.9 [facility] [address] [address] Jan, 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 and Worried well Z71.1 [place] [address] [address] [place] [id number] [address] [place] [address] Oct, [place] [address] [place] [address] Jun, [facility] [address] [id number] [address] [place] [phone] Jun, [facility] [address] [facility] [id number] [address] [place] [phone] Jun, [facility] [address] [facility] [id number] [address] [place] [id number] May, Type 1 diabetes mellitus wit hout complication E10.9 [facility] [address] [facility] [id number] [address] [place] [phone] May, Type 1 diabetes mellitus wit hout complication E10.9 ; Encounter for immunization Z23 and Mood disorder F39 [facility] [address] [facility] [id number] [address] [place] [phone] December, [facility] [address] [place] [id number] [address] [place] [id number] Nov, [facility] [address] [facility] [id number] [address] [place] [phone] Nov, Uncontrolled type 1 diabetes mellitus without complication E10.9 [place] [address] [address] [place] [id number] [address] [place] [address] Nov, Impingement syndrome, should er, right M75.41 and Adhesive capsulitis of right shoulder M75.01 [facility] [address] [place] [id number] [address] [place] [id number] Nov, Uncontrolled type 1 diabetes mellitus without complication E10.9 [facility] [address] [facility] [id number] [address] [place] [phone] Oct, Uncontrolled type 1 diabetes mellitus without complication E10.9 ; Other chronic pain G89.29 ; Pain in right shoulder M25.511 and Schizoaffective disorder, depressive type F25.1 [facility] [address] [facility] [id number] [address] [place] [address] May, Mood disorder F39 and Contro lled diabetes mellitus type 1 without complications E10.9 [facility] [address] [id number] [address] [place] [phone] May, [facility] [address] [id number] [address] [place] [phone] May, [facility] [address] [facility] [id number] [address] [place] [id number] Apr, Mood disorder F39 ; 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 and Type 1 diabetes mellitus with hyperglycemia E10.65 [facility] [address] [id number] [address] [place] [phone] Apr, Mood disorder F39 [facility] [address] [id number] [address] [place] [phone] Mar, [facility] [address] [facility] [id number] [address] [place] [phone] Feb, [facility] [address] [facility] [id number] [address] [place] [phone] Jan, [facility] [address] [id number] [address] [place] [phone] Jan, [facility] [address] [facility] [id number] [address] [place] [phone] Jan, [facility] [address] [facility] [id number] [address] [place] [phone] December, [facility] [address] [facility] [id number] [address] [place] [address] December, 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 and Controlled type 1 diabetes mellitus with diabetic neuropathy, with long-term current use of insulin E10.40 [facility] [address] [facility] [id number] [address] [place] [phone] December, Schizo-affective schizophren ia F25.0 [facility] [address] [facility] [id number] [address] [place] [phone] Nov, [facility] [address] [facility] [id number] [address] [place] [phone] Nov, Anxiety disorder, unspecifie d F41.9 and Schizo-affective schizophrenia F25.0 [facility] [address] [facility] [id number] [address] [place] [phone] Nov, Schizo-affective schizophren ia F25.0 [facility] [address] [facility] [id number] [address] [place] [phone] Oct, [facility] [address] [id number] [address] [place] [id number] Sep, [facility] [address] [facility] [id number] [address] [place] [id number] Sep, [facility] [address] [facility] [id number] [address] [place] [phone] Sep, [facility] [address] [facility] [id number] [address] [place] [phone] Aug, [facility] [address] [facility] [id number] [address] [place] [phone] Aug, [facility] [address] [facility] [id number] [address] [place] [phone] Jul, [facility] [address] [facility] [id number] [address] [place] [id number] Jul, Diabetes type 1, controlled E10.9 [facility] [address] [facility] [id number] [address] [place] [address] Jun, Diabetes mellitus without me ntion of complication, type II or unspecified type, uncontrolled 250.02 [facility] [address] [facility] [id number] [address] [place] [phone] 09 Jun, 2015 Diabetes type 1, controlled E10.9 [facility] [address] [facility] [id number] [address] [place] [address] May, Diabetes mellitus without me ntion of complication, type II or unspecified type, uncontrolled 250.02 [place] [address] [address] May, Anxiety 300.00 [place] [address] [address] May, Diabetes type 1, controlled E10.9 ; Schizo-affective schizophrenia F25.0 ; Mood disorder F39 and Bipolar 1 disorder F31.9 [place] [address] [address] May, [place] [address] [address] May, Anxiety F41.9 and Depression F32.9 [place] [address] [address] [place] [id number] Apr, Diabetes mellitus without me ntion of complication, type II or unspecified type, uncontrolled 250.02 [place] [address] [address] Apr, Anxiety 300.00 and Diabetes mellitus without mention of complication, type II or unspecified type, uncontrolled 250.02 [place] [address] [address] Apr, [place] [address] [address] Apr, Anxiety 300.00 and Depressio n 311 [place] [address] [address] Apr, Major depression, recurrent 296.30 ; Anxiety, generalized 300.02 and No condition on [place] V71.09 [place] [address] [address] Apr, [place] [address] [address] Mar, Diabetes mellitus without me ntion of complication, type II or unspecified type, uncontrolled 250.02 and Anxiety 300.00 [facility] [address] [id number] [address] [place] [phone] Mar, [facility] [address] [id number] [address] [place] [phone] Feb, [facility] [address] [id number] [address] [place] [phone] Feb, [facility] [address] [id number] [address] [place] [phone] Feb, [facility] [address] [id number] [address] [place] [phone] Jan, [facility] [address] [id number] [address] [place] [phone] Jan, [facility] [address] [id number] [address] [place] [phone] Jan, [facility] [address] [id number] [address] [place] [phone] Jan, [facility] [address] [id number] [address] [place] [phone] December, [facility] [address] [id number] [address] [place] [id number] December, Dental examination V72.2 [facility] [address] [id number] [address] [place] [address] December, Tooth pain 525.9 [facility] [address] [id number] [address] [place] [phone] December, [facility] [address] [id number] [address] [place] [phone] Nov, [facility] [address] [id number] [address] [place] [phone] Nov, [facility] [address] [id number] [address] [place] [phone] Oct, [facility] [place] [facility] [address] [id number] [address] [place] [address], [place] [address] Oct, [facility] [address] [id number] [address] [place] [address], [place] [address] Sep, [facility] [place] [facility] [address] [id number] [address] [place] [address], [place] [address] Sep, [facility] [place] [facility] [address] [id number] [address] [place] [address], [place] [address] Sep, [facility] [place] [facility] [address] [id number] [address] [place] [address], [place] [address] Sep, [facility] [address] [id number] [address] [place] [address], [place] [address] Aug, [facility] [address] [id number] [address] [place] [address], [place] [address] Aug, [facility] [address] [id number] [address] [place] [address], [place] [address] Aug, [facility] [address] [id number] [address] [place] [address], [place] [address] Aug, [facility] [address] [id number] [address] [place] [address], [place] [address] Jul, [facility] [address] [id number] [address] [place] [address], [place] [address] Jul, [facility] [place] [facility] [address] [id number] [address] [place] [address], [place] [address] Jun, [facility] [place] [facility] [address] [id number] [address] [place] [address], [place] [address] Jun, [facility] [place] [facility] [address] [id number] [address] [place] [address], [place] [address] May, [facility] [place] [facility] [address] [id number] [address] [place] [address], [place] [address] May, [facility] [place] [facility] [address] [id number] [address] [place] [address], [place] [address] May, [facility] [place] [facility] [address] [id number] [address] [place] [address], [place] [address] May, [facility] [place] [facility] [address] [id number] [address] [place] [address], [place] [address] May, [facility] [place] [facility] [address] [id number] [address] [place] [address], [place] [address] May, [facility] [place] [facility] [address] [id number] [address] [place] [address], [place] [address] Apr, [facility] [place] [facility] [address] [id number] [address] [place] [address], [place] [address] Apr, [facility] [place] [facility] [address] [id number] [address] [place] [address], [place] [address] Apr, [facility] [place] [facility] [address] [id number] [address] [place] [address], [place] [address] Apr, [facility] [place] [facility] [address] [id number] [address] [place] [address], [place] [address] Apr, [facility] [place] [facility] [address] [id number] [address] [place] [address], [place] [address] Apr, [facility] [place] [facility] [address] [id number] [address] [place] [address], [place] [address] Mar, [facility] [place] [facility] [address] [id number] [address] [place] [address], [place] [address] Mar, [facility] [place] [facility] [address] [id number] [address] [place] [address], [place] [address] Mar, [facility] [place] [facility] [address] [id number] [address] [place] [address], [place] [address] Mar, [facility] [place] [facility] [address] [id number] [address] [place] [address], [place] [address] Feb, [facility] [place] [facility] [address] [id number] [address] [place] [address], [place] [address] Feb, [facility] [place] [facility] [address] [id number] [facility] [place] [address] 14 Feb, 2014 [facility] [address] [id number] [address] [place] [address], [place] [address] 14 Feb, 2014 [facility] [address] [id number] [facility] [place] [address] Jan, [facility] [address] [id number] [address] [place] [address], [place] [address] Jan, [facility] [address] [id number] [address] [place] [address], [place] [address] Jan, [facility] [address] [id number] [address] [place] [address], [place] [address] Jan, [facility] [address] [id number] [address] [place] [address], [place] [address] Jan, [facility] [address] [id number] [address] [place] [address], [place] [address] Jan, [facility] [address] [id number] [address] [place] [address], [place] [address] Jan, [facility] [address] [id number] [address] [place] [address], [place] [address] Jan, [facility] [address] [id number] [address] [place] [address], [place] [address] Jan, [facility] [address] [id number] [address] [place] [address], [place] [address] Jan, [facility] [address] [id number] [address] [place] [address], [place] [address] December, [facility] [address] [id number] [address] [place] [address], [place] [address] December, [facility] [address] [id number] [address] [place] [address], [place] [address] December, [facility] [address] [id number] [address] [place] [address], [place] [address] December, [facility] [address] [id number] [address] [place] [address], [place] [address] December, [facility] [address] [id number] [address] [place] [address], [place] [address] Nov, [facility] [address] [id number] [address] [place] [address], [place] [address] Nov, [facility] [address] [id number] [address] [place] [address], [place] [address] Nov, [facility] [address] [id number] [address] [place] [address], [place] [address] Oct, [facility] [address] [id number] [address] [place] [address], [place] [address] Oct, [facility] [address] [id number] [address] [place] [address], [place] [address] Oct, [facility] [address] [id number] [address] [place] [address], [place] [address] Oct, [facility] [address] [id number] [address] [place] [address], [place] [address] Oct, [facility] [address] [id number] [address] [place] [address], [place] [address] Oct, [facility] [address] [id number] [address] [place] [address], [place] [address] Oct, [facility] [place] [facility] [address] [id number] [address] [place] [address], [place] [address] Oct, [facility] [address] [id number] [address] [place] [address], [place] [address] Oct, [facility] [place] [facility] [address] [id number] [address] [place] [address], [place] [address] Sep, [facility] [address] [id number] [address] [place] [address], [place] [address] Sep, [facility] [address] [id number] [address] [place] [address] Aug, [facility] [address] [id number] [address] [place] [address], [place] [address] Aug, [facility] [address] [id number] [address] [place] [address] Aug, [facility] [address] [id number] [address] [place] [address], [place] [address] Aug, [facility] [address] [id number] [address] [place] [address], [place] [address] Jul, [facility] [address] [id number] [address] [place] [address], [place] [address] Jul, [facility] [address] [id number] [address] [place] [address], [place] [address] Jul, [facility] [address] [id number] [address] [place] [address] Jul, [facility] [address] [id number] [address] [place] [address], [place] [address] Jun, [facility] [address] [id number] [address] [place] [address] Jun, [facility] [address] [id number] [address] [place] [address] Jun, [facility] [address] [id number] [address] [place] [address] Jun, [facility] [address] [id number] [address] [place] [id number] May, [facility] [address] [id number] [address] [place] [id number] May, [facility] [address] [id number] [address] [place] [id number] May, [facility] [address] [id number] [address] [place] [id number] May, [facility] [address] [id number] [address] [place] [address], [place] [address] May, [facility] [address] [id number] [address] [place] [address], [place] [address] May, [facility] [address] [id number] [address] [place] [address], [place] [address] Apr, [facility] [address] [id number] [address] [place] [address], [place] [address] Mar, [facility] [address] [id number] [address] [place] [address], [place] [address] Mar, [facility] [address] [id number] [address] [place] [address], [place] [address] Mar, [facility] [address] [id number] [address] [place] [address], [place] [address] Feb, [facility] [address] [id number] [address] [place] [address], [place] [address] Feb, [facility] [address] [id number] [address] [place] [address], [place] [address] Feb, [facility] [address] [id number] [address] [place] [address], [place] [address] Jan, [facility] [address] [id number] [address] [place] [address], [place] [address] Jan, [facility] [address] [id number] [address] [place] [address], [place] [address] December, [facility] [address] [id number] [address] [place] [address], [place] [address] December, [facility] [address] [id number] [address] [place] [address], [place] [address] December, [facility] [address] [id number] [address] [place] [address], [place] [address] Nov, [facility] [address] [id number] [address] [place] [address], [place] [address] 24 Nov, 2012 [facility] [address] [id number] [address] [place] [address], [place] [address] 23 Nov, 2012 [facility] [address] [id number] [address] [place] [address], [place] [address] 2012 [facility] [address] [id number] [address] [place] [address], [place] [address] 15 Nov, 2012 [facility] [address] [id number] [address] [place] [address], [place] [address] 05 Nov, 2012 [facility] [address] [id number] [address] [place] [address], [place] [address] 25 Oct, 2012 [facility] [address] [id number] [address] [place] [address], [place] [address] 14 Oct, 2012 [facility] [address] [id number] [address] [place] [address], [place] [address] Oct, [facility] [address] [id number] [address] [place] [address], [place] [address] 06 Oct, 2012 [facility] [address] [id number] [address] [place] [address], [place] [address] 28 Sep, 2012 [facility] [address] [id number] [address] [place] [address], [place] [address] Sep, [facility] [address] [id number] [address] [place] [address], [place] [address] 18 Sep, 2012 [facility] [address] [id number] [address] [place] [address], [place] [id number] Sep, [facility] [address] [id number] [address] [place] [address], [place] [id number] Sep, [facility] [address] [id number] [address] [place] [address], [place] [id number] Aug, [facility] [address] [id number] [address] [place] [address], [place] [id number] Aug, [facility] [address] [id number] [address] [place] [phone] Aug, [facility] [address] [id number] [address] [place] [id number] Aug, [facility] [address] [id number] [address] [place] [id number] Aug, [facility] [address] [facility] [id number] [address] [place] [id number] Aug, [facility] [address] [id number] [address] [place] [phone] May, [facility] [address] [facility] [id number] [address] [place] [phone] May, IMMUNIZATIONS No Known Immunizations SOCIAL HISTORY Never Assessed REASON FOR VISIT PLAN OF CARE VITAL SIGNS MEDICATIONS Unknown Medications RESULTS No Results PROCEDURES No Known procedures INSTRUCTIONS MEDICATIONS ADMINISTERED No Known Medications MEDICAL (GENERAL) HISTORY Type Description Date Medical History type I diabetes Medical History hx of MRSA infections Medical History depression Medical History anxiety Medical History Meth Use IV 01/2020 per Hospital Records Surgical History I & D-MRSA Hospitalization History MRSA 2004 Hospitalization History Hepatitis A/kidney and liver failure Hospital[facility] History hallucinations [facility]
--- OUTSIDE RECORDS SUMMARY | 2020-04-04 03:10 | XMS REPORT ---
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 Active 859060414 Problem Mixed hyperlipidemia E78.2 Active 845981580 Problem Anxiety disorder, unspecified F41.9 Active 346716511 Problem Schizoaffective disorder, bipolar type F25.0 Active 82331985 Problem Panic disorder F41.0 Active 14629 1005 ALLERGIES No Information ENCOUNTERS Encounter Location Date Diagnosis [facility] [address] [id number] [address] [place] [id number] Apr, [facility] [address] [id number] [address] [place] [id number] Feb, [facility] [address] [id number] [address] [place] [id number] Feb, [facility] [address] [id number] [address] [place] [address] Feb, [facility] [address] [id number] [address] [place] [address] Feb, Type 1 diabetes mellitus wit hout complication E10.9 [facility] [address] [id number] [address] [place] [address] Feb, Methamphetamine use disorder , severe, dependence F15.20 ; 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 and Stimulant- induced mood disorder with mixed depressive and manic symptoms F15.94 [facility] [address] [id number] [address] [place] [address] Feb, Panic disorder F41.0 and Andre izoaffective disorder, bipolar type F25.0 [place] [address] [place] [id number] [address] [place] [phone] Feb, Counseled by nurse Z71.9 and Light-headed feeling R42 [facility] [address] [id number] [address] [place] [phone] Feb, [facility] [address] [place] [id number] [place] [address] Feb, Anxiety disorder, unspecifie d F41.9 [place] [address] [place] [id number] [place] [address] Jan, Type 1 diabetes mellitus wit hout complication E10.9 ; Schizoaffective disorder, depressive type F25.1 and Mixed hyperlipidemia E78.2 [place] [address] [place] [id number] [address] [place] [address] Jan, [facility] [place] [id number] [address] [place] [address] Jan, Hordeolum externum of left u pper eyelid H00.014 [place] [address] [place] [id number] [address] [place] [phone] Jan, Anxiety disorder, unspecifie d F41.9 [facility] [address] [id number] [address] [place] [address] Jan, 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 and Worried well Z71.1 [place] [address] [id number] [address] [place] [address] Oct, [place] [address] [id number] [address] [place] [address] Jun, [place] [id number] [id number] [address] [place] [address] Jun, [facility] [address] [id number] [address] [place] [address] Jun, [facility] [address] [id number] [address] [place] [address] May, Type 1 diabetes mellitus wit hout complication E10.9 [place] [address] [id number] [address] [place] [address] May, Type 1 diabetes mellitus wit hout complication E10.9 ; Encounter for immunization Z23 and Mood disorder F39 [facility] [address] [id number] [address] [place] [address] December, [place] [address] [place] [id number] [address] [place] [address] Nov, [place] [address] [id number] [address] [place] [address] Nov, Uncontrolled type 1 diabetes mellitus without complication E10.9 [place] [address] [id number] [address] [place] [address] Nov, Impingement syndrome, should er, right M75.41 and Adhesive capsulitis of right shoulder M75.01 [place] [address] [id number] [address] [place] [address] Nov, Uncontrolled type 1 diabetes mellitus without complication E10.9 [facility] [address] [id number] [address] [place] [address] Oct, Uncontrolled type 1 diabetes mellitus without complication E10.9 ; Other chronic pain G89.29 ; Pain in right shoulder M25.511 and Schizoaffective disorder, depressive type F25.1 [facility] [address] [id number] [address] [place] [address] May, Mood disorder F39 and Contro lled diabetes mellitus type 1 without complications E10.9 [place] [id number] [facility] [id number] [address] [place] [address] May, [facility] [address] [id number] [address] [place] [id number] May, [facility] [address] [id number] [address] [place] [address] Apr, Mood disorder F39 ; 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 and Type 1 diabetes mellitus with hyperglycemia E10.65 [facility] [address] [id number] [address] [place] [address] Apr, Mood disorder F39 [facility] [address] [id number] [address] [place] [address] Mar, [facility] [address] [id number] [address] [place] [address] Feb, [facility] [address] [id number] [address] [place] [id number] Jan, [facility] [address] [id number] [address] [place] [phone] Jan, [facility] [address] [id number] [address] [place] [address] Jan, [facility] [address] [id number] [address] [place] [address] December, [facility] [address] [id number] [address] [place] [address] December, 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 and Controlled type 1 diabetes mellitus with diabetic neuropathy, with long-term current use of insulin E10.40 [facility] [address] [id number] [address] [place] [address] December, Schizo-affective schizophren ia F25.0 [facility] [address] [id number] [address] [place] [address] Nov, [facility] [address] [id number] [address] [place] [address] Nov, Anxiety disorder, unspecifie d F41.9 and Schizo-affective schizophrenia F25.0 [facility] [address] [id number] [address] [place] [phone] Nov, Schizo-affective schizophren ia F25.0 [facility] [address] [id number] [address] [place] [phone] Oct, [facility] [address] [id number] [address] [place] [address] Sep, [facility] [address] [id number] [address] [place] [address] Sep, [facility] [address] [id number] [address] [place] [id number] Sep, [facility] [address] [id number] [address] [place] [phone] Aug, [facility] [address] [id number] [address] [place] [address] Aug, [facility] [address] [id number] [address] [place] [address] Jul, [facility] [address] [place] [id number] [address] [place] [address] Jul, Diabetes type 1, controlled E10.9 [facility] [address] [place] [id number] [address] [place] [address] Jun, Diabetes mellitus without me ntion of complication, type II or unspecified type, uncontrolled 250.02 [facility] [address] [id number] [address] [place] [address] 09 Jun, 2015 Diabetes type 1, controlled E10.9 [facility] [address] [id number] [address] [place] [address] May, Diabetes mellitus without me ntion of complication, type II or unspecified type, uncontrolled 250.02 [facility] [address] [id number] [address] [place] [address] May, Anxiety 300.00 [place] [address] [id number] May, Diabetes type 1, controlled E10.9 ; Schizo-affective schizophrenia F25.0 ; Mood disorder F39 and Bipolar 1 disorder F31.9 [place] [address] [address] May, [place] [address] [address] May, Anxiety F41.9 and Depression F32.9 [place] [address] [place] [id number] Apr, Diabetes mellitus without me ntion of complication, type II or unspecified type, uncontrolled 250.02 [place] [address] [address] Apr, Anxiety 300.00 and Diabetes mellitus without mention of complication, type II or unspecified type, uncontrolled 250.02 [place] [address] [address] Apr, [place] [address] [address] Apr, Anxiety 300.00 and Depressio n 311 [place] [address] [address] Apr, Major depression, recurrent 296.30 ; Anxiety, generalized 300.02 and No condition on [place] II V71.09 [place] [address] [address] Apr, [place] [address] [place] [id number] Mar, Diabetes mellitus without me ntion of complication, type II or unspecified type, uncontrolled 250.02 and Anxiety 300.00 [place] [address] [address] Mar, [facility] [address] [id number] [address] [place] [id number] Feb, [facility] [address] [id number] [address] [place] [address] Feb, [facility] [address] [id number] [address] [place] [address] Feb, [facility] [address] [id number] [address] [place] [address] Jan, [facility] [address] [id number] [address] [place] [address] Jan, [facility] [address] [id number] [address] [place] [address] Jan, [facility] [address] [id number] [address] [place] [id number] Jan, [facility] [address] [id number] [address] [place] [address] December, [facility] [address] [id number] [address] [place] [id number] December, Dental examination V72.2 [facility] [address] [id number] [address] [place] [address] December, Tooth pain 525.9 [facility] [address] [id number] [address] [place] [id number] December, [facility] [address] [id number] [address] [place] [id number] Nov, [facility] [address] [id number] [address] [place] [id number] Nov, [facility] [address] [id number] [address] [place] [address] Oct, [facility] [address] [id number] [address] [place] [id number] Oct, [facility] [address] [id number] [address] [place] [address], [place] [address] Sep, [facility] [address] [id number] [address] [place] [address], [place] [address] Sep, [facility] [address] [id number] [address] [place] [address], [place] [address] Sep, [facility] [address] [id number] [address] [place] [address], [place] [address] Sep, [facility] [address] [id number] [address] [place] [address], [place] [address] Aug, [facility] [address] [id number] [address] [place] [address], [place] [address] Aug, [facility] [address] [id number] [address] [place] [address], [place] [address] Aug, [facility] [address] [id number] [address] [place] [address], [place] [address] Aug, [facility] [address] [id number] [address] [place] [address], [place] [address] Jul, [facility] [address] [id number] [address] [place] [address], [place] [address] Jul, [facility] [address] [id number] [address] [place] [address], [place] [address] Jun, [facility] [address] [id number] [address] [place] [address], [place] [address] Jun, [facility] [address] [id number] [address] [place] [address], [place] [address] May, [facility] [address] [id number] [address] [place] [address], [place] [address] May, [facility] [address] [id number] [address] [place] [address], [place] [address] May, [facility] [address] [id number] [address] [place] [address], [place] [address] May, [facility] [address] [id number] [address] [place] [address], [place] [address] May, [facility] [address] [id number] [address] [place] [address], [place] [address] May, [facility] [address] [id number] [address] [place] [address], [place] [address] Apr, [facility] [address] [id number] [address] [place] [address], [place] [address] Apr, [facility] [address] [id number] [address] [place] [address], [place] [address] Apr, [facility] [address] [id number] [address] [place] [address], [place] [address] Apr, [facility] [address] [id number] [address] [place] [address], [place] [address] Apr, [facility] [address] [id number] [address] [place] [address], [place] [address] Apr, [facility] [address] [id number] [address] [place] [address], [place] [address] Mar, [facility] [address] [id number] [address] [place] [address], [place] [address] Mar, [facility] [address] [id number] [address] [place] [address], [place] [address] Mar, [facility] [address] [id number] [address] [place] [address], [place] [address] Mar, [facility] [address] [id number] [address] [place] [address], [place] [address] Feb, [facility] [address] [id number] [address] [place] [address], [place] [address] Feb, [facility] [address] [id number] [address] [place] [address], [place] [address] Feb, [facility] [address] [id number] [facility] [place] [address] Feb, [facility] [address] [id number] [facility] [place] [address] Jan, [facility] [address] [id number] [address] [place] [address], [place] [address] Jan, [facility] [address] [id number] [address] [place] [address], [place] [address] Jan, [facility] [address] [id number] [address] [place] [address], [place] [address] Jan, [facility] [address] [id number] [address] [place] [address], [place] [address] Jan, [facility] [address] [id number] [address] [place] [address], [place] [address] Jan, [facility] [address] [id number] [address] [place] [address], [place] [address] Jan, [facility] [address] [id number] [address] [place] [address], [place] [address] Jan, [facility] [address] [id number] [address] [place] [address], [place] [address] Jan, [facility] [address] [id number] [address] [place] [address], [place] [address] Jan, [facility] [address] [id number] [address] [place] [address], [place] [address] December, [facility] [address] [id number] [address] [place] [address], [place] [address] December, [facility] [address] [id number] [address] [place] [address], [place] [address] December, [facility] [address] [id number] [address] [place] [address], [place] [address] December, [facility] [address] [id number] [address] [place] [address], [place] [address] December, [facility] [address] [id number] [facility] [place] [address] Nov, [facility] [address] [id number] [address] [place] [address], [place] [address] Nov, [facility] [address] [id number] [address] [place] [address], [place] [address] Nov, [facility] [address] [id number] [address] [place] [address], [place] [address] Oct, [facility] [address] [id number] [address] [place] [address], [place] [address] Oct, [facility] [address] [id number] [address] [place] [address], [place] [address] Oct, [facility] [address] [id number] [address] [place] [address], [place] [address] Oct, [facility] [address] [id number] [address] [place] [address], [place] [address] Oct, [facility] [address] [id number] [address] [place] [address], [place] [address] Oct, [facility] [address] [id number] [address] [place] [address], [place] [address] Oct, [facility] [address] [id number] [address] [place] [address], [place] [address] Oct, [facility] [address] [id number] [address] [place] [address], [place] [address] Oct, [facility] [address] [id number] [address] [place] [address], [place] [address] Sep, [facility] [address] [id number] [address] [place] [address], [place] [address] Sep, [facility] [address] [id number] [address] [place] [address], [place] [address] Aug, [facility] [address] [id number] [address] [place] [address], [place] [address] Aug, [facility] [address] [id number] [address] [place] [address], [place] [address] Aug, [facility] [address] [id number] [address] [place] [address], [place] [address] Aug, [facility] [address] [id number] [address] [place] [address], [place] [address] Jul, [facility] [address] [id number] [address] [place] [address], [place] [address] Jul, [facility] [address] [id number] [address] [place] [address], [place] [address] Jul, [facility] [address] [id number] [address] [place] [address], [place] [address] Jul, [facility] [address] [id number] [address] [place] [address], [place] [address] Jun, [facility] [address] [id number] [address] [place] [address], [place] [address] Jun, [facility] [address] [id number] [address] [place] [address], [place] [address] Jun, [facility] [address] [id number] [address] [place] [address], [place] [address] Jun, [facility] [address] [id number] [address] [place] [address], [place] [address] May, [facility] [address] [id number] [address] [place] [address], [place] [address] May, [facility] [address] [id number] [address] [place] [address], [place] [address] May, [facility] [address] [id number] [address] [place] [address], [place] [id number] May, [facility] [address] [id number] [address] [place] [address], [place] [id number] May, [facility] [address] [id number] [address] [place] [address], [place] [id number] May, [facility] [address] [id number] [address] [place] [address], [place] [id number] Apr, [facility] [address] [id number] [address] [place] [address], [place] [address] Mar, [facility] [address] [id number] [address] [place] [address], [place] [id number] Mar, [facility] [address] [id number] [address] [place] [address], [place] [id number] Mar, [facility] [address] [id number] [address] [place] [address], [place] [id number] Feb, [facility] [address] [id number] [address] [place] [address], [place] [id number] Feb, [facility] [address] [id number] [address] [place] [address], [place] [id number] Feb, [facility] [address] [id number] [address] [place] [address], [place] [id number] Jan, [facility] [address] [id number] [address] [place] [address], [place] [id number] Jan, [facility] [address] [id number] [address] [place] [address], [place] [id number] December, [facility] [address] [id number] [address] [place] [address], [place] [id number] December, [facility] [address] [id number] [address] [place] [address], [place] [id number] December, [facility] [address] [id number] [address] [place] [address], [place] [id number] Nov, [facility] [address] [id number] [address] [place] [address], [place] [id number] Nov, [facility] [address] [id number] [address] [place] [address], [place] [id number] 23 Nov, 2012 [facility] [address] [id number] [address] [place] [address], [place] [id number] 2012 [facility] [address] [id number] [address] [place] [address], [place] [id number] 15 Nov, 2012 [facility] [address] [id number] [address] [place] [address], [place] [id number] 05 Nov, 2012 [facility] [address] [id number] [address] [place] [address], [place] [id number] 25 Oct, 2012 [facility] [address] [id number] [address] [place] [address], [place] [id number] 14 Oct, 2012 [facility] [address] [id number] [address] [place] [address], [place] [id number] 11 Oct, 2012 [facility] [address] [id number] [address] [place] [address], [place] [id number] 06 Oct, 2012 [facility] [address] [id number] [address] [place] [address], [place] [id number] 28 Sep, 2012 [facility] [address] [id number] [address] [place] [address], [place] [id number] Sep, [facility] [address] [id number] [address] [place] [address], [place] [id number] 18 Sep, 2012 [facility] [address] [id number] [address] [place] [address], [place] [id number] Sep, [facility] [address] [id number] [address] [place] [address], [place] [id number] Sep, [facility] [address] [id number] [address] [place] [address], [place] [id number] Aug, [facility] [address] [id number] [address] [place] [address], [place] [id number] Aug, [facility] [facility] [address] [id number] [address] [place] [address], [place] [id number] Aug, [facility] [address] [facility] [id number] [address] [place] [id number] Aug, [facility] [address] [facility] [id number] [address] [place] [id number] Aug, [facility] [address] [facility] [id number] [address] [place] [id number] Aug, [facility] [address] [facility] [id number] [address] [place] [id number] May, [facility] [address] [facility] [id number] [address] [place] [phone] May, IMMUNIZATIONS No Known Immunizations SOCIAL HISTORY Never Assessed REASON FOR VISIT PLAN OF CARE VITAL SIGNS Height 69 in 2012-12-05 Weight 152 lbs 2012-12-05 Temperature 97.2 degrees Fahrenheit 2012-12-05 Heart Rate 100 bpm 2012-12-05 Respiratory Rate 18 bpm 2012-12-05 Blood pressure systolic 110 mmHg 2012-12-05 Blood pressure diastolic 80 mmHg 2012-12-05 MEDICATIONS Unknown Medications RESULTS No Results PROCEDURES [...] liver failure Hospitalization History hallucinations Hospitalization History [facility]- Hep A 2019
--- OUTSIDE RECORDS SUMMARY | 2020-04-04 03:10 | XMS REPORT ---
Author Author Darien VILLALOBOS Organization [facility] Address [address] [place] [address] Care Team Providers Care Veterans Contact Representative Name Role Phone CHRISTOPHER VILLALOBOS Unavailable PROBLEMS Type Condition ICD9-CM Code [id number] Code Onset Dates Condition S tatus SNOMED Code Problem Schizoaffective disorder, depressive type F25.1 Active 47415069 Problem Other chronic pain G89.29 Active 8 5048283 Problem Type 1 diabetes mellitus without complication E10. 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 Active 644669990 Problem Mixed hyperlipidemia E78.2 Active 023014455 Problem Anxiety disorder, unspecified F41.9 Active 014028067 Problem Schizoaffective disorder, bipolar type F25.0 Active 50316136 Problem Panic disorder F41.0 Active 40288 1005 ALLERGIES No Information ENCOUNTERS Encounter Location Date Diagnosis [facility] [address] [facility] [id number] [address] [place] [id number] Apr, [facility] [address] [facility] [id number] [address] [place] [id number] Mar, [facility] [address] [facility] [id number] [address] [place] [id number] Feb, [facility] [address] [id number] [address] [place] [phone] Feb, [facility] [address] [facility] [id number] [address] [place] [id number] Feb, [facility] [address] [facility] [id number] [address] [place] [id number] Feb, Type 1 diabetes mellitus wit hout complication E10.9 [place] [address] [facility] [id number] [address] [place] [id number] Feb, Methamphetamine use disorder , severe, dependence F15.20 ; 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 and Stimulant- induced mood disorder with mixed depressive and manic symptoms F15.94 [place] [address] [place] [id number] [address] [place] [id number] Feb, Panic disorder F41.0 and Andre izoaffective disorder, bipolar type F25.0 [place] [address] [place] [id number] [place] [id number] Feb, Counseled by nurse Z71.9 and Light-headed feeling R42 [place] [address] [place] [id number] [place] [phone] Feb, [facility] [place] [address] [address] Feb, Anxiety disorder, unspecifie d F41.9 [place] [id number] [place] [address] Jan, Type 1 diabetes mellitus wit hout complication E10.9 ; Schizoaffective disorder, depressive type F25.1 and Mixed hyperlipidemia E78.2 [place] [address] [address] [place] [id number] [address] [place] [id number] Jan, [facility] [place] [id number] [address] [place] [id number] Jan, Hordeolum externum of left u pper eyelid H00.014 [place] [address] [address] [place] [id number] [address] [place] [id number] Jan, Anxiety disorder, unspecifie d F41.9 [facility] N [facility] [id number] [address] [place] [phone] Jan, 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 and Worried well Z71.1 [place] [address] [address] [place] [id number] [address] [place] [phone] Oct, [facility] [address] [id number] [address] [place] [id number] Jun, [facility] [address] [facility] [id number] [address] [place] [id number] Jun, [facility] [address] [facility] [id number] [address] [place] [phone] Jun, [facility] [address] [facility] [id number] [address] [place] [id number] May, Type 1 diabetes mellitus wit hout complication E10.9 [facility] [address] [facility] [id number] [address] [place] [id number] May, Type 1 diabetes mellitus wit hout complication E10.9 ; Encounter for immunization Z23 and Mood disorder F39 [facility] [address] [facility] [id number] [address] [place] [id number] December, [facility] [address] [facility] [id number] [address] [place] [id number] Nov, [facility] [address] [place] [id number] [address] [place] [id number] Nov, Uncontrolled type 1 diabetes mellitus without complication E10.9 [facility] [address] [place] [id number] [address] [place] [id number] Nov, Impingement syndrome, should er, right M75.41 and Adhesive capsulitis of right shoulder M75.01 [facility] [address] [facility] [id number] [address] [place] [id number] Nov, Uncontrolled type 1 diabetes mellitus without complication E10.9 [facility] [address] [facility] [id number] [address] [place] [id number] Oct, Uncontrolled type 1 diabetes mellitus without complication E10.9 ; Other chronic pain G89.29 ; Pain in right shoulder M25.511 and Schizoaffective disorder, depressive type F25.1 [facility] [address] [id number] [address] [place] [phone] May, Mood disorder F39 and Contro lled diabetes mellitus type 1 without complications E10.9 [facility] [address] [id number] [address] [place] [phone] May, [facility] [address] [id number] [address] [place] [phone] May, [facility] [address] [facility] [id number] [address] [place] [phone] Apr, Mood disorder F39 ; 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 and Type 1 diabetes mellitus with hyperglycemia E10.65 [facility] [address] [id number] [address] [place] [phone] Apr, Mood disorder F39 [facility] [address] [id number] [address] [place] [id number] Mar, [facility] [address] [id number] [address] [place] [id number] Feb, [facility] [address] [id number] [address] [place] [id number] Jan, [facility] [address] [facility] [id number] [address] [place] [phone] Jan, [facility] [address] [id number] [address] [place] [id number] Jan, [facility] [address] [facility] [id number] [address] [place] [phone] December, [facility] [address] [facility] [id number] [address] [place] [id number] December, 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 and Controlled type 1 diabetes mellitus with diabetic neuropathy, with long-term current use of insulin E10.40 [facility] [address] [id number] [address] [place] [id number] December, Schizo-affective schizophren ia F25.0 [facility] [address] [facility] [id number] [address] [place] [id number] Nov, [facility] [address] [facility] [id number] [address] [place] [id number] Nov, Anxiety disorder, unspecifie d F41.9 and Schizo-affective schizophrenia F25.0 [facility] [address] [facility] [id number] [address] [place] [phone] Nov, Schizo-affective schizophren ia F25.0 [facility] [address] [facility] [id number] [address] [place] [id number] Oct, [facility] [address] [facility] [id number] [address] [place] [id number] Sep, [facility] [address] [facility] [id number] [address] [place] [id number] Sep, [facility] [address] [facility] [id number] [address] [place] [id number] Sep, [facility] [address] [facility] [id number] [address] [place] [id number] Aug, [facility] [address] [facility] [id number] [address] [place] [id number] Aug, [facility] [address] [place] [id number] [address] [place] [id number] Jul, [facility] [address] [facility] [id number] [address] [place] [id number] Jul, Diabetes type 1, controlled E10.9 [facility] [address] [facility] [id number] [address] [place] [id number] Jun, Diabetes mellitus without me ntion of complication, type II or unspecified type, uncontrolled 250.02 [facility] [address] [facility] [id number] [address] [place] [id number] 09 Jun, 2015 Diabetes type 1, controlled E10.9 [facility] [address] [address] May, Diabetes mellitus without me ntion of complication, type II or unspecified type, uncontrolled 250.02 [place] [address] [address] May, Anxiety 300.00 [place] [address] [address] May, Diabetes type 1, controlled E10.9 ; Schizo-affective schizophrenia F25.0 ; Mood disorder F39 and Bipolar 1 disorder F31.9 [place] [address] [address] May, [place] [address] [address] May, Anxiety F41.9 and Depression F32.9 [place] [address] [address] Apr, Diabetes mellitus without me ntion of complication, type II or unspecified type, uncontrolled 250.02 [place] [address] [address] Apr, Anxiety 300.00 and Diabetes mellitus without mention of complication, type II or unspecified type, uncontrolled 250.02 [place] [address] [address] Apr, [place] [address] [address] Apr, Anxiety 300.00 and Depressio n 311 [place] [address] [address] Apr, Major depression, recurrent 296.30 ; Anxiety, generalized 300.02 and No condition on [place] II V71.09 [place] [address] [address] Apr, [place] [address] [address] Mar, Diabetes mellitus without me ntion of complication, type II or unspecified type, uncontrolled 250.02 and Anxiety 300.00 [facility] [address] [id number] [address] [place] [id number] Mar, [facility] [address] [id number] [address] [place] [id number] Feb, [facility] [address] [id number] [address] [place] [id number] Feb, [facility] [address] [id number] [address] [place] [id number] Feb, [facility] [address] [id number] [address] [place] [id number] Jan, [facility] [address] [id number] [address] [place] [id number] Jan, [facility] [address] [id number] [address] [place] [id number] Jan, [facility] [address] [id number] [address] [place] [id number] Jan, [facility] [address] [facility] [id number] [address] [place] [phone] December, [facility] [address] [id number] [address] [place] [id number] December, Dental examination V72.2 [facility] [address] [id number] [address] [place] [id number] December, Tooth pain 525.9 [facility] [address] [id number] [address] [place] [id number] December, [facility] [address] [id number] [address] [place] [phone] Nov, [facility] [address] [id number] [address] [place] [id number] Nov, [facility] [address] [id number] [address] [place] [address], [place] [address] Oct, [facility] [address] [id number] [address] [place] [address], [place] [address] Oct, [facility] [address] [id number] [address] [place] [address], [place] [address] Sep, [facility] [address] [id number] [address] [place] [address], [place] [address] Sep, [facility] [address] [id number] [address] [place] [address], [place] [address] Sep, [facility] [address] [id number] [address] [place] [address], [place] [address] Sep, [facility] [address] [id number] [address] [place] [address], [place] [address] Aug, [facility] [address] [id number] [address] [place] [address], [place] [address] Aug, [facility] [address] [id number] [address] [place] [address], [place] [address] Aug, [facility] [address] [id number] [address] [place] [address], [place] [address] Aug, [facility] [address] [id number] [address] [place] [address], [place] [address] Jul, [facility] [address] [id number] [address] [place] [address], [place] [address] Jul, [facility] [address] [id number] [address] [place] [address], [place] [address] Jun, [facility] [address] [id number] [address] [place] [address], [place] [address] Jun, [facility] [address] [id number] [address] [place] [address], [place] [address] 31 May, 2014 [facility] [address] [id number] [address] [place] [address], [place] [address] May, [facility] [address] [id number] [address] [place] [address], [place] [address] May, [facility] [address] [id number] [address] [place] [address], [place] [address] May, [facility] [address] [id number] [address] [place] [address], [place] [address] May, [facility] [address] [id number] [address] [place] [address], [place] [address] May, [facility] [address] [id number] [address] [place] [address], [place] [address] Apr, [facility] [address] [id number] [address] [place] [address], [place] [address] Apr, [facility] [address] [id number] [address] [place] [address], [place] [id number] 17 Apr, 2014 [facility] [address] [id number] [address] [place] [address], [place] [address] 17 Apr, 2014 [facility] [address] [id number] [address] [place] [address], [place] [address] 08 Apr, 2014 [facility] [address] [id number] [address] [place] [address], [place] [address] 08 Apr, 2014 [facility] [address] [id number] [address] [place] [address], [place] [address] Mar, [facility] [address] [id number] [address] [place] [address], [place] [address] Mar, [facility] [address] [id number] [address] [place] [address], [place] [address] Mar, [facility] [address] [id number] [address] [place] [address], [place] [address] Mar, [facility] [address] [id number] [address] [place] [address], [place] [address] Feb, [facility] [address] [id number] [facility] [address] Feb, [facility] [address] [id number] [facility] [address] Feb, [facility] [address] [id number] [facility] [place] [address] Feb, [facility] [address] [id number] [address] [place] [address], [place] [address] Jan, [facility] [address] [id number] [address] [place] [address], [place] [address] Jan, [facility] [address] [id number] [address] [place] [address], [place] [address] Jan, [facility] [address] [id number] [address] [place] [address], [place] [address] Jan, [facility] [address] [id number] [address] [place] [address], [place] [address] Jan, [facility] [address] [id number] [address] [place] [address], [place] [address] Jan, [facility] [address] [id number] [address] [place] [address], [place] [address] Jan, [facility] [address] [id number] [address] [place] [address], [place] [id number] Jan, [facility] [address] [id number] [address] [place] [address], [place] [address] Jan, [facility] [address] [id number] [address] [place] [address], [place] [address] Jan, [facility] [address] [id number] [address] [place] [address], [place] [address] December, [facility] [address] [id number] [address] [place] [address], [place] [address] December, [facility] [address] [id number] [address] [place] [address], [place] [id number] December, [facility] [address] [id number] [address] [place] [address], [place] [address] December, [facility] [address] [id number] [address] [place] [address], [place] [address] December, [facility] [address] [id number] [address] [place] [address], [place] [address] Nov, [facility] [address] [id number] [address] [place] [address], [place] [address] Nov, [facility] [address] [id number] [address] [place] [address], [place] [address] Nov, [facility] [address] [id number] [address] [place] [address], [place] [address] Oct, [facility] [address] [id number] [address] [place] [address], [place] [address] Oct, [facility] [address] [id number] [address] [place] [address], [place] [id number] Oct, [facility] [address] [id number] [address] [place] [address], [place] [address] Oct, [facility] [address] [id number] [address] [place] [address], [place] [address] Oct, [facility] [address] [id number] [address] [place] [address], [place] [address] Oct, [facility] [address] [id number] [address] [place] [address], [place] [address] Oct, [facility] [address] [id number] [address] [place] [address], [place] [address] Oct, [facility] [address] [id number] [address] [place] [address], [place] [address] Oct, [facility] [address] [id number] [address] [place] [address], [place] [address] Sep, [facility] [address] [id number] [address] [place] [id number] Sep, [facility] [address] [id number] [address] [place] [address], [place] [address] Aug, [facility] [address] [id number] [address] [place] [id number] Aug, [facility] [address] [id number] [address] [place] [address], [place] [id number] Aug, [facility] [address] [id number] [address] [place] [id number] Aug, [facility] [address] [id number] [address] [place] [address], [place] [id number] Jul, [facility] [address] [id number] [address] [place] [id number] Jul, [facility] [address] [id number] [address] [place] [id number] Jul, [facility] [address] [id number] [address] [place] [address], [place] [id number] Jul, [facility] [address] [id number] [address] [place] [id number] Jun, [facility] [address] [id number] [address] [place] [id number] Jun, [facility] [address] [id number] [address] [place] [id number] Jun, [facility] [address] [id number] [address] [place] [id number] Jun, [facility] [address] [id number] [address] [place] [id number] May, [facility] [address] [id number] [address] [place] [id number] May, [facility] [address] [id number] [address] [place] [id number] May, [facility] [address] [id number] [address] [place] [address], [place] [id number] May, [facility] [address] [id number] [address] [place] [address], [place] [id number] May, [facility] [address] [id number] [address] [place] [address], [place] [id number] May, [facility] [address] [id number] [address] [place] [address], [place] [id number] Apr, [facility] [address] [id number] [address] [place] [address], [place] [id number] Mar, [facility] [address] [id number] [address] [place] [address], [place] [id number] Mar, [facility] [address] [id number] [address] [place] [address], [place] [id number] Mar, [facility] [address] [id number] [address] [place] [address], [place] [id number] Feb, [facility] [address] [id number] [address] [place] [address], [place] [id number] Feb, [facility] [address] [id number] [address] [place] [address], [place] [id number] Feb, [facility] [address] [id number] [address] [place] [address], [place] [id number] Jan, [facility] [address] [id number] [address] [place] [address], [place] [id number] Jan, [facility] [address] [address] [id number] [address] [place] [address], [place] [id number] December, [facility] [address] [id number] [address] [place] [address], [place] [id number] December, [facility] [address] [id number] [address] [place] [address], [place] [id number] December, [facility] [address] [id number] [address] [place] [address], [place] [id number] 29 Nov, 2012 [facility] [address] [id number] [address] [place] [address], [place] [id number] 24 Nov, 2012 [facility] [address] [id number] [address] [place] [address], [place] [id number] 23 Nov, 2012 [facility] [address] [id number] [address] [place] [address], [place] [id number] 2012 [facility] [address] [id number] [address] [place] [address], [place] [id number] 15 Nov, 2012 [facility] [address] [id number] [address] [place] [address], [place] [id number] 05 Nov, 2012 [facility] [address] [id number] [address] [place] [address], [place] [id number] 25 Oct, 2012 [facility] [address] [id number] [address] [place] [address], [place] [id number] 14 Oct, 2012 [facility] [address] [id number] [address] [place] [address], [place] [id number] 11 Oct, 2012 [facility] [address] [id number] [address] [place] [address], [place] [id number] 06 Oct, 2012 [facility] [address] [id number] [address] [place] [address], [place] [id number] 28 Sep, 2012 [facility] [address] [id number] [address] [place] [address], [place] [id number] 20 Sep, 2012 [facility] [address] [id number] [address] [place] [address], [place] [id number] 18 Sep, 2012 [facility] [address] [id number] [address] [place] [address], [place] [id number] 11 Sep, 2012 [facility] [address] [id number] [address] [place] [address], [place] [id number] Sep, [facility] [address] [id number] [address] [place] [address], [place] [id number] 30 Aug, 2012 [facility] [address] [id number] [address] [place] [id number] Aug, [facility] [address] [id number] [address] [place] [id number] Aug, [facility] [address] [id number] [address] [place] [id number] Aug, [facility] [address] [id number] [address] [place] [id number] Aug, [facility] [address] [id number] [address] [place] [id number] Aug, [facility] [address] [id number] [address] [place] [id number] May, [facility] [address] [id number] [address] [place] [id number] May, IMMUNIZATIONS No Known Immunizations SOCIAL HISTORY [...] liver failure Hospitalization History hallucinations Hospitalization History [facility]- Hep A 2019
--- OUTSIDE RECORDS SUMMARY | 2020-04-04 03:11 | XMS REPORT ---
Author Author Darien VILLALOBOS Organization [facility] Address [address] [place] [address] Care Team Providers Care Furnace Clerk Name Role Phone CHRISTOPHER VILLALOBOS Unavailable PROBLEMS Type Condition ICD9-CM Code TNB26-KJ Code Onset Dates Condition S tatus SNOMED Code Problem Schizoaffective disorder, depressive type F25.1 Active 51682467 Problem Other chronic pain G89.29 Active 8 1371992 Problem Type 1 diabetes mellitus without complication E10. 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 Active 656182013 Problem Mixed hyperlipidemia E78.2 Active 231789922 Problem Anxiety disorder, unspecified F41.9 Active 392541331 Problem Schizoaffective disorder, bipolar type F25.0 Active 58575467 Problem Panic disorder F41.0 Active 48845 1005 ALLERGIES No Information ENCOUNTERS Encounter Location Date Diagnosis [facility] [address] [facility] [id number] [address] [place] [address] Apr, [facility] [address] [facility] [id number] [address] [place] [address] Feb, [facility] [address] [facility] [id number] [address] [place] [address] Feb, [facility] [address] [facility] [id number] [address] [place] [address] Feb, [facility] [address] [facility] [id number] [address] [place] [address] Feb, Type 1 diabetes mellitus wit hout complication E10.9 [facility] [address] [facility] [id number] [address] [place] [address] Feb, Methamphetamine use disorder , severe, dependence F15.20 ; 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 and Stimulant- induced mood disorder with mixed depressive and manic symptoms F15.94 [place] [address] [address] Feb, Panic disorder F41.0 and Andre izoaffective disorder, bipolar type F25.0 [place] [address] [address] Feb, Counseled by nurse Z71.9 and Light-headed feeling R42 [address] [address] Feb, [facility] [address] [address] Feb, Anxiety disorder, unspecifie d F41.9 [place] [address] [address] Jan, Type 1 diabetes mellitus wit hout complication E10.9 ; Schizoaffective disorder, depressive type F25.1 and Mixed hyperlipidemia E78.2 [place] [address] [address] Jan, [facility] [place] [address] [address] Jan, Hordeolum externum of left u pper eyelid H00.014 [place] [address] [place] [address] Jan, Anxiety disorder, unspecifie d F41.9 [facility] [address] [address] Jan, 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 and Worried well Z71.1 [place] [address] [place] [id number] [address] [place] [address] Oct, [place] [address] [place] [address] Jun, [facility] [address] [id number] [address] [place] [address] Jun, [facility] [address] [facility] [id number] [address] [place] [address] Jun, [facility] [address] [facility] [id number] [address] [place] [address] May, Type 1 diabetes mellitus wit hout complication E10.9 [facility] [address] [facility] [id number] [address] [place] [address] May, Type 1 diabetes mellitus wit hout complication E10.9 ; Encounter for immunization Z23 and Mood disorder F39 [facility] [address] [facility] [id number] [address] [place] [address] December, [facility] [address] [place] [id number] [address] [place] [address] Nov, [facility] [address] [facility] [id number] [address] [place] [address] Nov, Uncontrolled type 1 diabetes mellitus without complication E10.9 [place] [address] [place] [id number] [address] [place] [address] Nov, Impingement syndrome, should er, right M75.41 and Adhesive capsulitis of right shoulder M75.01 [facility] [address] [place] [id number] [address] [place] [address] Nov, Uncontrolled type 1 diabetes mellitus without complication E10.9 [facility] [address] [facility] [id number] [address] [place] [address] Oct, Uncontrolled type 1 diabetes mellitus without complication E10.9 ; Other chronic pain G89.29 ; Pain in right shoulder M25.511 and Schizoaffective disorder, depressive type F25.1 [facility] [address] [facility] [id number] [address] [place] [address] May, Mood disorder F39 and Contro lled diabetes mellitus type 1 without complications E10.9 [facility] [address] [id number] [address] [place] [address] May, [facility] [address] [id number] [address] [place] [address] May, [facility] [address] [facility] [id number] [address] [place] [address] Apr, Mood disorder F39 ; 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 and Type 1 diabetes mellitus with hyperglycemia E10.65 [facility] [address] [id number] [address] [place] [address] Apr, Mood disorder F39 [facility] [address] [id number] [address] [place] [address] Mar, [facility] [address] [facility] [id number] [address] [place] [address] Feb, [facility] [address] [facility] [id number] [address] [place] [address] Jan, [facility] [address] [id number] [address] [place] [address] Jan, [facility] [address] [facility] [id number] [address] [place] [address] Jan, [facility] [address] [facility] [id number] [address] [place] [address] December, [facility] [address] [facility] [id number] [address] [place] [address] December, 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 and Controlled type 1 diabetes mellitus with diabetic neuropathy, with long-term current use of insulin E10.40 [facility] [address] [facility] [id number] [address] [place] [address] December, Schizo-affective schizophren ia F25.0 [facility] [address] [facility] [id number] [address] [place] [address] Nov, [facility] [address] [facility] [id number] [address] [place] [address] Nov, Anxiety disorder, unspecifie d F41.9 and Schizo-affective schizophrenia F25.0 [facility] [address] [facility] [id number] [address] [place] [address] Nov, Schizo-affective schizophren ia F25.0 [facility] [address] [facility] [id number] [address] [place] [address] Oct, [facility] [address] [id number] [address] [place] [address] Sep, [facility] [address] [facility] [id number] [address] [place] [address] Sep, [facility] [address] [facility] [id number] [address] [place] [address] Sep, [facility] [address] [facility] [id number] [address] [place] [address] Aug, [facility] [address] [facility] [id number] [address] [place] [address] Aug, [facility] [address] [facility] [id number] [address] [place] [address] Jul, [facility] [address] [facility] [id number] [address] [place] [address] Jul, Diabetes type 1, controlled E10.9 [facility] [address] [facility] [id number] [address] [place] [address] Jun, Diabetes mellitus without me ntion of complication, type II or unspecified type, uncontrolled 250.02 [facility] [address] [facility] [id number] [address] [place] [address] 09 Jun, 2015 Diabetes type 1, controlled E10.9 [facility] [address] [facility] [id number] [address] [place] [address] May, Diabetes mellitus without me ntion of complication, type II or unspecified type, uncontrolled 250.02 [place] [address] [address] May, Anxiety 300.00 [place] [address] [address] May, Diabetes type 1, controlled E10.9 ; Schizo-affective schizophrenia F25.0 ; Mood disorder F39 and Bipolar 1 disorder F31.9 [place] [address] [address] May, [place] [address] [address] May, Anxiety F41.9 and Depression F32.9 [place] [address] [place] [id number] Apr, Diabetes mellitus without me ntion of complication, type II or unspecified type, uncontrolled 250.02 [place] [address] [address] Apr, Anxiety 300.00 and Diabetes mellitus without mention of complication, type II or unspecified type, uncontrolled 250.02 [place] [address] [address] Apr, [place] [address] [address] Apr, Anxiety 300.00 and Depressio n 311 [place] [address] [address] Apr, Major depression, recurrent 296.30 ; Anxiety, generalized 300.02 and No condition on [place] II V71.09 [place] [address] [address] Apr, [place] [address] [address] Mar, Diabetes mellitus without me ntion of complication, type II or unspecified type, uncontrolled 250.02 and Anxiety 300.00 [facility] [address] [id number] [address] [place] [address] Mar, [facility] [address] [id number] [address] [place] [address] Feb, [facility] [address] [id number] [address] [place] [address] Feb, [facility] [address] [id number] [address] [place] [address] Feb, [facility] [address] [id number] [address] [place] [address] Jan, [facility] [address] [id number] [address] [place] [address] Jan, [facility] [address] [id number] [address] [place] [address] Jan, [facility] [address] [id number] [address] [place] [address] Jan, [facility] [address] [id number] [address] [place] [address] December, [facility] [address] [id number] [address] [place] [id number] December, Dental examination V72.2 [facility] [address] [id number] [address] [place] [address] December, Tooth pain 525.9 [facility] [address] [id number] [address] [place] [address] December, [facility] [address] [id number] [address] [place] [address] Nov, [facility] [address] [id number] [address] [place] [address] Nov, [facility] [address] [id number] [address] [place] [address] Oct, [facility] [place] [facility] [address] [id number] [address] [place] [address], [place] [address] Oct, [facility] [address] [id number] [address] [place] [address], [place] [address] Sep, [facility] [place] [facility] [address] [id number] [address] [place] [address], [place] [address] Sep, [facility] [place] [facility] [address] [id number] [address] [place] [address], [place] [address] Sep, [facility] [place] [facility] [address] [id number] [address] [place] [address], [place] [address] Sep, [facility] [address] [id number] [address] [place] [address], [place] [address] Aug, [facility] [address] [id number] [address] [place] [address], [place] [address] Aug, [facility] [address] [id number] [address] [place] [address], [place] [address] Aug, [facility] [address] [id number] [address] [place] [address], [place] [address] Aug, [facility] [address] [id number] [address] [place] [address], [place] [address] Jul, [facility] [address] [id number] [address] [place] [address], [place] [address] Jul, [facility] [place] [facility] [address] [id number] [address] [place] [address], [place] [address] Jun, [facility] [place] [facility] [address] [id number] [address] [place] [address], [place] [address] Jun, [facility] [place] [facility] [address] [id number] [address] [place] [address], [place] [address] May, [facility] [place] [facility] [address] [id number] [address] [place] [address], [place] [address] May, [facility] [place] [facility] [address] [id number] [address] [place] [address], [place] [address] May, [facility] [place] [facility] [address] [id number] [address] [place] [address], [place] [address] May, [facility] [place] [facility] [address] [id number] [address] [place] [address], [place] [address] May, [facility] [place] [facility] [address] [id number] [address] [place] [address], [place] [address] May, [facility] [place] [facility] [address] [id number] [address] [place] [address], [place] [address] Apr, [facility] [place] [facility] [address] [id number] [address] [place] [address], [place] [address] Apr, [facility] [place] [facility] [address] [id number] [address] [place] [address], [place] [address] Apr, [facility] [place] [facility] [address] [id number] [address] [place] [address], [place] [address] Apr, [facility] [place] [facility] [address] [id number] [address] [place] [address], [place] [address] Apr, [facility] [place] [facility] [address] [id number] [address] [place] [address], [place] [address] Apr, [facility] [place] [facility] [address] [id number] [address] [place] [address], [place] [address] Mar, [facility] [place] [facility] [address] [id number] [address] [place] [address], [place] [address] Mar, [facility] [place] [facility] [address] [id number] [address] [place] [address], [place] [address] Mar, [facility] [place] [facility] [address] [id number] [address] [place] [address], [place] [address] Mar, [facility] [place] [facility] [address] [id number] [address] [place] [address], [place] [address] Feb, [facility] [place] [facility] [address] [id number] [address] [place] [address], [place] [address] Feb, [facility] [place] [facility] [address] [id number] [facility] [place] [address] 14 Feb, 2014 [facility] [address] [id number] [address] [place] [address], [place] [address] 14 Feb, 2014 [facility] [address] [id number] [facility] [place] [address] Jan, [facility] [address] [id number] [address] [place] [address], [place] [address] Jan, [facility] [address] [id number] [address] [place] [address], [place] [address] Jan, [facility] [address] [id number] [address] [place] [address], [place] [address] Jan, [facility] [address] [id number] [address] [place] [address], [place] [address] Jan, [facility] [address] [id number] [address] [place] [address], [place] [address] Jan, [facility] [address] [id number] [address] [place] [address], [place] [address] Jan, [facility] [address] [id number] [address] [place] [address], [place] [address] Jan, [facility] [address] [id number] [address] [place] [address], [place] [address] Jan, [facility] [address] [id number] [address] [place] [address], [place] [address] Jan, [facility] [address] [id number] [address] [place] [address], [place] [address] December, [facility] [address] [id number] [address] [place] [address], [place] [address] December, [facility] [address] [id number] [address] [place] [address], [place] [address] December, [facility] [address] [id number] [address] [place] [address], [place] [address] December, [facility] [address] [id number] [address] [place] [address], [place] [address] December, [facility] [address] [id number] [address] [place] [address], [place] [address] Nov, [facility] [address] [id number] [address] [place] [address], [place] [address] Nov, [facility] [address] [id number] [address] [place] [address], [place] [address] Nov, [facility] [address] [id number] [address] [place] [address], [place] [address] Oct, [facility] [address] [id number] [address] [place] [address], [place] [address] Oct, [facility] [address] [id number] [address] [place] [address], [place] [address] Oct, [facility] [address] [id number] [address] [place] [address], [place] [address] Oct, [facility] [address] [id number] [address] [place] [address], [place] [address] Oct, [facility] [address] [id number] [address] [place] [address], [place] [address] Oct, [facility] [address] [id number] [address] [place] [address], [place] [address] Oct, [facility] [place] [facility] [address] [id number] [address] [place] [address], [place] [address] Oct, [facility] [address] [id number] [address] [place] [address], [place] [address] Oct, [facility] [place] [facility] [address] [id number] [address] [place] [address], [place] [address] Sep, [facility] [address] [id number] [address] [place] [address], [place] [address] Sep, [facility] [address] [id number] [address] [place] [address] Aug, [facility] [address] [id number] [address] [place] [address], [place] [address] Aug, [facility] [address] [id number] [address] [place] [address] Aug, [facility] [address] [id number] [address] [place] [address], [place] [address] Aug, [facility] [address] [id number] [address] [place] [address], [place] [address] Jul, [facility] [address] [id number] [address] [place] [address], [place] [address] Jul, [facility] [address] [id number] [address] [place] [address], [place] [address] Jul, [facility] [address] [id number] [address] [place] [address] Jul, [facility] [address] [id number] [address] [place] [address], [place] [address] Jun, [facility] [address] [id number] [address] [place] [address] Jun, [facility] [address] [id number] [address] [place] [address] Jun, [facility] [address] [id number] [address] [place] [address] Jun, [facility] [address] [id number] [address] [place] [address] May, [facility] [address] [id number] [address] [place] [address] May, [facility] [address] [id number] [address] [place] [address] May, [facility] [address] [id number] [address] [place] [address] May, [facility] [address] [id number] [address] [place] [address], [place] [id number] May, [facility] [address] [id number] [address] [place] [address], [place] [id number] May, [facility] [address] [id number] [address] [place] [address], [place] [id number] Apr, [facility] [address] [id number] [address] [place] [address], [place] [id number] Mar, [facility] [address] [id number] [address] [place] [address], [place] [id number] Mar, [facility] [address] [id number] [address] [place] [address], [place] [id number] Mar, [facility] [address] [id number] [address] [place] [address], [place] [id number] Feb, [facility] [address] [id number] [address] [place] [address], [place] [id number] Feb, [facility] [address] [id number] [address] [place] [address], [place] [id number] Feb, [facility] [address] [id number] [address] [place] [address], [place] [id number] Jan, [facility] [address] [id number] [address] [place] [address], [place] [id number] Jan, [facility] [address] [id number] [address] [place] [address], [place] [id number] December, [facility] [address] [id number] [address] [place] [address], [place] [id number] December, [facility] [address] [id number] [address] [place] [address], [place] [id number] December, [facility] [address] [id number] [address] [place] [address], [place] [id number] Nov, [facility] [address] [id number] [address] [place] [address], [place] [id number] 24 Nov, 2012 [facility] [address] [id number] [address] [place] [address], [place] [id number] 23 Nov, 2012 [facility] [address] [id number] [address] [place] [address], [place] [id number] 2012 [facility] [address] [id number] [address] [place] [address], [place] [id number] 15 Nov, 2012 [facility] [address] [id number] [address] [place] [address], [place] [id number] 05 Nov, 2012 [facility] [address] [id number] [address] [place] [address], [place] [id number] 25 Oct, 2012 [facility] [address] [id number] [address] [place] [address], [place] [id number] 14 Oct, 2012 [facility] [address] [id number] [address] [place] [address], [place] [id number] Oct, [facility] [address] [id number] [address] [place] [address] [place] [address], [place] [id number] 06 Oct, 2012 [facility] [address] [id number] [address] [place] [address], [place] [id number] 28 Sep, 2012 [facility] [address] [id number] [address] [place] [address], [place] [id number] Sep, [facility] [address] [id number] [address] [place] [address], [place] [id number] 18 Sep, 2012 [facility] [address] [id number] [address] [place] [address], [place] [id number] Sep, [facility] [address] [id number] [address] [place] [address], [place] [id number] Sep, [facility] [address] [id number] [address] [place] [address], [place] [phone] Aug, [facility] [address] [id number] [address] [place] [address], [place] [phone] Aug, [facility] [address] [id number] [address] [place] [id number] Aug, [facility] [address] [id number] [address] [place] [id number] Aug, [facility] [address] [id number] [address] [place] [phone] Aug, [facility] [address] [facility] [id number] [address] [place] [phone] Aug, [facility] [address] [id number] [address] [place] [phone] May, [facility] [address] [facility] [id number] [address] [place] [phone] May, IMMUNIZATIONS No Known Immunizations SOCIAL HISTORY Never Assessed REASON FOR VISIT PLAN OF CARE VITAL SIGNS Height 69 in 2012-12-24 Weight 148.56 lbs 2012-12-24 Temperature 96 degrees Fahrenheit 2012-12-24 Heart Rate 100 bpm 2012-12-24 Respiratory Rate 18 2012-12-24 Blood pressure systolic 110 mmHg 2012-12-24 Blood pressure diastolic 89 mmHg 2012-12-24 MEDICATIONS Unknown Medications RESULTS No Results PROCEDURES Procedure Date Ordered Result Body Site GLYCATED HEMOGLOBIN TEST December 24, 2012 INSTRUCTIONS MEDICATIONS ADMINISTERED No Known Medications MEDICAL (GENERAL) HISTORY Type Description Date Medical History type I diabetes Medical History hx of MRSA infections Medical History depression Medical History anxiety Medical History Meth Use IV 01/2020 per Hospital Records Surgical History I & D-MRSA Hospitalization History MRSA 2004 Hospitalization History Hepatitis A/kidney and liver failure Hospitalization History hallucinations Hospitalization History [facility] [place]- Hep A 2019
--- OUTSIDE RECORDS SUMMARY | 2020-04-04 03:11 | XMS REPORT ---
Author Author Darien VILLALOBOS Organization [facility] Address [address] [place] [address] Care Team Providers Care Division Merchandise Manager Name Role Phone CHRISTOPHER VILLALOBOS Unavailable PROBLEMS Type Condition ICD9-CM Code JPV74-TA Code Onset Dates Condition S tatus SNOMED Code Problem Schizoaffective disorder, depressive type F25.1 Active 74955767 Problem Other chronic pain G89.29 Active 8 8623707 Problem Type 1 diabetes mellitus without complication E10. 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 Active 759352515 Problem Mixed hyperlipidemia E78.2 Active 095487629 Problem Anxiety disorder, unspecified F41.9 Active 595124521 Problem Schizoaffective disorder, bipolar type F25.0 Active 12610590 Problem Panic disorder F41.0 Active 60502 1005 ALLERGIES No Information ENCOUNTERS Encounter Location Date Diagnosis [facility] [address] [facility] [id number] [address] [place] [phone] Apr, [facility] [address] [facility] [id number] [address] [place] [address] Feb, [facility] [address] [facility] [id number] [address] [place] [address] Feb, [facility] [address] [facility] [id number] [address] [place] [address] Feb, [facility] [address] [facility] [id number] [address] [place] [address] Feb, Type 1 diabetes mellitus wit hout complication E10.9 [facility] [address] [facility] [id number] [address] [place] [address] Feb, Methamphetamine use disorder , severe, dependence F15.20 ; 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 and Stimulant- induced mood disorder with mixed depressive and manic symptoms F15.94 [place] [address] [address] Feb, Panic disorder F41.0 and Andre izoaffective disorder, bipolar type F25.0 [place] [address] [address] Feb, Counseled by nurse Z71.9 and Light-headed feeling R42 [address] [address] Feb, [facility] [address] [address] Feb, Anxiety disorder, unspecifie d F41.9 [place] [address] [address] Jan, Type 1 diabetes mellitus wit hout complication E10.9 ; Schizoaffective disorder, depressive type F25.1 and Mixed hyperlipidemia E78.2 [place] [address] [address] Jan, [facility] [place] [address] [address] Jan, Hordeolum externum of left u pper eyelid H00.014 [place] [address] [place] [address] Jan, Anxiety disorder, unspecifie d F41.9 [facility] [address] [address] Jan, 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 and Worried well Z71.1 [place] [address] [address] [place] [id number] [address] [place] [address] Oct, [place] [address] [place] [address] Jun, [facility] [address] [id number] [address] [place] [address] Jun, [facility] [address] [facility] [id number] [address] [place] [address] Jun, [facility] [address] [facility] [id number] [address] [place] [address] May, Type 1 diabetes mellitus wit hout complication E10.9 [facility] [address] [facility] [id number] [address] [place] [address] May, Type 1 diabetes mellitus wit hout complication E10.9 ; Encounter for immunization Z23 and Mood disorder F39 [facility] [address] [facility] [id number] [address] [place] [address] December, [facility] [address] [place] [id number] [address] [place] [address] Nov, [facility] [address] [facility] [id number] [address] [place] [address] Nov, Uncontrolled type 1 diabetes mellitus without complication E10.9 [place] [address] [address] [place] [id number] [address] [place] [address] Nov, Impingement syndrome, should er, right M75.41 and Adhesive capsulitis of right shoulder M75.01 [facility] [address] [place] [id number] [address] [place] [address] Nov, Uncontrolled type 1 diabetes mellitus without complication E10.9 [facility] [address] [facility] [id number] [address] [place] [address] Oct, Uncontrolled type 1 diabetes mellitus without complication E10.9 ; Other chronic pain G89.29 ; Pain in right shoulder M25.511 and Schizoaffective disorder, depressive type F25.1 [facility] [address] [facility] [id number] [address] [place] [address] May, Mood disorder F39 and Contro lled diabetes mellitus type 1 without complications E10.9 [facility] [address] [id number] [address] [place] [address] May, [facility] [address] [id number] [address] [place] [address] May, [facility] [address] [facility] [id number] [address] [place] [address] Apr, Mood disorder F39 ; 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 and Type 1 diabetes mellitus with hyperglycemia E10.65 [facility] [address] [id number] [address] [place] [address] Apr, Mood disorder F39 [facility] [address] [id number] [address] [place] [address] Mar, [facility] [address] [facility] [id number] [address] [place] [address] Feb, [facility] [address] [facility] [id number] [address] [place] [address] Jan, [facility] [address] [id number] [address] [place] [address] Jan, [facility] [address] [facility] [id number] [address] [place] [address] Jan, [facility] [address] [facility] [id number] [address] [place] [address] December, [facility] [address] [facility] [id number] [address] [place] [address] December, 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 and Controlled type 1 diabetes mellitus with diabetic neuropathy, with long-term current use of insulin E10.40 [facility] [address] [facility] [id number] [address] [place] [address] December, Schizo-affective schizophren ia F25.0 [facility] [address] [facility] [id number] [address] [place] [address] Nov, [facility] [address] [facility] [id number] [address] [place] [id number] Nov, Anxiety disorder, unspecifie d F41.9 and Schizo-affective schizophrenia F25.0 [facility] [address] [facility] [id number] [address] [place] [address] Nov, Schizo-affective schizophren ia F25.0 [facility] [address] [facility] [id number] [address] [place] [address] Oct, [facility] [address] [id number] [address] [place] [id number] Sep, [facility] [address] [facility] [id number] [address] [place] [address] Sep, [facility] [address] [facility] [id number] [address] [place] [address] Sep, [facility] [address] [facility] [id number] [address] [place] [address] Aug, [facility] [address] [facility] [id number] [address] [place] [address] Aug, [facility] [address] [facility] [id number] [address] [place] [address] Jul, [facility] [address] [facility] [id number] [address] [place] [address] Jul, Diabetes type 1, controlled E10.9 [facility] [address] [facility] [id number] [address] [place] [address] Jun, Diabetes mellitus without me ntion of complication, type II or unspecified type, uncontrolled 250.02 [facility] [address] [facility] [id number] [address] [place] [id number] 09 Jun, 2015 Diabetes type 1, controlled E10.9 [facility] [address] [facility] [id number] [address] [place] [address] May, Diabetes mellitus without me ntion of complication, type II or unspecified type, uncontrolled 250.02 [place] [address] [address] May, Anxiety 300.00 [place] [address] [address] May, Diabetes type 1, controlled E10.9 ; Schizo-affective schizophrenia F25.0 ; Mood disorder F39 and Bipolar 1 disorder F31.9 [place] [address] [address] May, [place] [address] [address] May, Anxiety F41.9 and Depression F32.9 [place] [address] [address] [place] [id number] Apr, Diabetes mellitus without me ntion of complication, type II or unspecified type, uncontrolled 250.02 [place] [address] [address] Apr, Anxiety 300.00 and Diabetes mellitus without mention of complication, type II or unspecified type, uncontrolled 250.02 [place] [address] [address] Apr, [place] [address] [address] Apr, Anxiety 300.00 and Depressio n 311 [place] [address] [address] Apr, Major depression, recurrent 296.30 ; Anxiety, generalized 300.02 and No condition on [place] II V71.09 [place] [address] [address] Apr, [place] [address] [address] Mar, Diabetes mellitus without me ntion of complication, type II or unspecified type, uncontrolled 250.02 and Anxiety 300.00 [facility] [address] [id number] [address] [place] [address] Mar, [facility] [address] [id number] [address] [place] [id number] Feb, [facility] [address] [id number] [address] [place] [address] Feb, [facility] [address] [id number] [address] [place] [address] Feb, [facility] [address] [id number] [address] [place] [address] Jan, [facility] [address] [id number] [address] [place] [address] Jan, [facility] [address] [id number] [address] [place] [phone] Jan, [facility] [address] [id number] [address] [place] [phone] Jan, [facility] [address] [id number] [address] [place] [phone] December, [facility] [address] [id number] [address] [place] [id number] December, Dental examination V72.2 [facility] [address] [id number] [address] [place] [address] December, Tooth pain 525.9 [facility] [address] [id number] [address] [place] [address] December, [facility] [address] [id number] [address] [place] [address] Nov, [facility] [address] [id number] [address] [place] [id number] Nov, [facility] [address] [id number] [address] [place] [phone] Oct, [facility] [place] [facility] [address] [id number] [address] [place] [address], [place] [address] Oct, [facility] [address] [id number] [address] [place] [address], [place] [address] Sep, [facility] [place] [facility] [address] [id number] [address] [place] [address], [place] [address] Sep, [facility] [place] [facility] [address] [id number] [address] [place] [address], [place] [address] Sep, [facility] [place] [facility] [address] [id number] [address] [place] [address], [place] [address] Sep, [facility] [address] [id number] [address] [place] [address], [place] [address] Aug, [facility] [address] [id number] [address] [place] [address], [place] [address] Aug, [facility] [address] [id number] [address] [place] [address], [place] [address] Aug, [facility] [address] [id number] [address] [place] [address], [place] [address] Aug, [facility] [address] [id number] [address] [place] [address], [place] [address] Jul, [facility] [address] [id number] [address] [place] [address], [place] [address] Jul, [facility] [place] [facility] [address] [id number] [address] [place] [address], [place] [address] Jun, [facility] [place] [facility] [address] [id number] [address] [place] [address], [place] [address] Jun, [facility] [place] [facility] [address] [id number] [address] [place] [address], [place] [address] May, [facility] [place] [facility] [address] [id number] [address] [place] [address], [place] [address] May, [facility] [place] [facility] [address] [id number] [address] [place] [address], [place] [address] May, [facility] [place] [facility] [address] [id number] [address] [place] [address], [place] [address] May, [facility] [place] [facility] [address] [id number] [address] [place] [address], [place] [address] May, [facility] [place] [facility] [address] [id number] [address] [place] [address], [place] [address] May, [facility] [place] [facility] [address] [id number] [address] [place] [address], [place] [address] Apr, [facility] [place] [facility] [address] [id number] [address] [place] [address], [place] [address] Apr, [facility] [place] [facility] [address] [id number] [address] [place] [address], [place] [address] Apr, [facility] [place] [facility] [address] [id number] [address] [place] [address], [place] [address] Apr, [facility] [place] [facility] [address] [id number] [address] [place] [address], [place] [address] Apr, [facility] [place] [facility] [address] [id number] [address] [place] [address], [place] [address] Apr, [facility] [place] [facility] [address] [id number] [address] [place] [address], [place] [address] Mar, [facility] [place] [facility] [address] [id number] [address] [place] [address], [place] [address] Mar, [facility] [place] [facility] [address] [id number] [address] [place] [address], [place] [address] Mar, [facility] [place] [facility] [address] [id number] [address] [place] [address], [place] [address] Mar, [facility] [place] [facility] [address] [id number] [address] [place] [address], [place] [address] Feb, [facility] [place] [facility] [address] [id number] [address] [place] [address], [place] [address] Feb, [facility] [place] [facility] [address] [id number] [facility] [place] [address] 14 Feb, 2014 [facility] [address] [id number] [address] [place] [address], [place] [address] 14 Feb, 2014 [facility] [address] [id number] [facility] [place] [address] Jan, [facility] [address] [id number] [address] [place] [address], [place] [address] Jan, [facility] [address] [id number] [address] [place] [address], [place] [address] Jan, [facility] [address] [id number] [address] [place] [address], [place] [address] Jan, [facility] [address] [id number] [address] [place] [address], [place] [address] Jan, [facility] [address] [id number] [address] [place] [address], [place] [address] Jan, [facility] [address] [id number] [address] [place] [address], [place] [address] Jan, [facility] [address] [id number] [address] [place] [address], [place] [address] Jan, [facility] [address] [id number] [address] [place] [address], [place] [address] Jan, [facility] [address] [id number] [address] [place] [address], [place] [address] Jan, [facility] [address] [id number] [address] [place] [address], [place] [address] December, [facility] [address] [id number] [address] [place] [address], [place] [address] December, [facility] [address] [id number] [address] [place] [address], [place] [address] December, [facility] [address] [id number] [address] [place] [address], [place] [address] December, [facility] [address] [id number] [address] [place] [address], [place] [address] December, [facility] [address] [id number] [address] [place] [address], [place] [address] Nov, [facility] [address] [id number] [address] [place] [address], [place] [address] Nov, [facility] [address] [id number] [address] [place] [address], [place] [address] Nov, [facility] [address] [id number] [address] [place] [address], [place] [address] Oct, [facility] [address] [id number] [address] [place] [address], [place] [address] Oct, [facility] [address] [id number] [address] [place] [address], [place] [address] Oct, [facility] [address] [id number] [address] [place] [address], [place] [address] Oct, [facility] [address] [id number] [address] [place] [address], [place] [address] Oct, [facility] [address] [id number] [address] [place] [address], [place] [address] Oct, [facility] [address] [id number] [address] [place] [address], [place] [address] Oct, [facility] [place] [facility] [address] [id number] [address] [place] [address], [place] [address] Oct, [facility] [address] [id number] [address] [place] [address], [place] [address] Oct, [facility] [place] [facility] [address] [id number] [address] [place] [address], [place] [address] Sep, [facility] [address] [id number] [address] [place] [address], [place] [address] Sep, [facility] [address] [id number] [address] [place] [address] Aug, [facility] [address] [id number] [address] [place] [address], [place] [address] Aug, [facility] [address] [id number] [address] [place] [address] Aug, [facility] [address] [id number] [address] [place] [address], [place] [address] Aug, [facility] [address] [id number] [address] [place] [address], [place] [address] Jul, [facility] [address] [id number] [address] [place] [address], [place] [address] Jul, [facility] [address] [id number] [address] [place] [address], [place] [address] Jul, [facility] [address] [id number] [address] [place] [address] Jul, [facility] [address] [id number] [address] [place] [address], [place] [address] Jun, [facility] [address] [id number] [address] [place] [address] Jun, [facility] [address] [id number] [address] [place] [address] Jun, [facility] [address] [id number] [address] [place] [id number] Jun, [facility] [address] [id number] [address] [place] [id number] May, [facility] [address] [id number] [address] [place] [id number] May, [facility] [address] [id number] [address] [place] [id number] May, [facility] [address] [id number] [address] [place] [id number] May, [facility] [address] [id number] [address] [place] [address], [place] [address] May, [facility] [address] [id number] [address] [place] [address], [place] [address] May, [facility] [address] [id number] [address] [place] [address], [place] [address] Apr, [facility] [address] [id number] [address] [place] [address], [place] [address] Mar, [facility] [address] [id number] [address] [place] [address], [place] [address] Mar, [facility] [address] [id number] [address] [place] [address], [place] [address] Mar, [facility] [address] [id number] [address] [place] [address], [place] [address] Feb, [facility] [address] [id number] [address] [place] [address], [place] [address] Feb, [facility] [address] [id number] [address] [place] [address], [place] [address] Feb, [facility] [address] [id number] [address] [place] [address], [place] [address] Jan, [facility] [address] [id number] [address] [place] [address], [place] [address] Jan, [facility] [address] [id number] [address] [place] [address], [place] [address] December, [facility] [address] [id number] [address] [place] [address], [place] [address] December, [facility] [address] [id number] [address] [place] [address], [place] [address] December, [facility] [address] [id number] [address] [place] [address], [place] [address] Nov, [facility] [address] [id number] [address] [place] [address], [place] [address] 24 Nov, 2012 [facility] [address] [id number] [address] [place] [address], [place] [address] 23 Nov, 2012 [facility] [address] [id number] [address] [place] [address], [place] [address] 2012 [facility] [address] [id number] [address] [place] [address], [place] [address] 15 Nov, 2012 [facility] [address] [id number] [address] [place] [address], [place] [id number] 05 Nov, 2012 [facility] [address] [id number] [address] [place] [address], [place] [address] 25 Oct, 2012 [facility] [address] [id number] [address] [place] [address], [place] [address] 14 Oct, 2012 [facility] [address] [id number] [address] [place] [address], [place] [address] Oct, [facility] [address] [id number] [address] [place] [address], [place] [id number] 06 Oct, 2012 [facility] [address] [id number] [address] [place] [address], [place] [address] 28 Sep, 2012 [facility] [address] [id number] [address] [place] [address], [place] [address] Sep, [facility] [address] [id number] [address] [place] [address], [place] [address] 18 Sep, 2012 [facility] [address] [id number] [address] [place] [address], [place] [address] Sep, [facility] [address] [id number] [address] [place] [address], [place] [address] Sep, [facility] [address] [id number] [address] [place] [address], [place] [address] Aug, [facility] [address] [id number] [address] [place] [address], [place] [address] Aug, [facility] [address] [id number] [address] [place] [id number] Aug, [facility] [address] [id number] [address] [place] [id number] Aug, [facility] [address] [facility] [id number] [address] [place] [id number] Aug, [facility] [address] [facility] [id number] [address] [place] [id number] Aug, [facility] [address] [facility] [id number] [address] [place] [id number] May, [facility] [address] [facility] [id number] [address] [place] [id number] May, IMMUNIZATIONS No Known Immunizations SOCIAL HISTORY Never Assessed REASON FOR VISIT PLAN OF CARE VITAL SIGNS Height 69 in 2012-11-23 Weight 149.12 lbs 2012-11-23 Temperature 97.4 degrees Fahrenheit 2012-11-23 Heart Rate 100 bpm 2012-11-23 Respiratory Rate 16 bpm 2012-11-23 Blood pressure systolic 120 mmHg 2012-11-23 Blood pressure diastolic 90 mmHg 2012-11-23 MEDICATIONS Unknown Medications RESULTS No Results PROCEDURES [...] liver failure Hospitalization History hallucinations Hospitalization History [facility]- Hep A 2019
--- OUTSIDE RECORDS SUMMARY | 2020-04-04 03:11 | XMS REPORT ---
Author Author Darien Guerra Doctor Organization [facility] Address Unknown Phone Unavailable Care Team Providers Care Sand Blaster Name Role Phone Migration, Doctor Unavailable Unavailable PROBLEMS Type Condition ICD9-CM Code ZOB27-CA Code Onset Dates Condition S tatus SNOMED Code Problem Schizoaffective disorder, depressive type F25.1 Active 39603897 Problem Other chronic pain G89.29 Active 8 8215363 Problem Type 1 diabetes mellitus without complication E10. 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 [id number] [address] [place] [phone] Apr, [facility] [address] [facility] [id number] [address] [place] [phone] Feb, [facility] [address] [facility] [id number] [address] [place] [phone] Feb, [facility] [address] [facility] [id number] [address] [place] [phone] Feb, [facility] [address] [facility] [id number] [address] [place] [id number] Feb, Type 1 diabetes mellitus wit hout complication E10.9 [facility] [address] 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 [id number] [address] [place] [phone] Feb, Panic disorder F41.0 and Andre izoaffective disorder, bipolar type F25.0 [place] [address] [place] [id number] [address] [place] [id number] Feb, Counseled by nurse Z71.9 and Light-headed feeling R42 [place] [address] [facility] [id number] [address] [place] [phone] Feb, [facility] [address] [place] [id number] [place] [phone] Feb, Anxiety disorder, unspecifie d F41.9 [place] [address] [place] [id number] [place] [phone] Jan, Type 1 diabetes mellitus wit hout complication E10.9 ; Schizoaffective disorder, depressive type F25.1 and Mixed hyperlipidemia E78.2 [place] [address] [place] [id number] [address] [place] [phone] Jan, [facility] [address] [place] [id number] [address] [place] [phone] Jan, Hordeolum externum of left u pper eyelid H00.014 [place] [address] [place] [id number] [address] [place] [phone] Jan, Anxiety disorder, unspecifie d F41.9 [facility] [address] [facility] [id number] [address] [place] [phone] Jan, 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 and Worried well Z71.1 [place] [address] [facility] [id number] [address] [place] [phone] Oct, [place] [address] [facility] [id number] [address] [place] [phone] Jun, [place] [address] [id number] [address] [place] [phone] Jun, [facility] [address] [facility] [id number] [address] [place] [phone] Jun, [facility] [address] [id number] [address] [place] [phone] May, Type 1 diabetes mellitus wit hout complication E10.9 [place] [address] [facility] [id number] [address] [place] [phone] May, Type 1 diabetes mellitus wit hout complication E10.9 ; Encounter for immunization Z23 and Mood disorder F39 [place] [address] [facility] [id number] [address] [place] [phone] December, [place] [address] [place] [id number] [address] [place] [phone] Nov, [place] [address] [facility] [id number] [address] [place] [phone] Nov, Uncontrolled type 1 diabetes mellitus without complication E10.9 [place] [address] [facility] [id number] [address] [place] [phone] Nov, Impingement syndrome, should er, right M75.41 and Adhesive capsulitis of right shoulder M75.01 [place] [address] [facility] [id number] [address] [place] [id number] Nov, Uncontrolled type 1 diabetes mellitus without complication E10.9 [facility] [address] [facility] [id number] [address] [place] [phone] Oct, Uncontrolled type 1 diabetes mellitus without complication E10.9 ; Other chronic pain G89.29 ; Pain in right shoulder M25.511 and Schizoaffective disorder, depressive type F25.1 [facility] [address] [facility] [id number] [address] [place] [id number] May, Mood disorder F39 and Contro lled diabetes mellitus type 1 without complications E10.9 [place] [address] [facility] [id number] [address] [place] [phone] May, [facility] [address] [id number] [address] [place] [phone] May, [facility] [address] [facility] [id number] [address] [place] [phone] Apr, Mood disorder F39 ; 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 and Type 1 diabetes mellitus with hyperglycemia E10.65 [facility] [address] [id number] [address] [place] [phone] Apr, Mood disorder F39 [facility] [address] [id number] [address] [place] [phone] Mar, [facility] [address] [id number] [address] [place] [phone] Feb, [facility] [address] [id number] [address] [place] [phone] Jan, [facility] [address] [id number] [address] [place] [phone] Jan, [facility] [address] [id number] [address] [place] [phone] Jan, [facility] [address] [id number] [address] [place] [phone] December, [facility] [address] [id number] [address] [place] [phone] December, 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 and Controlled type 1 diabetes mellitus with diabetic neuropathy, with long-term current use of insulin E10.40 [facility] [address] [id number] [address] [place] [phone] December, Schizo-affective schizophren ia F25.0 [facility] [address] [id number] [address] [place] [phone] Nov, [facility] [address] [facility] [id number] [address] [place] [phone] Nov, Anxiety disorder, unspecifie d F41.9 and Schizo-affective schizophrenia F25.0 [facility] [address] [facility] [id number] [address] [place] [phone] Nov, Schizo-affective schizophren ia F25.0 [facility] [address] [facility] [id number] [address] [place] [phone] Oct, [facility] [address] [id number] [address] [place] [phone] Sep, [facility] [address] [id number] [address] [place] [phone] Sep, [facility] [address] [facility] [id number] [address] [place] [phone] Sep, [facility] [address] [facility] [id number] [address] [place] [phone] Aug, [facility] [address] [facility] [id number] [address] [place] [phone] Aug, [facility] [address] [facility] [id number] [address] [place] [phone] Jul, [facility] [address] [place] [id number] [address] [place] [id number] Jul, Diabetes type 1, controlled E10.9 [facility] [address] [place] [id number] [address] [place] [phone] Jun, Diabetes mellitus without me ntion of complication, type II or unspecified type, uncontrolled 250.02 [facility] [address] [facility] [id number] [address] [place] [phone] 09 Jun, 2015 Diabetes type 1, controlled E10.9 [facility] [address] [facility] [id number] [address] [place] [phone] May, Diabetes mellitus without me ntion of complication, type II or unspecified type, uncontrolled 250.02 [facility] [address] [facility] [id number] [address] [place] [address] May, Anxiety 300.00 [place] [address] [id number] May, Diabetes type 1, controlled E10.9 ; Schizo-affective schizophrenia F25.0 ; Mood disorder F39 and Bipolar 1 disorder F31.9 [place] [address] [address] May, [place] [address] [address] May, Anxiety F41.9 and Depression F32.9 [place] [address] [place] [id number] Apr, Diabetes mellitus without me ntion of complication, type II or unspecified type, uncontrolled 250.02 [place] [address] [address] Apr, Anxiety 300.00 and Diabetes mellitus without mention of complication, type II or unspecified type, uncontrolled 250.02 [place] [address] [address] Apr, [place] [address] [address] Apr, Anxiety 300.00 and Depressio n 311 [place] [address] [address] Apr, Major depression, recurrent 296.30 ; Anxiety, generalized 300.02 and No condition on [place] II V71.09 [place] [address] [address] Apr, [place] [address] [place] [id number] Mar, Diabetes mellitus without me ntion of complication, type II or unspecified type, uncontrolled 250.02 and Anxiety 300.00 [place] [address] [address] Mar, [facility] [address] [id number] [address] [place] [phone] Feb, [facility] [address] [id number] [address] [place] [phone] Feb, [facility] [address] [id number] [address] [place] [phone] Feb, [facility] [address] [id number] [address] [place] [id number] Jan, [facility] [address] [id number] [address] [place] [phone] Jan, [facility] [address] [id number] [address] [place] [phone] Jan, [facility] [address] [id number] [address] [place] [phone] Jan, [facility] [address] [id number] [address] [place] [phone] December, [facility] [address] [id number] [address] [place] [id number] December, Dental examination V72.2 [facility] [address] [id number] [address] [place] [phone] December, Tooth pain 525.9 [facility] [address] [id number] [address] [place] [phone] December, [facility] [address] [id number] [address] [place] [phone] Nov, [facility] [address] [id number] [address] [place] [phone] Nov, [facility] [address] [id number] [address] [place] [phone] Oct, [facility] [address] [id number] [address] [place] [phone] Oct, [facility] [address] [id number] [address] [place] [address], [place] [address] Sep, [facility] [address] [id number] [address] [place] [address], [place] [address] Sep, [facility] [address] [id number] [address] [place] [address], [place] [address] Sep, [facility] [address] [id number] [address] [place] [address], [place] [address] Sep, [facility] [address] [id number] [address] [place] [address], [place] [address] Aug, [facility] [address] [id number] [address] [place] [address], [place] [address] Aug, [facility] [address] [id number] [address] [place] [address], [place] [address] Aug, [facility] [address] [id number] [address] [place] [address], [place] [address] Aug, [facility] [address] [id number] [address] [place] [address], [place] [address] Jul, [facility] [address] [id number] [address] [place] [address], [place] [address] Jul, [facility] [address] [id number] [address] [place] [address], [place] [address] Jun, [facility] [address] [id number] [address] [place] [address], [place] [address] Jun, [facility] [address] [id number] [address] [place] [address], [place] [address] May, [facility] [address] [id number] [address] [place] [address], [place] [address] May, [facility] [address] [id number] [address] [place] [address], [place] [address] May, [facility] [address] [id number] [address] [place] [address], [place] [address] May, [facility] [address] [id number] [address] [place] [address], [place] [address] May, [facility] [address] [id number] [address] [place] [address], [place] [address] May, [facility] [address] [id number] [address] [place] [address], [place] [address] Apr, [facility] [address] [id number] [address] [place] [address], [place] [address] Apr, [facility] [address] [id number] [address] [place] [address], [place] [address] Apr, [facility] [address] [id number] [address] [place] [address], [place] [address] Apr, [facility] [address] [id number] [address] [place] [address], [place] [address] Apr, [facility] [address] [id number] [address] [place] [address], [place] [address] Apr, [facility] [address] [id number] [address] [place] [address], [place] [address] Mar, [facility] [address] [id number] [address] [place] [address], [place] [address] Mar, [facility] [address] [id number] [address] [place] [address], [place] [address] Mar, [facility] [address] [id number] [address] [place] [address], [place] [address] Mar, [facility] [address] [id number] [address] [place] [address], [place] [address] Feb, [facility] [address] [id number] [address] [place] [address], [place] [address] Feb, [facility] [address] [id number] [address] [place] [address], [place] [address] Feb, [facility] [address] [id number] [facility] [place] [address] Feb, [facility] [address] [id number] [facility] [place] [address] Jan, [facility] [address] [id number] [address] [place] [address], [place] [address] Jan, [facility] [address] [id number] [address] [place] [address], [place] [address] Jan, [facility] [address] [id number] [address] [place] [address], [place] [address] Jan, [facility] [address] [id number] [address] [place] [address], [place] [address] Jan, [facility] [address] [id number] [address] [place] [address], [place] [address] Jan, [facility] [address] [id number] [address] [place] [address], [place] [address] Jan, [facility] [address] [id number] [address] [place] [address], [place] [address] Jan, [facility] [address] [id number] [address] [place] [address], [place] [address] Jan, [facility] [address] [id number] [address] [place] [address], [place] [address] Jan, [facility] [address] [id number] [address] [place] [address], [place] [address] December, [facility] [address] [id number] [address] [place] [address], [place] [address] December, [facility] [address] [id number] [address] [place] [address], [place] [address] December, [facility] [address] [id number] [address] [place] [address], [place] [address] December, [facility] [address] [id number] [address] [place] [address], [place] [address] December, [facility] [address] [id number] [facility] [place] [address] Nov, [facility] [address] [id number] [address] [place] [address], [place] [address] Nov, [facility] [address] [id number] [address] [place] [address], [place] [address] Nov, [facility] [address] [id number] [address] [place] [address], [place] [address] Oct, [facility] [address] [id number] [address] [place] [address], [place] [address] Oct, [facility] [address] [id number] [address] [place] [address], [place] [address] Oct, [facility] [address] [id number] [address] [place] [address], [place] [address] Oct, [facility] [address] [id number] [address] [place] [address], [place] [address] Oct, [facility] [address] [id number] [address] [place] [address], [place] [address] Oct, [facility] [address] [id number] [address] [place] [address], [place] [address] Oct, [facility] [address] [id number] [address] [place] [address], [place] [address] Oct, [facility] [address] [id number] [address] [place] [address], [place] [address] Oct, [facility] [address] [id number] [address] [place] [address], [place] [address] Sep, [facility] [address] [id number] [address] [place] [address], [place] [address] Sep, [facility] [address] [id number] [address] [place] [address], [place] [address] Aug, [facility] [address] [id number] [address] [place] [address], [place] [address] Aug, [facility] [address] [id number] [address] [place] [address], [place] [address] Aug, [facility] [address] [id number] [address] [place] [address], [place] [address] Aug, [facility] [address] [id number] [address] [place] [address], [place] [address] Jul, [facility] [address] [id number] [address] [place] [address], [place] [address] Jul, [facility] [address] [id number] [address] [place] [address], [place] [address] Jul, [facility] [address] [id number] [address] [place] [address], [place] [address] Jul, [facility] [address] [id number] [address] [place] [address], [place] [address] Jun, [facility] [address] [id number] [address] [place] [address], [place] [address] Jun, [facility] [address] [id number] [address] [place] [address], [place] [address] Jun, [facility] [address] [id number] [address] [place] [address], [place] [address] Jun, [facility] [address] [id number] [address] [place] [address], [place] [address] May, [facility] [address] [id number] [address] [place] [address], [place] [address] May, [facility] [address] [id number] [address] [place] [address], [place] [address] May, [facility] [address] [id number] [address] [place] [address], [place] [address] May, [facility] [address] [id number] [address] [place] [address], [place] [address] May, [facility] [address] [id number] [address] [place] [address], [place] [address] May, [facility] [address] [id number] [address] [place] [address], [place] [address] Apr, [facility] [address] [id number] [address] [place] [address], [place] [address] Mar, [facility] [address] [id number] [address] [place] [address], [place] [address] Mar, [facility] [address] [id number] [address] [place] [address], [place] [address] Mar, [facility] [address] [id number] [address] [place] [address], [place] [address] Feb, [facility] [address] [id number] [address] [place] [address], [place] [address] Feb, [facility] [address] [id number] [address] [place] [address], [place] [address] Feb, [facility] [address] [id number] [address] [place] [address], [place] [address] Jan, [facility] [address] [id number] [address] [place] [address], [place] [address] Jan, [facility] [address] [id number] [address] [place] [address], [place] [address] December, [facility] [address] [id number] [address] [place] [address], [place] [address] December, [facility] [address] [id number] [address] [place] [address], [place] [address] December, [facility] [address] [id number] [address] [place] [address], [place] [address] Nov, [facility] [address] [id number] [address] [place] [address], [place] [address] Nov, [facility] [address] [id number] [address] [place] [address], [place] [address] 23 Nov, 2012 [facility] [address] [id number] [address] [place] [address], [place] [address] 2012 [facility] [address] [id number] [address] [place] [address], [place] [address] 15 Nov, 2012 [facility] [address] [id number] [address] [place] [place] [address], [place] [id number] 05 Nov, 2012 [facility] [address] [id number] [address] [place] [address], [place] [id number] 25 Oct, 2012 [facility] [address] [id number] [address] [place] [address], [place] [id number] 14 Oct, 2012 [facility] [address] [id number] [address] [place] [address], [place] [id number] 11 Oct, 2012 [facility] [address] [id number] [address] [place] [address], [place] [id number] 06 Oct, 2012 [facility] [address] [id number] [address] [place] [address], [place] [id number] 28 Sep, 2012 [facility] [address] [id number] [address] [place] [address], [place] [id number] Sep, [facility] [address] [id number] [address] [place] [address], [place] [id number] 18 Sep, 2012 [facility] [address] [id number] [address] [place] [address], [place] [id number] Sep, [facility] [address] [id number] [address] [place] [address], [place] [id number] Sep, [facility] [address] [id number] [address] [place] [address], [place] [id number] Aug, [facility] [address] [id number] [address] [place] [address], [place] [phone] Aug, [facility] [address] [id number] [address] [place] [address], [place] [id number] Aug, [facility] [address] [facility] [id number] [address] [place] [id number] Aug, [facility] [address] [facility] [id number] [address] [place] [id number] Aug, [facility] [address] [facility] [id number] [address] [place] [id number] Aug, [facility] [address] [facility] [id number] [address] [place] [id number] May, [facility] [address] [facility] [id number] [address] [place] [phone] May, IMMUNIZATIONS No Known Immunizations SOCIAL HISTORY [...] liver failure Hospitalization History hallucinations Hospitalization History [facility]- Hep A 2019
--- OUTSIDE RECORDS SUMMARY | 2020-04-04 03:12 | XMS REPORT ---
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 9 Active [id number] ALLERGIES No Information ENCOUNTERS Encounter Location Date Diagnosis [facility] [id number] [place] [phone] Apr, [facility] [address] [place] [id number] [address] [place] [phone] Feb, [facility] [id number] [place] [phone] Feb, [facility] [address] [id number] [address] [place] [phone] Jan, Type 1 diabetes mellitus wit hout complication E10.9 ; Schizoaffective disorder, depressive type F25.1 and Mixed hyperlipidemia E78.2 [facility] [address] [facility] [id number] [address] [place] [phone] Jan, [facility] [address] [id number] [address] [place] [phone] Jan, Hordeolum externum of left u pper eyelid H00.014 [facility] [address] [id number] [address] [place] [phone] Jan, [facility] [address] [id number] [address] [place] [phone] Jan, 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 and Worried well Z71.1 [facility] [address] [id number] [address] [place] [phone] Oct, [facility] [address] [id number] [address] [place] [phone] Jun, [facility] [address] [id number] [address] [place] [phone] Jun, [facility] [address] [id number] [address] [place] [phone] Jun, [facility] [address] [facility] [id number] [address] [place] [phone] May, Type 1 diabetes mellitus wit hout complication E10.9 [facility] [address] [facility] [id number] [address] [place] [phone] May, Type 1 diabetes mellitus wit hout complication E10.9 ; Encounter for immunization Z23 and Mood disorder F39 [facility] [address] [facility] [id number] [address] [place] [phone] December, [facility] [address] [facility] [id number] [address] [place] [phone] Nov, [facility] [address] [facility] [id number] [address] [place] [phone] Nov, Uncontrolled type 1 diabetes mellitus without complication E10.9 [facility] [address] [facility] [id number] [address] [place] [phone] 13 Nov, 2016 Impingement syndrome, should er, right M75.41 and Adhesive capsulitis of right shoulder M75.01 [facility] [address] [facility] [id number] [address] [place] [phone] 03 Nov, 2016 Uncontrolled type 1 diabetes mellitus without complication E10.9 [facility] [address] [facility] [id number] [address] [place] [phone] Oct, Uncontrolled type 1 diabetes mellitus without complication E10.9 ; Other chronic pain G89.29 ; Pain in right shoulder M25.511 and Schizoaffective disorder, depressive type F25.1 [facility] [address] [id number] [address] [place] [phone] May, Mood disorder F39 and Contro lled diabetes mellitus type 1 without complications E10.9 [facility] [address] [id number] [address] [place] [phone] May, [facility] [address] [id number] [address] [place] [phone] May, [facility] [address] [id number] [address] [place] [phone] Apr, Mood disorder F39 ; 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 and Type 1 diabetes mellitus with hyperglycemia E10.65 [facility] [address] [id number] [address] [place] [phone] Apr, Mood disorder F39 [facility] [address] [id number] [address] [place] [phone] Mar, [facility] [address] [id number] [address] [place] [phone] Feb, [facility] [address] [id number] [address] [place] [phone] Jan, [facility] [address] [id number] [address] [place] [phone] Jan, [facility] [address] [id number] [address] [place] [phone] Jan, [facility] [address] [id number] [address] [place] [phone] December, [facility] [address] [id number] [address] [place] [phone] December, 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 and Controlled type 1 diabetes mellitus with diabetic neuropathy, with long-term current use of insulin E10.40 [facility] [address] [facility] [id number] [address] [place] [phone] December, Schizo-affective schizophren ia F25.0 [facility] [address] [facility] [id number] [address] [place] [phone] Nov, [facility] [address] [id number] [address] [place] [phone] Nov, Anxiety disorder, unspecifie d F41.9 and Schizo-affective schizophrenia F25.0 [facility] [address] [facility] [id number] [address] [place] [phone] Nov, Schizo-affective schizophren ia F25.0 [facility] [address] [facility] [id number] [address] [place] [phone] Oct, [facility] [address] [id number] [address] [place] [phone] Sep, [facility] [address] [facility] [id number] [address] [place] [phone] Sep, [facility] [address] [id number] [address] [place] [phone] Sep, [facility] [address] [id number] [address] [place] [phone] Aug, [facility] [address] [facility] [id number] [address] [place] [phone] Aug, [facility] [address] [id number] [address] [place] [phone] Jul, [facility] [address] [id number] [address] [place] [phone] Jul, Diabetes type 1, controlled E10.9 [facility] [address] [id number] [address] [place] [phone] Jun, Diabetes mellitus without me ntion of complication, type II or unspecified type, uncontrolled 250.02 [place] [address] [phone] Jun, Diabetes type 1, controlled E10.9 [place] [address] [place] [phone] May, Diabetes mellitus without me ntion of complication, type II or unspecified type, uncontrolled 250.02 [place] [address] [address] May, Anxiety 300.00 [place] [address] [address] May, Diabetes type 1, controlled E10.9 ; Schizo-affective schizophrenia F25.0 ; Mood disorder F39 and Bipolar 1 disorder F31.9 [place] [address] [address] May, [place] [address] [address] May, Anxiety F41.9 and Depression F32.9 [place] [address] [address] Apr, Diabetes mellitus without me ntion of complication, type II or unspecified type, uncontrolled 250.02 [place] [address] [id number] Apr, Anxiety 300.00 and Diabetes mellitus without mention of complication, type II or unspecified type, uncontrolled 250.02 [place] [address] [address] Apr, [place] [address] [address] Apr, Anxiety 300.00 and Depressio n [address] [place] [address] [address] Apr, Major depression, recurrent 296.30 ; Anxiety, generalized 300.02 and No condition on [place] II V71.09 [facility] [address] [id number] [address] [place] [phone] Apr, [facility] [address] [id number] [address] [place] [phone] Mar, Diabetes mellitus without me ntion of complication, type II or unspecified type, uncontrolled 250.02 and Anxiety 300.00 [facility] [address] [id number] [address] [place] [phone] Mar, [facility] [address] [id number] [address] [place] [phone] Feb, [facility] [address] [id number] [address] [place] [phone] Feb, [facility] [address] [facility] [id number] [address] [place] [phone] Feb, [facility] [address] [facility] [id number] [address] [place] [phone] Jan, [facility] [address] [id number] [address] [place] [phone] Jan, [facility] [address] [facility] [id number] [address] [place] [phone] Jan, [facility] [address] [facility] [id number] [address] [place] [phone] Jan, [facility] [address] [facility] [id number] [address] [place] [phone] December, [facility] [address] [id number] [address] [place] [address] [id number] December, Dental examination V72.2 [facility] [address] [facility] [id number] [address] [place] [phone] December, Tooth pain 525.9 [facility] [address] [facility] [id number] [address] [place] [phone] December, [facility] [address] [id number] [address] [place] [address], [place] [address] 14 Nov, 2014 [facility] [address] [id number] [address] [place] [address], [place] [address] 13 Nov, 2014 [facility] [address] [id number] [address] [place] [address], [place] [address] Oct, [facility] [address] [id number] [address] [place] [address], [place] [address] Oct, [facility] [address] [id number] [address] [place] [address], [place] [address] Sep, [facility] [address] [id number] [address] [place] [address], [place] [address] Sep, [facility] [address] [id number] [address] [place] [address], [place] [address] Sep, [facility] [address] [id number] [address] [place] [address], [place] [address] Sep, [facility] [address] [id number] [address] [place] [address], [place] [address] Aug, [facility] [address] [id number] [address] [place] [address], [place] [address] Aug, [facility] [address] [id number] [address] [place] [address], [place] [address] Aug, [facility] [address] [id number] [address] [place] [address], [place] [address] Aug, [facility] [address] [id number] [address] [place] [address], [place] [address] Jul, [facility] [address] [id number] [address] [place] [address], [place] [address] Jul, [facility] [address] [id number] [address] [place] [address], [place] [address] Jun, [facility] [address] [id number] [address] [place] [address], [place] [address] Jun, [facility] [address] [id number] [address] [place] [address], [place] [address] May, [facility] [address] [id number] [address] [place] [address], [place] [address] May, [facility] [address] [id number] [address] [place] [address], [place] [address] May, [facility] [address] [id number] [address] [place] [address], [place] [address] May, [facility] [address] [id number] [address] [place] [address], [place] [address] May, [facility] [address] [id number] [address] [place] [address], [place] [address] May, [facility] [address] [id number] [address] [place] [address], [place] [address] Apr, [facility] [address] [id number] [address] [place] [address], [place] [address] Apr, [facility] [address] [id number] [address] [place] [address], [place] [address] 17 Apr, 2014 [facility] [address] [id number] [address] [place] [address], [place] [address] 17 Apr, 2014 [facility] [address] [id number] [address] [place] [address], [place] [address] 08 Apr, 2014 [facility] [address] [id number] [address] [place] [address], [place] [address] 08 Apr, 2014 [facility] [address] [id number] [address] [place] [address], [place] [address] Mar, [facility] [address] [id number] [address] [place] [address], [place] [address] Mar, [facility] [address] [id number] [address] [place] [address], [place] [address] Mar, [facility] [address] [id number] [address] [place] [address], [place] [address] Mar, [facility] [address] [id number] [address] [place] [address], [place] [address] Feb, [facility] [address] [id number] [address] [place] [address], [place] [address] Feb, [facility] [address] [id number] [address] [place] [address], [place] [address] Feb, [facility] [address] [id number] [address] [place] [address], [place] [address] Feb, [facility] [address] [id number] [address] [place] [address], [place] [address] Jan, [facility] [address] [id number] [address] [place] [address], [place] [address] Jan, [facility] [address] [id number] [address] [place] [address], [place] [address] Jan, [facility] [address] [id number] [address] [place] [address], [place] [address] Jan, [facility] [address] [id number] [address] [place] [address], [place] [address] Jan, [facility] [address] [id number] [address] [place] [address], [place] [address] Jan, [facility] [address] [id number] [address] [place] [address], [place] [address] Jan, [facility] [address] [id number] [address] [place] [address], [place] [address] Jan, [facility] [address] [id number] [address] [place] [address], [place] [address] Jan, [facility] [address] [id number] [address] [place] [address], [place] [address] Jan, [facility] [address] [id number] [address] [place] [address], [place] [address] December, [facility] [address] [id number] [address] [place] [address], [place] [address] December, [facility] [address] [id number] [address] [place] [address], [place] [address] December, [facility] [address] [id number] [address] [place] [address], [place] [address] December, [facility] [address] [id number] [address] [place] [address], [place] [address] December, [facility] [address] [id number] [address] [place] [address], [place] [address] Nov, [facility] [address] [id number] [address] [place] [address], [place] [address] Nov, [facility] [address] [id number] [address] [place] [address], [place] [address] Nov, [facility] [address] [id number] [address] [place] [address], [place] [address] Oct, [facility] [address] [id number] [address] [place] [address], [place] [address] Oct, [facility] [address] [id number] [address] [place] [address], [place] [address] Oct, [facility] [address] [id number] [address] [place] [address], [place] [address] Oct, [facility] [address] [id number] [address] [place] [address], [place] [address] Oct, [facility] [address] [id number] [address] [place] [address], [place] [address] Oct, [facility] [address] [id number] [address] [place] [address], [place] [address] Oct, [facility] [address] [id number] [address] [place] [address], [place] [address] Oct, [facility] [address] [id number] [address] [place] [address] Oct, [facility] [address] [id number] [address] [place] [address], [place] [address] Sep, [facility] [address] [id number] [address] [place] [address] Sep, [facility] [address] [id number] [address] [place] [address], [place] [address] Aug, [facility] [address] [id number] [address] [place] [address], [place] [address] Aug, [facility] [address] [id number] [address] [place] [address], [place] [address] Aug, [facility] [address] [id number] [address] [place] [address], [place] [address] Aug, [facility] [address] [id number] [address] [place] [phone] Jul, [facility] [address] [id number] [address] [place] [id number] Jul, [facility] [address] [id number] [address] [place] [phone] Jul, [facility] [address] [id number] [address] [place] [phone] Jul, [facility] [address] [id number] [address] [place] [phone] Jun, [facility] [address] [id number] [address] [place] [phone] Jun, [facility] [address] [id number] [address] [place] [id number] Jun, [facility] [address] [id number] [address] [place] [phone] Jun, [facility] [address] [id number] [address] [place] [address], [place] [address] May, [facility] [address] [id number] [address] [place] [address], [place] [address] May, [facility] [address] [id number] [address] [place] [address], [place] [address] May, [facility] [address] [id number] [address] [place] [address], [place] [address] 08 May, 2013 [facility] [address] [id number] [address] [place] [address], [place] [address] May, [facility] [address] [id number] [address] [place] [address], [place] [address] May, [facility] [address] [id number] [address] [place] [address], [place] [address] Apr, [facility] [address] [id number] [address] [place] [address], [place] [address] Mar, [facility] [address] [id number] [address] [place] [address], [place] [address] Mar, [facility] [address] [id number] [address] [place] [address], [place] [address] Mar, [facility] [address] [id number] [address] [place] [address], [place] [address] Feb, [facility] [address] [id number] [address] [place] [address], [place] [address] Feb, [facility] [address] [id number] [address] [place] [address], [place] [address] Feb, [facility] [address] [id number] [address] [place] [address], [place] [address] Jan, [facility] [address] [id number] [address] [place] [address], [place] [address] Jan, [facility] [address] [id number] [address] [place] [address], [place] [address] December, [facility] [address] [id number] [address] [place] [address], [place] [address] December, [facility] [address] [id number] [address] [place] [address], [place] [address] December, [facility] [address] [id number] [address] [place] [address], [place] [address] 29 Nov, 2012 [facility] [address] [id number] [address] [place] [address], [place] [address] 24 Nov, 2012 [facility] [address] [id number] [address] [place] [address], [place] [address] Nov, [facility] [address] [id number] [address] [place] [address], [place] [address] 2012 [facility] [address] [id number] [address] [place] [address], [place] [address] 15 Nov, 2012 [facility] [address] [id number] [address] [place] [address], [place] [address] Nov, [facility] [address] [id number] [address] [place] [address], [place] [address] Oct, [facility] [address] [id number] [address] [place] [address], [place] [address] 14 Oct, 2012 [facility] [address] [id number] [address] [place] [address], [place] [address] Oct, [facility] [address] [id number] [address] [place] [address], [place] [address] Oct, [facility] [address] [id number] [address] [place] [address], [place] [address] 28 Sep, 2012 [facility] [address] [id number] [address] [place] [address], [place] [address] Sep, [facility] [address] [id number] [address] [place] [address], [place] [address] 18 Sep, 2012 [facility] [address] [id number] [address] [place] [address], [place] [address] Sep, [facility] [address] [id number] [address] [place] [address] Sep, [facility] [address] [id number] [address] [place] [phone] Aug, [facility] [address] [id number] [address] [place] [phone] Aug, [facility] [address] [id number] [address] [place] [phone] Aug, [facility] [address] [id number] [address] [place] [phone] Aug, [facility] [address] [id number] [address] [place] [phone] Aug, [facility] [address] [id number] [address] [place] [phone] Aug, [facility] [address] [id number] [address] [place] [phone] May, [facility] [address] [id number] [address] [place] [phone] May, IMMUNIZATIONS No Known Immunizations SOCIAL HISTORY [...] liver failure Hospitalization History hallucinations Hospitalization History [facility]- Hep A 2019
--- OUTSIDE RECORDS SUMMARY | 2020-04-04 03:12 | XMS REPORT ---
Author Author Darien VILLALOBOS Organization [facility] Address [address] [place] [address] Care Team Providers Care Senior Net C Developer Name Role Phone CHRISTOPHER VILLALOBOS Unavailable PROBLEMS Type Condition ICD9-CM Code VZP32-GM Code Onset Dates Condition S tatus SNOMED Code Problem Type 1 diabetes mellitus without complication E10. 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 Act sukhi 928469540 Problem Mood disorder F39 Active 694113 05 Problem Other chronic pain G89.29 Active 8 2784289 Problem Schizoaffective disorder, depressive type F25.1 Active 91295260 ALLERGIES No Information ENCOUNTERS Encounter Location Date Diagnosis [facility] [id number] [place] [address] Feb, [facility] [address] [place] [id number] [address] [place] [address] Jan, [facility] [address] [place] [id number] [address] [place] [address] Jan, Hordeolum externum of left u pper eyelid H00.014 [facility] [address] [place] [id number] [address] [place] [address] Jan, [facility] [address] [place] [id number] [address] [place] [address] Jan, 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 and Worried well Z71.1 [facility] [address] [place] [id number] [address] [place] [address] Oct, [facility] [address] [facility] [id number] [address] [place] [address] Jun, [facility] [address] [place] [id number] [address] [place] [address] Jun, [facility] [address] [facility] [id number] [address] [place] [address] Jun, [facility] [address] [facility] [id number] [address] [place] [address] May, Type 1 diabetes mellitus wit hout complication E10.9 [place] [address] [facility] [id number] [address] [place] [address] May, Type 1 diabetes mellitus wit hout complication E10.9 ; Encounter for immunization Z23 and Mood disorder F39 [place] [address] [facility] [id number] [address] [place] [address] December, [place] [address] [place] [id number] [address] [place] [address] Nov, [place] [address] [place] [id number] [address] [place] [address] Nov, Uncontrolled type 1 diabetes mellitus without complication E10.9 [place] [address] [place] [id number] [address] [place] [address] Nov, Impingement syndrome, should er, right M75.41 and Adhesive capsulitis of right shoulder M75.01 [place] [address] [place] [id number] [address] [place] [address] Nov, Uncontrolled type 1 diabetes mellitus without complication E10.9 [place] [address] [place] [id number] [address] [place] [address] Oct, Uncontrolled type 1 diabetes mellitus without complication E10.9 ; Other chronic pain G89.29 ; Pain in right shoulder M25.511 and Schizoaffective disorder, depressive type F25.1 [place] [address] [facility] [id number] [address] [place] [address] May, Mood disorder F39 and Contro lled diabetes mellitus type 1 without complications E10.9 [place] [address] [place] [id number] [address] [place] [address] May, [place] [address] [id number] [address] [place] [address] May, [facility] [address] [id number] [address] [place] [address] Apr, Mood disorder F39 ; 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 and Type 1 diabetes mellitus with hyperglycemia E10.65 [facility] [address] [id number] [address] [place] [address] Apr, Mood disorder F39 [facility] [address] [id number] [address] [place] [address] Mar, [facility] [address] [id number] [address] [place] [address] Feb, [facility] [address] [id number] [address] [place] [address] Jan, [facility] [address] [id number] [address] [place] [address] Jan, [facility] [address] [id number] [address] [place] [address] Jan, [facility] [address] [id number] [address] [place] [address] December, [facility] [address] [facility] [id number] [address] [place] [address] December, 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 and Controlled type 1 diabetes mellitus with diabetic neuropathy, with long-term current use of insulin E10.40 [facility] [address] [id number] [address] [place] [address] December, Schizo-affective schizophren ia F25.0 [facility] [address] [id number] [address] [place] [address] Nov, [facility] [address] [facility] [id number] [address] [place] [address] Nov, Anxiety disorder, unspecifie d F41.9 and Schizo-affective schizophrenia F25.0 [facility] [address] [id number] [address] [place] [address] Nov, Schizo-affective schizophren ia F25.0 [facility] [address] [id number] [address] [place] [address] Oct, [facility] [address] [id number] [address] [place] [address] Sep, [facility] [address] [id number] [address] [place] [address] Sep, [facility] [address] [id number] [address] [place] [address] Sep, [facility] [address] [facility] [id number] [address] [place] [address] Aug, [facility] [address] [facility] [id number] [address] [place] [address] Aug, [facility] [address] [id number] [address] [place] [address] Jul, [facility] [address] [facility] [id number] [address] [place] [address] Jul, Diabetes type 1, controlled E10.9 [facility] [address] [facility] [id number] [address] [place] [address] Jun, Diabetes mellitus without me ntion of complication, type II or unspecified type, uncontrolled 250.02 [facility] [address] [facility] [id number] [address] [place] [address] 09 Jun, 2015 Diabetes type 1, controlled E10.9 [facility] [address] [facility] [id number] [address] [place] [address] May, Diabetes mellitus without me ntion of complication, type II or unspecified type, uncontrolled 250.02 [facility] [address] [facility] [id number] [address] [place] [address] May, Anxiety 300.00 [place] [address] [place] [id number] [address] [place] [address] May, Diabetes type 1, controlled E10.9 ; Schizo-affective schizophrenia F25.0 ; Mood disorder F39 and Bipolar 1 disorder F31.9 [place] [address] [address] May, [place] [address] [address] May, Anxiety F41.9 and Depression F32.9 [place] [address] [address] Apr, Diabetes mellitus without me ntion of complication, type II or unspecified type, uncontrolled 250.02 [place] [address] [address] Apr, Anxiety 300.00 and Diabetes mellitus without mention of complication, type II or unspecified type, uncontrolled 250.02 [place] [address] [address] Apr, [place] [address] [address] Apr, Anxiety 300.00 and Depressio n 311 [place] [address] [address] Apr, Major depression, recurrent 296.30 ; Anxiety, generalized 300.02 and No condition on [place] II V71.09 [place] [address] [address] Apr, [place] [address] [address] Mar, Diabetes mellitus without me ntion of complication, type II or unspecified type, uncontrolled 250.02 and Anxiety 300.00 [place] [address] [place] [id number] [place] [address] Mar, [facility] [address] [id number] [address] [place] [address] Feb, [facility] [address] [id number] [address] [place] [address] Feb, [facility] [address] [id number] [address] [place] [address] Feb, [facility] [address] [id number] [address] [place] [address] Jan, [facility] [place] [address] [id number] [address] [place] [address] Jan, [facility] [place] [address] [id number] [address] [place] [address] Jan, [facility] [address] [id number] [address] [place] [address] Jan, [facility] [place] [address] [id number] [address] [place] [address] December, [facility] [address] [id number] [address] [place] [id number] December, Dental examination V72.2 [facility] [address] [id number] [address] [place] [address] December, Tooth pain 525.9 [facility] [address] [id number] [address] [place] [address] December, [facility] [address] [id number] [address] [place] [address] Nov, [facility] [address] [id number] [address] [place] [address] Nov, [facility] [address] [id number] [address] [place] [address] Oct, [facility] [address] [id number] [address] [place] [address] Oct, [facility] [address] [id number] [address] [place] [address] Sep, [facility] [address] [id number] [address] [place] [address], [place] [address] Sep, [facility] [address] [id number] [address] [place] [address], [place] [address] Sep, [facility] [address] [id number] [address] [place] [address], [place] [address] Sep, [facility] [address] [id number] [address] [place] [address], [place] [address] Aug, [facility] [address] [id number] [address] [place] [address], [place] [address] Aug, [facility] [address] [id number] [address] [place] [address], [place] [address] Aug, [facility] [address] [id number] [address] [place] [address], [place] [address] Aug, [facility] [address] [id number] [address] [place] [address], [place] [address] Jul, [facility] [address] [id number] [address] [place] [address], [place] [address] Jul, [facility] [address] [id number] [address] [place] [address], [place] [address] Jun, [facility] [address] [id number] [address] [place] [address], [place] [address] Jun, [facility] [address] [id number] [address] [place] [address], [place] [address] May, [facility] [address] [id number] [address] [place] [address], [place] [address] May, [facility] [address] [id number] [address] [place] [address], [place] [address] May, [facility] [address] [id number] [address] [place] [address], [place] [address] May, [facility] [address] [id number] [address] [place] [address], [place] [address] May, [facility] [address] [id number] [address] [place] [address], [place] [address] May, [facility] [address] [id number] [address] [place] [address], [place] [address] Apr, [facility] [address] [id number] [address] [place] [address], [place] [address] Apr, [facility] [address] [id number] [address] [place] [address], [place] [address] Apr, [facility] [address] [id number] [address] [place] [address], [place] [address] Apr, [facility] [address] [id number] [address] [place] [address], [place] [address] Apr, [facility] [address] [id number] [address] [place] [address], [place] [address] Apr, [facility] [address] [id number] [address] [place] [address], [place] [address] Mar, [facility] [address] [id number] [address] [place] [address], [place] [address] Mar, [facility] [address] [id number] [address] [place] [address], [place] [address] Mar, [facility] [address] [id number] [address] [place] [address], [place] [address] Mar, [facility] [address] [id number] [address] [place] [address], [place] [address] Feb, [facility] [address] [id number] [address] [place] [address], [place] [address] Feb, [facility] [address] [id number] [address] [place] [address], [place] [address] Feb, [facility] [address] [id number] [address] [place] [address], [place] [address] Feb, [facility] [address] [id number] [facility] [place] [address] Jan, [facility] [address] [id number] [address] [place] [address], [place] [address] Jan, [facility] [address] [id number] [address] [place] [address], [place] [address] Jan, [facility] [address] [id number] [address] [place] [address], [place] [address] Jan, [facility] [address] [id number] [address] [place] [address], [place] [address] Jan, [facility] [address] [id number] [address] [place] [address], [place] [address] Jan, [facility] [address] [id number] [address] [place] [address], [place] [address] Jan, [facility] [address] [id number] [address] [place] [address], [place] [address] Jan, [facility] [address] [id number] [address] [place] [address], [place] [address] Jan, [facility] [address] [id number] [address] [place] [address], [place] [address] Jan, [facility] [address] [id number] [address] [place] [address], [place] [address] December, [facility] [address] [id number] [address] [place] [address], [place] [address] December, [facility] [address] [id number] [address] [place] [address], [place] [address] December, [facility] [address] [id number] [address] [place] [address], [place] [address] December, [facility] [address] [id number] [address] [place] [address], [place] [address] December, [facility] [address] [id number] [facility] [place] [address] 24 Nov, 2013 [facility] [address] [id number] [address] [place] [address], [place] [address] Nov, [facility] [address] [id number] [facility] [place] [address] Nov, [facility] [address] [id number] [address] [place] [address], [place] [address] Oct, [facility] [address] [id number] [address] [place] [address], [place] [address] Oct, [facility] [address] [id number] [address] [place] [address], [place] [address] Oct, [facility] [address] [id number] [address] [place] [address], [place] [address] Oct, [facility] [address] [id number] [address] [place] [address], [place] [address] Oct, [facility] [address] [id number] [address] [place] [address], [place] [address] Oct, [facility] [address] [id number] [address] [place] [address], [place] [address] Oct, [facility] [address] [id number] [address] [place] [address], [place] [address] Oct, [facility] [address] [id number] [address] [place] [address], [place] [address] Oct, [facility] [address] [id number] [address] [place] [address], [place] [address] Sep, [facility] [address] [id number] [address] [place] [address], [place] [address] Sep, [facility] [address] [id number] [address] [place] [address], [place] [address] Aug, [facility] [address] [id number] [address] [place] [address], [place] [address] Aug, [facility] [address] [id number] [address] [place] [address], [place] [address] Aug, [facility] [address] [id number] [address] [place] [address], [place] [address] Aug, [facility] [address] [id number] [address] [place] [address], [place] [address] Jul, [facility] [address] [id number] [address] [place] [address], [place] [address] Jul, [facility] [address] [id number] [address] [place] [address], [place] [address] Jul, [facility] [address] [id number] [address] [place] [address], [place] [address] Jul, [facility] [address] [id number] [address] [place] [address], [place] [address] Jun, [facility] [address] [id number] [address] [place] [address], [place] [address] Jun, [facility] [address] [id number] [address] [place] [address], [place] [address] Jun, [facility] [address] [id number] [address] [place] [address], [place] [address] Jun, [facility] [address] [id number] [address] [place] [address], [place] [address] May, [facility] [address] [id number] [address] [place] [address] May, [facility] [address] [id number] [address] [place] [address], [place] [address] May, [facility] [address] [id number] [address] [place] [address], [place] [address] 08 May, 2013 [facility] [address] [id number] [address] [place] [address], [place] [address] May, [facility] [address] [id number] [address] [place] [address] [place] [address] May, [facility] [address] [id number] [address] [place] [address], [place] [address] Apr, [facility] [address] [id number] [address] [place] [address], [place] [address] Mar, [facility] [address] [id number] [address] [place] [address], [place] [address] Mar, [facility] [address] [id number] [address] [place] [address], [place] [address] Mar, [facility] [address] [id number] [address] [place] [address], [place] [address] Feb, [facility] [address] [id number] [address] [place] [address], [place] [address] Feb, [facility] [address] [id number] [address] [place] [address], [place] [address] Feb, [facility] [address] [id number] [address] [place] [address], [place] [address] Jan, [facility] [address] [id number] [address] [place] [address], [place] [address] Jan, [facility] [address] [id number] [address] [place] [address], [place] [address] December, [facility] [address] [id number] [address] [place] [address], [place] [address] December, [facility] [address] [id number] [address] [place] [address], [place] [address] December, [facility] [address] [id number] [address] [place] [address], [place] [address] Nov, [facility] [address] [id number] [address] [place] [address], [place] [address] Nov, [facility] [address] [id number] [address] [place] [address], [place] [address] Nov, [facility] [address] [id number] [address] [place] [address], [place] [address] 2012 [facility] [address] [id number] [address] [place] [address], [place] [address] 15 Nov, 2012 [facility] [address] [id number] [address] [place] [address], [place] [address] 05 Nov, 2012 [facility] [address] [id number] [address] [place] [address], [place] [address] 25 Oct, 2012 [facility] [address] [id number] [address] [place] [address], [place] [address] 14 Oct, 2012 [facility] [address] [id number] [address] [place] [address], [place] [address] Oct, [facility] [address] [id number] [address] [place] [address], [place] [address] 06 Oct, 2012 [facility] [address] [id number] [address] [place] [address], [place] [address] 28 Sep, 2012 [facility] [address] [id number] [address] [place] [address], [place] [address] Sep, [facility] [address] [id number] [address] [place] [address], [place] [address] Sep, [facility] [address] [id number] [address] [place] [address], [place] [address] Sep, [facility] [address] [id number] [address] [place] [address], [place] [address] Sep, [facility] [address] [id number] [address] [place] [address], [place] [address] Aug, [facility] [address] [id number] [address] [place] [address], [place] [address] Aug, [facility] [address] [id number] [address] [place] [address], [place] [address] Aug, [facility] [address] [id number] [address] [place] [phone] Aug, [facility] [address] [facility] [id number] [address] [place] [phone] Aug, [facility] [address] [facility] [id number] [address] [place] [address] Aug, [facility] [address] [facility] [id number] [address] [place] [address] May, [facility] [address] [facility] [id number] [address] [place] [id number] May, IMMUNIZATIONS No Known Immunizations SOCIAL HISTORY [...]
--- OUTSIDE RECORDS SUMMARY | 2020-04-04 03:12 | XMS REPORT ---
Author Author Darien VILLALOBOS Organization [facility] Address [address] [place] [address] Care Team Providers Care Credit Operations Processor Name Role Phone CHRISTOPHER VILLALOBOS Unavailable PROBLEMS Type Condition ICD9-CM Code QCC75-NV Code Onset Dates Condition S tatus SNOMED Code Problem Diabetes type 1, controlled E10.9 Ac tive 34636058 Problem Type 2 diabetes mellitus with hyperglycemia E11.65 Active [id number] Problem Type 1 diabetes mellitus with hyperglycemia E10.65 Active [id number] Problem Uncontrolled type 1 diabetes mellitus without complication E10.9 Active 167855823 Problem Type 1 diabetes mellitus without complication E10. 9 Active 347481557 Problem Type 1 diabetes mellitus with diabetic polyneuropathy E10.42 Active 47632290 Problem Mood disorder F39 Active 907237 05 Problem Other chronic pain G89.29 Active 8 9567628 Problem Schizoaffective disorder, depressive type F25.1 Active [id number] ALLERGIES No Information ENCOUNTERS Encounter Location Date Diagnosis [facility] [address] [facility] [id number] [address] [place] [address] Jan, [facility] [address] [facility] [id number] [address] [place] [address] Jan, [facility] [address] [id number] [address] [place] [address] Oct, [facility] [address] [id number] [address] [place] [address] Jun, [facility] [address] [facility] [id number] [address] [place] [address] Jun, [facility] [address] [facility] [id number] [address] [place] [address] Jun, [facility] [address] [facility] [id number] [address] [place] [address] May, Type 1 diabetes mellitus wit hout complication E10.9 [place] [address] [id number] [address] [place] [address] May, Type 1 diabetes mellitus wit hout complication E10.9 ; Encounter for immunization Z23 and Mood disorder F39 [place] [address] [facility] [id number] [address] [place] [address] December, [place] [address] [id number] [address] [place] [address] Nov, [place] [address] [facility] [id number] [address] [place] [address] Nov, Uncontrolled type 1 diabetes mellitus without complication E10.9 [place] [address] [facility] [id number] [address] [place] [address] Nov, Impingement syndrome, should er, right M75.41 and Adhesive capsulitis of right shoulder M75.01 [place] [address] [facility] [id number] [address] [place] [address] Nov, Uncontrolled type 1 diabetes mellitus without complication E10.9 [place] [address] [place] [id number] [address] [place] [address] Oct, Uncontrolled type 1 diabetes mellitus without complication E10.9 ; Other chronic pain G89.29 ; Pain in right shoulder M25.511 and Schizoaffective disorder, depressive type F25.1 [place] [address] [facility] [id number] [address] [place] [address] May, Mood disorder F39 and Contro lled diabetes mellitus type 1 without complications E10.9 [place] [address] [facility] [id number] [address] [place] [address] May, [place] [address] [place] [id number] [address] [place] [address] May, [place] [address] [facility] [id number] [address] [place] [address] Apr, Mood disorder F39 ; 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 and Type 1 diabetes mellitus with hyperglycemia E10.65 [facility] [address] [id number] [address] [place] [address] Apr, Mood disorder F39 [facility] [address] [id number] [address] [place] [address] Mar, [facility] [address] [id number] [address] [place] [address] Feb, [facility] [address] [id number] [address] [place] [address] Jan, [facility] [address] [id number] [address] [place] [address] Jan, [facility] [address] [id number] [address] [place] [address] Jan, [facility] [address] [id number] [address] [place] [address] December, [facility] [address] [id number] [address] [place] [address] December, 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 and Controlled type 1 diabetes mellitus with diabetic neuropathy, with long-term current use of insulin E10.40 [facility] [address] [id number] [address] [place] [address] December, Schizo-affective schizophren ia F25.0 [facility] [address] [id number] [address] [place] [address] Nov, [facility] [address] [id number] [address] [place] [address] Nov, Anxiety disorder, unspecifie d F41.9 and Schizo-affective schizophrenia F25.0 [facility] [address] [id number] [address] [place] [address] Nov, Schizo-affective schizophren ia F25.0 [facility] [address] [id number] [address] [place] [address] Oct, [facility] [address] [id number] [address] [place] [address] Sep, [facility] [address] [facility] [id number] [address] [place] [address] Sep, [facility] [address] [facility] [id number] [address] [place] [address] Sep, [facility] [address] [facility] [id number] [address] [place] [address] Aug, [facility] [address] [facility] [id number] [address] [place] [address] Aug, [facility] [address] [facility] [id number] [address] [place] [address] Jul, [facility] [address] [place] [id number] [address] [place] [address] Jul, Diabetes type 1, controlled E10.9 [facility] [address] [facility] [id number] [address] [place] [address] Jun, Diabetes mellitus without me ntion of complication, type II or unspecified type, uncontrolled 250.02 [facility] [address] [facility] [id number] [address] [place] [address] 09 Jun, 2015 Diabetes type 1, controlled E10.9 [facility] [address] [facility] [id number] [address] [place] [address] May, Diabetes mellitus without me ntion of complication, type II or unspecified type, uncontrolled 250.02 [facility] [address] [facility] [id number] [address] [place] [address] May, Anxiety 300.00 [facility] [address] [facility] [id number] [address] [place] [address] May, Diabetes type 1, controlled E10.9 ; Schizo-affective schizophrenia F25.0 ; Mood disorder F39 and Bipolar 1 disorder F31.9 [facility] [address] [place] [id number] [address] [place] [address] May, [facility] [address] [address] May, Anxiety F41.9 and Depression F32.9 [facility] [address] [id number] Apr, Diabetes mellitus without me ntion of complication, type II or unspecified type, uncontrolled 250.02 [facility] [address] [place] [id number] [place] [address] Apr, Anxiety 300.00 and Diabetes mellitus without mention of complication, type II or unspecified type, uncontrolled 250.02 [facility] [address] [address] Apr, [facility] [address] [address] Apr, Anxiety 300.00 and Depressio n 311 [facility] [address] [address] Apr, Major depression, recurrent 296.30 ; Anxiety, generalized 300.02 and No condition on [place] II V71.09 [facility] [address] [id number] Apr, [facility] [address] [id number] Mar, Diabetes mellitus without me ntion of complication, type II or unspecified type, uncontrolled 250.02 and Anxiety 300.00 [facility] [address] [address] Mar, [facility] [address] [address] Feb, [facility] [address] [address] Feb, [facility] [address] [id number] [address] [place] [address] Feb, [facility] [address] [id number] [address] [place] [address] Jan, [facility] [address] [id number] [address] [place] [address] Jan, [facility] [address] [id number] [address] [place] [address] Jan, [facility] [address] [id number] [address] [place] [address] Jan, [facility] [address] [id number] [address] [place] [address] December, [facility] [address] [id number] [address] [place] [id number] December, Dental examination V72.2 [facility] [address] [id number] [address] [place] [address] December, Tooth pain 525.9 [facility] [address] [id number] [address] [place] [address] December, [facility] [address] [id number] [address] [place] [address] Nov, [facility] [address] [id number] [address] [place] [address] Nov, [facility] [address] [id number] [address] [place] [address] Oct, [facility] [address] [id number] [address] [place] [address] Oct, [facility] [address] [id number] [address] [place] [address] Sep, [facility] [address] [id number] [address] [place] [address] Sep, [facility] [address] [id number] [address] [place] [address], [place] [address] Sep, [facility] [address] [id number] [address] [place] [address], [place] [address] Sep, [facility] [address] [id number] [address] [place] [address], [place] [address] Aug, [facility] [address] [id number] [address] [place] [address], [place] [address] Aug, [facility] [address] [id number] [address] [place] [address], [place] [address] Aug, [facility] [address] [id number] [address] [place] [address], [place] [address] Aug, [facility] [address] [id number] [address] [place] [address], [place] [address] Jul, [facility] [address] [id number] [address] [place] [address], [place] [address] Jul, [facility] [address] [id number] [address] [place] [address], [place] [address] Jun, [facility] [address] [id number] [address] [place] [address], [place] [address] Jun, [facility] [address] [id number] [address] [place] [address], [place] [address] May, [facility] [address] [id number] [address] [place] [address], [place] [address] May, [facility] [address] [id number] [address] [place] [address], [place] [address] May, [facility] [address] [id number] [address] [place] [address], [place] [address] May, [facility] [address] [id number] [address] [place] [address], [place] [address] May, [facility] [address] [id number] [address] [place] [address], [place] [address] May, [facility] [address] [id number] [address] [place] [address], [place] [address] Apr, [facility] [address] [id number] [address] [place] [address], [place] [address] Apr, [facility] [address] [id number] [address] [place] [address], [place] [address] Apr, [facility] [address] [id number] [address] [place] [address], [place] [address] Apr, [facility] [address] [id number] [address] [place] [address], [place] [address] Apr, [facility] [address] [id number] [address] [place] [address], [place] [address] Apr, [facility] [address] [id number] [address] [place] [address], [place] [address] Mar, [facility] [address] [id number] [address] [place] [address], [place] [address] Mar, [facility] [address] [id number] [address] [place] [address], [place] [address] Mar, [facility] [address] [id number] [address] [place] [address], [place] [address] Mar, [facility] [address] [id number] [address] [place] [address], [place] [address] Feb, [facility] [address] [id number] [address] [place] [address], [place] [address] Feb, [facility] [address] [id number] [address] [place] [address], [place] [address] Feb, [facility] [address] [id number] [address] [place] [address], [place] [address] Feb, [facility] [address] [id number] [address] [place] [address], [place] [address] Jan, [facility] [address] [id number] [address] [place] [address], [place] [address] Jan, [facility] [address] [id number] [facility] [address] Jan, [facility] [address] [id number] [address] [place] [address], [place] [address] Jan, [facility] [address] [id number] [address] [place] [address], [place] [address] Jan, [facility] [address] [id number] [address] [place] [address], [place] [address] Jan, [facility] [address] [id number] [address] [place] [address], [place] [address] Jan, [facility] [address] [id number] [address] [place] [address], [place] [address] Jan, [facility] [address] [id number] [address] [place] [address], [place] [address] Jan, [facility] [address] [id number] [address] [place] [address], [place] [address] Jan, [facility] [address] [id number] [address] [place] [address], [place] [address] December, [facility] [address] [id number] [address] [place] [address], [place] [address] December, [facility] [address] [id number] [address] [place] [address], [place] [address] December, [facility] [address] [id number] [address] [place] [address], [place] [address] December, [facility] [address] [id number] [address] [place] [address], [place] [address] December, [facility] [address] [id number] [address] [place] [address], [place] [address] Nov, [facility] [address] [id number] [address] [place] [address], [place] [address] Nov, [facility] [address] [id number] [facility] [address] Nov, [facility] [address] [id number] [address] [place] [address], [place] [address] Oct, [facility] [address] [id number] [facility] [address] Oct, [facility] [address] [id number] [address] [place] [address], [place] [address] Oct, [facility] [address] [id number] [address] [place] [address], [place] [address] Oct, [facility] [address] [id number] [address] [place] [address], [place] [address] Oct, [facility] [address] [id number] [address] [place] [address], [place] [address] Oct, [facility] [address] [id number] [address] [place] [address], [place] [address] Oct, [facility] [address] [id number] [address] [place] [address], [place] [address] Oct, [facility] [address] [id number] [address] [place] [address], [place] [address] Oct, [facility] [address] [id number] [address] [place] [address], [place] [address] Sep, [facility] [address] [id number] [address] [place] [address], [place] [address] Sep, [facility] [address] [id number] [address] [place] [address], [place] [address] Aug, [facility] [address] [id number] [address] [place] [address], [place] [address] Aug, [facility] [address] [id number] [address] [place] [address], [place] [address] Aug, [facility] [address] [id number] [address] [place] [address], [place] [address] Aug, [facility] [address] [id number] [address] [place] [address], [place] [address] Jul, [facility] [address] [id number] [address] [place] [address], [place] [address] Jul, [facility] [address] [id number] [address] [place] [address], [place] [address] Jul, [facility] [address] [id number] [address] [place] [address], [place] [address] Jul, [facility] [address] [id number] [address] [place] [address], [place] [address] Jun, [facility] [address] [id number] [address] [place] [address], [place] [address] Jun, [facility] [address] [id number] [address] [place] [address], [place] [address] Jun, [facility] [address] [id number] [address] [place] [address] Jun, [facility] [address] [id number] [address] [place] [address], [place] [address] May, [facility] [address] [id number] [address] [place] [address] May, [facility] [address] [id number] [address] [place] [address] May, [facility] [address] [id number] [address] [place] [address] 08 May, 2013 [facility] [address] [id number] [address] [place] [address] May, [facility] [address] [id number] [address] [place] [address] May, [facility] [address] [id number] [address] [place] [address] Apr, [facility] [address] [id number] [address] [place] [address], [place] [address] Mar, [facility] [address] [id number] [address] [place] [address], [place] [address] Mar, [facility] [address] [id number] [address] [place] [address], [place] [address] Mar, [facility] [address] [id number] [address] [place] [address], [place] [address] Feb, [facility] [address] [id number] [address] [place] [address], [place] [address] Feb, [facility] [address] [id number] [address] [place] [address], [place] [address] Feb, [facility] [address] [id number] [address] [place] [address], [place] [address] Jan, [facility] [address] [id number] [address] [place] [address], [place] [address] Jan, [facility] [address] [id number] [address] [place] [address], [place] [address] December, [facility] [address] [id number] [address] [place] [address], [place] [address] December, [facility] [address] [id number] [address] [place] [address], [place] [address] December, [facility] [address] [id number] [address] [place] [address], [place] [address] Nov, [facility] [address] [id number] [address] [place] [address], [place] [address] 24 Nov, 2012 [facility] [address] [id number] [address] [place] [address], [place] [address] Nov, [facility] [address] [id number] [address] [place] [address], [place] [address] 2012 [facility] [address] [id number] [address] [place] [address], [place] [address] 15 Nov, 2012 [facility] [address] [id number] [address] [place] [address], [place] [address] 05 Nov, 2012 [facility] [address] [id number] [address] [place] [address], [place] [address] 25 Oct, 2012 [facility] [address] [id number] [address] [place] [address], [place] [address] 14 Oct, 2012 [facility] [address] [id number] [address] [place] [address], [place] [address] 11 Oct, 2012 [facility] [address] [id number] [address] [place] [address], [place] [address] 06 Oct, 2012 [facility] [address] [id number] [address] [place] [address], [place] [address] 28 Sep, 2012 [facility] [address] [id number] [address] [place] [address], [place] [address] Sep, [facility] [address] [id number] [address] [place] [address], [place] [address] Sep, [facility] [address] [id number] [address] [place] [address], [place] [address] Sep, [facility] [address] [id number] [address] [place] [address], [place] [address] Sep, [facility] [address] [id number] [address] [place] [address], [place] [address] Aug, [facility] [address] [id number] [address] [place] [address], [place] [address] Aug, [facility] [address] [id number] [address] [place] [address], [place] [address] Aug, [facility] [address] [id number] [address] [place] [address], [place] [address] Aug, [facility] [address] [id number] [address] [place] [address], [place] [address] Aug, [facility] [address] [id number] [address] [place] [address] Aug, [facility] [address] [id number] [address] [place] [id number] May, [facility] [address] [id number] [address] [place] [id number] May, IMMUNIZATIONS No Known Immunizations SOCIAL HISTORY [...]
--- OUTSIDE RECORDS SUMMARY | 2020-04-04 03:12 | XMS REPORT ---
Author Author Darien VILLALOBOS Organization [facility] Address [address] [place] [address] Care Team Providers Care Developmental Psychologist Name Role Phone CHRISTOPHER VILLALOBOS Unavailable PROBLEMS Type Condition ICD9-CM Code NJE22-GP Code Onset Dates Condition S tatus SNOMED Code Problem Type 1 diabetes mellitus without complication E10. 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 Act sukhi [id number] Problem Mood disorder F39 Active 869538 05 Problem Other chronic pain G89.29 Active 8 3619045 Problem Schizoaffective disorder, depressive type F25.1 Active [id number] ALLERGIES No Information ENCOUNTERS Encounter Location Date Diagnosis [facility] [address] [id number] [address] [place] [id number] Feb, [facility] [address] [id number] [address] [place] [phone] Jan, [facility] [address] [id number] [address] [place] [phone] Jan, Hordeolum externum of left u pper eyelid H00.014 [facility] [address] [id number] [address] [place] [phone] Jan, [facility] [address] [id number] [address] [place] [phone] Jan, 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 and Worried well Z71.1 [facility] [address] [id number] [address] [place] [phone] Oct, [facility] [address] [facility] [id number] [address] [place] [phone] Jun, [facility] [address] [id number] [address] [place] [phone] Jun, [facility] [address] [facility] [id number] [address] [place] [phone] Jun, [facility] [address] [facility] [id number] [address] [place] [phone] May, Type 1 diabetes mellitus wit hout complication E10.9 [place] [address] [facility] [id number] [address] [place] [phone] May, Type 1 diabetes mellitus wit hout complication E10.9 ; Encounter for immunization Z23 and Mood disorder F39 [place] [address] [facility] [id number] [address] [place] [phone] December, [place] [address] [place] [id number] [address] [place] [phone] Nov, [place] [address] [place] [id number] [address] [place] [phone] Nov, Uncontrolled type 1 diabetes mellitus without complication E10.9 [place] [address] [place] [id number] [address] [place] [address] Nov, Impingement syndrome, should er, right M75.41 and Adhesive capsulitis of right shoulder M75.01 [place] [address] [place] [id number] [address] [place] [phone] Nov, Uncontrolled type 1 diabetes mellitus without complication E10.9 [place] [address] [place] [id number] [address] [place] [phone] Oct, Uncontrolled type 1 diabetes mellitus without complication E10.9 ; Other chronic pain G89.29 ; Pain in right shoulder M25.511 and Schizoaffective disorder, depressive type F25.1 [place] [address] [facility] [id number] [address] [place] [phone] May, Mood disorder F39 and Contro lled diabetes mellitus type 1 without complications E10.9 [place] [address] [place] [id number] [address] [place] [phone] May, [place] [address] [id number] [address] [place] [phone] May, [facility] [address] [id number] [address] [place] [phone] Apr, Mood disorder F39 ; 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 and Type 1 diabetes mellitus with hyperglycemia E10.65 [facility] [address] [id number] [address] [place] [phone] Apr, Mood disorder F39 [facility] [address] [id number] [address] [place] [phone] Mar, [facility] [address] [id number] [address] [place] [phone] Feb, [facility] [address] [id number] [address] [place] [phone] Jan, [facility] [address] [id number] [address] [place] [phone] Jan, [facility] [address] [id number] [address] [place] [id number] Jan, [facility] [address] [id number] [address] [place] [id number] December, [facility] [address] [facility] [id number] [address] [place] [phone] December, 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 and Controlled type 1 diabetes mellitus with diabetic neuropathy, with long-term current use of insulin E10.40 [facility] [address] [id number] [address] [place] [phone] December, Schizo-affective schizophren ia F25.0 [facility] [address] [id number] [address] [place] [phone] Nov, [facility] [address] [facility] [id number] [address] [place] [phone] Nov, Anxiety disorder, unspecifie d F41.9 and Schizo-affective schizophrenia F25.0 [facility] [address] [id number] [address] [place] [phone] Nov, Schizo-affective schizophren ia F25.0 [facility] [address] [id number] [address] [place] [phone] Oct, [facility] [address] [id number] [address] [place] [phone] Sep, [facility] [address] [id number] [address] [place] [phone] Sep, [facility] [address] [id number] [address] [place] [phone] Sep, [facility] [address] [facility] [id number] [address] [place] [id number] Aug, [facility] [address] [facility] [id number] [address] [place] [phone] Aug, [facility] [address] [id number] [address] [place] [phone] Jul, [facility] [address] [facility] [id number] [address] [place] [phone] Jul, Diabetes type 1, controlled E10.9 [facility] [address] [facility] [id number] [address] [place] [id number] Jun, Diabetes mellitus without me ntion of complication, type II or unspecified type, uncontrolled 250.02 [facility] [address] [facility] [id number] [address] [place] [phone] 09 Jun, 2015 Diabetes type 1, controlled E10.9 [facility] [address] [facility] [id number] [address] [place] [id number] May, Diabetes mellitus without me ntion of complication, type II or unspecified type, uncontrolled 250.02 [facility] [address] [facility] [id number] [address] [place] [address] May, Anxiety 300.00 [place] [address] [place] [id number] [address] [place] [address] May, Diabetes type 1, controlled E10.9 ; Schizo-affective schizophrenia F25.0 ; Mood disorder F39 and Bipolar 1 disorder F31.9 [place] [address] [address] May, [place] [address] [address] May, Anxiety F41.9 and Depression F32.9 [place] [address] [address] Apr, Diabetes mellitus without me ntion of complication, type II or unspecified type, uncontrolled 250.02 [place] [address] [address] Apr, Anxiety 300.00 and Diabetes mellitus without mention of complication, type II or unspecified type, uncontrolled 250.02 [place] [address] [id number] Apr, [place] [address] [id number] Apr, Anxiety 300.00 and Depressio n 311 [place] [address] [address] Apr, Major depression, recurrent 296.30 ; Anxiety, generalized 300.02 and No condition on [place] II V71.09 [place] [address] [address] Apr, [place] [address] [address] Mar, Diabetes mellitus without me ntion of complication, type II or unspecified type, uncontrolled 250.02 and Anxiety 300.00 [place] [address] [place] [id number] [place] [address] Mar, [facility] [address] [id number] [address] [place] [phone] Feb, [facility] [address] [id number] [address] [place] [phone] Feb, [facility] [address] [id number] [address] [place] [phone] Feb, [facility] [address] [id number] [address] [place] [phone] Jan, [facility] [address] [id number] [address] [place] [phone] Jan, [facility] [address] [id number] [address] [place] [phone] Jan, [facility] [address] [id number] [address] [place] [phone] Jan, [facility] [address] [id number] [address] [place] [address] December, [facility] [address] [id number] [address] [place] [id number] December, Dental examination V72.2 [facility] [address] [id number] [address] [place] [phone] December, Tooth pain 525.9 [facility] [address] [id number] [address] [place] [phone] December, [facility] [address] [id number] [address] [place] [phone] Nov, [facility] [address] [id number] [address] [place] [phone] Nov, [facility] [address] [id number] [address] [place] [phone] Oct, [facility] [address] [id number] [address] [place] [phone] Oct, [facility] [address] [id number] [address] [place] [phone] Sep, [facility] [address] [id number] [address] [place] [address], [place] [address] Sep, [facility] [address] [id number] [address] [place] [address], [place] [address] Sep, [facility] [address] [id number] [address] [place] [address], [place] [address] Sep, [facility] [address] [id number] [address] [place] [address], [place] [address] Aug, [facility] [address] [id number] [address] [place] [address], [place] [address] Aug, [facility] [address] [id number] [address] [place] [address], [place] [address] Aug, [facility] [address] [id number] [address] [place] [address], [place] [address] Aug, [facility] [address] [id number] [address] [place] [address], [place] [address] Jul, [facility] [address] [id number] [address] [place] [address], [place] [address] Jul, [facility] [address] [id number] [address] [place] [address], [place] [address] Jun, [facility] [address] [id number] [address] [place] [address], [place] [address] Jun, [facility] [address] [id number] [address] [place] [address], [place] [address] May, [facility] [address] [id number] [address] [place] [address], [place] [address] May, [facility] [address] [id number] [address] [place] [address], [place] [address] May, [facility] [address] [id number] [address] [place] [address], [place] [address] May, [facility] [address] [id number] [address] [place] [address], [place] [address] May, [facility] [address] [id number] [address] [place] [address], [place] [address] May, [facility] [address] [id number] [address] [place] [address], [place] [address] Apr, [facility] [address] [id number] [address] [place] [address], [place] [address] Apr, [facility] [address] [id number] [address] [place] [address], [place] [address] Apr, [facility] [address] [id number] [address] [place] [address], [place] [address] Apr, [facility] [address] [id number] [address] [place] [address], [place] [address] Apr, [facility] [address] [id number] [address] [place] [address], [place] [address] Apr, [facility] [address] [id number] [address] [place] [address], [place] [address] Mar, [facility] [address] [id number] [address] [place] [address], [place] [address] Mar, [facility] [address] [id number] [address] [place] [address], [place] [address] Mar, [facility] [address] [id number] [address] [place] [address], [place] [address] Mar, [facility] [address] [id number] [address] [place] [address], [place] [address] Feb, [facility] [address] [id number] [address] [place] [address], [place] [address] Feb, [facility] [address] [id number] [address] [place] [address], [place] [address] Feb, [facility] [address] [id number] [address] [place] [address], [place] [address] Feb, [facility] [address] [id number] [facility] [place] [address] Jan, [facility] [address] [id number] [address] [place] [address], [place] [address] Jan, [facility] [address] [id number] [address] [place] [address], [place] [address] Jan, [facility] [address] [id number] [address] [place] [address], [place] [address] Jan, [facility] [address] [id number] [address] [place] [address], [place] [address] Jan, [facility] [address] [id number] [address] [place] [address], [place] [address] Jan, [facility] [address] [id number] [address] [place] [address], [place] [address] Jan, [facility] [address] [id number] [address] [place] [address], [place] [address] Jan, [facility] [address] [id number] [address] [place] [address], [place] [address] Jan, [facility] [address] [id number] [address] [place] [address], [place] [address] Jan, [facility] [address] [id number] [address] [place] [address], [place] [address] December, [facility] [address] [id number] [address] [place] [address], [place] [address] December, [facility] [address] [id number] [address] [place] [address], [place] [address] December, [facility] [address] [id number] [address] [place] [address], [place] [address] December, [facility] [address] [id number] [address] [place] [address], [place] [address] December, [facility] [address] [id number] [facility] [place] [address] 24 Nov, 2013 [facility] [address] [id number] [address] [place] [address], [place] [address] Nov, [facility] [address] [id number] [facility] [place] [address] Nov, [facility] [address] [id number] [address] [place] [address], [place] [address] Oct, [facility] [address] [id number] [address] [place] [address], [place] [address] Oct, [facility] [address] [id number] [address] [place] [address], [place] [address] Oct, [facility] [address] [id number] [address] [place] [address], [place] [address] Oct, [facility] [address] [id number] [address] [place] [address], [place] [address] Oct, [facility] [address] [id number] [address] [place] [address], [place] [address] Oct, [facility] [address] [id number] [address] [place] [address], [place] [address] Oct, [facility] [address] [id number] [address] [place] [address], [place] [address] Oct, [facility] [address] [id number] [address] [place] [address], [place] [address] Oct, [facility] [address] [id number] [address] [place] [address], [place] [address] Sep, [facility] [address] [id number] [address] [place] [address], [place] [address] Sep, [facility] [address] [id number] [address] [place] [address], [place] [address] Aug, [facility] [address] [id number] [address] [place] [address], [place] [address] Aug, [facility] [address] [id number] [address] [place] [address], [place] [address] Aug, [facility] [address] [id number] [address] [place] [address], [place] [address] Aug, [facility] [address] [id number] [address] [place] [address], [place] [address] Jul, [facility] [address] [id number] [address] [place] [address], [place] [address] Jul, [facility] [address] [id number] [address] [place] [address], [place] [address] Jul, [facility] [address] [id number] [address] [place] [address], [place] [address] Jul, [facility] [address] [id number] [address] [place] [address], [place] [address] Jun, [facility] [address] [id number] [address] [place] [address], [place] [address] Jun, [facility] [address] [id number] [address] [place] [address], [place] [address] Jun, [facility] [address] [id number] [address] [place] [address], [place] [address] Jun, [facility] [address] [id number] [address] [place] [address], [place] [address] May, [facility] [address] [id number] [address] [place] [address] May, [facility] [address] [id number] [address] [place] [address], [place] [address] May, [facility] [address] [id number] [address] [place] [address], [place] [address] 08 May, 2013 [facility] [address] [id number] [address] [place] [address], [place] [address] May, [facility] [address] [id number] [address] [place] [address] [place] [address] May, [facility] [address] [id number] [address] [place] [address], [place] [address] Apr, [facility] [address] [id number] [address] [place] [address], [place] [address] Mar, [facility] [address] [id number] [address] [place] [address], [place] [address] Mar, [facility] [address] [id number] [address] [place] [address], [place] [address] Mar, [facility] [address] [id number] [address] [place] [address], [place] [address] Feb, [facility] [address] [id number] [address] [place] [address], [place] [address] Feb, [facility] [address] [id number] [address] [place] [address], [place] [address] Feb, [facility] [address] [id number] [address] [place] [address], [place] [address] Jan, [facility] [address] [id number] [address] [place] [address], [place] [address] Jan, [facility] [address] [id number] [address] [place] [address], [place] [address] December, [facility] [address] [id number] [address] [place] [address], [place] [address] December, [facility] [address] [id number] [address] [place] [address], [place] [address] December, [facility] [address] [id number] [address] [place] [address], [place] [address] Nov, [facility] [address] [id number] [address] [place] [address], [place] [address] Nov, [facility] [address] [id number] [address] [place] [address], [place] [address] Nov, [facility] [address] [id number] [address] [place] [address], [place] [address] 2012 [facility] [address] [id number] [address] [place] [address], [place] [address] 15 Nov, 2012 [facility] [address] [id number] [address] [place] [address], [place] [address] 05 Nov, 2012 [facility] [address] [id number] [address] [place] [address], [place] [address] 25 Oct, 2012 [facility] [address] [id number] [address] [place] [address], [place] [address] 14 Oct, 2012 [facility] [address] [id number] [address] [place] [address], [place] [address] Oct, [facility] [address] [id number] [address] [place] [address], [place] [id number] 06 Oct, 2012 [facility] [address] [id number] [address] [place] [address], [place] [address] 28 Sep, 2012 [facility] [address] [id number] [address] [place] [address], [place] [address] Sep, [facility] [address] [id number] [address] [place] [address], [place] [address] Sep, [facility] [address] [id number] [address] [place] [address], [place] [address] Sep, [facility] [address] [id number] [address] [place] [address], [place] [address] Sep, [facility] [address] [id number] [address] [place] [address], [place] [address] Aug, [facility] [address] [id number] [address] [place] [address], [place] [address] Aug, [facility] [facility] [address] [id number] [address] [place] [address], [place] [id number] Aug, [facility] [address] [id number] [address] [place] [phone] Aug, [facility] [address] [facility] [id number] [address] [place] [id number] Aug, [facility] [address] [facility] [id number] [address] [place] [phone] Aug, [facility] [address] [facility] [id number] [address] [place] [id number] May, [facility] [address] [facility] [id number] [address] [place] [phone] May, IMMUNIZATIONS No Known Immunizations SOCIAL HISTORY [...]
--- OUTSIDE RECORDS SUMMARY | 2020-04-04 03:12 | XMS REPORT ---
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 Active 982860363 Problem Mixed hyperlipidemia E78.2 Active 523116799 Problem Anxiety disorder, unspecified F41.9 Active 135710311 Problem Schizoaffective disorder, bipolar type F25.0 Active 52342998 Problem Panic disorder F41.0 Active 01107 1005 ALLERGIES No Information ENCOUNTERS Encounter Location Date Diagnosis [facility] [address] [facility] [id number] [address] [place] [address] Apr, [facility] [address] [facility] [id number] [address] [place] [address] Feb, [facility] [address] [facility] [id number] [address] [place] [address] Feb, [facility] [address] [id number] [address] [place] [address] Feb, [facility] [address] [facility] [id number] [address] [place] [address] Feb, [facility] [address] [facility] [id number] [address] [place] [address] Feb, [facility] [address] [place] [id number] [address] [place] [address] Feb, Type 1 diabetes mellitus wit hout complication E10.9 [place] [address] [address] Feb, Methamphetamine use disorder , severe, dependence F15.20 ; 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 and Stimulant- induced mood disorder with mixed depressive and manic symptoms F15.94 [place] [address] [address] Feb, Panic disorder F41.0 and Andre izoaffective disorder, bipolar type F25.0 [place] [address] [address] Feb, Counseled by nurse Z71.9 and Light-headed feeling R42 [place] [address] [address] Feb, [facility] [address] [address] Feb, Anxiety disorder, unspecifie d F41.9 [place] [address] [address] Jan, Type 1 diabetes mellitus wit hout complication E10.9 ; Schizoaffective disorder, depressive type F25.1 and Mixed hyperlipidemia E78.2 [place] [address] [place] [id number] [address] [place] [address] Jan, [facility] [address] [place] [id number] [address] [place] [address] Jan, Hordeolum externum of left u pper eyelid H00.014 [place] [address] [place] [id number] [address] [place] [address] Jan, Anxiety disorder, unspecifie d F41.9 [facility] [address] [place] [id number] [address] [place] [address] Jan, 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 and Worried well Z71.1 [facility] [address] [id number] [address] [place] [address] Oct, [facility] [address] [id number] [address] [place] [address] Jun, [facility] [address] [id number] [address] [place] [address] Jun, [facility] [address] [id number] [address] [place] [address] Jun, [facility] [address] [id number] [address] [place] [address] May, Type 1 diabetes mellitus wit hout complication E10.9 [facility] [address] [facility] [id number] [address] [place] [address] May, Type 1 diabetes mellitus wit hout complication E10.9 ; Encounter for immunization Z23 and Mood disorder F39 [facility] [address] [id number] [address] [place] [address] December, [facility] [address] [facility] [id number] [address] [place] [address] Nov, [facility] [address] [facility] [id number] [address] [place] [address] Nov, Uncontrolled type 1 diabetes mellitus without complication E10.9 [facility] [address] [facility] [id number] [address] [place] [address] Nov, Impingement syndrome, should er, right M75.41 and Adhesive capsulitis of right shoulder M75.01 [facility] [address] [facility] [id number] [address] [place] [address] Nov, Uncontrolled type 1 diabetes mellitus without complication E10.9 [facility] [address] [facility] [id number] [address] [place] [address] Oct, Uncontrolled type 1 diabetes mellitus without complication E10.9 ; Other chronic pain G89.29 ; Pain in right shoulder M25.511 and Schizoaffective disorder, depressive type F25.1 [facility] [address] [id number] [address] [place] [address] May, Mood disorder F39 and Contro lled diabetes mellitus type 1 without complications E10.9 [facility] [address] [id number] [address] [place] [address] May, [facility] [address] [id number] [address] [place] [address] May, [facility] [address] [id number] [address] [place] [address] Apr, Mood disorder F39 ; 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 and Type 1 diabetes mellitus with hyperglycemia E10.65 [facility] [address] [id number] [address] [place] [address] Apr, Mood disorder F39 [facility] [address] [id number] [address] [place] [address] Mar, [facility] [address] [id number] [address] [place] [address] Feb, [facility] [address] [id number] [address] [place] [address] Jan, [facility] [address] [id number] [address] [place] [address] Jan, [facility] [address] [id number] [address] [place] [address] Jan, [facility] [address] [id number] [address] [place] [address] December, [facility] [address] [id number] [address] [place] [address] December, 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 and Controlled type 1 diabetes mellitus with diabetic neuropathy, with long-term current use of insulin E10.40 [facility] [address] [place] [id number] [address] [place] [address] December, Schizo-affective schizophren ia F25.0 [facility] [address] [place] [id number] [address] [place] [address] Nov, [facility] [address] [place] [id number] [address] [place] [address] Nov, Anxiety disorder, unspecifie d F41.9 and Schizo-affective schizophrenia F25.0 [facility] [address] [place] [id number] [address] [place] [address] Nov, Schizo-affective schizophren ia F25.0 [facility] [address] [place] [id number] [place] [address] Oct, [facility] [address] [place] [id number] [place] [address] Sep, [facility] [address] [place] [id number] [address] [place] [address] Sep, [facility] [address] [place] [id number] [address] [place] [address] Sep, [facility] [address] [address] Aug, [facility] [address] [address] Aug, [facility] [address] [place] [id number] [address] [place] [address] Jul, [facility] [address] [place] [id number] [address] [place] [address] Jul, Diabetes type 1, controlled E10.9 [facility] [address] [place] [id number] [place] [address] Jun, Diabetes mellitus without me ntion of complication, type II or unspecified type, uncontrolled 250.02 [facility] [address] [address] Jun, Diabetes type 1, controlled E10.9 [place] [address] [address] May, Diabetes mellitus without me ntion of complication, type II or unspecified type, uncontrolled 250.02 [place] [address] [address] May, Anxiety 300.00 [place] [address] [address] May, Diabetes type 1, controlled E10.9 ; Schizo-affective schizophrenia F25.0 ; Mood disorder F39 and Bipolar 1 disorder F31.9 [place] [address] [address] May, [place] [address] [address] May, Anxiety F41.9 and Depression F32.9 [place] [address] [address] Apr, Diabetes mellitus without me ntion of complication, type II or unspecified type, uncontrolled 250.02 [place] [address] [address] Apr, Anxiety 300.00 and Diabetes mellitus without mention of complication, type II or unspecified type, uncontrolled 250.02 [place] [address] [address] Apr, [place] [address] [address] Apr, Anxiety 300.00 and Depressio n 311 [place] [address] [address] Apr, Major depression, recurrent 296.30 ; Anxiety, generalized 300.02 and No condition on [place] II V71.09 [place] [address] [address] Apr, [facility] [address] [id number] [address] [place] [address] Mar, Diabetes mellitus without me ntion of complication, type II or unspecified type, uncontrolled 250.02 and Anxiety 300.00 [facility] [address] [id number] [address] [place] [address] Mar, [facility] [address] [id number] [address] [place] [address] Feb, [facility] [address] [id number] [address] [place] [address] Feb, [facility] [address] [id number] [address] [place] [address] Feb, [facility] [address] [id number] [address] [place] [address] Jan, [facility] [address] [id number] [address] [place] [address] Jan, [facility] [address] [id number] [address] [place] [address] Jan, [facility] [address] [id number] [address] [place] [address] Jan, [facility] [address] [id number] [address] [place] [address] December, [facility] [address] [id number] [address] [place] [id number] December, Dental examination V72.2 [facility] [address] [id number] [address] [place] [address] December, Tooth pain 525.9 [facility] [address] [id number] [address] [place] [address] December, [facility] [address] [id number] [address] [place] [address] Nov, [facility] [address] [id number] [address] [place] [address], [place] [address] Nov, [facility] [address] [id number] [address] [place] [address], [place] [address] Oct, [facility] [address] [id number] [address] [place] [address], [place] [address] Oct, [facility] [address] [id number] [address] [place] [address], [place] [address] Sep, [facility] [address] [id number] [address] [place] [address], [place] [address] Sep, [facility] [address] [id number] [address] [place] [address], [place] [address] Sep, [facility] [address] [id number] [address] [place] [address], [place] [address] Sep, [facility] [address] [id number] [address] [place] [address], [place] [address] Aug, [facility] [address] [id number] [address] [place] [address], [place] [address] Aug, [facility] [address] [id number] [address] [place] [address], [place] [address] Aug, [facility] [address] [id number] [address] [place] [address], [place] [address] Aug, [facility] [address] [id number] [address] [place] [address], [place] [address] Jul, [facility] [address] [id number] [address] [place] [address], [place] [address] Jul, [facility] [address] [id number] [address] [place] [address], [place] [address] Jun, [facility] [address] [id number] [address] [place] [address], [place] [address] Jun, [facility] [address] [id number] [address] [place] [address], [place] [address] May, [facility] [address] [id number] [address] [place] [address], [place] [address] May, [facility] [address] [id number] [address] [place] [address], [place] [address] May, [facility] [address] [id number] [address] [place] [address], [place] [address] May, [facility] [address] [id number] [address] [place] [address], [place] [address] May, [facility] [address] [id number] [address] [place] [address], [place] [address] May, [facility] [address] [id number] [address] [place] [address], [place] [address] Apr, [facility] [address] [id number] [address] [place] [address], [place] [address] Apr, [facility] [address] [id number] [address] [place] [address], [place] [address] 17 Apr, 2014 [facility] [address] [id number] [address] [place] [address], [place] [address] Apr, [facility] [address] [id number] [address] [place] [address], [place] [address] Apr, [facility] [address] [id number] [address] [place] [address], [place] [address] Apr, [facility] [address] [id number] [address] [place] [address], [place] [address] Mar, [facility] [address] [id number] [address] [place] [address], [place] [address] Mar, [facility] [address] [id number] [address] [place] [address], [place] [address] Mar, [facility] [address] [id number] [address] [place] [address], [place] [address] Mar, [facility] [address] [id number] [facility] [place] [address] Feb, [facility] [address] [id number] [address] [place] [address], [place] [address] Feb, [facility] [address] [id number] [facility] [place] [address] Feb, [facility] [address] [id number] [address] [place] [address], [place] [address] Feb, [facility] [address] [id number] [address] [place] [address], [place] [address] Jan, [facility] [address] [id number] [address] [place] [address], [place] [address] Jan, [facility] [address] [id number] [address] [place] [address], [place] [address] Jan, [facility] [address] [id number] [address] [place] [address], [place] [address] Jan, [facility] [address] [id number] [address] [place] [address], [place] [address] Jan, [facility] [address] [id number] [address] [place] [address], [place] [address] Jan, [facility] [address] [id number] [address] [place] [address], [place] [address] Jan, [facility] [address] [id number] [address] [place] [address], [place] [address] Jan, [facility] [address] [id number] [address] [place] [address], [place] [address] Jan, [facility] [address] [id number] [address] [place] [address], [place] [address] Jan, [facility] [address] [id number] [address] [place] [address], [place] [address] December, [facility] [address] [id number] [address] [place] [address], [place] [address] December, [facility] [address] [id number] [address] [place] [address], [place] [address] December, [facility] [address] [id number] [address] [place] [address], [place] [address] December, [facility] [address] [id number] [address] [place] [address], [place] [address] December, [facility] [address] [id number] [address] [place] [address], [place] [address] Nov, [facility] [address] [id number] [address] [place] [address], [place] [address] Nov, [facility] [address] [id number] [address] [place] [address], [place] [address] Nov, [facility] [address] [id number] [address] [place] [address], [place] [address] Oct, [facility] [address] [id number] [address] [place] [address], [place] [address] Oct, [facility] [address] [id number] [address] [place] [address], [place] [address] Oct, [facility] [address] [id number] [address] [place] [address], [place] [address] Oct, [facility] [address] [id number] [address] [place] [address], [place] [address] Oct, [facility] [address] [id number] [address] [place] [address], [place] [address] Oct, [facility] [address] [id number] [address] [place] [address], [place] [address] Oct, [facility] [address] [id number] [address] [place] [address], [place] [address] Oct, [facility] [address] [id number] [address] [place] [address], [place] [address] Oct, [facility] [address] [id number] [address] [place] [address] Sep, [facility] [address] [id number] [address] [place] [address], [place] [address] Sep, [facility] [address] [id number] [address] [place] [address] Aug, [facility] [address] [id number] [address] [place] [address], [place] [address] Aug, [facility] [address] [id number] [address] [place] [address], [place] [address] Aug, [facility] [address] [id number] [address] [place] [address], [place] [address] Aug, [facility] [address] [id number] [address] [place] [address], [place] [address] Jul, [facility] [address] [id number] [address] [place] [address] Jul, [facility] [address] [id number] [address] [place] [address] Jul, [facility] [address] [id number] [address] [place] [address] Jul, [facility] [address] [id number] [address] [place] [address] Jun, [facility] [address] [id number] [address] [place] [address] Jun, [facility] [address] [id number] [address] [place] [address] Jun, [facility] [address] [id number] [address] [place] [address] Jun, [facility] [address] [id number] [address] [place] [address] May, [facility] [address] [id number] [address] [place] [address] May, [facility] [address] [id number] [address] [place] [address], [place] [address] May, [facility] [address] [id number] [address] [place] [address], [place] [address] May, [facility] [address] [id number] [address] [place] [address], [place] [address] May, [facility] [address] [id number] [address] [place] [address], [place] [address] May, [facility] [address] [id number] [address] [place] [address], [place] [address] Apr, [facility] [address] [id number] [address] [place] [address], [place] [address] Mar, [facility] [address] [id number] [address] [place] [address], [place] [address] Mar, [facility] [address] [id number] [address] [place] [address], [place] [address] Mar, [facility] [address] [id number] [address] [place] [address], [place] [address] Feb, [facility] [address] [id number] [address] [place] [address], [place] [address] Feb, [facility] [address] [id number] [address] [place] [address], [place] [address] Feb, [facility] [address] [id number] [address] [place] [address], [place] [address] Jan, [facility] [address] [id number] [address] [place] [address], [place] [address] Jan, [facility] [address] [id number] [address] [place] [address], [place] [address] December, [facility] [address] [id number] [address] [place] [address], [place] [address] December, [facility] [address] [id number] [address] [place] [address] [address] December, [facility] [address] [id number] [address] [place] [address], [place] [address] 29 Nov, 2012 [facility] [address] [id number] [address] [place] [address], [place] [address] 24 Nov, 2012 [facility] [address] [id number] [address] [place] [address], [place] [address] Nov, [facility] [address] [id number] [address] [place] [address], [place] [address] 2012 [facility] [address] [id number] [address] [place] [address], [place] [address] 15 Nov, 2012 [facility] [address] [id number] [address] [place] [address], [place] [address] 05 Nov, 2012 [facility] [address] [id number] [address] [place] [address], [place] [address] Oct, [facility] [address] [id number] [address] [place] [address], [place] [address] 14 Oct, 2012 [facility] [address] [id number] [address] [place] [address], [place] [address] Oct, [facility] [address] [id number] [address] [place] [address], [place] [address] 06 Oct, 2012 [facility] [address] [id number] [address] [place] [address], [place] [address] 28 Sep, 2012 [facility] [address] [id number] [address] [place] [address], [place] [address] Sep, [facility] [address] [id number] [address] [place] [address], [place] [address] 18 Sep, 2012 [facility] [address] [id number] [address] [place] [address], [place] [id number] Sep, [facility] [address] [id number] [place] [address], [place] [id number] Sep, [facility] [address] [id number] [place] [id number] Aug, [facility] [address] [id number] [place] [id number] Aug, [facility] [address] [id number] [place] [id number] Aug, [facility] [address] [id number] [place] [id number] Aug, [facility] [address] [id number] [place] [id number] Aug, [facility] [address] [id number] [address] [place] [id number] Aug, [facility] [address] [id number] [place] [id number] May, [facility] [address] [id number] [place] [id number] May, IMMUNIZATIONS No Known Immunizations SOCIAL HISTORY [...] liver failure Hospitalization History hallucinations Hospitalization History [facility]- Hep A 2019
--- NOTE | 2020-04-04 03:13 | NUR ---
C COLLAR PLACED BY PROVIDER.
--- OUTSIDE RECORDS SUMMARY | 2020-04-04 03:13 | XMS REPORT ---
Author Author Darien VILLALOBOS Organization [facility] Address [address] [place] [address] Care Team Providers Care Director Of Customer Service Name Role Phone CHRISTOPHER VILLALOBOS Unavailable PROBLEMS Type Condition ICD9-CM Code [id number] Code Onset Dates Condition S tatus SNOMED Code Problem Diabetes type 1, controlled E10.9 Ac tive 37937001 Problem Type 2 diabetes mellitus with hyperglycemia E11.65 Active 123590177035348 Problem Type 1 diabetes mellitus with hyperglycemia E10.65 Active 699919868177395 Problem Uncontrolled type 1 diabetes mellitus without complication E10.9 Active 111090149 Problem Type 1 diabetes mellitus without complication E10. 9 Active 957529353 Problem Type 1 diabetes mellitus with diabetic polyneuropathy E10.42 Active 46927089 Problem Mood disorder F39 Active 635974 05 Problem Other chronic pain G89.29 Active 8 2041465 Problem Schizoaffective disorder, depressive type F25.1 Active [id number] ALLERGIES No Information ENCOUNTERS Encounter Location Date Diagnosis [facility] [address] [facility] [id number] [address] [place] [address] Oct, [facility] [address] [facility] [id number] [address] [place] [address] Jun, [facility] [address] [facility] [id number] [address] [place] [address] Jun, [facility] [address] [facility] [id number] [address] [place] [address] Jun, [facility] [address] [facility] [id number] [address] [place] [address] May, Type 1 diabetes mellitus wit hout complication E10.9 [facility] [address] [facility] [id number] [address] [place] [address] May, Type 1 diabetes mellitus wit hout complication E10.9 ; Encounter for immunization Z23 and Mood disorder F39 [facility] [address] [id number] [address] [place] [address] December, [place] [address] [id number] [address] [place] [address] Nov, [place] [address] [facility] [id number] [address] [place] [address] Nov, Uncontrolled type 1 diabetes mellitus without complication E10.9 [place] [address] [facility] [id number] [address] [place] [address] Nov, Impingement syndrome, should er, right M75.41 and Adhesive capsulitis of right shoulder M75.01 [place] [address] [facility] [id number] [address] [place] [address] Nov, Uncontrolled type 1 diabetes mellitus without complication E10.9 [place] [address] [place] [id number] [address] [place] [address] Oct, Uncontrolled type 1 diabetes mellitus without complication E10.9 ; Other chronic pain G89.29 ; Pain in right shoulder M25.511 and Schizoaffective disorder, depressive type F25.1 [place] [address] [facility] [id number] [address] [place] [address] May, Mood disorder F39 and Contro lled diabetes mellitus type 1 without complications E10.9 [place] [address] [facility] [id number] [address] [place] [address] May, [place] [address] [facility] [id number] [address] [place] [address] May, [place] [address] [facility] [id number] [address] [place] [address] 30 Apr, 2016 Mood disorder F39 ; 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 and Type 1 diabetes mellitus with hyperglycemia E10.65 [place] [address] [facility] [id number] [address] [place] [address] Apr, Mood disorder F39 [place] [address] [id number] [address] [place] [address] Mar, [facility] [address] [id number] [address] [place] [address] Feb, [facility] [address] [id number] [address] [place] [address] Jan, [facility] [address] [facility] [id number] [address] [place] [address] Jan, [facility] [address] [id number] [address] [place] [address] Jan, [facility] [address] [facility] [id number] [address] [place] [address] December, [facility] [address] [facility] [id number] [address] [place] [address] December, 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 and Controlled type 1 diabetes mellitus with diabetic neuropathy, with long-term current use of insulin E10.40 [facility] [address] [facility] [id number] [address] [place] [address] December, Schizo-affective schizophren ia F25.0 [facility] [address] [facility] [id number] [address] [place] [address] Nov, [facility] [address] [facility] [id number] [address] [place] [address] Nov, Anxiety disorder, unspecifie d F41.9 and Schizo-affective schizophrenia F25.0 [facility] [address] [facility] [id number] [address] [place] [address] Nov, Schizo-affective schizophren ia F25.0 [facility] [address] [facility] [id number] [address] [place] [address] Oct, [facility] [address] [facility] [id number] [address] [place] [address] Sep, [facility] [address] [place] [id number] [address] [place] [address] Sep, [facility] [address] [place] [id number] [place] [address] Sep, [facility] [address] [place] [id number] [address] [place] [address] Aug, [facility] [address] [address] Aug, [facility] [address] [place] [id number] [place] [address] Jul, [place] [address] [address] Jul, Diabetes type 1, controlled E10.9 [place] [address] [address] Jun, Diabetes mellitus without me ntion of complication, type II or unspecified type, uncontrolled 250.02 [place] [address] [address] 09 Jun, 2015 Diabetes type 1, controlled E10.9 [place] [address] [address] May, Diabetes mellitus without me ntion of complication, type II or unspecified type, uncontrolled 250.02 [place] [address] [address] May, Anxiety 300.00 [facility] [address] [address] 09 May, 2015 Diabetes type 1, controlled E10.9 ; Schizo-affective schizophrenia F25.0 ; Mood disorder F39 and Bipolar 1 disorder F31.9 [place] [address] [address] May, [facility] [address] [address] May, Anxiety F41.9 and Depression F32.9 [facility] [address] [address] Apr, Diabetes mellitus without me ntion of complication, type II or unspecified type, uncontrolled 250.02 [facility] [address] [place] [id number] [place] [address] Apr, Anxiety 300.00 and Diabetes mellitus without mention of complication, type II or unspecified type, uncontrolled 250.02 [facility] [address] [address] Apr, [facility] [address] [address] Apr, Anxiety 300.00 and Depressio n 311 [facility] [address] [address] Apr, Major depression, recurrent 296.30 ; Anxiety, generalized 300.02 and No condition on [place] II V71.09 [facility] [address] [address] Apr, [facility] [address] [address] Mar, Diabetes mellitus without me ntion of complication, type II or unspecified type, uncontrolled 250.02 and Anxiety 300.00 [facility] [address] [address] Mar, [facility] [address] [address] Feb, [facility] [address] [address] Feb, [facility] [address] [address] Feb, [facility] [address] [address] Jan, [facility] [address] [id number] [address] [place] [address] Jan, [facility] [address] [id number] [address] [place] [address] Jan, [facility] [address] [id number] [address] [place] [address] Jan, [facility] [address] [id number] [address] [place] [address] December, [facility] [address] [id number] [address] [place] [id number] December, Dental examination V72.2 [facility] [address] [id number] [address] [place] [address] December, Tooth pain 525.9 [facility] [address] [id number] [address] [place] [address] December, [facility] [address] [id number] [address] [place] [address] Nov, [facility] [address] [id number] [address] [place] [address] Nov, [facility] [address] [id number] [address] [place] [address] Oct, [facility] [address] [id number] [address] [place] [address] Oct, [facility] [address] [id number] [address] [place] [address] Sep, [facility] [address] [id number] [address] [place] [address] Sep, [facility] [address] [id number] [address] [place] [address] Sep, [facility] [address] [id number] [address] [place] [address] Sep, [facility] [address] [id number] [address] [place] [address], [place] [address] Aug, [facility] [address] [id number] [address] [place] [address], [place] [address] Aug, [facility] [address] [id number] [address] [place] [address], [place] [address] Aug, [facility] [address] [id number] [address] [place] [address], [place] [address] Aug, [facility] [address] [id number] [address] [place] [address], [place] [address] Jul, [facility] [address] [id number] [address] [place] [address], [place] [address] Jul, [facility] [address] [id number] [address] [place] [address], [place] [address] Jun, [facility] [address] [id number] [address] [place] [address], [place] [address] Jun, [facility] [address] [id number] [address] [place] [address], [place] [address] May, [facility] [address] [id number] [address] [place] [address], [place] [address] May, [facility] [address] [id number] [address] [place] [address], [place] [address] May, [facility] [address] [id number] [address] [place] [address], [place] [address] May, [facility] [address] [id number] [address] [place] [address], [place] [address] May, [facility] [address] [id number] [address] [place] [address], [place] [address] May, [facility] [address] [id number] [address] [place] [address], [place] [address] Apr, [facility] [address] [id number] [address] [place] [address], [place] [address] Apr, [facility] [address] [id number] [facility] [place] [address] Apr, [facility] [address] [id number] [address] [place] [address], [place] [address] Apr, [facility] [address] [id number] [address] [place] [address], [place] [address] Apr, [facility] [address] [id number] [address] [place] [address], [place] [address] Apr, [facility] [address] [id number] [address] [place] [address], [place] [address] Mar, [facility] [address] [id number] [address] [place] [address], [place] [address] Mar, [facility] [address] [id number] [address] [place] [address], [place] [address] Mar, [facility] [address] [id number] [address] [place] [address], [place] [address] Mar, [facility] [address] [id number] [address] [place] [address], [place] [address] Feb, [facility] [address] [id number] [address] [place] [address], [place] [address] Feb, [facility] [address] [id number] [address] [place] [address], [place] [address] Feb, [facility] [address] [id number] [address] [place] [address], [place] [address] Feb, [facility] [address] [id number] [address] [place] [address], [place] [address] Jan, [facility] [address] [id number] [address] [place] [address], [place] [address] Jan, [facility] [address] [id number] [address] [place] [address], [place] [address] 16 Jan, 2014 [facility] [address] [id number] [address] [place] [address], [place] [address] Jan, [facility] [address] [id number] [facility] [place] [address] Jan, [facility] [address] [id number] [address] [place] [address], [place] [address] Jan, [facility] [address] [id number] [address] [place] [address], [place] [address] Jan, [facility] [address] [id number] [address] [place] [address], [place] [address] Jan, [facility] [address] [id number] [address] [place] [address], [place] [address] Jan, [facility] [address] [id number] [address] [place] [address], [place] [address] Jan, [facility] [address] [id number] [address] [place] [address], [place] [address] December, [facility] [address] [id number] [address] [place] [address], [place] [address] December, [facility] [address] [id number] [address] [place] [address], [place] [address] December, [facility] [address] [id number] [address] [place] [address], [place] [address] December, [facility] [address] [id number] [address] [place] [address], [place] [address] December, [facility] [address] [id number] [address] [place] [address], [place] [address] Nov, [facility] [address] [id number] [address] [place] [address], [place] [address] Nov, [facility] [address] [id number] [address] [place] [address], [place] [address] Nov, [facility] [address] [id number] [address] [place] [address], [place] [address] Oct, [facility] [address] [id number] [facility] [address] 29 Oct, 2013 [facility] [address] [id number] [address] [place] [address], [place] [address] 29 Oct, 2013 [facility] [address] [id number] [facility] [place] [address] Oct, [facility] [address] [id number] [address] [place] [address], [place] [address] Oct, [facility] [address] [id number] [address] [place] [address], [place] [address] Oct, [facility] [address] [id number] [address] [place] [address], [place] [address] Oct, [facility] [address] [id number] [address] [place] [address], [place] [address] Oct, [facility] [address] [id number] [address] [place] [address], [place] [address] Oct, [facility] [address] [id number] [address] [place] [address], [place] [address] Sep, [facility] [address] [id number] [address] [place] [address], [place] [address] Sep, [facility] [address] [id number] [address] [place] [address], [place] [address] Aug, [facility] [address] [id number] [address] [place] [address], [place] [address] Aug, [facility] [address] [id number] [address] [place] [address], [place] [address] Aug, [facility] [address] [id number] [address] [place] [address], [place] [address] Aug, [facility] [address] [id number] [address] [place] [address], [place] [address] Jul, [facility] [address] [id number] [address] [place] [address], [place] [address] Jul, [facility] [address] [id number] [address] [place] [address], [place] [address] Jul, [facility] [address] [id number] [address] [place] [address], [place] [address] Jul, [facility] [address] [id number] [address] [place] [address], [place] [address] Jun, [facility] [address] [id number] [address] [place] [address], [place] [address] Jun, [facility] [address] [id number] [address] [place] [address], [place] [address] Jun, [facility] [address] [id number] [address] [place] [address], [place] [address] Jun, [facility] [address] [id number] [address] [place] [address], [place] [address] May, [facility] [address] [id number] [address] [place] [address], [place] [address] May, [facility] [address] [id number] [address] [place] [address], [place] [address] May, [facility] [address] [id number] [address] [place] [address] May, [facility] [address] [id number] [address] [place] [address] May, [facility] [address] [id number] [address] [place] [address] May, [facility] [address] [id number] [address] [place] [address], [place] [address] Apr, [facility] [address] [id number] [address] [place] [address], [place] [address] Mar, [facility] [address] [id number] [address] [place] [address], [place] [address] Mar, [facility] [address] [id number] [address] [place] [address], [place] [address] Mar, [facility] [address] [id number] [address] [place] [address], [place] [address] Feb, [facility] [address] [id number] [address] [place] [address], [place] [address] Feb, [facility] [address] [id number] [address] [place] [address], [place] [address] Feb, [facility] [address] [id number] [address] [place] [address], [place] [address] Jan, [facility] [address] [id number] [address] [place] [address], [place] [address] Jan, [facility] [address] [id number] [address] [place] [address], [place] [address] December, [facility] [address] [id number] [address] [place] [address], [place] [address] December, [facility] [address] [id number] [address] [place] [address], [place] [address] December, [facility] [address] [id number] [address] [place] [address], [place] [address] Nov, [facility] [address] [id number] [address] [place] [address], [place] [address] Nov, [facility] [address] [id number] [address] [place] [address], [place] [address] Nov, [facility] [address] [id number] [address] [place] [address], [place] [address] 2012 [facility] [address] [id number] [address] [place] [address], [place] [address] 15 Nov, 2012 [facility] [address] [id number] [address] [place] [address], [place] [address] Nov, [facility] [address] [id number] [address] [place] [address], [place] [address] Oct, [facility] [address] [id number] [address] [place] [address], [place] [id number] 14 Oct, 2012 [facility] [address] [id number] [address] [place] [address], [place] [address] Oct, [facility] [address] [id number] [address] [place] [address], [place] [address] 06 Oct, 2012 [facility] [address] [id number] [address] [place] [address], [place] [id number] 28 Sep, 2012 [facility] [address] [id number] [address] [place] [address], [place] [address] Sep, [facility] [address] [id number] [address] [place] [address], [place] [address] Sep, [facility] [address] [id number] [address] [place] [address], [place] [address] Sep, [facility] [address] [id number] [address] [place] [address], [place] [address] Sep, [facility] [address] [id number] [address] [place] [address], [place] [address] Aug, [facility] [address] [id number] [address] [place] [address], [place] [address] Aug, [facility] [address] [id number] [address] [place] [address], [place] [address] Aug, [facility] [address] [id number] [address] [place] [address], [place] [address] Aug, [facility] [address] [id number] [address] [place] [address], [place] [address] Aug, [facility] [address] [id number] [address] [place] [address], [place] [address] Aug, [facility] [address] [id number] [address] [place] [address], [place] [address] 15 May, 2011 [facility] [address] [id number] [address] [place] [id number] May, IMMUNIZATIONS No Known Immunizations SOCIAL HISTORY Never Assessed REASON FOR VISIT PLAN OF CARE VITAL SIGNS Height 69 in 2013-07-31 Weight 146.5 lbs 2013-07-31 Temperature 97.1 degrees Fahrenheit 2013-07-31 Heart Rate 100 bpm 2013-07-31 Respiratory Rate 18 2013-07-31 Blood pressure systolic 116 mmHg 2013-07-31 Blood pressure diastolic 60 mmHg 2013-07-31 MEDICATIONS Unknown Medications RESULTS No Results PROCEDURES No Known procedures INSTRUCTIONS MEDICATIONS ADMINISTERED No Known Medications MEDICAL (GENERAL) HISTORY Type Description Date Medical History type I diabetes Medical History hx of MRSA infections Medical History depression Medical History anxiety Surgical History I & D-MRSA Hospitalization History MRSA 2004
--- OUTSIDE RECORDS SUMMARY | 2020-04-04 03:17 | XMS REPORT | Continuity of Care Document ---
Author Author [facility] Organization [facility] Address Unknown Phone Unavailable Allergies Active Description Code Type Severity Reaction Onset Reported/Identified Relationship to Patient Clinical Status Yes No Known Drug Allergies [id number] Drug Allergy Unknown N/A 12/02/2013 Medications There [...] Type] Not Stated As Uncontrolled 06/04/2011 NORA BOWMANFCORDELL W 466.0 Acute Bronchitis 06/04/2011 CHRISTOPHER VILLALOBOS APRN 250.01 Diabetes Mellitus Without Mention Of Com plication Type I [juvenile Type] Not Stated As Uncontrolled 06/04/2011 CHRISTOHPER VILLALOBOS APRN 46 6.0 Acute Bronchitis 06/04/2011 NORA BOWMANFCORDELL W 250.01 Diabetes Mellitus Without Mention Of Com plication Type I [juvenile Type] Not Stated As Uncontrolled 06/04/2011 NORA LCMF, CORDELL W 466.0 Acute Bronchitis 06/04/2011 CHRISTOPHER VILLALOBOS APRN T 250.01 Diabetes Mellitus Without Mention Of Com plication Type I [juvenile Type] Not Stated As Uncontrolled 06/04/2011 CHRISTOPHER VILLALOBOS APRN T 46 6.0 Acute Bronchitis 06/04/2011 NORA LCMF, [...] 6.0 Acute Bronchitis 06/04/2011 CHRISTOPHER VILLALOBOS APRN T 250.01 Diabetes Mellitus Without Mention Of Com plication Type I [juvenile Type] Not Stated As Uncontrolled 06/04/2011 CHRISTOPHER VILLALOBOS APRN 46 6.0 Acute Bronchitis 09/08/2011 CHRISTOPHER VILLALOBOS APRN T 68 2.9 [...] MELLITUS TYPE 1 - UNCONTROLLED 09/19/2012 NALDO DDS, HI Roman 250.03 DIABETES MELLITUS TYPE 1 [...] MELLITUS TYPE 1 - UNCONTROLLED 09/19/2012 [facility] CORD[facility]L W 250.03 DIABETES MELLITUS TYPE 1 - UNCONTROLLED 09/19/2012 CHRISTOPHER VILLALOBOS APRN T 250.03 DIABETES MELLITUS TYPE 1 - UNCONTROLLED 09/19/2012 [facility] CORDELL W 250.03 DIABETES MELLITUS TYPE 1 - UNCONTROLLED 09/19/2012 CHRISTOPHER VILLALOBOS APRN 250.03 DIABETES MELLITUS TYPE 1 - UNCONTROLLED 09/19/2012 [facility] CORDELL W 250.03 DIABETES MELLITUS [...] APRN 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 10/10/2012 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 10/10/2012 314.00 ADH D INATTENTIVE 10/10/2012 CHRISTOPHER VILLALOBOS APRN 30 5.1 TOBACCO ABUSE 10/10/2012 CHRISTOPHER VILLALOBOS APRN 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 10/10/2012 CHRISTOPHER VILLALOBOS APRN 30 5.1 TOBACCO ABUSE 10/10/2012 CHRISTOPHER VILLALOBOS APRN 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 10/10/2012 WHITE DDS, HI J 30 5.1 TOBACCO ABUSE 10/10/2012 WHITE DDS, HI J 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 10/10/2012 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 10/10/2012 314.00 ADH D INATTENTIVE 10/10/2012 CHRISTOPHER VILLALOBOS APRN 30 5.1 TOBACCO ABUSE 10/10/2012 CHRISTOPHER VILLALOBOS APRN 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 10/10/2012 CHRISTOPHER VILLALOBOS APRN 30 5.1 TOBACCO ABUSE 10/10/2012 CHRISTOPHER VILLALOBOS APRN 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 10/10/2012 WILFREDO FRUIT PACKER, CHRISTOPHER T 30 5.1 TOBACCO ABUSE 10/10/2012 CHRISTOPHER VILLALOBOS APRN T 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 10/10/2012 CHRISTOPHER VILLALOBOS APRN T 30 5.1 TOBACCO ABUSE 10/10/2012 CHRISTOPHER VILLALOBOS APRN T 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 10/10/2012 CHRISTOPHER VILLALOBOS APRN T 30 5.1 TOBACCO ABUSE 10/10/2012 WILFREDO VIVAR CHRISTOPHER T 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 10/10/2012 NORA [...] VILLALOBOS APRN T 27 2.4 HYPERLIPIDEMIA 11/23/2012 HI [place] DDS 27 2.4 HYPERLIPIDEMIA 11/23/2012 272.4 HYPE RLIPIDEMIA 11/23/2012 CHRISTOPHER VILLALOBOS APRN T 27 2.4 HYPERLIPIDEMIA 11/23/2012 CHRISTOPHER VILLALOBOS APRN T 27 2.4 HYPERLIPIDEMIA 11/23/2012 CHRISTOPHER VILLALOBOS APRN T 27 2.4 HYPERLIPIDEMIA 11/23/2012 CHRISTOPHER VILLALOBOS APRN T 27 2.4 HYPERLIPIDEMIA 11/23/2012 CHRISTOPHER VILLALOBOS APRN T 27 2.4 HYPERLIPIDEMIA 11/23/2012 NORA LCMF, CORDELL W 272.4 HYPERLIPIDEMIA 11/23/2012 WILFREDO VIVAR, CHRISTOPHER T 27 2.4 HYPERLIPIDEMIA 11/23/2012 NORA LCMF, CORDELL W 272.4 HYPERLIPIDEMIA 11/23/2012 CHRISTOPHER VILLALOBOS APRN T 27 2.4 HYPERLIPIDEMIA 11/23/2012 NORA LCMF, CORDELL W 272.4 HYPERLIPIDEMIA 11/23/2012 CHRISTOPHER VILLALOBOS APRN T 27 2.4 HYPERLIPIDEMIA 11/23/2012 CHRISTOPHER VILLALOBOS APRN T 27 2.4 HYPERLIPIDEMIA 05/24/2013 CHRISTOPHER VILLALOBOS APRN T 250.02 DIABETES II UNCONTROLLED (UNCOMPLICATED) 05/24/2013 CHRISTOPHER VILLALOBOS APRN T 716.90 ARTHRITIS/ ARTHROPATHY, UNSPECIFIED 05/24/2013 WHITE DDS, HI J 250.02 DIABETES II UNCONTROLLED (UNCOMPLICATED) 05/24/2013 WHITE DDS, HI J 716.90 ARTHRITIS/ ARTHROPATHY, UNSPECIFIED 05/24/2013 250.02 NOREEN BETES II UNCONTROLLED (UNCOMPLICATED) 05/24/2013 716.90 ART HRITIS/ ARTHROPATHY, UNSPECIFIED 05/24/2013 CHRISTOPHER VILLALOBOS APRN T 250.02 DIABETES II UNCONTROLLED (UNCOMPLICATED) 05/24/2013 CHRISTOPHER VILLALOBOS APRN T 716.90 ARTHRITIS/ ARTHROPATHY, UNSPECIFIED 05/24/2013 CHRISTOPHER VILLALOBOS APRN T 250.02 DIABETES II UNCONTROLLED (UNCOMPLICATED) 05/24/2013 CHRISTOPHER VILLALOBOS APRN 716.90 ARTHRITIS/ ARTHROPATHY, UNSPECIFIED 05/24/2013 CHRISTOPHER VILLALOBOS APRN 250.02 DIABETES II UNCONTROLLED (UNCOMPLICATED) 05/24/2013 CHRISTOPHER VILLALOBOS APRN 716.90 ARTHRITIS/ ARTHROPATHY, UNSPECIFIED 05/24/2013 CHRISTOPHER VILLALOBOS APRN T 250.02 DIABETES II UNCONTROLLED (UNCOMPLICATED) 05/24/2013 CHRISTOPHER VILLALOBOS APRN T 716.90 ARTHRITIS/ ARTHROPATHY, UNSPECIFIED 05/24/2013 CHRISTOPHER VILLALOBOS APRN T 250.02 DIABETES II UNCONTROLLED (UNCOMPLICATED) 05/24/2013 CHRISTOPHER VILLALOBOS APRN T 716.90 ARTHRITIS/ ARTHROPATHY, UNSPECIFIED 05/24/2013 NORA LCMF, OCRDELL W 250.02 DIABETES II UNCONTROLLED (UNCOMPLICATED) 05/24/2013 NORA LCMF, CORDELL Sanders 716.90 ARTHRITIS/ ARTHROPATHY, UNSPECIFIED 05/24/2013 CHRISTOPHER VILLALOBOS APRN 250.02 DIABETES II UNCONTROLLED (UNCOMPLICATED) 05/24/2013 CHRISTOPHER VILLALOBOS APRN 716.90 ARTHRITIS/ ARTHROPATHY, UNSPECIFIED 05/24/2013 NORA IOANAMF, CORDELL W 250.02 DIABETES II UNCONTROLLED (UNCOMPLICATED) 05/24/2013 NORA IOAANMF, CORDELL Sanders 716.90 ARTHRITIS/ ARTHROPATHY, UNSPECIFIED 05/24/2013 CHRISTOPHER VILLALOBOS APRN 250.02 DIABETES II UNCONTROLLED (UNCOMPLICATED) 05/24/2013 CHRISTOPHER VILLALOBOS APRN 716.90 ARTHRITIS/ ARTHROPATHY, UNSPECIFIED 05/24/2013 NORA TRIPLETTMF, CORDELL W 250.02 DIABETES II UNCONTROLLED (UNCOMPLICATED) 05/24/2013 NORA TRIPLETTMF, CORDELL Sanders 716.90 ARTHRITIS/ ARTHROPATHY, UNSPECIFIED 05/24/2013 CHRISTOPHER VILLALOBOS APRN 250.02 DIABETES II UNCONTROLLED (UNCOMPLICATED) 05/24/2013 CHRISTOPHER VILLALOBOS APRN 716.90 ARTHRITIS/ ARTHROPATHY, UNSPECIFIED 05/24/2013 CHRISTOPHER VILLALOBOS APRN 250.02 DIABETES II UNCONTROLLED (UNCOMPLICATED) 05/24/2013 CHRISTOPHER VILLALOBOS APRN 716.90 ARTHRITIS/ ARTHROPATHY, UNSPECIFIED 09/16/2013 CHRISTOPHER VILLALOBOS APRN 250.01 DIABETES 1 CONTROLLED 09/16/2013 CHRISTOPHER VILLALOBOS APRN 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 09/16/2013 CHRISTOPHER VILLALOBOS APRN 250.01 DIABETES 1 CONTROLLED 09/16/2013 CHRISTOPHER VILLALOBOS APRN 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 09/16/2013 CHRISTOPHER VILLALOBOS APRN 250.01 DIABETES 1 CONTROLLED 09/16/2013 CHRISTOPHER VILLALOBOS APRN T 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 09/16/2013 NORA TRIPLETTF, CORDELL W 250.01 DIABETES 1 CONTROLLED 09/16/2013 NORA GRACIEF, CORDELL W 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 09/16/2013 CHRISTOPHER VILLALOBOS APRN T 250.01 DIABETES 1 CONTROLLED 09/16/2013 CHRISTOPHER VILLALOBOS APRN T 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 09/16/2013 NORA IOANAF, CORDELL W 250.01 DIABETES 1 CONTROLLED 09/16/2013 NORA IOANAMF, CORDELL W 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 09/16/2013 WILFREDO VIVAR, CHRISTOPHER T 250.01 DIABETES 1 CONTROLLED 09/16/2013 WILFREDO OLSENN, CHRISTOPHER T 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 09/16/2013 NORA LCMF, CORDELL W 250.01 DIABETES 1 CONTROLLED 09/16/2013 NORA LCMF, CORDELL W 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 09/16/2013 WILFREDO VIVAR, CHRISTOPHER T 250.01 DIABETES 1 CONTROLLED 09/16/2013 [...] APRN T 296.90 MOOD DISORDER 10/16/2013 NORA IOANAMF, CORDELL W 296.90 MOOD DISORDER 10/16/2013 WILFREDO VIVAR CHRISTOPHER T 296.90 MOOD DISORDER 10/16/2013 NORA IOANAMF, CORDELL W 296.90 MOOD DISORDER 10/16/2013 WILFREDO VIVAR, CHRISTOPHER T 296.90 MOOD DISORDER 10/16/2013 WILFREDO VIVAR, CHRISTOPHER T 296.90 MOOD DISORDER 12/02/2013 TURNER SOOD DO K Ot 305.70 AMPHETAMINE ABUSE-UNSPEC 12/02/2013 TURNER SOOD [...] T 295.70 P SCHIZO AFFECTIVE 03/14/2014 NORA [facility] CORDELL W 296.63 MO BIPOLAR I MIXED SEVERE W/O PSYCHOTIC BEHAVIOR 03/14/2014 CHRISTOPHER VILLALOBOS APRN 296.63 MO BIPOLAR I MIXED SEVERE W/O PSYCHOTIC BEHAVIOR 03/14/2014 CHRISTOPHER VILLALOBOS APRN 296.63 MO BIPOLAR I MIXED SEVERE W/O PSYCHOTIC BEHAVIOR 02/10/2016 SERA PRUITT MD, Ot D72.829 ELEVATED WHITE BLOOD CELL COUNT, [...] 02/10/2016 SERA PRUITT MD Ot Z79 .4 HALF-WAY (CURRENT) USE OF INSULIN 01/16/2020 LATRICIA ARTEAGA MD Ot E10.65 TYPE 1 DIABETES MELLITUS WITH HYPERGLYCE 01/16/2020 LATRICIA ARTEAGA MD Ot E86 .0 DEHYDRATION 01/16/2020 LATRICIA ARTEAGA MD Ot E87 .2 ACIDOSIS 01/16/2020 LATRICIA ARTEAGA MD Ot E87 .5 HYPERKALEMIA 01/16/2020 LATRICIA ARTEAGA MD Ot 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 01/16/2020 LATRICIA ARTEAGA MD Ot F20 .0 PARANOID SCHIZOPHRENIA 01/16/2020 LATRICIA ARTEAGA MD Ot F25 .9 SCHIZOAFFECTIVE DISORDER, UNSPECIFIED 01/16/2020 LATRICIA ARTEAGA MD Ot F31 .9 BIPOLAR DISORDER, UNSPECIFIED 01/16/2020 LATRICIA ARTEAGA MD Ot F41 .9 ANXIETY DISORDER, UNSPECIFIED 01/16/2020 LARTICIA ARTEAGA MD Ot F90 .9 ATTENTION-DEFICIT HYPERACTIVITY DISORDER 01/16/2020 LATRICIA ARTEAGA MD Ot I95 .9 HYPOTENSION, UNSPECIFIED 01/16/2020 LATRICIA ARTEAGA MD Ot N28 .9 DISORDER OF KIDNEY AND URETER, UNSPECIFI 01/16/2020 LATRICIA ARTEAGA MD Ot Z79 .4 HALF-WAY (CURRENT) USE OF INSULIN 01/17/2020 LATRICIA ARTEAGA MD Ot E10.65 TYPE 1 DIABETES MELLITUS WITH HYPERGLYCE 01/17/2020 LATRICIA ARTEAGA MD Ot E86 .0 DEHYDRATION 01/17/2020 LATRICIA ARTEAGA MD Ot E87 .2 ACIDOSIS 01/17/2020 LATRICIA ARTEAGA MD Ot E87 .5 HYPERKALEMIA 01/17/2020 LATRICIA ARTEAGA MD Ot 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 01/17/2020 LATRICIA ARTEAGA MD Ot F20 .0 PARANOID SCHIZOPHRENIA 01/17/2020 LATRICIA ARTEAGA MD Ot F25 .9 SCHIZOAFFECTIVE DISORDER, UNSPECIFIED 01/17/2020 LATRICIA ARTEAGA MD Ot F31 .9 BIPOLAR DISORDER, UNSPECIFIED 01/17/2020 LATRICIA ARTEAGA MD Ot F41 .9 ANXIETY DISORDER, UNSPECIFIED 01/17/2020 LATRICIA ARTEAGA MD Ot F90 .9 ATTENTION-DEFICIT HYPERACTIVITY DISORDER 01/17/2020 LATRICIA ARTEAGA MD Ot I95 .9 HYPOTENSION, UNSPECIFIED 01/17/2020 LATRICIA ARTEAGA MD Ot N28 .9 DISORDER OF KIDNEY AND URETER, UNSPECIFI 01/17/2020 LATRICIA ARTEAGA MD Ot Z79 .4 OIL WELL LOGGER (CURRENT) USE OF INSULIN 01/17/2020 LATRICIA ARTEAGA MD Ot E10.65 TYPE 1 DIABETES MELLITUS WITH HYPERGLYCE 01/17/2020 LATRICIA ARTEAGA MD Ot E86 .0 DEHYDRATION 01/17/2020 LATRICIA ARTEAGA MD Ot E87 .2 ACIDOSIS 01/17/2020 LATRICIA ARTEAGA MD Ot E87 .5 HYPERKALEMIA 01/17/2020 LATRICIA ARTEAGA MD Ot 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 01/17/2020 LATRICIA ARTEAGA MD Ot F20 .0 PARANOID SCHIZOPHRENIA 01/17/2020 LATRICIA ARTEAGA MD Ot F25 .9 SCHIZOAFFECTIVE DISORDER, UNSPECIFIED 01/17/2020 LATRICIA ARTEAGA MD Ot F31 .9 BIPOLAR DISORDER, UNSPECIFIED 01/17/2020 LATRICIA ARTEAGA MD Ot F41 .9 ANXIETY DISORDER, UNSPECIFIED 01/17/2020 LATRICIA ARTEAGA MD Ot F90 .9 ATTENTION-DEFICIT HYPERACTIVITY DISORDER 01/17/2020 LATRICIA ARTEAGA MD Ot I95 .9 HYPOTENSION, UNSPECIFIED 01/17/2020 LATRICIA ARTEAGA MD Ot N28 .9 DISORDER OF KIDNEY AND URETER, UNSPECIFI 01/17/2020 LATRICIA ARTEAGA MD Ot Z79 .4 HALF-WAY (CURRENT) USE OF INSULIN 01/17/2020 LATRICIA ARTEAGA MD Ot E10.65 TYPE 1 DIABETES MELLITUS WITH HYPERGLYCE 01/17/2020 LATRICIA ARTEAGA MD Ot E86 .0 DEHYDRATION 01/17/2020 LATRICIA ARTEAGA MD Ot E87 .2 ACIDOSIS 01/17/2020 LATRICIA ARTEAGA MD Ot E87 .5 HYPERKALEMIA 01/17/2020 LATRICIA ARTEAGA MD Ot 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 01/17/2020 LATRICIA ARTEAGA MD Ot F20 .0 PARANOID SCHIZOPHRENIA 01/17/2020 LATRICIA ARTEAGA MD Ot F25 .9 SCHIZOAFFECTIVE DISORDER, UNSPECIFIED 01/17/2020 LATRICIA ARTEAGA MD Ot F31 .9 BIPOLAR DISORDER, UNSPECIFIED 01/17/2020 LATRICIA ARTEAGA MD Ot F41 .9 ANXIETY DISORDER, UNSPECIFIED 01/17/2020 LATRICIA ARTEAGA MD Ot F90 .9 ATTENTION-DEFICIT HYPERACTIVITY DISORDER 01/17/2020 LATRICIA ARTEAGA MD Ot I95 .9 HYPOTENSION, UNSPECIFIED 01/17/2020 LATRICIA ARTEAGA MD Ot N28 .9 DISORDER OF KIDNEY AND URETER, UNSPECIFI 01/17/2020 LATRICIA ARTEAGA MD Ot Z79 .4 OIL WELL LOGGER (CURRENT) USE OF INSULIN 01/17/2020 LATRICIA ARTEAGA MD Ot E10.65 TYPE 1 DIABETES MELLITUS WITH HYPERGLYCE 01/17/2020 LATRICIA ARTEAGA MD Ot E86 .0 DEHYDRATION 01/17/2020 LATRICIA ARTEAGA MD Ot E87 .2 ACIDOSIS 01/17/2020 LATRICIA ARTEAGA MD Ot E87 .5 HYPERKALEMIA 01/17/2020 LATRICIA ARTEAGA MD Ot 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 01/17/2020 LATRICIA ARTEAGA MD Ot F20 .0 PARANOID SCHIZOPHRENIA 01/17/2020 LATRICIA ARTEAGA MD Ot F25 .9 SCHIZOAFFECTIVE DISORDER, UNSPECIFIED 01/17/2020 LATRICIA ARTEAGA MD Ot F31 .9 BIPOLAR DISORDER, UNSPECIFIED 01/17/2020 LATRICIA ARTEAGA MD Ot F41 .9 ANXIETY DISORDER, UNSPECIFIED 01/17/2020 LATRICIA ARTEAGA MD Ot F90 .9 ATTENTION-DEFICIT HYPERACTIVITY DISORDER 01/17/2020 LATRICIA ARTEAGA MD Ot I95 .9 HYPOTENSION, UNSPECIFIED 01/17/2020 LATRICIA ARTEAGA MD Ot N28 .9 DISORDER OF KIDNEY AND URETER, UNSPECIFI 01/17/2020 LATRICIA ARTEAGA MD Ot Z79 .4 OIL WELL LOGGER (CURRENT) USE OF INSULIN 01/17/2020 LATRICIA ARTEAGA MD Ot E10.65 TYPE 1 DIABETES MELLITUS WITH HYPERGLYCE 01/17/2020 LATRICIA ARTEAGA MD Ot E86 .0 DEHYDRATION 01/17/2020 LATRICIA ARTEAGA MD Ot E87 .2 ACIDOSIS 01/17/2020 LATRICIA ARTEAGA MD Ot E87 .5 HYPERKALEMIA 01/17/2020 LATRICIA ARTEAGA MD Ot 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 01/17/2020 LATRICIA ARTEAGA MD Ot F20 .0 PARANOID SCHIZOPHRENIA 01/17/2020 LATRICIA ARTEAGA MD Ot F25 .9 SCHIZOAFFECTIVE DISORDER, UNSPECIFIED 01/17/2020 LATRICIA ARTEAGA MD Ot F31 .9 BIPOLAR DISORDER, UNSPECIFIED 01/17/2020 LATRICIA ARTEAGA MD Ot F41 .9 ANXIETY DISORDER, UNSPECIFIED 01/17/2020 LATRICIA ARTEAGA MD Ot F90 .9 ATTENTION-DEFICIT HYPERACTIVITY DISORDER 01/17/2020 LATRICIA ARTEAGA MD Ot I95 .9 HYPOTENSION, UNSPECIFIED 01/17/2020 LATRICIA ARTEAGA MD Ot N28 .9 DISORDER OF KIDNEY AND URETER, UNSPECIFI 01/17/2020 LATRICIA ARTEAGA MD Ot Z79 .4 OIL WELL LOGGER (CURRENT) USE OF INSULIN 01/17/2020 LATRICIA ARTEAGA MD Ot E10.65 TYPE 1 DIABETES MELLITUS WITH HYPERGLYCE 01/17/2020 LATRICIA ARTEAGA MD Ot E86 .0 DEHYDRATION 01/17/2020 LATRICIA ARTEAGA MD Ot E87 .1 HYPO-OSMOLALITY AND HYPONATREMIA 01/17/2020 LATRICIA ARTEAGA MD Ot E87 .2 ACIDOSIS 01/17/2020 LATRICIA ARTEAGA MD Ot E87 .5 HYPERKALEMIA 01/17/2020 LATRICIA ARTEAGA MD Ot 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 01/17/2020 LATRICIA ARTEAGA MD Ot F20 .0 PARANOID SCHIZOPHRENIA 01/17/2020 LATRICIA ARTEAGA MD Ot F25 .0 SCHIZOAFFECTIVE DISORDER, BIPOLAR TYPE 01/17/2020 LATRICIA ARTEAGA MD Ot F25 .9 SCHIZOAFFECTIVE DISORDER, UNSPECIFIED 01/17/2020 LATRICIA ARTEAGA MD Ot F31 .9 BIPOLAR DISORDER, UNSPECIFIED 01/17/2020 LATRICIA ARTEAGA MD Ot F41 .9 ANXIETY DISORDER, UNSPECIFIED 01/17/2020 LATRICIA ARTEAGA MD Ot F90 .9 ATTENTION-DEFICIT HYPERACTIVITY DISORDER 01/17/2020 LATRICIA ARTEAGA MD Ot I95 .2 HYPOTENSION DUE TO DRUGS 01/17/2020 LATRICIA ARTEAGA MD Ot I95 .9 HYPOTENSION, UNSPECIFIED 01/17/2020 LATRICIA ARTEAGA MD Ot N28 .9 DISORDER OF KIDNEY AND URETER, UNSPECIFI 01/17/2020 LATRICIA ARTEAGA MD Ot T42.75XA ADVERSE EFFECT OF UNSP ANTIEPLPTC AND SE 01/17/2020 LATRICIA ARTEAGA MD Ot Z79 .4 HALF-WAY (CURRENT) USE OF INSULIN 02/14/2020 MOE SOLITARIO APRN Ot E10 .9 TYPE 1 DIABETES MELLITUS WITHOUT COMPLIC 02/14/2020 MOE SOLITARIO APRN Ot F20 .9 SCHIZOPHRENIA, UNSPECIFIED 02/14/2020 MOE SOLITARIO J FRUIT PACKER Ot F31 .9 BIPOLAR DISORDER, UNSPECIFIED 02/14/2020, MOE Roman APRN Ot F41 .9 ANXIETY DISORDER, UNSPECIFIED 02/14/2020 ALTAF, MOE Roman APRN Ot R20 .0 ANESTHESIA OF SKIN 02/14/2020 ALTAF, MOE Roman APRN Ot R20 .2 PARESTHESIA OF SKIN 02/14/2020 SOLITARIO, MOE Roman APRN Ot R43 .9 UNSPECIFIED DISTURBANCES OF SMELL AND TA 02/14/2020 SOLITARIO, MOE Roman APRN Ot R68 .2 DRY MOUTH, UNSPECIFIED 02/14/2020, MOE Roman APRN Ot R68.83 CHILLS (WITHOUT FEVER) 02/14/2020SOLITARIO, MOE Roman APRN Ot Z77.22 CNTCT W AND EXPSR TO ENVIRON TOBACCO SMO 02/14/2020 ALTAF, MOE Roman APRN Ot Z79 .4 HALF-WAY (CURRENT) USE OF INSULIN 02/14/2020 ALTAF, MOE Roman APRN Ot Z82.49 FAMILY HX OF ISCHEM HEART DIS AND OTH DI 02/23/2020 ALTAF, MOE Roman APRN Ot E10 .9 TYPE 1 DIABETES MELLITUS WITHOUT COMPLIC 02/23/2020SOLITARIO, MEO Roman APRN Ot F15.10 OTHER STIMULANT ABUSE, UNCOMPLICATED 02/23/2020 ALTAF, MOE Roman APRN Ot F20 .9 SCHIZOPHRENIA, UNSPECIFIED 02/23/2020SOLITARIO, MOE Roman APRN Ot F31 .9 BIPOLAR DISORDER, UNSPECIFIED 02/23/2020SOLITARIO, MOE Roman APRN Ot F41 .0 PANIC DISORDER [EPISODIC PAROXYSMAL ANXI 02/23/2020 ALTAF, MOE Roman APRN Ot F41 .9 ANXIETY DISORDER, UNSPECIFIED 02/23/2020SOLITARIO, MOE Roman APRN Ot F90 .9 ATTENTION-DEFICIT HYPERACTIVITY DISORDER 02/23/2020 MOE SOLITARIO APRN Ot Z79 .4 HALF-WAY (CURRENT) USE OF INSULIN 02/23/2020 ALTAF, MOE Roman APRN Ot Z79.899 OTHER OIL WELL LOGGER (CURRENT) DRUG THERAPY 02/23/2020 ALTAF, MOE Roman APRN Ot Z86.14 PERSONAL HISTORY OF METHICILLIN RESIS ST 02/28/2020 ALTAF, MOE Roman APRN Ot E10 .9 TYPE 1 DIABETES MELLITUS WITHOUT COMPLIC 02/28/2020 ALTAF, PETER J FRUIT PACKER Ot F15.10 OTHER STIMULANT ABUSE, UNCOMPLICATED 02/28/2020 MOE SOLITARIO APRN Ot F20 .9 SCHIZOPHRENIA, UNSPECIFIED 02/28/2020 MOE SOLITARIO FRUIT PACKER Ot F31 .9 BIPOLAR DISORDER, UNSPECIFIED 02/28/2020 MOE SOLITARIO FRUIT PACKER Ot F41 .0 PANIC DISORDER [EPISODIC PAROXYSMAL ANXI 02/28/2020 MOE SOLITARIO FRUIT PACKER Ot F41 .9 ANXIETY DISORDER, UNSPECIFIED 02/28/2020 MOE SOLITARIO APRN Ot F90 .9 ATTENTION-DEFICIT HYPERACTIVITY DISORDER 02/28/2020 MOE SOLITARIO FRUIT PACKER Ot Z79 .4 HALF-WAY (CURRENT) USE OF INSULIN 02/28/2020 MOE SOLITARIO FRUIT PACKER Ot Z79.899 OTHER OIL WELL LOGGER (CURRENT) DRUG THERAPY 02/28/2020 MOE SOLITARIO APRN Ot Z86.14 PERSONAL HISTORY OF METHICILLIN RESIS ST Procedures Code Description [place] [address] A1C (IN-HOUSE) 09/19/2012 81606 ROUT INE VENIPUNCTURE 09/21/2012 19209 MICR O ALBUMIN-IN HOUSE 09/21/2012 85086 CBC 09/21/2012 35315 LIPI D PANEL 09/21/2012 35463 CMP 09/21/2012 [id number] GF R CALC (RESULT ONLY) 09/21/2012 87407 A1C (IN-HOUSE) 12/24/2012 62732 A1C (IN-HOUSE) 05/24/2013 91822 ROUT INE VENIPUNCTURE 05/27/2013 40013 CBC 05/27/2013 81590 CMP 05/27/2013 77349 LIPI D PANEL 05/27/2013 [id number] GF R CALC (RESULT ONLY) 05/27/2013 49029 RA FACTOR 05/27/2013 70036 MICR O ALBUMIN-IN HOUSE 09/16/2013 07680 A1C (IN-HOUSE) 09/16/2013 37060 PSYC H DIAGNOSTIC EVALUATION 01/24/2014 58819 A1C (IN-HOUSE) 02/03/2014 32282 PSYT X PT&/FAMILY 45 MINUTES 02/17/2014 25860 PSYT X PT&/FAMILY 30 MINUTES 03/14/2014 65642 PSYT X PT&/FAMILY 30 MINUTES 03/26/2014 87817 PSYT X PT&/FAMILY 30 MINUTES 03/28/2014 68985 PSYT X PT&/FAMILY 30 MINUTES 03/28/2014 76955 A1C (IN-HOUSE) 05/21/2014 Results Test Result Range Complete blood count (CBC) with automate d white blood cell (WBC) differential - 01/16/20 00:14 Blood leukocytes automated count (number/volume) 10.6 10*3/uL 4.3-11.0 Blood erythrocytes automated count (number/volume) 4.34 10*6/uL 4.35-5.85 Venous blood hemoglobin measurement (mass/volume) 13.6 g/dL 13.3-17.7 Blood hematocrit (volume fraction) 39 % 40-54 Automated erythrocyte mean corpuscular volume 89 [ foz_us] 80-99 Automated erythrocyte mean corpuscular h emoglobin (mass per erythrocyte) 31 pg 25-34 Automated erythrocyte mean corpuscular h emoglobin concentration measurement (mass/volume) 35 g/dL 32-36 Automated erythrocyte distribution width ratio 13. 8 % 10.0- 14.5 Automated blood platelet count (count/volume) 310 10*3/uL 130-400 Automated blood platelet mean volume measurement 11.1 [foz_us] 7.4-10.4 Automated blood neutrophils/100 leukocytes 62 % 42-75 Automated blood lymphocytes/100 leukocytes 28 % 12-44 Blood monocytes/100 leukocytes 6 % 0-12 Automated blood eosinophils/100 leukocytes 3 % 0-10 Automated blood basophils/100 leukocytes 1 % 0-10 Blood neutrophils automated count (number/volume) 6.6 10*3 1.8-7.8 Blood lymphocytes automated count (number/volume) 2.9 10*3 1.0-4.0 Blood monocytes automated count (number/volume) 0. 6 10*3 0.0-1.0 Automated eosinophil count 0.3 10*3/uL 0 .0-0.3 Automated blood basophil count (count/volume) 0.1 10*3/uL 0.0-0.1 Comprehensive metabolic panel - 01/16/20 00:14 Serum or plasma sodium measurement (moles/volume) 131 mmol/L 135-145 Serum or plasma potassium measurement (moles/volume) 5.3 mmol/L 3.6-5.0 Serum or plasma chloride measurement (moles/volume) 98 mmol/L 98-107 Carbon dioxide 19 mmol/L 21-32 Serum or plasma anion gap determination (moles/volume) 14 mmol/L 5-14 Serum or plasma urea nitrogen measurement (mass/volume ) 20 mg/dL 7-18 Serum or plasma creatinine measurement (mass/volume) 1.38 mg/dL 0.60-1.30 Serum or plasma urea nitrogen/creatinine mass ratio 14 NRG Serum or plasma creatinine measurement w ith calculation of estimated glomerular filtration rate 57 NRG Serum or plasma glucose measurement (mass/volume) 732 mg/dL 70-105 Serum or plasma calcium measurement (mass/volume) 9.2 mg/dL 8.5-10.1 Serum or plasma total bilirubin measurement (mass/volu me) 1.1 mg/dL 0.1-1.0 Serum or plasma alkaline phosphatase nemo surement (enzymatic activity/volume) 114 U/L 40-136 Serum or plasma aspartate aminotransfera se measurement (enzymatic activity/volume) 19 U/L 5-34 Serum or plasma alanine aminotransferase measurement (enzymatic activity/volume) 23 U/L 0-55 Serum or plasma protein measurement (mass/volume) 6.8 g/dL 6.4-8.2 Serum or plasma albumin measurement (mass/volume) 3.9 g/dL 3.2-4.5 CALCIUM CORRECTED 9.3 mg/dL 8.5-10.1 Magnesium - 01/16/20 00:14 Magnesium 1.9 mg/dL 1.6-2.4 Serum or plasma amylase measurement (enz ymatic activity/volume) - 01/16/20 00:14 Serum or plasma amylase measurement (enzymatic activit y/volume) 29 U/L 25-125 Lipase - 01/16/20 00:14 Lipase 45 U/L 8-78 Serum or plasma thyrotropin measurement by detection limit <=0.05 miu/l (units/volume) - 01/16/20 00:14 Serum or plasma thyrotropin measurement by detection limit <=0.05 miu/l (units/volume) 1.25 u[iU]/mL 0.35-4.94 Serum or plasma acetaminophen measuremen t (mass/volume) - 01/16/20 00:14 Serum or plasma acetaminophen measurement (mass/volume ) < ug/mL 10-30 PT panel in platelet poor plasma by coag ulation assay - 01/16/20 00:14 Prothrombin time (PT) in platelet poor plasma by coagu lation assay 13.8 s 12.2-14.7 INR in platelet poor plasma or blood by coagulation as say 1.0 0.8-1.4 Activated partial thromboplastin time (a PTT) in platelet poor plasma bycoagulation assay - 01/16/20 00:14 Activated partial thromboplastin time (a PTT) in platelet poor plasma bycoagulation assay 27 s 24-35 Serum or plasma ethanol measurement (mas s/volume) - 01/16/20 00:14 Serum or plasma ethanol measurement (mass/volume) < mg/dL <10 Capillary blood glucose measurement by g lucometer (mass/volume) - 01/16/20 00:16 Capillary blood glucose measurement by glucometer (mas s/volume) > mg/dL 70-110 Arterial blood gas measurement - 0 00:20 Blood pCO2 27 mm[Hg] 35-45 Blood pO2 156 mm[Hg] 79-93 Arterial blood bicarbonate measurement (moles/volume) 21 mmol/L 23-27 Arterial blood base excess by calculation -1.5 mmo l/L -2.5-2.5 Arterial blood oxygen saturation measurement 100 % 94-100 * Inhaled oxygen flow rate ROOM AIR NRG Arterial blood pH measurement with patient temperature correction 7.51 7.37-7.43 Arterial blood carbon dioxide, total measurement (mole s/volume) 22.1 mmol/L 21.0-31.0 Body site RT RADIAL NRG Assessment of wrist artery patency prior to arterial p uncture P NRG Setting of ventilation mode NO NR G Measurement of body temperature 36.3 NRG Blood lactic acid measurement (moles/vol ume) - 01/16/20 00:28 Blood lactic acid measurement (moles/volume) 3.42 mmol/L 0.50-2.00 Complete urinalysis with reflex to cultu re - 01/16/20 01:05 Urine color determination YELLOW NRG Urine clarity determination CLEAR NR G Urine pH measurement by test strip 6.5 5-9 Specific gravity of urine by test strip <= 1.016-1.022 Urine protein assay by test strip, semi-quantitative NEGATIVE NEGATIVE Urine glucose detection by automated test strip 3+ NEGATIVE Erythrocytes detection in urine sediment by light micr oscopy NEGATIVE NEGATIVE Urine ketones detection by automated test strip NE GATIVE NEGATIVE Urine nitrite detection by test strip NEGATIVE NEGATIVE Urine total bilirubin detection by test strip NEGA TIVE NEGATIVE Urine urobilinogen measurement by automated test strip (mass/volume) 0.2 mg/dL < = 1.0 Urine leukocyte esterase detection by dipstick NEG ATIVE NEGATIVE Automated urine sediment erythrocyte cou nt by microscopy (number/high power field) [HPF] NRG Automated urine sediment leukocyte count by microscopy (number/high power field) NONE NRG Bacteria detection in urine sediment by light microsco py NEGATIVE NRG Crystals detection in urine sediment by light microsco py NONE NRG Casts detection in urine sediment by light microscopy NONE NRG Mucus detection in urine sediment by light microscopy NEGATIVE NRG Complete urinalysis with reflex to culture NO NRG Urine drug screening test - 01/16/20 01: 05 Urine phencyclidine detection by screening method NEGATIVE NEGATIVE Urine benzodiazepines detection by screening method NEGATIVE NEGATIVE Urine cocaine detection NEGATIVE NEGATI VE Urine amphetamines detection by screening method P OSITIVE NEGATIVE Urine methamphetamine detection by screening method NEGATIVE NEGATIVE Urine cannabinoids detection by screening method P OSITIVE NEGATIVE Urine opiates detection by screening method NEGATI VE NEGATIVE Urine barbiturates detection NEGATIVE N EGATIVE Screening urine tricyclic antidepressants detection NEGATIVE NEGATIVE Urine methadone detection by screening method NEGA TIVE NEGATIVE Urine oxycodone detection NEGATIVE NEGA TIVE Urine propoxyphene detection NEGATIVE N EGATIVE Capillary blood glucose measurement by g lucometer (mass/volume) - 01/16/20 01:28 Capillary blood glucose measurement by glucometer (mas s/volume) 318 mg/dL 70-110 Capillary blood glucose measurement by g lucometer (mass/volume) - 01/16/20 01:50 Capillary blood glucose measurement by glucometer (mas s/volume) 181 mg/dL 70-110 Methicillin resistant Staphylococcus aur eus (MRSA) screening culture - 01/16/20 02:16 Methicillin resistant Staphylococcus aureus (MRSA) scr eening culture NEG NRG Automated blood complete blood count (he mogram) panel - 01/16/20 02:32 Blood leukocytes automated count (number/volume) 9.8 10*3/uL 4.3-11.0 Blood erythrocytes automated count (number/volume) 4.13 10*6/uL 4.35-5.85 Venous blood hemoglobin measurement (mass/volume) 13.0 g/dL 13.3-17.7 Blood hematocrit (volume fraction) 37 % 40-54 Automated erythrocyte mean corpuscular volume 89 [ foz_us] 80-99 Automated erythrocyte mean corpuscular h emoglobin (mass per erythrocyte) 31 pg 25-34 Automated erythrocyte mean corpuscular h emoglobin concentration measurement (mass/volume) 35 g/dL 32-36 Automated erythrocyte distribution width ratio 13. 7 % 10.0- 14.5 Automated blood platelet count (count/volume) 284 10*3/uL 130-400 Automated blood platelet mean volume measurement 10.9 [foz_us] 7.4-10.4 Serum or plasma lactate measurement (mol es/volume) - 01/16/20 02:32 Serum or plasma lactate measurement (moles/volume) 1.30 mmol/L 0.50-2.00 Whole blood basic metabolic panel - 12/20 04/09 02:32 Serum or plasma sodium measurement (moles/volume) 142 mmol/L 135-145 Serum or plasma potassium measurement (moles/volume) 4.1 mmol/L 3.6-5.0 Serum or plasma chloride measurement (moles/volume) 110 mmol/L 98-107 Carbon dioxide 22 mmol/L 21-32 Serum or plasma anion gap determination (moles/volume) 10 mmol/L 5-14 Serum or plasma urea nitrogen measurement (mass/volume ) 19 mg/dL 7-18 Serum or plasma creatinine measurement (mass/volume) 0.81 mg/dL 0.60-1.30 Serum or plasma urea nitrogen/creatinine mass ratio 23 NRG Serum or plasma creatinine measurement w ith calculation of estimated glomerular filtration rate > NRG Serum or plasma glucose measurement (mass/volume) 85 mg/dL 70-105 Serum or plasma calcium measurement (mass/volume) 9.0 mg/dL 8.5-10.1 Serum or plasma phosphate measurement (m ass/volume) - 01/16/20 02:32 Serum or plasma phosphate measurement (mass/volume) 2.3 mg/dL 2.3-4.7 Magnesium - 01/16/20 02:32 Magnesium 2.0 mg/dL 1.6-2.4 Hemoglobin A1c measurement - 01/16/20 02 :32 Blood hemoglobin A1C measurement (mass/volume) 7.3 % 4.0-5.6 MEAN BLOOD GLUCOSE 163 % <=126 Capillary blood glucose measurement by g lucometer (mass/volume) - 01/16/20 02:43 Capillary blood glucose measurement by glucometer (mas s/volume) 97 mg/dL 70-110 Capillary blood glucose measurement by g lucometer (mass/volume) - 01/16/20 03:54 Capillary blood glucose measurement by glucometer (mas s/volume) 156 mg/dL 70-110 Capillary blood glucose measurement by g lucometer (mass/volume) - 01/16/20 04:40 Capillary blood glucose measurement by glucometer (mas s/volume) 125 mg/dL 70-110 Capillary blood glucose measurement by g lucometer (mass/volume) - 01/16/20 05:41 Capillary blood glucose measurement by glucometer (mas s/volume) 122 mg/dL 70-110 Capillary blood glucose measurement by g lucometer (mass/volume) - 01/16/20 07:50 Capillary blood glucose measurement by glucometer (mas s/volume) 115 mg/dL 70-110 Capillary blood glucose measurement by g lucometer (mass/volume) - 01/16/20 09:48 Capillary blood glucose measurement by glucometer (mas s/volume) 154 mg/dL 70-110 Capillary blood glucose measurement by g lucometer (mass/volume) - 01/16/20 12:07 Capillary blood glucose measurement by glucometer (mas s/volume) 127 mg/dL 70-110 Capillary blood glucose measurement by g lucometer (mass/volume) - 01/16/20 16:29 Capillary blood glucose measurement by glucometer (mas s/volume) 116 mg/dL 70-110 Capillary blood glucose measurement by g lucometer (mass/volume) - 01/16/20 19:56 Capillary blood glucose measurement by glucometer (mas s/volume) 162 mg/dL 70-110 Capillary blood glucose measurement by g lucometer (mass/volume) - 01/16/20 23:33 Capillary blood glucose measurement by glucometer (mas s/volume) 242 mg/dL 70-110 Complete blood count (CBC) with automate d white blood cell (WBC) differential - 01/17/20 03:17 Blood leukocytes automated count (number/volume) 8.0 10*3/uL 4.3-11.0 Blood erythrocytes automated count (number/volume) 4.13 10*6/uL 4.35-5.85 Venous blood hemoglobin measurement (mass/volume) 12.8 g/dL 13.3-17.7 Blood hematocrit (volume fraction) 38 % 40-54 Automated erythrocyte mean corpuscular volume 92 [ z_us] 80-99 Automated erythrocyte mean corpuscular h emoglobin (mass per erythrocyte) 31 pg 25-34 Automated erythrocyte mean corpuscular h emoglobin concentration measurement (mass/volume) 34 g/dL 32-36 Automated erythrocyte distribution width ratio 13. 8 % 10.0- 14.5 Automated blood platelet count (count/volume) 233 10*3/uL 130-400 Automated blood platelet mean volume measurement 10.8 [foz_us] 7.4-10.4 Automated blood neutrophils/100 leukocytes 46 % 42-75 Automated blood lymphocytes/100 leukocytes 44 % 12-44 Blood monocytes/100 leukocytes 6 % 0-12 Automated blood eosinophils/100 leukocytes 4 % 0-10 Automated blood basophils/100 leukocytes 1 % 0-10 Blood neutrophils automated count (number/volume) 3.6 10*3 1.8-7.8 Blood lymphocytes automated count (number/volume) 3.5 10*3 1.0-4.0 Blood monocytes automated count (number/volume) 0. 5 10*3 0.0-1.0 Automated eosinophil count 0.3 10*3/uL 0 .0-0.3 Automated blood basophil count (count/volume) 0.1 10*3/uL 0.0-0.1 Whole blood basic metabolic panel - 12/20 05/10 03:17 Serum or plasma sodium measurement (moles/volume) 138 mmol/L 135-145 Serum or plasma potassium measurement (moles/volume) 3.7 mmol/L 3.6-5.0 Serum or plasma chloride measurement (moles/volume) 108 mmol/L 98-107 Carbon dioxide 22 mmol/L 21-32 Serum or plasma anion gap determination (moles/volume) 8 mmol/L 5-14 Serum or plasma urea nitrogen measurement (mass/volume ) 11 mg/dL 7-18 Serum or plasma creatinine measurement (mass/volume) 0.71 mg/dL 0.60-1.30 Serum or plasma urea nitrogen/creatinine mass ratio 15 NRG Serum or plasma creatinine measurement w ith calculation of estimated glomerular filtration rate > NRG Serum or plasma glucose measurement (mass/volume) 59 mg/dL 70-105 Serum or plasma calcium measurement (mass/volume) 8.1 mg/dL 8.5-10.1 Serum or plasma phosphate measurement (m ass/volume) - 01/17/20 03:17 Serum or plasma phosphate measurement (mass/volume) 3.0 mg/dL 2.3-4.7 Magnesium - 01/17/20 03:17 Magnesium 1.8 mg/dL 1.6-2.4 Capillary blood glucose measurement by g lucometer (mass/volume) - 01/17/20 03:28 Capillary blood glucose measurement by glucometer (mas s/volume) 60 mg/dL 70-110 Capillary blood glucose measurement by g lucometer (mass/volume) - 01/17/20 04:04 Capillary blood glucose measurement by glucometer (mas s/volume) 108 mg/dL 70-110 Capillary blood glucose measurement by g lucometer (mass/volume) - 01/17/20 08:15 Capillary blood glucose measurement by glucometer (mas s/volume) 207 mg/dL 70-110 Capillary blood glucose measurement by g lucometer (mass/volume) - 01/17/20 12:35 Capillary blood glucose measurement by glucometer (mas s/volume) 118 mg/dL 70-110 Complete blood count (CBC) with automate d white blood cell (WBC) differential - 02/12/20 18:30 Blood leukocytes automated count (number/volume) 12.1 10*3/uL 4.3-11.0 Blood erythrocytes automated count (number/volume) 4.71 10*6/uL 4.35-5.85 Venous blood hemoglobin measurement (mass/volume) 14.7 g/dL 13.3-17.7 Blood hematocrit (volume fraction) 42 % 40-54 Automated erythrocyte mean corpuscular volume 88 [ foz_us] 80-99 Automated erythrocyte mean corpuscular h emoglobin (mass per erythrocyte) 31 pg 25-34 Automated erythrocyte mean corpuscular h emoglobin concentration measurement (mass/volume) 35 g/dL 32-36 Automated erythrocyte distribution width ratio 12. 3 % 10.0- 14.5 Automated blood platelet count (count/volume) 349 10*3/uL 130-400 Automated blood platelet mean volume measurement 10.8 [foz_us] 7.4-10.4 Automated blood neutrophils/100 leukocytes 54 % 42-75 Automated blood lymphocytes/100 leukocytes 35 % 12-44 Blood monocytes/100 leukocytes 6 % 0-12 Automated blood eosinophils/100 leukocytes 4 % 0-10 Automated blood basophils/100 leukocytes 1 % 0-10 Blood neutrophils automated count (number/volume) 6.6 10*3 1.8-7.8 Blood lymphocytes automated count (number/volume) 4.2 10*3 1.0-4.0 Blood monocytes automated count (number/volume) 0. 8 10*3 0.0-1.0 Automated eosinophil count 0.5 10*3/uL 0 .0-0.3 Automated blood basophil count (count/volume) 0.1 10*3/uL 0.0-0.1 Comprehensive metabolic panel - 02/12/20 18:30 Serum or plasma sodium measurement (moles/volume) 138 mmol/L 135-145 Serum or plasma potassium measurement (moles/volume) 3.2 mmol/L 3.6-5.0 Serum or plasma chloride measurement (moles/volume) 105 mmol/L 98-107 Carbon dioxide 22 mmol/L 21-32 Serum or plasma anion gap determination (moles/volume) 11 mmol/L 5-14 Serum or plasma urea nitrogen measurement (mass/volume ) 14 mg/dL 7-18 Serum or plasma creatinine measurement (mass/volume) 0.84 mg/dL 0.60-1.30 Serum or plasma urea nitrogen/creatinine mass ratio 17 NRG Serum or plasma creatinine measurement w ith calculation of estimated glomerular filtration rate > NRG Serum or plasma glucose measurement (mass/volume) 46 mg/dL 70-105 Serum or plasma calcium measurement (mass/volume) 8.9 mg/dL 8.5-10.1 Serum or plasma total bilirubin measurement (mass/volu me) 0.4 mg/dL 0.1-1.0 Serum or plasma alkaline phosphatase nemo surement (enzymatic activity/volume) 81 U/L 40-136 Serum or plasma aspartate aminotransfera se measurement (enzymatic activity/volume) 23 U/L 5-34 Serum or plasma alanine aminotransferase measurement (enzymatic activity/volume) 21 U/L 0-55 Serum or plasma protein measurement (mass/volume) 6.8 g/dL 6.4-8.2 Serum or plasma albumin measurement (mass/volume) 3.8 g/dL 3.2-4.5 CALCIUM CORRECTED 9.1 mg/dL 8.5-10.1 Encounters ACCT No. Visit Date/Time Discharge Status Pt. Type Provider Facility Loc./Unit Complaint [id number] 02/25/2020 14:00:00 02/25/2020 23:59: 59 CLS Outpatient NAHUN NAIK [facility] [place] [id number] 02/23/2020 21:27:00 020 22:38:00 DIS Emergency MOE SOLITARIO APRN [facility] ER ANXIETY [id number] 02/12/2020 18:15:00 020 18:54:00 DIS Outpatient MOE SOLITARIO APRN [facility] ER LEFT HAND NUMB,[place] [id number] 01/16/2020 00:55:00 14:00:00 DIS Inpatient JENNI SOLER, LATRICIA Garcia [facility] 4TH UNCONTROLLED IDDM/TYPE 1;ACUTE PSYCHOSIS;ELECTROLY [id number] 02/10/2016 02:18:00 016 16:58:00 DIS Inpatient EDMOND SOLER, SERA Webster [facility] ICU SUICIDE ATTEMPT,INSULIN OVERDOSE,HYPERGLYCEMIA [id number] 12/02/2013 12:16:00 014 15:02:00 DIS Emergency BARRIE DO, TURNER K Vi [facility] ER ABDOMINAL PAIN [id number] 04/04/2020 03:04:[address] Emergency AUBREY SOLER, EMELI Ma [facility] ER LOW BLOOD SUGAR [id number] 09/05/2014 11:09:00 09/05/2014 23:59: 59 CLS Outpatient CHRISTOPHER VILLALOBOS APRN [id number] 05/21/2014 09:59:00 05/21/2014 23:59: 59 CLS Outpatient CHRISTOPHER VILLALOBOS APRN [id number] 03/14/2014 15:22:00 03/14/2014 23:59: 59 CLS Outpatient CORDELL VILLANUEVA [id number] 03/03/2014 08:32:00 03/03/2014 23:59: 59 CLS Outpatient CHRISTOPHER VILLALOBOS APRN [id number] 02/14/2014 16:03:00 02/14/2014 23:59: 59 CLS Outpatient CORDELL VILLANUEVA [id number] 02/03/2014 16:18:00 02/03/2014 23:59: 59 CLS Outpatient CHRISTOPHER VILLALOBOS APRN [id number] 01/24/2014 13:38:00 01/24/2014 23:59: 59 CLS Outpatient CORDELL VILLANUEVA [id number] 11/15/2013 14:34:00 11/15/2013 23:59: 59 CLS Outpatient CHRISTOPHER VILLALOBOS APRN [id number] 10/16/2013 10:27:00 10/16/2013 23:59: 59 CLS Outpatient CHRISTOPHER VILLALOBOS APRN [id number] 09/16/2013 14:15:00 09/16/2013 23:59: 59 CLS Outpatient CHRISTOPHER VILLALOBOS APRN [id number] 07/31/2013 14:46:00 07/31/2013 23:59: 59 CLS Outpatient CHRISTOPHER VILLALOBOS APRN [id number] 07/03/2013 15:04:00 07/03/2013 23:59: 59 CLS Outpatient CHRISTOPHER VILLALOBOS APRN [id number] 05/29/2013 08:38:00 05/29/2013 23:59: 59 CLS Outpatient [id number] 05/27/2013 09:06:00 05/27/2013 23:59: 59 CLS Outpatient HI [facility] DDS [id number] 05/24/2013 14:15:00 05/24/2013 23:59: 59 CLS Outpatient CHRISTOPHER VILLALOBOS APRN [id number] 12/24/2012 09:40:00 12/24/2012 23:59: 59 CLS Outpatient CHRISTOPHER VILLALOBOS APRN [id number] 11/23/2012 10:20:00 11/23/2012 23:59: 59 CLS Outpatient CHRISTOPHER VILLALOBOS APRN [id number] 10/24/2012 13:51:00 10/24/2012 23:59: 59 CLS Outpatient CHRISTOPHER VILLALOBOS APRN [id number] 10/10/2012 09:46:00 10/10/2012 23:59: 59 CLS Outpatient CHRISTOPHER VILLALOBOS APRN [id number] 09/21/2012 08:22:00 09/21/2012 23:59: 59 CLS Outpatient CHRISTOPHER VILLALOBOS APRN [id number] 09/19/2012 11:01:00 09/19/2012 23:59: 59 CLS Outpatient CHRISTOPHER VILLALOBOS APRN [id number] 12/05/2012 16:09:00 Document Registration
[2020-04-04 03:27] LABS: BASOPHILS # (AUTO) 0.1 10^3/uL (0.0-0.1); BASOPHILS % (AUTO) 0 % (0-10); EOSINOPHILS # (AUTO) 0.2 10^3/uL (0.0-0.3); EOSINOPHILS % (AUTO) 1 % (0-10); HEMATOCRIT 38 % (40-54); HEMOGLOBIN 13.4 G/DL (13.3-17.7); LYMPHOCYTES # (AUTO) 2.1 X 10^3 (1.0-4.0); LYMPHOCYTES % (AUTO) 16 % (12-44); MEAN CORPUSCULAR HEMOGLOBIN 31 PG (25-34); MEAN CORPUSCULAR HGB CONC 36 G/DL (32-36); MEAN CORPUSCULAR VOLUME 86 FL (80-99); MEAN PLATELET VOLUME 10.7 FL (7.4-10.4); MONOCYTES % (AUTO) 8 % (0-12); NEUTROPHILS # (AUTO) 10.2 X 10^3 (1.8-7.8); NEUTROPHILS % (AUTO) 75 % (42-75); PLATELET COUNT 319 10^3/uL (130-400); RED CELL DISTRIBUTION WIDTH 12.3 % (10.0-14.5); WHITE BLOOD COUNT 13.6 10^3/uL (4.3-11.0)
[2020-04-04 03:29] LABS: INR 1.1 (0.8-1.4); PROTHROMBIN TIME PATIENT 14.1 SEC (12.2-14.7)
[2020-04-04 03:30] LABS: ALBUMIN 3.8 GM/DL (3.2-4.5); CHLORIDE 104 MMOL/L (98-107); POTASSIUM 3.4 MMOL/L (3.6-5.0); SODIUM 138 MMOL/L (135-145)
[2020-04-04 03:31] LABS: CALCIUM 8.8 MG/DL (8.5-10.1)
[2020-04-04 03:32] LABS: GLUCOSE 158 MG/DL (70-105); TOTAL PROTEIN 6.5 GM/DL (6.4-8.2)
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
[2020-04-04 03:33] LABS: CARBON DIOXIDE 24 MMOL/L (21-32)
[2020-04-04 03:34] LABS: BILIRUBIN,TOTAL 0.4 MG/DL (0.1-1.0)
[2020-04-04 03:36] LABS: ALKALINE PHOSPHATASE 75 U/L (40-136); CREATININE SERUM 0.96 MG/DL (0.60-1.30); GFR ESTIMATED > 60
[2020-04-04 03:37] LABS: BUN/CREATININE RATIO 24
[2020-04-04 03:39] LABS: ALANINE AMINOTRANSFERASE 23 U/L (0-55)
[2020-04-04 05:42] VITALS: BP 135/69
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
== END 2020-04-04 05:45 | disposition home or self-care (01) ==
LOC: EDUNIT# 03:03 → ER 03:04
DX: S00.83XA Contusion of other part of head, initial encounter (principal); E10.649 Type 1 diabetes mellitus with hypoglycemia without coma; F15.10 Other stimulant abuse, uncomplicated; F17.210 Nicotine dependence, cigarettes, uncomplicated; F31.9 Bipolar disorder, unspecified; F41.9 Anxiety disorder, unspecified; F20.9 Schizophrenia, unspecified; Z79.4 Long term (current) use of insulin; Z82.49 Family history of ischemic heart disease and other diseases of the circulatory system; Y04.0XXA Assault by unarmed brawl or fight, initial encounter
CPT/HCPCS: 70450; 72125; 80053; 82962; 85025; 85610; 99283; G0480; 36415; 80320

== ENCOUNTER 2020-05-06 08:23 | Emergency (ER) | payer OTHER ==
[~2020-05-06] VITALS: Ht 175 cm; Wt 66.0 kg
[2020-05-06] MEDS ORDERED: LACTATED RINGERS 1,000 ML IV ONE (08:31)
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
[2020-05-06 08:44] LABS: HEMOGLOBIN 13.5 G/DL (13.3-17.7); WHITE BLOOD COUNT 7.6 10^3/uL (4.3-11.0)
[2020-05-06] MEDS ORDERED: fentaNYL INJECTION 100 MCG/2 ML AMP IVP ONE (08:45)
[2020-05-06] MEDS ORDERED: LORazepam INJ 2 MG/ML (ATIVAN) VIAL IVP ONE (08:45)
--- NOTE | 2020-05-06 08:49 | NUR ---
PPD HERE TO SPEAK TO PT
--- NOTE | 2020-05-06 08:53 | Diagnostic Imaging Report ---
Indication: Wrist pain AP, oblique and lateral views of the left wrist are obtained. FINDINGS: No acute fracture or dislocation is identified. No abnormal lytic or sclerotic focus is seen, and there is no radiopaque foreign body. IMPRESSION: No acute abnormality. Dictated by: Dictated on workstation # [id number]
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
[2020-05-06 08:59] LABS: ALBUMIN 3.9 GM/DL (3.2-4.5); CHLORIDE 106 MMOL/L (98-107); POTASSIUM 3.9 MMOL/L (3.6-5.0); SODIUM 140 MMOL/L (135-145)
[2020-05-06 09:00] LABS: CALCIUM 9.1 MG/DL (8.5-10.1)
[2020-05-06 09:01] LABS: GLUCOSE 77 MG/DL (70-105); TOTAL PROTEIN 6.5 GM/DL (6.4-8.2)
[2020-05-06 09:02] LABS: CARBON DIOXIDE 22 MMOL/L (21-32)
[2020-05-06 09:03] LABS: BILIRUBIN,TOTAL 0.4 MG/DL (0.1-1.0)
[2020-05-06 09:05] LABS: ALKALINE PHOSPHATASE 74 U/L (40-136); CREATININE SERUM 1.02 MG/DL (0.60-1.30); GFR ESTIMATED > 60
[2020-05-06 09:06] LABS: BILIRUBIN,DIRECT 0.2 MG/DL (0.0-0.3); BILIRUBIN,INDIRECT 0.2 MG/DL; BUN/CREATININE RATIO 18
[2020-05-06 09:08] LABS: ALANINE AMINOTRANSFERASE 21 U/L (0-55)
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
[2020-05-06] MEDS ORDERED: ONDA4TAB11 PO (10:06)
[2020-05-06] MEDS ORDERED: LIDOCAINE/EPI 2% 1:100,00 (XYLOCAINE) 20 ML VIAL ONE (10:08)
[2020-05-06] MEDS ORDERED: LIDOCAINE/EPI 2% 1:100,00 (XYLOCAINE) 20 ML VIAL INJ ONE (10:15)
[2020-05-06 11:05] VITALS: BP 110/78
== END 2020-05-06 11:05 | disposition home or self-care (01) ==
LOC: EDUNIT# 08:23 → ER 08:26
DX: S06.0X0A Concussion without loss of consciousness, initial encounter (principal); S01.01XA Laceration without foreign body of scalp, initial encounter; S40.022A Contusion of left upper arm, initial encounter; S63.502A Unspecified sprain of left wrist, initial encounter; E10.9 Type 1 diabetes mellitus without complications; F17.210 Nicotine dependence, cigarettes, uncomplicated; F20.9 Schizophrenia, unspecified; F31.9 Bipolar disorder, unspecified; F41.9 Anxiety disorder, unspecified; Z79.4 Long term (current) use of insulin; Z82.61 Family history of arthritis; Z82.49 Family history of ischemic heart disease and other diseases of the circulatory system; Y00.XXXA Assault by blunt object, initial encounter
CPT/HCPCS: 70450; 71045; 72125; 73060; 73110; 80048; 80076; 82550; 82962; 85027; 99284; G0480; 36415; 80320

== ENCOUNTER 2020-06-22 00:11 | Emergency (ER) | payer OTHER ==
[~2020-06-22] VITALS: Ht 176 cm; Wt 63.0 kg
[~2020-06-22 00:11] MED LIST changes: +ONDA4TAB11 PO
[2020-06-22] MEDS ORDERED: LACTATED RINGERS 1,000 ML IV ONE (00:21)
[2020-06-22] MEDS ORDERED: KETOROLAC 30 MG/ML VIAL IVP STA (00:21)
[2020-06-22 00:44] LABS: BILIRUBIN,URINE NEGATIVE (NEGATIVE); CLARITY,URINE CLEAR; COLOR,URINE YELLOW; GLUCOSE, URINE (UA) 3+ (NEGATIVE); KETONES,URINE NEGATIVE (NEGATIVE); LEUKOCYTE ESTERASE ,URINE NEGATIVE (NEGATIVE); NITRITE,URINE NEGATIVE (NEGATIVE); PH,URINE 5.5 (5-9); PROTEIN,URINE NEGATIVE (NEGATIVE)
[2020-06-22 00:46] LABS: BASOPHILS # (AUTO) 0.1 10^3/uL (0.0-0.1); BASOPHILS % (AUTO) 1 % (0-10); EOSINOPHILS # (AUTO) 0.3 10^3/uL (0.0-0.3); EOSINOPHILS % (AUTO) 4 % (0-10); HEMATOCRIT 37 % (40-54); HEMOGLOBIN 12.9 g/dL (13.3-17.7); LYMPHOCYTES % (AUTO) 34 % (12-44); MEAN CORPUSCULAR HEMOGLOBIN 31 pg (25-34); MEAN CORPUSCULAR HGB CONC 35 g/dL (32-36); MEAN CORPUSCULAR VOLUME 91 fL (80-99); MEAN PLATELET VOLUME 10.6 fL (9.0-12.2); MONOCYTES # (AUTO) 0.6 10^3/uL (0.0-1.0); MONOCYTES % (AUTO) 6 % (0-12); NEUTROPHILS # (AUTO) 4.8 10^3/uL (1.8-7.8); NEUTROPHILS % (AUTO) 55 % (42-75); PLATELET COUNT 267 10^3/uL (130-400); WHITE BLOOD COUNT 8.7 10^3/uL (4.3-11.0)
--- NOTE | 2020-06-22 00:46 | ED General ---
General Chief Complaint: Glucose Problems Stated Complaint: LOW BLOOD SUGAR Nursing Triage Note: PATIENT STATES BLOOD SUGAR UP TO 500 TODAY THIS EVENING WAS 38 DRANK SUGAR WATER, SANDWICH. PATIENT STATES ALSO THIS EVENING HE HAD TO URINATE. PATIENT STATES DID METH, 2 DAYS AGO, AND STATES HE IS MANIC. Nursing Sepsis Screen: No Definite Risk Source of Information: Patient, EMS Exam Limitations: No Limitations History of Present Illness Date Seen by Provider: Jun 22, 2020 Time Seen by Provider: 00:24 Initial Comments Here by EMS with report of right sided flank pain and blood sugar issues. Apparently he was seen in the clinic for pain that he thought was his ribs. That was in the last day or 2 but now it's more on the flank and he can't urinate. States he is having a hard time tonight and then realized that he felt like his blood sugar was low. He drank a cup of sugar water and then checked his blood sugar. He states his blood sugar was 38 at that time. He then drank another Sugar water and called EMS due to the pain. He reports that he has blood in his urine as well. He states he tried to go to the bathroom tonight but could not. Reports it hurts to try to urinate. Does have long history of diabetes but states that he did not does well on his insulin yesterday. He did ultimately take his doses but he was late after eating anything since why his blood sugar is low. Greater than 500 now per EMS. Denies recent fever, chills, sore throat, runny nose, nausea, vomiting or diarrhea. Denies chest pain or breathing problems. Does admit to methamphetamine 2 days ago. Timing/Duration: 1 Hour, Other (pain for the last few days) Severity: Moderate Associated Systoms: No Chest Pain, No Cough, No Fever/Chills, No Headaches, No Nausea/Vomiting, No Shortness of Air; Weakness Allergies and Home Medications Allergies Coded Allergies: No Known Drug Allergies (Unverified , 12/02/13) Home Medications Hydroxyzine HCl 50 Mg Tablet, 50 MG PO Q6H PRN for NAUSEA/VOMITING Prescribed by: MOE SOLITARIO on 02/23/20 2221 Insulin Aspart 300 Units/3 Ml Solution, 16 UNITS SQ AC, (Reported) Insulin Degludec 100 Unit/1 Ml Insuln.pen, 40 UNIT SQ HS, (Reported) Ondansetron 4 Mg Tab.rapdis, 4 MG PO Q6H PRN for NAUSEA/VOMITING Prescribed by: CHRISTINE ELLIOTT on 05/06/20 1006 Risperidone 1 Mg Tablet, 1 MG PO BID Prescribed by: LATRICIA ARTEAGA on 01/17/20 1006 Patient Home Medication List Home Medication List Reviewed: Yes Review of Systems Review of Systems Constitutional: see HPI; No chills, No fever EENTM: no symptoms reported Respiratory: No cough, No short of breath Cardiovascular: No chest pain, No edema Gastrointestinal: abdominal pain; No nausea, No vomiting Genitourinary: dysuria, hematuria Musculoskeletal: back pain, muscle pain Skin: No change in color; lesions (healing wound to left arm and back of head from 2 months ago) Psychiatric/Neurological: Denies Headache, Denies Weakness All Other Systems Reviewed Negative Unless Noted: Yes Past Hwqwplc-Ezypat-Tnhhgu Hx Past Med/Social Hx: Reviewed Nursing Past Med/Soc Hx Patient Social History Alcohol Use: Occasionally Uses Recreational Drug Use: Yes (LAST TIME PATIENT TOOK METH) Drug of Choice: meth and marijuana Smoking Status: Current Everyday Smoker Type Used: Cigarettes 2nd Hand Smoke Exposure: Yes Recent Foreign Travel: No Contact w/Someone Who Travel: No Recent Infectious Disease Expo: No Recent Hopitalizations: No Physical Abuse: No Sexual Abuse: No Mistreated: No Fear: No Immunizations Up To Date Tetanus Booster (TDap): Less than 5yrs Seasonal Allergies Seasonal Allergies: No Past Medical History Surgeries: Yes (I&D OF ABSCESS TO CHIN/NECK AREA) Respiratory: No Currently Using CPAP: No Currently Using BIPAP: No Cardiac: No Neurological: No Genitourinary: No Gastrointestinal: Yes (HEPATITIS) Liver Disease/Jaundice, Hepatitis Musculoskeletal: No Endocrine: Yes (TYPE 1 DIABETES) Diabetes, Insulin dep HEENT: No Cancer: No Psychosocial: Yes (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) ADD/ADHD, Anxiety, Bipolar, Schizophrenia, Depression Integumentary: Yes (HX OF MRSA) Blood Disorders: No Family Medical History Reviewed Nursing Family Hx Alcoholism G8 BROTHER Arthritis Asthma 19 MOTHER (copd & hypotention) Cardiovascular disease 19 FATHER (cva) Completed stroke 19 FATHER Hypercholesterolemia 19 FATHER G8 SISTER Hypertension 19 FATHER Thyroid disease G8 SISTER (hyperthyroid) Physical Exam Vital Signs Vital Signs - First Documented 06/22/20 00:13 Temp 36.5 Pulse 101 Resp 18 B/P (MAP) 173/85 (114) Pulse Ox 100 O2 Delivery Room Air Capillary Refill : Less Than 3 Seconds Height, Weight, BMI Height: 5'8.00" Weight: 162lbs. 1.6oz. 73.569184nt; 20.00 BMI Method:Stated General Appearance: WD/WN, Mild Distress HEENT: PERRL/EOMI, Pharynx Normal Neck: Non Tender, Supple Respiratory: Lungs Clear, Normal Breath Sounds Cardiovascular: Regular Rate, Rhythm, No Murmur Gastrointestinal: Non Tender, Soft Back: Normal Inspection, No CVA Tenderness, No Vertebral Tenderness Extremity: Normal Range of Motion, Non Tender Neurologic/Psychiatric: Alert, Oriented x3 Skin: Normal Color, Warm/Dry, Other (healing wound to the left arm approximately 1 x 6 cm that he states is old. Abrasions of the scalp posterior with bandage that he also states is from a couple months ago.) Progress/Results/Core Measures Suspected Sepsis Recent Fever Within 48 Hours: No Infection Criteria Present: None New/Unexplained Altered Menta: No Sepsis Screen: No Definite Risk SIRS Temperature: Pulse: 101 Respiratory Rate: 18 Laboratory Tests 06/22/20 00:35: White Blood Count 8.7 Blood Pressure 173 /85 Mean: 114 Laboratory Tests 06/22/20 00:35: Creatinine 1.00, Platelet Count 267, Total Bilirubin 0.2 Results/Orders Lab Results Laboratory Tests Test 06/22/20 00:30 06/22/20 00:35 06/22/20 01:25 Range/Units Urine Color YELLOW Urine Clarity CLEAR Urine pH 5.5 5-9 Urine Specific [place] 1.025 H 1.016-1.022 Urine Protein NEGATIVE NEGATIVE Urine Glucose (UA) 3+ H NEGATIVE Urine Ketones NEGATIVE NEGATIVE Urine Nitrite NEGATIVE NEGATIVE Urine Bilirubin NEGATIVE NEGATIVE Urine Urobilinogen 0.2 < = 1.0 MG/DL Urine Leukocyte Esterase NEGATIVE NEGATIVE Urine RBC (Auto) 1+ H NEGATIVE Urine RBC RARE /HPF Urine WBC NONE /HPF Urine Squamous Epithelial Cells RARE /HPF Urine Crystals NONE /LPF Urine Bacteria NEGATIVE /HPF Urine Casts NONE /LPF Urine Mucus NEGATIVE /LPF Urine Culture Indicated NO Urine Opiates Screen NEGATIVE NEGATIVE Urine Oxycodone Screen NEGATIVE NEGATIVE Urine Methadone Screen NEGATIVE NEGATIVE Urine Propoxyphene Screen NEGATIVE NEGATIVE Urine Barbiturates Screen NEGATIVE NEGATIVE Ur Tricyclic Antidepressants Screen NEGATIVE NEGATIVE Urine Phencyclidine Screen NEGATIVE NEGATIVE Urine Amphetamines Screen POSITIVE H NEGATIVE Urine Methamphetamines Screen POSITIVE H NEGATIVE Urine Benzodiazepines Screen NEGATIVE NEGATIVE Urine Cocaine Screen NEGATIVE NEGATIVE Urine Cannabinoids Screen NEGATIVE NEGATIVE White Blood Count 8.7 4.3-11.0 10^3/uL Red Blood Count 4.13 L 4.30-5.52 10^6/uL Hemoglobin 12.9 L 13.3-17.7 g/dL Hematocrit 37 L 40-54 % Mean Corpuscular Volume 91 80-99 fL Mean Corpuscular Hemoglobin 31 25-34 pg Mean Corpuscular Hemoglobin Concent 35 32-36 g/dL Red Cell Distribution Width 12.1 10.0-14.5 % Platelet Count 267 130-400 10^3/uL Mean Platelet Volume 10.6 9.0-12.2 fL Immature Granulocyte % (Auto) 0 % Neutrophils (%) (Auto) 55 42-75 % Lymphocytes (%) (Auto) 34 12-44 % Monocytes (%) (Auto) 6 0-12 % Eosinophils (%) (Auto) 4 0-10 % Basophils (%) (Auto) 1 0-10 % Neutrophils # (Auto) 4.8 1.8-7.8 10^3/uL Lymphocytes # (Auto) 3.0 1.0-4.0 10^3/uL Monocytes # (Auto) 0.6 0.0-1.0 10^3/uL Eosinophils # (Auto) 0.3 0.0-0.3 10^3/uL Basophils # (Auto) 0.1 0.0-0.1 10^3/uL Immature Granulocyte # (Auto) 0.0 0.0-0.1 10^3/uL Sodium Level 141 135-145 MMOL/L Potassium Level 3.6 3.6-5.0 MMOL/L Chloride Level 106 98-107 MMOL/L Carbon Dioxide Level 22 21-32 MMOL/L Anion Gap 13 5-14 MMOL/L Blood Urea Nitrogen 28 H 7-18 MG/DL Creatinine 1.00 0.60-1.30 MG/DL Estimat Glomerular Filtration Rate > 60 BUN/Creatinine Ratio 28 Glucose Level 112 H 70-105 MG/DL Calcium Level 8.7 8.5-10.1 MG/DL Corrected Calcium 8.9 8.5-10.1 MG/DL Total Bilirubin 0.2 0.1-1.0 MG/DL Aspartate Amino Transf (AST/SGOT) 42 H 5-34 U/L Alanine Aminotransferase (ALT/SGPT) 32 0-55 U/L Alkaline Phosphatase 92 40-136 U/L C-Reactive Protein High Sensitivity 0.12 0.00-0.50 MG/DL Total Protein 6.6 6.4-8.2 GM/DL Albumin 3.8 3.2-4.5 GM/DL Glucometer 122 H 70-110 MG/DL My Orders Orders - NASH ASTUDILLO MD Cbc With Automated Diff (06/22/20 00:21) Comprehensive Metabolic Panel (06/22/20 00:) Hs C Reactive Protein (06/22/20 00:21) Drug Screen Stat (Urine) (06/22/20 00:21) Ua Culture If Indicated (06/22/20:21) Ed Iv/Invasive Line Start (06/22/20 00:21) Lactated Ringers (Lr 1000 Ml Iv Solution (06/22/20 00:21) Ketorolac Injection (Toradol Injection) (06/22/20 00:21) Ct Abd/Pelvis Wo(Kidney Stone) (06/22/20 01:16) Accucheck Stat ONCE (06/22/20 01:19) Medications Given in ED Current Medications Medications Dose Ordered Sig/Andre Route Start Time Stop Time Status Last Admin Dose Admin Lactated Ringer's 1,000 ml @ 0 mls/hr Q0M ONCE IV 06/22/20 00:21 06/22/20 00:25 DC 06/22/20 00:55 0 MLS/HR Vital Signs/I&O 06/22/20 06/22/20 00:13 02:28 Temp 36.5 36.5 Pulse 101 89 Resp 18 18 B/P (MAP) 173/85 (114) 154/82 (114) Pulse Ox 100 100 O2 Delivery Room Air Room Air Capillary Refill : Less Than 3 Seconds Blood Pressure Mean: 114 Progress Note : Progress Note Seen and evaluated. IV, labs, UA, LR 1 L bolus and Toradol 30 mg IV ordered. Monitor patient. CT abdomen and pelvis kidney stone protocol ordered. 0215: CT complete. Labs reviewed. No significant findings and he is feeling better. CT results pending. Patient states he really needs to go because he has to be somewhere so that he doesn't get locked out and he needs to place to stay. We did discuss that I do not have the final results although I do not see kidney stones on the CT scan. He states he has a phone and we can call him. We will do that if there is abnormal results. Labs do not indicate any significant abnormalities. Discharged home with return precautions. Patient verbalize understanding instructions and agreement with plan. Diagnostic Imaging Diagonstic Imaging: CT Plain Films/CT/US/NM/MRI: abdomen, pelvis Comments Punctate nonobstructing nephrolithiasis right greater than left. No ureteral stone or obstructive uropathy. Nonspecific fat stranding and skin thickening in the left anterior lateral abdominal wall. Reviewed: Reviewed [place] Study, Reviewed by Me Departure Impression Primary Impression: Right lateral abdominal pain Disposition: 01 HOME, SELF-CARE Condition: Stable Departure-Patient Inst. Decision time for Depature: 02:18 Referrals: [facility] (PCP/Family) Primary Care Physician Patient Instructions: Severe Abdominal Pain, Adult (DC), Diabetes Type 1, Adult (DC) Add. Discharge Instructions: All discharge instructions reviewed with patient and/or family. Voiced understanding. Carefully monitor your blood sugar. Eat an appropriate diet and continue to take your medications as directed. Follow-up with [facility] for recheck and further evaluation. Call in the morning for appointment. Return for worse pain, fever, vomiting, weakness, breathing problems or other concerns as needed. You may take ibuprofen 400 mg every 8 hours as needed for pain. You may take Tylenol/acetaminophen 1000 mg every 8 hours as needed for pain. Drink plenty of fluids. NASH ASTUDILLO MD Jun 22, 2020 00:46
[2020-06-22 00:56] LABS: ALBUMIN 3.8 GM/DL (3.2-4.5); CHLORIDE 106 MMOL/L (98-107); POTASSIUM 3.6 MMOL/L (3.6-5.0); SODIUM 141 MMOL/L (135-145)
[2020-06-22 00:57] LABS: BACTERIA,URINE NEGATIVE /HPF; RBC,URINE RARE /HPF; SQUAMOUS EPITHELIAL CELL,UR RARE /HPF
[2020-06-22 00:57] LABS: CALCIUM 8.7 MG/DL (8.5-10.1)
[2020-06-22 00:58] LABS: GLUCOSE 112 MG/DL (70-105); TOTAL PROTEIN 6.6 GM/DL (6.4-8.2)
[2020-06-22 00:59] LABS: CARBON DIOXIDE 22 MMOL/L (21-32)
[2020-06-22 01:00] LABS: BILIRUBIN,TOTAL 0.2 MG/DL (0.1-1.0)
[2020-06-22 01:01] LABS: ALKALINE PHOSPHATASE 92 U/L (40-136)
[2020-06-22 01:02] LABS: GFR ESTIMATED > 60
[2020-06-22 01:03] LABS: BUN/CREATININE RATIO 28
[2020-06-22 01:05] LABS: ALANINE AMINOTRANSFERASE 32 U/L (0-55)
[2020-06-22 01:05] LABS: AMPHETAMINE SCREEN, URINE POSITIVE (NEGATIVE); BARBITURATE SCREEN URINE NEGATIVE (NEGATIVE); BENZODIAZEPINES SCREEN URINE NEGATIVE (NEGATIVE); CANNABINOID SCREEN, URINE NEGATIVE (NEGATIVE); COCAINE SCREEN URINE NEGATIVE (NEGATIVE); METHADONE STAT NEGATIVE (NEGATIVE); METHAMPHETAMINE SCREEN URINE S POSITIVE (NEGATIVE); OPIATE SCREEN URINE NEGATIVE (NEGATIVE); OXYCODONE STAT NEGATIVE (NEGATIVE); PROPOXYPHENE STAT NEGATIVE (NEGATIVE); TRICYCLIC ANTIDEPRESSANTS SCRE NEGATIVE (NEGATIVE)
[2020-06-22 02:28] VITALS: BP 154/82
--- NOTE | 2020-06-22 06:41 | Diagnostic Imaging Report ---
PROCEDURE: CT urinary tract, rule out kidney stone. TECHNIQUE: Multiple contiguous axial images were obtained through the abdomen and pelvis without the use of intravenous contrast. Auto Exposure Controls were utilized during the CT exam to meet ALARA standards for radiation dose reduction. INDICATION: Flank pain, kidney stones. COMPARISON: 12/02/2013. FINDINGS: Lung bases are clear. Nonobstructive stones are seen in both kidneys bilaterally. They measure 1 to 2 mm. There is no hydronephrosis or hydroureter. Gallbladder solid organs are otherwise unremarkable. There is mild constipation without obstruction or ileus. The prostate and urinary bladder are grossly unremarkable. There is no inflammatory process. Osseous structures are age-appropriate. IMPRESSION: 1. Nonobstructive bilateral renal calculi. 2. Mild constipation. Dictated by: Dictated on workstation # [id number]
== END 2020-06-22 02:28 | disposition home or self-care (01) ==
LOC: EDUNIT# 00:11 → ER 00:13
DX: R10.9 Unspecified abdominal pain (principal); F41.9 Anxiety disorder, unspecified; F31.9 Bipolar disorder, unspecified; F20.9 Schizophrenia, unspecified; E11.9 Type 2 diabetes mellitus without complications; Z82.61 Family history of arthritis; Z82.49 Family history of ischemic heart disease and other diseases of the circulatory system; F17.210 Nicotine dependence, cigarettes, uncomplicated; Z79.4 Long term (current) use of insulin
CPT/HCPCS: 36415; 74176; 80053; 80306; 81000; 82962; 85025; 86141

== ENCOUNTER 2020-07-07 17:18 | Emergency (ER) | payer OTHER ==
[~2020-07-07] VITALS: Ht 149.8 cm; Wt 61.0 kg
[2020-07-07] MEDS ORDERED: KETOROLAC 30 MG/ML VIAL IVP ONE (17:30)
--- NOTE | 2020-07-07 17:33 | ED Chest Pain ---
General Chief Complaint: Chest Wall Stated Complaint: CHEST PAIN;RIB PAIN Source: patient Exam Limitations: no limitations History of Present Illness Date Seen by Provider: Jul 07, 2020 Time Seen by Provider: 17:32 Initial Comments To ER with sharp right-sided rib and chest pain that radiates from the front to the back and has been present for 4 months. During that time he is also lost 40 pounds of weight. He states that he is seen primary care a couple of times to figure out why he is losing weight. Timing/Duration: changing over time Severity/Quality: moderate, sharp Radiation: no radiation Activities at Onset: none Associated Symptoms: No shortness of breath Allergies and Home Medications Allergies Coded Allergies: No Known Drug Allergies (Unverified , 12/02/13) Home Medications Hydroxyzine HCl 50 Mg Tablet, 50 MG PO Q6H PRN for NAUSEA/VOMITING Prescribed by: MOE SOLITARIO on 02/23/20 2221 Insulin Aspart 300 Units/3 Ml Solution, 16 UNITS SQ AC, (Reported) Insulin Degludec 100 Unit/1 Ml Insuln.pen, 40 UNIT SQ HS, (Reported) Ondansetron 4 Mg Tab.rapdis, 4 MG PO Q6H PRN for NAUSEA/VOMITING Prescribed by: CHRISTINE ELLOITT on 05/06/20 1006 Risperidone 1 Mg Tablet, 1 MG PO BID Prescribed by: LATRICIA ARTEAGA on 01/17/20 1006 Patient Home Medication List Home Medication List Reviewed: Yes Review of Systems Review of Systems Constitutional: see HPI EENTM: No Symptoms Reported Respiratory: No Symptoms Reported; Denies Cough, Denies Shortness of Air Cardiovascular: See HPI, Chest Pain Gastrointestinal: See HPI Genitourinary: No Symptoms Reported Musculoskeletal: no symptoms reported Skin: no symptoms reported Psychiatric/Neurological: No Symptoms Reported Endocrine: No Symptoms Reported Hematologic/Lymphatic: No Symptoms Reported Past Ccsbdvy-Vpypgo-Uogdei Hx Patient Social History Drug of Choice: meth and marijuana Type Used: Cigarettes 2nd Hand Smoke Exposure: Yes Recent Foreign Travel: No Contact w/Someone Who Travel: No Recent Hopitalizations: No Immunizations Up To Date Tetanus Booster (TDap): Less than 5yrs Seasonal Allergies Seasonal Allergies: No Past Medical History Surgeries: Yes (I&D OF ABSCESS TO CHIN/NECK AREA) Respiratory: No Currently Using CPAP: No Currently Using BIPAP: No Cardiac: No Neurological: No Genitourinary: No Gastrointestinal: Yes (HEPATITIS) Liver Disease/Jaundice, Hepatitis Musculoskeletal: No Endocrine: Yes (TYPE 1 DIABETES) Diabetes, Insulin dep HEENT: No Cancer: No Psychosocial: Yes (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 1.6oz. 73.547506kt; 20.00 BMI Method:Stated General Appearance: No Apparent Distress, WD/WN, Other (Constantly moving, unable to sit still.) HEENT: PERRL/EOMI, TMs Normal Neck: Full Range of Motion, Normal Inspection Respiratory: No Accessory Muscle Use, No Respiratory Distress Cardiovascular: Normal Peripheral Pulses, Tachycardia Gastrointestinal: Normal Bowel Sounds, Non Tender, Soft Extremity: Normal Capillary Refill, Normal Inspection Neurologic/Psychiatric: Alert, Oriented x3 Skin: Normal Color, Warm/Dry Progress/Results/Core Measures Results/Orders Lab Results Laboratory Tests Test 07/07/20 17:36 07/07/20 17:58 07/07/20 18:06 Range/Units Urine Color YELLOW Urine Clarity CLEAR Urine pH 6.0 5-9 Urine Specific [place] 1.025 H 1.016-1.022 Urine Protein NEGATIVE NEGATIVE Urine Glucose (UA) 3+ H NEGATIVE Urine Ketones NEGATIVE NEGATIVE Urine Nitrite NEGATIVE NEGATIVE Urine Bilirubin NEGATIVE NEGATIVE Urine Urobilinogen 0.2 < = 1.0 MG/DL Urine Leukocyte Esterase NEGATIVE NEGATIVE Urine RBC (Auto) 2+ H NEGATIVE Urine RBC 10-25 H /HPF Urine WBC NONE /HPF Urine Crystals PRESENT H /LPF Urine Amorphous Sediment RARE ZAHRA URATES H /LPF Urine Bacteria NEGATIVE /HPF Urine Casts NONE /LPF Urine Mucus NEGATIVE /LPF Urine Culture Indicated NO Urine Opiates Screen NEGATIVE NEGATIVE Urine Oxycodone Screen NEGATIVE NEGATIVE Urine Methadone Screen NEGATIVE NEGATIVE Urine Propoxyphene Screen NEGATIVE NEGATIVE Urine Barbiturates Screen NEGATIVE NEGATIVE Ur Tricyclic Antidepressants Screen NEGATIVE NEGATIVE Urine Phencyclidine Screen NEGATIVE NEGATIVE Urine Amphetamines Screen POSITIVE H NEGATIVE Urine Methamphetamines Screen POSITIVE H NEGATIVE Urine Benzodiazepines Screen NEGATIVE NEGATIVE Urine Cocaine Screen NEGATIVE NEGATIVE Urine Cannabinoids Screen NEGATIVE NEGATIVE White Blood Count 10.9 4.3-11.0 10^3/uL Red Blood Count 4.35 4.30-5.52 10^6/uL Hemoglobin 13.5 13.3-17.7 g/dL Hematocrit 40 40-54 % Mean Corpuscular Volume 92 80-99 fL Mean Corpuscular Hemoglobin 31 25-34 pg Mean Corpuscular Hemoglobin Concent 34 32-36 g/dL Red Cell Distribution Width 12.5 10.0-14.5 % Platelet Count 310 130-400 10^3/uL Mean Platelet Volume 10.9 9.0-12.2 fL Immature Granulocyte % (Auto) 0 % Neutrophils (%) (Auto) 64 42-75 % Lymphocytes (%) (Auto) 24 12-44 % Monocytes (%) (Auto) 7 0-12 % Eosinophils (%) (Auto) 4 0-10 % Basophils (%) (Auto) 1 0-10 % Neutrophils # (Auto) 7.0 1.8-7.8 10^3/uL Lymphocytes # (Auto) 2.6 1.0-4.0 10^3/uL Monocytes # (Auto) 0.8 0.0-1.0 10^3/uL Eosinophils # (Auto) 0.5 H 0.0-0.3 10^3/uL Basophils # (Auto) 0.1 0.0-0.1 10^3/uL Immature Granulocyte # (Auto) 0.0 0.0-0.1 10^3/uL Sodium Level 140 135-145 MMOL/L Potassium Level 3.7 3.6-5.0 MMOL/L Chloride Level 103 98-107 MMOL/L Carbon Dioxide Level 25 21-32 MMOL/L Anion Gap 12 5-14 MMOL/L Blood Urea Nitrogen 22 H 7-18 MG/DL Creatinine 0.92 0.60-1.30 MG/DL Estimat Glomerular Filtration Rate > 60 BUN/Creatinine Ratio 24 Glucose Level 186 H 70-105 MG/DL Calcium Level 8.3 L 8.5-10.1 MG/DL Corrected Calcium 8.5 8.5-10.1 MG/DL Magnesium Level 2.2 1.6-2.4 MG/DL Total Bilirubin 0.3 0.1-1.0 MG/DL Aspartate Amino Transf (AST/SGOT) 25 5-34 U/L Alanine Aminotransferase (ALT/SGPT) 22 0-55 U/L Alkaline Phosphatase 80 40-136 U/L Myoglobin 111.8 H 10.0-92.0 NG/ML Troponin I < 0.028 <0.028 NG/ML Total Protein 6.3 L 6.4-8.2 GM/DL Albumin 3.8 3.2-4.5 GM/DL Glucometer 159 H 70-110 MG/DL My Orders Orders - MOE SOLITARIO APRN Cbc With Automated Diff (07/07/20:) Magnesium (07/07/20) Chest 1 View, Ap/Pa Only (07/07/20) Ekg Tracing (07/07/20) Comprehensive Metabolic Panel (07/07/20) Myoglobin Serum (07/07/20) Protime With Inr (07/07/20) Partial Thromboplastin Time (07/07/20) O2 (07/07/20) Monitor-Rhythm Ecg Trace Only (07/07/20) Lipid Panel (07/08/20 06:00) Ed Iv/Invasive Line Start (07/07/20:) Troponin I (07/07/20:) Drug Screen Stat (Urine) (07/07/20 17:30) Ua Culture If Indicated (07/07/20 17:30) Ketorolac Injection (Toradol Injection) (07/07/20 17:30) Lorazepam Injection (Ativan Injection) (07/07/20 17:45) Ondansetron Injection (Zofran Injectio (07/07/20 18:00) Medications Given in ED Current Medications Medications Dose Ordered Sig/Andre Route Start Time Stop Time Status Last Admin Dose Admin Ketorolac Tromethamine 15 mg ONCE ONCE IVP 07/07/20 17:30 07/07/20 17:31 DC 07/07/20 18:06 15 MG Lorazepam 1 mg ONCE ONCE IVP 07/07/20 17:45 07/07/20 17:46 DC 07/07/20 18:05 1 MG Ondansetron HCl 8 mg ONCE ONCE IVP 07/07/20 18:00 07/07/20 18:01 DC 07/07/20 18:03 8 MG Vital Signs/I&O 07/07/20 17:25 Temp 36.0 Pulse 107 Resp 20 B/P (MAP) 122/101 (108) Pulse Ox 100 Departure Communication (Admissions) 1840-patient would like a dose of steroids since they seemed to help at the onset of this pain. He also would like to be tested for HIV and hepatitis. I referred him to [facility]. Impression Primary Impression: Chest wall pain Additional Impressions: Weight loss Methamphetamine use Disposition: 01 HOME, SELF-CARE Condition: Stable Departure-Patient Inst. Decision time for Depature: 18:16 Referrals: [facility] (PCP/Family) Primary Care Physician Patient Instructions: NO INSTRUCTIONS GIVEN Scripts Prednisone (Prednisone) 20 Mg Tab 40 MG PO DAILY, #4 TAB 0 Refills Prov: MOE SOLITARIO APRN 07/07/20 MOE SOLITARIO APRN Jul 07, 2020 17:33
[2020-07-07 17:42] LABS: BILIRUBIN,URINE NEGATIVE (NEGATIVE); CLARITY,URINE CLEAR; COLOR,URINE YELLOW; GLUCOSE, URINE (UA) 3+ (NEGATIVE); KETONES,URINE NEGATIVE (NEGATIVE); LEUKOCYTE ESTERASE ,URINE NEGATIVE (NEGATIVE); NITRITE,URINE NEGATIVE (NEGATIVE); PROTEIN,URINE NEGATIVE (NEGATIVE)
[2020-07-07] MEDS ORDERED: LORazepam INJ 2 MG/ML (ATIVAN) VIAL IVP ONE (17:45)
[2020-07-07] MEDS ORDERED: ONDANSETRON 4 MG/2 ML (SDV) Z0FRAN IVP ONE (18:00)
--- NOTE | 2020-07-07 18:02 | Diagnostic Imaging Report ---
INDICATION: Chest pain. Time of exam: 5:53 PM Comparison is made with prior chest from 05/06/2020. The heart size is normal. The pulmonary vascularity is unremarkable. The lungs are clear. No infiltrate, effusion or pneumothorax is detected. IMPRESSION: No acute cardiopulmonary process is detected. Dictated by: Dictated on workstation # [id number]
[2020-07-07 18:05] LABS: BASOPHILS # (AUTO) 0.1 10^3/uL (0.0-0.1); BASOPHILS % (AUTO) 1 % (0-10); EOSINOPHILS # (AUTO) 0.5 10^3/uL (0.0-0.3); EOSINOPHILS % (AUTO) 4 % (0-10); HEMATOCRIT 40 % (40-54); HEMOGLOBIN 13.5 g/dL (13.3-17.7); LYMPHOCYTES # (AUTO) 2.6 10^3/uL (1.0-4.0); LYMPHOCYTES % (AUTO) 24 % (12-44); MEAN CORPUSCULAR HEMOGLOBIN 31 pg (25-34); MEAN CORPUSCULAR HGB CONC 34 g/dL (32-36); MEAN CORPUSCULAR VOLUME 92 fL (80-99); MEAN PLATELET VOLUME 10.9 fL (9.0-12.2); MONOCYTES # (AUTO) 0.8 10^3/uL (0.0-1.0); MONOCYTES % (AUTO) 7 % (0-12); NEUTROPHILS % (AUTO) 64 % (42-75); PLATELET COUNT 310 10^3/uL (130-400); WHITE BLOOD COUNT 10.9 10^3/uL (4.3-11.0)
[2020-07-07 18:11] LABS: AMPHETAMINE SCREEN, URINE POSITIVE (NEGATIVE); BARBITURATE SCREEN URINE NEGATIVE (NEGATIVE); BENZODIAZEPINES SCREEN URINE NEGATIVE (NEGATIVE); CANNABINOID SCREEN, URINE NEGATIVE (NEGATIVE); COCAINE SCREEN URINE NEGATIVE (NEGATIVE); METHADONE STAT NEGATIVE (NEGATIVE); METHAMPHETAMINE SCREEN URINE S POSITIVE (NEGATIVE); OPIATE SCREEN URINE NEGATIVE (NEGATIVE); OXYCODONE STAT NEGATIVE (NEGATIVE); PROPOXYPHENE STAT NEGATIVE (NEGATIVE); TRICYCLIC ANTIDEPRESSANTS SCRE NEGATIVE (NEGATIVE)
[2020-07-07 18:14] LABS: BACTERIA,URINE NEGATIVE /HPF
[2020-07-07 18:15] LABS: ALBUMIN 3.8 GM/DL (3.2-4.5); CHLORIDE 103 MMOL/L (98-107); POTASSIUM 3.7 MMOL/L (3.6-5.0); SODIUM 140 MMOL/L (135-145)
[2020-07-07 18:17] LABS: CALCIUM 8.3 MG/DL (8.5-10.1)
[2020-07-07 18:17] LABS: AMORPHOUS SEDIMENT,UR RARE AMOR URATES /LPF
[2020-07-07 18:18] LABS: GLUCOSE 186 MG/DL (70-105); TOTAL PROTEIN 6.3 GM/DL (6.4-8.2)
[2020-07-07 18:19] LABS: BILIRUBIN,TOTAL 0.3 MG/DL (0.1-1.0); CARBON DIOXIDE 25 MMOL/L (21-32)
[2020-07-07 18:21] LABS: ALKALINE PHOSPHATASE 80 U/L (40-136); CREATININE SERUM 0.92 MG/DL (0.60-1.30); GFR ESTIMATED > 60
[2020-07-07 18:22] LABS: BUN/CREATININE RATIO 24
[2020-07-07 18:24] LABS: ALANINE AMINOTRANSFERASE 22 U/L (0-55); MAGNESIUM 2.2 MG/DL (1.6-2.4)
[2020-07-07 18:34] LABS: INR 0.9 (0.8-1.4); PROTHROMBIN TIME PATIENT 12.8 SEC (12.2-14.7)
[2020-07-07] MEDS ORDERED: PRD20T PO (18:41)
[2020-07-07 18:42] VITALS: BP 122/101
== END 2020-07-07 18:42 | disposition home or self-care (01) ==
LOC: EDUNIT# 17:18 → ER 17:19
DX: R07.89 Other chest pain (principal); R63.4 Abnormal weight loss; F15.90 Other stimulant use, unspecified, uncomplicated; F41.9 Anxiety disorder, unspecified; F31.9 Bipolar disorder, unspecified; F20.9 Schizophrenia, unspecified; E11.9 Type 2 diabetes mellitus without complications; Z68.20 Body mass index [BMI] 20.0-20.9, adult; Z82.61 Family history of arthritis; Z82.49 Family history of ischemic heart disease and other diseases of the circulatory system; Z77.22 Contact with and (suspected) exposure to environmental tobacco smoke (acute) (chronic); Z79.4 Long term (current) use of insulin
CPT/HCPCS: 36415; 71045; 80053; 80306; 81000; 82962; 83735; 83874; 84484; 85025; 85610; 85730; 93041

== ENCOUNTER 2020-07-08 22:00 | Emergency (ER) | payer OTHER ==
[~2020-07-08] VITALS: Ht 172.7 cm; Wt 63.5 kg
[~2020-07-08 22:00] MED LIST changes: +PRD20T PO; -RISP1TAB3 PO; +RISP1TAB93 PO
[2020-07-08 22:02] VITALS: BP 146/120
--- NOTE | 2020-07-08 22:15 | NUR ---
PT OFFERED NICOTINE PATCH. PT REFUSED.
[2020-07-08] MEDS ORDERED: LORazepam 0.5 MG (ATIVAN) TABLET PO STA (22:23)
[2020-07-08] MEDS ORDERED: FAMOTIDINE 20 MG (PEPCID) TABLET PO ONE (22:30)
[2020-07-08] MEDS ORDERED: PANTOPRAZOLE 40 MG (PROTONIX) VIAL IV ONE (22:30)
[2020-07-08] MEDS ORDERED: inSUlin ASPART (NovoLOG) 1 UNIT/0.01 ML (CHARGE PER UNIT) SC ONE (22:30)
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
[2020-07-08 22:36] LABS: BASOPHILS % (AUTO) 0 % (0-10); EOSINOPHILS % (AUTO) 0 % (0-10); HEMATOCRIT 42 % (40-54); HEMOGLOBIN 14.1 g/dL (13.3-17.7); LYMPHOCYTES # (AUTO) 0.5 10^3/uL (1.0-4.0); LYMPHOCYTES % (AUTO) 6 % (12-44); MEAN CORPUSCULAR HEMOGLOBIN 31 pg (25-34); MEAN CORPUSCULAR HGB CONC 34 g/dL (32-36); MEAN CORPUSCULAR VOLUME 93 fL (80-99); MONOCYTES # (AUTO) 0.2 10^3/uL (0.0-1.0); MONOCYTES % (AUTO) 2 % (0-12); NEUTROPHILS % (AUTO) 92 % (42-75); PLATELET COUNT 329 10^3/uL (130-400); WHITE BLOOD COUNT 8.7 10^3/uL (4.3-11.0)
[2020-07-08 22:39] LABS: BILIRUBIN,URINE NEGATIVE (NEGATIVE); CLARITY,URINE CLEAR; COLOR,URINE YELLOW; GLUCOSE, URINE (UA) 3+ (NEGATIVE); KETONES,URINE NEGATIVE (NEGATIVE); LEUKOCYTE ESTERASE ,URINE NEGATIVE (NEGATIVE); NITRITE,URINE NEGATIVE (NEGATIVE); PH,URINE 5.5 (5-9); PROTEIN,URINE NEGATIVE (NEGATIVE)
[2020-07-08 22:52] LABS: BACTERIA,URINE NEGATIVE /HPF
[2020-07-08 22:54] LABS: AMPHETAMINE SCREEN, URINE POSITIVE (NEGATIVE); BARBITURATE SCREEN URINE NEGATIVE (NEGATIVE); BENZODIAZEPINES SCREEN URINE POSITIVE (NEGATIVE); CANNABINOID SCREEN, URINE NEGATIVE (NEGATIVE); COCAINE SCREEN URINE NEGATIVE (NEGATIVE); METHADONE STAT NEGATIVE (NEGATIVE); METHAMPHETAMINE SCREEN URINE S POSITIVE (NEGATIVE); OPIATE SCREEN URINE POSITIVE (NEGATIVE); OXYCODONE STAT NEGATIVE (NEGATIVE); PROPOXYPHENE STAT NEGATIVE (NEGATIVE); TRICYCLIC ANTIDEPRESSANTS SCRE NEGATIVE (NEGATIVE)
[2020-07-08 22:58] LABS: ALANINE AMINOTRANSFERASE 23 U/L (0-55); ALKALINE PHOSPHATASE 88 U/L (40-136); BILIRUBIN,TOTAL 0.6 MG/DL (0.1-1.0); CALCIUM 9.4 MG/DL (8.5-10.1); CARBON DIOXIDE 21 MMOL/L (21-32); CHLORIDE 101 MMOL/L (98-107); GLUCOSE 293 MG/DL (70-105); POTASSIUM 4.2 MMOL/L (3.6-5.0); SALICYLATE < 5.0 MG/DL (5.0-20.0); SODIUM 135 MMOL/L (135-145); TOTAL PROTEIN 6.6 GM/DL (6.4-8.2)
[2020-07-08 23:02] LABS: LYMPHOCYTES % (MANUAL) 8 %; MONOCYTES % (MANUAL) 1 %; NEUTROPHILS % (MANUAL) 91 %; RBC MORPH NORMAL
[2020-07-08 23:05] LABS: ACETAMINOPHEN < 10 UG/ML (10-30)
[2020-07-08 23:17] LABS: BUN/CREATININE RATIO 29; CREATININE SERUM 1.08 MG/DL (0.60-1.30); GFR ESTIMATED > 60
== END 2020-07-08 22:58 | disposition left against medical advice (07) ==
LOC: EDUNIT# 22:00 → ER 22:02
DX: F22 Delusional disorders (principal); E10.9 Type 1 diabetes mellitus without complications; F41.9 Anxiety disorder, unspecified; F31.9 Bipolar disorder, unspecified; F20.9 Schizophrenia, unspecified; F17.210 Nicotine dependence, cigarettes, uncomplicated; Z82.61 Family history of arthritis; Z82.49 Family history of ischemic heart disease and other diseases of the circulatory system; Z79.52 Long term (current) use of systemic steroids
CPT/HCPCS: 80053; 80306; 81000; 82962; 85007; 85027; 93005; 93041; 99284; G0480 ×3; 36415; 80320; 80329

== ENCOUNTER 2020-07-09 00:07 | Emergency (ER) | payer OTHER ==
[~2020-07-09] VITALS: Ht 173 cm; Wt 63.5 kg
[2020-07-09] MEDS ORDERED: LORazepam 0.5 MG (ATIVAN) TABLET PO STA (00:31)
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
[2020-07-09] MEDS ORDERED: NICOTINE 21 MG (NICODERM) PATCH TD ONE (00:45)
[2020-07-09] MEDS ORDERED: NICOTINE 2 MG GUM (NICORETTE) PO PRN (00:45)
--- NOTE | 2020-07-09 02:58 | NUR ---
pt accepted to [facility] facility. jennifer santiago contacted for transport. states he will be here between 6-630am to transport pt.
--- NOTE | 2020-07-09 03:50 | NUR ---
report called to kaity murdock
[2020-07-09 06:16] VITALS: BP 125/68
== END 2020-07-09 06:16 ==
LOC: EDUNIT# 00:07 → ER 00:13
DX: F30.9 Manic episode, unspecified (principal); F22 Delusional disorders; F41.9 Anxiety disorder, unspecified; E10.9 Type 1 diabetes mellitus without complications; F20.9 Schizophrenia, unspecified; Z82.61 Family history of arthritis; Z82.49 Family history of ischemic heart disease and other diseases of the circulatory system; Z20.828 Contact with and (suspected) exposure to other viral communicable diseases; Z77.22 Contact with and (suspected) exposure to environmental tobacco smoke (acute) (chronic); Z79.52 Long term (current) use of systemic steroids
CPT/HCPCS: 82962; 99282; U0002; 87635

== ENCOUNTER 2020-07-12 16:46 | Emergency (ER) | payer OTHER ==
[~2020-07-12] VITALS: Ht 175.2 cm; Wt 65.4 kg
--- NOTE | 2020-07-12 16:50 | NUR ---
Amending previous note: seen in [place] ER 07/07, 07/08, 07/09
--- NOTE | 2020-07-12 16:50 | NUR ---
Patient arrival on foot to ED after [facility] Dispatch report a caller is stating he has a high blood sugar and doesn't think he can make it to hospital and phone pings to [facility] near this [facility] building housing [facility] ED. Pt has been seen in [facility] ER 08/06, 08/07, and 08/08. Pt was transferred to [facility] @ [facility]. Pt states he was released today and has walked back to [place]. Pt states he has insulin in [place] and does not know how to get there. Pt reports blood sugar managed while in [facility] but he has ate 2 more meals since morning insulin. Pt reports he manages glucose to the range 180-220.
[2020-07-12] MEDS ORDERED: PRAV20TA3 PO (17:06)
[2020-07-12 17:22] LABS: BILIRUBIN,URINE NEGATIVE (NEGATIVE); CLARITY,URINE CLEAR; COLOR,URINE PALE YELLOW; GLUCOSE, URINE (UA) 3+ (NEGATIVE); KETONES,URINE NEGATIVE (NEGATIVE); LEUKOCYTE ESTERASE ,URINE NEGATIVE (NEGATIVE); NITRITE,URINE NEGATIVE (NEGATIVE); PROTEIN,URINE NEGATIVE (NEGATIVE)
[2020-07-12] MEDS: NS IV 1000 ML 1,000 ML IV SCH ×2 (17:22→18:10)
[2020-07-12 17:23] LABS: BACTERIA,URINE NEGATIVE /HPF; RBC,URINE RARE /HPF; WBC,URINE RARE /HPF
[2020-07-12 17:26] LABS: HEMATOCRIT 43 % (40-54); HEMOGLOBIN 14.6 G/DL (13.3-17.7); LYMPHOCYTES % (AUTO) 19 % (12-44); MEAN CORPUSCULAR HEMOGLOBIN 31 PG (25-34); MEAN CORPUSCULAR HGB CONC 34 G/DL (32-36); MEAN CORPUSCULAR VOLUME 92 FL (80-99); MEAN PLATELET VOLUME 10.9 FL (7.4-10.4); NEUTROPHILS % (AUTO) 76 % (42-75); PLATELET COUNT 327 10^3/uL (130-400); WHITE BLOOD COUNT 9.6 10^3/uL (4.3-11.0)
[2020-07-12 17:27] LABS: BASOPHILS # (AUTO) 0.1 10^3/uL (0.0-0.1); BASOPHILS % (AUTO) 1 % (0-10); EOSINOPHILS # (AUTO) 0.1 10^3/uL (0.0-0.3); EOSINOPHILS % (AUTO) 1 % (0-10); LYMPHOCYTES # (AUTO) 1.8 X 10^3 (1.0-4.0); MONOCYTES # (AUTO) 0.3 X 10^3 (0.0-1.0); MONOCYTES % (AUTO) 3 % (0-12); NEUTROPHILS # (AUTO) 7.3 X 10^3 (1.8-7.8)
[2020-07-12 17:45] LABS: BUN/CREATININE RATIO 25; CARBON DIOXIDE 25 MMOL/L (21-32); CHLORIDE 94 MMOL/L (98-107); CREATININE SERUM 0.99 MG/DL (0.60-1.30); GFR ESTIMATED > 60; POTASSIUM 4.8 MMOL/L (3.6-5.0); SODIUM 130 MMOL/L (135-145)
[2020-07-12 17:47] LABS: ALANINE AMINOTRANSFERASE 18 U/L (0-55); ALBUMIN 4.1 GM/DL (3.2-4.5); ALKALINE PHOSPHATASE 110 U/L (40-136); BILIRUBIN,TOTAL 0.2 MG/DL (0.1-1.0); CALCIUM 8.9 MG/DL (8.5-10.1); GLUCOSE 715 MG/DL (70-105); TOTAL PROTEIN 6.8 GM/DL (6.4-8.2)
[2020-07-12] MEDS ORDERED: INSULIN REGULAR SQ SCH (18:00)
[2020-07-12] MEDS ORDERED: inSUlin (REGULAR) HUMAN 1 UNIT/0.01 ML (CHARGE PER UNIT) ONE (18:13)
[2020-07-12] MEDS ORDERED: inSUlin (REGULAR) HUMAN 1 UNIT/0.01 ML (CHARGE PER UNIT) SC ONE (18:30)
--- NOTE | 2020-07-12 18:40 | NUR ---
Report to Angelica CORTÉS.
--- NOTE | 2020-07-12 19:01 | ED General ---
General Chief Complaint: Glucose Problems Stated Complaint: HIGH BLOOD SUGAR Nursing Triage Note: Patient presents to ED registration requesting insulin refill and ride to [facility]. Pt just released from a Mental Health stay at [facility] and reports he has been out of insulin 1 hr and has insulin waiting in [facility]. Pt offered medical screening exam based on his actual request. Nursing Sepsis Screen: No Definite Risk Source of Information: Patient History of Present Illness Date Seen by Provider: Jul 12, 2020 Time Seen by Provider: 19:00 Initial Comments Patient is a 39-year-old insulin-dependent pended diabetic male who was released from [facility] this morning who presents with elevated blood sugar. Patient states he has not had insulin in over 10 hours as needed to meals and 20 miles. This dizziness lightheadedness palpitations chest pain shortness of breath. No nausea vomiting. Blood sugar >700. Patient has plans to go to [place] where he has diabetic supplies including insulin. Timing/Duration: 4-6 Hours, 1 Day Modifying Factors: improves with Movement Allergies and Home Medications Allergies Coded Allergies: No Known Drug Allergies (Unverified , 12/02/13) Home Medications Hydroxyzine HCl 50 Mg Tablet, 50 MG PO Q6H PRN for NAUSEA/VOMITING Prescribed by: MOE SOLITARIO on 02/23/20 2221 Insulin Aspart 300 Units/3 Ml Solution, 16 UNITS SQ AC, (Reported) Insulin Degludec 100 Unit/1 Ml Insuln.pen, 40 UNIT SQ HS, (Reported) Ondansetron 4 Mg Tab.rapdis, 4 MG PO Q6H PRN for NAUSEA/VOMITING Prescribed by: CHRISTINE ELLIOTT on 05/06/20 1006 Pravastatin Sodium 20 Mg Tablet, 20 MG PO DAILY, (Reported) Prednisone 20 Mg Tab, 40 MG PO DAILY Prescribed by: MOE SOLITARIO on 07/07/20 1841 Risperidone 1 Mg Tablet, 1 MG PO BID Prescribed by: LATRICIA ARTEAGA on 01/17/20 1006 Patient Home Medication List Home Medication List Reviewed: Yes Review of Systems Review of Systems Constitutional: see HPI EENTM: see HPI Respiratory: see HPI Cardiovascular: see HPI Gastrointestinal: see HPI Genitourinary: see HPI Musculoskeletal: see HPI Skin: see HPI Psychiatric/Neurological: See HPI Hematologic/Lymphatic: See HPI Immunological/Allergic: see HPI All Other Systems Reviewed Negative Unless Noted: No Past Gmhuvgv-Nblykn-Illbzj Hx Past Med/Social Hx: Reviewed Nursing Past Med/Soc Hx Patient Social History Alcohol Use: Denies Use Recreational Drug Use: Yes Drug of Choice: meth and marijuana Type Used: Cigarettes 2nd Hand Smoke Exposure: Yes Recent Foreign Travel: No Contact w/Someone Who Travel: No Recent Infectious Disease Expo: No Recent Hopitalizations: No Physical Abuse: No Sexual Abuse: No Mistreated: No Fear: No Immunizations Up To Date Tetanus Booster (TDap): Less than 5yrs Seasonal Allergies Seasonal Allergies: No Past Medical History Surgeries: Yes (I&D OF ABSCESS TO CHIN/NECK AREA) Respiratory: No Currently Using CPAP: No Currently Using BIPAP: No Cardiac: No Neurological: No Genitourinary: No Gastrointestinal: Yes (HEPATITIS) Liver Disease/Jaundice, Hepatitis Musculoskeletal: No Endocrine: Yes (TYPE 1 DIABETES) Diabetes, Insulin dep HEENT: No Cancer: No Psychosocial: Yes (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00" Weight: 162lbs. 1.6oz. [id number]; 21.00 BMI Method:Stated General Appearance: No Apparent Distress, WD/WN Eyes: Bilateral Eye Normal Inspection, Bilateral Eye PERRL, Bilateral Eye EOMI HEENT: PERRL/EOMI, Normal ENT Inspection, Pharynx Normal Neck: Full Range of Motion, Non Tender, Supple Respiratory: Chest Non Tender, Lungs Clear, Normal Breath Sounds Cardiovascular: Regular Rate, Rhythm, No Edema Gastrointestinal: Non Tender, Soft Back: Normal Inspection, No CVA Tenderness Extremity: Normal Capillary Refill Neurologic/Psychiatric: Alert, Oriented x3 Focused Exam Sepsis Stage: Ruled Out Progress/Results/Core Measures Suspected Sepsis Recent Fever Within 48 Hours: No Infection Criteria Present: None New/Unexplained Altered Menta: No Sepsis Screen: No Definite Risk SIRS Temperature: Pulse: 120 Respiratory Rate: 16 Laboratory Tests 07/12/20 17:10: White Blood Count 9.6 Blood Pressure 164 /100 Mean: 121 Laboratory Tests 07/12/20 17:10: Creatinine 0.99, Platelet Count 327, Total Bilirubin 0.2 Results/Orders Lab Results Laboratory Tests Test 07/12/20 16:55 07/12/20 17:10 07/12/20 18:53 Range/Units Urine Color PALE YELLOW Urine Clarity CLEAR Urine pH 6.0 5-9 Urine Specific [place] <=1.005 1.016-1.022 Urine Protein NEGATIVE NEGATIVE Urine Glucose (UA) 3+ H NEGATIVE Urine Ketones NEGATIVE NEGATIVE Urine Nitrite NEGATIVE NEGATIVE Urine Bilirubin NEGATIVE NEGATIVE Urine Urobilinogen 0.2 < = 1.0 MG/DL Urine Leukocyte Esterase NEGATIVE NEGATIVE Urine RBC (Auto) NEGATIVE NEGATIVE Urine RBC RARE /HPF Urine WBC RARE /HPF Urine Squamous Epithelial Cells NONE /HPF Urine Crystals NONE /LPF Urine Bacteria NEGATIVE /HPF Urine Casts NONE /LPF Urine Mucus NEGATIVE /LPF Urine Culture Indicated NO White Blood Count 9.6 4.3-11.0 10^3/uL Red Blood Count 4.73 4.35-5.85 10^6/uL Hemoglobin 14.6 13.3-17.7 G/DL Hematocrit 43 40-54 % Mean Corpuscular Volume 92 80-99 FL Mean Corpuscular Hemoglobin 31 25-34 PG Mean Corpuscular Hemoglobin Concent 34 32-36 G/DL Red Cell Distribution Width 11.9 10.0-14.5 % Platelet Count 327 130-400 10^3/uL Mean Platelet Volume 10.9 H 7.4-10.4 FL Immature Granulocyte % (Auto) 0 % Neutrophils (%) (Auto) 76 H 42-75 % Lymphocytes (%) (Auto) 19 12-44 % Monocytes (%) (Auto) 3 0-12 % Eosinophils (%) (Auto) 1 0-10 % Basophils (%) (Auto) 1 0-10 % Neutrophils # (Auto) 7.3 1.8-7.8 X 10^3 Lymphocytes # (Auto) 1.8 1.0-4.0 X 10^3 Monocytes # (Auto) 0.3 0.0-1.0 X 10^3 Eosinophils # (Auto) 0.1 0.0-0.3 10^3/uL Basophils # (Auto) 0.1 0.0-0.1 10^3/uL Immature Granulocyte # (Auto) 0.0 0.0-0.1 10^3/uL Sodium Level 130 L 135-145 MMOL/L Potassium Level 4.8 3.6-5.0 MMOL/L Chloride Level 94 L 98-107 MMOL/L Carbon Dioxide Level 25 21-32 MMOL/L Anion Gap 11 5-14 MMOL/L Blood Urea Nitrogen 25 H 7-18 MG/DL Creatinine 0.99 0.60-1.30 MG/DL Estimat Glomerular Filtration Rate > 60 BUN/Creatinine Ratio 25 Glucose Level 715 *H 70-105 MG/DL Calcium Level 8.9 8.5-10.1 MG/DL Corrected Calcium 8.8 8.5-10.1 MG/DL Total Bilirubin 0.2 0.1-1.0 MG/DL Aspartate Amino Transf (AST/SGOT) 15 5-34 U/L Alanine Aminotransferase (ALT/SGPT) 18 0-55 U/L Alkaline Phosphatase 110 40-136 U/L Total Protein 6.8 6.4-8.2 GM/DL Albumin 4.1 3.2-4.5 GM/DL My Orders Orders - MIRIAM JONAS DO Cbc With Automated Diff (07/12/20 17:08) Comprehensive Metabolic Panel (07/12/20 17:08) Ua Culture If Indicated (07/12/20 17:08) Ns Iv 1000 Ml (Sodium Chloride 0.9%) (07/12/20 17:15) Insulin Regular(Pump Only) (Novolin R Vi (07/12/20 18:00) Insulin (Regular) Human (Novolin R (Per (07/12/20 18:13) Insulin (Regular) Human (Novolin R (Per (07/12/20 18:30) Accucheck Fasting (07/12/20 18:49) Medications Given in ED Current Medications Medications Dose Ordered Sig/Andre Route Start Time Stop Time Status Last Admin Dose Admin Insulin Human Regular 18 unit ONCE ONCE SC 07/12/20 18:30 07/12/20 18:31 DC 07/12/20 18:19 18 UNIT Vital Signs/I&O 07/12/20 16:50 Temp 36.9 Pulse 120 Resp 16 B/P (MAP) 164/100 (121) Pulse Ox 98 O2 Delivery Room Air Capillary Refill : Less Than 3 Seconds Blood Pressure Mean: 121 Point of Care Testing Blood Glucose Action Taken: Too high to register Departure Communication (Admissions) IV fluids, insulin given. Patient's vital signs stable. Bicarbonate 24, blood sugar improved to less than 400 with treatment. Patient has transportation to return to [place] first thing tomorrow morning. Impression Primary Impression: Hyperglycemia Additional Impression: Insulin dependent diabetes mellitus Disposition: HOME, SELF-CARE Condition: Stable Transfer Method of Transfer: EMS Departure-Patient Inst. Referrals: [facility] (PCP/Family) Primary Care Physician Patient Instructions: Hyperglycemia, Adult (DC), The ABCs of Diabetes Add. Discharge Instructions: Please resume previous diabetic insulin schedule follow up with PCP for further management. Return to the closest ED if new or worsening symptoms. All discharge instructions reviewed with patient and/or family. Voiced understanding. MIRIAM JONAS DO Jul 12, 2020 19:01
[2020-07-12 19:03] VITALS: BP 142/96
== END 2020-07-12 19:03 | disposition home or self-care (01) ==
LOC: EDUNIT# 16:46 → ER FS 16:47
DX: E10.65 Type 1 diabetes mellitus with hyperglycemia (principal); F20.9 Schizophrenia, unspecified; F31.9 Bipolar disorder, unspecified; F41.9 Anxiety disorder, unspecified; Z82.61 Family history of arthritis; Z82.49 Family history of ischemic heart disease and other diseases of the circulatory system; Z77.22 Contact with and (suspected) exposure to environmental tobacco smoke (acute) (chronic); Z79.52 Long term (current) use of systemic steroids
CPT/HCPCS: 36415; 80053; 81000; 82962; 85025

== ENCOUNTER 2020-07-16 15:31 | Emergency (ER) | payer OTHER ==
[~2020-07-16 15:31] MED LIST changes: +PRAV20TA3 PO
== END 2020-07-16 15:46 | disposition left against medical advice (07) ==
LOC: EDUNIT# 15:31 → ER 15:32
DX: F09 Unspecified mental disorder due to known physiological condition (principal); Z20.828 Contact with and (suspected) exposure to other viral communicable diseases

== ENCOUNTER 2020-07-18 15:06 | Emergency (ER) | payer OTHER ==
[~2020-07-18] VITALS: Ht 175 cm; Wt 65.7 kg
--- NOTE | 2020-07-18 15:41 | ED General ---
General Stated Complaint: VOMITING BLOOD Source of Information: Patient Exam Limitations: No Limitations History of Present Illness Date Seen by Provider: Jul 18, 2020 Time Seen by Provider: 15:39 Initial Comments This is a healthy 39-year-old male who presents to the ER with complaints of vomiting blood 2 times this morning. States he had 2 episodes of emesis prior to ED arrival, with the last a couple hours ago after eating [employer]. States emesis had spots of pink/reddish color. Denies any jesenia bleeding. Additionally reports streaks of blood in his stool approximately 2 weeks ago, but has not noticed any recently. Denies fevers, chills, cough, shortness of breath, chest pain, abdominal pain. States he stopped using meth 4 days ago as he is to enter [facility] on July 29 of next month. Allergies and Home Medications Allergies Coded Allergies: No Known Drug Allergies (Unverified , 12/02/13) Home Medications Hydroxyzine HCl 50 Mg Tablet, 50 MG PO Q6H PRN for NAUSEA/VOMITING Prescribed by: MOE SOLITARIO on 02/23/20 2221 Insulin Aspart 300 Units/3 Ml Solution, 16 UNITS SQ AC, (Reported) Insulin Degludec 100 Unit/1 Ml Insuln.pen, 40 UNIT SQ HS, (Reported) Olanzapine 5 Mg Tablet, 5 MG PO DAILY Prescribed by: BRADLY CORDOBA on 07/18/20 171 Ondansetron 4 Mg Tab.rapdis, 4 MG PO Q6H PRN for NAUSEA/VOMITING Prescribed by: CHRISTINE ELLIOTT on 05/06/20 1006 Ondansetron 4 Mg Tab.rapdis, 4 MG PO Q4H PRN for NAUSEA-1ST LINE Prescribed by: BRADLY CORDOBA on 07/18/20 171 Pantoprazole Sodium 20 Mg Tablet.dr, 20 MG PO DAILY Prescribed by: BRADLY CORDOBA on 07/18/20 171 Pravastatin Sodium 20 Mg Tablet, 20 MG PO DAILY, (Reported) Prednisone 20 Mg Tab, 40 MG PO DAILY Prescribed by: MOE SOLITARIO on 07/07/20 1841 Risperidone 1 Mg Tablet, 1 MG PO BID Prescribed by: LATRICIA ARTEAGA on 01/17/20 1006 Patient Home Medication List Home Medication List Reviewed: Yes Review of Systems Review of Systems Constitutional: no symptoms reported EENTM: see HPI Respiratory: no symptoms reported Cardiovascular: no symptoms reported Gastrointestinal: see HPI Genitourinary: no symptoms reported Musculoskeletal: no symptoms reported Skin: no symptoms reported Psychiatric/Neurological: See HPI Hematologic/Lymphatic: No Symptoms Reported Immunological/Allergic: no symptoms reported Past Nleugjh-Rbdvmw-Odwepb Hx Patient Social History Drug of Choice: meth and marijuana Type Used: Cigarettes 2nd Hand Smoke Exposure: Yes Recent Foreign Travel: No Contact w/Someone Who Travel: No Recent Hopitalizations: No Immunizations Up To Date Tetanus Booster (TDap): Less than 5yrs Seasonal Allergies Seasonal Allergies: No Past Medical History Surgeries: Yes (I&D OF ABSCESS TO CHIN/NECK AREA) Respiratory: No Currently Using CPAP: No Currently Using BIPAP: No Cardiac: No Neurological: No Genitourinary: No Gastrointestinal: Yes (HEPATITIS) Liver Disease/Jaundice, Hepatitis Musculoskeletal: No Endocrine: Yes (TYPE 1 DIABETES) Diabetes, Insulin dep HEENT: No Cancer: No Psychosocial: Yes (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 1.6oz. 73.512057qu; 21.00 BMI Method:Stated General Appearance: No Apparent Distress, WD/WN Eyes: Bilateral Eye Normal Inspection, Bilateral Eye PERRL, Bilateral Eye EOMI HEENT: PERRL/EOMI, TMs Normal, Pharynx Normal Respiratory: Lungs Clear, Normal Breath Sounds, No Accessory Muscle Use Cardiovascular: Regular Rate, Rhythm, Normal Peripheral Pulses Gastrointestinal: Normal Bowel Sounds, Non Tender, Soft Extremity: Normal Inspection, Normal Range of Motion Neurologic/Psychiatric: Alert, Oriented x3, No Motor/Sensory Deficits, Other (, anxious) Skin: Normal Color, Warm/Dry Progress/Results/Core Measures Suspected Sepsis SIRS Temperature: Pulse: Respiratory Rate: Laboratory Tests 11/28/20 16:10: White Blood Count 5.9 Blood Pressure / Mean: Laboratory Tests 07/18/20 16:10: Creatinine 1.04, Platelet Count 292, Total Bilirubin 0.3 Results/Orders Lab Results Laboratory Tests Test 07/18/20 16:02 07/18/20 16:10 07/18/20 16:16 Range/Units Urine Color YELLOW Urine Clarity CLEAR Urine pH 5.5 5-9 Urine Specific [place] 1.025 H 1.016-1.022 Urine Protein NEGATIVE NEGATIVE Urine Glucose (UA) NEGATIVE NEGATIVE Urine Ketones NEGATIVE NEGATIVE Urine Nitrite NEGATIVE NEGATIVE Urine Bilirubin NEGATIVE NEGATIVE Urine Urobilinogen 0.2 < = 1.0 MG/DL Urine Leukocyte Esterase NEGATIVE NEGATIVE Urine RBC (Auto) NEGATIVE NEGATIVE Urine RBC NONE /HPF Urine WBC RARE /HPF Urine Crystals NONE /LPF Urine Bacteria NEGATIVE /HPF Urine Casts NONE /LPF Urine Mucus NEGATIVE /LPF Urine Culture Indicated NO Urine Opiates Screen NEGATIVE NEGATIVE Urine Oxycodone Screen NEGATIVE NEGATIVE Urine Methadone Screen NEGATIVE NEGATIVE Urine Propoxyphene Screen NEGATIVE NEGATIVE Urine Barbiturates Screen NEGATIVE NEGATIVE Ur Tricyclic Antidepressants Screen NEGATIVE NEGATIVE Urine Phencyclidine Screen NEGATIVE NEGATIVE Urine Amphetamines Screen POSITIVE H NEGATIVE Urine Methamphetamines Screen POSITIVE H NEGATIVE Urine Benzodiazepines Screen NEGATIVE NEGATIVE Urine Cocaine Screen NEGATIVE NEGATIVE Urine Cannabinoids Screen NEGATIVE NEGATIVE White Blood Count 5.9 4.3-11.0 10^3/uL Red Blood Count 4.65 4.30-5.52 10^6/uL Hemoglobin 14.4 13.3-17.7 g/dL Hematocrit 44 40-54 % Mean Corpuscular Volume 94 80-99 fL Mean Corpuscular Hemoglobin 31 25-34 pg Mean Corpuscular Hemoglobin Concent 33 32-36 g/dL Red Cell Distribution Width 12.4 10.0-14.5 % Platelet Count 292 130-400 10^3/uL Mean Platelet Volume 10.4 9.0-12.2 fL Immature Granulocyte % (Auto) 0 % Neutrophils (%) (Auto) 57 42-75 % Lymphocytes (%) (Auto) 27 12-44 % Monocytes (%) (Auto) 8 0-12 % Eosinophils (%) (Auto) 6 0-10 % Basophils (%) (Auto) 2 0-10 % Neutrophils # (Auto) 3.4 1.8-7.8 10^3/uL Lymphocytes # (Auto) 1.6 1.0-4.0 10^3/uL Monocytes # (Auto) 0.5 0.0-1.0 10^3/uL Eosinophils # (Auto) 0.3 0.0-0.3 10^3/uL Basophils # (Auto) 0.1 0.0-0.1 10^3/uL Immature Granulocyte # (Auto) 0.0 0.0-0.1 10^3/uL Sodium Level 134 L 135-145 MMOL/L Potassium Level 3.9 3.6-5.0 MMOL/L Chloride Level 99 98-107 MMOL/L Carbon Dioxide Level 25 21-32 MMOL/L Anion Gap 10 5-14 MMOL/L Blood Urea Nitrogen 11 7-18 MG/DL Creatinine 1.04 0.60-1.30 MG/DL Estimat Glomerular Filtration Rate > 60 BUN/Creatinine Ratio 11 Glucose Level 341 H 70-105 MG/DL Calcium Level 8.5 8.5-10.1 MG/DL Corrected Calcium 8.5 8.5-10.1 MG/DL Total Bilirubin 0.3 0.1-1.0 MG/DL Aspartate Amino Transf (AST/SGOT) 28 5-34 U/L Alanine Aminotransferase (ALT/SGPT) 38 0-55 U/L Alkaline Phosphatase 87 40-136 U/L Total Protein 6.9 6.4-8.2 GM/DL Albumin 4.0 3.2-4.5 GM/DL Serum Alcohol < 10 <10 MG/DL My Orders Orders - BRADLY CORDOBA AUTOMOBILE INSPECTOR Cbc With Automated Diff (07/18/20 15:37) Comprehensive Metabolic Panel (07/18/20 15:37) Ua Culture If Indicated (07/18/20 15:37) Alcohol (07/18/20 15:37) Drug Screen Stat (Urine) (07/18/20 15:37) Ondansetron Oral Dissolve Tab (Zofran (07/18/20 16:36) Ondansetron Oral Dissolve Tab (Zofran (07/18/20 16:36) Olanzapine Orally Dissolve Tab (Zyprexa (07/18/20 17:15) Coronavirus Sars-Cov-2 So 2018 (07/18/20 17:15) Medications Given in ED Current Medications Medications Dose Ordered Sig/Andre Route Start Time Stop Time Status Last Admin Dose Admin Olanzapine 5 mg ONCE ONCE PO 07/18/20 17:15 07/18/20 17:16 DC 07/18/20 16:45 5 MG Vital Signs/I&O 07/18/20 07/18/20 15:35 17:40 Temp 36.9 36.9 Pulse 107 80 Resp 20 18 B/P (MAP) 147/93 (111) 142/95 Pulse Ox 100 96 O2 Delivery Room Air Room Air Capillary Refill : Progress Note : Progress Note Was given Zofran 8 mg ODT in ED for nausea and reported improvement of symptoms. Basic labs ordered to assess for signs of infection, and hgb levels. He is obviously withdrawing from methamphetamines at this time. Labs reviewed and are unremarkable. During examination, patient also noted that he took 3 of his friends Zyprexa 5mg last night due to severe psychosis. States he thought somebody was coming after him and took off running through his neighbor's house. Verbalized he is scared he is going to harm somebody when he has these episodes of psychosis. He received Zyprexa 5 mg prior to discharge. Called Dr. Bedoya to schedule appointment for Monday if possible to ensure he is able to continue Zyprexa. [facility] to call patient tomorrow to schedule appointment. He was given a week's worth of Zyprexa and instructed to follow-up as directed and to take medication as directed. Also discussed keeping plan to enter [facility] on July 29 and to avoid using methamphetamines. He verbalized understanding and ap preciation for assistance. Discussed following up with his primary care provider to see about possible referral for EGD if symptoms persist. Departure Impression Primary Impression: Nausea and vomiting Additional Impression: Withdrawal from methamphetamine Disposition: 01 HOME, SELF-CARE Condition: Improved Departure-Patient Inst. Referrals: [facility] (PCP/Family) Primary Care Physician Patient Instructions: Nausea and Vomiting, Adult Add. Discharge Instructions: Plan: 1. [facility] will call you tomorrow to schedule you an appointment for Monday. 2. Take Protonix 20mg daily as directed. Discuss scheduling EGD with you primary care provider. 3. May take Zofran 4mg by mouth every 4 hours as needed for nausea. 4. Keep appointment for [facility] on July 29 as scheduled. 5. Return for any new, worsening, or concerning symptoms. Scripts Olanzapine (Olanzapine) 5 Mg Tablet 5 MG PO DAILY for 7 Days, #7 TAB 0 Refills Prov: BRADLY CORDOBA AUTOMOBILE INSPECTOR 07/18/20 Ondansetron (Ondansetron Odt) 4 Mg Tab.rapdis 4 MG PO Q4H PRN for NAUSEA-1ST LINE, #30 TAB 0 Refills Prov: BRADLY CORDOBA AUTOMOBILE INSPECTOR 07/18/20 Pantoprazole Sodium (Pantoprazole Sodium) 20 Mg Tablet.dr 20 MG PO DAILY for 14 Days, #14 TAB 0 Refills Prov: BRADLY CORDOBA AUTOMOBILE INSPECTOR 07/18/20 BRADLY CORDOBA AUTOMOBILE INSPECTOR Jul 18, 2020 15:41
[2020-07-18 16:21] LABS: BILIRUBIN,URINE NEGATIVE (NEGATIVE); CLARITY,URINE CLEAR; COLOR,URINE YELLOW; GLUCOSE, URINE (UA) NEGATIVE (NEGATIVE); KETONES,URINE NEGATIVE (NEGATIVE); LEUKOCYTE ESTERASE ,URINE NEGATIVE (NEGATIVE); NITRITE,URINE NEGATIVE (NEGATIVE); PH,URINE 5.5 (5-9); PROTEIN,URINE NEGATIVE (NEGATIVE)
[2020-07-18 16:24] LABS: BACTERIA,URINE NEGATIVE /HPF; WBC,URINE RARE /HPF
[2020-07-18 16:31] LABS: AMPHETAMINE SCREEN, URINE POSITIVE (NEGATIVE); BARBITURATE SCREEN URINE NEGATIVE (NEGATIVE); BENZODIAZEPINES SCREEN URINE NEGATIVE (NEGATIVE); CANNABINOID SCREEN, URINE NEGATIVE (NEGATIVE); COCAINE SCREEN URINE NEGATIVE (NEGATIVE); METHADONE STAT NEGATIVE (NEGATIVE); METHAMPHETAMINE SCREEN URINE S POSITIVE (NEGATIVE); OPIATE SCREEN URINE NEGATIVE (NEGATIVE); OXYCODONE STAT NEGATIVE (NEGATIVE); PROPOXYPHENE STAT NEGATIVE (NEGATIVE); TRICYCLIC ANTIDEPRESSANTS SCRE NEGATIVE (NEGATIVE)
[2020-07-18 16:35] LABS: BASOPHILS # (AUTO) 0.1 10^3/uL (0.0-0.1); BASOPHILS % (AUTO) 2 % (0-10); EOSINOPHILS # (AUTO) 0.3 10^3/uL (0.0-0.3); EOSINOPHILS % (AUTO) 6 % (0-10); HEMATOCRIT 44 % (40-54); HEMOGLOBIN 14.4 g/dL (13.3-17.7); LYMPHOCYTES # (AUTO) 1.6 10^3/uL (1.0-4.0); LYMPHOCYTES % (AUTO) 27 % (12-44); MEAN CORPUSCULAR HEMOGLOBIN 31 pg (25-34); MEAN CORPUSCULAR HGB CONC 33 g/dL (32-36); MEAN CORPUSCULAR VOLUME 94 fL (80-99); MEAN PLATELET VOLUME 10.4 fL (9.0-12.2); MONOCYTES # (AUTO) 0.5 10^3/uL (0.0-1.0); MONOCYTES % (AUTO) 8 % (0-12); NEUTROPHILS # (AUTO) 3.4 10^3/uL (1.8-7.8); NEUTROPHILS % (AUTO) 57 % (42-75); PLATELET COUNT 292 10^3/uL (130-400); WHITE BLOOD COUNT 5.9 10^3/uL (4.3-11.0)
[2020-07-18] MEDS ORDERED: ONDANSETRON 4 MG (ZOFRAN) ORAL DISSOLVE TAB PO STA (16:36)
[2020-07-18] MEDS ORDERED: ONDANSETRON 4 MG (ZOFRAN) ORAL DISSOLVE TAB ONE (16:36)
[2020-07-18 16:45] LABS: CHLORIDE 99 MMOL/L (98-107); POTASSIUM 3.9 MMOL/L (3.6-5.0); SODIUM 134 MMOL/L (135-145)
[2020-07-18 16:46] LABS: CALCIUM 8.5 MG/DL (8.5-10.1)
[2020-07-18 16:47] LABS: GLUCOSE 341 MG/DL (70-105); TOTAL PROTEIN 6.9 GM/DL (6.4-8.2)
[2020-07-18 16:48] LABS: CARBON DIOXIDE 25 MMOL/L (21-32)
[2020-07-18 16:49] LABS: BILIRUBIN,TOTAL 0.3 MG/DL (0.1-1.0)
[2020-07-18 16:50] LABS: ALKALINE PHOSPHATASE 87 U/L (40-136)
[2020-07-18 16:51] LABS: CREATININE SERUM 1.04 MG/DL (0.60-1.30); GFR ESTIMATED > 60
[2020-07-18 16:52] LABS: BUN/CREATININE RATIO 11
[2020-07-18 16:54] LABS: ALANINE AMINOTRANSFERASE 38 U/L (0-55)
[2020-07-18] MEDS ORDERED: OLANZapine 5 MG ODT (ZyPREXA ZYDIS) PO ONE (17:15)
[2020-07-18] MEDS ORDERED: PANT20TA18 PO (17:15)
[2020-07-18] MEDS ORDERED: ONDA4TAB11 PO (17:15)
[2020-07-18] MEDS ORDERED: OLAN5TAB25 PO (17:19)
[2020-07-18 17:40] VITALS: BP 142/95
== END 2020-07-18 17:40 | disposition home or self-care (01) ==
LOC: EDUNIT# 15:06 → ER 15:07
DX: R11.2 Nausea with vomiting, unspecified (principal); F15.23 Other stimulant dependence with withdrawal; F41.9 Anxiety disorder, unspecified; E10.9 Type 1 diabetes mellitus without complications; F31.9 Bipolar disorder, unspecified; F20.9 Schizophrenia, unspecified; Z20.828 Contact with and (suspected) exposure to other viral communicable diseases; Z82.49 Family history of ischemic heart disease and other diseases of the circulatory system; Z82.61 Family history of arthritis; Z77.22 Contact with and (suspected) exposure to environmental tobacco smoke (acute) (chronic); Z79.52 Long term (current) use of systemic steroids
CPT/HCPCS: 80053; 80306; 81000; 85025; 99283; G0480; U0002; 36415; 80320; 87635

== ENCOUNTER 2020-09-16 11:56 | Emergency (ER) | payer OTHER ==
[~2020-09-16] VITALS: Ht 175 cm; Wt 54.0 kg
[~2020-09-16 11:56] MED LIST changes: +OLAN5TAB25 PO; +PANT20TA18 PO
[2020-09-16 12:10] LABS: BASOPHILS # (AUTO) 0.1 10^3/uL (0.0-0.1); BASOPHILS % (AUTO) 1 % (0-10); EOSINOPHILS # (AUTO) 0.6 10^3/uL (0.0-0.3); EOSINOPHILS % (AUTO) 7 % (0-10); HEMATOCRIT 40 % (40-54); HEMOGLOBIN 13.7 g/dL (13.3-17.7); LYMPHOCYTES # (AUTO) 2.8 10^3/uL (1.0-4.0); LYMPHOCYTES % (AUTO) 31 % (12-44); MEAN CORPUSCULAR HEMOGLOBIN 31 pg (25-34); MEAN CORPUSCULAR HGB CONC 34 g/dL (32-36); MEAN CORPUSCULAR VOLUME 91 fL (80-99); MEAN PLATELET VOLUME 10.4 fL (9.0-12.2); MONOCYTES # (AUTO) 0.6 10^3/uL (0.0-1.0); MONOCYTES % (AUTO) 7 % (0-12); NEUTROPHILS % (AUTO) 54 % (42-75); PLATELET COUNT 349 10^3/uL (130-400); WHITE BLOOD COUNT 9.1 10^3/uL (4.3-11.0)
[2020-09-16 12:14] LABS: ALBUMIN 3.6 GM/DL (3.2-4.5); CHLORIDE 101 MMOL/L (98-107); POTASSIUM 4.3 MMOL/L (3.6-5.0); SODIUM 134 MMOL/L (135-145)
[2020-09-16] MEDS ORDERED: ASPIRIN 81 MG CHEW (CHILDREN'S ASA) PO ONE (12:15)
[2020-09-16 12:16] LABS: CALCIUM 8.8 MG/DL (8.5-10.1)
[2020-09-16 12:17] LABS: GLUCOSE 312 MG/DL (70-105); TOTAL PROTEIN 6.4 GM/DL (6.4-8.2)
[2020-09-16 12:18] LABS: CARBON DIOXIDE 25 MMOL/L (21-32); INR 0.9 (0.8-1.4); PROTHROMBIN TIME PATIENT 12.5 SEC (12.2-14.7)
[2020-09-16 12:19] LABS: BILIRUBIN,TOTAL 0.4 MG/DL (0.1-1.0)
[2020-09-16 12:20] LABS: ALKALINE PHOSPHATASE 87 U/L (40-136); GFR ESTIMATED > 60
[2020-09-16 12:21] LABS: BUN/CREATININE RATIO 18
--- NOTE | 2020-09-16 12:21 | Diagnostic Imaging Report ---
INDICATION: Chest pain. TIME OF EXAM: 12:12 p.m. Correlation is made with prior chest of 07/07/2020. FINDINGS: The heart size is normal. The pulmonary vascularity is unremarkable. The lungs are clear. No infiltrate, effusion or pneumothorax is detected. IMPRESSION: No acute cardiopulmonary process is detected. Dictated by: Dictated on workstation # [id number]
--- NOTE | 2020-09-16 12:22 | ED Chest Pain ---
General Chief Complaint: Chest Pain Stated Complaint: CP Source: patient Exam Limitations: no limitations History of Present Illness Date Seen by Provider: Sep 16, 2020 Time Seen by Provider: 12:00 Initial Comments 39-year-old male who was brought to the emergency room by [facility] for complaints of right-sided chest wall pain for the past several months. He reports today that he was moving heavy furniture when he had worsening chest wall pain became very dizzy. He denies loss of consciousness. He denies any shortness of breath, cough, nausea or vomiting. He reports that his chest pain has resolved and is feeling better at this time. He reports that he smoked meth yesterday and uses it frequently. Patient reports that the chest wall pain is worse with deep breathing. He reports he has been evaluated for this before. 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: Yes NTG SL SEAMLESS TUBE ROLLER: No Associated Symptoms: syncope Allergies and Home Medications Allergies Coded Allergies: No Known Drug Allergies (Unverified , 12/02/13) Home Medications Hydroxyzine HCl 50 Mg Tablet, 50 MG PO Q6H PRN for NAUSEA/VOMITING Prescribed by: MOE SOLITARIO on 02/23/20 2221 Insulin Aspart 300 Units/3 Ml Solution, 16 UNITS SQ AC, (Reported) Insulin Degludec 100 Unit/1 Ml Insuln.pen, 40 UNIT SQ HS, (Reported) Olanzapine 5 Mg Tablet, 5 MG PO DAILY Prescribed by: BRADLY CORDOBA on 07/18/20 171 Ondansetron 4 Mg Tab.rapdis, 4 MG PO Q6H PRN for NAUSEA/VOMITING Prescribed by: CHRISTINE ELLIOTT on 05/06/20 1006 Ondansetron 4 Mg Tab.rapdis, 4 MG PO Q4H PRN for NAUSEA-1ST LINE Prescribed by: BRADLY CORDOBA on 07/18/20 171 Pantoprazole Sodium 20 Mg Tablet.dr, 20 MG PO DAILY Prescribed by: BRADLY CORDOBA on 07/18/20 171 Pravastatin Sodium 20 Mg Tablet, 20 MG PO DAILY, (Reported) Prednisone 20 Mg Tab, 40 MG PO DAILY Prescribed by: MOE SOLITARIO on 07/07/20 184 Risperidone 1 Mg Tablet, 1 MG PO BID Prescribed by: LATRICIA ARTEAGA on 01/17/20 1006 Patient Home Medication List Home Medication List Reviewed: Yes Review of Systems Review of Systems Constitutional: see HPI; No chills, No fever Cardiovascular: See HPI, Chest Pain, Syncope All Other Systems Reviewed Negative Unless Noted: Yes Past Rltgtar-Pygzdc-Jsqjkw Hx Past Med/Social Hx: Reviewed Nursing Past Med/Soc Hx Patient Social History Alcohol Use: Denies Use Drug of Choice: meth and marijuana Type Used: Cigarettes 2nd Hand Smoke Exposure: Yes Recent Hopitalizations: No Immunizations Up To Date Tetanus Booster (TDap): Less than 5yrs Seasonal Allergies Seasonal Allergies: No Past Medical History Surgeries: Yes (I&D OF ABSCESS TO CHIN/NECK AREA) Respiratory: No Currently Using CPAP: No Currently Using BIPAP: No Cardiac: No Neurological: No Genitourinary: No Gastrointestinal: Yes (HEPATITIS) Liver Disease/Jaundice, Hepatitis Musculoskeletal: No Endocrine: Yes (TYPE 1 DIABETES) Diabetes, Insulin dep HEENT: No Cancer: No Psychosocial: Yes (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) ADD/ADHD, Anxiety, Bipolar, Schizophrenia, Depression Integumentary: Yes (HX OF MRSA) Blood Disorders: No Family Medical History Reviewed Nursing Family Hx Alcoholism G8 BROTHER Arthritis Asthma 19 MOTHER (copd & hypotention) Cardiovascular disease 19 FATHER (cva) Completed stroke 19 FATHER Hypercholesterolemia 19 FATHER G8 SISTER Hypertension 19 FATHER Thyroid disease G8 SISTER (hyperthyroid) Physical Exam Vital Signs Vital Signs - First Documented 09/16/20 12:00 Temp 36.6 Pulse 103 Resp 20 B/P (MAP) 150/88 (108) Pulse Ox 100 Capillary Refill : Less Than 3 Seconds Height, Weight, BMI Height: 5'8.00" Weight: 162lbs. 1.6oz. [id number]; 21.00 BMI Method:Stated General Appearance: No Apparent Distress, WD/WN HEENT: PERRL/EOMI, TMs Normal, Normal ENT Inspection, Pharynx Normal Respiratory: Chest Non Tender, Lungs Clear, Normal Breath Sounds, No Accessory Muscle Use, No Respiratory Distress Cardiovascular: Regular Rate, Rhythm, No Edema, No Gallop, No JVD, No Murmur, Normal Peripheral Pulses Gastrointestinal: Normal Bowel Sounds, No Organomegaly, No Pulsatile Mass, Non Tender Extremity: No Pedal Edema Neurologic/Psychiatric: Alert, Oriented x3, Normal Mood/Affect Skin: Normal Color, Warm/Dry Progress/Results/Core Measures Results/Orders Lab Results Laboratory Tests Test 09/16/20 12:00 09/16/20 12:51 Range/Units White Blood Count 9.1 4.3-11.0 10^3/uL Red Blood Count 4.44 4.30-5.52 10^6/uL Hemoglobin 13.7 13.3-17.7 g/dL Hematocrit 40 40-54 % Mean Corpuscular Volume 91 80-99 fL Mean Corpuscular Hemoglobin 31 25-34 pg Mean Corpuscular Hemoglobin Concent 34 32-36 g/dL Red Cell Distribution Width 11.8 10.0-14.5 % Platelet Count 349 130-400 10^3/uL Mean Platelet Volume 10.4 9.0-12.2 fL Immature Granulocyte % (Auto) 0 % Neutrophils (%) (Auto) 54 42-75 % Lymphocytes (%) (Auto) 31 12-44 % Monocytes (%) (Auto) 7 0-12 % Eosinophils (%) (Auto) 7 0-10 % Basophils (%) (Auto) 1 0-10 % Neutrophils # (Auto) 5.0 1.8-7.8 10^3/uL Lymphocytes # (Auto) 2.8 1.0-4.0 10^3/uL Monocytes # (Auto) 0.6 0.0-1.0 10^3/uL Eosinophils # (Auto) 0.6 H 0.0-0.3 10^3/uL Basophils # (Auto) 0.1 0.0-0.1 10^3/uL Immature Granulocyte # (Auto) 0.0 0.0-0.1 10^3/uL Prothrombin Time 12.5 12.2-14.7 SEC INR Comment 0.9 0.8-1.4 Activated Partial Thromboplast Time 27 24-35 SEC Sodium Level 134 L 135-145 MMOL/L Potassium Level 4.3 3.6-5.0 MMOL/L Chloride Level 101 98-107 MMOL/L Carbon Dioxide Level 25 21-32 MMOL/L Anion Gap 8 5-14 MMOL/L Blood Urea Nitrogen 18 7-18 MG/DL Creatinine 1.00 0.60-1.30 MG/DL Estimat Glomerular Filtration Rate > 60 BUN/Creatinine Ratio 18 Glucose Level 312 H 70-105 MG/DL Calcium Level 8.8 8.5-10.1 MG/DL Corrected Calcium 9.1 8.5-10.1 MG/DL Magnesium Level 1.9 1.6-2.4 MG/DL Total Bilirubin 0.4 0.1-1.0 MG/DL Aspartate Amino Transf (AST/SGOT) 18 5-34 U/L Alanine Aminotransferase (ALT/SGPT) 16 0-55 U/L Alkaline Phosphatase 87 40-136 U/L Myoglobin 72.0 10.0-92.0 NG/ML Troponin I < 0.028 <0.028 NG/ML Total Protein 6.4 6.4-8.2 GM/DL Albumin 3.6 3.2-4.5 GM/DL Urine Color YELLOW Urine Clarity CLEAR Urine pH 7.5 5-9 Urine Specific [place] 1.015 L 1.016-1.022 Urine Protein NEGATIVE NEGATIVE Urine Glucose (UA) 3+ H NEGATIVE Urine Ketones NEGATIVE NEGATIVE Urine Nitrite NEGATIVE NEGATIVE Urine Bilirubin NEGATIVE NEGATIVE Urine Urobilinogen 0.2 < = 1.0 MG/DL Urine Leukocyte Esterase NEGATIVE NEGATIVE Urine RBC (Auto) NEGATIVE NEGATIVE Urine RBC NONE /HPF Urine WBC NONE /HPF Urine Crystals NONE /LPF Urine Bacteria NEGATIVE /HPF Urine Casts NONE /LPF Urine Mucus NEGATIVE /LPF Urine Culture Indicated NO Urine Opiates Screen NEGATIVE NEGATIVE Urine Oxycodone Screen NEGATIVE NEGATIVE Urine Methadone Screen NEGATIVE NEGATIVE Urine Propoxyphene Screen NEGATIVE NEGATIVE Urine Barbiturates Screen NEGATIVE NEGATIVE Ur Tricyclic Antidepressants Screen NEGATIVE NEGATIVE Urine Phencyclidine Screen NEGATIVE NEGATIVE Urine Amphetamines Screen POSITIVE H NEGATIVE Urine Methamphetamines Screen POSITIVE H NEGATIVE Urine Benzodiazepines Screen NEGATIVE NEGATIVE Urine Cocaine Screen NEGATIVE NEGATIVE Urine Cannabinoids Screen NEGATIVE NEGATIVE My Orders Orders - DOMINIC LINDQUIST Cbc With Automated Diff (09/16/20 12:03) Magnesium (09/16/20 12:03) Chest 1 View, Ap/Pa Only (09/16/20 12:03) Ekg Tracing (09/16/20 12:03) Comprehensive Metabolic Panel (09/16/20 12:03) Myoglobin Serum (09/16/20 12:03) Protime With Inr (09/16/20 12:03) Partial Thromboplastin Time (09/16/20 12:03) O2 (09/16/20 12:03) Monitor-Rhythm Ecg Trace Only (09/16/20 12:03) Lipid Panel (09/17/20 06:00) Ed Iv/Invasive Line Start (09/16/20 12:03) Troponin I (09/16/20 12:03) Aspirin Chewable Tablet (Baby Aspirin Ch (09/16/20 12:15) Ua Culture If Indicated (09/16/20 12:46) Drug Screen Stat (Urine) (09/16/20 12:46) Vital Signs/I&O 09/16/20 12:00 Temp 36.6 Pulse 103 Resp 20 B/P (MAP) 150/88 (108) Pulse Ox 100 Progress Progress Note : Time: 12:52 Progress Note I have seen and evaluated patient. He reports that he is feeling back to normal at this time. I informed him that his blood sugar was 312 and he reports that he just took his morning insulin just prior to arrival and asked to not treat his blood sugar at this time. Initial ECG Impression Date: Sep 16, 2020 Initial ECG Impression Time: 12:05 Initial ECG Rate: 88 Initial ECG Rhythm: Normal Sinus Initial ECG Intervals: Normal Initial ECG Impression: Normal Initial ECG Comparisson: Unchanged Departure Impression Primary Impression: Right-sided chest wall pain Additional Impression: Methamphetamine use Disposition: 01 HOME, SELF-CARE Condition: Stable/Unchanged Departure-Patient Inst. Decision time for Depature: 12:58 Referrals: [facility] (PCP/Family) Primary Care Physician Patient Instructions: Chest Pain That Is Not Caused by the Heart (DC) Add. Discharge Instructions: You may use ibuprofen and Tylenol as needed for pain relief. Drink fluids to stay hydrated. Monitor your blood sugars and dose your insulin appropriately. Call today to schedule an appointment for your primary care provider for a follow-up within 1 week. Return back to the emergency room for worsening symptoms or concerns as needed. All discharge instructions reviewed with patient and/or family. Voiced unde rstanding. DOMINIC LINDQUIST Sep 16, 2020 12:21
[2020-09-16 12:23] LABS: ALANINE AMINOTRANSFERASE 16 U/L (0-55); MAGNESIUM 1.9 MG/DL (1.6-2.4)
[2020-09-16 12:55] LABS: BILIRUBIN,URINE NEGATIVE (NEGATIVE); CLARITY,URINE CLEAR; COLOR,URINE YELLOW; GLUCOSE, URINE (UA) 3+ (NEGATIVE); KETONES,URINE NEGATIVE (NEGATIVE); LEUKOCYTE ESTERASE ,URINE NEGATIVE (NEGATIVE); NITRITE,URINE NEGATIVE (NEGATIVE); PH,URINE 7.5 (5-9); PROTEIN,URINE NEGATIVE (NEGATIVE)
[2020-09-16 13:05] LABS: BACTERIA,URINE NEGATIVE /HPF
[2020-09-16 13:12] LABS: AMPHETAMINE SCREEN, URINE POSITIVE (NEGATIVE); BARBITURATE SCREEN URINE NEGATIVE (NEGATIVE); BENZODIAZEPINES SCREEN URINE NEGATIVE (NEGATIVE); CANNABINOID SCREEN, URINE NEGATIVE (NEGATIVE); COCAINE SCREEN URINE NEGATIVE (NEGATIVE); METHADONE STAT NEGATIVE (NEGATIVE); METHAMPHETAMINE SCREEN URINE S POSITIVE (NEGATIVE); OPIATE SCREEN URINE NEGATIVE (NEGATIVE); OXYCODONE STAT NEGATIVE (NEGATIVE); PROPOXYPHENE STAT NEGATIVE (NEGATIVE); TRICYCLIC ANTIDEPRESSANTS SCRE NEGATIVE (NEGATIVE)
[2020-09-16 14:24] VITALS: BP 137/82
== END 2020-09-16 14:24 | disposition home or self-care (01) ==
LOC: EDUNIT# 11:56 → ER 11:59
DX: R07.89 Other chest pain (principal); F15.90 Other stimulant use, unspecified, uncomplicated; F41.9 Anxiety disorder, unspecified; F20.9 Schizophrenia, unspecified; F31.9 Bipolar disorder, unspecified; Z82.49 Family history of ischemic heart disease and other diseases of the circulatory system; Z82.61 Family history of arthritis; Z77.22 Contact with and (suspected) exposure to environmental tobacco smoke (acute) (chronic); Z79.52 Long term (current) use of systemic steroids
CPT/HCPCS: 36415; 71045; 80053; 80306; 81000; 83735; 83874; 84484; 85025; 85610; 85730; 93005; 93041

== ENCOUNTER 2020-10-02 00:46 | Emergency (ER) | payer SELFPAY ==
[~2020-10-02] VITALS: Ht 175.2 cm; Wt 68.0 kg
--- NOTE | 2020-10-02 01:17 | ED General ---
General Stated Complaint: PAIN & COOLNESS IN HANDS Source of Information: Patient (VERY DIFFICULT HISTORIAN--SPEECH VERY RAPID AND ERRATIC, DIFFICULT TO KEEP ON SUBJECT) History of Present Illness Date Seen by Provider: Oct 02, 2020 Time Seen by Provider: 00:58 Initial Comments PT ARRIVES--STATES HE WALKED HERE FROM [facility] STATES HE HAS SCHIZOAFFECTIVE DISORDER, AND HAS BEEN OUT OF HIS ZYPREXA FOR THE LAST 2 WEEKS--STATES HE HAS REFILLS AND SIMPLY HAS NOT GONE TO PHARMACY AND PICKED IT UP--WANTS A ZYPREXA FOR TONIGHT STATES HE "GOT KICKED OUT OF THE PLACE I WAS STAYING YESTERDAY" AND WAS TRYING TO SLEEP IN THE [place]AY OF [facility] STATES THAT HE HAS HAD BILATERAL HAND DISCOMFORT--"FEELS LIKE THEY ARE VIBRATING REALLY FAST" "AND THEN IT BECAME PAIN" --IS UNCLEAR HOW LONG THIS HAS BEEN GOING ON--STATES "I HAD COVID IN JULY AND GOT OFF QUARANTINE 08/09/20. NO HOSPITALIZATION. STATES HE "JUST MOVED HERE" FROM [place] IN FEBRUARY, BUT AT SOME POINT WAS HOSPITALIZED "SOMEWHERE IN [place]" FOR MENTAL HEALTH AT SOME TIME. STATES HE WAS ON RISPERDAL WHEN HE LIVED IN [place], BUT WHEN HE WAS [facility] THEY SWITCHED HIM TO ZYPREXA--STATES IT HAD BEEN WORKING WELL FOR HIM STATES HE WAS SEEN HERE AND WAS GIVEN A REFILL, AND THEN HE HAS BEEN TO [facility] TWICE AND THEY REFILLED HIS MEDICATION, BUT HAS NOT SEEN ANYONE FOR MENTAL HEALTH HERE. ( OLD RECORDS STATE THAT HE HAS BEEN ESTABLISHED WITH [facility] IN THE PAST) PT HAS HAD 14 VISITS HERE SINCE 01/16/20 LAST VISIT HERE 09/16/20 FOR CHEST WALL PAIN AFTER LIFTING HEAVY OBJECT HERE 07/18/20 FOR NAUSEA/VOMITING AND WAS GIVEN RX FOR ZYPREXA #7 PILLS SEEN AT [facility] 07/12/20, STATING HE HAD JUST BEEN RELEASED THAT DAY FROM [facility] AT [facility]-BEING SEEN FOR ELEVATED BLOOD GLUCOSE--PT IS TYPE 1 DIABETIC PT WITH LONG HISTORY OF NON-COMPLIANCE WITH DIABETES, IN ALL ASPECTS OF CARE PT IS IV METH USER, STATES HE LAST USED YESTERDAY. ALSO HAS HISTORY OF IV COCAINE USE WELL. PT ALSO SMOKES 1 PPD OF CIGARETTES WANTING MULTIPLE THINGS ON ARRIVAL--WARM BLANKET, SOMETHING TO EAT AND DRINK, ETC. TEMP IS 10 DEGREES OUTSIDE TONIGHT. WITH WIND CHILL -2 DEGREES. PCP; [facility], [facility] Allergies and Home Medications Allergies Coded Allergies: No Known Drug Allergies (Unverified , 12/02/13) Home Medications Hydroxyzine HCl 50 Mg Tablet, 50 MG PO Q6H PRN for NAUSEA/VOMITING Prescribed by: MOE SOLITARIO on 02/23/20 2221 Insulin Aspart 300 Units/3 Ml Solution, 16 UNITS SQ AC, (Reported) Insulin Degludec 100 Unit/1 Ml Insuln.pen, 40 UNIT SQ HS, (Reported) Olanzapine 5 Mg Tablet, 5 MG PO DAILY Prescribed by: BRADLY CORDOBA on 07/18/20 1719 Ondansetron 4 Mg Tab.rapdis, 4 MG PO Q6H PRN for NAUSEA/VOMITING Prescribed by: CHRISTINE ELLIOTT on 05/06/20 1006 Ondansetron 4 Mg Tab.rapdis, 4 MG PO Q4H PRN for NAUSEA-1ST LINE Prescribed by: BRADLY CORDOBA on 07/18/20 171 Pantoprazole Sodium 20 Mg Tablet.dr, 20 MG PO DAILY Prescribed by: BRADLY CORDOBA on 07/18/20 1715 Pravastatin Sodium 20 Mg Tablet, 20 MG PO DAILY, (Reported) Prednisone 20 Mg Tab, 40 MG PO DAILY Prescribed by: MOE SOLITARIO on 07/07/20 1841 Risperidone 1 Mg Tablet, 1 MG PO BID Prescribed by: LATRICIA ARTEAGA on 01/17/20 1006 Patient Home Medication List Home Medication List Reviewed: Yes Review of Systems Review of Systems Constitutional: no symptoms reported EENTM: no symptoms reported Respiratory: no symptoms reported Cardiovascular: no symptoms reported Gastrointestinal: no symptoms reported Genitourinary: no symptoms reported Musculoskeletal: no symptoms reported Skin: no symptoms reported Psychiatric/Neurological: See HPI, Anxiety; Denies Headache, Denies Numbness, Denies Tingling, Denies Tremors, Denies Weakness Hematologic/Lymphatic: No Symptoms Reported Immunological/Allergic: no symptoms reported Past Lhmunfc-Pdutxn-Ykuhwa Hx Past Med/Social Hx: Reviewed and Corrections made Patient Social History Type Used: Cigarettes 2nd Hand Smoke Exposure: Yes Recent Hopitalizations: No Substance type: Amphetamines, Methamphetamine, Marijuana, Other (COCAINE) Immunizations Up To Date Tetanus Booster (TDap): Less than 5yrs Seasonal Allergies Seasonal Allergies: No Past Medical History Surgeries: Yes (I&D OF ABSCESS TO CHIN/NECK AREA) Respiratory: No Currently Using CPAP: No Currently Using BIPAP: No Cardiac: No Neurological: No Genitourinary: No Gastrointestinal: Yes (HEPATITIS--UNKNOWN TYPE) Liver Disease/Jaundice, Hepatitis Musculoskeletal: No Endocrine: Yes (TYPE 1 DIABETES) Diabetes, Insulin dep HEENT: No Cancer: No Psychosocial: Yes (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) ADD/ADHD, Anxiety, Suicide Attempts, Bipolar, Schizophrenia, Depression Integumentary: Yes (HX OF MRSA) Blood Disorders: No Family Medical History Alcoholism G8 BROTHER Arthritis Asthma 19 MOTHER (copd & hypotention) Cardiovascular disease 19 FATHER (cva) Completed stroke 19 FATHER Hypercholesterolemia 19 FATHER G8 SISTER Hypertension 19 FATHER Thyroid disease G8 SISTER (hyperthyroid) SOCIAL HISTORY: -HX OF ALCOHOL ABUSE, NOW ONLY "OCCASIONALLY" USES -DRUGS--EXTENSIVE IV METH USE, HX OF IV COCAINE USE, THC USE -SMOKES 1 PPD MULTIPLE PSYCH ADMITS Physical Exam Vital Signs Vital Signs - First Documented 10/02/20 00:55 Temp 35.8 Pulse 108 Resp 18 B/P (MAP) 114/86 (95) Pulse Ox 97 Capillary Refill : Height, Weight, BMI Height: 5'8.00" Weight: 162lbs. 1.6oz. 73.114525qb; 17.00 BMI Method:Stated General Appearance: No Apparent Distress, WD/WN, Anxious, Other (SPEECH RAPID AND ERRATIC, DIFFICULT TO KEEP ON SUBJECT, CONSTANT MOVEMENTS) HEENT: PERRL/EOMI Neck: Normal Inspection Respiratory: Normal Breath Sounds, No Accessory Muscle Use, No Respiratory Distress Cardiovascular: Regular Rate, Rhythm, No Murmur Gastrointestinal: Non Tender, Soft Back: Normal Inspection Extremity: Normal Capillary Refill, Normal Inspection, Normal Range of Motion, Non Tender, No Calf Tenderness, No Pedal Edema Neurologic/Psychiatric: Alert, Oriented x3, No Motor/Sensory Deficits, right of way worker II- XII Norm as Tested Skin: Normal Color, Warm/Dry, Other (MULTIPLE SORES, SCABS, SCARS OF VARIOUS AGES, MULTIPLE TRACK YARBROUGH PRESENT) Progress/Results/Core Measures Suspected Sepsis SIRS Temperature: Pulse: Respiratory Rate: Laboratory Tests 10/02/20 01:10: White Blood Count 10.4 Blood Pressure / Mean: Laboratory Tests 10/02/20 01:10: Creatinine 0.93, INR Comment 1.0, Platelet Count 361, Total Bilirubin 0.3 Results/Orders Lab Results Laboratory Tests Test 10/02/20 01:10 10/02/20 01:20 Range/Units White Blood Count 10.4 4.3-11.0 10^3/uL Red Blood Count 4.67 4.30-5.52 10^6/uL Hemoglobin 14.3 13.3-17.7 g/dL Hematocrit 42 40-54 % Mean Corpuscular Volume 90 80-99 fL Mean Corpuscular Hemoglobin 31 25-34 pg Mean Corpuscular Hemoglobin Concent 34 32-36 g/dL Red Cell Distribution Width 12.1 10.0-14.5 % Platelet Count 361 130-400 10^3/uL Mean Platelet Volume 10.2 9.0-12.2 fL Immature Granulocyte % (Auto) 0 % Neutrophils (%) (Auto) 49 42-75 % Lymphocytes (%) (Auto) 37 12-44 % Monocytes (%) (Auto) 8 0-12 % Eosinophils (%) (Auto) 6 0-10 % Basophils (%) (Auto) 1 0-10 % Neutrophils # (Auto) 5.1 1.8-7.8 10^3/uL Lymphocytes # (Auto) 3.9 1.0-4.0 10^3/uL Monocytes # (Auto) 0.8 0.0-1.0 10^3/uL Eosinophils # (Auto) 0.6 H 0.0-0.3 10^3/uL Basophils # (Auto) 0.1 0.0-0.1 10^3/uL Immature Granulocyte # (Auto) 0.0 0.0-0.1 10^3/uL Prothrombin Time 13.1 12.2-14.7 SEC INR Comment 1.0 0.8-1.4 Activated Partial Thromboplast Time 24 24-35 SEC Sodium Level 142 135-145 MMOL/L Potassium Level 3.9 3.6-5.0 MMOL/L Chloride Level 107 98-107 MMOL/L Carbon Dioxide Level 22 21-32 MMOL/L Anion Gap 13 5-14 MMOL/L Blood Urea Nitrogen 28 H 7-18 MG/DL Creatinine 0.93 0.60-1.30 MG/DL Estimat Glomerular Filtration Rate > 60 BUN/Creatinine Ratio 30 Glucose Level 76 70-105 MG/DL Calcium Level 8.7 8.5-10.1 MG/DL Corrected Calcium 8.7 8.5-10.1 MG/DL Magnesium Level 2.0 1.6-2.4 MG/DL Total Bilirubin 0.3 0.1-1.0 MG/DL Aspartate Amino Transf (AST/SGOT) 18 5-34 U/L Alanine Aminotransferase (ALT/SGPT) 25 0-55 U/L Alkaline Phosphatase 91 40-136 U/L Total Protein 7.1 6.4-8.2 GM/DL Albumin 4.0 3.2-4.5 GM/DL Serum Alcohol < 10 <10 MG/DL Urine Color YELLOW Urine Clarity CLEAR Urine pH 6.0 5-9 Urine Specific [place] 1.020 1.016-1.022 Urine Protein NEGATIVE NEGATIVE Urine Glucose (UA) 3+ H NEGATIVE Urine Ketones TRACE H NEGATIVE Urine Nitrite NEGATIVE NEGATIVE Urine Bilirubin NEGATIVE NEGATIVE Urine Urobilinogen 0.2 < = 1.0 MG/DL Urine Leukocyte Esterase NEGATIVE NEGATIVE Urine RBC (Auto) NEGATIVE NEGATIVE Urine RBC 0-2 /HPF Urine WBC NONE /HPF Urine Squamous Epithelial Cells RARE /HPF Urine Crystals NONE /LPF Urine Bacteria NEGATIVE /HPF Urine Casts NONE /LPF Urine Mucus SMALL H /LPF Urine Culture Indicated NO Urine Opiates Screen NEGATIVE NEGATIVE Urine Oxycodone Screen NEGATIVE NEGATIVE Urine Methadone Screen NEGATIVE NEGATIVE Urine Propoxyphene Screen NEGATIVE NEGATIVE Urine Barbiturates Screen NEGATIVE NEGATIVE Ur Tricyclic Antidepressants Screen NEGATIVE NEGATIVE Urine Phencyclidine Screen NEGATIVE NEGATIVE Urine Amphetamines Screen POSITIVE H NEGATIVE Urine Methamphetamines Screen POSITIVE H NEGATIVE Urine Benzodiazepines Screen NEGATIVE NEGATIVE Urine Cocaine Screen NEGATIVE NEGATIVE Urine Cannabinoids Screen NEGATIVE NEGATIVE My Orders Orders - BRITT SOODA K DO Alcohol (10/02/20 01:06) Cbc With Automated Diff (10/02/20 01:06) Comprehensive Metabolic Panel (10/02/20 01:06) Drug Screen Stat (Urine) (10/02/20 01:06) Magnesium (10/02/20 01:06) Protime With Inr (10/02/20 01:06) Partial Thromboplastin Time (10/02/20 01:06) Ua Culture If Indicated (10/02/20 01:06) Olanzapine Orally Dissolve Tab (Zyprexa (10/02/20 02:15) Medications Given in ED Current Medications Medications Dose Ordered Sig/Andre Route Start Time Stop Time Status Last Admin Dose Admin Olanzapine 5 mg ONCE ONCE PO 10/02/20 02:15 10/02/20 02:17 DC 10/02/20 02:23 5 MG Vital Signs/I&O 10/02/20 00:55 Temp 35.8 Pulse 108 Resp 18 B/P (MAP) 114/86 (95) Pulse Ox 97 Capillary Refill : Progress Note : Progress Note GIVEN WARM BLANKET, CRACKERS AND WATER TO DRINK PT RESTED QUIETLY FOR REMAINDER OF ER STAY NO COMPLAINTS GAVE A DOSE OF ZYPREXA PRIOR TO DISMISSAL. Departure Impression Primary Impression: Schizoaffective disorder Additional Impressions: IV METHAMPHETAMINE USE Homeless Disposition: 01 HOME, SELF-CARE Condition: Stable Departure-Patient Inst. Referrals: [facility] (PCP/Family) Primary Care Physician Patient Instructions: Methamphetamine, OUTPT SUBSTANCE ABUSE RESOURCE, Schizoaffective Disorder (DC) Add. Discharge Instructions: TAKE YOUR MEDICATIONS PRESCRIBED GET YOUR PRESCRIPTIONS REFILLED TODAY FOLLOW UP WITH [facility] AND WITH MENTAL HEALTH THIS WEEK FOR FURTHER CARE--CALL TODAY TO MAKE AN APPOINTMENT TURNER SOOD DO Oct 02, 2020 01:17
[2020-10-02 01:20] LABS: BASOPHILS # (AUTO) 0.1 10^3/uL (0.0-0.1); BASOPHILS % (AUTO) 1 % (0-10); EOSINOPHILS # (AUTO) 0.6 10^3/uL (0.0-0.3); EOSINOPHILS % (AUTO) 6 % (0-10); HEMATOCRIT 42 % (40-54); HEMOGLOBIN 14.3 g/dL (13.3-17.7); LYMPHOCYTES # (AUTO) 3.9 10^3/uL (1.0-4.0); LYMPHOCYTES % (AUTO) 37 % (12-44); MEAN CORPUSCULAR HEMOGLOBIN 31 pg (25-34); MEAN CORPUSCULAR HGB CONC 34 g/dL (32-36); MEAN CORPUSCULAR VOLUME 90 fL (80-99); MEAN PLATELET VOLUME 10.2 fL (9.0-12.2); MONOCYTES # (AUTO) 0.8 10^3/uL (0.0-1.0); MONOCYTES % (AUTO) 8 % (0-12); NEUTROPHILS # (AUTO) 5.1 10^3/uL (1.8-7.8); NEUTROPHILS % (AUTO) 49 % (42-75); PLATELET COUNT 361 10^3/uL (130-400); WHITE BLOOD COUNT 10.4 10^3/uL (4.3-11.0)
[2020-10-02 01:27] LABS: BILIRUBIN,URINE NEGATIVE (NEGATIVE); CLARITY,URINE CLEAR; COLOR,URINE YELLOW; GLUCOSE, URINE (UA) 3+ (NEGATIVE); KETONES,URINE TRACE (NEGATIVE); LEUKOCYTE ESTERASE ,URINE NEGATIVE (NEGATIVE); NITRITE,URINE NEGATIVE (NEGATIVE); PROTEIN,URINE NEGATIVE (NEGATIVE)
[2020-10-02 01:29] LABS: CHLORIDE 107 MMOL/L (98-107); POTASSIUM 3.9 MMOL/L (3.6-5.0); SODIUM 142 MMOL/L (135-145)
[2020-10-02 01:30] LABS: CALCIUM 8.7 MG/DL (8.5-10.1)
[2020-10-02 01:31] LABS: GLUCOSE 76 MG/DL (70-105); TOTAL PROTEIN 7.1 GM/DL (6.4-8.2)
[2020-10-02 01:32] LABS: CARBON DIOXIDE 22 MMOL/L (21-32); PROTHROMBIN TIME PATIENT 13.1 SEC (12.2-14.7)
[2020-10-02 01:33] LABS: BILIRUBIN,TOTAL 0.3 MG/DL (0.1-1.0)
[2020-10-02 01:35] LABS: ALKALINE PHOSPHATASE 91 U/L (40-136); CREATININE SERUM 0.93 MG/DL (0.60-1.30); GFR ESTIMATED > 60
[2020-10-02 01:36] LABS: BUN/CREATININE RATIO 30
[2020-10-02 01:38] LABS: ALANINE AMINOTRANSFERASE 25 U/L (0-55)
[2020-10-02 02:05] LABS: BACTERIA,URINE NEGATIVE /HPF; RBC,URINE 0-2 /HPF; SQUAMOUS EPITHELIAL CELL,UR RARE /HPF
[2020-10-02 02:06] LABS: AMPHETAMINE SCREEN, URINE POSITIVE (NEGATIVE); BARBITURATE SCREEN URINE NEGATIVE (NEGATIVE); BENZODIAZEPINES SCREEN URINE NEGATIVE (NEGATIVE); CANNABINOID SCREEN, URINE NEGATIVE (NEGATIVE); COCAINE SCREEN URINE NEGATIVE (NEGATIVE); METHADONE STAT NEGATIVE (NEGATIVE); METHAMPHETAMINE SCREEN URINE S POSITIVE (NEGATIVE); OPIATE SCREEN URINE NEGATIVE (NEGATIVE); OXYCODONE STAT NEGATIVE (NEGATIVE); PROPOXYPHENE STAT NEGATIVE (NEGATIVE); TRICYCLIC ANTIDEPRESSANTS SCRE NEGATIVE (NEGATIVE)
[2020-10-02] MEDS ORDERED: OLANZapine 5 MG ODT (ZyPREXA ZYDIS) PO ONE (02:15)
[2020-10-02 02:27] VITALS: BP 108/67
== END 2020-10-02 02:27 | disposition home or self-care (01) ==
LOC: EDUNIT# 00:46 → ER 00:49
DX: F25.9 Schizoaffective disorder, unspecified (principal); F15.90 Other stimulant use, unspecified, uncomplicated; F41.9 Anxiety disorder, unspecified; F31.9 Bipolar disorder, unspecified; E10.9 Type 1 diabetes mellitus without complications; Z59.0 Homelessness; Z82.49 Family history of ischemic heart disease and other diseases of the circulatory system; Z82.61 Family history of arthritis; Z77.22 Contact with and (suspected) exposure to environmental tobacco smoke (acute) (chronic); Z79.52 Long term (current) use of systemic steroids
CPT/HCPCS: 80053; 80306; 81000; 83735; 85025; 85610; 85730; 99283; G0480; 36415; 80320

== ENCOUNTER 2021-02-26 01:30 | Observation (INO) | payer SELFPAY ==
[~2021-02-26] VITALS: Ht 175.3 cm; Wt 71.2 kg
[2021-02-26] MEDS ORDERED: DEXTROSE 50% 50 ML (IMS) SYR ONE ×2 (01:37→05:37)
[2021-02-26] MEDS ORDERED: LACTATED RINGERS 1,000 ML IV ONE ×2 (01:45→03:00)
[2021-02-26] MEDS ORDERED: D5 NS 1000 ML IV SOLUTION 1,000 ML IV SCH (01:45)
[2021-02-26] MEDS ORDERED: DEXTROSE 50% 50 ML (IMS) SYR IV ONE ×2 (01:45→05:45)
[2021-02-26] MEDS ORDERED: CEFEPIME INJECTION 1,000 MG in WATER (STERILE) FOR INJECTION 10 ML IV ONE (01:45)
[2021-02-26] MEDS ORDERED: LORazepam INJ 2 MG/ML (ATIVAN) VIAL IVP ONE (01:45)
[2021-02-26 01:49] LABS: BASOPHILS # (AUTO) 0.1 10^3/uL (0.0-0.1); BASOPHILS % (AUTO) 1 % (0-10); EOSINOPHILS # (AUTO) 0.7 10^3/uL (0.0-0.3); EOSINOPHILS % (AUTO) 6 % (0-10); HEMATOCRIT 44 % (40-54); HEMOGLOBIN 14.8 g/dL (13.3-17.7); LYMPHOCYTES # (AUTO) 5.1 10^3/uL (1.0-4.0); LYMPHOCYTES % (AUTO) 48 % (12-44); MEAN CORPUSCULAR HEMOGLOBIN 31 pg (25-34); MEAN CORPUSCULAR HGB CONC 34 g/dL (32-36); MEAN CORPUSCULAR VOLUME 91 fL (80-99); MEAN PLATELET VOLUME 10.8 fL (9.0-12.2); MONOCYTES # (AUTO) 0.7 10^3/uL (0.0-1.0); MONOCYTES % (AUTO) 7 % (0-12); NEUTROPHILS % (AUTO) 38 % (42-75); PLATELET COUNT 320 10^3/uL (130-400); WHITE BLOOD COUNT 10.5 10^3/uL (4.3-11.0)
[2021-02-26] MEDS: VANCOMYCIN INJECTION 750 MG in NS (IVPB) 250 ML IV SCH ×2 (01:53→02:50)
[2021-02-26 02:02] LABS: ALBUMIN 4.2 GM/DL (3.2-4.5)
[2021-02-26 02:03] LABS: CHLORIDE 107 MMOL/L (98-107); POTASSIUM 3.8 MMOL/L (3.6-5.0); SODIUM 146 MMOL/L (135-145)
[2021-02-26 02:04] LABS: CALCIUM 9.3 MG/DL (8.5-10.1)
[2021-02-26 02:05] LABS: TOTAL PROTEIN 7.1 GM/DL (6.4-8.2)
[2021-02-26 02:06] LABS: CARBON DIOXIDE 26 MMOL/L (21-32)
[2021-02-26 02:07] LABS: BILIRUBIN,TOTAL 0.2 MG/DL (0.1-1.0)
[2021-02-26 02:08] LABS: ALKALINE PHOSPHATASE 75 U/L (40-136)
[2021-02-26 02:09] LABS: CREATININE SERUM 0.96 MG/DL (0.60-1.30); GFR ESTIMATED > 60
[2021-02-26 02:10] LABS: BUN/CREATININE RATIO 15
[2021-02-26 02:12] LABS: ALANINE AMINOTRANSFERASE 18 U/L (0-55)
--- NOTE | 2021-02-26 02:12 | ED Neurological Problem ---
General Chief Complaint: Glucose Problems Stated Complaint: SEIZURE Nursing Triage Note: BROUGHT IN BY [facility] FOR C/O SEIZURE, LOW BLOOD GLUCOSE. 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 Source: patient Exam Limitations: no limitations History of Present Illness Date Seen by Provider: Feb 26, 2021 Time Seen by Provider: 01:20 Initial Comments Patient to the ER by EMS from home with chief complaint that is roommate witnessed him doing some shaking seizure-like activity. He does not have a history of epilepsy however when he becomes hypoglycemic this happens. They noted low on their glucometer but he was talking and walking so they gave him some oral glucose. They note that their glucometer is below 30 mg/dL. He denied fever or chills but has had a cough for the past couple days. He has not been checked out for this. He does not have a insulin pump. He follows with [facility] for primary care. He does endorse dysuria for the past couple days as well. Allergies and Home Medications Allergies Coded Allergies: No Known Drug Allergies (Unverified , 12/02/13) Home Medications Hydroxyzine HCl 50 Mg Tablet, 50 MG PO Q6H PRN for NAUSEA/VOMITING Prescribed by: MOE SOLITARIO on 02/23/20 2221 Insulin Aspart 300 Units/3 Ml Solution, 16 UNITS SQ AC, (Reported) Insulin Degludec 100 Unit/1 Ml Insuln.pen, 40 UNIT SQ HS, (Reported) Olanzapine 5 Mg Tablet, 5 MG PO DAILY Prescribed by: BRADLY CORDOBA on 07/18/20 1719 Ondansetron 4 Mg Tab.rapdis, 4 MG PO Q6H PRN for NAUSEA/VOMITING Prescribed by: CHRISTINE ELLIOTT on 05/06/20 1006 Ondansetron 4 Mg Tab.rapdis, 4 MG PO Q4H PRN for NAUSEA-1ST LINE Prescribed by: BRADLY CORDOBA on 07/18/20 171 Pantoprazole Sodium 20 Mg Tablet.dr, 20 MG PO DAILY Prescribed by: BRADLY CORDOBA on 07/18/20 171 Pravastatin Sodium 20 Mg Tablet, 20 MG PO DAILY, (Reported) Prednisone 20 Mg Tab, 40 MG PO DAILY Prescribed by: MOE SOLITARIO on 07/07/20 1841 Risperidone 1 Mg Tablet, 1 MG PO BID Prescribed by: LATRICIA ARTEAGA on 01/17/20 1006 Patient Home Medication List Home Medication List Reviewed: Yes Review of Systems Review of Systems Constitutional: No chills, No fever; malaise Eyes: Denies Blindness, Denies Blurred Vision Ears, Nose, Mouth, Throat: denies ear pain, denies nose pain Respiratory: cough; No phlegm, No short of breath, No wheezing Cardiovascular: No chest pain, No edema Gastrointestinal: No abdominal pain, No nausea, No vomiting Genitourinary: No discharge; dysuria; No frequency Musculoskeletal: No back pain, No joint pain All Other Systems Reviewed Negative Unless Noted: Yes Past Cnmahqp-Mqocwc-Gcjvwd Hx Patient Social History Tobacco Use?: Yes Tobacco type used: Cigarettes Smoking Status: Current Everyday Smoker Substance use?: Yes Substance type: Methamphetamine, Marijuana Alcohol Use?: No Pt feels they are or have been: No Immunizations Up To Date Tetanus Booster (TDap): Less than 5yrs Seasonal Allergies Seasonal Allergies: No Past Medical History Surgeries: Yes (I&D OF ABSCESS TO CHIN/NECK AREA) Respiratory: No Currently Using CPAP: No Currently Using BIPAP: No Cardiac: No Neurological: No Genitourinary: No Gastrointestinal: Yes (HEPATITIS--UNKNOWN TYPE) Liver Disease/Jaundice, Hepatitis Musculoskeletal: No Endocrine: Yes (TYPE 1 DIABETES) Diabetes, Insulin dep HEENT: No Cancer: No Psychosocial: Yes (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) ADD/ADHD, Anxiety, Suicide Attempts, Bipolar, Schizophrenia, Depression Integumentary: Yes (HX OF MRSA) Blood Disorders: No Family Medical History Alcoholism G8 BROTHER Arthritis Asthma 19 MOTHER (copd & hypotention) Cardiovascular disease 19 FATHER (cva) Completed stroke 19 FATHER Hypercholesterolemia 19 FATHER G8 SISTER Hypertension 19 FATHER Thyroid disease G8 SISTER (hyperthyroid) SOCIAL HISTORY: -HX OF ALCOHOL ABUSE, NOW ONLY "OCCASIONALLY" USES -DRUGS--EXTENSIVE IV METH USE, HX OF IV COCAINE USE, THC USE -SMOKES 1 PPD MULTIPLE PSYCH ADMITS Physical Exam Vital Signs Vital Signs - First Documented 02/26/21 01:30 Temp 36.7 Pulse 81 Resp 22 B/P (MAP) 185/101 (129) Pulse Ox 98 O2 Delivery Room Air Capillary Refill : Less Than 3 Seconds Height, Weight, BMI Height: 5'8.00" Weight: 162lbs. 1.6oz. 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, no motor/sensory deficits, alert, normal mood/affect, oriented x 3 Crainal Nerves: normal hearing, normal speech, PERRL Motor/Sensory: no motor deficit, no sensory deficit, no pronator drift Skin: normal color, warm/dry Focused Exam Lactate Level 02/26/21 01:50: Lactic Acid Level 4.79*H Lactic Acid Level Laboratory Tests Test 02/26/21 01:50 Lactic Acid Level 4.79 MMOL/L (0.50-2.00) *H Progress/Results/Core Measures Results/Orders Lab Results Laboratory Tests Test 02/26/21 01:36 02/26/21 01:38 02/26/21 01:50 02/26/21 02:07 Range/Units Glucometer 16 *L 70-110 MG/DL White Blood Count 10.5 4.3-11.0 10^3/uL Red Blood Count 4.85 4.30-5.52 10^6/uL Hemoglobin 14.8 13.3-17.7 g/dL Hematocrit 44 40-54 % Mean Corpuscular Volume 91 80-99 fL Mean Corpuscular Hemoglobin 31 25-34 pg Mean Corpuscular Hemoglobin Concent 34 32-36 g/dL Red Cell Distribution Width 12.6 10.0-14.5 % Platelet Count 320 130-400 10^3/uL Mean Platelet Volume 10.8 9.0-12.2 fL Immature Granulocyte % (Auto) 0 % Neutrophils (%) (Auto) 38 L 42-75 % Lymphocytes (%) (Auto) 48 H 12-44 % Monocytes (%) (Auto) 7 0-12 % Eosinophils (%) (Auto) 6 0-10 % Basophils (%) (Auto) 1 0-10 % Neutrophils # (Auto) 4.0 1.8-7.8 10^3/uL Lymphocytes # (Auto) 5.1 H 1.0-4.0 10^3/uL Monocytes # (Auto) 0.7 0.0-1.0 10^3/uL Eosinophils # (Auto) 0.7 H 0.0-0.3 10^3/uL Basophils # (Auto) 0.1 0.0-0.1 10^3/uL Immature Granulocyte # (Auto) 0.0 0.0-0.1 10^3/uL Sodium Level 146 H 135-145 MMOL/L Potassium Level 3.8 3.6-5.0 MMOL/L Chloride Level 107 98-107 MMOL/L Carbon Dioxide Level 26 21-32 MMOL/L Anion Gap 13 5-14 MMOL/L Blood Urea Nitrogen 14 7-18 MG/DL Creatinine 0.96 0.60-1.30 MG/DL Estimat Glomerular Filtration Rate > 60 BUN/Creatinine Ratio 15 Glucose Level 20 *L 70-105 MG/DL Calcium Level 9.3 8.5-10.1 MG/DL Corrected Calcium 9.1 8.5-10.1 MG/DL Total Bilirubin 0.2 0.1-1.0 MG/DL Aspartate Amino Transf (AST/SGOT) 19 5-34 U/L Alanine Aminotransferase (ALT/SGPT) 18 0-55 U/L Alkaline Phosphatase 75 40-136 U/L C-Reactive Protein High Sensitivity 0.58 H 0.00-0.50 MG/DL Total Protein 7.1 6.4-8.2 GM/DL Albumin 4.2 3.2-4.5 GM/DL Procalcitonin 0.06 <0.10 NG/ML Serum Alcohol < 10 <10 MG/DL Lactic Acid Level 4.79 *H 0.50-2.00 MMOL/L Influenza Type A (RT-PCR) Not Detected Not Detecte Influenza Type B (RT-PCR) Not Detected Not Detecte SARS-CoV-2 RNA (RT-PCR) Not Detected Not Detecte My Orders Orders - CHRISTINE ELLIOTT D50w (Emergency) Syringe (Dextrose 50% 5 (02/26/21 01:37) Lorazepam Injection (Ativan Injection) (02/26/21 01:45) D50w (Emergency) Syringe (Dextrose 50% 5 (02/26/21 01:45) D5 Ns 1000 Ml Iv Solution (Dextrose 5%/0 (02/26/21 01:45) Cbc With Automated Diff (02/26/21 01:41) Comprehensive Metabolic Panel (02/26/21 01:41) Blood Culture (02/26/21 01:41) Sputum Culture (02/26/21 01:41) Urinalysis (02/26/21 01:41) Urine Culture (02/26/21 01:41) Chest 1 View, Ap/Pa Only (02/26/21 01:41) Ed Iv/Invasive Line Start (02/26/21 01:41) Ed Iv/Invasive Line Start (02/26/21 01:41) Vital Signs Adult Sepsis Patie Q15M (02/26/21 01:41) O2 (02/26/21 01:41) Remove Rings In Anticipation O (02/26/21 01:41) Lactic Acid Analyzer (02/26/21 01:41) Lactated Ringers (Lr 1000 Ml Iv Solution (02/26/21 01:45) Cefepime Injection (Maxipime Injection) (02/26/21 01:45) Vancomycin Injection (Vancomycin Injecti (02/26/21 01:45) Accucheck Stat ONCE (02/26/21 01:41) Accucheck Stat ONCE (02/26/21 01:44) Alcohol (02/26/21 01:44) Drug Screen Stat (Urine) (02/26/21 01:44) Covid 19 Inhouse Test (02/26/21 01:57) Influenza A And B By Pcr (02/26/21 01:57) Hs C Reactive Protein (02/26/21 01:57) Procalcitonin (Pct) (02/26/21 01:57) Lactated Ringers (Lr 1000 Ml Iv Solution (02/26/21 03:00) Medications Given in ED Current Medications Medications Dose Ordered Sig/Andre Route Start Time Stop Time Status Last Admin Dose Admin Cefepime HCl 1000 mg/Sterile Water 10 ml @ 200 mls/hr ONCE ONCE IV 02/26/21 01:45 02/26/21 01:47 DC 02/26/21 01:53 200 MLS/HR Dextrose 50 ml ONCE ONCE IV 02/26/21 01:45 02/26/21 01:46 DC 02/26/21 01:45 50 ML Lactated Ringer's 1,000 ml @ 0 mls/hr Q0M ONCE IV 02/26/21 01:45 02/26/21 01:46 DC 02/26/21 01:53 0 MLS/HR Lactated Ringer's 1,000 ml @ 0 mls/hr Q0M ONCE IV 02/26/21 03:00 02/26/21 03:02 DC 02/26/21 02:50 0 MLS/HR Lorazepam 2 mg ONCE ONCE IVP 02/26/21 01:45 02/26/21 01:46 DC 02/26/21 01:46 2 MG Vital Signs/I&O 02/26/21 01:30 Temp 36.7 Pulse 81 Resp 22 B/P (MAP) 185/101 (129) Pulse Ox 98 O2 Delivery Room Air Blood Pressure Mean: 129 FSBG Bedside Testing Finger Stick Blood Glucose: 16 Blood Glucose Action Taken: Doctor notified Progress Progress Note : Time: 02:12 Progress Note Patient's blood sugar was 16 on arrival and he was having some convulsions. 2 mg Ativan IM were given so we could initiate an IV and give him an amp of D50. We will then put him on 100 mL an hour D5 normal saline. Give him a liter of fluids and do a septic work-up as needed to figure out what is causing his symptoms. He did endorse cough so we will check COVID-19 and influenza swab. Chest x-ray. Blood cultures. Cefepime and vancomycin on the off chance that this is infectious mediated. Repeat blood sugar is 148. Diagnostic Imaging Diagonstic Imaging: Xray Plain Films/CT/US/NM/MRI: chest Comments No acute cardiopulmonary process on 1 view chest x-ray. NAME: DULCE NAVAS [facility] REC#: [id number] PT STATUS: REG ER : 1980 PHYSICIAN: CHRISTINE ELLIOTT MD ADMIT DATE: 02/26/21/ER Signed Date of Exam:02/26/21 CHEST 1 VIEW, AP/PA ONLY EXAMINATION: Chest 1 view HISTORY: Sepsis. COMPARISON: 09/16/2020. FINDINGS: The lung volumes are normal. No focal consolidation is seen. No large pleural effusion or pneumothorax is seen. The cardiomediastinal silhouette is normal in size and contour. No acute osseous abnormality is seen. IMPRESSION: 1. No acute pleuroparenchymal process. Dictated by: Dictated on workstation # [id number] Dict: 02/26/21215 Trans: 02/26/21215 PC1 [id number] Interpreted by: BERHANE AGARWAL DO Electronically signed by: BERHANE AGARWAL DO 02/26/21215 Reviewed: Reviewed by Me Departure Communication (Admissions) Time/Spoke to Admitting Phy: 03:15 Dr. Bedoya agrees to admit the patient for hypoglycemia protocol okay to eat. Impression Primary Impression: Hypoglycemia associated with diabetes Additional Impression: Type 1 diabetes mellitus Qualified Codes: E10.649 - Type 1 diabetes mellitus with hypoglycemia without coma Disposition: ADMITTED INPATIENT Condition: Stable Admissions Decision to Admit Reason: Admit from ER (General) Decision to Admit/Date: Feb 26, 2021 Time/Decision to Admit Time: 01:57 Departure-Patient Inst. Referrals: [facility] (PCP/Family) Primary Care Physician CHRISTINE ELLIOTT Feb 26, 2021 02:12
--- NOTE | 2021-02-26 02:17 | Diagnostic Imaging Report ---
EXAMINATION: Chest 1 view HISTORY: Sepsis. COMPARISON: 09/16/2020. FINDINGS: The lung volumes are normal. No focal consolidation is seen. No large pleural effusion or pneumothorax is seen. The cardiomediastinal silhouette is normal in size and contour. No acute osseous abnormality is seen. IMPRESSION: 1. No acute pleuroparenchymal process. Dictated by: Dictated on workstation # [id number]
[2021-02-26 02:27] LABS: GLUCOSE 20 MG/DL (70-105)
[2021-02-26 03:45] VITALS: BP 124/69
[2021-02-26] MEDS ORDERED: ACETAMINOPHEN 325 MG TABLET PO PRN (04:45)
[2021-02-26] MEDS ORDERED: D5 NS W/KCL 20 MEQ/L 1,000 ML IV SCH (04:45)
[2021-02-26] MEDS ORDERED: ONDANSETRON 4 MG/2 ML (SDV) Z0FRAN IV PRN (04:45)
[2021-02-26] MEDS ORDERED: LORazepam INJ 2 MG/ML (ATIVAN) VIAL IV PRN (05:00)
[2021-02-26] MEDS ORDERED: ANTACID SUSP 30 ML UDC (MYLANTA) PO PRN (05:00)
[2021-02-26 05:44] LABS: BASOPHILS # (AUTO) 0.1 10^3/uL (0.0-0.1); BASOPHILS % (AUTO) 1 % (0-10); EOSINOPHILS # (AUTO) 0.3 10^3/uL (0.0-0.3); EOSINOPHILS % (AUTO) 4 % (0-10); HEMATOCRIT 36 % (40-54); HEMOGLOBIN 12.3 g/dL (13.3-17.7); LYMPHOCYTES # (AUTO) 2.5 10^3/uL (1.0-4.0); LYMPHOCYTES % (AUTO) 29 % (12-44); MEAN CORPUSCULAR HEMOGLOBIN 31 pg (25-34); MEAN CORPUSCULAR HGB CONC 34 g/dL (32-36); MEAN CORPUSCULAR VOLUME 91 fL (80-99); MEAN PLATELET VOLUME 10.8 fL (9.0-12.2); MONOCYTES # (AUTO) 0.3 10^3/uL (0.0-1.0); MONOCYTES % (AUTO) 4 % (0-12); NEUTROPHILS # (AUTO) 5.3 10^3/uL (1.8-7.8); NEUTROPHILS % (AUTO) 62 % (42-75); PLATELET COUNT 236 10^3/uL (130-400); WHITE BLOOD COUNT 8.5 10^3/uL (4.3-11.0)
[2021-02-26 06:00] LABS: CHLORIDE 109 MMOL/L (98-107); POTASSIUM 3.4 MMOL/L (3.6-5.0); SODIUM 141 MMOL/L (135-145)
[2021-02-26 06:01] LABS: CALCIUM 7.7 MG/DL (8.5-10.1)
[2021-02-26 06:02] LABS: GLUCOSE 74 MG/DL (70-105)
[2021-02-26 06:03] LABS: CARBON DIOXIDE 26 MMOL/L (21-32)
[2021-02-26 06:06] LABS: CREATININE SERUM 0.77 MG/DL (0.60-1.30); GFR ESTIMATED > 60
[2021-02-26 06:07] LABS: BUN/CREATININE RATIO 16
[2021-02-26 08:26] LABS: BILIRUBIN,URINE NEGATIVE (NEGATIVE); CLARITY,URINE CLEAR; COLOR,URINE YELLOW; GLUCOSE, URINE (UA) 1+ (NEGATIVE); KETONES,URINE NEGATIVE (NEGATIVE); LEUKOCYTE ESTERASE ,URINE NEGATIVE (NEGATIVE); NITRITE,URINE NEGATIVE (NEGATIVE); PROTEIN,URINE NEGATIVE (NEGATIVE)
[2021-02-26 08:38] LABS: AMORPHOUS SEDIMENT,UR RARE AMOR PHOSPHATE /LPF; BACTERIA,URINE NEGATIVE /HPF; SQUAMOUS EPITHELIAL CELL,UR RARE /HPF
[2021-02-26 08:42] LABS: AMPHETAMINE SCREEN, URINE POSITIVE (NEGATIVE); BARBITURATE SCREEN URINE NEGATIVE (NEGATIVE); BENZODIAZEPINES SCREEN URINE POSITIVE (NEGATIVE); CANNABINOID SCREEN, URINE NEGATIVE (NEGATIVE); COCAINE SCREEN URINE NEGATIVE (NEGATIVE); METHADONE STAT NEGATIVE (NEGATIVE); METHAMPHETAMINE SCREEN URINE S POSITIVE (NEGATIVE); OPIATE SCREEN URINE NEGATIVE (NEGATIVE); OXYCODONE STAT NEGATIVE (NEGATIVE); PROPOXYPHENE STAT NEGATIVE (NEGATIVE); TRICYCLIC ANTIDEPRESSANTS SCRE NEGATIVE (NEGATIVE)
--- NOTE | 2021-02-26 08:45 | Short Stay Summary ---
HPI History of Present Illness: 40 yo M with type I DM that presented after convulsions due to hypoglycemia. When EMS arrived he was in the 20s . States that he has not had this problem in a long time. States that he thinks that he may have taken 2 injections of his long acting insulin but he can't remember. States that his last admission for his DM was 2 years ago when he was in DKA after a diarrheal illness. Patient is feeling much better this AM. Eating breakfast at this time. States that he would like to go home. Denies any pain. Source: patient Exam Limitations: no limitations Date seen by provider: Feb 26, 2021 Time Seen by Provider: 08:00 Attending Physician Alba Bedoya MD 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 Patients Allergies have been reviewed. Allergies Coded Allergies: No Known Drug Allergies (Unverified , 12/02/13) [id number] Hx Patient Social History Smoking Status: Current Everyday Smoker 2nd Hand Smoke Exposure: Yes Recent Hopitalizations: No Alcohol Use?: Yes Substance type: Amphetamines, Methamphetamine, Nicotine, Marijuana Tobacco type used: Cigarettes Have you traveled recently?: No Immunizations Up To Date Tetanus Booster (TDap): Less than 5yrs Past Medical History PMHx: DMI Schizoaffective Depression Family Medical History Other Significan Family Hx: SOCIAL HISTORY: -HX OF ALCOHOL ABUSE, NOW ONLY "OCCASIONALLY" USES -DRUGS--EXTENSIVE IV METH USE, HX OF IV COCAINE USE, THC USE -SMOKES 1 PPD MULTIPLE PSYCH ADMITS Family History: Alcoholism G8 BROTHER Arthritis Asthma 19 MOTHER (copd & hypotention) Cardiovascular disease 19 FATHER (cva) Completed stroke 19 FATHER Hypercholesterolemia 19 FATHER G8 SISTER Hypertension 19 FATHER Thyroid disease G8 SISTER (hyperthyroid) Review of Systems (CHC) Constitutional: no symptoms reported; No chills, No fever, No malaise, No weakness EENTM: no symptoms reported; No mouth pain, No nose congestion, No nose pain Respiratory: no symptoms reported; No cough, No dyspnea on exertion, No short of breath Cardiovascular: no symptoms reported; No chest pain, No edema, No palpitations Gastrointestinal: no symptoms reported; No abdominal pain, No constipation, No diarrhea, No loss of appetite, No nausea, No vomiting Genitourinary: No dysuria; frequency; No hematuria Musculoskeletal: no symptoms reported; No back pain, No joint pain, No muscle pain Skin: no symptoms reported; No lesions, No rash Psychiatric/Neurological: No Symptoms Reported; Denies Headache, Denies Numbness, Denies Weakness Reviewed Test Results Reviewed Test Results Lab Laboratory Tests Test 02/26/21 01:36 02/26/21 01:38 02/26/21 01:50 02/26/21 02:05 Range/Units Glucometer 16 *L 148 H 70-110 MG/DL White Blood Count 10.5 4.3-11.0 10^3/uL Red Blood Count 4.85 4.30-5.52 10^6/uL Hemoglobin 14.8 13.3-17.7 g/dL Hematocrit 44 40-54 % Mean Corpuscular Volume 91 80-99 fL Mean Corpuscular Hemoglobin 31 25-34 pg Mean Corpuscular Hemoglobin Concent 34 32-36 g/dL Red Cell Distribution Width 12.6 10.0-14.5 % Platelet Count 320 130-400 10^3/uL Mean Platelet Volume 10.8 9.0-12.2 fL Immature Granulocyte % (Auto) 0 % Neutrophils (%) (Auto) 38 L 42-75 % Lymphocytes (%) (Auto) 48 H 12-44 % Monocytes (%) (Auto) 7 0-12 % Eosinophils (%) (Auto) 6 0-10 % Basophils (%) (Auto) 1 0-10 % Neutrophils # (Auto) 4.0 1.8-7.8 10^3/uL Lymphocytes # (Auto) 5.1 H 1.0-4.0 10^3/uL Monocytes # (Auto) 0.7 0.0-1.0 10^3/uL Eosinophils # (Auto) 0.7 H 0.0-0.3 10^3/uL Basophils # (Auto) 0.1 0.0-0.1 10^3/uL Immature Granulocyte # (Auto) 0.0 0.0-0.1 10^3/uL Sodium Level 146 H 135-145 MMOL/L Potassium Level 3.8 3.6-5.0 MMOL/L Chloride Level 107 98-107 MMOL/L Carbon Dioxide Level 26 21-32 MMOL/L Anion Gap 13 5-14 MMOL/L Blood Urea Nitrogen 14 7-18 MG/DL Creatinine 0.96 0.60-1.30 MG/DL Estimat Glomerular Filtration Rate > 60 BUN/Creatinine Ratio 15 Glucose Level 20 *L 70-105 MG/DL Calcium Level 9.3 8.5-10.1 MG/DL Corrected Calcium 9.1 8.5-10.1 MG/DL Total Bilirubin 0.2 0.1-1.0 MG/DL Aspartate Amino Transf (AST/SGOT) 19 5-34 U/L Alanine Aminotransferase (ALT/SGPT) 18 0-55 U/L Alkaline Phosphatase 75 40-136 U/L C-Reactive Protein High Sensitivity 0.58 H 0.00-0.50 MG/DL Total Protein 7.1 6.4-8.2 GM/DL Albumin 4.2 3.2-4.5 GM/DL Procalcitonin 0.06 <0.10 NG/ML Serum Alcohol < 10 <10 MG/DL Lactic Acid Level 4.79 *H 0.50-2.00 MMOL/L Test 02/26/21 02:07 02/26/21 03:21 02/26/21 03:48 02/26/21 05:33 Range/Units Influenza Type A (RT-PCR) Not Detected Not Detecte Influenza Type B (RT-PCR) Not Detected Not Detecte SARS-CoV-2 RNA (RT-PCR) Not Detected Not Detecte Glucometer 89 95 66 L 70-110 MG/DL Test 02/26/21 05:35 02/26/21 06:21 02/26/21 07:55 02/26/21 08:20 Range/Units White Blood Count 8.5 4.3-11.0 10^3/uL Red Blood Count 3.98 L 4.30-5.52 10^6/uL Hemoglobin 12.3 L 13.3-17.7 g/dL Hematocrit 36 L 40-54 % Mean Corpuscular Volume 91 80-99 fL Mean Corpuscular Hemoglobin 31 25-34 pg Mean Corpuscular Hemoglobin Concent 34 32-36 g/dL Red Cell Distribution Width 12.5 10.0-14.5 % Platelet Count 236 130-400 10^3/uL Mean Platelet Volume 10.8 9.0-12.2 fL Immature Granulocyte % (Auto) 0 % Neutrophils (%) (Auto) 62 42-75 % Lymphocytes (%) (Auto) 29 12-44 % Monocytes (%) (Auto) 4 0-12 % Eosinophils (%) (Auto) 4 0-10 % Basophils (%) (Auto) 1 0-10 % Neutrophils # (Auto) 5.3 1.8-7.8 10^3/uL Lymphocytes # (Auto) 2.5 1.0-4.0 10^3/uL Monocytes # (Auto) 0.3 0.0-1.0 10^3/uL Eosinophils # (Auto) 0.3 0.0-0.3 10^3/uL Basophils # (Auto) 0.1 0.0-0.1 10^3/uL Immature Granulocyte # (Auto) 0.0 0.0-0.1 10^3/uL Sodium Level 141 135-145 MMOL/L Potassium Level 3.4 L 3.6-5.0 MMOL/L Chloride Level 109 H 98-107 MMOL/L Carbon Dioxide Level 26 21-32 MMOL/L Anion Gap 6 5-14 MMOL/L Blood Urea Nitrogen 12 7-18 MG/DL Creatinine 0.77 0.60-1.30 MG/DL Estimat Glomerular Filtration Rate > 60 BUN/Creatinine Ratio 16 Glucose Level 74 70-105 MG/DL Lactic Acid Level 0.96 0.50-2.00 MMOL/L Calcium Level 7.7 L 8.5-10.1 MG/DL Glucometer 140 H 134 H 70-110 MG/DL Urine Color YELLOW Urine Clarity CLEAR Urine pH 7.0 5-9 Urine Specific [place] 1.025 H 1.016-1.022 Urine Protein NEGATIVE NEGATIVE Urine Glucose (UA) 1+ H NEGATIVE Urine Ketones NEGATIVE NEGATIVE Urine Nitrite NEGATIVE NEGATIVE Urine Bilirubin NEGATIVE NEGATIVE Urine Urobilinogen 0.2 < = 1.0 MG/DL Urine Leukocyte Esterase NEGATIVE NEGATIVE Urine RBC (Auto) NEGATIVE NEGATIVE Urine RBC NONE /HPF Urine WBC NONE /HPF Urine Squamous Epithelial Cells RARE /HPF Urine Crystals PRESENT H /LPF Urine Amorphous Sediment RARE ZAHRA PHOSPHATE H /LPF Urine Bacteria NEGATIVE /HPF Urine Casts NONE /LPF Urine Mucus SMALL H /LPF Urine Culture Indicated NO Urine Opiates Screen NEGATIVE NEGATIVE Urine Oxycodone Screen NEGATIVE NEGATIVE Urine Methadone Screen NEGATIVE NEGATIVE Urine Propoxyphene Screen NEGATIVE NEGATIVE Urine Barbiturates Screen NEGATIVE NEGATIVE Ur Tricyclic Antidepressants Screen NEGATIVE NEGATIVE Urine Phencyclidine Screen NEGATIVE NEGATIVE Urine Amphetamines Screen POSITIVE H NEGATIVE Urine Methamphetamines Screen POSITIVE H NEGATIVE Urine Benzodiazepines Screen POSITIVE H NEGATIVE Urine Cocaine Screen NEGATIVE NEGATIVE Urine Cannabinoids Screen NEGATIVE NEGATIVE Physical Exam-(CHC) Physical Exam Vital Signs VS - Last 72 Hours, by Label 02/26/21 02/26/21 02/26/21 02/26/21 01:30 03:45 04:20 04:20 Temp 36.7 36.7 36.0 Pulse 81 61 66 Resp 22 18 16 B/P (MAP) 185/101 (129) 124/69 107/51 (69) Pulse Ox 98 93 96 96 O2 Delivery Room Air Room Air Room Air Room Air 02/26/21 02/26/21 02/26/21 02/26/21 04:32 04:33 07:00 08:00 Temp 36.2 Pulse 64 71 86 Resp 18 B/P (MAP) 100/61 (74) Pulse Ox 96 99 O2 Delivery Room Air Room Air Capillary Refill : Less Than 3 Seconds General Appearance: WD/WN, no apparent distress HEENT: PERRL/EOMI Neck: non-tender, full range of motion, supple Respiratory: chest non-tender, lungs clear, normal breath sounds, no respiratory distress, no accessory muscle use Cardiovascular: normal peripheral pulses, regular rate, rhythm, no edema, no murmur Gastrointestinal: normal bowel sounds, non tender, soft, no organomegaly Back: no CVA tenderness, no vertebral tenderness Extremities: normal range of motion, non-tender, normal inspection, no pedal edema, no calf tenderness, normal capillary refill 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, no motor/sensory deficits, alert, normal mood/affect, oriented x 3 Skin: normal color, warm/dry Lymphatic: no adenopathy Short Stay Diagnosis Discharge Diagnosis-Short Stay Admission Diagnosis Hypoglycemia in Type I DM Type I DM Meth Abuse Final Discharge Diagnosis See Above Conclusion Plan See problem list Assessment/Plan Assessment/Plan Admission Status: Observation (1) Hypoglycemia associated with diabetes Status: Acute Assessment & Plan: - Decreased long acting insulin, recommend patient get CGM, Make sure you eat when you take your insulin (2) Type 1 diabetes mellitus Status: Acute Qualifiers: Qualified Codes: E10.649 - Type 1 diabetes mellitus with hypoglycemia without coma (3) Methamphetamine abuse Status: Chronic Assessment & Plan: - Discussed the importance of cessation ALBA BEDOYA MD Feb 26, 2021 08:45
[2021-02-26] MEDS ORDERED: INSU100I32 SQ (08:47)
[2021-02-26] MEDS ORDERED: INSU100I14 SQ (08:47)
--- NOTE | 2021-02-26 08:48 | Discharge Summary ---
Discharge [facility] Reconcile Patient Problems Problems Reviewed?: Yes Discharge Medications New, Converted or Re-Newed RX: Other (No New medications) Changed Medications: Insulin Aspart (Novolog Flexpen) 300 Units/3 Ml Solution 7 UNITS SQ AC for 30 Days, EA (Changed from: 16 UNITS) Insulin Degludec (Tresiba Flextouch U-100) 100 Unit/1 Ml Insuln.pen 20 UNIT SQ BID for 30 Days, EA (Changed from: 40 UNIT; HS) Continued Medications: Hydroxyzine HCl (Hydroxyzine HCl) 50 Mg Tablet 50 MG PO Q6H PRN for NAUSEA/VOMITING, #14 TAB Ondansetron (Ondansetron Odt) 4 Mg Tab.rapdis 4 MG PO Q4H PRN for NAUSEA-1ST LINE, #30 TAB 0 Refills Pantoprazole Sodium (Pantoprazole Sodium) 20 Mg Tablet.dr 20 MG PO DAILY for 14 Days, #14 TAB 0 Refills Pravastatin Sodium (Pravastatin Sodium) 20 Mg Tablet 20 MG PO DAILY Risperidone (Risperidone) 1 Mg Tablet 1 MG PO BID, #60 TAB 0 Refills Discontinued Medications: Olanzapine (Olanzapine) 5 Mg Tablet 5 MG PO DAILY for 7 Days, #7 TAB 0 Refills Ondansetron (Ondansetron Odt) 4 Mg Tab.rapdis 4 MG PO Q6H PRN for NAUSEA/VOMITING, #10 TAB 0 Refills Prednisone (Prednisone) 20 Mg Tab 40 MG PO DAILY, #4 TAB 0 Refills Patient Instructions Goal/Follow Up Appt: F.u with PCP in 1 week Patient Instructions: - Keep a log of when you take your insulin so that you do not take extra doses Activity & Diet Discharge Diet: ADA Diet Activity as Tolerated: Yes BERTHA JIMENEZ MD Feb 26, 2021 08:48
== END 2021-02-26 10:05 | disposition home or self-care (01) ==
LOC: EDUNIT# 01:30 → ER 01:32 → UNDOADMIN 02:25 → CSD 02:25 → UNDODISIN 10:05
PROVIDERS: ADMIT Family Medicine; ATTEND Family Medicine
DX: E10.649 Type 1 diabetes mellitus with hypoglycemia without coma (principal); F15.10 Other stimulant abuse, uncomplicated; F41.9 Anxiety disorder, unspecified; F17.210 Nicotine dependence, cigarettes, uncomplicated; F32.9 Major depressive disorder, single episode, unspecified; F20.9 Schizophrenia, unspecified; Z91.5 Personal history of self-harm; Z79.899 Other long term (current) drug therapy
CPT/HCPCS: 71045; 80048; 80053; 80306; 81000; 82947; 83605; 84145; 85025; 86141; 87040; 87081; 87088; 87636; 99284; G0480; 36415; 80320

== ENCOUNTER 2021-03-22 18:51 | Emergency (ER) | payer SELFPAY ==
[~2021-03-22 18:51] MED LIST changes: -OLAN5TAB25 PO; +OLN5T PO
[2021-03-29] MEDS ORDERED: LINE600T12 PO (11:36)
[2021-03-29] MEDS ORDERED: ACHD5005 PO (11:36)
== END 2021-03-22 19:02 | disposition left against medical advice (07) ==
LOC: EDUNIT# 18:51 → ER 18:52
DX: R50.9 Fever, unspecified (principal); R06.02 Shortness of breath

== ENCOUNTER 2021-03-26 13:11 | Inpatient (IN) | payer OTHER ==
[~2021-03-26] VITALS: Ht 175 cm; Wt 63.5 kg
[2021-03-26] MEDS ORDERED: PIPERACILLIN SODIUM/TAZOBACTAM 4.5 GM in NS (IVPB) 100 ML IV ONE (13:30)
[2021-03-26] MEDS ORDERED: VANCOMYCIN INJECTION 1,000 MG in NS (IVPB) 250 ML IV ONE (13:30)
--- NOTE | 2021-03-26 13:37 | ED Upper Extremity ---
General Chief Complaint: Upper Extremity Stated Complaint: R ARM INFECTION/SWELLING Nursing Triage Note: PT PRESENTS TO ED VIA POV FROM HOME WITH COMPLAINTS OF R ARM SWELLING AND REDNESS STARTING APROX 3-4 DAYS AGO. PT REPORTS HX OF IV DRUG USE. Source: patient Exam Limitations: no limitations History of Present Illness Date Seen by Provider: Mar 26, 2021 Time Seen by Provider: 13:15 Initial Comments Patient is a 40-year-old male who presents to the emergency room with a chief complaint of an infection in his right forearm spreading up into his upper arm. Patient states that he has had symptoms for about 3 days. He has been on Bactrim. He states he went to [facility] yesterday and got "a shot" and he cannot recall what antibiotic he got. He states he has a history of MRSA infections in the past. He is concerned that he has MRSA now. Patient states that he has had some fevers and chills. No productive cough, sore throat runny nose congestion headache, no diarrhea nausea or vomiting. No urinary complaints. He is an insulin-dependent diabetic. He also has a history of IV drug abuse and last used 2 days ago. Last time he used he injected into his right AC space in the lateral aspect. He states he has a sore on the dorsal part of his right forearm that he has been scratching at but he believes is the source of the infection. He states he has been taking his Bactrim as prescribed. He states over the last 24 hours the redness has spread and he has increasing discomfort. He is homeless. He is visiting here for 2 weeks, planning to go to drug rehab. He does not have a local physician but does go to on license of [facility]. All other review of systems reviewed and negative except as stated above. Onset: last week Severity: moderate Pain/Injury Location: right arm, right elbow, right forearm Method of Injury: unknown Modifying Factors: Worse With Movement Allergies and Home Medications Allergies Coded Allergies: No Known Drug Allergies (Unverified , 12/02/13) Home Medications Hydrocodone Bit/Acetaminophen 1 Tab Tab, 1 EA PO Q4H PRN for PAIN-MODERATE (5-7) Prescribed by: ANDRES AVENDANO on 03/29/21 1136 Insulin Aspart 300 Units/3 Ml Solution, 7 UNITS SQ AC, (Reported) Last Action: Reviewed Insulin Glargine,Hum.rec.anlog 100 Unit/1 Ml Insuln.pen, 25 UNIT SQ DAILY, (Reported) Last Action: Reviewed Insulin Glargine,Hum.rec.anlog 100 Unit/1 Ml Insuln.pen, 20 UNIT SQ HS, (Reported) Last Action: Reviewed Linezolid 600 Mg Tablet, 600 MG PO BID Prescribed by: ANDRES AVENDANO on 03/29/21 1136 Patient Home Medication List Home Medication List Reviewed: Yes Review of Systems Constitutional: see HPI, chills, fever EENTM: no symptoms reported Respiratory: no symptoms reported Cardiovascular: no symptoms reported Gastrointestinal: nausea (Minimal nausea reported) Genitourinary: no symptoms reported Musculoskeletal: muscle pain (Right forearm and upper arm discomfort) Skin: rash, other (Lesion to dorsum of the right forearm) Psychiatric/Neurological: Anxiety All Other Systems Reviewed Negative Unless Noted: Yes Past Mmqilqc-Zaeczk-Iahjnx Hx Patient Social History Tobacco Use?: Yes Smoking Status: Current Everyday Smoker Substance use?: Yes Substance type: Methamphetamine Substance frequency: Daily Alcohol Use?: No Pt feels they are or have been: No Immunizations Up To Date Tetanus Booster (TDap): Less than 5yrs Second COVID19 Vaccination Armando: DECEMBER COVID19 Vaccine [employer]: [employer] Seasonal Allergies Seasonal Allergies: No Past Medical History Surgery/Hospitalization HX: PMH: DM INSULIN DEP, HTN, HIGH CHOL, SCHIZOEFFECTIVE, ADHD, ANXIETY Surgeries: Yes (I&D OF ABSCESS TO CHIN/NECK AREA) Respiratory: No Currently Using CPAP: No Currently Using BIPAP: No Cardiac: No Neurological: No Genitourinary: No Gastrointestinal: Yes (HEPATITIS--UNKNOWN TYPE) Liver Disease/Jaundice, Hepatitis Musculoskeletal: No Endocrine: Yes (TYPE 1 DIABETES) Diabetes, Insulin dep HEENT: No Cancer: No Psychosocial: Yes (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) ADD/ADHD, Anxiety, Suicide Attempts, Bipolar, Schizophrenia, Depression Integumentary: Yes (HX OF MRSA) Blood Disorders: No Family Medical History Alcoholism G8 BROTHER Arthritis Asthma 19 MOTHER (copd & hypotention) Cardiovascular disease 19 FATHER (cva) Completed stroke 19 FATHER Hypercholesterolemia 19 FATHER G8 SISTER Hypertension 19 FATHER Thyroid disease G8 SISTER (hyperthyroid) SOCIAL HISTORY: -HX OF ALCOHOL ABUSE, NOW ONLY "OCCASIONALLY" USES -DRUGS--EXTENSIVE IV METH USE, HX OF IV COCAINE USE, THC USE -SMOKES 1 PPD MULTIPLE PSYCH ADMITS Physical Exam Vital Signs Vital Signs - First Documented 03/26/21 03/26/21 03/26/21 03/27/21 13:19 15:45 18:25 11:15 Temp 36.5 Pulse 104 Resp 18 B/P (MAP) 143/85 (104) Pulse Ox 97 O2 Delivery Room Air O2 Flow Rate 8 FiO2 21 Capillary Refill : Less Than 3 Seconds Height, Weight, BMI Height: 5'8.00" Weight: 162lbs. 1.6oz. [id number]; 20.00 BMI Method:Stated General Appearance: WD/WN, mild distress HEENT: PERRL/EOMI Cardiovascular: regular rate, rhythm, tachycardia Respiratory: lungs clear, normal breath sounds, no respiratory distress, no accessory muscle use Gastrointestinal: non tender, soft Shoulder: normal inspection Elbow/Forearm: Right, soft tissue tenderness, swelling (Patient has extensive erythema throughout the right forearm both volar and dorsal aspects. He has a 1 cm diameter scabbed lesion to the dorsum of his right forearm. The erythema extends approximately past the elbow into the mid upper arm. Skin marker has been used to rianna the margins of the redness. No abscess is palpable. No fluctuance. No active drainage from wounds. No crepitance to the skin. The forearm is tender to palpation) Hand: swelling (Some swelling noted in the dorsal aspect of the right hand) Neurologic/Psychiatric: no motor/sensory deficits, alert, normal mood/affect, oriented x 3 Skin: warm/dry Progress/Results/Core Measures Results/Orders Lab Results Laboratory Tests Test 03/28/21 01:05 03/28/21 05:31 03/28/21 11:44 03/28/21 12:24 Range/Units White Blood Count 6.9 4.3-11.0 10^3/uL Red Blood Count 3.49 L 4.30-5.52 10^6/uL Hemoglobin 10.7 L 13.3-17.7 g/dL Hematocrit 32 L 40-54 % Mean Corpuscular Volume 93 80-99 fL Mean Corpuscular Hemoglobin 31 25-34 pg Mean Corpuscular Hemoglobin Concent 33 32-36 g/dL Red Cell Distribution Width 12.7 10.0-14.5 % Platelet Count 280 130-400 10^3/uL Mean Platelet Volume 11.0 9.0-12.2 fL Immature Granulocyte % (Auto) 0 % Neutrophils (%) (Auto) 48 42-75 % Lymphocytes (%) (Auto) 39 12-44 % Monocytes (%) (Auto) 5 0-12 % Eosinophils (%) (Auto) 7 0-10 % Basophils (%) (Auto) 1 0-10 % Neutrophils # (Auto) 3.3 1.8-7.8 10^3/uL Lymphocytes # (Auto) 2.7 1.0-4.0 10^3/uL Monocytes # (Auto) 0.4 0.0-1.0 10^3/uL Eosinophils # (Auto) 0.5 H 0.0-0.3 10^3/uL Basophils # (Auto) 0.1 0.0-0.1 10^3/uL Immature Granulocyte # (Auto) 0.0 0.0-0.1 10^3/uL Sodium Level 136 135-145 MMOL/L Potassium Level 4.4 3.6-5.0 MMOL/L Chloride Level 103 98-107 MMOL/L Carbon Dioxide Level 24 21-32 MMOL/L Anion Gap 9 5-14 MMOL/L Blood Urea Nitrogen 13 7-18 MG/DL Creatinine 0.81 0.60-1.30 MG/DL Estimat Glomerular Filtration Rate 106 BUN/Creatinine Ratio 16 Glucose Level 236 H 70-105 MG/DL Calcium Level 7.8 L 8.5-10.1 MG/DL Corrected Calcium 8.9 8.5-10.1 MG/DL Total Bilirubin 0.1 0.1-1.0 MG/DL Aspartate Amino Transf (AST/SGOT) 46 H 5-34 U/L Alanine Aminotransferase (ALT/SGPT) 34 0-55 U/L Alkaline Phosphatase 73 40-136 U/L Total Protein 4.9 L 6.4-8.2 GM/DL Albumin 2.6 L 3.2-4.5 GM/DL Vancomycin Level Trough 6.5 L 10.0-20.0 UG/ML Glucometer 218 H 51 *L 89 70-110 MG/DL Test 03/28/21 15:49 03/28/21 20:15 03/29/21 05:23 03/29/21 06:26 Range/Units Glucometer 243 H 106 196 H 70-110 MG/DL White Blood Count 7.5 4.3-11.0 10^3/uL Red Blood Count 3.70 L 4.30-5.52 10^6/uL Hemoglobin 11.3 L 13.3-17.7 g/dL Hematocrit 35 L 40-54 % Mean Corpuscular Volume 94 80-99 fL Mean Corpuscular Hemoglobin 31 25-34 pg Mean Corpuscular Hemoglobin Concent 33 32-36 g/dL Red Cell Distribution Width 12.2 10.0-14.5 % Platelet Count 295 130-400 10^3/uL Mean Platelet Volume 10.9 9.0-12.2 fL Immature Granulocyte % (Auto) 0 % Neutrophils (%) (Auto) 48 42-75 % Lymphocytes (%) (Auto) 39 12-44 % Monocytes (%) (Auto) 6 0-12 % Eosinophils (%) (Auto) 6 0-10 % Basophils (%) (Auto) 1 0-10 % Neutrophils # (Auto) 3.6 1.8-7.8 10^3/uL Lymphocytes # (Auto) 2.9 1.0-4.0 10^3/uL Monocytes # (Auto) 0.5 0.0-1.0 10^3/uL Eosinophils # (Auto) 0.5 H 0.0-0.3 10^3/uL Basophils # (Auto) 0.1 0.0-0.1 10^3/uL Immature Granulocyte # (Auto) 0.0 0.0-0.1 10^3/uL Sodium Level 137 135-145 MMOL/L Potassium Level 5.1 H 3.6-5.0 MMOL/L Chloride Level 105 98-107 MMOL/L Carbon Dioxide Level 23 21-32 MMOL/L Anion Gap 9 5-14 MMOL/L Blood Urea Nitrogen 11 7-18 MG/DL Creatinine 0.80 0.60-1.30 MG/DL Estimat Glomerular Filtration Rate 107 BUN/Creatinine Ratio 14 Glucose Level 220 H 70-105 MG/DL Calcium Level 8.0 L 8.5-10.1 MG/DL Corrected Calcium 9.0 8.5-10.1 MG/DL Total Bilirubin < 0.1 L 0.1-1.0 MG/DL Aspartate Amino Transf (AST/SGOT) 28 5-34 U/L Alanine Aminotransferase (ALT/SGPT) 29 0-55 U/L Alkaline Phosphatase 71 40-136 U/L Total Protein 5.4 L 6.4-8.2 GM/DL Albumin 2.7 L 3.2-4.5 GM/DL Test 03/29/21 09:56 03/29/21 15:19 03/29/21 16:58 03/29/21 17:07 Range/Units Glucometer 177 H 234 H 275 H 70-110 MG/DL Vancomycin Level Trough 16.9 10.0-20.0 UG/ML Test 03/29/21 20:11 Range/Units Glucometer 126 H 70-110 MG/DL My Orders Vital Signs/I&O 03/29/21 03/29/21 03/29/21 16:00 20:00 20:02 Temp 36.2 36.6 Pulse 73 93 Resp 18 20 B/P (MAP) 148/88 (108) 123/68 (86) Pulse Ox 98 99 O2 Delivery Room Air Room Air Room Air Blood Pressure Mean: 104 Diagnostic Imaging Diagonstic Imaging: Xray Plain Films/CT/US/NM/MRI: chest Comments [facility], [place] NAME: DULCE NAVAS [facility] REC#: [id number] PT STATUS: REG ER : 1980 PHYSICIAN: ALEKSANDR ABDUL MD ADMIT DATE: 03/26/21/ER Signed Date of Exam:03/26/21 CHEST 1 VIEW, AP/PA ONLY INDICATION: Sepsis. Comparison with 02/26/2021. FINDINGS: The lungs are well aerated and clear. The right arm does obscure the costophrenic angle on the right. The heart is not enlarged. There is no pulmonary edema or hilar adenopathy. No pneumothorax or pleural effusion. IMPRESSION: Negative portable chest as described. Dictated by: Dictated on workstation # [id number] Dict: 03/26/21 1409 Trans: 03/26/21 1420 CVB [id number] Interpreted by: CONRAD SOLIS MD Electronically signed by: CONRAD SOLIS MD 03/26/21 1420 Departure Communication (Admissions) Time/Spoke to Admitting Phy: 14:[address] Avendano; inpatient admission; consult surgery Time/Spoke to Consulting Phy: 14:35 Impression Primary Impression: Cellulitis Qualified Codes: L03.113 - Cellulitis of right upper limb Additional Impressions: Type 1 diabetes mellitus Qualified Codes: E10.628 - Type 1 diabetes mellitus with other skin complications Methamphetamine use Disposition: ADMITTED INPATIENT Condition: Stable Admissions Decision to Admit Reason: Admit from ER (General) Decision to Admit/Date: Mar 26, 2021 Time/Decision to Admit Time: 14:30 Departure-Patient Inst. Referrals: [facility] [place] ([place]P/Family) Primary Care Physician Scripts Linezolid (Zyvox) 600 Mg Tablet 600 MG PO BID, #14 TAB Prov: ANDRES AVENDANO DO 03/29/21 Hydrocodone Bit/Acetaminophen (HYDROcodone/APAP 5 MG/325 MG TAB) 1 Tab Tab 1 EA PO Q4H PRN for PAIN-MODERATE (5-7), #30 TAB Prov: ANDRES AVENDANO DO 03/29/21 ALEKSANDR ABDUL MD Mar 26, 2021 13:37
[2021-03-26] MEDS ORDERED: NS IV 1000 ML 1,000 ML IV SCH (13:45)
[2021-03-26 13:54] LABS: BASOPHILS # (AUTO) 0.1 10^3/uL (0.0-0.1); BASOPHILS % (AUTO) 1 % (0-10); EOSINOPHILS # (AUTO) 0.4 10^3/uL (0.0-0.3); EOSINOPHILS % (AUTO) 3 % (0-10); HEMATOCRIT 34 % (40-54); HEMOGLOBIN 11.8 g/dL (13.3-17.7); LYMPHOCYTES # (AUTO) 1.7 10^3/uL (1.0-4.0); LYMPHOCYTES % (AUTO) 14 % (12-44); MEAN CORPUSCULAR HEMOGLOBIN 31 pg (25-34); MEAN CORPUSCULAR HGB CONC 35 g/dL (32-36); MEAN CORPUSCULAR VOLUME 89 fL (80-99); MEAN PLATELET VOLUME 10.9 fL (9.0-12.2); MONOCYTES # (AUTO) 0.7 10^3/uL (0.0-1.0); MONOCYTES % (AUTO) 6 % (0-12); NEUTROPHILS # (AUTO) 9.1 10^3/uL (1.8-7.8); NEUTROPHILS % (AUTO) 76 % (42-75); PLATELET COUNT 286 10^3/uL (130-400)
[2021-03-26 14:04] LABS: ALBUMIN 3.4 GM/DL (3.2-4.5); POTASSIUM 3.5 MMOL/L (3.6-5.0)
[2021-03-26 14:05] LABS: CALCIUM 8.7 MG/DL (8.5-10.1)
[2021-03-26 14:06] LABS: TOTAL PROTEIN 6.2 GM/DL (6.4-8.2)
[2021-03-26 14:08] LABS: BILIRUBIN,TOTAL 0.4 MG/DL (0.1-1.0)
[2021-03-26 14:10] LABS: CREATININE SERUM 0.9 MG/DL (0.60-1.30)
--- NOTE | 2021-03-26 14:12 | Diagnostic Imaging Report ---
INDICATION: Sepsis. Comparison with 02/26/2021. FINDINGS: The lungs are well aerated and clear. The right arm does obscure the costophrenic angle on the right. The heart is not enlarged. There is no pulmonary edema or hilar adenopathy. No pneumothorax or pleural effusion. IMPRESSION: Negative portable chest as described. Dictated by: Dictated on workstation # [id number]
--- NOTE | 2021-03-26 15:21 | History & Physical-Hospitalist ---
History of Present Illness HPI/Chief Complaint Chief complaint: Right arm cellulitis with early abscess History of present illness: This is a 40-year-old white male clinic patient of [facility] with diabetes who presents after failing oral antibiotics as an outpatient given to him by the clinic for right arm cellulitis. Patient does have a history of MRSA. Patient does have jvm-nk-ctoyevd diabetes. The right arm has worsened to the point of consulting general surgery in case an incision and drainage will be needed. Source: patient Exam Limitations: no limitations Date Seen 03/26/21 Time Seen by a Provider: 14:30 Attending Physician Audrey Britt DO [facility] Referring Physician Date of Admission Mar 26, 2021 at 14:34 Home Medications & Allergies Home Medications Reviewed patient Home Medication Reconciliation performed by pharmacy medication reconciliations health technician hearing and/or nursing. Patients Allergies have been reviewed. Allergies Allergies Coded Allergies No Known Drug Allergies (Unverified12/02/13) Past Nqibbeu-Hyjtxi-Vwnsym Hx Patient Social History Marrital Status: single Employed/Student: unemployed Tobacco Use?: Yes Smoking Status: Current Everyday Smoker Substance use?: Yes Substance type: Methamphetamine Substance frequency: Daily Alcohol Use?: No Pt feels they are or have been: No Immunizations Up To Date Second COVID19 Vaccination Armando: MAY Tetanus Booster (TDap): Less Than 5 Years Hepatitis A: No Hepatitis B: No Seasonal Allergies Seasonal Allergies: No Current Status Advance Directives: No Primary Language: Israeli Preferred Spoken Language: Israeli Past Medical History Currently Using CPAP: No Currently Using BIPAP: No Liver Disease/Jaundice, Hepatitis Diabetes, Insulin dep ADD/ADHD, Anxiety, Suicide Attempts, Bipolar, Schizophrenia, Depression Blood Disorders: No PMHx: DMI Schizoaffective Depression Family Medical History Alcoholism G8 BROTHER Arthritis Asthma 19 MOTHER (copd & hypotention) Cardiovascular disease 19 FATHER (cva) Completed stroke 19 FATHER Hypercholesterolemia 19 FATHER G8 SISTER Hypertension 19 FATHER Thyroid disease G8 SISTER (hyperthyroid) SOCIAL HISTORY: -HX OF ALCOHOL ABUSE, NOW ONLY "OCCASIONALLY" USES -DRUGS--EXTENSIVE IV METH USE, HX OF IV COCAINE USE, THC USE -SMOKES 1 PPD MULTIPLE PSYCH ADMITS Review of Systems Constitutional: see HPI Physical Exam Physical Exam Vital Signs Vital Signs - First Documented 03/26/21 03/26/21 03/26/21 13:19 15:45 18:25 Temp 36.5 Pulse 104 Resp 18 B/P (MAP) 143/85 (104) Pulse Ox 97 O2 Delivery Room Air FiO2 21 Capillary Refill : Less Than 3 Seconds Height, Weight, BMI Height: 5'8.00" Weight: 162lbs. 1.6oz. 73.556343lc; 20.00 BMI Method:Stated General Appearance: No Apparent Distress Eyes: Right Eye Normal Inspection, Right Eye PERRL HEENT: PERRL/EOMI, Normal ENT Inspection, Pharynx Normal, Moist Mucous Membranes Neck: Full Range of Motion, Normal Inspection, Non Tender Respiratory: Chest Non Tender, Lungs Clear, Normal Breath Sounds, No Accessory Muscle Use, No Respiratory Distress Cardiovascular: Regular Rate, Rhythm, No Edema, No Gallop, No JVD, No Murmur, Normal Peripheral Pulses Gastrointestinal: Normal Bowel Sounds, No Organomegaly, No Pulsatile Mass, Non Tender, Soft Back: Normal Inspection, No CVA Tenderness, No Vertebral Tenderness Extremity: Normal Capillary Refill, Normal Inspection, Normal Range of Motion, Non Tender, No Calf Tenderness, No Pedal Edema Neurologic/Psychiatric: Alert, Oriented x3, No Motor/Sensory Deficits, Normal Mood/Affect Skin: Normal Color, Warm/Dry, Rash (Cellulitis right arm with early abscess formation with fluctuance) Lymphatic: No Adenopathy Results Results/Procedures Labs Laboratory Tests 03/26/21 13:40 Patient resulted labs reviewed. Assessment/Plan Admission Diagnosis Assessment: Right arm cellulitis with early abscess formation failed oral antibiotics Diabetes mellitus Hepatitis Mental illness Plan: IV antibiotics General surgery consultation [facility] Insulin Admission Status: Inpatient Order (span 2 midnights) Reason for Inpatient Admission: Severe cellulitis risk for compartment syndrome AUDREY BRITT DO Mar 26, 2021 15:21
[2021-03-26 15:45] VITALS: BP 104/64
[2021-03-26] MEDS ORDERED: ACETAMINOPHEN 500 MG TAB (TYLENOL) PO PRN (16:30)
--- NOTE | 2021-03-26 16:37 | Consultation - Surgery ---
History of Present Illness History of Present Illness Patient Consulted On(dona/time) 03/26/21 16:32 Time Seen by Provider: 15:21 History of Present Illness Surgery asked to consult regarding Cellulitis HPI per ED: PT PRESENTS TO ED VIA POV FROM HOME WITH COMPLAINTS OF R ARM SWELLING AND REDNESS STARTING APROX 3-4 DAYS AGO. PT REPORTS HX OF IV DRUG USE. Patient is a 40-year-old male who presents to the emergency room with a chief complaint of an infection in his right forearm spreading up into his upper arm. Patient states that he has had symptoms for about 3 days. He has been on Bactrim. He states he went to [facility] yesterday and got "a shot" and he cannot recall what antibiotic he got. He states he has a history of MRSA infections in the past. He is concerned that he has MRSA now. Patient states that he has had some fevers and chills. No productive cough, sore throat runny nose congestion headache, no diarrhea nausea or vomiting. No urinary complaints. He is an insulin-dependent diabetic. He also has a history of IV drug abuse and last used 2 days ago. Last time he used he injected into his right AC space in the lateral aspect. He states he has a sore on the dorsal part of his right forearm that he has been scratching at but he believes is the source of the infection. He states he has been taking his Bactrim as prescribed. He states over the last 24 hours the redness has spread and he has increasing discomfort. He is homeless. He is visiting here for 2 weeks, planning to go to drug rehab. He does not have a local physician but does go to [facility]. Onset: last week Severity: moderate Pain/Injury Location: right arm, right elbow, right forearm Method of Injury: unknown Modifying Factors: Worse With Movement When I saw pt he was in ER stated the arm is not getting better and that something similar happened af couple years ago. He was told he had MRSA. Allergies and Home Medications Allergies Coded Allergies: No Known Drug Allergies (Unverified , 12/02/13) Home Medications Hydroxyzine HCl 50 Mg Tablet, 50 MG PO Q6H PRN for NAUSEA/VOMITING Prescribed by: MOE SOLITARIO on 02/23/20 2221 Insulin Aspart 300 Units/3 Ml Solution, 7 UNITS SQ AC Prescribed by: BERTHA JIMENEZ on 02/26/21 0847 Insulin Degludec 100 Unit/1 Ml Insuln.pen, 20 UNIT SQ BID Prescribed by: BERTHA JIMENEZ on 02/26/21846 Ondansetron 4 Mg Tab.rapdis, 4 MG PO Q4H PRN for NAUSEA-1ST LINE Prescribed by: BRADLY CORDOBA on 07/18/201714 Pantoprazole Sodium 20 Mg Tablet.dr, 20 MG PO DAILY Prescribed by: BRADLY CORDOBA on 07/18/201714 Pravastatin Sodium 20 Mg Tablet, 20 MG PO DAILY, (Reported) Risperidone 1 Mg Tablet, 1 MG PO BID Prescribed by: LATRICIA ARTEAGA on 01/17/20 1006 Patient Home Medication List Home Medication List Reviewed: Yes Past Kcwwcdc-Eumvzg-Qwrtym Hx Patient Social History Smoking Status: Current Everyday Smoker Type Used: Cigarettes 2nd Hand Smoke Exposure: Yes Recent Hopitalizations: No Alcohol Use?: No Substance type: Methamphetamine Have you traveled recently?: No Immunizations Up To Date Tetanus Booster (TDap): Less than 5yrs Seasonal Allergies Seasonal Allergies: No Surgeries History of Surgeries: Yes (I&D OF ABSCESS TO CHIN/NECK AREA) Respiratory History of Respiratory Disorde: No Cardiovascular History of Cardiac Disorders: No Neurological History of Neurological Disord: No Genitourinary History of Genitourinary Disor: No Gastrointestinal History of Gastrointestinal Di: Yes (HEPATITIS--UNKNOWN TYPE) Gastrointestinal Disorders: Liver Disease/Jaundice, Hepatitis Musculoskeletal History of Musculoskeletal Dis: No Endocrine History of Endocrine Disorders: Yes (TYPE 1 DIABETES) Endocrine Disorders: Diabetes, Insulin dep HEENT History of HEENT Disorders: No Cancer History of Cancer: No Psychosocial History of Psychiatric Problem: Yes (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) Behavioral Health Disorders: ADD/ADHD, Anxiety, Suicide Attempts, Bipolar, Schizophrenia, Depression Integumentary History of Skin or Integumenta: Yes (HX OF MRSA) Blood Transfusions History of Blood Disorders: No Family Medical History Significant Family History: CAD Under 55 Years Old, Diabetes, Hypertension, Stroke Family Medial History: Alcoholism G8 BROTHER Arthritis Asthma 19 MOTHER (copd & hypotention) Cardiovascular disease 19 FATHER (cva) Completed stroke 19 FATHER Hypercholesterolemia 19 FATHER G8 SISTER Hypertension 19 FATHER Thyroid disease G8 SISTER (hyperthyroid) Review of Systems-General Constitutional: fever, malaise, weakness EENTM: No blurred vision, No double vision, No mouth pain Respiratory: No cough, No dyspnea on exertion Cardiovascular: No chest pain, No palpitations Gastrointestinal: No abdominal pain, No nausea, No vomiting Genitourinary: No dysuria, No frequency, No hematuria Musculoskeletal: joint pain, joint swelling, muscle pain, muscle stiffness Skin: change in color; No change in hair/nails; other (cellulitis) Psychiatric/Neurological: Anxiety, Depressed, Emotional Problems, Seizure; Denies Tremors Physical Exam-General Problems Physical Exam Vital Signs Vital Signs - First Documented 03/26/21 03/26/21 13:19 15:45 Temp 36.5 Pulse 104 Resp 18 B/P (MAP) 143/85 (104) Pulse Ox 97 O2 Delivery Room Air Capillary Refill : Less Than 3 Seconds General Appearance: WD/WN, mild distress Eyes: Bilateral Eye PERRL, Bilateral Eye EOMI HEENT: pharynx normal; No scleral icterus (R), No scleral icterus (L) Neck: non-tender, supple Respiratory: lungs clear, normal breath sounds, no respiratory distress, no accessory muscle use Cardiovascular: regular rate, rhythm, no murmur Gastrointestinal: non tender, soft, no organomegaly Back: no CVA tenderness, no vertebral tenderness Extremities: no pedal edema, no calf tenderness, other (right upper arm is swollen, erythematous, middle of arm nearer to ulna is small necrotic area/scab. Erythema goes up past his elbow, arm is bigger than left) Neurologic/Psychiatric: clock and watch hands dipper II-XII nml as tested, alert, oriented x 3 Skin: normal color (except for right arm), warm/dry Lymphatic: no adenopathy (neck or groin), axilla node tender (R) Data Review Labs Laboratory Tests 03/26/21 13:40: White Blood Count 12.0H, Red Blood Count 3.80L, Hemoglobin 11.8L, Hematocrit 34L , Mean Corpuscular Volume 89, Mean Corpuscular Hemoglobin 31, Mean Corpuscular Hemoglobin Concent 35, Red Cell Distribution Width 12.6, Platelet Count 286, Mean Platelet Volume 10.9, Immature Granulocyte % (Auto) 0, Neutrophils (%) (Auto) 76H, Lymphocytes (%) (Auto) 14, Monocytes (%) (Auto) 6, Eosinophils (%) (Auto) 3, Basophils (%) (Auto) 1, Neutrophils # (Auto) 9.1H, Lymphocytes # (Auto) 1.7, Monocytes # (Auto) 0.7, Eosinophils # (Auto) 0.4H, Basophils # (Auto) 0.1, Immature Granulocyte # (Auto) 0.1, Prothrombin Time 14.0, INR Comment 1.0, Activated Partial Thromboplast Time 40H, Sodium Level 140, Potassium Level 3.5L, Chloride Level 105, Carbon Dioxide Level 23, Anion Gap 12, Blood Urea Nitrogen 19H, Creatinine 0.90, Estimat Glomerular Filtration Rate 93, BUN/Creatinine Ratio 21, Glucose Level 165H, Lactic Acid Level 0.94, Calcium Level 8.7, Corrected Calcium 9.2, Total Bilirubin 0.4, Aspartate Amino Transf (AST/SGOT) 35H, Alanine Aminotransferase (ALT/SGPT) 28, Alkaline Phosphatase 81, C-Reactive Protein High Sensitivity 15.78H, Total Protein 6.2L, Albumin 3.4, Beta-Hydroxybutyrate (Chem panel) 0.68H Assessment/Plan Assessment/Plan Assessment/Plan Right upper Extremity Cellulitis, with possible abscess I reviewed the US myself and think there might be a fluid collection, will wait for the final radiology reading. Will make pt NPO after midnight and probably take him for I&D of right arm; with possible packing and possible debridement. He is getting IV ABX, will make sure he has pain control and IV fluids. Discussed the procedure with pt; risks and complications not limited to pain, bleeding, infection, scar and damage to musles or nerves. All questions answered to his satisfaction. CONRAD PEDERSEN DO Mar 26, 2021 16:37
--- NOTE | 2021-03-26 16:44 | Diagnostic Imaging Report ---
TECHNIQUE: Grayscale and color Doppler ultrasound was performed of the right upper extremity. REASON FOR EXAM: Cellulitis. Evaluate for abscess. COMPARISON: None. FINDINGS: A focal hypoechoic area is seen in the right forearm measuring 4.7 x 0.8 x 4.0 cm. No drainable fluid collections identified. Surrounding soft tissue edema is present. No significant hypervascularity is seen associated with this area. IMPRESSION: 1. Findings likely representing a phlegmon or early abscess within the right forearm. No drainable fluid collection is present at this time. Dictated by: Dictated on workstation # [id number]
[2021-03-26] MEDS: NS IV 1000 ML 1,000 ML IV SCH (17:18)
[2021-03-26 18:25] VITALS: BP 143/85
[2021-03-26] MEDS ORDERED: RT-ALBUTEROL SULF 2.5 MG/3 ML PRE-MIX VIAL INH PRN (18:30)
[2021-03-26] MEDS ORDERED: diphenhydrAMINE 25 MG TAB (BENADRYL) PO PRN (20:15)
[2021-03-26] MEDS ORDERED: MELATONIN 3 MG TABLET PO PRN (20:15)
[2021-03-26] MEDS ORDERED: CALCIUM CARBONATE 500 MG (TUMS) TAB.CHEW PO PRN (20:15)
[2021-03-26] MEDS ORDERED: ONDANSETRON 4 MG (ZOFRAN) ORAL DISSOLVE TAB PO PRN (20:15)
[2021-03-26] MEDS ORDERED: ONDANSETRON 4 MG/2 ML (SDV) Z0FRAN IVP PRN (20:15)
[2021-03-26] MEDS ORDERED: LOPERAMIDE 2 MG (IMODIUM) TABLET PO PRN (20:15)
[2021-03-26] MEDS ORDERED: DOCUSATE SODIUM 100 MG (COLACE) CAP PO PRN (20:15)
[2021-03-26 20:22] VITALS: BP 122/71
[2021-03-26] MEDS ORDERED: ALPRAZolam 0.25 MG (XANAX) TAB ONE (20:25)
[2021-03-26] MEDS ORDERED: HYDROcodone/APAP 5 MG/325 MG (LORTAB) TAB ONE (20:26)
[2021-03-26] MEDS ORDERED: inSUlin ASPART (NovoLOG) 1 UNIT/0.01 ML (CHARGE PER UNIT) ONE (20:27)
[2021-03-26] MEDS: PIPERACILLIN/TAZO 4.5 GM/NS 100 ML IV SCH ×2 (20:29)
[2021-03-26] MEDS: HYDROcodone/APAP 5 MG/325 MG (LORTAB) TAB PO PRN (20:29)
[2021-03-26] MEDS: polyethylene glycoL POWDER 17 GM (MIRALAX) PACK PO SCH (20:32)
[2021-03-26] MEDS: ALPRAZolam 0.25 MG (XANAX) TAB PO PRN (20:33)
[2021-03-26] MEDS: inSUlin ASPART (NovoLOG) 1 UNIT/0.01 ML (CHARGE PER UNIT) SC SCH (20:33)
[2021-03-26] MEDS: ENOXAPARIN 40 MG/0.4 ML (LOVENOX) SYR SC SCH (21:12)
[2021-03-26 23:53] VITALS: BP 104/60
[2021-03-27] VITALS (11 sets, daily range): BP systolic 96–124; BP diastolic 55–71
[2021-03-27] MEDS: HYDROcodone/APAP 5 MG/325 MG (LORTAB) TAB PO PRN ×4 (00:17→21:05)
[2021-03-27 01:10] LABS: AMPHETAMINE SCREEN, URINE POSITIVE (NEGATIVE); BARBITURATE SCREEN URINE NEGATIVE (NEGATIVE); BENZODIAZEPINES SCREEN URINE POSITIVE (NEGATIVE); CANNABINOID SCREEN, URINE NEGATIVE (NEGATIVE); COCAINE SCREEN URINE NEGATIVE (NEGATIVE); METHADONE STAT NEGATIVE (NEGATIVE); METHAMPHETAMINE SCREEN URINE S POSITIVE (NEGATIVE); OPIATE SCREEN URINE POSITIVE (NEGATIVE); OXYCODONE STAT NEGATIVE (NEGATIVE); PROPOXYPHENE STAT NEGATIVE (NEGATIVE); TRICYCLIC ANTIDEPRESSANTS SCRE NEGATIVE (NEGATIVE)
[2021-03-27] MEDS: VANCOMYCIN 1 GM/NS 250 ML IVPB IV SCH ×4 (02:04→13:31)
[2021-03-27] MEDS: PIPERACILLIN/TAZO 4.5 GM/NS 100 ML IV SCH ×6 (05:08→21:04)
[2021-03-27] MEDS: NS IV 1000 ML 1,000 ML IV SCH ×2 (05:13→16:22)
[2021-03-27] MEDS: inSUlin ASPART (NovoLOG) 1 UNIT/0.01 ML (CHARGE PER UNIT) SC SCH ×4 (05:44→20:59)
[2021-03-27 06:46] LABS: BASOPHILS # (AUTO) 0.1 10^3/uL (0.0-0.1); BASOPHILS % (AUTO) 1 % (0-10); EOSINOPHILS # (AUTO) 0.6 10^3/uL (0.0-0.3); EOSINOPHILS % (AUTO) 6 % (0-10); HEMATOCRIT 34 % (40-54); HEMOGLOBIN 11.3 g/dL (13.3-17.7); LYMPHOCYTES # (AUTO) 2.8 10^3/uL (1.0-4.0); LYMPHOCYTES % (AUTO) 28 % (12-44); MEAN CORPUSCULAR HEMOGLOBIN 31 pg (25-34); MEAN CORPUSCULAR HGB CONC 33 g/dL (32-36); MEAN CORPUSCULAR VOLUME 93 fL (80-99); MONOCYTES # (AUTO) 0.6 10^3/uL (0.0-1.0); MONOCYTES % (AUTO) 6 % (0-12); NEUTROPHILS # (AUTO) 5.8 10^3/uL (1.8-7.8); NEUTROPHILS % (AUTO) 58 % (42-75); PLATELET COUNT 259 10^3/uL (130-400)
[2021-03-27 06:59] LABS: ALBUMIN 2.9 GM/DL (3.2-4.5); POTASSIUM 3.9 MMOL/L (3.6-5.0)
[2021-03-27 07:01] LABS: CALCIUM 8.1 MG/DL (8.5-10.1)
[2021-03-27 07:02] LABS: TOTAL PROTEIN 5.4 GM/DL (6.4-8.2)
[2021-03-27 07:03] LABS: BILIRUBIN,TOTAL 0.3 MG/DL (0.1-1.0)
[2021-03-27 07:05] LABS: CREATININE SERUM 0.72 MG/DL (0.60-1.30)
[2021-03-27] MEDS: morphine INJ 10 MG/ML 1ML (SYR OR VIAL) IVP PRN ×4 (08:33→21:50)
--- NOTE | 2021-03-27 08:39 | Progress Note - Surgery ---
NAHUN MATTHEWS 03/27/21 0839: Subjective Date Seen by a Provider: Mar 27, 2021 Time Seen by a Provider: 07:45 Subjective/Events-last exam PT resting in bed with notable right sided arm swelling, which is warm to the touch. PT also displaying some tremors consistent with withdraw, pt confirms its "been a few days" since last using meth. Review of Systems General: No Chills, No Night Sweats; Fatigue HEENT: No Head Aches, No Visual Changes, No Eye Pain, No Ear Pain Pulmonary: No Dyspnea, No Cough Cardiovascular: No: Chest Pain, Palpitations Gastrointestinal: No: Nausea, Vomiting, Diarrhea, Constipation Genitourinary: No Dysuria, No Frequency Musculoskeletal: arm pain; No: neck pain, shoulder pain, back pain, hand pain Neurological: No: Weakness, Numbness, Change in speech Focused Exam Lactate Level 03/26/21 13:40: Lactic Acid Level 0.94 Objective Exam Vital Signs Date Time Temp Pulse Resp B/P (MAP) Pulse Ox O2 Delivery O2 Flow Rate FiO2 03/27/21 08:25 36.6 75 18 117/71 (86) 98 Room Air 03/27/21 04:00 37.2 81 18 101/59 (73) 97 Room Air 03/26/21 23:53 37.1 88 16 104/60 (75) 98 Room Air 03/26/21 20:22 36.7 86 18 122/71 (88) 97 Room Air 03/26/21 19:59 97 Simple Mask 03/26/21 18:25 36.5 104 97 21 03/26/21 17:04 98 Room Air 03/26/21 15:45 36.9 90 18 104/64 (77) 98 Room Air 03/26/21 15:40 100 18 143/85 96 03/26/21 13:19 36.5 104 18 143/85 (104) 97 I & O 03/27/21 07:00 Intake Total 1625 ml Balance 1625 ml Capillary Refill : Less Than 3 Seconds General Appearance: No Apparent Distress, Anxious HEENT: PERRL/EOMI, Pharynx Normal, Moist Mucous Membranes Neck: Full Range of Motion, Normal Inspection, Non Tender, Supple Respiratory: Chest Non Tender, Lungs Clear, Normal Breath Sounds, No Accessory Muscle Use, No Respiratory Distress Cardiovascular: Regular Rate, Rhythm, No Edema, No Gallop, No Murmur, Normal Peripheral Pulses Peripheral Pulses: 2+ Radial Pulses (R), 2+ Radial Pulses (L) Gastrointestinal: non tender, soft, no organomegaly Extremity: Normal Capillary Refill, Normal Inspection, Normal Range of Motion, Non Tender, No Calf Tenderness, No Pedal Edema Neurologic/Psychiatric: Alert, Oriented x3, No Motor/Sensory Deficits, Normal Mood/Affect, crm marketing manager II-XII Norm as Tested Skin: Normal Color, Warm/Dry, Rash (warm and swollen right arm ) Lymphatic: No Adenopathy Results Lab Laboratory Tests 03/26/21 13:40: White Blood Count 12.0H, Red Blood Count 3.80L, Hemoglobin 11.8L, Hematocrit 34L , Mean Corpuscular Volume 89, Mean Corpuscular Hemoglobin 31, Mean Corpuscular Hemoglobin Concent 35, Red Cell Distribution Width 12.6, Platelet Count 286, Mean Platelet Volume 10.9, Immature Granulocyte % (Auto) 0, Neutrophils (%) (Auto) 76H, Lymphocytes (%) (Auto) 14, Monocytes (%) (Auto) 6, Eosinophils (%) (Auto) 3, Basophils (%) (Auto) 1, Neutrophils # (Auto) 9.1H, Lymphocytes # (Auto) 1.7, Monocytes # (Auto) 0.7, Eosinophils # (Auto) 0.4H, Basophils # (Auto) 0.1, Immature Granulocyte # (Auto) 0.1, Prothrombin Time 14.0, INR Comment 1.0, Activated Partial Thromboplast Time 40H, Sodium Level 140, Potassium Level 3.5L, Chloride Level 105, Carbon Dioxide Level 23, Anion Gap 12, Blood Urea Nitrogen 19H, Creatinine 0.90, Estimat Glomerular Filtration Rate 93, BUN/Creatinine Ratio 21, Glucose Level 165H, Lactic Acid Level 0.94, Calcium Level 8.7, Corrected Calcium 9.2, Total Bilirubin 0.4, Aspartate Amino Transf (AST/SGOT) 35H, Alanine Aminotransferase (ALT/SGPT) 28, Alkaline Phosphatase 81, C-Reactive Protein High Sensitivity 15.78H, Total Protein 6.2L, Albumin 3.4, Beta-Hydroxybutyrate (Chem panel) 0.68H 03/26/21 17:30: SARS-CoV-2 RNA (RT-PCR) Not Detected 03/26/21 20:02: Glucometer 207H 03/27/21 00:32: Urine Opiates Screen POSITIVEH, Urine Oxycodone Screen NEGATIVE, Urine Methadone Screen NEGATIVE, Urine Propoxyphene Screen NEGATIVE, Urine Barbiturates Screen NEGATIVE, Ur Tricyclic Antidepressants Screen NEGATIVE, Urine Phencyclidine Screen NEGATIVE, Urine Amphetamines Screen POSITIVEH, Urine Methamphetamines Screen POSITIVEH, Urine Benzodiazepines Screen POSITIVEH, Urine Cocaine Screen NEGATIVE, Urine Cannabinoids Screen NEGATIVE 03/27/21 05:31: Glucometer 106 03/27/21 06:25: White Blood Count 10.0, Red Blood Count 3.66L, Hemoglobin 11.3L, Hematocrit 34L, Mean Corpuscular Volume 93, Mean Corpuscular Hemoglobin 31, Mean Corpuscular Hemoglobin Concent 33, Red Cell Distribution Width 12.6, Platelet Count 259, Mean Platelet Volume 11.0, Immature Granulocyte % (Auto) 0, Neutrophils (%) ( Auto) 58, Lymphocytes (%) (Auto) 28, Monocytes (%) (Auto) 6, Eosinophils (%) (Auto) 6, Basophils (%) (Auto) 1, Neutrophils # (Auto) 5.8, Lymphocytes # (Auto) 2.8, Monocytes # (Auto) 0.6, Eosinophils # (Auto) 0.6H, Basophils # (Auto) 0.1, Immature Granulocyte # (Auto) 0.0, Sodium Level 142, Potassium Level 3.9, Chloride Level 110H, Carbon Dioxide Level 22, Anion Gap 10, Blood Urea Nitrogen 14, Creatinine 0.72, Estimat Glomerular Filtration Rate 121, BUN/Creatinine Ra leslee 19, Glucose Level 97, Calcium Level 8.1L, Corrected Calcium 9.0, Total Bilirubin 0.3, Aspartate Amino Transf (AST/SGOT) 34, Alanine Aminotransferase (ALT/SGPT) 26, Alkaline Phosphatase 70, Total Protein 5.4L, Albumin 2.9L Assessment/Plan Assessment/Plan Assessment/Plan Right upper Extremity Cellulitis, with possible abscess Pland - possible packing and possible debridement. He is getting IV ABX, pain control and IV fluids. KOLE FELICIANO DO 03/27/21 1118: Subjective Time Seen by a Provider: 10:25 Subjective/Events-last exam Pt seen just prior to going back to OR. Still has pain. Review of Systems General: Fatigue Pulmonary: No Dyspnea, No Cough Gastrointestinal: No: Nausea, Vomiting Objective Exam General Appearance: No Apparent Distress, Anxious Respiratory: Lungs Clear, Normal Breath Sounds, No Accessory Muscle Use, No Re spiratory Distress Cardiovascular: Regular Rate, Rhythm, No Murmur Extremity: No Calf Tenderness, No Pedal Edema, Other (right arm, erythema is less, still very swollen around circular scab and tender) Assessment/Plan Assessment/Plan Assessment/Plan Right upper Extremity Cellulitis, with possible abscess Plan - I&D possible packing and possible debridement. He is getting IV ABX, pain control and IV fluids. Supervisory-Addendum Brief Verification & Attestation Participated in pt care: history, MDM, physical Personally performed: exam, history, MDM, supervision of care Care discussed with: Medical Student Procedures: n/a Verification and Attestation of Medical Student E/M Service A medical student performed and documented this service. I then reviewed and verified all information documented by the medical student and made modifications to such information, when appropriate. I personally performed a physical exam, medical decision making and then discussed any differences between the notes and made revisions as necessary to create one note. Kole Feliciano , 03/27/21 , 11:18 NAHUN MATTHEWS Mar 27, 2021 08:39 KOLE FELICIANO DO Mar 27, 2021 11:18
[2021-03-27] MEDS: polyethylene glycoL POWDER 17 GM (MIRALAX) PACK PO SCH ×2 (09:00→20:56)
[2021-03-27] MEDS ORDERED: LACTATED RINGERS 1,000 ML IV PRN (10:30)
[2021-03-27] MEDS ORDERED: MIDAZOLAM 2 MG/2 ML (VERSED) VIAL ONE (10:32)
[2021-03-27] MEDS ORDERED: ONDANSETRON 4 MG/2 ML (SDV) Z0FRAN ONE (10:32)
[2021-03-27] MEDS ORDERED: proPOfol 200 MG/20 ML (DIPRIVAN) VIAL IV ONE (10:32)
[2021-03-27] MEDS ORDERED: LIDOCAINE PF 2% 5 ML (XYLOCAINE) VIAL ONE (10:32)
[2021-03-27] MEDS ORDERED: fentaNYL INJ 100 MCG/2 ML AMP ONE (10:32)
[2021-03-27] MEDS ORDERED: LIDOCAINE/EPI 1%-1:100,000 (XYLOCAINE) 20ML ONE (10:49)
--- NOTE | 2021-03-27 11:16 | Progress Note-Post Operative ---
Post-Operative Progess Note Surgeon (s)/Medical Biller Coder (s) Surgeon CONRAD PEDERSEN DO Medical Biller Coder: LELIA Abbott Pre-Operative Diagnosis right arm cellulitis/abscess Post-Operative Diagnosis same Procedure & Operative Findings Date of Procedure 03/27/21 Procedure Performed/Findings I&D with washout and packing Anesthesia Type GET Estimated Blood Loss Estimated blood loss (mL): less than 5ml Specimens/Packing Specimens Removed necrotic tissue wound culture Packin CONRAD PEDERSEN DO Mar 27, 2021 11:16
--- NOTE | 2021-03-27 11:48 | Progress Note - Hospitalist ---
Subjective HPI/CC On Admission Date Seen by Provider: Mar 27, 2021 Time Seen by Provider: 18:00 Chief complaint: Right arm cellulitis with early abscess History of present illness: This is a 40-year-old white male clinic patient of [facility] with diabetes who presents after failing oral antibiotics as an outpatient given to him by the clinic for right arm cellulitis. Patient does have a history of MRSA. Patient does have [id number] diabetes. The right arm has worsened to the point of consulting general surgery in case an incision and drainage will be needed. Subjective/Events-last exam Patient had incision and drainage today by Dr. Feliciano Packing placed Necrotic tissue removed Blood sugars managed with long-acting insulin Pain medication maintained Review of Systems General: Fatigue, Malaise Musculoskeletal: arm pain Focused Exam Lactate Level 03/26/21 13:40: Lactic Acid Level 0.94 Objective Exam Vital Signs Vital Signs Date Time Temp Pulse Resp B/P (MAP) Pulse Ox O2 Delivery O2 Flow Rate FiO2 03/28/21 04:31 36.7 73 18 133/77 (95) 96 Room Air 03/27/21 11:40 2 03/26/21 18:25 21 Capillary Refill : Less Than 3 Seconds General Appearance: No Apparent Distress, WD/WN, Chronically ill Respiratory: Lungs Clear, Normal Breath Sounds Cardiovascular: Regular Rate, Rhythm Neurologic/Psychiatric: Alert, Oriented x3 Results/Procedures Lab Laboratory Tests 03/27/21 06:25 03/28/21 01:05 Patient resulted labs reviewed. Assessment/Plan Assessment and Plan Assess & Plan/Chief Complaint Assessment: Right arm cellulitis failed oral antibiotics status post incision and drainage postop day #0 Type 1 diabetes Plan: Supportive care IV antibiotics Packing ANDRES AVENDANO DO Mar 27, 2021 11:48
--- NOTE | 2021-03-27 13:23 | Anesthesia-General Post-Op ---
General Patient Condition Mental Status/LOC: Same as Preop Cardiovascular: Satisfactory Nausea/Vomiting: Absent Respiratory: Satisfactory Pain: Controlled Complications: Absent Post Op Complications Complications None Follow Up Care/Instructions Patient Instructions None needed. Anesthesia/Patient Condition Patient Condition Patient is doing well, no complaints, stable vital signs, no apparent adverse anesthesia problems. No complications reported per nursing. NEGIN CONN CRNA Mar 27, 2021 13:23
--- NOTE | 2021-03-27 13:27 | OPERATIVE REPORT ---
DATE OF SERVICE: PREOPERATIVE DIAGNOSIS: Right arm cellulitis, abscess. POSTOPERATIVE DIAGNOSIS: Right arm cellulitis, abscess. PROCEDURE: Incision and drainage with packing. SURGEON: Kole Feliciano DO TYPESETTER PERFORATOR OPERATOR: Lauri Bunch, 3. ANESTHESIA: General endotracheal tube. SPECIMEN: Necrotic tissue and wound culture. BLOOD LOSS: Less than 5 mL. FLUIDS: Per anesthesia. POSTOPERATIVE CONDITION: Stable. INDICATION FOR PROCEDURE: The patient is a 40-year-old male who has right arm cellulitis and abscess, it actually got a little bit better yesterday, but still very warm and swollen and shrunk down a little bit. FINDINGS: The patient had a small circular area of necrosis, necrotic tissue and he had a large amount of purulent fluid right along the fascial plane. PROCEDURE NOTE: After informed consent was obtained, the patient was brought to the operating room, placed on the table in the supine position, sterilely prepped and draped in normal fashion. Local lidocaine was used to infiltrate the skin around this necrotic circular area, then made an incision with a #15 blade, carried down through the skin into the subcutaneous tissue. This started out about 3 to 4 inches in length, cut out the necrotic tissue at this circular scab; then had to extend the incision another 2 inches towards the wrist and up towards the elbow to be able to get all of the area open, got out purulent fluid, cultured this and then broke up loculations and opened this up along the fascial plane just above the muscle under the skin. It went laterally at least an inch and half. This area was then irrigated with saline and then elected to pack with half-inch iodoform packing, used Bovie electrocautery to stop some of the bleeding and then packed this. This held the bleeding and then the area was 4 x 4s and a Ben wrap dressing placed. The patient tolerated the procedure. He was transferred to recovery room in stable condition. Sponge, instrument and needle count correct at the end of the case. Job ID: [id number] DocumentID: [id number] Dictated Date: 03/27/2021 11:15:47 Supervisor Beam Department Date: 03/27/2021 13:26:58 Dictated By: KOLE FELICIANO DO [facility]
[2021-03-27] MEDS: ALPRAZolam 0.25 MG (XANAX) TAB PO PRN ×2 (13:30→21:05)
[2021-03-27] MEDS ORDERED: NICOTINE 14 MG (NICODERM) PATCH TD ONE (16:30)
[2021-03-27] MEDS ORDERED: INSU100I34 SQ ×2 (17:31)
[2021-03-27] MEDS ORDERED: PATIENT MAY USE OWN MEDS, ALL MC SCH (17:45)
[2021-03-27] MEDS: ENOXAPARIN 40 MG/0.4 ML (LOVENOX) SYR SC SCH (20:59)
[2021-03-27] MEDS ORDERED: INSULIN DEGLUDEC 20 UNIT SQ SCH (21:00)
[2021-03-27] MEDS: MUPIROCIN 2% OINT 22 GM (BACTROBAN) TUBE NSEACH SCH (21:05)
[2021-03-28] VITALS: BP 111/72
[2021-03-28] MEDS: NS IV 1000 ML 1,000 ML IV SCH ×3 (00:14→18:47)
[2021-03-28] MEDS ORDERED: TROUGH ORDER-PHARMACY XX NR (01:00)
[2021-03-28] MEDS: HYDROcodone/APAP 5 MG/325 MG (LORTAB) TAB PO PRN ×4 (01:11→17:31)
[2021-03-28 01:22] LABS: BASOPHILS # (AUTO) 0.1 10^3/uL (0.0-0.1); BASOPHILS % (AUTO) 1 % (0-10); EOSINOPHILS # (AUTO) 0.5 10^3/uL (0.0-0.3); EOSINOPHILS % (AUTO) 7 % (0-10); HEMATOCRIT 32 % (40-54); HEMOGLOBIN 10.7 g/dL (13.3-17.7); LYMPHOCYTES # (AUTO) 2.7 10^3/uL (1.0-4.0); LYMPHOCYTES % (AUTO) 39 % (12-44); MEAN CORPUSCULAR HEMOGLOBIN 31 pg (25-34); MEAN CORPUSCULAR HGB CONC 33 g/dL (32-36); MEAN CORPUSCULAR VOLUME 93 fL (80-99); MONOCYTES # (AUTO) 0.4 10^3/uL (0.0-1.0); MONOCYTES % (AUTO) 5 % (0-12); NEUTROPHILS # (AUTO) 3.3 10^3/uL (1.8-7.8); NEUTROPHILS % (AUTO) 48 % (42-75); PLATELET COUNT 280 10^3/uL (130-400); WHITE BLOOD COUNT 6.9 10^3/uL (4.3-11.0)
[2021-03-28 01:26] LABS: ALBUMIN 2.6 GM/DL (3.2-4.5)
[2021-03-28 01:27] LABS: POTASSIUM 4.4 MMOL/L (3.6-5.0)
[2021-03-28 01:28] LABS: CALCIUM 7.8 MG/DL (8.5-10.1)
[2021-03-28 01:29] LABS: TOTAL PROTEIN 4.9 GM/DL (6.4-8.2)
[2021-03-28 01:31] LABS: BILIRUBIN,TOTAL 0.1 MG/DL (0.1-1.0)
[2021-03-28 01:32] LABS: CREATININE SERUM 0.81 MG/DL (0.60-1.30)
[2021-03-28] MEDS: VANCOMYCIN 1 GM/NS 250 ML IVPB IV SCH ×6 (01:50→17:31)
[2021-03-28] MEDS: morphine INJ 10 MG/ML 1ML (SYR OR VIAL) IVP PRN ×2 (03:00→09:54)
[2021-03-28 04:31] VITALS: BP 133/77
[2021-03-28] MEDS: PIPERACILLIN/TAZO 4.5 GM/NS 100 ML IV SCH ×6 (04:38→19:43)
[2021-03-28] MEDS ORDERED: inSUlin ASPART (NovoLOG) 1 UNIT/0.01 ML (CHARGE PER UNIT) SQ SCH (07:00)
[2021-03-28] MEDS: inSUlin ASPART (NovoLOG) 1 UNIT/0.01 ML (CHARGE PER UNIT) SC SCH ×4 (07:23→20:53)
[2021-03-28] MEDS ORDERED: BASAGLAR SQ SCH (07:28)
[2021-03-28 07:45] VITALS: BP 138/78
[2021-03-28] MEDS: NICOTINE 14 MG (NICODERM) PATCH TD SCH (09:53)
[2021-03-28] MEDS: PATCH REMOVAL TP SCH (09:53)
[2021-03-28] MEDS: inSUlin ASPART (NovoLOG) 1 UNIT/0.01 ML (CHARGE PER UNIT) SQ SCH ×3 (09:54→17:31)
[2021-03-28] MEDS: BASAGLAR SQ SCH ×2 (09:54→17:28)
[2021-03-28] MEDS: polyethylene glycoL POWDER 17 GM (MIRALAX) PACK PO SCH ×2 (09:55→19:44)
[2021-03-28] MEDS: MUPIROCIN 2% OINT 22 GM (BACTROBAN) TUBE NSEACH SCH ×2 (09:55→19:43)
--- NOTE | 2021-03-28 10:12 | Progress Note - Surgery ---
NAHUN MATTHEWS 03/28/21 1012: Subjective Date Seen by a Provider: Mar 28, 2021 Time Seen by a Provider: 09:49 Subjective/Events-last exam Pt recovering from drainage of large abcess wound in right arm. Lab confirmed MRSA. Wound continues to drain yellow serous fluid. Proximal and distal swelling and erythema absent, distal neurovascular status intact. Pt is resting in bed comfortably Review of Systems General: No Chills, No Night Sweats, No Fatigue, No Malaise HEENT: No Head Aches, No Visual Changes, No Eye Pain, No Ear Pain Pulmonary: No Dyspnea, No Cough, No Pleuritic Chest Pain Cardiovascular: No: Chest Pain, Palpitations, Orthopnea, Paroxysmal Noc. Dyspnea Gastrointestinal: No: Nausea, Vomiting, Abdominal Pain, Diarrhea, Constipation, Melena, Hematochezia Genitourinary: No Dysuria, No Frequency, No Incontinence, No Hematuria, No Retention Musculoskeletal: arm pain; No: neck pain, shoulder pain, back pain, hand pain, leg pain, foot pain Neurological: No: Weakness, Numbness, Incoordination, Change in speech, Confusion Focused Exam Lactate Level 03/26/21 13:40: Lactic Acid Level 0.94 Objective Exam Vital Signs Date Time Temp Pulse Resp B/P (MAP) Pulse Ox O2 Delivery O2 Flow Rate FiO2 03/28/21 07:45 36.7 67 18 138/78 (98) 95 Room Air 03/28/21 04:31 36.7 73 18 133/77 (95) 96 Room Air 03/28/21 00:00 36.9 75 20 111/72 (85) 95 Room Air 03/27/21 20:00 Room Air 03/27/21 20:00 36.5 72 20 123/70 (87) 98 Room Air 03/27/21 16:00 36.7 81 20 124/66 (85) 98 Room Air 03/27/21 12:06 36.3 79 18 107/71 (83) 94 Room Air 03/27/21 12:00 Room Air 03/27/21 11:57 36.9 17 120/65 (83) 96 Room Air 03/27/21 11:50 18 113/69 (84) 97 Room Air 03/27/21 11:40 OxyMask 2 03/27/21 11:40 17 99/58 (72) 100 OxyMask 2 03/27/21 11:30 17 110/63 (79) 100 OxyMask 4 03/27/21 11:20 17 102/56 (71) 100 OxyMask 6 03/27/21 11:15 OxyMask 8 03/27/21 11:15 36.5 12 96/55 (69) 100 OxyMask 8 I & O 03/28/21 07:00 Intake Total 3080 ml Balance 3080 ml Capillary Refill : Less Than 3 Seconds General Appearance: No Apparent Distress, WD/WN HEENT: PERRL/EOMI, Pharynx Normal, Moist Mucous Membranes Neck: Full Range of Motion, Normal Inspection, Non Tender, Supple Respiratory: Lungs Clear, Normal Breath Sounds, No Accessory Muscle Use, No Respiratory Distress Cardiovascular: Regular Rate, Rhythm, No Edema, No Murmur, Normal Peripheral Pulses Peripheral Pulses: 2+ Radial Pulses (R), 2+ Radial Pulses (L) Gastrointestinal: normal bowel sounds, non tender, soft, no organomegaly, no pulsatile mass Extremity: Normal Capillary Refill, Normal Range of Motion, No Calf Tenderness, No Pedal Edema, Other (right arm, erythema is less, above and below the surgical site, good nerurovascular stats distally) Neurologic/Psychiatric: Alert, Oriented x3, No Motor/Sensory Deficits, Normal 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, 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 Skin: Normal Color, Warm/Dry, Rash (warm and swollen right arm ) Lymphatic: No Adenopathy Results Lab Laboratory Tests 03/27/21 12:05: Glucometer 82 03/27/21 16:15: Glucometer 267H 03/27/21 20:11: Glucometer 122H 03/28/21 01:05: White Blood Count 6.9, Red Blood Count 3.49L, Hemoglobin 10.7L, Hematocrit 32L, Mean Corpuscular Volume 93, Mean Corpuscular Hemoglobin 31, Mean Corpuscular Hemoglobin Concent 33, Red Cell Distribution Width 12.7, Platelet Count 280, Mean Platelet Volume 11.0, Immature Granulocyte % (Auto) 0, Neutrophils (%) (Auto) 48, Lymphocytes (%) (Auto) 39, Monocytes (%) (Auto) 5, Eosinophils (%) (Auto) 7, Basophils (%) (Auto) 1, Neutrophils # (Auto) 3.3, Lymphocytes # (Auto) 2.7, Monocytes # (Auto) 0.4, Eosinophils # (Auto) 0.5H, Basophils # (Auto) 0.1, Immature Granulocyte # (Auto) 0.0, Sodium Level 136, Potassium Level 4.4, Chloride Level 103, Carbon Dioxide Level 24, Anion Gap 9, Blood Urea Nitrogen 13, Creatinine 0.81, Estimat Glomerular Filtration Rate 106, BUN/Creatinine Ratio 16, Glucose Level 236H, Calcium Level 7.8L, Corrected Calcium 8.9, Total Bilirubin 0.1, Aspartate Amino Transf (AST/SGOT) 46H, Alanine Aminotransferase (ALT/SGPT) 34, Alkaline Phosphatase 73, Total Protein 4.9L, Albumin 2.6L, Vancomycin Level Trough 6.5L 03/28/21 05:31: Glucometer 218H Microbiology 03/27/21 Gram Stain - Final, Resulted 03/27/21 Anaerobic Culture, Resulted Pending 03/27/21 Surgical Culture - Preliminary, Resulted Staphylococcus aureus 03/27/21 Fungal Culture 1, Resulted Pending 03/26/21 MRSA Screen - Final, Complete 03/26/21 Blood Culture - Preliminary, Resulted No growth Assessment/Plan Assessment/Plan Assessment/Plan Right upper Extremity Cellulitis, with possible abscess Plan - IV ABX, pain control and IV fluids, monitor surgical site for healing. KOLE FELICIANO DO 03/28/21 1208: Subjective Time Seen by a Provider: 11:19 Subjective/Events-last exam Pt seen and examined, laying in bed comfortably but his blood sugar has dropped. Complaining of pain, but about the same or less than yesterday. Review of Systems General: Fatigue, Malaise Pulmonary: No Dyspnea, No Cough Cardiovascular: No: Chest Pain, Palpitations Gastrointestinal: No: Nausea, Vomiting, Abdominal Pain Objective Exam General Appearance: WD/WN, Mild Distress HEENT: PERRL/EOMI Respiratory: Lungs Clear, Normal Breath Sounds, No Accessory Muscle Use, No Respiratory Distress Cardiovascular: Regular Rate, Rhythm, No Murmur Gastrointestinal: non tender, soft, no organomegaly Extremity: Other (right arm, erythema is less, above and below the surgical site, good nerurovascular stats distally) Assessment/Plan Assessment/Plan Assessment/Plan S/P I&D Right upper Extremity abscess Plan - IV ABX, pain control and IV fluids, change dressing tomorrow with change of packing. Supervisory-Addendum Brief Verification & Attestation Participated in pt care: history, MDM, physical Personally performed: exam, history, MDM, supervision of care Care discussed with: Medical Student Procedures: n/a Verification and Attestation of Medical Student E/M Service A medical student performed and documented this service. I then reviewed and verified all information documented by the medical student and made modifications to such information, when appropriate. I personally performed a physical exam, medical decision making and then discussed any differences between the notes and made revisions as necessary to create one note. Kole Feliciano , 03/28/21 , 12:11 NAHUN MATTHEWS Mar 28, 2021 10:12 KOLE FELICIANO DO Mar 28, 2021 12:08
[2021-03-28 11:45] VITALS: BP 122/71
--- NOTE | 2021-03-28 12:15 | Progress Note - Hospitalist ---
Subjective HPI/CC On Admission Date Seen by Provider: Mar 28, 2021 Time Seen by Provider: 10:00 Chief complaint: Right arm cellulitis with early abscess History of present illness: This is a 40-year-old white male clinic patient of [facility] with diabetes who presents after failing oral antibiotics as an outpatient given to him by the clinic for right arm cellulitis. Patient does have a history of MRSA. Patient does have [id number] diabetes. The right arm has worsened to the point of consulting general surgery in case an incision and drainage will be needed. Subjective/Events-last exam Patient doing a lot better Pain is well controlled Blood sugars labile Tolerating antibiotics Packing will be removed tomorrow Likely discharge soon Review of Systems Musculoskeletal: arm pain Focused Exam Lactate Level 03/26/21 13:40: Lactic Acid Level 0.94 Objective Exam Vital Signs Vital Signs Date Time Temp Pulse Resp B/P (MAP) Pulse Ox O2 Delivery O2 Flow Rate FiO2 03/28/21 19:41 36.3 75 18 120/72 (88) 98 Room Air 03/27/21 11:40 2 03/26/21 18:25 21 Capillary Refill : Less Than 3 Seconds General Appearance: No Apparent Distress, WD/WN, Chronically ill Respiratory: Lungs Clear, Normal Breath Sounds Cardiovascular: Regular Rate, Rhythm Neurologic/Psychiatric: Alert, Oriented x3 Results/Procedures Lab Laboratory Tests 03/28/21 01:05 Patient resulted labs reviewed. Assessment/Plan Assessment and Plan Assess & Plan/Chief Complaint Assessment: Right arm cellulitis failed oral antibiotics status post incision and drainage postop day #0 Type 1 diabetes Plan: Supportive care IV antibiotics Packing 03/28/2021: Packing change tomorrow Pain control IV antibiotics ANDRES AVENDANO DO Mar 28, 2021 12:15
[2021-03-28] MEDS: ALPRAZolam 0.25 MG (XANAX) TAB PO PRN ×2 (13:40→22:02)
[2021-03-28] MEDS: IBUPROFEN 600 MG (MOTRIN) TAB PO SCH ×2 (13:41→19:42)
[2021-03-28] MEDS: morphine INJ 4 MG/ML 1 ML (VIAL/SYRINGE) IV PRN ×3 (13:41→22:03)
[2021-03-28 16:00] VITALS: BP 118/72
[2021-03-28 19:41] VITALS: BP 120/72
[2021-03-28] MEDS: ENOXAPARIN 40 MG/0.4 ML (LOVENOX) SYR SC SCH (19:44)
[2021-03-29 00:21] VITALS: BP 122/74
[2021-03-29] MEDS: VANCOMYCIN 1 GM/NS 250 ML IVPB IV SCH ×6 (02:08→18:53)
[2021-03-29] MEDS: HYDROcodone/APAP 5 MG/325 MG (LORTAB) TAB PO PRN ×3 (02:08→20:05)
[2021-03-29] MEDS: IBUPROFEN 600 MG (MOTRIN) TAB PO SCH ×4 (02:08→20:02)
[2021-03-29 04:06] VITALS: BP 125/74
[2021-03-29] MEDS: NS IV 1000 ML 1,000 ML IV SCH ×2 (05:10→15:29)
[2021-03-29 05:37] LABS: BASOPHILS # (AUTO) 0.1 10^3/uL (0.0-0.1); BASOPHILS % (AUTO) 1 % (0-10); EOSINOPHILS # (AUTO) 0.5 10^3/uL (0.0-0.3); EOSINOPHILS % (AUTO) 6 % (0-10); HEMATOCRIT 35 % (40-54); HEMOGLOBIN 11.3 g/dL (13.3-17.7); LYMPHOCYTES # (AUTO) 2.9 10^3/uL (1.0-4.0); LYMPHOCYTES % (AUTO) 39 % (12-44); MEAN CORPUSCULAR HEMOGLOBIN 31 pg (25-34); MEAN CORPUSCULAR HGB CONC 33 g/dL (32-36); MEAN CORPUSCULAR VOLUME 94 fL (80-99); MEAN PLATELET VOLUME 10.9 fL (9.0-12.2); MONOCYTES # (AUTO) 0.5 10^3/uL (0.0-1.0); MONOCYTES % (AUTO) 6 % (0-12); NEUTROPHILS # (AUTO) 3.6 10^3/uL (1.8-7.8); NEUTROPHILS % (AUTO) 48 % (42-75); PLATELET COUNT 295 10^3/uL (130-400); WHITE BLOOD COUNT 7.5 10^3/uL (4.3-11.0)
[2021-03-29] MEDS: PIPERACILLIN/TAZO 4.5 GM/NS 100 ML IV SCH ×6 (05:43→20:10)
[2021-03-29 05:56] LABS: ALBUMIN 2.7 GM/DL (3.2-4.5); CHLORIDE 105 MMOL/L (98-107); POTASSIUM 5.1 MMOL/L (3.6-5.0); SODIUM 137 MMOL/L (135-145)
[2021-03-29 05:59] LABS: GLUCOSE 220 MG/DL (70-105); TOTAL PROTEIN 5.4 GM/DL (6.4-8.2)
[2021-03-29 06:00] LABS: BILIRUBIN,TOTAL < 0.1 MG/DL (0.1-1.0); CARBON DIOXIDE 23 MMOL/L (21-32)
[2021-03-29 06:02] LABS: ALKALINE PHOSPHATASE 71 U/L (40-136); GFR ESTIMATED 107
[2021-03-29 06:03] LABS: BUN/CREATININE RATIO 14
[2021-03-29 06:05] LABS: ALANINE AMINOTRANSFERASE 29 U/L (0-55)
[2021-03-29] MEDS: inSUlin ASPART (NovoLOG) 1 UNIT/0.01 ML (CHARGE PER UNIT) SC SCH ×4 (06:34→20:30)
--- NOTE | 2021-03-29 07:35 | Progress Note - Surgery ---
NAHUN MATTHEWS 03/29/21 0734: Subjective Date Seen by a Provider: Mar 29, 2021 Time Seen by a Provider: 07:02 Subjective/Events-last exam Pt recovering from drainage of large abscess wound in right arm. Lab confirmed MRSA. Proximal and distal swelling and erythema absent, distal neurovascular status intact. Pt is resting in bed comfortably Review of Systems General: No Chills, No Night Sweats, No Fatigue, No Malaise; Appetite HEENT: Head Aches; No Visual Changes, No Eye Pain, No Ear Pain, No Dysphasia, No Sinus Congestion, No Post Nasal Drip, No Sore Throat Pulmonary: No Dyspnea, No Cough, No Pleuritic Chest Pain Cardiovascular: No: Chest Pain, Palpitations, Orthopnea, Paroxysmal Noc. Dyspnea, Edema, Lt Headedness Gastrointestinal: No: Nausea, Vomiting, Abdominal Pain, Diarrhea, Constipation, Melena, Hematochezia Genitourinary: No Dysuria, No Frequency, No Incontinence, No Hematuria, No Retention Musculoskeletal: arm pain; No: neck pain, shoulder pain, back pain, hand pain, leg pain, foot pain Neurological: No: Weakness, Numbness, Incoordination, Change in speech, Confusion, Seizures Focused Exam Lactate Level 03/26/21 13:40: Lactic Acid Level 0.94 Objective Exam Vital Signs Date Time Temp Pulse Resp B/P (MAP) Pulse Ox O2 Delivery O2 Flow Rate FiO2 03/29/21 04:06 36.4 73 17 125/74 (91) 97 Room Air 03/29/21 00:21 36.6 77 16 122/74 (90) 96 Room Air 03/28/21 21:34 Room Air 03/28/21 20:00 Room Air 03/28/21 19:41 36.3 75 18 120/72 (88) 98 Room Air 03/28/21 16:00 36.5 72 20 118/72 (87) 98 Room Air 03/28/21 11:45 36.4 77 18 122/71 (88) 95 Simple Mask 03/28/21 10:53 Room Air 03/28/21 09:00 Room Air 03/28/21 07:45 36.7 67 18 138/78 (98) 95 Room Air I & O 03/29/21 07:00 Intake Total 4030 ml Balance 4030 ml Capillary Refill : Less Than 3 Seconds General Appearance: No Apparent Distress, WD/WN HEENT: PERRL/EOMI, Pharynx Normal, Moist Mucous Membranes Neck: Full Range of Motion, Normal Inspection, Non Tender, Supple Respiratory: Lungs Clear, Normal Breath Sounds, No Accessory Muscle Use, No Respiratory Distress Cardiovascular: Regular Rate, Rhythm, No Edema, No Gallop, No Murmur, Normal Peripheral Pulses Peripheral Pulses: 2+ Radial Pulses (R), 2+ Radial Pulses (L) Gastrointestinal: normal bowel sounds, non tender, soft, no organomegaly Extremity: Normal Capillary Refill, Normal Range of Motion, Non Tender, No Calf Tenderness, No Pedal Edema, Other (right arm, erythema is less, above and below the surgical site, good nerurovascular stats distally) Neurologic/Psychiatric: Alert, Oriented x3, No Motor/Sensory Deficits, Normal 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, 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 (cervical / axilary) Skin: Normal Color, Warm/Dry, Rash (warm and swollen right arm ) Lymphatic: No Adenopathy Results Lab Laboratory Tests 03/28/21 11:44: Glucometer 51*L 03/28/21 12:24: Glucometer 89 03/28/21 15:49: Glucometer 243H 03/28/21 20:15: Glucometer 106 03/29/21 05:23: White Blood Count 7.5, Red Blood Count 3.70L, Hemoglobin 11.3L, Hematocrit 35L, Mean Corpuscular Volume 94, Mean Corpuscular Hemoglobin 31, Mean Corpuscular Hemoglobin Concent 33, Red Cell Distribution Width 12.2, Platelet Count 295, Mean Platelet Volume 10.9, Immature Granulocyte % (Auto) 0, Neutrophils (%) (Auto) 48, Lymphocytes (%) (Auto) 39, Monocytes (%) (Auto) 6, Eosinophils (%) ( Auto) 6, Basophils (%) (Auto) 1, Neutrophils # (Auto) 3.6, Lymphocytes # (Auto) 2.9, Monocytes # (Auto) 0.5, Eosinophils # (Auto) 0.5H, Basophils # (Auto) 0.1, Immature Granulocyte # (Auto) 0.0, Sodium Level 137, Potassium Level 5.1H, Chloride Level 105, Carbon Dioxide Level 23, Anion Gap 9, Blood Urea Nitrogen 11, Creatinine 0.80, Estimat Glomerular Filtration Rate 107, BUN/Creatinine Ratio 14, Glucose Level 220H, Calcium Level 8.0L, Corrected Calcium 9.0, Total Bilirubin < 0.1L, Aspartate Amino Transf (AST/SGOT) 28, Alanine Aminotransferase (ALT/SGPT) 29, Alkaline Phosphatase 71, Total Protein 5.4L, Albumin 2.7L 03/29/21 06:26: Glucometer 196H Microbiology 03/27/21 Gram Stain - Final, Resulted 03/27/21 Anaerobic Culture, Resulted Pending 03/27/21 Surgical Culture - Preliminary, Resulted Staphylococcus aureus 03/27/21 Fungal Culture 1, Resulted Pending 03/26/21 MRSA Screen - Final, Complete 03/26/21 Blood Culture - Preliminary, Resulted No growth Assessment/Plan Assessment/Plan Assessment/Plan S/P I&D Right upper Extremity abscess Plan - IV ABX, pain control and IV fluids, change dressing later today with change of packing. KOLE FELICIANO DO 03/29/21 1211: Subjective Time Seen by a Provider: 08:51 Subjective/Events-last exam Pt seen and examined, no new complaints. Review of Systems General: No Chills, No Night Sweats Pulmonary: No Dyspnea, No Cough Cardiovascular: No: Chest Pain, Palpitations Gastrointestinal: No: Nausea, Vomiting, Abdominal Pain Objective Exam General Appearance: No Apparent Distress, WD/WN HEENT: Moist Mucous Membranes Respiratory: Lungs Clear, Normal Breath Sounds, No Accessory Muscle Use Cardiovascular: Regular Rate, Rhythm, No Murmur Extremity: Other (right arm, erythema is less, above and below the surgical site, good nerurovascular stats distally. Changed dressing and no necrotic tissue seen) Assessment/Plan Assessment/Plan Assessment/Plan S/P I&D Right upper Extremity abscess Plan - can switch to oral ABX, pain control and IV fluids, packing removed and replaced. Ok to go home when ok with medicine. Would send home on Bactrim, microbiology showed MRSA sensitive to Bactrim; probably didn't work as outpt because of abscess. Supervisory-Addendum Brief Verification & Attestation Participated in pt care: history, MDM, physical Personally performed: exam, history, MDM, supervision of care Care discussed with: Medical Student Procedures: n/a Verification and Attestation of Medical Student E/M Service A medical student performed and documented this service. I then reviewed and verified all information documented by the medical student and made modifications to such information, when appropriate. I personally performed a physical exam, medical decision making and then discussed any differences between the notes and made revisions as necessary to create one note. Kole Feliciano , 03/29/21 , 12:11 NAHUN MATTHEWS Mar 29, 2021 07:34 KOLE FELICIANO DO Mar 29, 2021 12:11
[2021-03-29 07:52] VITALS: BP 143/91
[2021-03-29] MEDS: morphine INJ 4 MG/ML 1 ML (VIAL/SYRINGE) IV PRN (08:47)
[2021-03-29] MEDS: polyethylene glycoL POWDER 17 GM (MIRALAX) PACK PO SCH ×2 (09:20→20:07)
[2021-03-29] MEDS: NICOTINE 14 MG (NICODERM) PATCH TD SCH (09:21)
[2021-03-29] MEDS: PATCH REMOVAL TP SCH (09:21)
[2021-03-29] MEDS: MUPIROCIN 2% OINT 22 GM (BACTROBAN) TUBE NSEACH SCH ×2 (09:22→20:03)
[2021-03-29] MEDS: BASAGLAR SQ SCH ×2 (09:59→17:15)
[2021-03-29] MEDS: inSUlin ASPART (NovoLOG) 1 UNIT/0.01 ML (CHARGE PER UNIT) SQ SCH ×3 (10:00→17:16)
[2021-03-29] MEDS ORDERED: INSU100I14 SQ (10:08)
[2021-03-29] MEDS ORDERED: INSU100I34 SQ ×2 (10:08)
--- NOTE | 2021-03-29 10:44 | Progress Note - Hospitalist ---
Subjective HPI/CC On Admission Date Seen by Provider: Mar 29, 2021 Chief complaint: Right arm cellulitis with early abscess History of present illness: This is a 40-year-old white male clinic patient of [facility] with diabetes who presents after failing oral antibiotics as an outpatient given to him by the clinic for right arm cellulitis. Patient does have a history of MRSA. Patient does have [id number] diabetes. The right arm has worsened to the point of consulting general surgery in case an incision and drainage will be needed. Focused Exam Lactate Level 03/26/21 13:40: Lactic Acid Level 0.94 Objective Exam Vital Signs Vital Signs Date Time Temp Pulse Resp B/P (MAP) Pulse Ox O2 Delivery O2 Flow Rate FiO2 03/29/21 09:00 Room Air 03/29/21 07:52 36.1 71 18 143/91 (108) 95 03/27/21 11:40 2 03/26/21 18:25 21 Capillary Refill : Less Than 3 Seconds Results/Procedures Lab Laboratory Tests 03/29/21 05:23 Patient resulted labs reviewed. Assessment/Plan Assessment and Plan Assess & Plan/Chief Complaint Assessment: Right arm cellulitis failed oral antibiotics status post incision and drainage postop day #0 Type 1 diabetes Plan: Supportive care IV antibiotics Packing 03/28/2021: Packing change tomorrow Pain control IV antibiotics ANDRES AVENDANO DO Mar 29, 2021 10:44
[2021-03-29] MEDS ORDERED: ACHD5005 PO (11:36)
[2021-03-29] MEDS ORDERED: LINE600T12 PO (11:36)
--- NOTE | 2021-03-29 11:37 | Discharge Summary ---
Discharge Summary Hospital Course Was the Problem List Reviewed?: Yes Problems/Dx: (1) Cellulitis Status: Acute Qualifiers: Qualified Codes: L03.113 - Cellulitis of right upper limb (2) Type 1 diabetes mellitus Status: Acute Qualifiers: Qualified Codes: E10.628 - Type 1 diabetes mellitus with other skin complications (3) Methamphetamine use Status: Acute Hospital Course Date of Admission: Mar 26, 2021 at 14:34 Admission Diagnosis : Family Physician/Provider: [facility] [place] Date of Discharge: 03/29/21 Discharge Diagnosis: Right arm cellulitis with abscess formation status post incision and drainage, methamphetamine use, diabetes type 1 Hospital Course: Short course after admitted for cellulitis and abscess formation IV antibiotics initiated along with insulin regimen status post incision and drainage by Dr. Feliciano much improved change packing and patient was deemed stable for discharge. Labs and Pending Lab Test: Laboratory Tests 03/28/21 11:44: Glucometer 51*L 03/28/21 12:24: Glucometer 89 03/28/21 15:49: Glucometer 243H 03/28/21 20:15: Glucometer 106 03/29/21 05:23: White Blood Count 7.5, Red Blood Count 3.70L, Hemoglobin 11.3L, Hematocrit 35L, Mean Corpuscular Volume 94, Mean Corpuscular Hemoglobin 31, Mean Corpuscular Hemoglobin Concent 33, Red Cell Distribution Width 12.2, Platelet Count 295, Mean Platelet Volume 10.9, Immature Granulocyte % (Auto) 0, Neutrophils (%) (Auto) 48, Lymphocytes (%) (Auto) 39, Monocytes (%) (Auto) 6, Eosinophils (%) ( Auto) 6, Basophils (%) (Auto) 1, Neutrophils # (Auto) 3.6, Lymphocytes # (Auto) 2.9, Monocytes # (Auto) 0.5, Eosinophils # (Auto) 0.5H, Basophils # (Auto) 0.1, Immature Granulocyte # (Auto) 0.0, Sodium Level 137, Potassium Level 5.1H, Chloride Level 105, Carbon Dioxide Level 23, Anion Gap 9, Blood Urea Nitrogen 11, Creatinine 0.80, Estimat Glomerular Filtration Rate 107, BUN/Creatinine Ratio 14, Glucose Level 220H, Calcium Level 8.0L, Corrected Calcium 9.0, Total Bilirubin < 0.1L, Aspartate Amino Transf (AST/SGOT) 28, Alanine Aminotransferase (ALT/SGPT) 29, Alkaline Phosphatase 71, Total Protein 5.4L, Albumin 2.7L 03/29/21 06:26: Glucometer 196H 03/29/21 09:56: Glucometer 177H Microbiology 03/27/21 Gram Stain - Final, Resulted 03/27/21 Anaerobic Culture, Resulted Pending 03/27/21 Surgical Culture - Preliminary, Resulted Staphylococcus aureus 03/27/21 Fungal Culture 1, Resulted Pending 03/26/21 MRSA Screen - Final, Complete 03/26/21 Blood Culture - Preliminary, Resulted No growth Home Meds Active Zyvox (Linezolid) 600 Mg Tablet 600 Mg PO BID HYDROcodone/APAP 5 MG/325 MG TAB (Acetaminophen/Hydrocodone Bitart) 1 Tab Tab 1 Ea PO Q4H PRN Reported Novolog Flexpen (Insulin Aspart) 300 Units/3 Ml Solution 7 Units SQ AC Basaglar Kwikpen U-100 (Insulin Glargine,Hum.rec.anlog) 100 Unit/1 Ml Insuln.pen 20 Unit SQ HS Basaglar Kwikpen U-100 (Insulin Glargine,Hum.rec.anlog) 100 Unit/1 Ml Insuln.pen 25 Unit SQ DAILY Assessment/Pt Instructions PCP in 1 week Discharge Planning: <30 minutes discharge planning Discharge Instructions Discharge Diet: ADA Diet Discharge Physical Examination Vital Signs Vital Signs Date Time Temp Pulse Resp B/P (MAP) Pulse Ox O2 Delivery O2 Flow Rate FiO2 03/29/21 09:00 Room Air 03/29/21 07:52 36.1 71 18 143/91 (108) 95 03/27/21 11:40 2 03/26/21 18:25 21 General Appearance: No Apparent Distress, WD/WN Allergies: Coded Allergies: No Known Drug Allergies (Unverified , 12/02/13) Discharge Summary Date of Admission Mar 26, 2021 at 14:34 Date of Discharge Discharge Date: Mar 29, 2021 Admission Diagnosis Assessment: Right arm cellulitis with early abscess formation failed oral antibiotics Diabetes mellitus Hepatitis Mental illness Plan: IV antibiotics General surgery consultation Lovenox Insulin Discharge Diagnosis Assessment: Right arm cellulitis failed oral antibiotics status post incision and drainage postop day #0 Type 1 diabetes Plan: Supportive care IV antibiotics Packing 03/28/2021: Packing change tomorrow Pain control IV antibiotics ANDRES AVENDANO DO Mar 29, 2021 11:37
[2021-03-29 11:44] VITALS: BP 138/81
[2021-03-29] MEDS: ALPRAZolam 0.25 MG (XANAX) TAB PO PRN (15:29)
[2021-03-29 16:00] VITALS: BP 148/88
[2021-03-29] MEDS ORDERED: TROUGH ORDER-PHARMACY XX NR (17:00)
[2021-03-29 20:00] VITALS: BP 123/68
[2021-03-29] MEDS: ENOXAPARIN 40 MG/0.4 ML (LOVENOX) SYR SC SCH (20:02)
[2021-03-30 00:24] VITALS: BP 126/68
[2021-03-30] MEDS: VANCOMYCIN 1 GM/NS 250 ML IVPB IV SCH ×4 (02:11→10:44)
[2021-03-30] MEDS: IBUPROFEN 600 MG (MOTRIN) TAB PO SCH ×2 (02:11→09:14)
[2021-03-30] MEDS: NS IV 1000 ML 1,000 ML IV SCH ×2 (02:22→04:25)
[2021-03-30] MEDS: PIPERACILLIN/TAZO 4.5 GM/NS 100 ML IV SCH ×2 (04:18)
[2021-03-30 04:28] VITALS: BP 132/78
[2021-03-30 06:13] LABS: BASOPHILS # (AUTO) 0.1 10^3/uL (0.0-0.1); BASOPHILS % (AUTO) 1 % (0-10); EOSINOPHILS # (AUTO) 0.6 10^3/uL (0.0-0.3); EOSINOPHILS % (AUTO) 9 % (0-10); HEMATOCRIT 36 % (40-54); HEMOGLOBIN 12.3 g/dL (13.3-17.7); LYMPHOCYTES # (AUTO) 2.5 10^3/uL (1.0-4.0); LYMPHOCYTES % (AUTO) 39 % (12-44); MEAN CORPUSCULAR HEMOGLOBIN 32 pg (25-34); MEAN CORPUSCULAR HGB CONC 34 g/dL (32-36); MEAN CORPUSCULAR VOLUME 93 fL (80-99); MEAN PLATELET VOLUME 10.7 fL (9.0-12.2); MONOCYTES # (AUTO) 0.5 10^3/uL (0.0-1.0); MONOCYTES % (AUTO) 7 % (0-12); NEUTROPHILS # (AUTO) 2.9 10^3/uL (1.8-7.8); NEUTROPHILS % (AUTO) 44 % (42-75); PLATELET COUNT 361 10^3/uL (130-400); WHITE BLOOD COUNT 6.5 10^3/uL (4.3-11.0)
[2021-03-30] MEDS: inSUlin ASPART (NovoLOG) 1 UNIT/0.01 ML (CHARGE PER UNIT) SC SCH ×2 (06:16→11:47)
[2021-03-30] MEDS: BASAGLAR SQ SCH (06:17)
[2021-03-30] MEDS: inSUlin ASPART (NovoLOG) 1 UNIT/0.01 ML (CHARGE PER UNIT) SQ SCH ×2 (06:17→11:47)
[2021-03-30 06:23] LABS: ALBUMIN 2.8 GM/DL (3.2-4.5)
[2021-03-30] MEDS: HYDROcodone/APAP 5 MG/325 MG (LORTAB) TAB PO PRN ×2 (06:23→11:46)
[2021-03-30 06:24] LABS: POTASSIUM 4.3 MMOL/L (3.6-5.0)
[2021-03-30 06:25] LABS: CALCIUM 8.5 MG/DL (8.5-10.1)
[2021-03-30 06:26] LABS: TOTAL PROTEIN 5.7 GM/DL (6.4-8.2)
[2021-03-30 06:28] LABS: BILIRUBIN,TOTAL 0.2 MG/DL (0.1-1.0)
[2021-03-30 06:29] LABS: CREATININE SERUM 0.77 MG/DL (0.60-1.30)
[2021-03-30 08:00] VITALS: BP 125/69
--- NOTE | 2021-03-30 08:07 | Progress Note - Surgery ---
NAHUN MATTHEWS 03/30/21 0807: Subjective Date Seen by a Provider: Mar 30, 2021 Time Seen by a Provider: 07:19 Subjective/Events-last exam Pt recovering from drainage of large abscess wound in right arm. Lab confirmed MRSA. Proximal and distal swelling and erythema absent, distal neurovascular status intact. Pt is resting in bed comfortably, says he would like to go home. Review of Systems General: No Chills, No Night Sweats, No Fatigue, No Malaise; Appetite HEENT: No Head Aches, No Visual Changes, No Eye Pain, No Ear Pain, No Dysphasia, No Sinus Congestion, No Post Nasal Drip, No Sore Throat Pulmonary: No Dyspnea, No Cough, No Pleuritic Chest Pain Cardiovascular: No: Chest Pain, Palpitations, Orthopnea, Paroxysmal Noc. Dyspnea, Edema, Lt Headedness Gastrointestinal: No: Nausea, Vomiting, Abdominal Pain, Diarrhea, Constipation, Melena, Hematochezia Genitourinary: No Dysuria, No Frequency, No Incontinence, No Hematuria, No Retention Musculoskeletal: arm pain; No: neck pain, shoulder pain, back pain, hand pain, leg pain, foot pain Neurological: No: Weakness, Numbness, Incoordination, Change in speech, Confusion, Seizures Objective Exam Vital Signs Date Time Temp Pulse Resp B/P (MAP) Pulse Ox O2 Delivery O2 Flow Rate FiO2 03/30/21 04:28 37.0 71 18 132/78 (96) 99 Room Air 03/30/21 00:24 36.3 70 16 126/68 (87) 98 Room Air 03/29/21 20:02 Room Air 03/29/21 20:00 36.6 93 20 123/68 (86) 99 Room Air 03/29/21 16:00 36.2 73 18 148/88 (108) 98 Room Air 03/29/21 11:44 36.7 73 18 138/81 (100) 98 Room Air 03/29/21 09:00 Room Air I & O 03/30/21 07:00 Intake Total 3450 ml Balance 3450 ml Capillary Refill : Less Than 3 Seconds General Appearance: No Apparent Distress, WD/WN HEENT: PERRL/EOMI, Pharynx Normal, Moist Mucous Membranes Neck: Full Range of Motion, Normal Inspection, Non Tender, Supple Respiratory: Lungs Clear, Normal Breath Sounds, No Accessory Muscle Use Cardiovascular: Regular Rate, Rhythm, No Edema, No Gallop, No Murmur, Normal Peripheral Pulses Peripheral Pulses: 2+ Radial Pulses (R), 2+ Radial Pulses (L) Gastrointestinal: normal bowel sounds, non tender, soft, no organomegaly, no pulsatile mass Extremity: Normal Capillary Refill, Normal Inspection, Normal Range of Motion, No Calf Tenderness, No Pedal Edema, Other (right arm, erythema and swelling reduced, above and below the surgical site, good nerurovascular stats distally.) Neurologic/Psychiatric: Alert, Oriented x3, No Motor/Sensory Deficits, Normal 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/Affect, 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 Norm as Tested Skin: Normal Color, Warm/Dry Lymphatic: No Adenopathy (cervical / axilary) Results Lab Laboratory Tests 03/29/21 09:56: Glucometer 177H 03/29/21 15:19: Glucometer 234H 03/29/21 16:58: Vancomycin Level Trough 16.9 03/29/21 17:07: Glucometer 275H 03/29/21 20:11: Glucometer 126H 03/30/21 06:00: White Blood Count 6.5, Red Blood Count 3.89L, Hemoglobin 12.3L, Hematocrit 36L, Mean Corpuscular Volume 93, Mean Corpuscular Hemoglobin 32, Mean Corpuscular Hemoglobin Concent 34, Red Cell Distribution Width 12.2, Platelet Count 361, Mean Platelet Volume 10.7, Immature Granulocyte % (Auto) 0, Neutrophils (%) (Auto) 44, Lymphocytes (%) (Auto) 39, Monocytes (%) (Auto) 7, Eosinophils (%) (Auto) 9, Basophils (%) (Auto) 1, Neutrophils # (Auto) 2.9, Lymphocytes # (Auto) 2.5, Monocytes # (Auto) 0.5, Eosinophils # (Auto) 0.6H, Basophils # (Auto) 0.1, Immature Granulocyte # (Auto) 0.0, Sodium Level 141, Potassium Level 4.3, Chloride Level 107, Carbon Dioxide Level 26, Anion Gap 8, Blood Urea Nitrogen 9, Creatinine 0.77, Estimat Glomerular Filtration Rate 112, BUN/Creatinine Ratio 12, Glucose Level 67L, Calcium Level 8.5, Corrected Calcium 9.5, Total Bilirubin 0.2, Aspartate Amino Transf (AST/SGOT) 16, Alanine Aminotransferase (ALT/SGPT) 22, Alkaline Phosphatase 62, Total Protein 5.7L, Albumin 2.8L 03/30/21 06:12: Glucometer 70 03/30/21 06:33: Glucometer 129H Microbiology 03/27/21 Gram Stain - Final, Resulted 03/27/21 Anaerobic Culture - Preliminary, Resulted No anaerobes isolated 03/27/21 Surgical Culture - Preliminary, Resulted Staphylococcus aureus 03/27/21 Fungal Culture 1 - Preliminary, Resulted 03/26/21 MRSA Screen - Final, Complete 03/26/21 Blood Culture - Preliminary, Resulted No growth Assessment/Plan Assessment/Plan Assessment/Plan S/P I&D Right upper Extremity abscess Plan - can switch to oral ABX, pain control and IV fluids, packing removed and replaced. Ok to go home when ok with medicine. Would send home on Bactrim, microbiology showed MRSA sensitive to Bactrim; probably didn't work as outpt because of abscess. KOLE FELICIANO DO 03/30/21 1236: Subjective Time Seen by a Provider: 11:35 Subjective/Events-last exam Pt seen and examined, no new complaints and he thinks arm is better. Review of Systems Pulmonary: No Dyspnea, No Cough Cardiovascular: No: Chest Pain, Palpitations Objective Exam General Appearance: No Apparent Distress, WD/WN HEENT: PERRL/EOMI, Moist Mucous Membranes Respiratory: Lungs Clear, Normal Breath Sounds, No Accessory Muscle Use Cardiovascular: Regular Rate, Rhythm, No Murmur Extremity: Other (right arm, erythema and swelling reduced, above and below the surgical site, good nerurovascular stats distally.) Assessment/Plan Assessment/Plan Assessment/Plan S/P I&D Right upper Extremity abscess Plan - switch to oral ABX and d/c home today, f/u as outpt Supervisory-Addendum Brief Verification & Attestation Participated in pt care: history, MDM, physical Personally performed: exam, history, MDM, supervision of care Care discussed with: Medical Student Procedures: n/a Verification and Attestation of Medical Student E/M Service A medical student performed and documented this service. I then reviewed and verified all information documented by the medical student and made modifications to such information, when appropriate. I personally performed a physical exam, medical decision making and then discussed any differences between the notes and made revisions as necessary to create one note. Kole Feliciano , 03/30/21 , 12:36 NAHUN MATTHEWS Mar 30, 2021 08:07 KOLE FELICIANO DO Mar 30, 2021 12:36
[2021-03-30] MEDS: NICOTINE 14 MG (NICODERM) PATCH TD SCH (09:13)
[2021-03-30] MEDS: MUPIROCIN 2% OINT 22 GM (BACTROBAN) TUBE NSEACH SCH (09:14)
[2021-03-30] MEDS: PATCH REMOVAL TP SCH (09:14)
[2021-03-30] MEDS: polyethylene glycoL POWDER 17 GM (MIRALAX) PACK PO SCH (09:24)
[2021-03-30] MEDS: morphine INJ 4 MG/ML 1 ML (VIAL/SYRINGE) IV PRN (09:24)
--- NOTE | 2021-03-30 10:03 | Discharge Summary ---
Discharge Summary Hospital Course Was the Problem List Reviewed?: Yes Problems/Dx: (1) Cellulitis Status: Acute Qualifiers: Qualified Codes: L03.113 - Cellulitis of right upper limb (2) Type 1 diabetes mellitus Status: Acute Qualifiers: Qualified Codes: E10.628 - Type 1 diabetes mellitus with other skin complications (3) Methamphetamine use Status: Acute Hospital Course Date of Admission: Mar 26, 2021 at 14:34 Admission Diagnosis : Family Physician/Provider: [facility] [place] Date of Discharge: 03/30/21 Discharge Diagnosis: Right arm cellulitis with abscess formation status post incision and drainage, methamphetamine use, diabetes type 1 Hospital Course: Short course after admitted for cellulitis and abscess formation IV antibiotics initiated along with insulin regimen status post incision and drainage by Dr. Feliciano much improved change packing and patient was deemed stable for discharge. Pt had a delay of discharge, he had no other issues, IV antibiotics maintained during that additional day and packing will be changed by Dr. Feliciano, and wound care will be arranged by Dr. Feliciano. Labs and Pending Lab Test: Laboratory Tests 03/29/21 15:19: Glucometer 234H 03/29/21 16:58: Vancomycin Level Trough 16.9 03/29/21 17:07: Glucometer 275H 03/29/21 20:11: Glucometer 126H 03/30/21 06:00: White Blood Count 6.5, Red Blood Count 3.89L, Hemoglobin 12.3L, Hematocrit 36L, Mean Corpuscular Volume 93, Mean Corpuscular Hemoglobin 32, Mean Corpuscular Hemoglobin Concent 34, Red Cell Distribution Width 12.2, Platelet Count 361, Mean Platelet Volume 10.7, Immature Granulocyte % (Auto) 0, Neutrophils (%) (Auto) 44, Lymphocytes (%) (Auto) 39, Monocytes (%) (Auto) 7, Eosinophils (%) (Auto) 9, Basophils (%) (Auto) 1, Neutrophils # (Auto) 2.9, Lymphocytes # (Auto) 2.5, Monocytes # (Auto) 0.5, Eosinophils # (Auto) 0.6H, Basophils # (Auto) 0.1, Immature Granulocyte # (Auto) 0.0, Sodium Level 141, Potassium Level 4.3, Chloride Level 107, Carbon Dioxide Level 26, Anion Gap 8, Blood Urea Nitrogen 9, Creatinine 0.77, Estimat Glomerular Filtration Rate 112, BUN/Creatinine Ratio 12, Glucose Level 67L, Calcium Level 8.5, Corrected Calcium 9.5, Total Bilirubin 0.2, Aspartate Amino Transf (AST/SGOT) 16, Alanine Aminotransferase (ALT/SGPT) 22, Alkaline Phosphatase 62, Total Protein 5.7L, Albumin 2.8L 03/30/21 06:12: Glucometer 70 03/30/21 06:33: Glucometer 129H Microbiology 03/27/21 Gram Stain - Final, Resulted 03/27/21 Anaerobic Culture - Preliminary, Resulted No anaerobes isolated 03/27/21 Surgical Culture - Final, Resulted Staphylococcus aureus 03/27/21 Fungal Culture 1 - Preliminary, Resulted 03/26/21 MRSA Screen - Final, Complete 03/26/21 Blood Culture - Preliminary, Resulted No growth Home Meds Active Zyvox (Linezolid) 600 Mg Tablet 600 Mg PO BID HYDROcodone/APAP 5 MG/325 MG TAB (Acetaminophen/Hydrocodone Bitart) 1 Tab Tab 1 Ea PO Q4H PRN Reported Novolog Flexpen (Insulin Aspart) 300 Units/3 Ml Solution 7 Units SQ AC Basaglar Kwikpen U-100 (Insulin Glargine,Hum.rec.anlog) 100 Unit/1 Ml Insuln.pen 20 Unit SQ HS Basaglar Kwikpen U-100 (Insulin Glargine,Hum.rec.anlog) 100 Unit/1 Ml Insuln.pen 25 Unit SQ DAILY Assessment/Pt Instructions [facility] in 1 week Discharge Planning: <30 minutes discharge planning Discharge Instructions Discharge Diet: ADA Diet Discharge Physical Examination Vital Signs Vital Signs Date Time Temp Pulse Resp B/P (MAP) Pulse Ox O2 Delivery O2 Flow Rate FiO2 03/30/21 08:51 Room Air 03/30/21 08:00 36.8 73 20 125/69 (87) 98 03/27/21 11:40 2 03/26/21 18:25 21 General Appearance: No Apparent Distress, WD/WN, Chronically ill Allergies: Coded Allergies: No Known Drug Allergies (Unverified , 12/02/13) Discharge Summary Date of Admission Mar 26, 2021 at 14:34 Date of Discharge Discharge Date: Mar 30, 2021 Admission Diagnosis Assessment: Right arm cellulitis with early abscess formation failed oral antibiotics Diabetes mellitus Hepatitis Mental illness Plan: IV antibiotics General surgery consultation Lovenox Insulin Discharge Diagnosis Assessment: Right arm cellulitis failed oral antibiotics status post incision and drainage postop day #0 Type 1 diabetes Plan: Supportive care IV antibiotics Packing 03/28/2021: Packing change tomorrow Pain control IV antibiotics (1) Cellulitis Status: Acute Qualifiers: Qualified Codes: L03.113 - Cellulitis of right upper limb (2) Type 1 diabetes mellitus Status: Acute Qualifiers: Qualified Codes: E10.628 - Type 1 diabetes mellitus with other skin complications (3) Methamphetamine use Status: Acute ANDRES AVENDANO DO Mar 30, 2021 10:03
[2021-03-30 12:07] VITALS: BP 144/85
--- NOTE | 2021-03-30 12:39 | Discharge Inst-Surgical ---
Discharge Inst-Surgical Depart Medication/Instructions Patient Instructions Follow up Appt: Make appointment for 1 week. [phone] Instructions: May shower in 24 hours, no tub bath or soaking. Use incentive spirometer at home as directed. No Smoking Skin/Wound Care: You need to leave the Bandage in place and come to the office on Monday between - to have packing changed, then return on Monday to again have changed. Symptoms to Report: Appetite Changes, Extremity Discoloration, Numbness/Tingling, Swelling Increased, Bleeding Excessive, Eyesight Changes, Pain Increased, Urine Color Change, Constipation(Persistent), Fever over 101 degree F, Pain/Pressure in chest, Urinating Difficulty, Cough Up/Vomit Blood, Heart Beat Irreg/Pounding, Pain/Pressure in jaw, Cramps in feet or legs, Lightheadedness, Pain/Pressure in shoulder, Diarrhea(Persistent), Memory Changes Suddenly, Questions/Concerns, Weight gain consecutive days, Dizziness/Fainting, Nausea/Vomiting, Shortness of Breath, Weight gain over 2 pounds If questions or concerns contact your physician Or seek help at emergency department. Activity Activity as Tolerated: Yes Activity Instructions: Avoid Pulling & Pushing Driving Instructions: You May Drive Diet Discharge Diet: No Restrictions Diet After 24 Hours: Clear Liquid if Nauseous If Any Problems/Questions/Issu: Contact Your Physician, Go to Emergency Room Skin/Wound Care Infection Signs and Symptoms: Increased Redness, Foul Odor of Wound, Increased Drainage, Skin Itchy or Has a Rash, Increased Swelling, Temperature Above 101 F Wound Care Comment: Keep area clean and dry, f/u in office for packing changes - Monday and Monday. Bathing Instructions: CONRAD Perdomo DO Mar 30, 2021 12:39
[2021-03-30 13:38] VITALS: BP 144/85
== END 2021-03-30 13:36 | disposition home or self-care (01) | DRG 581 ==
LOC: EDUNIT# 13:11 → ER 13:12 → 4TH 14:34
PROVIDERS: ADMIT Internal Medicine; ATTEND Internal Medicine
PROC: 0J9G0ZZ Drainage of Right Lower Arm Subcutaneous Tissue and Fascia, Open Approach (ICD-10-PCS; principal; 2021-03-29)
DX: L03.113 Cellulitis of right upper limb (principal); E10.628 Type 1 diabetes mellitus with other skin complications; B95.62 Methicillin resistant Staphylococcus aureus infection as the cause of diseases classified elsewhere; L02.413 Cutaneous abscess of right upper limb; E10.65 Type 1 diabetes mellitus with hyperglycemia; F31.9 Bipolar disorder, unspecified; F90.9 Attention-deficit hyperactivity disorder, unspecified type; F41.9 Anxiety disorder, unspecified; F20.9 Schizophrenia, unspecified; K75.9 Inflammatory liver disease, unspecified; F17.210 Nicotine dependence, cigarettes, uncomplicated; F15.90 Other stimulant use, unspecified, uncomplicated; Z79.4 Long term (current) use of insulin; Z79.899 Other long term (current) drug therapy; Z59.0 Homelessness; Z20.822 Contact with and (suspected) exposure to COVID-19
CPT/HCPCS: 36415; 71045; 76999; 80053; 80202; 80306; 82010; 82947; 83605; 85025; 85610; 85730; 86141; 87040; 87070; 87075; 87077; 87081; 87101; 87186; 87205; 87636; 96361; 96365; 96375

== ENCOUNTER → 2021-04-08 | Outpatient (CLI) | payer OTHER ==
[~2021-04-08] MED LIST changes: +ACHD5005 PO; +INSU100I34 SQ; +LINE600T12 PO
== END ==
LOC: WOUNDCARE 08:50
PROVIDERS: ATTEND Surgery
DX: L02.413 Cutaneous abscess of right upper limb (principal); S51.801A Unspecified open wound of right forearm, initial encounter; E10.622 Type 1 diabetes mellitus with other skin ulcer; T65.222A Toxic effect of tobacco cigarettes, intentional self-harm, initial encounter; F17.218 Nicotine dependence, cigarettes, with other nicotine-induced disorders; F15.21 Other stimulant dependence, in remission
CPT/HCPCS: 11042; 11045; G0463

== ENCOUNTER → 2021-04-12 | Outpatient (CLI) | payer OTHER | LOC: LAB 12:44 | PROVIDERS: ATTEND Surgery | DX: E44.1 Mild protein-calorie malnutrition (principal) | CPT/HCPCS: 36415; 84134 ==

== ENCOUNTER → 2021-04-15 | Outpatient (CLI) | payer OTHER | LOC: WOUNDCARE 10:18 | PROVIDERS: ATTEND Surgery | DX: L02.413 Cutaneous abscess of right upper limb (principal); S51.801A Unspecified open wound of right forearm, initial encounter; E11.622 Type 2 diabetes mellitus with other skin ulcer; T65.222A Toxic effect of tobacco cigarettes, intentional self-harm, initial encounter; E11.52 Type 2 diabetes mellitus with diabetic peripheral angiopathy with gangrene; F17.218 Nicotine dependence, cigarettes, with other nicotine-induced disorders; F15.21 Other stimulant dependence, in remission | CPT/HCPCS: 11042; 11045; 97605; G0463 ==

== ENCOUNTER → 2021-04-19 | Outpatient (CLI) | payer OTHER | LOC: WOUNDCARE 09:23 | PROVIDERS: ATTEND Surgery | DX: L02.413 Cutaneous abscess of right upper limb (principal); S51.801A Unspecified open wound of right forearm, initial encounter; E11.622 Type 2 diabetes mellitus with other skin ulcer; T65.222A Toxic effect of tobacco cigarettes, intentional self-harm, initial encounter; E11.52 Type 2 diabetes mellitus with diabetic peripheral angiopathy with gangrene; F17.218 Nicotine dependence, cigarettes, with other nicotine-induced disorders; F15.21 Other stimulant dependence, in remission | CPT/HCPCS: 11042; 11045; 97605; A6454; G0463 ==

== ENCOUNTER → 2021-04-22 | Outpatient (CLI) | payer OTHER | LOC: WOUNDCARE 09:36 | PROVIDERS: ATTEND Surgery | DX: S51.801A Unspecified open wound of right forearm, initial encounter (principal); E10.9 Type 1 diabetes mellitus without complications | CPT/HCPCS: 97605; A6454; G0463 ==

== ENCOUNTER → 2021-04-27 | Outpatient (CLI) | payer OTHER | LOC: WOUNDCARE 09:46 | PROVIDERS: ATTEND Surgery | DX: L02.413 Cutaneous abscess of right upper limb (principal); I96 Gangrene, not elsewhere classified; S51.801A Unspecified open wound of right forearm, initial encounter; E11.622 Type 2 diabetes mellitus with other skin ulcer; T65.222A Toxic effect of tobacco cigarettes, intentional self-harm, initial encounter; F17.218 Nicotine dependence, cigarettes, with other nicotine-induced disorders; F15.21 Other stimulant dependence, in remission ==

== ENCOUNTER → 2021-04-30 | Outpatient (CLI) | payer OTHER | LOC: WOUNDCARE 09:53 | PROVIDERS: ATTEND Surgery | DX: S51.801A Unspecified open wound of right forearm, initial encounter (principal); I96 Gangrene, not elsewhere classified; B15.9 Hepatitis A without hepatic coma; E10.9 Type 1 diabetes mellitus without complications; M10.9 Gout, unspecified; G40.909 Epilepsy, unspecified, not intractable, without status epilepticus | CPT/HCPCS: 97605; A6454; G0463 ==

== ENCOUNTER → 2021-05-03 | Outpatient (CLI) | payer OTHER | LOC: WOUNDCARE 10:33 | PROVIDERS: ATTEND Surgery | DX: L02.413 Cutaneous abscess of right upper limb (principal); I96 Gangrene, not elsewhere classified; S51.801A Unspecified open wound of right forearm, initial encounter; E11.622 Type 2 diabetes mellitus with other skin ulcer; T65.222A Toxic effect of tobacco cigarettes, intentional self-harm, initial encounter; F17.218 Nicotine dependence, cigarettes, with other nicotine-induced disorders; F15.21 Other stimulant dependence, in remission | CPT/HCPCS: 11042; 97607; A6454; A9272; G0463 ==

== ENCOUNTER → 2021-05-10 | Outpatient (CLI) | payer OTHER | LOC: WOUNDCARE 10:10 | PROVIDERS: ATTEND Surgery | DX: L02.413 Cutaneous abscess of right upper limb (principal); I96 Gangrene, not elsewhere classified; S51.801A Unspecified open wound of right forearm, initial encounter; E11.622 Type 2 diabetes mellitus with other skin ulcer; F15.21 Other stimulant dependence, in remission; T65.222A Toxic effect of tobacco cigarettes, intentional self-harm, initial encounter; F17.218 Nicotine dependence, cigarettes, with other nicotine-induced disorders | CPT/HCPCS: 11042; 97607; A9272; G0463 ==

== ENCOUNTER 2021-10-22 18:55 | Emergency (ER) | payer OTHER ==
[~2021-10-22] VITALS: Ht 175.3 cm; Wt 68.9 kg
[2021-10-22 19:09] VITALS: BP 145/94
[2021-10-22] MEDS ORDERED: TETRACAINE 0.5% OPHTH SOLN 4 ML BTL (SINGLE DOSE ONLY) OU ONE (19:15)
[2021-10-22] MEDS ORDERED: BSS 15 ML IR ONE (19:15)
[2021-10-22] MEDS ORDERED: FLUORESCEIN (FLUOR-I-STRIPS) 1 MG STRP OU ONE (19:15)
--- NOTE | 2021-10-22 19:43 | ED EENT ---
History of Present Illness General Chief Complaint: Eye Problems Stated Complaint: EYE PAIN Nursing Triage Note: Pt arrives via POV from home for c/o left eye pain; onset yesterday. Pt reports waking up yesterday to a "gritty feeling" in his eye, states he took over the counter eyedrops without relief. Pt reports today having a burning feeling et a headache behind the left eye. Pt reports no changes in vision but does report light sensativity. Pt denies known injury or foreign body. Source: patient Exam Limitations: no limitations History of Present Illness Date Seen by Provider: Oct 22, 2021 Time Seen by Provider: 19:38 Initial Comments To ER with pain behind the left eye that began sometime yesterday afternoon. He has had a "gritty" sensation in bilateral eyes but the left eye more so than the right eye. He took some [id number] eyedrops without any relief. He denies any injury to the eye. Does not wear contacts. He is currently homeless. He does use methamphetamines. Reports difficulty opening the eye due to pain Timing/Duration: abrupt Severity: moderate Location: eye (L) Prearrival Treatment: no prearrival treatment Associated Symptoms: denies symptoms Allergies and Home Medications Allergies Coded Allergies: No Known Drug Allergies (Unverified , 12/02/13) Patient Home Medication List Home Medication List Reviewed: Yes Hydrocodone Bit/Acetaminophen (HYDROcodone/APAP 5 MG/325 MG TAB) 1 Tab Tab, 1 EA PO Q4H PRN for PAIN-MODERATE (5-7) Prescribed by: ANDRES AVENDANO on 03/29/21 1136 Insulin Aspart (Novolog Flexpen) 300 Units/3 Ml Solution, 7 UNITS SQ AC, (Reported) Entered as Reported by: UTE VOGEL on 03/29/21 1008 Insulin Glargine,Hum.rec.anlog (Basaglar Kwikpen U-100) 100 Unit/1 Ml Insuln.pen, 25 UNIT SQ DAILY, (Reported) Entered as Reported by: UTE VOGEL on 03/29/21 1008 Insulin Glargine,Hum.rec.anlog (Basaglar Kwikpen U-100) 100 Unit/1 Ml Insuln .pen, 20 UNIT SQ HS, (Reported) Entered as Reported by: UTE VOGEL on 03/29/21 1008 Linezolid (Zyvox) 600 Mg Tablet, 600 MG PO BID Prescribed by: ANDRES AVENDANO on 03/29/21 1136 Review of Systems Review of Systems Constitutional: see HPI Eyes: See HPI Ears: No Symptoms Reported Nose: no symptoms reported Mouth: no symptoms reported Throat: no symptoms reported Respiratory: no symptoms reported Cardiovascular: no symptoms reported Musculoskeletal: no symptoms reported Skin: no symptoms reported Past Hlpahsg-Iosbaz-Gqzfhy Hx Patient Social History Tobacco Use?: Yes Tobacco type used: Cigarettes Smoking Status: Current Everyday Smoker Use of E-Cig and/or Vaping dev: No Substance use?: Yes Substance type: Methamphetamine Alcohol Use?: No Pt feels they are or have been: No Immunizations Up To Date Tetanus Booster (TDap): Less than 5yrs Influenza Vaccine Up-to-Date: No; Not Current COVID19 Vaccine 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[employer] Seasonal Allergies Seasonal Allergies: No Past Medical History Surgery/Hospitalization HX: PMH: DM INSULIN DEP, HTN, HIGH CHOL, SCHIZOEFFECTIVE, ADHD, ANXIETY Surgeries: Yes (I&D OF ABSCESS TO CHIN/NECK AREA) Respiratory: No Currently Using CPAP: No Currently Using BIPAP: No Cardiac: No Neurological: No Genitourinary: No Gastrointestinal: Yes (HEPATITIS--UNKNOWN TYPE) Liver Disease/Jaundice, Hepatitis Musculoskeletal: No Endocrine: Yes (TYPE 1 DIABETES) Diabetes, Insulin dep HEENT: No Cancer: No Psychosocial: Yes (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) ADD/ADHD, Anxiety, Suicide Attempts, Bipolar, Schizophrenia, Depression Integumentary: Yes (HX OF MRSA) Blood Disorders: No Family Medical History Alcoholism G8 BROTHER Arthritis Asthma 19 MOTHER (copd & hypotention) Cardiovascular disease 19 FATHER (cva) Completed stroke 19 FATHER Hypercholesterolemia 19 FATHER G8 SISTER Hypertension 19 FATHER Thyroid disease G8 SISTER (hyperthyroid) CAD Under 55 Years Old, Diabetes, Hypertension, Stroke SOCIAL HISTORY: -HX OF ALCOHOL ABUSE, NOW ONLY "OCCASIONALLY" USES -DRUGS--EXTENSIVE IV METH USE, HX OF IV COCAINE USE, THC USE -SMOKES 1 PPD MULTIPLE PSYCH ADMITS Physical Exam Vital Signs Vital Signs - First Documented 10/22/21 19:09 Temp 36.8 Pulse 87 Resp 18 B/P (MAP) 145/94 (111) Pulse Ox 97 O2 Delivery Room Air Height, Weight, BMI Height: 5'8.00" Weight: 162lbs. 1.6oz. [id number]; 22.00 BMI Method:Stated General Appearance: WD/WN, no apparent distress Eyes: left eye other (Left eye has some bulbar and palpebral conjunctivitis. Upon fluorescein staining there is an area of dye uptake linear about 3 mm long to the lateral aspect of the cornea from approximately the 2:30 to 4:30 position. No foreign body seen. Pupils reactive. Intraocular pressure was measured and found to be 23 mmHg.); bilateral eye PERRL, bilateral eye EOMI Ears: bilateral ear auricle normal, bilateral ear canal normal, bilateral ear TM normal Neck: non-tender, full range of motion Respiratory: no respiratory distress, no accessory muscle use Neurologic/Psychiatric: alert, normal mood/affect, oriented x 3 Skin: normal color Progress/Results/Core Measures Results/Orders My Orders Orders - MOE SOLITARIO APRN Tetracaine 0.5% Ophth Desirae Sdv (Tetracai (10/22/21 19:15) Fluorescein Strips (Ifjjo-[id number]-Taeuoz) (10/22/21 19:15) Balanced Salt Irrigation Soln (Bss Irrig (10/22/21 19:15) Gentamicin 0.3% Ophth Solution (Garamyci (10/22/21 19:45) Rx-Hydrocodone/Apap 5-325 Mg (Rx-Vicodin (10/22/21 19:45) Medications Given in ED Current Medications Medications Dose Ordered Sig/Andre Route Start Time Stop Time Status Last Admin Dose Admin Acetaminophen/ Hydrocodone Bitart 1 ea Q4H PRN PO 10/22/21 19:45 10/22/21 19:43 1 EA Balanced Salt Solution 15 ml ONCE ONCE IR 10/22/21 19:15 10/22/21 19:16 DC 10/22/21 19:21 15 ML Fluorescein Sodium 1 mg ONCE ONCE OU 10/22/21 19:15 10/22/21 19:16 DC 10/22/21 19:21 1 MG Tetracaine HCl 4 ml ONCE ONCE OU 10/22/21 19:15 10/22/21 19:16 DC 10/22/21 19:21 4 ML Vital Signs/I&O 10/22/21 19:09 Temp 36.8 Pulse 87 Resp 18 B/P (MAP) 145/94 (111) Pulse Ox 97 O2 Delivery Room Air Blood Pressure Mean: 111 Departure Communication (Admissions) Application of tetracaine did not seem to make much difference in his pain. I will put him on topical acyclovir and gentamicin and have him follow-up with Dr. Chan from optometry. We will give him hydrocodone to go home with. Impression Primary Impression: Corneal abrasion Additional Impression: Conjunctivitis Disposition: HOME, SELF-CARE Condition: Stable Departure-Patient Inst. Decision time for Depature: 19:43 Referrals: [facility] [place] (PCP/Family) Primary Care Physician Patient Instructions: Corneal Abrasion (DC), Conjunctivitis (Noninfectious Pinkeye) (DC) Add. Discharge Instructions: Call Dr. Butler to make an appointment to be seen. Return to ER for any worse gregory. All discharge instructions reviewed with patient and/or family. Voiced understanding. Copy Copies To 1: ZULEYKA BUTLER OD, PETER J APRN Oct 22, 2021 19:43
[2021-10-22] MEDS ORDERED: GENTAMICIN 0.3% OPHTH SOLN 5 ML OP SCH (19:45)
== END 2021-10-22 19:53 | disposition home or self-care (01) ==
LOC: EDUNIT# 18:55 → ER 18:59
DX: S05.02XA Injury of conjunctiva and corneal abrasion without foreign body, left eye, initial encounter (principal); H10.9 Unspecified conjunctivitis; F17.210 Nicotine dependence, cigarettes, uncomplicated; X58.XXXA Exposure to other specified factors, initial encounter
CPT/HCPCS: 99283

== ENCOUNTER 2021-10-27 07:53 | Emergency (ER) | payer OTHER ==
[~2021-10-27] VITALS: Ht 172 cm; Wt 69.0 kg
--- NOTE | 2021-10-27 08:14 | ED Upper Extremity ---
General Chief Complaint: Upper Extremity Stated Complaint: R THUMB PAIN Nursing Triage Note: AMB TO ED WITH C/O R THUMB PAIN ONSET LAST NIGHT TOOK 1 DOSE OF OTC PAIN MEDS NOT HELPING. Source: patient Exam Limitations: no limitations ([employer] STUDENT) History of Present Illness Date Seen by Provider: Oct 27, 2021 Time Seen by Provider: 08:00 Initial Comments Patient is a 40 year old male with pmh significant for insulin dependent diabetes mellitus who presents with a chief complaint of right thumb pain. Reports the pain began at home around 8pm last night and he did nothing to precipitate the pain. Took a dose of ibuprofen last night which helped relieve the pain along with a hot compress. Moving the distal right thumb and touching it increased the pain. Rates the pain at a 7/10 and is constant and stabbing. Denies chest pain, SOB, fevers, chills, and vomiting. Onset: yesterday Pain/Injury Location: right thumb Method of Injury: unknown Modifying Factors: Improves With Movement ([employer] STUDENT) Allergies and Home Medications Allergies Coded Allergies: No Known Drug Allergies (Unverified , 12/02/13) Patient Home Medication List Home Medication List Reviewed: Yes (ALEKSANDR ABDUL MD) Cephalexin (Cephalexin) 500 Mg Tablet, 500 MG PO TID Prescribed by: ALEKSANDR ABDUL on 10/27/21 0835 Hydrocodone Bit/Acetaminophen (HYDROcodone/APAP 5 MG/325 MG TAB) 1 Tab Tab, 1 EA PO Q4H PRN for PAIN-MODERATE (5-7) Prescribed by: ANDRES AVENDANO on 03/29/21 1136 Insulin Aspart (Novolog Flexpen) 300 Units/3 Ml Solution, 7 UNITS SQ AC, (Reported) Entered as Reported by: UTE VOGEL on 03/29/21 1008 Insulin Glargine,Hum.rec.anlog (Basaglar Kwikpen U-100) 100 Unit/1 Ml Insuln.pen, 25 UNIT SQ DAILY, (Reported) Entered as Reported by: UTE VOGEL on 03/29/21 1008 Insulin Glargine,Hum.rec.anlog (Basaglar Kwikpen U-100) 100 Unit/1 Ml Insuln.pen, 20 UNIT SQ HS, (Reported) Entered as Reported by: UTE VOGEL on 03/29/21 1008 Linezolid (Zyvox) 600 Mg Tablet, 600 MG PO BID Prescribed by: ANDRES AVENDANO on 03/29/21 1136 Review of Systems Constitutional: no symptoms reported; No chills, No diaphoresis, No fever EENTM: no symptoms reported; No blurred vision, No double vision Respiratory: no symptoms reported; No cough, No short of breath Cardiovascular: no symptoms reported; No chest pain, No edema, No palpitations Gastrointestinal: no symptoms reported; No abdominal pain, No nausea, No vomiting Genitourinary: No dysuria, No frequency Musculoskeletal: No back pain, No joint pain Skin: no symptoms reported; No change in color, No change in hair/nails Psychiatric/Neurological: No Symptoms Reported; Denies Anxiety, Denies Depressed ([employer] MED STUDENT) All Other Systems Reviewed Negative Unless Noted: Yes (COLLIN 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 STUDENT) Seasonal Allergies Seasonal Allergies: No (DA TALAMANTES [employer] STUDENT) Past Medical History Surgery/Hospitalization HX: PMH: DM INSULIN DEP, HTN, HIGH CHOL, SCHIZOEFFECTIVE, ADHD, ANXIETY Surgeries: Yes (I&D OF ABSCESS TO CHIN/NECK AREA) Respiratory: No Currently Using CPAP: No Currently Using BIPAP: No Cardiac: No Neurological: No Genitourinary: No Gastrointestinal: Yes (HEPATITIS--UNKNOWN TYPE) Liver Disease/Jaundice, Hepatitis Musculoskeletal: No Endocrine: Yes (TYPE 1 DIABETES) Diabetes, Insulin dep HEENT: No Loss of Vision: Denies Hearing Impairment: Denies Cancer: No Psychosocial: Yes (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) ADD/ADHD, Anxiety, Suicide Attempts, Bipolar, Schizophrenia, Depression Integumentary: Yes (HX OF MRSA) Blood Disorders: No (DA TALAMANTES [employer] STUDENT) Family Medical History Alcoholism G8 BROTHER Arthritis Asthma 19 MOTHER (copd & hypotention) Cardiovascular disease 19 FATHER (cva) Completed stroke 19 FATHER Hypercholesterolemia 19 FATHER G8 SISTER Hypertension 19 FATHER Thyroid disease G8 SISTER (hyperthyroid) CAD Under 55 Years Old, Diabetes, Hypertension, Stroke SOCIAL HISTORY: -HX OF ALCOHOL ABUSE, NOW ONLY "OCCASIONALLY" USES -DRUGS--EXTENSIVE IV METH USE, HX OF IV COCAINE USE, THC USE -SMOKES 1 PPD MULTIPLE PSYCH ADMITS (DA T[employer] MED STUDENT) Physical Exam Vital Signs Vital Signs - First Documented 10/27/21 08:00 Temp 35.5 Pulse 100 Resp 18 B/P (MAP) 146/97 (113) Pulse Ox 96 O2 Delivery Room Air (ALEKSNADR ABDUL MD) Vital Signs Capillary Refill : Less Than 3 Seconds (DA TALAM[employer]ES [employer] STUDENT) Height, Weight, BMI Height: 5'8.00" Weight: 162lbs. 1.6oz. [id number]; 23.00 BMI Method:Stated General Appearance: WD/WN, no apparent distress HEENT: PERRL/EOMI, pharynx normal Neck: non-tender, full range of motion Cardiovascular: normal peripheral pulses, regular rate, rhythm, no murmur Respiratory: chest non-tender, lungs clear, normal breath sounds Gastrointestinal: normal bowel sounds, non tender, soft Back: normal inspection, no vertebral tenderness Shoulder: normal inspection, normal ROM Elbow/Forearm: normal inspection, non-tender Wrist: Yes normal inspection, Yes non-tender Hand: Right (Right lateral aspect of distal thumb painful to palpation. Slighty increased redness compared to left thumb. Pain with movement. Cap refill <2seconds distal right thumb. Nail discolored. ) Neurologic/Tendon: normal sensation, normal motor functions Neurologic/Psychiatric: alert, normal mood/affect, oriented x 3 Skin: warm/dry Lymphatic: no adenopathy (Head and Neck) (DA [employer] MED STUDENT) Procedures/Interventions I&D : Site: right thumb/paronychia Blade Size: 11 I & D Procedure: betadine prep (ALEKSANDR ABDUL MD) Progress/Results/Core Measures Results/Orders Lab Results Laboratory Tests Test 10/27/21 09:00 Range/Units Glucometer 277 H 70-110 MG/DL (ALEKSANDR ABDUL MD) My Orders Orders - ALEKSANDR ABDUL MD Accucheck Stat ONCE (10/27/21 08:21) Ibuprofen Tablet (Motrin Tablet) (10/27/21 08:30) (ALEKSANDR ABDUL MD) Vital Signs/I&O (ALEKSANDR ABDUL MD) Blood Pressure Mean: 113 Progress Progress Note : Time: 08:29 Progress Note 40-year-old male, insulin-dependent diabetic presents with right thumb pain. Patient states pain started last night. Complains of pain along lateral aspect of the thumbnail. Tender to touch. No fevers chills, nausea vomiting. He has not taken his insulin this morning or checked his blood sugar. He has tried ibuprofen but is now out. He is also tried warm compresses. Physical exam remarkable for an area of pallor along the lateral aspect of the midportion of the thumbnail with surrounding erythema. Not really swollen. Exquisitely tender to the touch. All joints show normal range of motion. No proximal lymphangitic streaking of redness from the thumb. 1% lidocaine, 1 cc was used to do a partial digital block of the right thumb. #11 blade used to gently incise underneath the cuticle on the lateral aspect of the nail with return of pus. Patient was soaked in Betasept and saline. We will put him on a little bit of antibiotics for about a week as he is diabetic. Continue warm soaks and keeping the finger clean. All questions are sought and answered. (ALEKSANDR ABDUL MD) Departure Impression Primary Impression: Acute paronychia of right thumb Additional Impression: Diabetes mellitus Qualified Codes: E10.628 - Type 1 diabetes mellitus with other skin complications Disposition: 01 HOME, SELF-CARE Condition: Stable Departure-Patient Inst. Decision time for Depature: 08:32 (ALEKSANDR ABDUL MD) Referrals: [facility][1[facility] (PCP/Family) Primary Care Physician Patient Instructions: Paronychia ED Add. Discharge Instructions: Wash the thumb twice a day with a good soap and water. Soak in warm soapy water 2-3 times a day for the next couple of days. Keflex antibiotic 500mg three times a day for 5 days. Return to the ER for any worsening pain, redness, fever, extremely high blood sugars or other concerning symptoms. Scripts Cephalexin (Cephalexin) 500 Mg Tablet 500 MG PO TID, #15 TAB Prov: ALEKSANDR ABDUL MD 10/27/21 Verification and Attestation of Medical Student E/M Service A medical student performed and documented this service in my presence. I reviewed and verified all information documented by the medical student and made modifications to such information, when appropriate. I personally performed the physical exam and medical decision making. Aleksandr Abdul, Oct 28, 2021,06:22 (ALEKSANDR ABDUL MD) Copy Copies To 1: MANOHAR BOCANEGRA LUKE MED STUDENT Oct 27, 2021 08:13 ALEKSANDR ABDUL MD Oct 27, 2021 08:35
[2021-10-27] MEDS ORDERED: IBUPROFEN 600 MG (MOTRIN) TAB PO ONE (08:30)
[2021-10-27] MEDS ORDERED: CEPH500T PO (08:35)
[2021-10-27 09:08] VITALS: BP 146/97
== END 2021-10-27 09:08 | disposition home or self-care (01) ==
LOC: EDUNIT# 07:53 → ER 07:54
DX: L03.011 Cellulitis of right finger (principal); E10.628 Type 1 diabetes mellitus with other skin complications; F17.210 Nicotine dependence, cigarettes, uncomplicated
CPT/HCPCS: 82947

== ENCOUNTER 2021-11-13 14:56 | Emergency (ER) | payer OTHER ==
[~2021-11-13] VITALS: Ht 175.3 cm; Wt 68.0 kg
[~2021-11-13 14:56] MED LIST changes: +CEPH500T PO
[2021-11-13 15:23] LABS: BASOPHILS # (AUTO) 0.1 10^3/uL (0.0-0.1); BASOPHILS % (AUTO) 1 % (0-10); EOSINOPHILS # (AUTO) 0.1 10^3/uL (0.0-0.3); EOSINOPHILS % (AUTO) 2 % (0-10); HEMATOCRIT 41 % (40-54); HEMOGLOBIN 13.9 g/dL (13.3-17.7); LYMPHOCYTES # (AUTO) 2.2 10^3/uL (1.0-4.0); LYMPHOCYTES % (AUTO) 32 % (12-44); MEAN CORPUSCULAR HEMOGLOBIN 30 pg (25-34); MEAN CORPUSCULAR HGB CONC 34 g/dL (32-36); MEAN CORPUSCULAR VOLUME 88 fL (80-99); MEAN PLATELET VOLUME 10.6 fL (9.0-12.2); MONOCYTES # (AUTO) 0.5 10^3/uL (0.0-1.0); MONOCYTES % (AUTO) 8 % (0-12); NEUTROPHILS % (AUTO) 57 % (42-75); PLATELET COUNT 588 10^3/uL (130-400)
[2021-11-13 15:32] LABS: POTASSIUM 4.1 MMOL/L (3.6-5.0)
[2021-11-13 15:33] LABS: CALCIUM 9.5 MG/DL (8.5-10.1)
[2021-11-13 15:34] LABS: TOTAL PROTEIN 7.3 GM/DL (6.4-8.2)
[2021-11-13 15:35] LABS: INR 1.1 (0.8-1.4); PROTHROMBIN TIME PATIENT 14.4 SEC (12.2-14.7)
[2021-11-13 15:36] LABS: BILIRUBIN,TOTAL 0.4 MG/DL (0.1-1.0)
--- NOTE | 2021-11-13 15:36 | ED General ---
General Chief Complaint: General Problems/Pain Stated Complaint: ABD PAIN/R SIDE CP/HAND NUMBNESS X 3 DAYS Source of Information: Patient Exam Limitations: No Limitations (BERNARD SETH MED STUDENT) History of Present Illness Date Seen by Provider: Nov 13, 2021 Time Seen by Provider: 15:11 Initial Comments Mr. Navas is a 40yo male with PMH Hep A, DMI, and Gallstones that presents today for R side abdominal pain and pain and numbness in his hands. States that this started about 3 days ago. He does not remember a certain trigger, just states it came on. It started with the same symptoms he has now but he says its actually gotten better since onset. Has a dull pain, 5 at its worst in his RUQ. Feels similar to Hep A when he had it in the past. He also states he has a stinging sensation and trembling in his hands that has been there for a while. He has been nauseas, but denies any other symptoms. Nothing makes it better and he hasn't tried anything. Lifting and sometimes eating makes the pain worse. He was seen in walk-in clinic on monday when these symptoms were at their worse and was told to come to the ED but was not able to get in. He does also complain of some nausea but no vomiting or other symptoms. Nothing makes the pain better. Lifting makes it worse and so does eating sometimes. Hes a 1PPD smoker, states he uses meth and last use was today. NKDA. (BERNARD SETH MED STUDENT) Initial Comments Lauri Arredondo is his primary care provider. Patient also reports he was admitted and intubated last week at a facility in [place] due to severe h ypoglycemia and altered mental status. He also states he is essentially homeless and is presently staying at someone else's apartment. He does have a means to check his blood sugar but he is quite hyperglycemic today. He has used methamphetamines within the last 24 hours. (EMELI BURGOS MD) Allergies and Home Medications Allergies Coded Allergies: No Known Drug Allergies (Unverified , 12/02/13) Patient Home Medication List Home Medication List Reviewed: Yes (EMELI BURGOS MD) Insulin Aspart (Novolog Flexpen) 300 Units/3 Ml Solution, 7 UNITS SQ AC, (Reported) Entered as Reported by: UTE VOGEL on 03/29/21 1008 Insulin Glargine,Hum.rec.anlog (Lantus Solostar) 100 Unit/1 Ml Insuln.pen, 25 UNIT SQ DAILY, (Reported) Entered as Reported by: UTE VOGEL on 11/03/21 1439 Insulin Glargine,Hum.rec.anlog (Lantus Solostar) 100 Unit/1 Ml Insuln.pen, 20 UNIT SQ HS, (Reported) Entered as Reported by: UTE VOGEL on 11/03/21 1439 Review of Systems Review of Systems Constitutional: No chills, No fever EENTM: No hearing loss, No vision loss Respiratory: No cough, No short of breath, No wheezing Cardiovascular: No chest pain Gastrointestinal: abdominal pain (RUQ); No constipation, No diarrhea, No jaundice, No melena; nausea; No vomiting Genitourinary: No dysuria, No hematuria Musculoskeletal: No back pain; joint pain (Fingertips), joint swelling (Fingertips) Skin: No lesions, No rash; other (no jaundice) Psychiatric/Neurological: Denies Headache; Numbness (fingertips), Tingling (fingertips), Tremors (hands) (BERNARD SETH STUDENT) Past Eecanzl-Uvciky-Lwnaqp Hx Patient Social History Substance use?: Yes Substance type: Methamphetamine Alcohol Use?: No (EMELI BURGOS MD) Immunizations Up To Date Tetanus Booster (TDap): Less than 5yrs First/Initial COVID19 Vaccinat: 11/08 Second COVID19 Vaccination Armando: 01/08 (BERNARD SETH STUDENT) Seasonal Allergies Seasonal Allergies: No (BERNARD SETH STUDENT) Past Medical History Surgery/Hospitalization HX: PMH: DM INSULIN DEP, HTN, HIGH CHOL, SCHIZOEFFECTIVE, ADHD, ANXIETY Surgeries: Yes (I&D OF ABSCESS TO CHIN/NECK AREA) Respiratory: No Currently Using CPAP: No Currently Using BIPAP: No Cardiac: No Neurological: No Genitourinary: No Gastrointestinal: Yes (HEPATITIS--UNKNOWN TYPE) Liver Disease/Jaundice, Hepatitis Musculoskeletal: No Endocrine: Yes (TYPE 1 DIABETES-NONCOMPLIANT IN ALL ASPECTS OF CARE) Diabetes, Insulin dep HEENT: No Loss of Vision: Denies Hearing Impairment: Denies Cancer: No Psychosocial: Yes (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) ADD/ADHD, Anxiety, Suicide Attempts, Bipolar, Schizophrenia, Depression Integumentary: Yes (HX OF MRSA; ABSCESSES) Blood Disorders: No (BERNARD SETH STUDENT) Family Medical History Alcoholism G8 BROTHER Arthritis Asthma 19 MOTHER (copd & hypotention) Cardiovascular disease 19 FATHER (cva) Completed stroke 19 FATHER Hypercholesterolemia 19 FATHER G8 SISTER Hypertension 19 FATHER Thyroid disease G8 SISTER (hyperthyroid) CAD Under 55 Years Old, Diabetes, Hypertension, Stroke SOCIAL HISTORY: -HX OF ALCOHOL ABUSE, NOW ONLY "OCCASIONALLY" USES -DRUGS--EXTENSIVE IV METH USE, HX OF IV COCAINE USE, THC USE -SMOKES 1 PPD MULTIPLE PSYCH ADMITS (BERNARD SETH STUDENT) Physical Exam Vital Signs Vital Signs - First Documented 11/13/21 15:04 Temp 37.0 Pulse 92 Resp 24 B/P (MAP) 175/97 (123) Pulse Ox 98 (EMELI BURGOS MD) Vital Signs Capillary Refill : (BERNARD SETH STUDENT) Height, Weight, BMI Height: 5'8.00" Weight: 162lbs. 1.6oz. 73.100499lw; 22.68 BMI Method:Stated General Appearance: No Apparent Distress, Thin Eyes: Bilateral Eye PERRL, Bilateral Eye EOMI HEENT: PERRL/EOMI, Pharynx Normal, Moist Mucous Membranes; No Scleral Icterus (L), No Scleral Icterus (R) Respiratory: Chest Non Tender, Lungs Clear, Normal Breath Sounds Cardiovascular: Regular Rate, Rhythm, No Edema, No Murmur, Normal Peripheral Pulses Gastrointestinal: Normal Bowel Sounds, Soft, Tenderness (RUQ), Other (Negative murphys) Back: Normal Inspection, No Vertebral Tenderness Extremity: Non Tender, No Calf Tenderness, No Pedal Edema Neurologic/Psychiatric: Alert, Oriented x3, No Motor/Sensory Deficits Skin: Normal Color, Warm/Dry, Other (no jaundice) (BERNARD SETH STUDENT) Procedures/Interventions Date of ETT Placement: Nov 03, 2021 Time of ETT Placement: 0830 (BERNARD SETH STUDENT) Progress/Results/Core Measures Suspected Sepsis SIRS Temperature: Pulse: Respiratory Rate: Laboratory Tests 11/13/21 15:15: White Blood Count 7.0 Blood Pressure / Mean: Laboratory Tests 11/13/21 15:15: Creatinine 1.05, INR Comment 1.1, Platelet Count 588H, Total Bilirubin 0.4 (DORINDABERNARD VEGA MED STUDENT) Results/Orders Lab Results Laboratory Tests Test 11/13/21 15:15 11/13/21 15:56 11/13/21 16:20 Range/Units White Blood Count 7.0 4.3-11.0 10^3/uL Red Blood Count 4.62 4.30-5.52 10^6/uL Hemoglobin 13.9 # 13.3-17.7 g/dL Hematocrit 41 40-54 % Mean Corpuscular Volume 88 80-99 fL Mean Corpuscular Hemoglobin 30 25-34 pg Mean Corpuscular Hemoglobin Concent 34 32-36 g/dL Red Cell Distribution Width 13.1 10.0-14.5 % Platelet Count 588 H 130-400 10^3/uL Mean Platelet Volume 10.6 9.0-12.2 fL Immature Granulocyte % (Auto) 0 % Neutrophils (%) (Auto) 57 42-75 % Lymphocytes (%) (Auto) 32 12-44 % Monocytes (%) (Auto) 8 0-12 % Eosinophils (%) (Auto) 2 0-10 % Basophils (%) (Auto) 1 0-10 % Neutrophils # (Auto) 4.0 1.8-7.8 10^3/uL Lymphocytes # (Auto) 2.2 1.0-4.0 10^3/uL Monocytes # (Auto) 0.5 0.0-1.0 10^3/uL Eosinophils # (Auto) 0.1 0.0-0.3 10^3/uL Basophils # (Auto) 0.1 0.0-0.1 10^3/uL Immature Granulocyte # (Auto) 0.0 0.0-0.1 10^3/uL Prothrombin Time 14.4 12.2-14.7 SEC INR Comment 1.1 0.8-1.4 Activated Partial Thromboplast Time 28 24-35 SEC Sodium Level 138 135-145 MMOL/L Potassium Level 4.1 3.6-5.0 MMOL/L Chloride Level 99 98-107 MMOL/L Carbon Dioxide Level 21 21-32 MMOL/L Anion Gap 18 H 5-14 MMOL/L Blood Urea Nitrogen 15 7-18 MG/DL Creatinine 1.05 0.60-1.30 MG/DL Estimat Glomerular Filtration Rate 92 BUN/Creatinine Ratio 14 Glucose Level 417 *H 70-105 MG/DL Calcium Level 9.5 8.5-10.1 MG/DL Corrected Calcium 9.5 8.5-10.1 MG/DL Magnesium Level 1.9 1.6-2.4 MG/DL Total Bilirubin 0.4 0.1-1.0 MG/DL Aspartate Amino Transf (AST/SGOT) 18 5-34 U/L Alanine Aminotransferase (ALT/SGPT) 23 0-55 U/L Alkaline Phosphatase 79 40-136 U/L Myoglobin 58.4 10.0-92.0 NG/ML Troponin I < 0.028 <0.028 NG/ML C-Reactive Protein High Sensitivity 2.32 H 0.00-0.50 MG/DL Total Protein 7.3 6.4-8.2 GM/DL Albumin 4.0 3.2-4.5 GM/DL Lipase 161 H 8-78 U/L Urine Color YELLOW Urine Clarity CLEAR Urine pH 6.0 5-9 Urine Specific [place] 1.015 L 1.016-1.022 Urine Protein NEGATIVE NEGATIVE Urine Glucose (UA) 3+ H NEGATIVE Urine Ketones 3+ H NEGATIVE Urine Nitrite NEGATIVE NEGATIVE Urine Bilirubin NEGATIVE NEGATIVE Urine Urobilinogen 0.2 < = 1.0 MG/DL Urine Leukocyte Esterase NEGATIVE NEGATIVE Urine RBC (Auto) NEGATIVE NEGATIVE Urine RBC NONE /HPF Urine WBC NONE /HPF Urine Squamous Epithelial Cells RARE /HPF Urine Crystals NONE /LPF Urine Bacteria NEGATIVE /HPF Urine Casts NONE /LPF Urine Mucus NEGATIVE /LPF Urine Culture Indicated NO Urine Opiates Screen NEGATIVE NEGATIVE Urine Oxycodone Screen NEGATIVE NEGATIVE Urine Methadone Screen NEGATIVE NEGATIVE Urine Propoxyphene Screen NEGATIVE NEGATIVE Urine Barbiturates Screen NEGATIVE NEGATIVE Ur Tricyclic Antidepressants Screen NEGATIVE NEGATIVE Urine Phencyclidine Screen NEGATIVE NEGATIVE Urine Amphetamines Screen POSITIVE H NEGATIVE Urine Methamphetamines Screen POSITIVE H NEGATIVE Urine Benzodiazepines Screen NEGATIVE NEGATIVE Urine Cocaine Screen NEGATIVE NEGATIVE Urine Cannabinoids Screen NEGATIVE NEGATIVE Glucometer 393 H 70-110 MG/DL (EMELI BURGOS MD) My Orders Orders - EMELI BURGOS MD Cbc With Automated Diff (11/13/21 15:11) Magnesium (11/13/21 15:11) Chest 1 View, Ap/Pa Only (11/13/21 15:11) Ekg Tracing (11/13/21 15:11) Comprehensive Metabolic Panel (11/13/21 15:11) Myoglobin Serum (11/13/21 15:11) Protime With Inr (11/13/21 15:11) Partial Thromboplastin Time (11/13/21 15:11) O2 (11/13/21 15:11) Monitor-Rhythm Ecg Trace Only (11/13/21 15:11) Ed Iv/Invasive Line Start (11/13/21 15:11) Troponin I [place] (11/13/21 15:11) Drug Screen Stat (Urine) (11/13/21 15:11) Ua Culture If Indicated (11/13/21 15:11) Hs C Reactive Protein (11/13/21 15:15) Lipase (11/13/21 15:15) Lorazepam Injection (Ativan Injection) (11/13/21 16:15) Insulin (Regular) Human (Novolin R (Per (11/13/21 16:15) Lactated Ringers (Lr 1000 Ml Iv Solution (11/13/21 16:15) Accucheck Stat ONCE (11/13/21 16:17) Us Gallbladder 18580 (11/13/21 16:28) Lorazepam Tablet (Ativan Tablet) (11/13/21 17:48) (EMELI BURGOS MD) Medications Given in ED (EMELI BURGOS MD) Vital Signs/I&O 11/13/21 11/13/21 15:04 17:56 Temp 37.0 Pulse 92 110 Resp 24 16 B/P (MAP) 175/97 (123) 132/88 Pulse Ox 98 97 (EMELI BURGOS MD) Vital Signs/I&O Capillary Refill : (BERNARD SETH MED STUDENT) Progress Note : Progress Note Patient received IV hydration and insulin. Glucose was trending downward. Work-up was unremarkable except for hyperglycemia and minor elevation in lipase. We discussed possible etiologies for his symptoms which include neuropathy, methamphetamine use, and hyperglycemia as contributing factors. He was given Ativan to help with the anxiety and tremors. We did not work on his blood sugar any further as patient was very anxious for discharge. See discharge instructions for further discussion. Patient gave a history of gallstones. Right upper quadrant ultrasound was obtained to rule out gallstone pancreatitis. Ultrasound was unremarkable. (EMELI BURGOS MD) ECG Initial ECG Impression Date: Nov 13, 2021 Initial ECG Impression Time: 15:37 Initial ECG Rate: 79 Initial ECG Rhythm: Normal Sinus Initial ECG Intervals: Normal Initial ECG Impression: Normal Comment Normal sinus rhythm with no ST elevation or depression. No abnormal intervals or axis deviation. (EMELI BURGOS MD) Diagnostic Imaging Diagonstic Imaging: Xray Plain Films/CT/US/NM/MRI: chest Comments NAME: DULCE NAVAS [facility] REC#: [id number] PT STATUS: REG ER : 1980 PHYSICIAN: EMELI BURGOS MD ADMIT DATE: 11/13/21/ER Signed Date of Exam:11/13/21 CHEST 1 VIEW, AP/PA ONLY INDICATION: Chest pain. EXAMINATION: Chest, 11/13/2021. COMPARISON: 11/08/2021. FINDINGS: ET tube, feeding tube and left central line have been removed in the interval. There is atelectasis at the bases with no focal infiltrates or effusions. There is no pneumothorax. No effusions. Heart and pulmonary vasculature are normal. Old rib fractures noted in the posterior medial upper ribs. IMPRESSION: Bibasilar atelectasis with no acute cardiopulmonary process. Chronic findings as above. Dictated by: Dictated on workstation # [id number] Dict: 11/13/21 1557 Trans: 11/13/21 1635 [facility] [id number] Interpreted by: JACKI POWELL MD Electronically signed by: JACKI POWELL MD 11/13/21 1630 Diagonstic Imaging: Ultrasound Plain Films/CT/US/NM/MRI: abdomen Comments NAME: DULCE NAVAS [facility] REC#: [id number] PT STATUS: REG ER : 1980 PHYSICIAN: EMELI BURGOS MD ADMIT DATE: 11/13/21/ER Signed Date of Exam:11/13/21 US GALLBLADDER [id number] PROCEDURE: US gallbladder. TECHNIQUE: Multiple real-time grayscale images were obtained over the right upper quadrant in various projections. INDICATION: Suspicion for gallstone pancreatitis. COMPARISON: Correlation with CT of 11/03. FINDINGS: Liver parenchyma appears nonfocal. No solid or cystic liver mass. The portal vein is patent and shows normal hepatopetal directional flow. Some focal [id number] elevated echotexture in the lateral aspect of the left hepatic lobe, most suggestive of some focal fat. This did not distort blood vessels passing through it. Gallbladder is normal. There is no bile duct dilatation. The aorta is nonaneurysmal. The IVC unremarkable. Visualized portions of the pancreas are normal. There is no gallstone or sludge. No pericholecystic fluid. There is no ascites. IMPRESSION: No biliary abnormality. No ascites. Likely focal fatty infiltration of the lateral left hepatic lobe without findings suggestive of an underlying mass or parenchymal architectural distortion. Dictated by: Dictated on workstation # [id number] Dict: 11/13/211723 Trans: 11/13/211746 [facility] [id number] Interpreted by: FARZANA NUNN Electronically signed by: FARZANA NUNN 11/13/211746 (EMELI BURGOS MD) Departure Impression Primary Impression: Acute pancreatitis Qualified Codes: K85.90 - Acute pancreatitis without necrosis or infection, unspecified Additional Impressions: Right upper quadrant pain Paresthesia Methamphetamine use Hyperglycemia Disposition: 01 HOME, SELF-CARE Condition: Stable Departure-Patient Inst. Decision time for Depature: 17:50 (EMELI BURGOS MD) Referrals: [facility] [place] (PCP/Family) Primary Care Physician Patient Instructions: Pancreatitis Add. Discharge Instructions: Adhere to a clear liquid diet for the next 24 hours. This should help improve your pancreatitis. Gradually advance your diet with small quantities of bland food after at least 24 hours of clear liquid diet. Avoid fatty or greasy foods. Monitor your blood sugars closely, especially while you have an altered diet. Follow-up with your primary care provider soon as possible to discuss further evaluation of your symptoms. The pain and numbness in your hands may be a form of neuropathy and may be improved by medications for neuropathic pain such as gabapentin. Please discuss with your primary care provider. Call with questions or concerns. Return to the ER if you have worsening symptoms despite following these inst ructions. All discharge instructions reviewed with patient and/or family. Voiced understanding. Medical Student Attestation and Attending Note: I have personally interviewed and examined this patient along with Bernard Seth, MS 4. I have reviewed student documentation including history, physical, and assessments. I agree with the documentation except where otherwise noted. Exam: General: Alert, oriented, no acute distress, well developed HEENT: Normocephalic and atraumatic Heart: Regular rate and rhythm without murmur Lungs: Clear to auscultation bilaterally with normal effort Abdomen: Soft, minor tenderness in the right upper quadrant and epigastrium, nondistended, normal bowel sounds Neuropsych: Alert, oriented, no focal deficits, upper extremity tremors and facial tremors Skin: Warm and dry without rashes, calluses and erythema of the hands (EMELI BURGOS MD) Copy Copies To 1: MANOHAR BOCANEGRA DEREK MED STUDENT Nov 13, 2021 15:36 EMELI BURGOS MD Nov 13, 2021 17:52
[2021-11-13 15:38] LABS: CREATININE SERUM 1.05 MG/DL (0.60-1.30)
[2021-11-13 15:41] LABS: MAGNESIUM 1.9 MG/DL (1.6-2.4)
--- NOTE | 2021-11-13 16:03 | Diagnostic Imaging Report ---
INDICATION: Chest pain. EXAMINATION: Chest, 11/13/2021. COMPARISON: 11/08/2021. FINDINGS: ET tube, feeding tube and left central line have been removed in the interval. There is atelectasis at the bases with no focal infiltrates or effusions. There is no pneumothorax. No effusions. Heart and pulmonary vasculature are normal. Old rib fractures noted in the posterior medial upper ribs. IMPRESSION: Bibasilar atelectasis with no acute cardiopulmonary process. Chronic findings as above. Dictated by: Dictated on workstation # [id number]
[2021-11-13 16:06] LABS: BILIRUBIN,URINE NEGATIVE (NEGATIVE); CLARITY,URINE CLEAR; COLOR,URINE YELLOW; GLUCOSE, URINE (UA) 3+ (NEGATIVE); KETONES,URINE 3+ (NEGATIVE); LEUKOCYTE ESTERASE ,URINE NEGATIVE (NEGATIVE); NITRITE,URINE NEGATIVE (NEGATIVE); PROTEIN,URINE NEGATIVE (NEGATIVE)
[2021-11-13] MEDS ORDERED: inSUlin (REGULAR) HUMAN 1 UNIT/0.01 ML (CHARGE PER UNIT) IV ONE (16:15)
[2021-11-13] MEDS ORDERED: LACTATED RINGERS 1,000 ML IV ONE (16:15)
[2021-11-13] MEDS ORDERED: LORazepam INJ 2 MG/ML (ATIVAN) VIAL IVP ONE (16:15)
[2021-11-13 16:17] LABS: BACTERIA,URINE NEGATIVE /HPF; SQUAMOUS EPITHELIAL CELL,UR RARE /HPF
[2021-11-13 16:19] LABS: AMPHETAMINE SCREEN, URINE POSITIVE (NEGATIVE); BARBITURATE SCREEN URINE NEGATIVE (NEGATIVE); BENZODIAZEPINES SCREEN URINE NEGATIVE (NEGATIVE); CANNABINOID SCREEN, URINE NEGATIVE (NEGATIVE); COCAINE SCREEN URINE NEGATIVE (NEGATIVE); METHADONE STAT NEGATIVE (NEGATIVE); METHAMPHETAMINE SCREEN URINE S POSITIVE (NEGATIVE); OPIATE SCREEN URINE NEGATIVE (NEGATIVE); OXYCODONE STAT NEGATIVE (NEGATIVE); PROPOXYPHENE STAT NEGATIVE (NEGATIVE); TRICYCLIC ANTIDEPRESSANTS SCRE NEGATIVE (NEGATIVE)
--- NOTE | 2021-11-13 17:34 | Diagnostic Imaging Report ---
PROCEDURE: US gallbladder. TECHNIQUE: Multiple real-time grayscale images were obtained over the right upper quadrant in various projections. INDICATION: Suspicion for gallstone pancreatitis. COMPARISON: Correlation with CT of 11/03. FINDINGS: Liver parenchyma appears nonfocal. No solid or cystic liver mass. The portal vein is patent and shows normal hepatopetal directional flow. Some focal [id number] elevated echotexture in the lateral aspect of the left hepatic lobe, most suggestive of some focal fat. This did not distort blood vessels passing through it. Gallbladder is normal. There is no bile duct dilatation. The aorta is nonaneurysmal. The IVC unremarkable. Visualized portions of the pancreas are normal. There is no gallstone or sludge. No pericholecystic fluid. There is no ascites. IMPRESSION: No biliary abnormality. No ascites. Likely focal fatty infiltration of the lateral left hepatic lobe without findings suggestive of an underlying mass or parenchymal architectural distortion. Dictated by: Dictated on workstation # [id number]
[2021-11-13] MEDS ORDERED: LORazepam 0.5 MG (ATIVAN) TABLET PO STA (17:48)
[2021-11-13 17:56] VITALS: BP 132/88
== END 2021-11-13 18:01 | disposition home or self-care (01) ==
LOC: EDUNIT# 14:56 → ER 14:58
DX: K85.90 Acute pancreatitis without necrosis or infection, unspecified (principal); E10.65 Type 1 diabetes mellitus with hyperglycemia; R20.2 Paresthesia of skin; F15.90 Other stimulant use, unspecified, uncomplicated; R74.8 Abnormal levels of other serum enzymes; R25.1 Tremor, unspecified; F41.9 Anxiety disorder, unspecified; F17.210 Nicotine dependence, cigarettes, uncomplicated
CPT/HCPCS: 36415; 71045; 76705; 80053; 80306; 81000; 82947; 83690; 83735; 83874; 84484; 85025; 85610; 85730; 86141; 93005; 93041

== ENCOUNTER 2021-11-21 14:28 | Inpatient (IN) | payer OTHER ==
[~2021-11-21] VITALS: Ht 175.3 cm; Wt 63.0 kg
[2021-11-21] MEDS ORDERED: LACTATED RINGERS 1,000 ML IV ONE (15:15)
[2021-11-21] MEDS ORDERED: KETOROLAC 30 MG/ML VIAL IVP ONE (15:30)
[2021-11-21 15:44] LABS: BASOPHILS # (AUTO) 0.1 10^3/uL (0.0-0.1); BASOPHILS % (AUTO) 0 % (0-10); EOSINOPHILS # (AUTO) 0.1 10^3/uL (0.0-0.3); EOSINOPHILS % (AUTO) 1 % (0-10); HEMATOCRIT 37 % (40-54); HEMOGLOBIN 12.1 g/dL (13.3-17.7); LYMPHOCYTES % (AUTO) 13 % (12-44); MEAN CORPUSCULAR HEMOGLOBIN 30 pg (25-34); MEAN CORPUSCULAR HGB CONC 33 g/dL (32-36); MEAN CORPUSCULAR VOLUME 91 fL (80-99); MEAN PLATELET VOLUME 10.7 fL (9.0-12.2); MONOCYTES # (AUTO) 0.8 X 10^3 (0.0-1.0); MONOCYTES % (AUTO) 5 % (0-12); NEUTROPHILS # (AUTO) 12.6 X 10^3 (1.8-7.8); NEUTROPHILS % (AUTO) 81 % (42-75); PLATELET COUNT 555 10^3/uL (130-400); WHITE BLOOD COUNT 15.7 10^3/uL (4.3-11.0)
[2021-11-21 15:52] LABS: ALBUMIN 3.4 GM/DL (3.2-4.5); POTASSIUM 4.3 MMOL/L (3.6-5.0)
[2021-11-21 15:53] LABS: INR 1.1 (0.8-1.4); PROTHROMBIN TIME PATIENT 14.1 SEC (12.2-14.7)
[2021-11-21 15:54] LABS: CALCIUM 9.2 MG/DL (8.5-10.1)
[2021-11-21 15:55] LABS: TOTAL PROTEIN 6.8 GM/DL (6.4-8.2)
[2021-11-21 15:56] LABS: BILIRUBIN,TOTAL 0.2 MG/DL (0.1-1.0)
[2021-11-21 15:58] LABS: CREATININE SERUM 1.04 MG/DL (0.60-1.30)
[2021-11-21 16:00] LABS: EOSINOPHILS % (MANUAL) 1 %; LYMPHOCYTES % (MANUAL) 13 %; MONOCYTES % (MANUAL) 7 %; NEUTROPHILS % (MANUAL) 79 %; RBC MORPH NORMAL
--- NOTE | 2021-11-21 16:01 | ED General ---
General Chief Complaint: Lower Extremity Stated Complaint: R FOOT CELLULITIS Nursing Triage Note: PT AMB TO RM 10 WITH COMPLAINT OF RIGHT FOOT SWELLING AND REDNESS. WENT TO [facility] YESTERDAY AND HAD AN ANTIBIOTIC SHOT AND DOXYCYCLINE. Source of Information: Patient, Old Records Exam Limitations: No Limitations History of Present Illness Date Seen by Provider: Nov 21, 2021 Time Seen by Provider: 15:06 Initial Comments This 41-year-old gentleman with type I DM presents to the emergency room with complaints of right foot infection for which he was seen at the [facility] clinic yesterday. He reports receiving a Rocephin injection and being prescribed doxycycline. He has taken 4 doses of doxycycline. Despite these treatments, he now has erythema and swelling worsening on the right foot and streaking up the lower leg. He denies fever. He is mildly tachycardic. He has had multiple healthcare interactions recently. Admitted October he was admitted for r espiratory failure and methamphetamine withdrawal. He was then seen in the emergency room on November 13 for pancreatitis and hyperglycemia. During that visit he stated his prior visit with respiratory failure requiring intubation occurred in [place]. He must have been confused because that story correlates with his admission to [facility] in [place] in mid October was discharged on November 11. Patient states the pain in his foot has improved some but the exam has worsened despite the antibiotic therapy. He is afebrile at present. He has history of substance abuse so reports his last use was a couple of weeks ago. His social situation is a bit precarious as he is essentially homeless at this time without a stable place to stay. Allergies and Home Medications Allergies Coded Allergies: No Known Drug Allergies (Unverified , 12/02/13) Patient Home Medication List Home Medication List Reviewed: Yes Insulin Aspart (Novolog Flexpen) 300 Units/3 Ml Solution, 7 UNITS SQ AC, (Reported) Entered as Reported by: UTE VOGEL on 03/29/21 1008 Insulin Glargine,Hum.rec.anlog (Lantus Solostar) 100 Unit/1 Ml Insuln.pen, 25 UN IT SQ DAILY, (Reported) Entered as Reported by: UTE VOGEL on 11/03/21 1439 Insulin Glargine,Hum.rec.anlog (Lantus Solostar) 100 Unit/1 Ml Insuln.pen, 20 UNIT SQ HS, (Reported) Entered as Reported by: UTE VOGEL on 11/03/21 6269 Review of Systems Review of Systems Constitutional: no symptoms reported EENTM: no symptoms reported Respiratory: no symptoms reported Cardiovascular: see HPI Gastrointestinal: no symptoms reported Genitourinary: no symptoms reported Musculoskeletal: no symptoms reported Skin: see HPI Psychiatric/Neurological: See HPI Hematologic/Lymphatic: No Symptoms Reported Immunological/Allergic: no symptoms reported Past Xsgorbd-Vybayx-Iztykd Hx Patient Social History Tobacco Use?: Yes Tobacco type used: Cigarettes Smoking Status: Current Everyday Smoker Use of E-Cig and/or Vaping dev: No Additional substance use comme: past hx of meth Alcohol Use?: No Pt feels they are or have been: No Immunizations Up To Date Tetanus Booster (TDap): Less than 5yrs First/Initial COVID19 Vaccinat: 11/08 Second COVID19 Vaccination Armando: 01/08 Third COVID19 Vaccination Date: 11/08 Seasonal Allergies Seasonal Allergies: No Past Medical History Surgery/Hospitalization HX: PMH: DM INSULIN DEP, HTN, HIGH CHOL, SCHIZOEFFECTIVE, ADHD, ANXIETY Surgeries: Yes (I&D OF ABSCESS TO CHIN/NECK AREA) Respiratory: No Currently Using CPAP: No Currently Using BIPAP: No Cardiac: No High Cholesterol, Hypertension Neurological: No Genitourinary: No Gastrointestinal: Yes (HEPATITIS--UNKNOWN TYPE) Liver Disease/Jaundice, Hepatitis Musculoskeletal: No Endocrine: Yes (TYPE 1 DIABETES-NONCOMPLIANT IN ALL ASPECTS OF CARE) Diabetes, Insulin dep HEENT: No Loss of Vision: Denies Hearing Impairment: Denies Cancer: No Psychosocial: Yes (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) ADD/ADHD, Anxiety, Suicide Attempts, Bipolar, Schizophrenia, Depression Integumentary: Yes (HX OF MRSA; ABSCESSES) Blood Disorders: No Family Medical History Alcoholism G8 BROTHER Arthritis Asthma 19 MOTHER (copd & hypotention) Cardiovascular disease 19 FATHER (cva) Completed stroke 19 FATHER Hypercholesterolemia 19 FATHER G8 SISTER Hypertension 19 FATHER Thyroid disease G8 SISTER (hyperthyroid) CAD Under 55 Years Old, Diabetes, Hypertension, Stroke SOCIAL HISTORY: -HX OF ALCOHOL ABUSE, NOW ONLY "OCCASIONALLY" USES -DRUGS--EXTENSIVE IV METH USE, HX OF IV COCAINE USE, THC USE -SMOKES 1 PPD MULTIPLE PSYCH ADMITS Physical Exam-Suspected Sepsis Physical Exam Vital Signs Vital Signs - First Documented 11/21/21 14:36 Pulse 106 Resp 20 B/P (MAP) 154/79 (104) Pulse Ox 98 O2 Delivery Room Air Capillary Refill : Less Than 3 Seconds Blood Pressure Mean: 104 Height, Weight, BMI Height: 5'8.00" Weight: 162lbs. 1.6oz. 73.160172kb; 21.00 BMI Method:Stated General Appearance: No Apparent Distress, WD/WN HEENT: PERRL/EOMI, Normal ENT Inspection Neck: Normal Inspection Respiratory: Lungs Clear, Normal Breath Sounds, No Accessory Muscle Use Cardiovascular: No Edema, No Murmur, Tachycardia Gastrointestinal: Non Tender, Soft Extremity: Other (Right foot has puffy edema and bright red erythema extending up to the ankle. There is streaking on the anterior surface extending past the mid lower leg.) Neurologic/Psychiatric: Alert, Oriented x3, No Motor/Sensory Deficits, Normal Mood/Affect, wringer and setter II-XII Norm as Tested Skin: warm/dry, other (See above) Focused Exam Lactate Level 11/21/21 15:30: Lactic Acid Level 1.85 Lactic Acid Level Laboratory Tests Test 11/21/21 15:30 Lactic Acid Level 1.85 MMOL/L (0.50-2.00) Procedures/Interventions Date of ETT Placement: Nov 03, 2021 Time of ETT Placement: 829 Progress/Results/Core Measures Suspected Sepsis SIRS Temperature: Pulse: 106 Respiratory Rate: 20 Laboratory Tests 11/21/21 15:30: White Blood Count 15.7H Blood Pressure 154 /79 Mean: 104 11/21/21 15:30: Lactic Acid Level 1.85 Laboratory Tests 11/21/21 15:30: Creatinine 1.04, INR Comment 1.1, Platelet Count 555H, Total Bilirubin 0.2 Results/Orders Lab Results Laboratory Tests Test 11/21/21 15:30 11/21/21 16:00 Range/Units White Blood Count 15.7 H 4.3-11.0 10^3/uL Red Blood Count 4.02 L 4.30-5.52 10^6/uL Hemoglobin 12.1 L 13.3-17.7 g/dL Hematocrit 37 L 40-54 % Mean Corpuscular Volume 91 80-99 fL Mean Corpuscular Hemoglobin 30 25-34 pg Mean Corpuscular Hemoglobin Concent 33 32-36 g/dL Red Cell Distribution Width 14.2 10.0-14.5 % Platelet Count 555 H 130-400 10^3/uL Mean Platelet Volume 10.7 9.0-12.2 fL Immature Granulocyte % (Auto) 0 % Neutrophils (%) (Auto) 81 H 42-75 % Lymphocytes (%) (Auto) 13 12-44 % Monocytes (%) (Auto) 5 0-12 % Eosinophils (%) (Auto) 1 0-10 % Basophils (%) (Auto) 0 0-10 % Neutrophils # (Auto) 12.6 H 1.8-7.8 X 10^3 Lymphocytes # (Auto) 2.0 1.0-4.0 X 10^3 Monocytes # (Auto) 0.8 0.0-1.0 X 10^3 Eosinophils # (Auto) 0.1 0.0-0.3 10^3/uL Basophils # (Auto) 0.1 0.0-0.1 10^3/uL Immature Granulocyte # (Auto) 0.0 0.0-0.1 10^3/uL Neutrophils % (Manual) 79 % Lymphocytes % (Manual) 13 % Monocytes % (Manual) 7 % Eosinophils % (Manual) 1 % Blood Morphology Comment NORMAL Prothrombin Time 14.1 12.2-14.7 SEC INR Comment 1.1 0.8-1.4 Activated Partial Thromboplast Time 32 24-35 SEC Sodium Level 138 135-145 MMOL/L Potassium Level 4.3 3.6-5.0 MMOL/L Chloride Level 103 98-107 MMOL/L Carbon Dioxide Level 21 21-32 MMOL/L Anion Gap 14 5-14 MMOL/L Blood Urea Nitrogen 17 7-18 MG/DL Creatinine 1.04 0.60-1.30 MG/DL Estimat Glomerular Filtration Rate 93 BUN/Creatinine Ratio 16 Glucose Level 332 H 70-105 MG/DL Lactic Acid Level 1.85 0.50-2.00 MMOL/L Calcium Level 9.2 8.5-10.1 MG/DL Corrected Calcium 9.7 8.5-10.1 MG/DL Total Bilirubin 0.2 0.1-1.0 MG/DL Aspartate Amino Transf (AST/SGOT) 9 5-34 U/L Alanine Aminotransferase (ALT/SGPT) 13 0-55 U/L Alkaline Phosphatase 85 40-136 U/L Total Protein 6.8 6.4-8.2 GM/DL Albumin 3.4 3.2-4.5 GM/DL My Orders Orders - EMELI BURGOS MD Cbc With Automated Diff (11/21/21 15:13) Comprehensive Metabolic Panel (11/21/21 15:13) Blood Culture (11/21/21 15:13) Urinalysis (11/21/21 15:13) Urine Culture (11/21/21 15:13) Protime With Inr (11/21/21 15:13) Partial Thromboplastin Time (11/21/21 15:13) Ed Iv/Invasive Line Start (11/21/21 15:13) Vital Signs Adult Sepsis Patie Q15M (11/21/21 15:13) Remove Rings In Anticipation O (11/21/21 15:13) Lactic Acid Analyzer (11/21/21 15:13) Lactated Ringers (Lr 1000 Ml Iv Solution (11/21/21 15:15) Ketorolac Injection (Toradol Injection) (11/21/21 15:30) Manual Differential (11/21/21 15:30) Hs C Reactive Protein (11/21/21 16:07) Procalcitonin (Pct) (11/21/21 16:07) Piperacillin Sodium/Tazobactam (Zosyn Vi (11/21/21 16:15) Vancomycin Injection (Vancomycin Injecti (11/21/21 16:15) Vancomycin Injection (Vancomycin Injecti (11/21/21 17:15) Medications Given in ED Current Medications Medications Dose Ordered Sig/Andre Route Start Time Stop Time Status Last Admin Dose Admin Ketorolac Tromethamine 30 mg ONCE ONCE IVP 11/21/21 15:30 11/21/21 15:31 DC 11/21/21 15:30 30 MG Lactated Ringer's 1,000 ml @ 0 mls/hr Q0M ONCE IV 11/21/21 15:15 11/21/21 15:20 DC 11/21/21 15:31 0 MLS/HR Vital Signs/I&O 11/21/21 14:36 Pulse 106 Resp 20 B/P (MAP) 154/79 (104) Pulse Ox 98 O2 Delivery Room Air Capillary Refill : Less Than 3 Seconds Blood Pressure Mean: 104 Progress Note : Time: 16:24 Progress Note Patient received Toradol for pain. IV fluids are infusing. Labs were obtained and he was found to have leukocytosis. Antibiotic therapy with Zosyn and vancomycin has been ordered. Case was discussed with Dr. Britt who agrees with admission for cellulitis refractory to outpatient therapy. Departure Communication (Admissions) Time/Spoke to Admitting Phy: 16:15 Dr. Britt Time/Spoke to Consulting Phy: 16:15 Dr. Bowie Impression Primary Impression: Cellulitis of right foot Additional Impression: DM type 1 (diabetes mellitus, type 1) Qualified Codes: E10.69 - Type 1 diabetes mellitus with other specified complication Disposition: ADMITTED INPATIENT Condition: Stable Admissions Decision to Admit Reason: Admit from ER (General) Decision to Admit/Date: Nov 21, 2021 Time/Decision to Admit Time: 16:15 Departure-Patient Inst. Referrals: [facility] (PCP/Family) Primary Care Physician Copy Copies To 1: MANOHAR BOCANEGRA JOSHUA T MD Nov 21, 2021 16:01
[2021-11-21 16:09] LABS: BILIRUBIN,URINE NEGATIVE (NEGATIVE); CLARITY,URINE CLEAR; COLOR,URINE YELLOW; GLUCOSE, URINE (UA) 3+ (NEGATIVE); KETONES,URINE NEGATIVE (NEGATIVE); LEUKOCYTE ESTERASE ,URINE NEGATIVE (NEGATIVE); NITRITE,URINE NEGATIVE (NEGATIVE); PH,URINE 5.5 (5-9); PROTEIN,URINE NEGATIVE (NEGATIVE)
[2021-11-21] MEDS ORDERED: VANCOMYCIN INJECTION 750 MG in NS (IVPB) 100 ML IV ONE (16:15)
[2021-11-21] MEDS ORDERED: PIPERACILLIN SODIUM/TAZOBACTAM 4.5 GM in NS (IVPB) 100 ML IV ONE (16:15)
[2021-11-21 16:16] LABS: BACTERIA,URINE NEGATIVE /HPF; SQUAMOUS EPITHELIAL CELL,UR RARE /HPF; WBC,URINE 0-2 /HPF
[2021-11-21] MEDS ORDERED: VANCOMYCIN 1500 MG/NS 500 ML IVPB IV ONE ×2 (17:00)
[2021-11-21] MEDS ORDERED: VANCOMYCIN INJECTION 500 MG in NS (IVPB) 100 ML IV ONE (17:15)
[2021-11-21] MEDS ORDERED: MELATONIN 3 MG TABLET PO PRN (17:30)
[2021-11-21] MEDS ORDERED: diphenhydrAMINE 25 MG TAB (BENADRYL) PO PRN (17:30)
[2021-11-21] MEDS ORDERED: VANCOMYCIN INJECTION 0.1 MG in NS (IVPB) 250 ML IV SCH (17:30)
[2021-11-21] MEDS ORDERED: LACTULOSE SYRUP 10GM/15ML (ENULOSE) 30ML UDC PO PRN (17:30)
[2021-11-21] MEDS ORDERED: CALCIUM CARBONATE 500 MG (TUMS) TAB.CHEW PO PRN (17:30)
[2021-11-21] MEDS ORDERED: morphine INJ 4 MG/ML 1 ML (VIAL/SYRINGE) IV PRN (17:30)
[2021-11-21] MEDS ORDERED: ANTACID SUSP 30 ML UDC (MYLANTA) PO PRN (17:30)
[2021-11-21] MEDS ORDERED: ONDANSETRON 4 MG (ZOFRAN) ORAL DISSOLVE TAB PO PRN (17:30)
[2021-11-21] MEDS ORDERED: polyethylene glycoL POWDER 17 GM (MIRALAX) PACK PO PRN (17:30)
[2021-11-21] MEDS ORDERED: MILK OF MAGNESIA 400 MG/5 ML 30 ML UDC PO PRN (17:30)
[2021-11-21] MEDS ORDERED: BISACODYL 10 MG SUPP (DULCOLAX) PR PRN (17:30)
[2021-11-21] MEDS ORDERED: ONDANSETRON 4 MG/2 ML (SDV) Z0FRAN IV PRN (17:30)
[2021-11-21] MEDS ORDERED: diphenhydrAMINE 50 MG/ML INJ (BENADRYL) IVP PRN (17:30)
[2021-11-21 17:35] VITALS: BP 144/79
[2021-11-21] MEDS: NS IV 1000 ML 1,000 ML IV SCH (17:46)
[2021-11-21] MEDS ORDERED: VANCOMYCIN 1 GM/NS 250 ML IVPB IV SCH ×2 (18:00)
[2021-11-21] MEDS ORDERED: RT-ALBUTEROL/IPRATROPIUM 3 ML (DUONEB) VIAL INH PRN (18:15)
[2021-11-21] MEDS: PIPERACILLIN SODIUM/TAZOBACTAM 4.5 GM in NS (IVPB) 100 ML IV SCH (18:25)
--- NOTE | 2021-11-21 19:33 | CONSULTATION REPORT ---
DATE OF SERVICE: ATTENDING PRIMARY INSPECTOR WIRE ROPE: [facility]. HISTORY OF PRESENT ILLNESS: The patient is a 41-year-old male who presented to the Emergency Department with right foot swelling, pain as well as drainage. He was seen at the [facility] yesterday and received an intramuscular Rocephin and also started on doxycycline p.o. Despite his antibiotic therapy, there is worsening erythema, swelling as well as pain. He does have a number of medical comorbidities as well as history of noncompliance. He was admitted 10/2021 with respiratory failure from methamphetamine withdrawal. He also presented on 11/13/2021 for pancreatitis and hyperglycemia. He also is for the most part homeless. Upon examination, there is redness and swelling along the right foot with some streaking along the ankle. There does not appear to be any fluctuance to indicate any abscess. PAST MEDICAL HISTORY: Insulin-dependent diabetes, history of drug abuse. Also, hepatitis, bipolar disorder, hypercholesterolemia, hypertension, history of respiratory failure. PAST SURGICAL HISTORY: Incision and drainage of chin abscess. ALLERGIES: No known drug allergies. MEDICATIONS: Aspartate insulin 7 units before every meal, glargine insulin 25 units daily and 20 units at bedtime. SOCIAL HISTORY: Positive smoke. Positive alcohol. History of methamphetamine use. FAMILY HISTORY: Noncontributory. VITAL SIGNS: Temperature 36.9, blood pressure 144/79, pulse 97, respirations 16, pulse ox 97% on room air. REVIEW OF SYSTEMS: This is a well-nourished male, currently in no acute distress. He is not experiencing any shortness of breath or difficulty breathing. No cough or sputum production. No nausea, vomiting, no diarrhea or constipation, no red blood per rectum, no dark tarry stools. No fever, chills, no recent inadvertent weight loss. All other review of systems negative. PHYSICAL EXAMINATION: CHEST: Distant breath sounds bilaterally with few expiratory wheezes. HEART: Regular, no murmurs. EXTREMITIES: He does have edema of the right foot, negative Homans sign bilaterally. HEENT: No scleral icterus. NECK: No cervical lymphadenopathy. ABDOMEN: Soft, nontender, nondistended. SKIN: There is redness and swelling of the right forefoot with some streaking moving cephalad over the ankle. LABORATORY DATA: WBC 15.7, hemoglobin 12.1, hematocrit 37, platelets 555. BUN 17, creatinine 1.04, glucose 332. Liver function enzymes normal. ASSESSMENT AND PLAN: A 41-year-old male with right foot cellulitis. History of diabetes as well as drug abuse and medical noncompliance. At this time, there appears to be cellulitis with failed outpatient therapy and he will be admitted and started on IV antibiotics. We will continue to monitor the extremity for any fluctuance that may indicate any abscess that may need to be drained. Job ID: [id number] DocumentID: [id number] Dictated Date: 11/21/2021 18:45:15 Bioinformatics Specialist Date: 11/21/2021 19:32:21 Dictated By: MELA HOLCOMB MD
[2021-11-21 19:41] VITALS: BP 137/71
[2021-11-21] MEDS: ACETAMINOPHEN 325 MG TABLET PO PRN (20:06)
[2021-11-21] MEDS: DOCUSATE SODIUM 100 MG (COLACE) CAP PO SCH (20:55)
[2021-11-21] MEDS: SENNOSIDES 8.6 MG (SENOKOT) TAB PO SCH (20:55)
[2021-11-21] MEDS: inSUlin ASPART (NovoLOG) 1 UNIT/0.01 ML (CHARGE PER UNIT) SC SCH (20:59)
[2021-11-21] MEDS: LORazepam 1 MG (ATIVAN) TAB PO PRN (22:44)
[2021-11-22] VITALS: BP 157/80
[2021-11-22] MEDS: ACETAMINOPHEN 325 MG TABLET PO PRN ×3 (00:30→14:01)
[2021-11-22] MEDS: PIPERACILLIN SODIUM/TAZOBACTAM 4.5 GM in NS (IVPB) 100 ML IV SCH ×3 (02:02→17:19)
[2021-11-22 04:00] VITALS: BP 146/77
[2021-11-22 06:06] LABS: BASOPHILS # (AUTO) 0.1 10^3/uL (0.0-0.1); BASOPHILS % (AUTO) 1 % (0-10); EOSINOPHILS # (AUTO) 0.2 10^3/uL (0.0-0.3); EOSINOPHILS % (AUTO) 1 % (0-10); HEMATOCRIT 36 % (40-54); HEMOGLOBIN 11.6 g/dL (13.3-17.7); LYMPHOCYTES # (AUTO) 2.1 10^3/uL (1.0-4.0); LYMPHOCYTES % (AUTO) 13 % (12-44); MEAN CORPUSCULAR HEMOGLOBIN 30 pg (25-34); MEAN CORPUSCULAR HGB CONC 32 g/dL (32-36); MEAN CORPUSCULAR VOLUME 92 fL (80-99); MEAN PLATELET VOLUME 11.2 fL (9.0-12.2); MONOCYTES # (AUTO) 0.7 10^3/uL (0.0-1.0); MONOCYTES % (AUTO) 5 % (0-12); NEUTROPHILS # (AUTO) 12.6 10^3/uL (1.8-7.8); NEUTROPHILS % (AUTO) 80 % (42-75); PLATELET COUNT 459 10^3/uL (130-400); WHITE BLOOD COUNT 15.7 10^3/uL (4.3-11.0)
[2021-11-22 06:20] LABS: POTASSIUM 4.3 MMOL/L (3.6-5.0)
[2021-11-22 06:22] LABS: CALCIUM 8.4 MG/DL (8.5-10.1)
[2021-11-22 06:24] LABS: BILIRUBIN,TOTAL 0.6 MG/DL (0.1-1.0)
[2021-11-22 06:26] LABS: CREATININE SERUM 0.96 MG/DL (0.60-1.30)
[2021-11-22] MEDS: VANCOMYCIN 1 GM/NS 250 ML IVPB IV SCH ×4 (06:43→17:20)
[2021-11-22] MEDS: inSUlin ASPART (NovoLOG) 1 UNIT/0.01 ML (CHARGE PER UNIT) SC SCH ×7 (06:44→21:30)
[2021-11-22] MEDS: NS IV 1000 ML 1,000 ML IV SCH (06:47)
[2021-11-22 08:00] VITALS: BP 173/85
[2021-11-22] MEDS: SENNOSIDES 8.6 MG (SENOKOT) TAB PO SCH ×2 (08:50→20:14)
[2021-11-22] MEDS: DOCUSATE SODIUM 100 MG (COLACE) CAP PO SCH ×2 (08:50→20:14)
--- NOTE | 2021-11-22 09:35 | Physical Therapy Progress Note ---
Therapy Progress Note Patient adamantly refused PT then got up independently after PT left room with bed alarm activated and PT answering call light due to bed alarm. RN notified. No skilled PT indicated. 1 ref JESSICA WORLEY PT Nov 22, 2021 09:35
[2021-11-22] MEDS ORDERED: amLODIPine 5 MG (NORVASC) TAB PO NR (11:00)
[2021-11-22] MEDS ORDERED: LORazepam 1 MG (ATIVAN) TAB PO NR (11:00)
[2021-11-22] MEDS ORDERED: cloNIDine 0.1 MG (CATAPRES) TAB PO PRN (11:00)
--- NOTE | 2021-11-22 11:16 | Occupational Therapy Eval ---
OT Evaluation-General/PLF Medical Diagnosis Admission Date Nov 21, 2021 at 16:37 Medical Diagnosis: cellulitus of R foot Onset Date: Nov 21, 2021 Therapy Diagnosis Therapy Diagnosis: decreased fine motor coordiantion, impaired ADLs. Height/Weight Height (Feet): 5 Height (Inches): 8.00 Weight (Pounds): 162 Weight (Ounces): 1.6 Precautions Precautions/Isolations: Standard Precautions Referral Physician: Balwinder Referral Reason: Evaluation/Treatment Medical History Additional Medical History Insulin-dependent diabetes, history of drug abuse. Also, hepatitis, bipolar disorder, hypercholesterolemia, hypertension, history of respiratory failure. Current History ED due to R foot swelling, pain and redness Social History Current Living Status: Homeless ADL-Prior Level of Function SCALE: Activities may be completed with or without assistive devices. 8-Hhorbubjax-qohuavl completes the activity by him/herself with no assistance from a helper. 5-Set-up or Clean-up Assistance-helper sets up or cleans up; patient completes activity. [place] assists only prior to or following the activity. 4-Supervision or Touching Assistance-helper provides verbal cues and/or touching/steadying and/or contact guard assistance as patient completes activity. Assistance may be provided throughout the activity or intermittently. 3-Partial/Moderate Assistance-helper does LESS THAN HALF the effort. [place] lifts, holds or supports trunk or limbs, but provides less than half the effort. 2-Substantial/Maximal Assistance-helper does MORE THAN HALF the effort. [place] lifts or holds trunk or limbs and provides more than half the effort. 0-Zbdmmzyyn-nvjfxw does ALL the effort. Patient does none of the effort to complete the activity. Or, the assistance of 2 or more helpers is required for the patient to complete the activity. If activity was not attempted, code reason: 7-Patient Refused. 9-Not Applicable-not attempted and the patient did not perform the activity before the current illness, exacerbation or injury. 10-Not Attempted due to Environmental Limitations-(lack of equipment, weather restraints, etc.). 88-Not Attempted due to Medical Conditions or Safety Concerns. ADL PLOF Comments Pt reports IND with ADLs and functional mobility at PLOF, no AD. Self Care: Independent Functional Cognition: Independent OT Current Status Subjective Pt laying in bed, shaking. OT asked pt if he was cold, and he said he was shaking as a way to cope with pain. 7/10 pain reported. Mental Status/Objective Patient Orientation: Person, Place, Situation Attachments: IV Current Upper Extremity ROM WFL Upper Extremity Coordination decreased fine motor coordination due to numbness. He reports difficulty with buttons on jeans Upper Extremity Sensation tingling/numbness bilateral hands and fingertips. Pt reports all fingers involved. Pt states this issue happened to him a couple of years ago, resolved. And recently has started again. ADL-Treatment Eating (QC): 5 (Per pt report, some difficulty with cutting food due to decreased sensation) Oral Hygiene (QC): 5 (Per clinical judgment.) Other Treatments Pt laying in bed, agreeable to OT tx. Pt provides information about PLOF, states he doesn't really have anywhere to live. Pt states he has no concerns with completing showering, toileting, UB dressing. He does have difficulty with fine motor due to numbness in hands, and difficulty buttoning his pants. OT discussed modifications, including switching to elastic waist pants, he verbalized understanding and agreement. He states he is able to manage eating, but does have some difficulty with cutting his food. Pt agreeable to OT POC including focus on fine motor coordination and activity modification to increase self care performance. Post tx, pt in bed, call light in reach and all needs met. Education OT Patient Education: Correct positioning, Energy conservation, Modified ADL techniques, Progress toward Goal/Update tx plan, Purpose of tx/functional activities, Rehab process Teaching Recipient: Patient Teaching Methods: Discussion Response to Teaching: Verbalize Understanding OT Half-Way Goals Motor Patrol Operator Goals Time Frame: Dec 01, 2021 Eating (QC): 6 Oral Hygiene (QC): 6 Toileting Hygiene (QC): 6 Lower Body Dressing (QC): 6 Additional Goals: 1-Demonstrate ADL Tasks, 2-Verbalize Understanding, 3- ImproveStrength/Lesly 1=Demonstrate adherence to instructed precautions during ADL tasks. 2=Patient will verbalize/demonstrate understanding of assistive devices/modifications for ADL. 3=Patient will improve strength/tolerance for activity to enable patient to perform ADL's. OT Education/Plan Problem List/Assessment Assessment: Decreased Activ Tolerance, Decreased UE Strength, Impaired Coordination, Impaired I ADL's Discharge Recommendations Plan/Recommendations: Continue POC Treatment Plan/Plan of Care Patient would benefit from OT for education, treatment and training to promote independence in ADL's, mobility, safety and/or upper extremity function for ADL's. Plan of Care: ADL Retraining, Functional Mobility, UE Funct Exercise/Act Treatment Duration: Dec 01, 2021 Frequency: 3 times per week (3-5 times per week) Estimated Hrs Per Day: .25 hour per day Agreement: Yes Rehab Potential: Fair Time/GCodes Start Time: 10:44 Stop Time: 10:55 Total Time Billed (hr/min): 11 Billed Treatment Time 1, GRACE GALEAS OT Nov 22, 2021 11:16
[2021-11-22 12:00] VITALS: BP 148/73
--- NOTE | 2021-11-22 12:04 | History & Physical-Hospitalist ---
HAILEE GIL 11/22/21 1204: History of Present Illness HPI/Chief Complaint The patient is a 41 YO male with a PMH of type 1 DM and substance use disorder who presented to ED at [facility] in [place] on 11/21/21 due to complaints of an infected R foot. He was seen at the [facility] clinic the day before his ED visit and was given a Rocephin injection and was Rx'd oral Doxycycline which he took 4 PO worth of the antibiotic. The patient reports that he believes his infected foot was the result of an untreated athlete's foot that resulted in cracked skin between the toes, and that the infection possibly started around 1 week ago. Today the patient appeared to be in minor distress, and reported that his pain was between a 7-8 out of 10. Date Seen 11/22/21 Time Seen by a Provider: 08:45 Attending Physician Audrey Britt DO [facility] Referring Physician Date of Admission Nov 21, 2021 at 16:37 Home Medications & Allergies Home Medications Reviewed patient Home Medication Reconciliation performed by pharmacy medication reconciliations radiocommunications technician and/or nursing. Patients Allergies have been reviewed. Allergies Allergies Coded Allergies No Known Drug Allergies (Unverified12/02/13) Past Iepwglp-Txjfiv-Eewgnf Hx Patient Social History Tobacco Use?: Yes Tobacco type used: Cigarettes Smoking Status: Former Smoker Use of E-Cig and/or Vaping dev: No Substance use?: Yes Substance type: Methamphetamine, Marijuana Additional substance use comme: past hx of meth Substance frequency: Several times a month Alcohol Use?: No Pt feels they are or have been: Yes Immunizations Up To Date First/Initial COVID19 Vaccinat: 11/08 Second COVID19 Vaccination Armando: 01/08 Tetanus Booster (TDap): Less Than 5 Years Hepatitis A: No Hepatitis B: No Seasonal Allergies Seasonal Allergies: No Current Status Advance Directives: No Communicates: Verbally Primary Language: Romanian Preferred Spoken Language: Romanian Implanted or Applied Medical D: None Past Medical History Currently Using CPAP: No Currently Using BIPAP: No High Cholesterol, Hypertension Liver Disease/Jaundice, Hepatitis Diabetes, Insulin dep Loss of Vision: Denies Hearing Impairment: Denies ADD/ADHD, Anxiety, Suicide Attempts, Bipolar, Schizophrenia, Depression Blood Disorders: No PMHx: DMI Schizoaffective Depression Family Medical History Alcoholism G8 BROTHER Arthritis Asthma 19 MOTHER (copd & hypotention) Cardiovascular disease 19 FATHER (cva) Completed stroke 19 FATHER Hypercholesterolemia 19 FATHER G8 SISTER Hypertension 19 FATHER Thyroid disease G8 SISTER (hyperthyroid) CAD Under 55 Years Old, Diabetes, Hypertension, Stroke SOCIAL HISTORY: -HX OF ALCOHOL ABUSE, NOW ONLY "OCCASIONALLY" USES -DRUGS--EXTENSIVE IV METH USE, HX OF IV COCAINE USE, THC USE -SMOKES 1 PPD MULTIPLE PSYCH ADMITS Review of Systems Constitutional: No chills, No fever EENTM: No blurred vision, No double vision, No vision loss Respiratory: No cough, No dyspnea on exertion Cardiovascular: No chest pain, No edema Gastrointestinal: No abdominal pain, No nausea, No vomiting Genitourinary: No dysuria, No pain Musculoskeletal: joint pain (R foot and ankle ); No muscle pain Skin: other (erythema of R foot ) Psychiatric/Neurological: Anxiety; Denies Depressed Physical Exam Physical Exam Vital Signs Vital Signs - First Documented 11/21/21 11/21/21 11/21/21 14:36 17:35 18:10 Temp 36.9 Pulse 106 Resp 20 B/P (MAP) 154/79 (104) Pulse Ox 98 O2 Delivery Room Air FiO2 21 Capillary Refill : Less Than 3 Seconds Height, Weight, BMI Height: 5'8.00" Weight: 162lbs. 1.6oz. 73.061860il; 20.50 BMI Method:Stated General Appearance: Anxious, Mild Distress Eyes: Bilateral Eye Normal Inspection, Bilateral Eye PERRL, Bilateral Eye EOMI HEENT: PERRL/EOMI, Pharynx Normal, Moist Mucous Membranes Neck: Full Range of Motion, Normal Inspection, Non Tender, Supple Respiratory: Chest Non Tender, Lungs Clear, Normal Breath Sounds, No Accessory Muscle Use, No Respiratory Distress Cardiovascular: Regular Rate, Rhythm, No Edema, No Gallop, No JVD, No Murmur, Normal Peripheral Pulses Gastrointestinal: Normal Bowel Sounds, No Organomegaly, No Pulsatile Mass, Non Tender, Soft Extremity: Swelling (R foot and ankle ), Other (erythema of) Neurologic/Psychiatric: Alert, Oriented x3, No Motor/Sensory Deficits, Other (anxious ) Skin: Erythema (of R foot ) Lymphatic: No Adenopathy Results Results/Procedures Labs Laboratory Tests 11/21/21 15:30 11/22/21 05:44 Patient resulted labs reviewed. Assessment/Plan Admission Diagnosis Cellulitis of R foot Assessment and Plan Assessment: Cellulitis of R foot Substance use disorder DM Type 1 Plan: Cellulitis of R foot Continue on IV Vancomycin and Zosyn. Appreciate surgery, following to monitor for abscess. Substance use disorder Ativan as needed. DM Type 1 Continue Insulin Aspart. Clinical Quality Measures DVT/VTE Risk/Contraindication: Contraindications-Mechi: Other *list below* Other: cellulitis of lower leg AUDREY BRITT 11/23/21 0525: History of Present Illness HPI/Chief Complaint CC: Cellulitis right foot HPI: 41 yr old WM with multiple hospital stays due to meth use. He presented to the ER with right foot pain and swelling. Pt was found to have right foot cellulitis and considering his type 1 diabetic status he was admitted for broad- spectrum antibiotics of Zosyn and Vancomycin. Dr. Bowie was consulted. Source: patient Exam Limitations: no limitations Past Nmrjsyc-Ekppcj-Falzau Hx Patient Social History Marrital Status: single Employed/Student: unemployed Smoking Status: Current Everyday Smoker Past Medical History Diabetes, Insulin dep Family Medical History Alcoholism G8 BROTHER Arthritis Asthma 19 MOTHER (copd & hypotention) Cardiovascular disease 19 FATHER (cva) Completed stroke 19 FATHER Hypercholesterolemia 19 FATHER G8 SISTER Hypertension 19 FATHER Thyroid disease G8 SISTER (hyperthyroid) Review of Systems Constitutional: see HPI EENTM: no symptoms reported Respiratory: no symptoms reported Cardiovascular: no symptoms reported Gastrointestinal: no symptoms reported Genitourinary: no symptoms reported Musculoskeletal: no symptoms reported Skin: see HPI Psychiatric/Neurological: Anxiety All Other Systems Reviewed Negative Unless Noted: Yes Physical Exam Physical Exam General Appearance: Anxious, Chronically ill, Mild Distress Eyes: Right Eye Normal Inspection, Right Eye PERRL HEENT: PERRL/EOMI, Normal ENT Inspection, Pharynx Normal, Moist Mucous Membranes Neck: Full Range of Motion, Normal Inspection, Non Tender Respiratory: Chest Non Tender, Lungs Clear, Normal Breath Sounds, No Accessory Muscle Use, No Respiratory Distress Cardiovascular: Regular Rate, Rhythm, No Edema, No Gallop, No JVD, No Murmur, Normal Peripheral Pulses Gastrointestinal: Normal Bowel Sounds, No Organomegaly, No Pulsatile Mass, Non Tender, Soft Back: Normal Inspection, No CVA Tenderness, No Vertebral Tenderness Extremity: Normal Capillary Refill, Normal Inspection, Normal Range of Motion, Non Tender, No Calf Tenderness, No Pedal Edema Neurologic/Psychiatric: Alert, Oriented x3, No Motor/Sensory Deficits, Normal Mood/Affect Skin: Normal Color, Warm/Dry, Erythema (of R foot ) Lymphatic: No Adenopathy Assessment/Plan Admission Diagnosis Assessment: Right foot cellulitis Meth use Meth withdrawal with anxiety Type 1 diabetes Plan: Antibiotics Supportive care Admission Status: Inpatient Order (span 2 midnights) Reason for Inpatient Admission: Cellulitis with type 1 diabetes and meth withdrawal Supervisory-Addendum Brief Verification & Attestation Participated in pt care: history, MDM, physical Personally performed: exam, history, MDM, supervision of care Care discussed with: Medical Student Procedures: n/a Results interpretation: Verified all documentation Verification and Attestation of Medical Student E/M Service A medical student performed and documented this service in my presence. I reviewed and verified all information documented by the medical student and made modifications to such information, when appropriate. I personally performed the physical exam and medical decision making. Audrey Britt Nov 23, 2021,05:25 HAILEE GIL Nov 22, 2021 12:04 AUDREY BRITT DO Nov 23, 2021 05:25
[2021-11-22] MEDS ORDERED: IBUP-2473 PO (12:25)
[2021-11-22] MEDS ORDERED: INSU100I10 SQ ×2 (12:26)
[2021-11-22 15:53] VITALS: BP 141/69
[2021-11-22] MEDS: LORazepam 1 MG (ATIVAN) TAB PO PRN ×2 (16:01→20:14)
[2021-11-22 19:44] VITALS: BP 156/88
[2021-11-23] VITALS (7 sets, daily range): BP systolic 109–154; BP diastolic 62–92
[2021-11-23] MEDS: LORazepam 1 MG (ATIVAN) TAB PO PRN ×5 (00:18→20:40)
[2021-11-23] MEDS: PIPERACILLIN SODIUM/TAZOBACTAM 4.5 GM in NS (IVPB) 100 ML IV SCH ×3 (01:48→18:26)
[2021-11-23] MEDS ORDERED: TROUGH ORDER-PHARMACY XX NR (05:00)
[2021-11-23 05:29] LABS: BASOPHILS # (AUTO) 0.1 10^3/uL (0.0-0.1); BASOPHILS % (AUTO) 1 % (0-10); EOSINOPHILS # (AUTO) 0.2 10^3/uL (0.0-0.3); EOSINOPHILS % (AUTO) 1 % (0-10); HEMATOCRIT 39 % (40-54); HEMOGLOBIN 13.1 g/dL (13.3-17.7); LYMPHOCYTES # (AUTO) 2.4 10^3/uL (1.0-4.0); LYMPHOCYTES % (AUTO) 17 % (12-44); MEAN CORPUSCULAR HEMOGLOBIN 30 pg (25-34); MEAN CORPUSCULAR HGB CONC 33 g/dL (32-36); MEAN CORPUSCULAR VOLUME 90 fL (80-99); MEAN PLATELET VOLUME 11.1 fL (9.0-12.2); MONOCYTES # (AUTO) 0.7 10^3/uL (0.0-1.0); MONOCYTES % (AUTO) 5 % (0-12); NEUTROPHILS # (AUTO) 10.8 10^3/uL (1.8-7.8); NEUTROPHILS % (AUTO) 76 % (42-75); PLATELET COUNT 461 10^3/uL (130-400); WHITE BLOOD COUNT 14.3 10^3/uL (4.3-11.0)
[2021-11-23 05:37] LABS: ALBUMIN 3.3 GM/DL (3.2-4.5)
[2021-11-23 05:38] LABS: POTASSIUM 4.9 MMOL/L (3.6-5.0)
[2021-11-23 05:39] LABS: CALCIUM 8.9 MG/DL (8.5-10.1)
[2021-11-23 05:40] LABS: TOTAL PROTEIN 6.7 GM/DL (6.4-8.2)
[2021-11-23 05:42] LABS: BILIRUBIN,TOTAL 0.5 MG/DL (0.1-1.0)
[2021-11-23 05:44] LABS: CREATININE SERUM 0.91 MG/DL (0.60-1.30)
[2021-11-23] MEDS: inSUlin ASPART (NovoLOG) 1 UNIT/0.01 ML (CHARGE PER UNIT) SC SCH ×7 (06:29→20:15)
[2021-11-23] MEDS: VANCOMYCIN 1 GM/NS 250 ML IVPB IV SCH ×6 (06:29→22:27)
[2021-11-23] MEDS: SENNOSIDES 8.6 MG (SENOKOT) TAB PO SCH ×2 (08:38→20:37)
[2021-11-23] MEDS: amLODIPine 5 MG (NORVASC) TAB PO SCH (08:38)
[2021-11-23] MEDS: DOCUSATE SODIUM 100 MG (COLACE) CAP PO SCH ×2 (08:38→20:37)
[2021-11-23] MEDS ORDERED: inSUlin (REGULAR) HUMAN 1 UNIT/0.01 ML (CHARGE PER UNIT) SC ONE (10:30)
[2021-11-23] MEDS ORDERED: inSUlin (REGULAR) HUMAN 1 UNIT/0.01 ML (CHARGE PER UNIT) SC PRN (10:30)
[2021-11-23] MEDS: ACETAMINOPHEN 325 MG TABLET PO PRN ×3 (10:59→23:32)
--- NOTE | 2021-11-23 11:12 | Occ Therapy Progress Note ---
Therapy Progress Note ZHENG introduced self to pt. Pt politely stated that he did not need or want Occupational Therapy. ZHENG reminded pt that he was concerned with numbness/tingling in fingers during evaluation yesterday. Pt stated that he was okay and did not need anything. ZHENG asked if pt would like nerve glides for numbness and tingling. Pt declined but stated that he usually used squeeze ball. ZHENG asked if he would like a therapy sponge to use, pt agreed. Red therapy sponge given to pt. Discharge pt from OT serviced due to pt declining to need OT services. All need met in room. 1 refusal KURTIS CLAUDIO Nov 23, 2021 11:12
--- NOTE | 2021-11-23 11:17 | Progress Note - Hospitalist ---
HAILEE GIL 11/23/21 1117: Subjective HPI/CC On Admission Date Seen by Provider: Nov 23, 2021 Time Seen by Provider: 08:45 CC: Cellulitis right foot HPI: 41 yr old WM with multiple hospital stays due to meth use. He presented to the ER with right foot pain and swelling. Pt was found to have right foot zuleika lulitis and considering his type 1 diabetic status he was admitted for broad- spectrum antibiotics of Zosyn and Vancomycin. Dr. Bowie was consulted. Subjective/Events-last exam PT was agitated and appeared anxious this morning. He reports that his R foot continues to be in pain. He denies fevers or chills. He had difficulty answering questions. Review of Systems General: No Chills, No Night Sweats HEENT: No Head Aches, No Visual Changes Pulmonary: No Dyspnea, No Cough Cardiovascular: No: Chest Pain, Palpitations Gastrointestinal: No: Nausea, Vomiting Neurological: No: Weakness, Numbness Focused Exam Lactate Level 11/21/21 15:30: Lactic Acid Level 1.85 Objective Exam Vital Signs Vital Signs Date Time Temp Pulse Resp B/P (MAP) Pulse Ox O2 Delivery O2 Flow Rate FiO2 11/23/21 12:10 37.5 93 18 135/83 (100) 95 Room Air 11/21/21 18:10 21 Capillary Refill : Less Than 3 Seconds General Appearance: Anxious, Mild Distress HEENT: PERRL/EOMI, Pharynx Normal Neck: Full Range of Motion, Normal Inspection Respiratory: Chest Non Tender, Lungs Clear, Normal Breath Sounds, No Accessory Muscle Use, No Respiratory Distress Cardiovascular: Regular Rate, Rhythm, No Edema, No Gallop, No JVD, No Murmur Gastrointestinal: Normal Bowel Sounds, No Organomegaly, No Pulsatile Mass, Non Tender, Soft Extremity: Non Tender, No Calf Tenderness, Swelling (decreased on R foot compared to yesterday ), Other (R foot erythema improved compared to yesterday ) Neurologic/Psychiatric: Other (anxious and agitated ) Skin: Normal Color, Warm/Dry, Erythema (of R foot, improved compared to yesterday ) Results/Procedures Lab Laboratory Tests 11/23/21 05:12 Patient resulted labs reviewed. Assessment/Plan Assessment and Plan Assess & Plan/Chief Complaint Assessment: Cellulitis of R foot Substance use disorder Methamphetamine withdraw Anxiety DM Type 1 Plan: Cellulitis of R foot Continue on IV Vancomycin and Zosyn, R foot erythema appears to be improving with these antibiotics. Appreciate surgery, following to monitor for abscess. Substance use disorder Methamphetamine withdraw Anxiety Ativan as needed. DM Type 1 Continue Insulin Aspart. Clinical Quality Measures DVT/VTE Risk/Contraindication: Contraindications-Mechi: Other *list below* Other: cellulitis of lower leg AUDREY AVENDANO DO 11/24/21 0608: Subjective Subjective/Events-last exam Pt is still very anxious from meth withdrawal Ativan 1 mg is very helpful Cellulitis of the right foot is much improved Blood sugars are very high in the 400's so we will initiate treatment for that with aggressive Levemir and regular insulin Review of Systems Musculoskeletal: foot pain Objective Exam General Appearance: WD/WN, Anxious, Mild Distress Respiratory: Lungs Clear, Normal Breath Sounds Cardiovascular: Regular Rate, Rhythm Neurologic/Psychiatric: Alert, Oriented x3 Assessment/Plan Assessment and Plan Assess & Plan/Chief Complaint Supportive care IV antibiotics Decrease insulin Supervisory-Addendum Brief Verification & Attestation Participated in pt care: history, MDM, physical Personally performed: exam, history, MDM, supervision of care Care discussed with: Medical Student Procedures: n/a Results interpretation: Verified all documentation Verification and Attestation of Medical Student E/M Service A medical student performed and documented this service in my presence. I reviewed and verified all information documented by the medical student and made modifications to such information, when appropriate. I personally performed the physical exam and medical decision making. Audrey Avendano, Nov 24, 2021,06:07 HAILEE GIL Nov 23, 2021 11:17 AUDREY AVENDANO DO Nov 24, 2021 06:08
[2021-11-23] MEDS: NICOTINE 21 MG (NICODERM) PATCH TD SCH (14:09)
--- NOTE | 2021-11-23 14:37 | Progress Note ---
Subjective Date Seen by a Provider: Nov 23, 2021 Time Seen by a Provider: 13:00 Subjective/Events-last exam doing better. shows continued sx of meth withdrawal. redness/erythema of right foot improving. no abscess. Focused Exam Lactate Level 11/21/21 15:30: Lactic Acid Level 1.85 Objective Exam Vital Signs Date Time Temp Pulse Resp B/P (MAP) Pulse Ox O2 Delivery O2 Flow Rate FiO2 11/23/21 12:10 37.5 93 18 135/83 (100) 95 Room Air 11/23/21 08:57 36.5 101 20 133/80 (97) 96 Room Air 11/23/21 08:00 95 Room Air 11/23/21 03:56 37.0 104 18 130/92 (105) 95 Room Air 11/23/21 00:11 37.1 98 20 141/73 (95) 96 Room Air 11/22/21 20:15 Room Air 11/22/21 19:44 37.3 95 18 156/88 (110) 96 Room Air 11/22/21 15:53 37.1 96 19 141/69 (93) 98 Room Air I & O 11/23/21 07:00 Intake Total 2990 ml Balance 2990 ml Capillary Refill : Less Than 3 Seconds General Appearance: No Apparent Distress HEENT: PERRL/EOMI Neck: Full Range of Motion Respiratory: Chest Non Tender Cardiovascular: Regular Rate, Rhythm Gastrointestinal: normal bowel sounds, non tender, soft Extremity: Swelling, Other (decreased redness/erythema right foot.) Neurologic/Psychiatric: Alert, Oriented x3 Skin: Normal Color Lymphatic: No Adenopathy Results Lab Laboratory Tests 11/22/21 15:52: Glucometer 288H 11/22/21 20:48: Glucometer 378H 11/23/21 05:12: White Blood Count 14.3H, Red Blood Count 4.39, Hemoglobin 13.1L, Hematocrit 39L, Mean Corpuscular Volume 90, Mean Corpuscular Hemoglobin 30, Mean Corpuscular Hemoglobin Concent 33, Red Cell Distribution Width 13.4, Platelet Count 461H, Mean Platelet Volume 11.1, Immature Granulocyte % (Auto) 0, Neutrophils (%) (Auto) 76H, Lymphocytes (%) (Auto) 17, Monocytes (%) (Auto) 5, Eosinophils (%) (Auto) 1, Basophils (%) (Auto) 1, Neutrophils # (Auto) 10.8H, Lymphocytes # (Auto) 2.4, Monocytes # (Auto) 0.7, Eosinophils # (Auto) 0.2, Basophils # (Auto) 0.1, Immature Granulocyte # (Auto) 0.1, Sodium Level 130L, Potassium Level 4.9, Chloride Level 95L, Carbon Dioxide Level 19L, Anion Gap 16H, Blood Urea Nitrogen 11, Creatinine 0.91, Estimat Glomerular Filtration Rate 109, BUN/Creatinine Ratio 12, Glucose Level 444*H, Calcium Level 8.9, Corrected Calcium 9.5, Total Bilirubin 0.5, Aspartate Amino Transf (AST/SGOT) 9, Alanine Aminotransferase (ALT/SGPT) 13, Alkaline Phosphatase 89, Total Protein 6.7, Albumin 3.3, Vancomycin Level Trough 6.0L 11/23/21 11:01: Glucometer 181H Microbiology 11/21/21 Blood Culture - Preliminary, Resulted No growth 11/21/21 Urine Culture - Final, Complete NO GROWTH Assessment/Plan Assessment/Plan Assess & Plan/Chief Complaint right foot cellulitis with meth abuse. cont IV abx. recurrence and complicatons rates very high with continued use and risk NSTI. Clinical Quality Measures DVT/VTE Risk/Contraindication: Contraindications-Mechi: Other *list below* Other: cellulitis of lower leg MELA HOLCOMB MD Nov 23, 2021 14:37
[2021-11-24] MEDS: LORazepam 1 MG (ATIVAN) TAB PO PRN ×6 (00:12→21:14)
[2021-11-24] MEDS: PIPERACILLIN SODIUM/TAZOBACTAM 4.5 GM in NS (IVPB) 100 ML IV SCH ×3 (01:57→18:00)
[2021-11-24 04:18] VITALS: BP 143/71
[2021-11-24 05:24] LABS: BASOPHILS # (AUTO) 0.1 10^3/uL (0.0-0.1); BASOPHILS % (AUTO) 1 % (0-10); EOSINOPHILS # (AUTO) 0.3 10^3/uL (0.0-0.3); EOSINOPHILS % (AUTO) 3 % (0-10); HEMATOCRIT 40 % (40-54); HEMOGLOBIN 13.3 g/dL (13.3-17.7); LYMPHOCYTES # (AUTO) 2.4 10^3/uL (1.0-4.0); LYMPHOCYTES % (AUTO) 21 % (12-44); MEAN CORPUSCULAR HEMOGLOBIN 30 pg (25-34); MEAN CORPUSCULAR HGB CONC 33 g/dL (32-36); MEAN CORPUSCULAR VOLUME 90 fL (80-99); MEAN PLATELET VOLUME 10.9 fL (9.0-12.2); MONOCYTES # (AUTO) 0.7 10^3/uL (0.0-1.0); MONOCYTES % (AUTO) 6 % (0-12); NEUTROPHILS # (AUTO) 7.7 10^3/uL (1.8-7.8); NEUTROPHILS % (AUTO) 69 % (42-75); PLATELET COUNT 473 10^3/uL (130-400); WHITE BLOOD COUNT 11.2 10^3/uL (4.3-11.0)
[2021-11-24 05:33] LABS: ALBUMIN 3.1 GM/DL (3.2-4.5)
[2021-11-24 05:34] LABS: POTASSIUM 4.9 MMOL/L (3.6-5.0)
[2021-11-24 05:35] LABS: CALCIUM 8.9 MG/DL (8.5-10.1)
[2021-11-24 05:36] LABS: TOTAL PROTEIN 6.3 GM/DL (6.4-8.2)
[2021-11-24 05:38] LABS: BILIRUBIN,TOTAL 0.4 MG/DL (0.1-1.0)
[2021-11-24 05:40] LABS: CREATININE SERUM 0.82 MG/DL (0.60-1.30)
[2021-11-24] MEDS: VANCOMYCIN 1 GM/NS 250 ML IVPB IV SCH ×6 (05:50→21:15)
[2021-11-24] MEDS: inSUlin ASPART (NovoLOG) 1 UNIT/0.01 ML (CHARGE PER UNIT) SC SCH ×7 (05:50→20:07)
[2021-11-24 08:05] VITALS: BP 126/79
[2021-11-24] MEDS: amLODIPine 5 MG (NORVASC) TAB PO SCH (08:41)
[2021-11-24] MEDS: SENNOSIDES 8.6 MG (SENOKOT) TAB PO SCH ×2 (08:41→21:14)
[2021-11-24] MEDS: NICOTINE 21 MG (NICODERM) PATCH TD SCH (08:42)
[2021-11-24] MEDS: PATCH REMOVAL TP SCH (08:43)
[2021-11-24] MEDS: DOCUSATE SODIUM 100 MG (COLACE) CAP PO SCH ×2 (08:43→21:14)
[2021-11-24] MEDS: ACETAMINOPHEN 325 MG TABLET PO PRN ×4 (08:43→23:37)
[2021-11-24 11:35] VITALS: BP 111/69
--- NOTE | 2021-11-24 12:53 | Progress Note - Hospitalist ---
HAILEE GIL 11/24/21 1253: Subjective HPI/CC On Admission Date Seen by Provider: Nov 24, 2021 Time Seen by Provider: 09:45 CC: Cellulitis right foot HPI: 41 yr old WM with multiple hospital stays due to meth use. He presented to the ER with right foot pain and swelling. Pt was found to have right foot zuleika lulitis and considering his type 1 diabetic status he was admitted for broad- spectrum antibiotics of Zosyn and Vancomycin. Dr. Bowie was consulted. Subjective/Events-last exam The patient was laying in bed this morning and did not appear to be in acute distress. He has not had any fevers. Agitation and anxiety seem to be reduced compared to yesterday. Review of Systems General: No Chills; Other (no fevers) HEENT: No Head Aches, No Visual Changes Pulmonary: No Dyspnea, No Cough Cardiovascular: No: Chest Pain, Palpitations Gastrointestinal: No: Nausea, Vomiting Neurological: No: Change in speech, Confusion Focused Exam Lactate Level 11/21/21 15:30: Lactic Acid Level 1.85 Objective Exam Vital Signs Vital Signs Date Time Temp Pulse Resp B/P (MAP) Pulse Ox O2 Delivery O2 Flow Rate FiO2 11/24/21 11:35 36.1 92 16 111/69 (83) 97 Room Air 11/21/21 18:10 21 Capillary Refill : Less Than 3 Seconds General Appearance: No Apparent Distress, WD/WN HEENT: PERRL/EOMI, Moist Mucous Membranes Neck: Full Range of Motion, Normal Inspection Respiratory: Chest Non Tender, Lungs Clear, Normal Breath Sounds, No Accessory Muscle Use, No Respiratory Distress Cardiovascular: Regular Rate, Rhythm, No Edema, No Gallop, No JVD, No Murmur, Normal Peripheral Pulses Gastrointestinal: Normal Bowel Sounds, No Organomegaly, No Pulsatile Mass, Non Tender, Soft Extremity: Normal Inspection, Normal Range of Motion, Non Tender, No Calf Tenderness, No Pedal Edema, Other (R foot erythema improved compared to yesterday. No pain on R foot palpation. ) Neurologic/Psychiatric: Alert, Oriented x3, No Motor/Sensory Deficits, Normal Mood/Affect Skin: Normal Color, Warm/Dry, Erythema (erythema of right foot reduced compared to yesterday) Results/Procedures Lab Laboratory Tests 11/24/21 05:05 Patient resulted labs reviewed. Assessment/Plan Assessment and Plan Assess & Plan/Chief Complaint Assessment: Cellulitis of R foot Substance use disorder Methamphetamine withdraw Anxiety DM Type 1 Plan: Cellulitis of R foot Continue on IV Vancomycin and Zosyn for 1 more day. Likely will be DC tomorrow on oral antibiotic therapy. [facility] in [place]. Appreciate surgery, for following to monitor for abscess. Substance use disorder Methamphetamine withdraw Anxiety Ativan as needed. DM Type 1 Continue on Levemir, dose lowered from 20 units BID to 10 units BID. Clinical Quality Measures DVT/VTE Risk/Contraindication: Contraindications-Mechi: Other *list below* Other: cellulitis of lower leg AUDREY AVENDANO DO 11/25/21 0533: Subjective Subjective/Events-last exam Right foot is much better Sleeping peacefully overall but when he does wake up he is agitated Meth withdrawal is the usual mode that he is in when he is hospitalized Review of Systems General: Fatigue, Malaise Objective Exam General Appearance: No Apparent Distress, WD/WN, Chronically ill Respiratory: Lungs Clear Extremity: Other (R foot erythema improved compared to yesterday. No pain on R foot palpation. ) Neurologic/Psychiatric: Alert, Oriented x3 Assessment/Plan Assessment and Plan Assess & Plan/Chief Complaint IV antibiotics Discharge home tomorrow Supervisory-Addendum Brief Verification & Attestation Participated in pt care: history, MDM, physical Personally performed: exam, history, MDM, supervision of care Care discussed with: Medical Student Procedures: n/a Results interpretation: Verified all documentation Verification and Attestation of Medical Student E/M Service A medical student performed and documented this service in my presence. I reviewed and verified all information documented by the medical student and made modifications to such information, when appropriate. I personally performed the physical exam and medical decision making. Audrey Avendano, Nov 25, 2021,05:32 HAILEE GIL Nov 24, 2021 12:53 AUDREY AVENDANO DO Nov 25, 2021 05:33
--- NOTE | 2021-11-24 14:04 | Progress Note ---
Subjective Date Seen by a Provider: Nov 24, 2021 Time Seen by a Provider: 14:00 Subjective/Events-last exam doing well. still fatigued and shows signs of meth withdrawal. redness/erythema almost resolved. Focused Exam Lactate Level 11/21/21 15:30: Lactic Acid Level 1.85 Objective Exam Vital Signs Date Time Temp Pulse Resp B/P (MAP) Pulse Ox O2 Delivery O2 Flow Rate FiO2 11/24/21 11:35 36.1 92 16 111/69 (83) 97 Room Air 11/24/21 08:05 36.6 99 14 126/79 (95) 96 Room Air 11/24/21 08:00 95 Room Air 11/24/21 04:18 36.9 84 18 143/71 (95) 96 Room Air 11/23/21 23:29 36.9 94 20 138/79 (98) 96 Room Air 11/23/21 20:40 Room Air 11/23/21 19:51 35.8 83 18 154/85 (108) 97 Room Air 11/23/21 16:00 35.6 89 20 109/62 (78) 96 Room Air I & O 11/24/21 07:00 Intake Total 1830 ml Balance 1830 ml Capillary Refill : Less Than 3 Seconds General Appearance: No Apparent Distress HEENT: PERRL/EOMI Neck: Full Range of Motion Respiratory: Chest Non Tender Cardiovascular: Regular Rate, Rhythm Gastrointestinal: normal bowel sounds, non tender, soft Extremity: Normal Capillary Refill, Other (minimal foot redness/erythema) Neurologic/Psychiatric: Alert, Oriented x3 Skin: Normal Color Lymphatic: No Adenopathy Results Lab Laboratory Tests 11/23/21 15:40: Glucometer 58*L 11/23/21 16:42: Glucometer 195H 11/23/21 20:04: Glucometer 169H 11/24/21 05:05: White Blood Count 11.2H, Red Blood Count 4.47, Hemoglobin 13.3, Hematocrit 40, Mean Corpuscular Volume 90, Mean Corpuscular Hemoglobin 30, Mean Corpuscular Hemoglobin Concent 33, Red Cell Distribution Width 13.5, Platelet Count 473H, Mean Platelet Volume 10.9, Immature Granulocyte % (Auto) 0, Neutrophils (%) (Auto) 69, Lymphocytes (%) (Auto) 21, Monocytes (%) (Auto) 6, Eosinophils (%) (Auto) 3, Basophils (%) (Auto) 1, Neutrophils # (Auto) 7.7, Lymphocytes # (Auto) 2.4, Monocytes # (Auto) 0.7, Eosinophils # (Auto) 0.3, Basophils # (Auto) 0.1, Immature Granulocyte # (Auto) 0.0, Sodium Level 132L, Potassium Level 4.9, Chloride Level 98, Carbon Dioxide Level 21, Anion Gap 13, Blood Urea Nitrogen 16, Creatinine 0.82, Estimat Glomerular Filtration Rate 113, BUN/Creatinine Ratio 20, Glucose Level 384H, Calcium Level 8.9, Corrected Calcium 9.6, Total Bilirubin 0.4, Aspartate Amino Transf (AST/SGOT) 9, Alanine Aminotransferase (ALT/SGPT) 11, Alkaline Phosphatase 75, Total Protein 6.3L, Albumin 3.1L 11/24/21 11:03: Glucometer 126H Microbiology 11/21/21 Blood Culture - Preliminary, Resulted No growth 11/21/21 Urine Culture - Final, Complete NO GROWTH Assessment/Plan Assessment/Plan Assess & Plan/Chief Complaint right foot cellulitis with meth abuse. foot has improved dramatically. cont IV abx. recurrence and complicatons rates very high with continued use and risk NSTI. Clinical Quality Measures DVT/VTE Risk/Contraindication: Contraindications-Mechi: Other *list below* Other: cellulitis of lower leg MELA HOLCOMB MD Nov 24, 2021 14:04
[2021-11-24 16:00] VITALS: BP 106/61
[2021-11-24 20:00] VITALS: BP 141/77
[2021-11-25] VITALS: BP 135/74
[2021-11-25] MEDS: LORazepam 1 MG (ATIVAN) TAB PO PRN ×3 (01:55→09:59)
[2021-11-25] MEDS: PIPERACILLIN SODIUM/TAZOBACTAM 4.5 GM in NS (IVPB) 100 ML IV SCH ×2 (01:55→09:29)
[2021-11-25 04:19] VITALS: BP 145/79
[2021-11-25 05:34] LABS: BASOPHILS # (AUTO) 0.1 10^3/uL (0.0-0.1); BASOPHILS % (AUTO) 1 % (0-10); EOSINOPHILS # (AUTO) 0.5 10^3/uL (0.0-0.3); EOSINOPHILS % (AUTO) 6 % (0-10); HEMATOCRIT 41 % (40-54); HEMOGLOBIN 13.6 g/dL (13.3-17.7); LYMPHOCYTES # (AUTO) 2.7 10^3/uL (1.0-4.0); LYMPHOCYTES % (AUTO) 34 % (12-44); MEAN CORPUSCULAR HEMOGLOBIN 30 pg (25-34); MEAN CORPUSCULAR HGB CONC 33 g/dL (32-36); MEAN CORPUSCULAR VOLUME 90 fL (80-99); MEAN PLATELET VOLUME 10.8 fL (9.0-12.2); MONOCYTES # (AUTO) 0.6 10^3/uL (0.0-1.0); MONOCYTES % (AUTO) 7 % (0-12); NEUTROPHILS % (AUTO) 51 % (42-75); PLATELET COUNT 456 10^3/uL (130-400); WHITE BLOOD COUNT 7.8 10^3/uL (4.3-11.0)
[2021-11-25 05:46] LABS: ALBUMIN 3.2 GM/DL (3.2-4.5); POTASSIUM 4.7 MMOL/L (3.6-5.0)
[2021-11-25 05:49] LABS: TOTAL PROTEIN 6.7 GM/DL (6.4-8.2)
[2021-11-25 05:50] LABS: BILIRUBIN,TOTAL 0.2 MG/DL (0.1-1.0)
[2021-11-25 05:52] LABS: CREATININE SERUM 0.89 MG/DL (0.60-1.30)
[2021-11-25] MEDS: ACETAMINOPHEN 325 MG TABLET PO PRN ×2 (06:03→09:59)
[2021-11-25] MEDS: inSUlin ASPART (NovoLOG) 1 UNIT/0.01 ML (CHARGE PER UNIT) SC SCH ×4 (06:04→12:09)
[2021-11-25] MEDS: VANCOMYCIN 1 GM/NS 250 ML IVPB IV SCH ×2 (06:04)
[2021-11-25 08:02] VITALS: BP 151/87
[2021-11-25] MEDS: amLODIPine 5 MG (NORVASC) TAB PO SCH (09:27)
[2021-11-25] MEDS: DOCUSATE SODIUM 100 MG (COLACE) CAP PO SCH (09:27)
[2021-11-25] MEDS: NICOTINE 21 MG (NICODERM) PATCH TD SCH (09:27)
[2021-11-25] MEDS: SENNOSIDES 8.6 MG (SENOKOT) TAB PO SCH (09:27)
[2021-11-25] MEDS: PATCH REMOVAL TP SCH (09:29)
--- NOTE | 2021-11-25 09:55 | Progress Note ---
Subjective Date Seen by a Provider: Nov 25, 2021 Time Seen by a Provider: 09:40 Subjective/Events-last exam Patient seen with Dr. Bowie. Patient reports doing well. Tolerating diet. Denies any fever/chills or right foot pain. Objective Exam Vital Signs Date Time Temp Pulse Resp B/P (MAP) Pulse Ox O2 Delivery O2 Flow Rate FiO2 11/25/21 08:55 95 Room Air 11/25/21 08:02 36.7 99 20 151/87 (108) 98 Room Air 11/25/21 04:19 36.0 91 20 145/79 (101) 96 Room Air 11/25/21 00:00 36.2 96 20 135/74 (94) 98 Room Air 11/24/21 20:00 95 Room Air 11/24/21 20:00 35.6 94 18 141/77 (98) 99 Room Air 11/24/21 16:00 36.0 93 18 106/61 (76) 94 Room Air 11/24/21 11:35 36.1 92 16 111/69 (83) 97 Room Air I & O 11/25/21 07:00 Intake Total 2350 ml Balance 2350 ml Capillary Refill : Less Than 3 Seconds General Appearance: No Apparent Distress, WD/WN Respiratory: No Accessory Muscle Use, No Respiratory Distress Cardiovascular: Regular Rate, Rhythm, No Edema Gastrointestinal: normal bowel sounds, non tender, soft Extremity: Normal Capillary Refill, Normal Range of Motion, Other (Right foot mild erythema between right great toe and 2nd toe, overall improved) Neurologic/Psychiatric: Alert, Oriented x3 Skin: Normal Color, Warm/Dry Results Lab Laboratory Tests 11/24/21 11:03: Glucometer 126H 11/24/21 15:31: Glucometer 53*L 11/24/21 15:56: Glucometer 159H 11/24/21 20:02: Glucometer 174H 11/25/21 05:15: White Blood Count 7.8, Red Blood Count 4.58, Hemoglobin 13.6, Hematocrit 41, Mean Corpuscular Volume 90, Mean Corpuscular Hemoglobin 30, Mean Corpuscular Hemoglobin Concent 33, Red Cell Distribution Width 13.3, Platelet Count 456H, Mean Platelet Volume 10.8, Immature Granulocyte % (Auto) 0, Neutrophils (%) (Auto) 51, Lymphocytes (%) (Auto) 34, Monocytes (%) (Auto) 7, Eosinophils (%) (Auto) 6, Basophils (%) (Auto) 1, Neutrophils # (Auto) 4.0, Lymphocytes # (Auto) 2.7, Monocytes # (Auto) 0.6, Eosinophils # (Auto) 0.5H, Basophils # (Auto) 0.1, Immature Granulocyte # (Auto) 0.0, Sodium Level 133L, Potassium Level 4.7, Chloride Level 100, Carbon Dioxide Level 21, Anion Gap 12, Blood Urea Nitrogen 18, Creatinine 0.89, Estimat Glomerular Filtration Rate 110, BUN/Creatinine Ratio 20, Glucose Level 343H, Calcium Level 9.0, Corrected Calcium 9.6, Total Bilirubin 0.2, Aspartate Amino Transf (AST/SGOT) 13, Alanine Aminotransferase (ALT/SGPT) 12, Alkaline Phosphatase 81, Total Protein 6.7, Albumin 3.2 Microbiology 11/21/21 Blood Culture - Preliminary, Resulted No growth 11/21/21 Urine Culture - Final, Complete NO GROWTH Assessment/Plan Assessment/Plan Assess & Plan/Chief Complaint A 41 year old male with right foot cellulitis with meth abuse. VSS WBC WNL foot has improved dramatically. cont IV abx. recurrence and complicatons rates very high with continued use and risk NSTI. Clinical Quality Measures DVT/VTE Risk/Contraindication: Contraindications-Mechi: Other *list below* Other: cellulitis of lower leg GORAN CARLSNO [employer] Nov 25, 2021 09:55
[2021-11-25] MEDS ORDERED: INSU100I14 SQ (11:26)
[2021-11-25] MEDS ORDERED: DOXY-311 PO (11:26)
[2021-11-25] MEDS ORDERED: ACHD5005 PO (11:26)
[2021-11-25] MEDS ORDERED: INSU100I10 SQ ×2 (11:26)
--- NOTE | 2021-11-25 11:27 | Discharge Summary ---
Discharge Summary Hospital Course Was the Problem List Reviewed?: Yes Problems/Dx: (1) Cellulitis of right foot Status: Acute (2) DM type 1 (diabetes mellitus, type 1) Status: Acute Qualifiers: Qualified Codes: E10.69 - Type 1 diabetes mellitus with other specified complication (3) Methamphetamine use Status: Acute Hospital Course Date of Admission: Nov 21, 2021 at 16:37 Admission Diagnosis : Family Physician/Provider: [place] Date of Discharge: 11/25/21 Discharge Diagnosis: Right leg cellulitis, history of MRSA, type 1 diabetes, meth use with withdrawal Hospital Course: The patient is a 41 YO male with a PMH of type 1 DM and substance use disorder who presented to ED at [facility] in [place] on 11/21/21 due to complaints of an infected R foot. He was seen at the [facility] clinic the day before his ED visit and was given a Rocephin injection and was Rx'd oral Doxycycline which he took 4 PO worth of the antibiotic. The patient was admitted for cellulitis of the R foot and was started on IV Zosyin and Vancomycin therapy. Surgery was consulted to monitor for foot abscess. The patient's cellulitis responded very well with the Zosyin and Vancomycin therapy. Surgery did not find an abscess throughout his hospital stay. The patient did have episodes of anxiety d/t methamphetamine withdraw throughout his stay, which was controlled with PRN Ativan. He received insulin therapy throughout his hospital stay for his DM. The patient will be DC today on oral Doxycycline therapy. He does have some left over Doxycycline from the [facility] Rx, which he will finish. An Rx Doxycycline was sent to the [facility] in [place] to fill for the remainder of his antibiotic course. Appreciate surgery, OT and PT. HAILEE GIL Labs and Pending Lab Test: Laboratory Tests 11/24/21 15:31: Glucometer 53*L 11/24/21 15:56: Glucometer 159H 11/24/21 20:02: Glucometer 174H 11/25/21 05:15: White Blood Count 7.8, Red Blood Count 4.58, Hemoglobin 13.6, Hematocrit 41, Mean Corpuscular Volume 90, Mean Corpuscular Hemoglobin 30, Mean Corpuscular Hemoglobin Concent 33, Red Cell Distribution Width 13.3, Platelet Count 456H, Mean Platelet Volume 10.8, Immature Granulocyte % (Auto) 0, Neutrophils (%) (Aut o) 51, Lymphocytes (%) (Auto) 34, Monocytes (%) (Auto) 7, Eosinophils (%) (Auto) 6, Basophils (%) (Auto) 1, Neutrophils # (Auto) 4.0, Lymphocytes # (Auto) 2.7, Monocytes # (Auto) 0.6, Eosinophils # (Auto) 0.5H, Basophils # (Auto) 0.1, Immature Granulocyte # (Auto) 0.0, Sodium Level 133L, Potassium Level 4.7, Chloride Level 100, Carbon Dioxide Level 21, Anion Gap 12, Blood Urea Nitrogen 18, Creatinine 0.89, Estimat Glomerular Filtration Rate 110, BUN/Creatinine Ratio 20, Glucose Level 343H, Calcium Level 9.0, Corrected Calcium 9.6, Total Bilirubin 0.2, Aspartate Amino Transf (AST/SGOT) 13, Alanine Aminotransferase (ALT/SGPT) 12, Alkaline Phosphatase 81, Total Protein 6.7, Albumin 3.2 Microbiology 11/21/21 Blood Culture - Preliminary, Resulted No growth 11/21/21 Urine Culture - Final, Complete NO GROWTH Home Meds Active Hydrocodone-Acetamin 5-325 mg (Hydrocodone/Acetaminophen) 1 Each Tablet 1 Tab PO Q4H PRN Doxycycline Monohydrate 100 Mg Capsule 100 Mg PO BID Lantus Solostar (Insulin Glargine,Hum.rec.anlog) 100 Unit/1 Ml Insuln.pen 20 Unit SQ HS Lantus Solostar (Insulin Glargine,Hum.rec.anlog) 100 Unit/1 Ml Insuln.pen 25 Unit SQ DAILY Novolog Flexpen (Insulin Aspart) 300 Units/3 Ml Solution 7 Units SQ AC Reported Ibuprofen 200 Mg Tablet 800 Mg PO Q8H PRN TAKES 4 (200MG) TAB Assessment/Pt Instructions PCP in 1 week Discharge Planning: <30 minutes discharge planning Discharge Physical Examination Vital Signs Vital Signs Date Time Temp Pulse Resp B/P (MAP) Pulse Ox O2 Delivery O2 Flow Rate FiO2 11/25/21 08:55 95 Room Air 11/25/21 08:02 36.7 99 20 151/87 (108) 11/21/21 18:10 21 General Appearance: No Apparent Distress, WD/WN, Chronically ill Skin: Other (No erythema the right foot) Allergies: Coded Allergies: No Known Drug Allergies (Unverified , 12/02/13) Discharge Summary Date of Admission Nov 21, 2021 at 16:37 Date of Discharge Discharge Date: Nov 25, 2021 Admission Diagnosis Assessment: Right foot cellulitis Meth use Meth withdrawal with anxiety Type 1 diabetes Plan: Antibiotics Supportive care Discharge Diagnosis IV antibiotics Discharge home tomorrow Clinical Quality Measures DVT/VTE Risk/Contraindication: Contraindications-Mechi: Other *list below* Other: cellulitis of lower leg ANDRES AVENDANO DO Nov 25, 2021 11:27
[2021-11-25 11:32] VITALS: BP 124/79
[2021-11-25 12:28] VITALS: BP 151/87
--- NOTE | 2021-11-25 14:07 | Progress Note ---
HAILEE GIL 11/25/21 1407: Progress Note The patient is a 41 YO male with a PMH of type 1 DM and substance use disorder who presented to ED at [facility] in [place] on 11/21/21 due to complaints of an infected R foot. He was seen at the [facility] clinic the day before his ED visit and was given a Rocephin injection and was Rx'd oral Doxycycline which he took 4 PO worth of the antibiotic. The patient was admitted for cellulitis of the R foot and was started on IV Zosyin and Vancomycin therapy. Surgery was consulted to monitor for foot abscess. The patient's cellulitis responded very well with the Zosyin and Vancomycin therapy. Surgery did not find an abscess throughout his hospital stay. The patient did have episodes of anxiety d/t methamphetamine withdraw throughout his stay, which was controlled with PRN Ativan. He received insulin therapy throughout his hospital stay for his DM. The patient will be DC today on oral Doxycycline therapy. He does have some left over Doxycycline from the [facility] Rx, which he will finish. An Rx Doxycycline was sent to the [facility] in [place] to fill for the remainder of his antibiotic course. Appreciate surgery, OT and PT. AUDREY AVENDANO DO 11/26/21 0516: Supervisory-Addendum Brief Verification & Attestation Participated in pt care: history, MDM, physical Personally performed: exam, history, MDM, supervision of care Care discussed with: Medical Student Procedures: n/a Results interpretation: Verified all documentation Verification and Attestation of Medical Student E/M Service A medical student performed and documented this service in my presence. I reviewed and verified all information documented by the medical student and made modifications to such information, when appropriate. I personally performed the physical exam and medical decision making. Audrey Avendano, Nov 26, 2021,05:16 HAILEE GIL Nov 25, 2021 14:07 AUDREY AVENDANO DO Nov 26, 2021 05:16
== END 2021-11-25 12:45 | disposition home or self-care (01) | DRG 603 ==
LOC: EDUNIT# 14:28 → ER 14:28 → 4TH 16:37
PROVIDERS: ADMIT Internal Medicine; ATTEND Internal Medicine
DX: L03.115 Cellulitis of right lower limb (principal); F15.13 Other stimulant abuse with withdrawal; E10.9 Type 1 diabetes mellitus without complications; Z59.00 Homelessness unspecified; F14.10 Cocaine abuse, uncomplicated; F10.10 Alcohol abuse, uncomplicated; F15.180 Other stimulant abuse with stimulant-induced anxiety disorder; F12.10 Cannabis abuse, uncomplicated; I10 Essential (primary) hypertension; E78.00 Pure hypercholesterolemia, unspecified; Z79.4 Long term (current) use of insulin; F25.0 Schizoaffective disorder, bipolar type; F90.9 Attention-deficit hyperactivity disorder, unspecified type; Z91.19 Patient's noncompliance with other medical treatment and regimen; Z87.891 Personal history of nicotine dependence; Z81.1 Family history of alcohol abuse and dependence; Z82.49 Family history of ischemic heart disease and other diseases of the circulatory system
CPT/HCPCS: 36415; 80053; 80202; 81000; 82947; 83605; 84145; 85007; 85025; 85027; 85610; 85730; 86141; 87040; 87088